=== PATIENT | male | born 1950 ===

== ENCOUNTER 2025-07-14 13:02 | Outpatient (BNV) | payer MEDICARE, SELFPAY | END 2025-07-21 15:26 | PROVIDERS: Admitting Provider Psychiatry & Neurology Psychiatry; Visit Provider Radiology Diagnostic Radiology | DX: K42.9 Umbilical hernia without obstruction or gangrene (principal); N28.1 Cyst of kidney, acquired; M16.0 Bilateral primary osteoarthritis of hip; M47.815 Spondylosis without myelopathy or radiculopathy, thoracolumbar region; M54.16 Radiculopathy, lumbar region; M48.061 Spinal stenosis, lumbar region without neurogenic claudication | CPT/HCPCS: 72132; 74178 ==

== ENCOUNTER 2025-07-14 13:02 | Outpatient (BNV) | payer MEDICARE, MEDICAID, SELFPAY | END 2025-07-17 07:23 | PROVIDERS: Admitting Provider Psychiatry & Neurology Psychiatry; Visit Provider Radiology Diagnostic Radiology | DX: R79.89 Other specified abnormal findings of blood chemistry (principal) | CPT/HCPCS: 76775 ==

== ENCOUNTER 2025-07-14 13:02 | Outpatient (BNV) | payer MEDICARE, SELFPAY | END 2025-08-08 14:59 | PROVIDERS: Admitting Provider Psychiatry & Neurology Psychiatry; Visit Provider Radiology Diagnostic Radiology | DX: S09.90XA Unspecified injury of head, initial encounter (principal) | CPT/HCPCS: 70450 ==

== ENCOUNTER 2025-07-14 13:02 | Outpatient (BNV) | payer MEDICARE, MEDICAID, SELFPAY | END 2025-07-19 11:20 | PROVIDERS: Admitting Provider Psychiatry & Neurology Psychiatry; Visit Provider Radiology Diagnostic Radiology | DX: N25.0 Renal osteodystrophy (principal); M25.551 Pain in right hip; M25.552 Pain in left hip; M48.062 Spinal stenosis, lumbar region with neurogenic claudication; R06.02 Shortness of breath | CPT/HCPCS: 71046; 72100; 73521 ==

== ENCOUNTER 2025-07-14 13:02 | Outpatient (BNV) | payer MEDICARE, MEDICAID, SELFPAY | END 2025-07-15 15:24 | PROVIDERS: Admitting Provider Psychiatry & Neurology Psychiatry; Visit Provider Radiology Diagnostic Radiology | DX: R07.1 Chest pain on breathing (principal) | CPT/HCPCS: 71045 ==

== ENCOUNTER 2025-07-14 13:02 | Outpatient (BNV) | payer MEDICARE, SELFPAY | END 2025-08-12 03:16 | PROVIDERS: Admitting Provider Psychiatry & Neurology Psychiatry; Visit Provider Radiology Diagnostic Radiology | DX: I51.7 Cardiomegaly (principal); R91.8 Other nonspecific abnormal finding of lung field | CPT/HCPCS: 71046 ==

== ENCOUNTER 2025-07-14 13:02 | Outpatient (BNV) | payer MEDICARE, SELFPAY | END 2025-07-30 14:03 | PROVIDERS: Admitting Provider Psychiatry & Neurology Psychiatry; Visit Provider Internal Medicine Cardiovascular Disease | DX: I44.0 Atrioventricular block, first degree (principal) | CPT/HCPCS: 93010 ==

== ENCOUNTER 2025-07-14 13:02 | Outpatient (BNV) | payer MEDICARE, SELFPAY | END 2025-07-30 15:29 | PROVIDERS: Admitting Provider Psychiatry & Neurology Psychiatry; Visit Provider Radiology Diagnostic Radiology | DX: Z03.89 Encounter for observation for other suspected diseases and conditions ruled out (principal) | CPT/HCPCS: 71046 ==

== ENCOUNTER 2025-07-14 13:02 | Inpatient (IN) | payer MEDICARE, SELFPAY ==
--- NOTE | ~2025-07-14 | XR_ITS ---
CLINICAL HISTORY: punched wall: swollen black and blue 3 view right hand Comparison: None provided Findings: Bones intact. No dislocations. No significant loss of joint space or osteophytes. No erosions. No radiopaque foreign body. IMPRESSION: 1. No acute findings This document has been electronically signed by: Kirill Shaver MD on 08/09/2025 18:57:46
--- NOTE | ~2025-07-14 | XR_ITS ---
EXAMINATION: XR HIP 2 OR MORE VIEWS BILATERAL HISTORY: Pain COMPARISON: There are no prior studies available for comparison. FINDINGS: A single AP view of the pelvis and two views of each hip are submitted. There is patchy increased sclerosis of the bones which may be due to renal osteodystrophy. Other etiologies are not excluded. There is no fracture or dislocation. The joint spaces are maintained. The soft tissues are unremarkable. XR/XR hip BI w PEL1V IMPRESSION: Patchy increased sclerosis which may be due to renal osteodystrophy. Other etiologies including metastatic disease are not excluded. Clinical correlation is recommended. Electronically signed by: Brice Bunch MD 07/19/2025 11:49 AM EDT
--- NOTE | ~2025-07-14 | CT_ITS ---
EXAMINATION: CT LUMBAR SPINE CLINICAL INFORMATION: Bilateral leg weakness and pain. COMPARISON: X-ray lumbar spine 07/19/2025. TECHNIQUE: 2 minute thin axial and reformatted 2 minute thin sagittal and coronal images of lumbar spine were obtained following IV 85 mL Omnipaque 350.. This CT examination was performed using dose optimization techniques as appropriate, variously including the following: *Automated exposure control *Adjustment of mA and/or kV according to patient size (this includes techniques or standardized protocols for targeted exams where dose is matched to indication/reason for exam; i.e. extremities or head) *Use of iterative reconstruction technique FINDINGS: Sagittal reconstructed images there is mild straightening of lumbar lordosis. The vertebral heights and alignment is normal. There is mild congenital narrowing of the entire lower dorsal and lumbar spinal canal. At T12-L1 disc level there is mild congenital spinal canal stenosis there is moderate narrowing of right neural foramina secondary to facet joint arthropathy. The left neural foramina is relatively patent. At L1-2 disc level there is mild congenital spinal canal stenosis. The neural foramina are patent bilaterally. At L2-3 disc level there is moderate congenital spinal canal stenosis with mild bilateral facet joint and ligament flavum hypertrophy resulting in moderate right lateral recess narrowing. There is a small bony spur projecting of the right facet joint and extending to the right lateral recess on axial and sagittal image 48/13 and 49/18 respectively. At L3-4 disc level there is diffuse disc bulge and bilateral facet joint hypertrophy resulting in moderate congenital spinal canal stenosis. The neural foramina are mildly narrowed bilaterally. At L4-5 disc level there is a broad-based diffuse bulge with moderate spinal canal stenosis. There is bilateral moderate facet joint arthropathy and hypertrophy resulting in bilateral mild narrowing of neural foramina. At L5-S1 disc level there is mild bulge with mild concentric spinal canal stenosis. The neural foramina are mildly narrowed bilaterally. There is no abnormal enhancement seen within the lower dorsal spinal canal or the region of conus to suspect any underlying lesion. No lytic or sclerotic process seen. No evidence of compression fracture. Visualized SI joints are symmetrical and normal. The presacral and paravertebral soft tissues are normal. CT/CT lumbar spine w IV con IMPRESSION: Congenital lumbar spinal canal stenosis from T12 through L5-S1 disc level as described above. Mild narrowing of neural foramina bilaterally at along the lumbar spinal canal. The findings are slightly worse on the right at the T12-L1 disc level there is a right facet joint hypertrophy extending into the neural foramina and a small bony spur extending into right lateral recess at the L2-3 disc level. No abnormal enhancement seen within the lower dorsal or lumbar spinal canal or the region of conus medullaris. If patient has persistent radiculopathy and numbness and tingling in the legs further evaluation with neurology may be helpful. Electronically signed by: Gabo Bush MD 07/22/2025 07:26 AM EDT
--- NOTE | ~2025-07-14 | XR_ITS ---
EXAMINATION: XR CHEST 2 VIEWS HISTORY: cough, SOB COMPARISON: Comparison is made with the prior examination dated 07/17/2025. FINDINGS: PA and lateral views of the chest are submitted. There is patchy airspace opacity at the right lung base without change, suspicious for early pneumonia. The left lung is clear. There is no pleural effusion, pneumothorax, or pulmonary vascular congestion. The heart is normal in size. The aorta is calcified. There is degenerative disc disease of the spine. XR/XR chest 2V IMPRESSION: Right lower lobe pneumonia. Follow-up is recommended to document resolution. Electronically signed by: Brice Bunch MD 07/19/2025 11:44 AM EDT
--- NOTE | ~2025-07-14 | CT_ITS ---
EXAMINATION: CT HEAD WITHOUT IV CONTRAST HISTORY: head injury. TECHNIQUE: Unenhanced helical CT of the head was performed per standard departmental protocol. Coronal and sagittal reformats of the head were also evaluated. One or more of the following techniques was used for dose reduction: Automated exposure control, adjustment of the mA and/or kV according to patient size, use of iterative reconstruction technique. DLP: 905 mGy-cm COMPARISON: There are no prior studies available for comparison. FINDINGS: BRAIN: There is mild prominence of the ventricular system and cortical sulci, consistent with atrophy. Periventricular and subcortical white matter hypodensities are noted which are nonspecific, but often seen in the setting of small vessel ischemic disease. There is no mass effect or midline shift. No intra- or extra-axial fluid collections are identified. SINUSES: There is mild mucosal thickening in the left maxillary sinus. The mastoid air cells and middle ear cavities are well pneumatized. ORBITS: The visualized orbits are unremarkable. BONES/SOFT TISSUES: The extracranial soft tissues are unremarkable. The calvarium is intact. No suspicious lytic or sclerotic lesions. CT/CT head/brain wo IV con IMPRESSION: No evidence of intracranial hemorrhage. Electronically signed by: Brice Bunch MD 08/08/2025 03:28 PM ANDREW
--- NOTE | ~2025-07-14 | XR_ITS ---
CLINICAL HISTORY: Fever, hypoxia 2 view chest x-ray Comparison: 07/30/2025 Findings: There are new patchy multifocal bilateral pulmonary infiltrates most significant within the right lower lobe. There are likely new small bilateral pleural effusions. There is stable cardiomegaly. No acute fracture. IMPRESSION: Stable cardiomegaly Multifocal new bilateral pulmonary infiltrates most significant within the right lower lobe likely pneumonia Likely new small bilateral pleural effusions This document has been electronically signed by: Brice Richmond MD on 08/12/2025 05:29:50
--- NOTE | ~2025-07-14 | XR_ITS ---
CLINICAL HISTORY: Chest Xray 2 view chest x-ray. Comparison: 07/19/2025 Findings: No consolidation or effusion. Cardiac and mediastinal contours are stable. Bones unremarkable. Impression: 1. No acute pulmonary disease. This document has been electronically signed by: Héctor Parikh MD on 07/30/2025 16:06:55
--- NOTE | ~2025-07-14 | XR_ITS ---
EXAMINATION: XR LUMBAR SPINE 2-3 VIEWS HISTORY: Pain COMPARISON: There are no prior studies for comparison. FINDINGS: AP, lateral, and coned down views of the lumbar spine are submitted. Osseous mineralization is normal. Five nonrib-bearing lumbar vertebral bodies are identified, maintaining normal height and alignment without evidence of fracture or spondylolisthesis. There is mild degenerative disc disease with disc space narrowing and osteophyte formation. The posterior elements are intact. There is calcification of the abdominal aorta. XR/XR lumbar spine 2-3V IMPRESSION: Mild degenerative disc disease. Electronically signed by: Brice Bunch MD 07/19/2025 11:50 AM EDT
--- NOTE | ~2025-07-14 | CT_ITS ---
EXAMINATION: CT ABDOMEN AND PELVIS WITHOUT AND WITH CONTRAST CLINICAL INFORMATION: Persistent bilateral hip pain. COMPARISON: None available. TECHNIQUE: Multidetector volumetric imaging was performed of the abdomen and pelvis before and after the IV administration of 85 mL of Omnipaque 350 strength intravenous contrast without reported immediate complications. Sagittal and coronal reformatted images were obtained on the technologist's workstation. This CT examination was performed using dose optimization techniques as appropriate, variously including the following: *Automated exposure control *Adjustment of mA and/or kV according to patient size (this includes techniques or standardized protocols for targeted exams where dose is matched to indication/reason for exam; i.e. extremities or head) *Use of iterative reconstruction technique. Total of DLP: 1389 mGy centimeter. FINDINGS: LUNG BASES: Pulmonary patchy groundglass. Peribronchial septal thickening. LIVER, GALLBLADDER, AND BILIARY TREE: Liver measures 14 cm. No focal enhancing mass. Portal veins and hepatic veins are patent.. Gallbladder is contracted. No pericholecystic fluid collection or gallbladder wall thickening. No intrahepatic or extrahepatic biliary ductal dilatation. PANCREAS: No peripancreatic fluid collections. No focal mass. Fatty morphology pattern and reduced volume. No main pancreatic ductal dilatation. SPLEEN: 11 cm. No focal mass. ADRENAL GLANDS: No nodular lesions. KIDNEYS AND URETERS: No hydronephrosis. No nephrolithiasis. Normal enhancement pattern of the renal cortex. 1.2 cm cyst at the corticomedullary junction of the midportion left kidney. No enhancing renal mass.. BLADDER: Fluid-filled. GASTROINTESTINAL TRACT: Radiopaque tablet in the antrum of the stomach. Abundant stool throughout the large intestine. No intestinal obstruction pattern. Appendix is normal. No intestinal wall thickening. No pneumatosis intestinalis. No ascites. No pneumoperitoneum. ABDOMINAL WALL: Fat-containing lobulated umbilical hernia. LYMPH NODES: Nonspecific mildly prominent mesenteric and retroperitoneum and inguinal. VASCULAR: Mixed plaques throughout the abdominal aorta wall without aneurysm or dissection. Mixed plaques in the iliac arteries and femoral arteries calcified plaques in the coronary arteries. Mixed plaques in the descending thoracic aorta. Vascular calcifications in the renal arteries mostly on the left kidney. PELVIC VISCERA: Not enlarged. OSSEOUS STRUCTURES: Multilevel marginal osteophyte formation and syndesmophyte formation throughout the axial skeleton without acute fracture or gross listhesis. Multilevel calcification of the ligamentum flavum from T12-L1 to L4-5. Bilateral facet joint hypertrophy at multiple levels pronounced at L4-5 and L5-S1. Multilevel central spinal canal stenosis from L2-3 to L5-S1. Sclerosis at the sacroiliac joints, bilaterally. Degenerative changes in the symphysis pubis and coxofemoral joints. Degenerative changes with the soft tissue calcifications in the greater trochanter left femur/left hip. Fatty atrophy of the gluteal muscles CT/CT abdomen pelvis wo/w IV con IMPRESSION: Lobulated fat-containing umbilical hernia. Atelectasis versus airspace disease, lung bases. Abundant stool without intestinal obstruction pattern. Simple cyst, left kidney. Degenerative changes both hips with questionable trochanter bursitis. Multilevel thoracolumbar spondylosis resulting in central spinal canal stenosis. Please for to the CT lumbar spine. Fleischner guidelines were followed. Electronically signed by: Brice Thompson MD 07/22/2025 07:57 AM EDT
--- NOTE | ~2025-07-14 | XR_ITS ---
CLINICAL HISTORY: chest congestion, crackles lower lobes 1 view chest x-ray Comparison: 07/15/2025 Findings: There is mild right basilar pulmonary infiltrate. Heart size is normal. No acute fracture. IMPRESSION: Mild right basilar pulmonary infiltrate suspicious for pneumonia This document has been electronically signed by: Brice Richmond MD on 07/17/2025 08:50:44
--- NOTE | ~2025-07-14 | CT_ITS ---
CLINICAL HISTORY: ? pna on cxr CT chest without contrast Comparison: CR - XR CHEST 1V - 07/17/25 07:23 EDT Findings: Mild cardiomegaly.Trace pericardial effusion. Calcific coronary artery disease: Mild. Shotty mediastinal lymph nodes likely reactive Mild interstitial and bronchial wall thickening lung bases possibly pneumonic. No pneumothorax or pleural effusions, plaques or calcifications. Central airways are patent. No bronchiectasis. No thyroid nodules. Probable gynecomastia [id number]-[id number]-left correlate clinically. No axillary adenopathy. Limited view of the upper abdomen is normal. No acute fractures or pathologic bone lesions. Impression: 1. Mild interstitial and bronchial wall thickening lung bases probably pneumonic. No airspace disease. No parapneumonic effusion. Reactive mediastinal lymph nodes. 2. Mild calcified coronary artery disease. Mild cardiomegaly. Trace pericardial effusion. 3. Suspect gynecomastia correlate clinically This document has been electronically signed by: Sheldon Brito MD on 07/17/2025 11:38:47
--- NOTE | ~2025-07-14 | US_ITS ---
CLINICAL HISTORY: worsning creatinine US Renal Comparison: None provided Findings: Right kidney normal size and echotexture, 11.8 cm length. Left kidney normal size and echotexture, 10.6 cm length. There is a Bosniak 1 left renal cortical 1.6 x 1.4 x 1.3 cm cyst No collecting system dilatation of either kidney. Normal color Doppler. IMPRESSION: 1. No acute findings. This document has been electronically signed by: Kasi Drummond MD on 07/17/2025 08:51:51
--- NOTE | ~2025-07-14 | XR_ITS ---
EXAMINATION: XR CHEST 1 VIEW HISTORY: Pain with inspiration COMPARISON: There are no prior studies available for comparison. FINDINGS: A single AP portable view of the chest performed at 3:13 PM is submitted. The lungs are expanded and clear. There is no pleural effusion, pneumothorax, or pulmonary vascular congestion. The heart is normal in size. The bones are intact. XR/XR chest 1V IMPRESSION: Clear lungs. Electronically signed by: Brice Bunch MD 07/15/2025 03:40 PM EDT
--- NOTE | ~2025-07-14 | XR_ITS ---
CLINICAL HISTORY: severe abd pain 1 view abdomen Comparison: None provided Findings: No pneumoperitoneum or pneumatosis. No abnormal calcifications. No acute fractures. There is diffuse fecal material seen throughout the colon. IMPRESSION: 1. Constipation. 2. No acute abdominal findings. This document has been electronically signed by: Kirill hSaver MD on 08/09/2025 21:12:03
[2025-07-14 13:58] VITALS: BMI 38.2
[2025-07-14 13:58] LABS: Glucose, Whole Blood 258 mg/dL (60-115)
[2025-07-14 16:26] LABS: Glucose, Whole Blood 298 mg/dL (60-115)
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
[2025-07-14 20:00] VITALS: BP 122/60; PULSE 69; RESP 16; TEMP 36.4; O2SAT 94
[2025-07-14 20:30] LABS: Glucose, Whole Blood 208 mg/dL (60-115)
[2025-07-14] MEDS: Insulin Glargine,Hum.rec.anlog 100 UNIT/ML 10 ML VIAL 50 UNIT SUBCUT (21:14)
[2025-07-14] MEDS: Ferrous Sulfate 324 MG TABLET.DR PO (21:15)
[2025-07-15 06:43] LABS: Glucose, Whole Blood 163 mg/dL (60-115)
[2025-07-15 08:00] VITALS: BP 83/50; PULSE 91; RESP 16; TEMP 36.5; O2SAT 96
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
[2025-07-15] MEDS: Ferrous Sulfate 324 MG TABLET.DR PO ×3 (09:02→20:38)
[2025-07-15 09:06] LABS: Alanine Aminotransferase 13 U/L (0-40); Albumin Level 3.6 g/dL (3.5-5.0); Alkaline Phosphatase 81 U/L (39-117); Anion Gap 11 (12-20); Aspartate Amino Transferase 17 U/L (5-37); Blood Urea Nitrogen 44 mg/dL (9-16); Calcium 8.8 mg/dL (8.4-10.2); Carbon Dioxide 26 mmol/L (22-29); Chloride 103 mmol/L (96-108); Cholesterol 92 mg/dL (<200); Creatinine Clr Calc Pharmacy 40.1; Estimated Glomerular Filt Rate 38; HDL Cholesterol 23 mg/dL (>40); Potassium 4.9 mmol/L (3.3-5.1); Sodium 135 mmol/L (135-145); Total Protein 7.5 g/dL (6.5-8.0); Triglycerides 137 mg/dL (<150)
[2025-07-15 09:14] LABS: Thyroid Stimulating Hormone 2.53 uIU/mL (0.32-4.0)
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
[2025-07-15 09:54] LABS: Vitamin B12 941 pg/mL (200-900)
[2025-07-15 10:20] LABS: Folate 14.7 ng/mL (> or = 4.0)
[2025-07-15 11:04] VITALS: BP 114/58; PULSE 75
[2025-07-15 11:34] VITALS: BP 105/52
[2025-07-15 11:34] LABS: Glucose, Whole Blood 235 mg/dL (60-115)
[2025-07-15 12:27] VITALS: BP 105/49; BP 95/47; PULSE 78; PULSE 84
--- NOTE | 2025-07-15 15:28 | HO.WOUND ---
Wound Consult: Initial 75yr old?male admitted to [facility] on 07/14/25 13:02- See progress notes and H&P for detailed history.? Wound consult placed for abrasions to left hand and left leg.? Patient was not responsive to environment at the time of consult, chart review reveals these are self inflicted abrasions. ? Left Hand Left Leg Etiology: ?self inflicted abrasions Wound Bed: dry stable scabs in place no erythema no s/s of infection at this time Drainage / Odor: None Edges: ? linear and well defined Krysta wound: ? No Induration, Fluctuance or Warmth noted Goals of Treatment: ? May leave FURNACE [employer] TE[employer] and keep dry. No topical interventions needed at this time - may leave DILAN may cover with dry dressing for slight oozing or comfort. Reconsult wound care or provider if significant drainage occurs or s/s of infection develop. Re-consult wound care Nurse for wound deterioration or wound changes.
[2025-07-15] MEDS: Flu Vacc TS2025-26(6mo up)/PF 0.5 ML SYRINGE IM (15:52)
[2025-07-15 16:30] LABS: Glucose, Whole Blood 218 mg/dL (60-115)
[2025-07-15 20:00] VITALS: BP 185/55; RESP 18; TEMP 36.5; O2SAT 95
[2025-07-15] MEDS: Insulin Glargine,Hum.rec.anlog 100 UNIT/ML 10 ML VIAL 50 UNIT SUBCUT (20:38)
[2025-07-15 20:39] LABS: Glucose, Whole Blood 218 mg/dL (60-115)
[2025-07-16 06:51] LABS: Glucose, Whole Blood 165 mg/dL (60-115)
[2025-07-16] MEDS: Ferrous Sulfate 324 MG TABLET.DR PO ×3 (08:25→21:14)
[2025-07-16 08:27] VITALS: BP 114/59; PULSE 85; RESP 18; TEMP 36.2; O2SAT 96
[2025-07-16] MEDS: Metoprolol Succinate ER 50 MG TAB.ER.24H PO (08:28)
[2025-07-16 09:29] VITALS: BP 151/68; PULSE 80
[2025-07-16 11:30] LABS: Glucose, Whole Blood 220 mg/dL (60-115)
--- NOTE | 2025-07-16 13:04 | P.PNPSI_ITS ---
Subjective Subjective Date of Service: 07/16/25 Reason For Visit: Depression Subjective Notes: Conditional Voluntary Interim History: He is seen and discussed in rounds today. Records and plans were reviewed. He does have command hallucinations, at times telling him to hurt himself which she has been doing by picking his skin. Apparently his creatinine level was 1.2 at [facility] and here has gone up to 1.7. No orthostasis detected. A hospitalist consult is placed in light of his CHF Review of Systems Review of Systems Yes all other systems are reviewed and are negative Mental Status Exam Mental Status Exam Narrative: Appearance: wearing hospital gown, fair hygiene, in NAD Behavior: cooperative, friendly Psychomotor: no agitation or retardation noted Speech: clear, normal rate/rhythm/volume, spontaneous TP: linear TC: hearing voices, depressed about not having stable place to live. Mood: Affect: SI: reports at times does have thoughts of wanting to hurt himself when hearing voices HI: none VH/AH: Delusions: Insight/judgment: fair x 2. Memory/cog: alert, oriented x 3. not formally tested. Diagnostics Vital Signs (24Hr): Vital Signs - 24 hr 07/15/25 20:00 07/16/25 08:27 07/16/25 09:29 Temperature 97.7 F 97.2 F Pulse Rate 85 80 Respiratory Rate 18 18 Blood Pressure 185/55 H 114/59 L 151/68 H Pulse Oximetry 95 96 Oxygen Delivery Method Room Air Room Air BMI result Body Mass Index 38.2 Labs 07/15/25 07:26 Labs: Laboratory Results - last 48 hr 07/14/25 07/14/25 07/14/25 13:54 16:08 20:10 Sodium Potassium Chloride Carbon Dioxide Anion Gap BUN Creatinine Estim Creat Clear Calc Estimated GFR POC Glucose 258 H 298 H 208 H Random Glucose Estimat Average Glucose Hemoglobin A1c % Calcium Total Bilirubin AST ALT Alkaline Phosphatase Total Protein Albumin Triglycerides Cholesterol LDL Cholesterol, Calc HDL Cholesterol Vitamin B12 25-OH Vitamin D Total Folate TSH 07/15/25 07/15/25 07/15/25 06:36 07:26 11:25 Sodium 135 Potassium 4.9 Chloride 103 Carbon Dioxide 26 Anion Gap 11 L BUN 44 H Creatinine 1.74 H Estim Creat Clear Calc 40.1 Estimated GFR 38 POC Glucose 163 H 235 H Random Glucose 162 H Estimat Average Glucose 214 Hemoglobin A1c % 9.1 H Calcium 8.8 Total Bilirubin 0.2 AST 17 ALT 13 Alkaline Phosphatase 81 Total Protein 7.5 Albumin 3.6 Triglycerides 137 Cholesterol 92 LDL Cholesterol, Calc 42 HDL Cholesterol 23 L Vitamin B12 941 H 25-OH Vitamin D Total 19.6 L Folate 14.7 TSH 2.53 07/15/25 07/15/25 07/16/25 16:22 20:34 06:45 Sodium Potassium Chloride Carbon Dioxide Anion Gap BUN Creatinine Estim Creat Clear Calc Estimated GFR POC Glucose 218 H 218 H 165 H Random Glucose Estimat Average Glucose Hemoglobin A1c % Calcium Total Bilirubin AST ALT Alkaline Phosphatase Total Protein Albumin Triglycerides Cholesterol LDL Cholesterol, Calc HDL Cholesterol Vitamin B12 25-OH Vitamin D Total Folate TSH 07/16/25 11:27 Sodium Potassium Chloride Carbon Dioxide Anion Gap BUN Creatinine Estim Creat Clear Calc Estimated GFR POC Glucose 220 H Random Glucose Estimat Average Glucose Hemoglobin A1c % Calcium Total Bilirubin AST ALT Alkaline Phosphatase Total Protein Albumin Triglycerides Cholesterol LDL Cholesterol, Calc HDL Cholesterol Vitamin B12 25-OH Vitamin D Total Folate TSH Imaging Radiology Impressions: ITS Impressions Chest X-Ray 07/15/25 15:24 IMPRESSION: Clear lungs. Electronically signed by: Brice Bunch MD 07/15/2025 03:40 PM EDT RP Medications Medications Current Medications Acetaminophen (Acetaminophen 325 Mg Tablet) 650 mg PO Q6H PRN PRN Reason: Headache/Pain, Scale 1-10 Al Hydroxide/Mg Hydroxide (Magnesium Hydrox/Alum Hydrox 30 Ml Oral.Susp) 30 ml PO Q6H PRN PRN Reason: Heartburn/Nausea Aspirin (Aspirin 81 Mg Tab.Chew) 81 mg PO DAILY [facility] Last Admin: 07/16/25 08:28 Dose: 81 mg Atorvastatin Calcium (Atorvastatin Calcium 40 Mg Tablet) 40 mg PO BEDTIME [facility] Last Admin: 07/15/25 20:38 Dose: 40 mg Clopidogrel Bisulfate (Clopidogrel Bisulfate 75 Mg Tablet) 75 mg PO DAILY [facility] Last Admin: 07/16/25 08:25 Dose: 75 mg Cyanocobalamin (Cyanocobalamin (Vitamin B-12) 1,000 Mcg Tablet) 1,000 mcg PO DAILY [facility] Last Admin: 07/16/25 08:25 Dose: 1,000 mcg Doxycycline Monohydrate (Doxycycline Monohydrate 100 Mg Capsule) 100 mg PO BID [facility] Last Admin: 07/16/25 08:26 Dose: 100 mg Empagliflozin (Empagliflozin 10 Mg Tablet) 10 mg PO DAILY [facility] Last Admin: 07/16/25 08:26 Dose: 10 mg Ferrous Sulfate (Ferrous Sulfate 324 Mg Tablet.) 324 mg PO TID [facility] Last Admin: 07/16/25 08:25 Dose: 324 mg Fluticasone Propionate (Fluticasone Propionate Nasal 16 Gm [place]) 1 spray NOSTRIL-B DAILY [facility] Last Admin: 07/16/25 08:29 Dose: 1 spray Furosemide (Furosemide 40 Mg Tablet) 40 mg PO BID@0900,1700 [facility] Last Admin: 07/16/25 09:15 Dose: 40 mg Gabapentin (Gabapentin 600 Mg Tablet) 600 mg PO TID [facility] Last Admin: 07/16/25 08:24 Dose: 600 mg Hydroxyzine HCl (Hydroxyzine Hcl 25 Mg Tablet) 25 mg PO Q6H PRN PRN Reason: mild anxiety Insulin Glargine (Insulin Glargine,Hum.Rec.Anlog 100 Unit/Ml 10 Ml Vial) 50 unit SUBCUT BEDTIME [facility] Last Admin: 07/15/25 20:38 Dose: 50 unit Insulin Human Lispro (Insulin Lispro 100 Unit/Ml 3 Ml Vial) 0 unit SUBCUT QIDACHS [facility]; Protocol Last Admin: 07/16/25 12:15 Dose: 4 unit Lorazepam (Lorazepam 0.5 Mg Tablet) 0.5 mg PO BID PRN PRN Reason: Anxiety Losartan Potassium (Losartan Potassium 25 Mg Tablet) 25 mg PO DAILY [facility] Last Admin: 07/16/25 08:28 Dose: 25 mg Magnesium Hydroxide (Milk Of Magnesia 30 Ml Oral.Susp) 30 ml PO DAILY PRN PRN Reason: Constipation Melatonin (Melatonin 3 Mg Tablet) 6 mg PO BEDTIME [facility] Last Admin: 07/15/25 20:43 Dose: 6 mg Metoprolol Succinate (Metoprolol Succinate Er 50 Mg Tab.Er.24h) 50 mg PO DAILY [facility] Last Admin: 07/16/25 08:28 Dose: 50 mg Montelukast Sodium (Montelukast Sodium 10 Mg Tablet) 10 mg PO BEDTIME [facility] Last Admin: 07/15/25 20:43 Dose: 10 mg Pantoprazole Sodium (Pantoprazole Sodium 20 Mg Tablet.) 40 mg PO DAILY [facility] Last Admin: 07/16/25 08:24 Dose: 40 mg Risperidone (Risperidone 1 Mg Tablet) 1 mg PO BID [facility] Last Admin: 07/16/25 08:26 Dose: 1 mg Tamsulosin HCl (Tamsulosin Hcl 0.4 Mg Capsule) 0.4 mg PO BEDTIME [facility] Last Admin: 07/15/25 20:42 Dose: 0.4 mg Thiamine HCl (Thiamine Hcl 100 Mg Tablet) 100 mg PO DAILY [facility] Last Admin: 07/16/25 08:26 Dose: 100 mg Tizanidine HCl (Tizanidine Hcl 4 Mg Tablet) 2 mg PO BEDTIME [facility] Last Admin: 07/15/25 20:42 Dose: 2 mg Trazodone HCl (Trazodone Hcl 50 Mg Tablet) 50 mg PO BEDTIME [id number] PRN PRN Reason: Insomnia Vitamin D (Cholecalciferol (Vitamin D3) 25 Mcg Tablet) 50 mcg PO DAILY [facility] Last Admin: 07/16/25 08:25 Dose: 50 mcg Allergies Allergies Allergy/AdvReac Type Severity Reaction Status Date / Time Penicillins (PCN) AdvReac Unknown Verified 07/14/25 14:00 Assessment & Plan Assessment & Plan (1) MDD (major depressive disorder), recurrent, severe, with psychosis: Status: Acute Code(s): F33.3 - Major depressive disorder, recurrent, severe with psychotic symptoms Assessment and Plan: r/o schizophrenia. Plan Mr. Eden is a 75 year-old male who was initially brought to [facility] via EMS on [address] by police [place] inflic[place] laceration on left hand. No stitches required. He continued to self harm while in the ED. He reports he is hearing voices (reports male voice saying I want to see blood repeatedly), which then led to him acting on the voices thinking it may quiet them down. Although he endorses depressed mood in context of not having stable place to live and passive SI, he reports he does not want to but can't help if voices are ongoing. He reports he is not hearing voices now. We discussed risks, benefits and alternative treatment options. He agreed to start risperidone 1mg po BID. PLAN 1. admit to S1, CV, 5 minutes check. 2. start risperidone 1mg po BID. ativan prn as needed for anxiety 3. obtain collateral information 4. aftercare planning 07/16: Continue current regimen and plans. Hospitalist consult placed Reason for continued inpatient stay Substantial Risk for: inability to function and med/psych decompensation Time Spent With Patient Time: Total time managing care of this patient today ____ minutes.
[2025-07-16 13:14] LABS: Alanine Aminotransferase 14 U/L (0-40); Albumin Level 3.9 g/dL (3.5-5.0); Alkaline Phosphatase 82 U/L (39-117); Anion Gap 12 (12-20); Aspartate Amino Transferase 19 U/L (5-37); Blood Urea Nitrogen 53 mg/dL (9-16); Calcium 9.3 mg/dL (8.4-10.2); Carbon Dioxide 27 mmol/L (22-29); Chloride 98 mmol/L (96-108); Creatinine Clr Calc Pharmacy 43.9; Estimated Glomerular Filt Rate 43; Potassium 4.7 mmol/L (3.3-5.1); Sodium 132 mmol/L (135-145); Total Protein 8.1 g/dL (6.5-8.0)
--- NOTE | 2025-07-16 14:25 | PC.NURSE ---
Deejay picked open his left fourth digit and the area on his left outer proximal hand abrasion was white and boggy with a scant amount of serous drainage on the old dressing. Dr. Lucio updated, OK to do normal saline washes, apply Bacitracin and dry band aid to both wounds. Treatment completed. I will update the wound nurse.
[2025-07-16 16:15] LABS: Glucose, Whole Blood 240 mg/dL (60-115)
[2025-07-16 20:00] VITALS: BP 132/60; PULSE 70; RESP 16; TEMP 36.4; O2SAT 97
[2025-07-16 20:34] LABS: Glucose, Whole Blood 223 mg/dL (60-115)
[2025-07-16] MEDS: Insulin Glargine,Hum.rec.anlog 100 UNIT/ML 10 ML VIAL 50 UNIT SUBCUT (21:13)
--- NOTE | 2025-07-16 21:32 | HO.PM.IMCN ---
History of Present Illness Data of Consult Service Date: 07/16/25 Requesting physician: Phil Hammer Primary Care Provider: Unknown Physician HPI Reason for consult: worsening cr 75-year-old Czech speaking male with a past medical history of coronary artery disease, history of stroke, type 2 diabetes with insulin-dependent, hypertension, BPH, congestive heart failure and CKD 3B admitted to [address], consult placed for worsening creatinine. pt's baseline on chart review from [facility] shows cr of 1.20. pt complains of dysuria and ?difficulty urinating. he is a poor historian despite snow plow operator. he also complains of chest congestion and fluid around his heart and cannot report the onset of sx, possibly at baseline. no SOB, nausea, vomiting, chest pain. he is requesting albuterol for his chest congestion. Review of Systems Review of Systems: Yes all other systems are reviewed and are negative [facility] Social History Housing: Other Do you presently have visiting nurse or other home services: No Comment: wheel chair Patient Tobacco Use Status: Former Tobacco user Tobacco use type: Cigarette Smoked in Last 30 Days: No e-Cigarette/Vaping Use: Never Used Currently Displaying Signs/Symptoms of Drug Intoxication Withdrawal: No Have you been hit, kicked, punched, or otherwise hurt by someone within the past year? If so, by whom?: No Is there a partner from a previous relationship who is making you feel unsafe now?: No Are you made to feel afraid or neglected: No Spiritual Healthcare Practices: Voodoo Advance Directives: No Advance Directives Information Provided: No Do you have thoughts of harming others: None Do you have a plan to hurt others: No Plan Recently lost weight without trying: No Nutrition Risks: No Nutritional Risk Poor oral hygiene: No service: No Sexual orientation: Straight/Heterosexual Meds Allergies Allergy/AdvReac Type Severity Reaction Status Date / Time Penicillins (PCN) AdvReac Unknown Verified 07/14/25 14:00 Active Medications: Current Medications Acetaminophen (Acetaminophen 325 Mg Tablet) 650 mg PO Q6H PRN PRN Reason: Headache/Pain, Scale 1-10 Al Hydroxide/Mg Hydroxide (Magnesium Hydrox/Alum Hydrox 30 Ml Oral.Susp) 30 ml PO Q6H PRN PRN Reason: Heartburn/Nausea Aspirin (Aspirin 81 Mg Tab.Chew) 81 mg PO DAILY [facility] Last Admin: 07/16/25 08:28 Dose: 81 mg Atorvastatin Calcium (Atorvastatin Calcium 40 Mg Tablet) 40 mg PO BEDTIME [facility] Last Admin: 07/16/25 21:13 Dose: 40 mg Clopidogrel Bisulfate (Clopidogrel Bisulfate 75 Mg Tablet) 75 mg PO DAILY [facility] Last Admin: 07/16/25 08:25 Dose: 75 mg Cyanocobalamin (Cyanocobalamin (Vitamin B-12) 1,000 Mcg Tablet) 1,000 mcg PO DAILY [facility] Last Admin: 07/16/25 08:25 Dose: 1,000 mcg Doxycycline Monohydrate (Doxycycline Monohydrate 100 Mg Capsule) 100 mg PO BID [facility] Last Admin: 07/16/25 21:13 Dose: 100 mg Empagliflozin (Empagliflozin 10 Mg Tablet) 10 mg PO DAILY [facility] Last Admin: 07/16/25 08:26 Dose: 10 mg Ferrous Sulfate (Ferrous Sulfate 324 Mg Tablet.Dr) 324 mg PO TID [facility] Last Admin: 07/16/25 21:14 Dose: 324 mg Fluticasone Propionate (Fluticasone Propionate Nasal 16 Gm [place]) 1 spray NOSTRIL-B DAILY [facility] Last Admin: 07/16/25 08:29 Dose: 1 spray Furosemide (Furosemide 40 Mg Tablet) 40 mg PO BID@0900,1700 [facility] Last Admin: 07/16/25 16:30 Dose: 40 mg Gabapentin (Gabapentin 600 Mg Tablet) 600 mg PO TID [facility] Last Admin: 07/16/25 21:14 Dose: 600 mg Hydroxyzine HCl (Hydroxyzine Hcl 25 Mg Tablet) 25 mg PO Q6H PRN PRN Reason: mild anxiety Insulin Glargine (Insulin Glargine,Hum.Rec.Anlog 100 Unit/Ml 10 Ml Vial) 50 unit SUBCUT BEDTIME [facility] Last Admin: 07/16/25 21:13 Dose: 50 unit Insulin Human Lispro (Insulin Lispro 100 Unit/Ml 3 Ml Vial) 0 unit SUBCUT QIDACHS [facility]; Protocol Last Admin: 07/16/25 21:13 Dose: 4 unit Lorazepam (Lorazepam 0.5 Mg Tablet) 0.5 mg PO BID PRN PRN Reason: Anxiety Losartan Potassium (Losartan Potassium 25 Mg Tablet) 25 mg PO DAILY [facility] Last Admin: 07/16/25 08:28 Dose: 25 mg Magnesium Hydroxide (Milk Of Magnesia 30 Ml Oral.Susp) 30 ml PO DAILY PRN PRN Reason: Constipation Melatonin (Melatonin 3 Mg Tablet) 6 mg PO BEDTIME [facility] Last Admin: 07/16/25 21:14 Dose: 6 mg Metoprolol Succinate (Metoprolol Succinate Er 50 Mg Tab.Er.24h) 50 mg PO DAILY [facility] Last Admin: 07/16/25 08:28 Dose: 50 mg Montelukast Sodium (Montelukast Sodium 10 Mg Tablet) 10 mg PO BEDTIME [facility] Last Admin: 07/16/25 21:13 Dose: 10 mg Pantoprazole Sodium (Pantoprazole Sodium 20 Mg Tablet.Dr) 40 mg PO DAILY [facility] Last Admin: 07/16/25 08:24 Dose: 40 mg Risperidone (Risperidone 1 Mg Tablet) 1 mg PO BID [facility] Last Admin: 07/16/25 21:14 Dose: 1 mg Tamsulosin HCl (Tamsulosin Hcl 0.4 Mg Capsule) 0.4 mg PO BEDTIME [facility] Last Admin: 07/16/25 21:14 Dose: 0.4 mg Thiamine HCl (Thiamine Hcl 100 Mg Tablet) 100 mg PO DAILY [facility] Last Admin: 07/16/25 08:26 Dose: 100 mg Tizanidine HCl (Tizanidine Hcl 4 Mg Tablet) 2 mg PO BEDTIME [facility] Last Admin: 07/16/25 21:14 Dose: 2 mg Trazodone HCl (Trazodone Hcl 50 Mg Tablet) 50 mg PO BEDTIME MRX1 PRN PRN Reason: Insomnia Vitamin D (Cholecalciferol (Vitamin D3) 25 Mcg Tablet) 50 mcg PO DAILY [facility] Last Admin: 07/16/25 08:25 Dose: 50 mcg Home Medications ?Medication ?Instructions ?Recorded ?Confirmed ?Last Taken ?Type Aspir-81 81 mg PO DAILY 07/14/25 07/14/25 Unknown History Singulair 10 mg PO BEDTIME 07/14/25 07/14/25 Unknown History atorvastatin 40 mg PO BEDTIME 07/14/25 07/14/25 Unknown History cholecalciferol (vitamin D3) 50,000 unit PO QWEEK 07/14/25 07/14/25 Unknown History clopidogrel 75 mg PO DAILY 07/14/25 07/14/25 Unknown History cyanocobalamin (vitamin B-12) 1,000 mcg PO DAILY 07/14/25 07/14/25 Unknown History 1,000 mcg tablet dapagliflozin propanediol 5 mg PO DAILY 07/14/25 07/14/25 Unknown History docusate sodium 100 mg PO DAILY 07/14/25 07/14/25 Unknown History escitalopram oxalate 5 mg PO DAILY 07/14/25 07/14/25 Unknown History ferrous sulfate 324 mg PO TID 07/14/25 07/14/25 Unknown History furosemide 40 mg PO BID 07/14/25 07/14/25 Unknown History gabapentin 600 mg PO TID 07/14/25 07/14/25 Unknown History insulin glargine 100 unit/mL (3 50 unit subcut BEDTIME 07/14/25 07/14/25 Unknown History mL) subcutaneous pen (Basaglar KwikPen U-100 Insulin) insulin lispro See Rx Instructions .Route .COMPLEX 07/14/25 07/14/25 Unknown History insulin lispro See Rx Instructions .Route .COMPLEX 07/14/25 07/14/25 Unknown History insulin lispro See Rx Instructions .Route .COMPLEX 07/14/25 07/14/25 Unknown History insulin lispro See Rx Instructions .Route .COMPLEX 07/14/25 07/14/25 Unknown History lorazepam 0.5 mg PO BID PRN Anxiety 07/14/25 07/14/25 Unknown History losartan 50 mg PO DAILY 07/14/25 07/14/25 Unknown History melatonin 6 mg PO BEDTIME 07/14/25 07/14/25 Unknown History metoprolol succinate 50 mg 50 mg PO DAILY 07/14/25 07/14/25 Unknown History tablet,extended release 24 hr pantoprazole 40 mg PO DAILY 07/14/25 07/14/25 Unknown History tamsulosin 0.4 mg PO DAILY 07/14/25 07/14/25 Unknown History thiamine HCl (vitamin B1) 100 mg PO DAILY 07/14/25 07/14/25 Unknown History tizanidine 2 mg PO BEDTIME 07/14/25 07/14/25 Unknown History Physical Exam Vital Signs and Narrative: Vital Signs: Last Vital Signs Temp 97.6 F 07/16/25 20:00 Pulse 70 07/16/25 20:00 Resp 16 07/16/25 20:00 BP 132/60 07/16/25 20:00 Pulse Ox 97 07/16/25 20:00 O2 Del Method Room Air 07/16/25 20:00 BMI result Body Mass Index 38.2 General: AOx3, no acute distress. faroese interpretation used via iPad. Resp: crackles bilateral lung bases, no respiratory distress CVS: S1, S2, RRR GI: +BS, NT, no distention Skin: Warm, dry Neuro: Cranial nerves II-XII grossly intact bilaterally. Motor grossly intact bilaterally Extremities: No pitting edema Psych: Appropriate affect Results Labs 07/16/25 12:46 Labs: Laboratory Results - last 24 hr 07/16/25 07/16/25 07/16/25 06:45 11:27 12:46 Anion Gap 12 Estim Creat Clear Calc 43.9 Estimated GFR 43 POC Glucose 165 H 220 H Random Glucose 251 H Calcium 9.3 Total Bilirubin 0.2 AST 19 ALT 14 Alkaline Phosphatase 82 Total Protein 8.1 H Albumin 3.9 07/16/25 07/16/25 16:11 20:29 Anion Gap Estim Creat Clear Calc Estimated GFR POC Glucose 240 H 223 H Random Glucose Calcium Total Bilirubin AST ALT Alkaline Phosphatase Total Protein Albumin Assessment and Plan (1) Acute kidney injury superimposed on stage 3b chronic kidney disease: Status: Acute Plan 75-year-old Czech speaking male with a past medical history of coronary artery disease, history of stroke, type 2 diabetes with insulin-dependent, hypertension, BPH, congestive heart failure and CKD 3B admitted to [facility], consult placed for worsening creatinine. MAMADOU on CKD 3B, improving 1.47 to 1.59, baseline 1.20 - given that pt is improving I do not feel that transfer to medical floor for IVF is needed at this time. would not reccomend IVF due to CHF and improving cr. - encourage PO fluids - bladder scan - UA/cx - bilateral renal US - nephrology consult - CXR due to chest congestion, likely chronic, does not appear to have fluid overload and vitals are stable - hold lasix due to MAMADOU, will resume if CXR with fluid overload Thank you for allowing me to participate in the pt's care. Will continue to follow. Please contact the medical team if any questions or concerns.
[2025-07-16 22:44] LABS: Appearance Urine Clear; Glucose Urine UA >=1000 mg/dL (Negative); PH 5.0 (5.0-9.0); Specific Gravity - Urine 1.015 (1.005-1.025); UMIC TRIGGER UACC YES
[2025-07-17 06:49] LABS: Glucose, Whole Blood 214 mg/dL (60-115)
[2025-07-17 08:00] VITALS: BP 115/55; PULSE 83; RESP 18; TEMP 36.3; O2SAT 95
[2025-07-17] MEDS: Ferrous Sulfate 324 MG TABLET.DR PO ×3 (08:19→20:08)
[2025-07-17] MEDS: Metoprolol Succinate ER 50 MG TAB.ER.24H PO (08:19)
[2025-07-17 09:08] LABS: Anion Gap 15 (12-20); Blood Urea Nitrogen 62 mg/dL (9-16); Calcium 9.2 mg/dL (8.4-10.2); Carbon Dioxide 27 mmol/L (22-29); Chloride 96 mmol/L (96-108); Creatinine Clr Calc Pharmacy 35.0; Estimated Glomerular Filt Rate 33; Potassium 5.0 mmol/L (3.3-5.1); Sodium 133 mmol/L (135-145)
--- NOTE | 2025-07-17 11:33 | PM.EVENT ---
Event Note Date of Service: 07/17/25 Event Note: Creat worse today, 1.99. Hold lasix and losartan. 1 liter of NS@100 ordered, RN to place peripheral IV. Likely from dehydration although had some episodes of hypotension yesterday which could lead to hypoperfusion. Will recheck BMP this evening. Time Spent With Patient Time: Total time managing care of this patient today ____ minutes.
[2025-07-17 11:43] LABS: Glucose, Whole Blood 239 mg/dL (60-115)
--- NOTE | 2025-07-17 12:02 | PC.NURSE ---
Addendum entered by Hannah Hawkins RN 07/17/25 12:12: Patient's daughter Tahmina updated and asked to bring in patient's glasses. Original Note: Per Yessica Maharaj MANAGER SCHEDULING, CT of the chest was unremarkable and no new orders at this time. Miralax daily ordered for constipation seen on images. Grand daughter Tahmina updated.
--- NOTE | 2025-07-17 12:33 | P.PNPSI_ITS ---
Subjective Subjective Date of Service: 07/17/25 Reason For Visit: Depression Subjective Notes: Conditional Voluntary Interim History: He is seen and discussed in rounds today. Records and plans were reviewed. He has been more cooperative but continues to be worked up for his physical symptoms. Today he was seen again by the hospitalist and CAT scan and x-rays of his chest were ordered. Eating and sleeping adequately. Finger wound is being dressed daily. Continues with antibiotics. Review of Systems Review of Systems Yes all other systems are reviewed and are negative Mental Status Exam Mental Status Exam Narrative: In today's visit he is alert, oriented and pleasant. Normal speech. Moderate eye contact. Appropriate affect. Moderate anxiety present. Cognitively is mostly intact. No SI. Does have auditory hallucinations, sometimes command in nature. Diagnostics Vital Signs (24Hr): Vital Signs - 24 hr 07/16/25 20:00 07/17/25 08:00 Temperature 97.6 F 97.3 F Pulse Rate 70 83 Respiratory Rate 16 18 Blood Pressure 132/60 115/55 L Pulse Oximetry 97 95 Oxygen Delivery Method Room Air Room Air BMI result Body Mass Index 38.2 Labs 07/17/25 08:00 Labs: Laboratory Results - last 48 hr 07/15/25 07/15/25 07/16/25 16:22 20:34 06:45 Sodium Potassium Chloride Carbon Dioxide Anion Gap BUN Creatinine Estim Creat Clear Calc Estimated GFR POC Glucose 218 H 218 H 165 H Random Glucose Calcium Total Bilirubin AST ALT Alkaline Phosphatase Total Protein Albumin Urine Color Urine Appearance Urine pH Ur Specific [place] Urine Protein Urine Glucose (UA) Urine Ketones Urine Blood Urine Nitrite Ur Leukocyte Esterase Urine RBC Urine WBC Ur Squamous Epith Cells Urine Bacteria Hyaline Casts 07/16/25 07/16/25 07/16/25 11:27 12:46 16:11 Sodium 132 L Potassium 4.7 Chloride 98 Carbon Dioxide 27 Anion Gap 12 BUN 53 H Creatinine 1.59 H Estim Creat Clear Calc 43.9 Estimated GFR 43 POC Glucose 220 H 240 H Random Glucose 251 H Calcium 9.3 Total Bilirubin 0.2 AST 19 ALT 14 Alkaline Phosphatase 82 Total Protein 8.1 H Albumin 3.9 Urine Color Urine Appearance Urine pH Ur Specific [place] Urine Protein Urine Glucose (UA) Urine Ketones Urine Blood Urine Nitrite Ur Leukocyte Esterase Urine RBC Urine WBC Ur Squamous Epith Cells Urine Bacteria Hyaline Casts 07/16/25 07/16/25 07/17/25 20:29 22:00 06:44 Sodium Potassium Chloride Carbon Dioxide Anion Gap BUN Creatinine Estim Creat Clear Calc Estimated GFR POC Glucose 223 H 214 H Random Glucose Calcium Total Bilirubin AST ALT Alkaline Phosphatase Total Protein Albumin Urine Color Yellow Urine Appearance Clear Urine pH 5.0 Ur Specific [place] 1.015 Urine Protein Negative Urine Glucose (UA) >=1000 H Urine Ketones Negative Urine Blood Negative Urine Nitrite Negative Ur Leukocyte Esterase Negative Urine RBC 0-2 Urine WBC 0-5 Ur Squamous Epith Cells 0-2 Urine Bacteria None Seen Hyaline Casts 0-2 07/17/25 07/17/25 08:00 11:39 Sodium 133 L Potassium 5.0 Chloride 96 Carbon Dioxide 27 Anion Gap 15 BUN 62 H Creatinine 1.99 H Estim Creat Clear Calc 35.0 Estimated GFR 33 POC Glucose 239 H Random Glucose 274 H Calcium 9.2 Total Bilirubin AST ALT Alkaline Phosphatase Total Protein Albumin Urine Color Urine Appearance Urine pH Ur Specific [place] Urine Protein Urine Glucose (UA) Urine Ketones Urine Blood Urine Nitrite Ur Leukocyte Esterase Urine RBC Urine WBC Ur Squamous Epith Cells Urine Bacteria Hyaline Casts Imaging Radiology Impressions: ITS Impressions Chest X-Ray 07/15/25 15:24 IMPRESSION: Clear lungs. Electronically signed by: Brice Bunch MD 07/15/2025 03:40 PM EDT RP Medications Medications Current Medications Acetaminophen (Acetaminophen 325 Mg Tablet) 650 mg PO Q6H PRN PRN Reason: Headache/Pain, Scale 1-10 Last Admin: 07/17/25 06:47 Dose: 650 mg Al Hydroxide/Mg Hydroxide (Magnesium Hydrox/Alum Hydrox 30 Ml Oral.Susp) 30 ml PO Q6H PRN PRN Reason: Heartburn/Nausea Albuterol Sulfate (Albuterol Sulfate (0.083%) 2.5 Mg/3 Ml Vial.Neb) 2.5 mg INHALE Q4H PRN PRN Reason: Shortness of Breath/Wheezing Aspirin (Aspirin 81 Mg Tab.Chew) 81 mg PO DAILY [facility] Last Admin: 07/17/25 08:20 Dose: 81 mg Atorvastatin Calcium (Atorvastatin Calcium 40 Mg Tablet) 40 mg PO BEDTIME [facility] Last Admin: 07/16/25 21:13 Dose: 40 mg Clopidogrel Bisulfate (Clopidogrel Bisulfate 75 Mg Tablet) 75 mg PO DAILY [facility] Last Admin: 07/17/25 08:19 Dose: 75 mg Cyanocobalamin (Cyanocobalamin (Vitamin B-12) 1,000 Mcg Tablet) 1,000 mcg PO DAILY [facility] Last Admin: 07/17/25 08:19 Dose: 1,000 mcg Doxycycline Monohydrate (Doxycycline Monohydrate 100 Mg Capsule) 100 mg PO BID [facility] Last Admin: 07/17/25 08:21 Dose: 100 mg Empagliflozin (Empagliflozin 10 Mg Tablet) 10 mg PO DAILY [facility] Last Admin: 07/17/25 08:20 Dose: 10 mg Ferrous Sulfate (Ferrous Sulfate 324 Mg Tablet.Dr) 324 mg PO TID [facility] Last Admin: 07/17/25 08:19 Dose: 324 mg Fluticasone Propionate (Fluticasone Propionate Nasal 16 Gm [place]) 1 spray NOSTRIL-B DAILY [facility] Last Admin: 07/17/25 08:16 Dose: 1 spray Furosemide (Furosemide 40 Mg Tablet) 40 mg PO BID@0900,1700 [facility] On Hold: 07/17/25 07:06 Last Admin: 07/16/25 16:30 Dose: 40 mg Gabapentin (Gabapentin 600 Mg Tablet) 600 mg PO TID [facility] Last Admin: 07/17/25 08:19 Dose: 600 mg Hydroxyzine HCl (Hydroxyzine Hcl 25 Mg Tablet) 25 mg PO Q6H PRN PRN Reason: mild anxiety Sodium Chloride (Ns) 1,000 mls @ 100 mls/hr IVCONT .Q10H [facility] Stop: 07/17/25 19:44 Last Admin: 07/17/25 10:40 Dose: 100 mls/hr Insulin Glargine (Insulin Glargine,Hum.Rec.Anlog 100 Unit/Ml 10 Ml Vial) 50 unit SUBCUT BEDTIME [facility] Last Admin: 07/16/25 21:13 Dose: 50 unit Insulin Human Lispro (Insulin Lispro 100 Unit/Ml 3 Ml Vial) 0 unit SUBCUT QIDACHS [facility]; Protocol Last Admin: 07/17/25 11:48 Dose: 4 unit Lorazepam (Lorazepam 0.5 Mg Tablet) 0.5 mg PO BID PRN PRN Reason: Anxiety Losartan Potassium (Losartan Potassium 25 Mg Tablet) 25 mg PO DAILY [facility] On Hold: 07/17/25 09:33 Last Admin: 07/17/25 08:19 Dose: 25 mg Magnesium Hydroxide (Milk Of Magnesia 30 Ml Oral.Susp) 30 ml PO DAILY PRN PRN Reason: Constipation Melatonin (Melatonin 3 Mg Tablet) 6 mg PO BEDTIME [facility] Last Admin: 07/16/25 21:14 Dose: 6 mg Metoprolol Succinate (Metoprolol Succinate Er 50 Mg Tab.Er.24h) 50 mg PO DAILY [facility] Last Admin: 07/17/25 08:19 Dose: 50 mg Montelukast Sodium (Montelukast Sodium 10 Mg Tablet) 10 mg PO BEDTIME [facility] Last Admin: 07/16/25 21:13 Dose: 10 mg Pantoprazole Sodium (Pantoprazole Sodium 20 Mg Tablet.Dr) 40 mg PO DAILY [facility] Last Admin: 07/17/25 08:18 Dose: 40 mg Polyethylene Glycol (Polyethylene Glycol 3350 17 Gm Powd.Pack) 17 gm PO DAILY [facility] Last Admin: 07/17/25 12:15 Dose: 17 gm Risperidone (Risperidone 1 Mg Tablet) 1 mg PO BID [facility] Last Admin: 07/17/25 08:20 Dose: 1 mg Tamsulosin HCl (Tamsulosin Hcl 0.4 Mg Capsule) 0.4 mg PO BEDTIME [facility] Last Admin: 07/16/25 21:14 Dose: 0.4 mg Thiamine HCl (Thiamine Hcl 100 Mg Tablet) 100 mg PO DAILY [facility] Last Admin: 07/17/25 08:20 Dose: 100 mg Tizanidine HCl (Tizanidine Hcl 4 Mg Tablet) 2 mg PO BEDTIME [facility] Last Admin: 07/16/25 21:14 Dose: 2 mg Trazodone HCl (Trazodone Hcl 50 Mg Tablet) 50 mg PO BEDTIME MRX1 PRN PRN Reason: Insomnia Vitamin D (Cholecalciferol (Vitamin D3) 25 Mcg Tablet) 50 mcg PO DAILY [facility] Last Admin: 07/17/25 08:18 Dose: 50 mcg Allergies Allergies Allergy/AdvReac Type Severity Reaction Status Date / Time Penicillins (PCN) AdvReac Unknown Verified 07/14/25 14:00 Assessment & Plan Assessment & Plan (1) Acute kidney injury superimposed on stage 3b chronic kidney disease: Status: Acute Code(s): N17.9 - Acute kidney failure, unspecified; N18.32 - Chronic kidney disease, stage 3b Plan 75-year-old [place]ammarinese speaking male with a past medical history of coronary artery disease, history of stroke, type 2 diabetes with insulin-dependent, hypertension, BPH, congestive heart failure and CKD 3B admitted to [facility], consult placed for worsening creatinine. MAMADOU on CKD 3B, improving 1.47 to 1.59, baseline 1.20 - given that pt is improving I do not feel that transfer to medical floor for IVF is needed at this time. would not reccomend IVF due to CHF and improving cr. - encourage PO fluids - bladder scan - UA/cx - bilateral renal US - nephrology consult - CXR due to chest congestion, likely chronic, does not appear to have fluid overload and vitals are stable - hold lasix due to MAMADOU, will resume if CXR with fluid overload Thank you for allowing me to participate in the pt's care. Will continue to follow. Please contact the medical team if any questions or 07/17: Continue current regimen and plansconcerns. Reason for continued inpatient stay Substantial Risk for: med/psych decompensation Time Spent With Patient Time: Total time managing care of this patient today ____ minutes.
--- NOTE | 2025-07-17 13:08 | PC.NURSE ---
Patient has been on Doxycycline for complaints of upper respiratory and nasal congestion since admission.
[2025-07-17 16:19] LABS: Glucose, Whole Blood 270 mg/dL (60-115)
[2025-07-17 18:39] LABS: Creatinine Clr Calc Pharmacy 38.7; Estimated Glomerular Filt Rate 37
[2025-07-17 20:00] VITALS: BP 134/63; PULSE 63; RESP 18; TEMP 36.2; O2SAT 99
[2025-07-17] MEDS: Insulin Glargine,Hum.rec.anlog 100 UNIT/ML 10 ML VIAL 50 UNIT SUBCUT (20:08)
[2025-07-17 21:07] LABS: Glucose, Whole Blood 215 mg/dL (60-115)
[2025-07-18] MEDS: 0.9 % Sodium Chloride Flush 3 ML SYRINGE IVFLUSH ×4 (00:51→23:29)
[2025-07-18 06:38] LABS: Glucose, Whole Blood 197 mg/dL (60-115)
[2025-07-18 08:00] VITALS: BP 115/59; PULSE 70; RESP 18; TEMP 36.7; O2SAT 92
[2025-07-18 08:26] VITALS: BP 115/59; PULSE 70
[2025-07-18] MEDS: Metoprolol Succinate ER 50 MG TAB.ER.24H PO (08:26)
[2025-07-18] MEDS: Ferrous Sulfate 324 MG TABLET.DR PO ×3 (08:27→21:05)
--- NOTE | 2025-07-18 10:20 | HO.PSYCHPN ---
Subjective Subjective Date of Service: 07/18/25 Reason For Visit: Depression Subjective Notes: Conditional Voluntary Interim History: He is seen and discussed in rounds today. Records and plans were reviewed. He has been complaining of some leg and hip pain but that may have to do with the fact that he is in a wheelchair at most times. He is being followed by the hospitalist at yesterday's creatinine was worse at 1.99 and his Lasix and losartan were held. Labs pending today. No behavioral issues. No changes were made Review of Systems Review of Systems Leg and hip discomfort/pain Yes all other systems are reviewed and are negative Mental Status Exam Mental Status Exam Narrative: In today's visit he is alert, oriented and pleasant. Normal speech. Moderate eye contact. Appropriate affect. Moderate anxiety present. Cognitively is mostly intact. No SI. Does have auditory hallucinations, sometimes command in nature. Diagnostics Vital Signs (24Hr): Vital Signs - 24 hr 07/17/25 20:00 07/18/25 08:26 Temperature 97.2 F Pulse Rate 63 70 Respiratory Rate 18 Blood Pressure 134/63 115/59 L Pulse Oximetry 99 Oxygen Delivery Method Room Air BMI result Body Mass Index 38.2 Labs 07/17/25 18:17 Labs: Laboratory Results - last 48 hr 07/16/25 07/16/25 07/16/25 11:27 12:46 16:11 Sodium 132 L Potassium 4.7 Chloride 98 Carbon Dioxide 27 Anion Gap 12 BUN 53 H Creatinine 1.59 H Estim Creat Clear Calc 43.9 Estimated GFR 43 POC Glucose 220 H 240 H Random Glucose 251 H Calcium 9.3 Total Bilirubin 0.2 AST 19 ALT 14 Alkaline Phosphatase 82 Total Protein 8.1 H Albumin 3.9 Urine Color Urine Appearance Urine pH Ur Specific [place] Urine Protein Urine Glucose (UA) Urine Ketones Urine Blood Urine Nitrite Ur Leukocyte Esterase Urine RBC Urine WBC Ur Squamous Epith Cells Urine Bacteria Hyaline Casts 07/16/25 07/16/25 07/17/25 20:29 22:00 06:44 Sodium Potassium Chloride Carbon Dioxide Anion Gap BUN Creatinine Estim Creat Clear Calc Estimated GFR POC Glucose 223 H 214 H Random Glucose Calcium Total Bilirubin AST ALT Alkaline Phosphatase Total Protein Albumin Urine Color Yellow Urine Appearance Clear Urine pH 5.0 Ur Specific [place] 1.015 Urine Protein Negative Urine Glucose (UA) >=1000 H Urine Ketones Negative Urine Blood Negative Urine Nitrite Negative Ur Leukocyte Esterase Negative Urine RBC 0-2 Urine WBC 0-5 Ur Squamous Epith Cells 0-2 Urine Bacteria None Seen Hyaline Casts 0-2 07/17/25 07/17/25 07/17/25 08:00 11:39 16:16 Sodium 133 L Potassium 5.0 Chloride 96 Carbon Dioxide 27 Anion Gap 15 BUN 62 H Creatinine 1.99 H Estim Creat Clear Calc 35.0 Estimated GFR 33 POC Glucose 239 H 270 H Random Glucose 274 H Calcium 9.2 Total Bilirubin AST ALT Alkaline Phosphatase Total Protein Albumin Urine Color Urine Appearance Urine pH Ur Specific [place] Urine Protein Urine Glucose (UA) Urine Ketones Urine Blood Urine Nitrite Ur Leukocyte Esterase Urine RBC Urine WBC Ur Squamous Epith Cells Urine Bacteria Hyaline Casts 07/17/25 07/17/25 07/18/25 18:17 19:51 06:26 Sodium Potassium Chloride Carbon Dioxide Anion Gap BUN Creatinine 1.80 H Estim Creat Clear Calc 38.7 Estimated GFR 37 POC Glucose 215 H 197 H Random Glucose Calcium Total Bilirubin AST ALT Alkaline Phosphatase Total Protein Albumin Urine Color Urine Appearance Urine pH Ur Specific [place] Urine Protein Urine Glucose (UA) Urine Ketones Urine Blood Urine Nitrite Ur Leukocyte Esterase Urine RBC Urine WBC Ur Squamous Epith Cells Urine Bacteria Hyaline Casts Imaging Radiology Impressions: ITS Impressions Chest X-Ray 07/15/25 15:24 IMPRESSION: Clear lungs. Electronically signed by: Brice Bunch MD 07/15/2025 03:40 PM EDT Medications Medications Current Medications Acetaminophen (Acetaminophen 325 Mg Tablet) 650 mg PO Q6H PRN PRN Reason: Headache/Pain, Scale 1-10 Last Admin: 07/18/25 04:48 Dose: 650 mg Al Hydroxide/Mg Hydroxide (Magnesium Hydrox/Alum Hydrox 30 Ml Oral.Susp) 30 ml PO Q6H PRN PRN Reason: Heartburn/Nausea Albuterol Sulfate (Albuterol Sulfate (0.083%) 2.5 Mg/3 Ml Vial.Neb) 2.5 mg INHALE Q4H PRN PRN Reason: Shortness of Breath/Wheezing Aspirin (Aspirin 81 Mg Tab.Chew) 81 mg PO DAILY [facility] Last Admin: 07/18/25 08:27 Dose: 81 mg Atorvastatin Calcium (Atorvastatin Calcium 40 Mg Tablet) 40 mg PO BEDTIME [facility] Last Admin: 07/17/25 20:07 Dose: 40 mg Clopidogrel Bisulfate (Clopidogrel Bisulfate 75 Mg Tablet) 75 mg PO DAILY [facility] Last Admin: 07/18/25 08:26 Dose: 75 mg Cyanocobalamin (Cyanocobalamin (Vitamin B-12) 1,000 Mcg Tablet) 1,000 mcg PO DAILY [facility] Last Admin: 07/18/25 08:27 Dose: 1,000 mcg Doxycycline Monohydrate (Doxycycline Monohydrate 100 Mg Capsule) 100 mg PO BID [facility] Last Admin: 07/18/25 08:26 Dose: 100 mg Empagliflozin (Empagliflozin 10 Mg Tablet) 10 mg PO DAILY [facility] Last Admin: 07/18/25 08:26 Dose: 10 mg Ferrous Sulfate (Ferrous Sulfate 324 Mg Tablet.Dr) 324 mg PO TID [facility] Last Admin: 07/18/25 08:27 Dose: 324 mg Fluticasone Propionate (Fluticasone Propionate Nasal 16 Gm [place]) 1 spray NOSTRIL-B DAILY [facility] Last Admin: 07/18/25 08:25 Dose: 1 spray Furosemide (Furosemide 40 Mg Tablet) 40 mg PO BID@0900,1700 [facility] On Hold: 07/17/25 07:06 Last Admin: 07/16/25 16:30 Dose: 40 mg Gabapentin (Gabapentin 600 Mg Tablet) 600 mg PO TID [facility] Last Admin: 07/18/25 08:26 Dose: 600 mg Hydroxyzine HCl (Hydroxyzine Hcl 25 Mg Tablet) 25 mg PO Q6H PRN PRN Reason: mild anxiety Insulin Glargine (Insulin Glargine,Hum.Rec.Anlog 100 Unit/Ml 10 Ml Vial) 50 unit SUBCUT BEDTIME [facility] Last Admin: 07/17/25 20:08 Dose: 50 unit Insulin Human Lispro (Insulin Lispro 100 Unit/Ml 3 Ml Vial) 0 unit SUBCUT QIDACHS [facility]; Protocol Last Admin: 07/18/25 08:00 Dose: 2 unit Lorazepam (Lorazepam 0.5 Mg Tablet) 0.5 mg PO BID PRN PRN Reason: Anxiety Last Admin: 07/18/25 04:50 Dose: 0.5 mg Losartan Potassium (Losartan Potassium 25 Mg Tablet) 25 mg PO DAILY [facility] On Hold: 07/17/25 09:33 Last Admin: 07/17/25 08:19 Dose: 25 mg Magnesium Hydroxide (Milk Of Magnesia 30 Ml Oral.Susp) 30 ml PO DAILY PRN PRN Reason: Constipation Melatonin (Melatonin 3 Mg Tablet) 6 mg PO BEDTIME [facility] Last Admin: 07/17/25 20:07 Dose: 6 mg Metoprolol Succinate (Metoprolol Succinate Er 50 Mg Tab.Er.24h) 50 mg PO DAILY [facility] Last Admin: 07/18/25 08:26 Dose: 50 mg Montelukast Sodium (Montelukast Sodium 10 Mg Tablet) 10 mg PO BEDTIME [facility] Last Admin: 07/17/25 20:08 Dose: 10 mg Pantoprazole Sodium (Pantoprazole Sodium 20 Mg Tablet.Dr) 40 mg PO DAILY [facility] Last Admin: 07/18/25 08:27 Dose: 40 mg Polyethylene Glycol (Polyethylene Glycol 3350 17 Gm Powd.Pack) 17 gm PO DAILY [facility] Last Admin: 07/18/25 08:30 Dose: Not Given Risperidone (Risperidone 1 Mg Tablet) 1 mg PO BID [facility] Last Admin: 07/18/25 08:27 Dose: 1 mg Sodium Chloride (0.9 % Sodium Chloride Flush 3 Ml Syringe) 3 ml IVFLUSH QSHIFT [facility] Last Admin: 07/18/25 00:51 Dose: 3 ml Tamsulosin HCl (Tamsulosin Hcl 0.4 Mg Capsule) 0.4 mg PO BEDTIME [facility] Last Admin: 07/17/25 20:08 Dose: 0.4 mg Thiamine HCl (Thiamine Hcl 100 Mg Tablet) 100 mg PO DAILY [facility] Last Admin: 07/18/25 08:26 Dose: 100 mg Tizanidine HCl (Tizanidine Hcl 4 Mg Tablet) 2 mg PO BEDTIME [facility] Last Admin: 07/17/25 20:07 Dose: 2 mg Trazodone HCl (Trazodone Hcl 50 Mg Tablet) 50 mg PO BEDTIME MRX1 PRN PRN Reason: Insomnia Vitamin D (Cholecalciferol (Vitamin D3) 25 Mcg Tablet) 50 mcg PO DAILY [facility] Last Admin: 07/18/25 08:26 Dose: 50 mcg Allergies Allergies Allergy/AdvReac Type Severity Reaction Status Date / Time Penicillins (PCN) AdvReac Unknown Verified 07/14/25 14:00 Assessment & Plan Assessment & Plan (1) MDD (major depressive disorder), recurrent, severe, with psychosis: Status: Acute Code(s): F33.3 - Major depressive disorder, recurrent, severe with psychotic symptoms Assessment and Plan: r/o schizophrenia. Plan Mr. Eden is a 75 year-old male who was initially brought to [facility] via EMS [place] [address] [place] police [place] the park inflicting laceration on left hand. No stitches required. He continued to self harm while in the ED. He reports he is hearing voices (reports male voice saying I want to see blood repeatedly), which then led to him acting on the voices thinking it may quiet them down. Although he endorses depressed mood in context of not having stable place to live and passive SI, he reports he does not want to but can't help if voices are ongoing. He reports he is not hearing voices now. We discussed risks, benefits and alternative treatment options. He agreed to start risperidone 1mg po BID. PLAN 1. admit to S1, CV, 5 minutes check. 2. start risperidone 1mg po BID. ativan prn as needed for anxiety 3. obtain collateral information 4. aftercare planning 07/18: Continue current regimen and plans. Reason for continued inpatient stay Substantial Risk for: med/psych decompensation Time Spent With Patient Time: Total time managing care of this patient today ____ minutes.
[2025-07-18 10:33] LABS: Anion Gap 13 (12-20); Blood Urea Nitrogen 59 mg/dL (9-16); Blood Urea Nitrogen 60 mg/dL (9-16); Calcium 9.0 mg/dL (8.4-10.2); Calcium 9.1 mg/dL (8.4-10.2); Carbon Dioxide 26 mmol/L (22-29); Chloride 103 mmol/L (96-108); Creatinine Clr Calc Pharmacy 43.6; Creatinine Clr Calc Pharmacy 43.9; Estimated Glomerular Filt Rate 42; Estimated Glomerular Filt Rate 43; Potassium 5.2 mmol/L (3.3-5.1); Potassium 5.3 mmol/L (3.3-5.1); Sodium 137 mmol/L (135-145)
--- NOTE | 2025-07-18 11:01 | PM.EVENT ---
Event Note Date of Service: 07/18/25 Event Note: Creatinine improved today after 1 L of IV fluids. Potassium noted to be mildly elevated 5.3, give Lokelma x1. Recheck BMP tomorrow Time Spent With Patient Time: Total time managing care of this patient today ____ minutes.
[2025-07-18 11:34] LABS: Glucose, Whole Blood 194 mg/dL (60-115)
[2025-07-18 16:27] LABS: Glucose, Whole Blood 270 mg/dL (60-115)
[2025-07-18 19:58] LABS: Glucose, Whole Blood 252 mg/dL (60-115)
[2025-07-18 20:00] VITALS: BP 142/65; PULSE 60; RESP 16; TEMP 36.6; O2SAT 97
[2025-07-18] MEDS: Insulin Glargine,Hum.rec.anlog 100 UNIT/ML 10 ML VIAL 50 UNIT SUBCUT (21:04)
[2025-07-18] MEDS: Albuterol Sulfate (0.083%) 2.5 MG/3 ML VIAL.NEB INHALE (21:12)
[2025-07-19 06:55] LABS: Glucose, Whole Blood 162 mg/dL (60-115)
[2025-07-19 07:44] VITALS: BP 107/53; PULSE 84; RESP 16; TEMP 36.4; O2SAT 93
[2025-07-19] MEDS: Ferrous Sulfate 324 MG TABLET.DR PO ×2 (07:47→21:15)
[2025-07-19] MEDS: Metoprolol Succinate ER 50 MG TAB.ER.24H PO (07:49)
[2025-07-19] MEDS: 0.9 % Sodium Chloride Flush 3 ML SYRINGE IVFLUSH ×2 (08:21→17:39)
--- NOTE | 2025-07-19 08:38 | P.PNPSI_ITS ---
Subjective Subjective Date of Service: 07/19/25 Reason For Visit: Depression Subjective Notes: Conditional Voluntary Interim History: Pt slept through the night. Pt reports excruciating pain on left hip- hospitalist informed and following. He reports he is not hearing voices as much. He also denies SI/HI. No side effects with medications. Medication Compliance: Yes Review of Systems Review of Systems Leg and hip discomfort/pain Yes all other systems are reviewed and are negative Diagnostics Vital Signs (24Hr): Vital Signs - 24 hr 07/18/25 20:00 07/19/25 07:44 Temperature 98 F 97.5 F Pulse Rate 60 84 Respiratory Rate 16 16 Blood Pressure 142/65 H 107/53 L Pulse Oximetry 97 93 Oxygen Delivery Method Room Air Room Air BMI result Body Mass Index 38.2 Labs 07/19/25 07:11 Labs: Laboratory Results - last 48 hr 07/17/25 07/17/25 07/17/25 08:00 11:39 16:16 Sodium 133 L Potassium 5.0 Chloride 96 Carbon Dioxide 27 Anion Gap 15 BUN 62 H Creatinine 1.99 H Estim Creat Clear Calc 35.0 Estimated GFR 33 POC Glucose 239 H 270 H Random Glucose 274 H Calcium 9.2 07/17/25 07/17/25 07/18/25 18:17 19:51 06:26 Sodium Potassium Chloride Carbon Dioxide Anion Gap BUN Creatinine 1.80 H Estim Creat Clear Calc 38.7 Estimated GFR 37 POC Glucose 215 H 197 H Random Glucose Calcium 07/18/25 07/18/25 07/18/25 10:14 10:14 10:14 Sodium 137 137 Potassium 5.2 H 5.3 H Chloride 103 Carbon Dioxide Anion Gap BUN Creatinine Estim Creat Clear Calc Estimated GFR POC Glucose Random Glucose Calcium 07/18/25 07/18/25 07/18/25 10:14 10:14 10:14 Sodium Potassium Chloride 103 Carbon Dioxide 26 26 Anion Gap 13 13 BUN 59 H Creatinine Estim Creat Clear Calc Estimated GFR POC Glucose Random Glucose Calcium 07/18/25 07/18/25 07/18/25 10:14 10:14 10:14 Sodium Potassium Chloride Carbon Dioxide Anion Gap BUN 60 H Creatinine 1.60 H 1.59 H Estim Creat Clear Calc 43.6 43.9 Estimated GFR 42 POC Glucose Random Glucose Calcium 07/18/25 07/18/25 07/18/25 10:14 10:14 10:14 Sodium Potassium Chloride Carbon Dioxide Anion Gap BUN Creatinine Estim Creat Clear Calc Estimated GFR 43 POC Glucose Random Glucose 259 H 256 H Calcium 9.0 9.1 07/18/25 07/18/25 07/18/25 11:29 16:22 19:44 Sodium Potassium Chloride Carbon Dioxide Anion Gap BUN Creatinine Estim Creat Clear Calc Estimated GFR POC Glucose 194 H 270 H 252 H Random Glucose Calcium 07/19/25 06:37 Sodium Potassium Chloride Carbon Dioxide Anion Gap BUN Creatinine Estim Creat Clear Calc Estimated GFR POC Glucose 162 H Random Glucose Calcium Imaging Radiology Impressions: ITS Impressions Chest X-Ray 07/15/25 15:24 IMPRESSION: Clear lungs. Electronically signed by: Brice Bunch MD 07/15/2025 03:40 PM EDT RP Medications Medications Current Medications Acetaminophen (Acetaminophen 325 Mg Tablet) 650 mg PO Q6H PRN PRN Reason: Headache/Pain, Scale 1-10 Last Admin: 07/19/25 07:48 Dose: 650 mg Al Hydroxide/Mg Hydroxide (Magnesium Hydrox/Alum Hydrox 30 Ml Oral.Susp) 30 ml PO Q6H PRN PRN Reason: Heartburn/Nausea Albuterol Sulfate (Albuterol Sulfate (0.083%) 2.5 Mg/3 Ml Vial.Neb) 2.5 mg INHALE Q4H PRN PRN Reason: Shortness of Breath/Wheezing Last Admin: 07/18/25 21:12 Dose: 2.5 mg Aspirin (Aspirin 81 Mg Tab.Chew) 81 mg PO DAILY [facility] Last Admin: 07/19/25 07:47 Dose: 81 mg Atorvastatin Calcium (Atorvastatin Calcium 40 Mg Tablet) 40 mg PO BEDTIME [facility] Last Admin: 07/18/25 21:05 Dose: 40 mg Clopidogrel Bisulfate (Clopidogrel Bisulfate 75 Mg Tablet) 75 mg PO DAILY [facility] Last Admin: 07/19/25 07:49 Dose: 75 mg Cyanocobalamin (Cyanocobalamin (Vitamin B-12) 1,000 Mcg Tablet) 1,000 mcg PO DAILY [facility] Last Admin: 07/19/25 07:47 Dose: 1,000 mcg Doxycycline Monohydrate (Doxycycline Monohydrate 100 Mg Capsule) 100 mg PO BID [facility] Last Admin: 07/19/25 07:48 Dose: 100 mg Empagliflozin (Empagliflozin 10 Mg Tablet) 10 mg PO DAILY [facility] Last Admin: 07/19/25 07:49 Dose: 10 mg Ferrous Sulfate (Ferrous Sulfate 324 Mg Tablet.) 324 mg PO TID [facility] Last Admin: 07/19/25 07:47 Dose: 324 mg Fluticasone Propionate (Fluticasone Propionate Nasal 16 Gm [place]) 1 spray NOSTRIL-B DAILY [facility] Last Admin: 07/19/25 07:53 Dose: 1 spray Furosemide (Furosemide 40 Mg Tablet) 40 mg PO BID@0900,1700 [facility] On Hold: 07/17/25 07:06 Last Admin: 07/16/25 16:30 Dose: 40 mg Gabapentin (Gabapentin 600 Mg Tablet) 600 mg PO TID [facility] Last Admin: 07/19/25 07:49 Dose: 600 mg Hydroxyzine HCl (Hydroxyzine Hcl 25 Mg Tablet) 25 mg PO Q6H PRN PRN Reason: mild anxiety Insulin Glargine (Insulin Glargine,Hum.Rec.Anlog 100 Unit/Ml 10 Ml Vial) 50 unit SUBCUT BEDTIME [facility] Last Admin: 07/18/25 21:04 Dose: 50 unit Insulin Human Lispro (Insulin Lispro 100 Unit/Ml 3 Ml Vial) 0 unit SUBCUT QIDACHS [facility]; Protocol Last Admin: 07/19/25 07:46 Dose: 2 unit Lorazepam (Lorazepam 0.5 Mg Tablet) 0.5 mg PO BID PRN PRN Reason: Anxiety Last Admin: 07/19/25 07:48 Dose: 0.5 mg Losartan Potassium (Losartan Potassium 25 Mg Tablet) 25 mg PO DAILY [facility] On Hold: 07/17/25 09:33 Last Admin: 07/17/25 08:19 Dose: 25 mg Magnesium Hydroxide (Milk Of Magnesia 30 Ml Oral.Susp) 30 ml PO DAILY PRN PRN Reason: Constipation Melatonin (Melatonin 3 Mg Tablet) 6 mg PO BEDTIME [facility] Last Admin: 07/18/25 21:05 Dose: 6 mg Metoprolol Succinate (Metoprolol Succinate Er 50 Mg Tab.Er.24h) 50 mg PO DAILY [facility] Last Admin: 07/19/25 07:49 Dose: 50 mg Montelukast Sodium (Montelukast Sodium 10 Mg Tablet) 10 mg PO BEDTIME [facility] Last Admin: 07/18/25 21:05 Dose: 10 mg Pantoprazole Sodium (Pantoprazole Sodium 20 Mg Tablet.) 40 mg PO DAILY [facility] Last Admin: 07/19/25 07:47 Dose: 40 mg Polyethylene Glycol (Polyethylene Glycol 3350 17 Gm Powd.Pack) 17 gm PO DAILY [facility] Last Admin: 07/19/25 07:47 Dose: 17 gm Risperidone (Risperidone 1 Mg Tablet) 1 mg PO BID [facility] Last Admin: 07/19/25 07:49 Dose: 1 mg Sodium Chloride (0.9 % Sodium Chloride Flush 3 Ml Syringe) 3 ml IVFLUSH QSHIFT [facility] Last Admin: 07/19/25 08:21 Dose: 3 ml Tamsulosin HCl (Tamsulosin Hcl 0.4 Mg Capsule) 0.4 mg PO BEDTIME [facility] Last Admin: 07/18/25 21:05 Dose: 0.4 mg Thiamine HCl (Thiamine Hcl 100 Mg Tablet) 100 mg PO DAILY [facility] Last Admin: 07/19/25 07:49 Dose: 100 mg Tizanidine HCl (Tizanidine Hcl 4 Mg Tablet) 2 mg PO BEDTIME [facility] Last Admin: 07/18/25 21:04 Dose: 2 mg Trazodone HCl (Trazodone Hcl 50 Mg Tablet) 50 mg PO BEDTIME MRX1 PRN PRN Reason: Insomnia Vitamin D (Cholecalciferol (Vitamin D3) 25 Mcg Tablet) 50 mcg PO DAILY [facility] Last Admin: 07/19/25 07:48 Dose: 50 mcg Allergies Allergies Allergy/AdvReac Type Severity Reaction Status Date / Time Penicillins (PCN) AdvReac Unknown Verified 07/14/25 14:00 Assessment & Plan Assessment & Plan (1) MDD (major depressive disorder), recurrent, severe, with psychosis: Status: Acute Code(s): F33.3 - Major depressive disorder, recurrent, severe with psychotic symptoms Assessment and Plan: r/o schizophrenia. Plan Mr. Eden is a 75 year-old male who was initially brought to [facility] via EMS on [address] by police [place] the [place] inflicting laceration on left hand. No stitches required. He continued to self harm while in the ED. He reports he is hearing voices (reports male voice saying I want to see blood repeatedly), which then led to him acting on the voices thinking it may quiet them down. Although he endorses depressed mood in context of not having stable place to live and passive SI, he reports he does not want to but can't help if voices are ongoing. He reports he is not hearing voices now. We discussed risks, benefits and alternative treatment options. He agreed to start risperidone 1mg po BID. PLAN 07/19 continue tx. consult to hospitalist- left hip pain. no fall or injury. Reason for continued inpatient stay Substantial Risk for: inability to function Time Spent With Patient Time: Total time managing care of this patient today ____ minutes.
[2025-07-19 09:28] LABS: Anion Gap 14 (12-20); Blood Urea Nitrogen 50 mg/dL (9-16); Calcium 8.7 mg/dL (8.4-10.2); Carbon Dioxide 25 mmol/L (22-29); Chloride 107 mmol/L (96-108); Creatinine Clr Calc Pharmacy 53.7; Estimated Glomerular Filt Rate 54; Potassium 4.5 mmol/L (3.3-5.1); Sodium 141 mmol/L (135-145)
--- NOTE | 2025-07-19 11:00 | P.PNIM_ITS ---
Subjective Subjective Date of Service: 07/19/25 Interval History: Patient noted to have cough and rhonchi in lower lobes. Reports that he feels short of breath at his baseline he has asthma. He denies being on any home inhalers. Chest x-ray reveals a right lower lobe pneumonia. Patient is also reporting left hip pain that started over the weekend, also today reporting right hip pain and lower back pain. He denies any injury, denies any recent falls. He reports that he may have slept wrong but he can not confirm this. He had a recent renal ultrasound without any abnormalities. He had a x-ray of the bilateral pelvic in hips which did not reveal any fractures or dislocations. Incidental finding of patchy increased sclerosis of the bones. Review of Systems Denies any shortness of breath, chest pain, palpitations, dizziness, lightheadedness, headaches, dysuria, abdominal pain or discomfort, nausea, vomiting or diarrhea. Denies chills, body aches, muscle aches, fatigue or weight loss. Physical Exam 2 Exam: Exam: CONST: Alert and oriented, in NAD. Well nourished HEENT: Normocephalic, atraumatic, MMM, Eyes clear, Neck supple RESP: Lungs with rhonchi at bases, RRR even and regular. No increased work of breathing, no use of accessory muscles HEART:,RRR, S1, S2. No edema GI:Abdomen Soft NT, ND. + BS times four :Deferred SKIN: Warm dry and intact, no visible lesions or rashes. Followed by wound care for self-inflicted wounds on his hand NEURO:CN II-XII Intact bilaterally, Sensation intact. Speech clear PSYCH: Normal affect Vital Signs: Vital Signs: Last Vital Signs Temp 97.5 F 07/19/25 07:44 Pulse 84 07/19/25 07:44 Resp 16 07/19/25 07:44 BP 107/53 L 07/19/25 07:44 Pulse Ox 93 07/19/25 07:44 O2 Del Method Room Air 07/19/25 07:44 BMI result Body Mass Index 38.2 Objective Data Active Medications Acetaminophen (Acetaminophen 325 Mg Tablet) 650 mg PO Q6H PRN PRN Reason: Headache/Pain, Scale 1-10 Last Admin: 07/19/25 07:48 Dose: 650 mg Documented By: BELLA Al Hydroxide/Mg Hydroxide (Magnesium Hydrox/Alum Hydrox 30 Ml Oral.Susp) 30 ml PO Q6H PRN PRN Reason: Heartburn/Nausea Albuterol Sulfate (Albuterol Sulfate (0.083%) 2.5 Mg/3 Ml Vial.Neb) 2.5 mg INHALE Q4H PRN PRN Reason: Shortness of Breath/Wheezing Last Admin: 07/18/25 21:12 Dose: 2.5 mg Documented By: ITALO Aspirin (Aspirin 81 Mg Tab.Chew) 81 mg PO DAILY [facility] Last Admin: 07/19/25 07:47 Dose: 81 mg Documented By: BELLA Atorvastatin Calcium (Atorvastatin Calcium 40 Mg Tablet) 40 mg PO BEDTIME [facility] Last Admin: 07/18/25 21:05 Dose: 40 mg Documented By: ITALO Clopidogrel Bisulfate (Clopidogrel Bisulfate 75 Mg Tablet) 75 mg PO DAILY [facility] Last Admin: 07/19/25 07:49 Dose: 75 mg Documented By: BELLA Cyanocobalamin (Cyanocobalamin (Vitamin B-12) 1,000 Mcg Tablet) 1,000 mcg PO DAILY [facility] Last Admin: 07/19/25 07:47 Dose: 1,000 mcg Documented By: BELLA Doxycycline Monohydrate (Doxycycline Monohydrate 100 Mg Capsule) 100 mg PO BID [facility] Last Admin: 07/19/25 07:48 Dose: 100 mg Documented By: BELLA Empagliflozin (Empagliflozin 10 Mg Tablet) 10 mg PO DAILY [facility] Last Admin: 07/19/25 07:49 Dose: 10 mg Documented By: BELLA Ferrous Sulfate (Ferrous Sulfate 324 Mg Tablet.) 324 mg PO TID [facility] Last Admin: 07/19/25 07:47 Dose: 324 mg Documented By: BELLA Fluticasone Propionate (Fluticasone Propionate Nasal 16 Gm [place]) 1 spray NOSTRIL-B DAILY [facility] Last Admin: 07/19/25 07:53 Dose: 1 spray Documented By: BELLA Furosemide (Furosemide 40 Mg Tablet) 40 mg PO BID@0900,1700 [facility] On Hold: 07/17/25 07:06 Last Admin: 07/16/25 16:30 Dose: 40 mg Documented By: RUBEN Gabapentin (Gabapentin 600 Mg Tablet) 600 mg PO TID [facility] Last Admin: 07/19/25 07:49 Dose: 600 mg Documented By: BELLA Hydroxyzine HCl (Hydroxyzine Hcl 25 Mg Tablet) 25 mg PO Q6H PRN PRN Reason: mild anxiety Insulin Glargine (Insulin Glargine,Hum.Rec.Anlog 100 Unit/Ml 10 Ml Vial) 50 unit SUBCUT BEDTIME [facility] Last Admin: 07/18/25 21:04 Dose: 50 unit Documented By: ITALO Insulin Human Lispro (Insulin Lispro 100 Unit/Ml 3 Ml Vial) 0 unit SUBCUT QIDACHS [facility]; Protocol Last Admin: 07/19/25 07:46 Dose: 2 unit Documented By: BELLA Lorazepam (Lorazepam 0.5 Mg Tablet) 0.5 mg PO BID PRN PRN Reason: Anxiety Last Admin: 07/19/25 07:48 Dose: 0.5 mg Documented By: BELLA Losartan Potassium (Losartan Potassium 25 Mg Tablet) 25 mg PO DAILY [facility] On Hold: 07/17/25 09:33 Last Admin: 07/17/25 08:19 Dose: 25 mg Documented By: RUBEN Magnesium Hydroxide (Milk Of Magnesia 30 Ml Oral.Susp) 30 ml PO DAILY PRN PRN Reason: Constipation Melatonin (Melatonin 3 Mg Tablet) 6 mg PO BEDTIME [facility] Last Admin: 07/18/25 21:05 Dose: 6 mg Documented By: ITALO Metoprolol Succinate (Metoprolol Succinate Er 50 Mg Tab.Er.24h) 50 mg PO DAILY [facility] Last Admin: 07/19/25 07:49 Dose: 50 mg Documented By: BELLA Montelukast Sodium (Montelukast Sodium 10 Mg Tablet) 10 mg PO BEDTIME [facility] Last Admin: 07/18/25 21:05 Dose: 10 mg Documented By: ITALO Pantoprazole Sodium (Pantoprazole Sodium 20 Mg Tablet.Dr) 40 mg PO DAILY [facility] Last Admin: 07/19/25 07:47 Dose: 40 mg Documented By: BELLA Polyethylene Glycol (Polyethylene Glycol 3350 17 Gm Powd.Pack) 17 gm PO DAILY [facility] Last Admin: 07/19/25 07:47 Dose: 17 gm Documented By: BELLA Risperidone (Risperidone 1 Mg Tablet) 1 mg PO BID [facility] Last Admin: 07/19/25 07:49 Dose: 1 mg Documented By: BELLA Sodium Chloride (0.9 % Sodium Chloride Flush 3 Ml Syringe) 3 ml IVFLUSH QSHIFT [facility] Last Admin: 07/19/25 08:21 Dose: 3 ml Documented By: BELLA Tamsulosin HCl (Tamsulosin Hcl 0.4 Mg Capsule) 0.4 mg PO BEDTIME [facility] Last Admin: 07/18/25 21:05 Dose: 0.4 mg Documented By: ITALO Thiamine HCl (Thiamine Hcl 100 Mg Tablet) 100 mg PO DAILY [facility] Last Admin: 07/19/25 07:49 Dose: 100 mg Documented By: BELLA Tizanidine HCl (Tizanidine Hcl 4 Mg Tablet) 2 mg PO BEDTIME [facility] Last Admin: 07/18/25 21:04 Dose: 2 mg Documented By: ITALO Trazodone HCl (Trazodone Hcl 50 Mg Tablet) 50 mg PO BEDTIME MRX1 PRN PRN Reason: Insomnia Vitamin D (Cholecalciferol (Vitamin D3) 25 Mcg Tablet) 50 mcg PO DAILY [facility] Last Admin: 07/19/25 07:48 Dose: 50 mcg Documented By: BELLA Labs 07/19/25 07:11 Labs: Laboratory Results - last 24 hr 07/18/25 07/18/25 07/18/25 11:29 16:22 19:44 Anion Gap Estim Creat Clear Calc Estimated GFR POC Glucose 194 H 270 H 252 H Random Glucose Calcium 07/19/25 07/19/25 06:37 07:11 Anion Gap 14 Estim Creat Clear Calc 53.7 Estimated GFR 54 POC Glucose 162 H Random Glucose 144 H Calcium 8.7 Assessment and Plan (1) RLL pneumonia: Status: Acute Plan 75-year-old male with past medical history listed below is [facility] for continued care after he presented to the hospital with self- harming behaviors and depression. Depression with self harming behavior Per psych team MAMADOU on CKD 3B, improving 1.47-1.3 today, baseline 1.20 Encourage po fluids Urinalysis negative for infection. Renal US normal Nephrology consult pending Decrease Lasix to 40 in am and 20 mgs in pm. Avoid nephrotoxins. Right lower lobe pneumonia Noted on chest x-ray D/C doxycycline and start Levaquin 750 daily for 5 days due to PCN allergy Updraft nebulizer as needed Patient with a history of asthma, not on any maintenance meds. Will start Spiriva Laceration to dorsum of left hand and fingers/scratch abrasions to calf. Continue local wound care Wound care following. Coronary artery disease/history of stroke/CHF/hypertension Continue aspirin, Plavix, atorvastatin and Jardiance. Continue metoprolol 50 mg daily extended release Decrease losartan to 25 mg daily due to low blood pressure Continue Lasix twice daily at reduced dose in pm. 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 Chronic kidney disease Stage 3 B Baseline 1.2 Avoid nephrotoxins Continue to monitor BPH Continue tamsulosin GERD Continue Protonix Vitamin-D deficiency Continue vitamin-D daily Thank you for allowing me to participate in the care of this patient. Will follow with you, please notify medical provider with any changes in condition or concerns. Quality Stroke Does the patient have a stroke diagnosis?: No VTE Prior VTE?: No VTE Risk Level:: Medical - low VTE Device Contraindication: Treatment Not Indicated VTE Drug Contraindication: N/A - Med Ordered
[2025-07-19 11:15] LABS: Glucose, Whole Blood 172 mg/dL (60-115)
--- NOTE | 2025-07-19 12:06 | HO.WOUND ---
Wound Consult: Follow up 75 yr old male admitted to [facility] on 07/14/25- See progress notes and H&P for detailed history. Wound consult placed for left 4th finger. Patient agreeable to assessment and photo documentation. patient seen previously for linear abrasions/lacerations self inflicted to left hand and left calf. left hand now nearly healed Left 4th finger Etiology: abrasion Measurements: 1cm x 1cm x 0.1cm Wound Bed: moist pink/yellow Drainage / Odor: scant serous, no odor Edges: ? dry attached Krysta wound: ? No Induration, Fluctuance or Warmth noted Pain: none Goals of Treatment: ? moist healing with bacitracin/bandaid - orders already in place Recommendations: Left 4th finger: cleanse with saline, pat dry, apply bacitracin and bandaid per orders Re-consult wound care Nurse for wound deterioration or wound changes.
[2025-07-19 16:21] LABS: Glucose, Whole Blood 214 mg/dL (60-115)
[2025-07-19 20:00] VITALS: BP 128/60; PULSE 71; RESP 16; TEMP 36.6; O2SAT 97
[2025-07-19 20:29] LABS: Glucose, Whole Blood 241 mg/dL (60-115)
[2025-07-19] MEDS: Insulin Glargine,Hum.rec.anlog 100 UNIT/ML 10 ML VIAL 50 UNIT SUBCUT (21:18)
[2025-07-20 06:00] VITALS: BMI 40.8
--- NOTE | 2025-07-20 06:16 | PC.NURSE ---
Pt tearful at 0100 reporting left hip and back pain 10/10. Pt reported severe anxiety and difficulty sleeping. Pt medicated with PRN Trazodone, Tramadol 25mg, and Klonopin, warm compress applied to the left hip. Pt reported positive effect.
[2025-07-20 06:51] LABS: Glucose, Whole Blood 163 mg/dL (60-115)
[2025-07-20 08:00] VITALS: BP 123/59; PULSE 81; RESP 16; TEMP 36.6; O2SAT 92
[2025-07-20] MEDS: Tiotropium Bromide 2.5 mcg 1 PUFF/2.5 MCG MIST.INHAL 2 PUFF INHALE (08:28)
[2025-07-20] MEDS: Metoprolol Succinate ER 50 MG TAB.ER.24H PO (08:29)
[2025-07-20] MEDS: Ferrous Sulfate 324 MG TABLET.DR PO ×2 (08:30→20:49)
--- NOTE | 2025-07-20 09:23 | P.PNPSI_ITS ---
Subjective Subjective Date of Service: 07/20/25 Reason For Visit: Depression Subjective Notes: Conditional Voluntary Interim History: Patient found sitting on his bed with his feet on the floor and arms around his walker. He is irritable and tearful. He reports severe pain to his left hip. He rates his pain as 7/10 on the pain scale. Tramadol was increased to 50 mg Q6H as needed this morning. Patient repeatedly refused pain medication tramadol that his nurse offered at bedside. He eventually took the medication after intervention/education about his pain and treatment modalities by this provider. He denies anxiety or depression. He denies SI/HI/AH/VH. Patient is Slovenian-speaking only. medical staff director utilized. Medication Compliance: Yes Side effects from medications: No Review of Systems Acute medical concerns: Yes Reports severe left hip pain Review of Systems Review of Systems Musc: Reports severe left hip pain Mental Status Exam Mental Status Exam Narrative: Appearance: Casually dressed, adequate hygiene Behavior: Irritable, cooperative throughout the interview. No eye contact, signs of psychomotor agitation, and there are no signs of psychomotor retardation Speech: Normal volume and prosody Thought process: Linear Thought content: On severe left hip pain Mood: Sad Affect: mood-congruent SI:denies HI:denies VH/AH:none Delusions: None Insight/judgment: Impaired insight and judgment Memory/cog: Alert and oriented. grossly intact to conversational testing Diagnostics Vital Signs (24Hr): Vital Signs - 24 hr 07/19/25 20:00 07/20/25 08:00 Temperature 97.9 F 98 F Pulse Rate 71 81 Respiratory Rate 16 16 Blood Pressure 128/60 123/59 L Pulse Oximetry 97 92 Oxygen Delivery Method Room Air Room Air BMI result Body Mass Index 40.8 Labs 07/19/25 07:11 Labs: Laboratory Results - last 48 hr 07/18/25 07/18/25 07/18/25 10:14 10:14 10:14 Sodium 137 137 Potassium 5.2 H 5.3 H Chloride 103 Carbon Dioxide Anion Gap BUN Creatinine Estim Creat Clear Calc Estimated GFR POC Glucose Random Glucose Calcium 07/18/25 07/18/25 07/18/25 10:14 10:14 10:14 Sodium Potassium Chloride 103 Carbon Dioxide 26 26 Anion Gap 13 13 BUN 59 H Creatinine Estim Creat Clear Calc Estimated GFR POC Glucose Random Glucose Calcium 07/18/25 07/18/25 07/18/25 10:14 10:14 10:14 Sodium Potassium Chloride Carbon Dioxide Anion Gap BUN 60 H Creatinine 1.60 H 1.59 H Estim Creat Clear Calc 43.6 43.9 Estimated GFR 42 POC Glucose Random Glucose Calcium 07/18/25 07/18/25 07/18/25 10:14 10:14 10:14 Sodium Potassium Chloride Carbon Dioxide Anion Gap BUN Creatinine Estim Creat Clear Calc Estimated GFR 43 POC Glucose Random Glucose 259 H 256 H Calcium 9.0 9.1 07/18/25 07/18/25 07/18/25 11:29 16:22 19:44 Sodium Potassium Chloride Carbon Dioxide Anion Gap BUN Creatinine Estim Creat Clear Calc Estimated GFR POC Glucose 194 H 270 H 252 H Random Glucose Calcium 07/19/25 07/19/25 07/19/25 06:37 07:11 11:12 Sodium 141 Potassium 4.5 Chloride 107 Carbon Dioxide 25 Anion Gap 14 BUN 50 H Creatinine 1.30 Estim Creat Clear Calc 53.7 Estimated GFR 54 POC Glucose 162 H 172 H Random Glucose 144 H Calcium 8.7 07/19/25 07/19/25 07/20/25 16:18 20:13 06:45 Sodium Potassium Chloride Carbon Dioxide Anion Gap BUN Creatinine Estim Creat Clear Calc Estimated GFR POC Glucose 214 H 241 H 163 H Random Glucose Calcium Imaging Radiology Impressions: ITS Impressions Chest X-Ray 07/15/25 15:24 IMPRESSION: Clear lungs. Electronically signed by: Brice Bunch MD 07/15/2025 03:40 PM EDT RP Hip/Pelvis X-Ray 07/19/25 11:20 IMPRESSION: Patchy increased sclerosis which may be due to renal osteodystrophy. Other etiologies including metastatic disease are not excluded. Clinical correlation is recommended. Electronically signed by: Brice Bunch MD 07/19/2025 11:49 AM EDT RP Lumbar Spine X-Ray 07/19/25 11:20 IMPRESSION: Mild degenerative disc disease. Electronically signed by: Brice Bunch MD 07/19/2025 11:50 AM EDT RP Chest X-Ray 07/19/25 11:33 IMPRESSION: Right lower lobe pneumonia. Follow-up is recommended to document resolution. Electronically signed by: Brice Bunch MD 07/19/2025 11:44 AM EDT RP Medications Medications Current Medications Acetaminophen (Acetaminophen 325 Mg Tablet) 650 mg PO Q6H PRN PRN Reason: Headache/Pain, Scale 1-10 Last Admin: 07/20/25 06:56 Dose: 650 mg Al Hydroxide/Mg Hydroxide (Magnesium Hydrox/Alum Hydrox 30 Ml Oral.Susp) 30 ml PO Q6H PRN PRN Reason: Heartburn/Nausea Albuterol Sulfate (Albuterol Sulfate (0.083%) 2.5 Mg/3 Ml Vial.Neb) 2.5 mg INHALE Q4H PRN PRN Reason: Shortness of Breath/Wheezing Last Admin: 07/18/25 21:12 Dose: 2.5 mg Aspirin (Aspirin 81 Mg Tab.Chew) 81 mg PO DAILY [facility] Last Admin: 07/20/25 08:29 Dose: 81 mg Atorvastatin Calcium (Atorvastatin Calcium 40 Mg Tablet) 40 mg PO BEDTIME [facility] Last Admin: 07/19/25 21:21 Dose: 40 mg Clopidogrel Bisulfate (Clopidogrel Bisulfate 75 Mg Tablet) 75 mg PO DAILY [facility] Last Admin: 07/20/25 08:29 Dose: 75 mg Cyanocobalamin (Cyanocobalamin (Vitamin B-12) 1,000 Mcg Tablet) 1,000 mcg PO DAILY [facility] Last Admin: 07/20/25 08:29 Dose: 1,000 mcg Empagliflozin (Empagliflozin 10 Mg Tablet) 10 mg PO DAILY [facility] Last Admin: 07/20/25 08:29 Dose: 10 mg Ferrous Sulfate (Ferrous Sulfate 324 Mg Tablet.) 324 mg PO TID [facility] Last Admin: 07/20/25 08:30 Dose: 324 mg Fluticasone Propionate (Fluticasone Propionate Nasal 16 Gm [place]) 1 spray NOSTRIL-B DAILY [facility] Last Admin: 07/20/25 08:31 Dose: 1 spray Furosemide (Furosemide 40 Mg Tablet) 40 mg PO DAILY [facility] On Hold: 07/20/25 09:00 Furosemide (Furosemide 20 Mg Tablet) 20 mg PO DAILY [facility]; Protocol Gabapentin (Gabapentin 600 Mg Tablet) 600 mg PO TID [facility] Last Admin: 07/20/25 08:29 Dose: 600 mg Insulin Glargine (Insulin Glargine,Hum.Rec.Anlog 100 Unit/Ml 10 Ml Vial) 50 unit SUBCUT BEDTIME [facility] Last Admin: 07/19/25 21:18 Dose: 50 unit Insulin Human Lispro (Insulin Lispro 100 Unit/Ml 3 Ml Vial) 0 unit SUBCUT QIDACHS [facility]; Protocol Last Admin: 07/20/25 08:30 Dose: 2 unit Levofloxacin (Levofloxacin 750 Mg Tablet) 750 mg PO Q24H [facility] Stop: 07/29/25 13:59 Last Admin: 07/19/25 15:15 Dose: 750 mg Lorazepam (Lorazepam 0.5 Mg Tablet) 0.5 mg PO BID PRN PRN Reason: Anxiety Last Admin: 07/20/25 01:16 Dose: 0.5 mg Losartan Potassium (Losartan Potassium 25 Mg Tablet) 25 mg PO DAILY [facility] On Hold: 07/17/25 09:33 Last Admin: 07/17/25 08:19 Dose: 25 mg Magnesium Hydroxide (Milk Of Magnesia 30 Ml Oral.Susp) 30 ml PO DAILY PRN PRN Reason: Constipation Melatonin (Melatonin 3 Mg Tablet) 6 mg PO BEDTIME [facility] Last Admin: 07/19/25 21:15 Dose: 6 mg Metoprolol Succinate (Metoprolol Succinate Er 50 Mg Tab.Er.24h) 50 mg PO DAILY [facility] Last Admin: 07/20/25 08:29 Dose: 50 mg Montelukast Sodium (Montelukast Sodium 10 Mg Tablet) 10 mg PO BEDTIME [facility] Last Admin: 07/19/25 21:15 Dose: 10 mg Pantoprazole Sodium (Pantoprazole Sodium 20 Mg Tablet.Dr) 40 mg PO DAILY [facility] Last Admin: 07/20/25 08:29 Dose: 40 mg Polyethylene Glycol (Polyethylene Glycol 3350 17 Gm Powd.Pack) 17 gm PO DAILY [facility] Last Admin: 07/20/25 08:31 Dose: Not Given Risperidone (Risperidone 1 Mg Tablet) 1 mg PO BID [facility] Last Admin: 07/20/25 08:29 Dose: 1 mg Tamsulosin HCl (Tamsulosin Hcl 0.4 Mg Capsule) 0.4 mg PO BEDTIME [facility] Last Admin: 07/19/25 21:16 Dose: 0.4 mg Thiamine HCl (Thiamine Hcl 100 Mg Tablet) 100 mg PO DAILY [facility] Last Admin: 07/20/25 08:29 Dose: 100 mg Tiotropium [place] (Tiotropium [place] 2.5 Mcg 1 Puff/2.5 Mcg Mist.Inhal) 2 puff INHALE RDAILY [facility] Last Admin: 07/20/25 08:28 Dose: 2 puff Tizanidine HCl (Tizanidine Hcl 4 Mg Tablet) 2 mg PO BEDTIME [facility] Last Admin: 07/19/25 21:16 Dose: 2 mg Tramadol HCl (Tramadol Hcl 50 Mg Tablet) 25 mg PO Q6H PRN PRN Reason: severe left hip pain Last Admin: 07/20/25 01:06 Dose: 25 mg Trazodone HCl (Trazodone Hcl 50 Mg Tablet) 50 mg PO BEDTIME MRX1 PRN PRN Reason: Insomnia Last Admin: 07/20/25 01:16 Dose: 50 mg Vitamin D (Cholecalciferol (Vitamin D3) 25 Mcg Tablet) 50 mcg PO DAILY [facility] Last Admin: 07/20/25 08:29 Dose: 50 mcg Allergies Allergies Allergy/AdvReac Type Severity Reaction Status Date / Time Penicillins (PCN) AdvReac Unknown Verified 07/14/25 14:00 Assessment & Plan Assessment & Plan (1) RLL pneumonia: Status: Acute Code(s): J18.9 - Pneumonia, unspecified organism Plan Mr. Eden is a 75 year-old male who was initially brought to [facility] via EMS [place] [address] [place] police [place] the [place] inflicting laceration on left hand. No stitches required. He continued to self harm while in the ED. He reports he is hearing voices (reports male voice saying I want to see blood repeatedly), which then led to him acting on the voices thinking it may quiet them down. Although he endorses depressed mood in context of not having stable place to live and passive SI, he reports he does not want to but can't help if voices are ongoing. He reports he is not hearing voices now. We discussed risks, benefits and alternative treatment options. He agreed to start risperidone 1mg po BID. 07/19 continue tx. consult to hospitalist- left hip pain. no fall or injury. Updraft nebulizer as needed Patient with a history of asthma, not on any maintenance meds. Will start Spiriva 07/20: Patient found sitting on his bed with his feet on the floor and arms around his walker. He is irritable and tearful. He reports severe pain to his left hip. He rates his pain as 7/10 on the pain scale. Tramadol was increased to 50 mg Q6H as needed this morning. Patient repeatedly refused pain medication tramadol that his nurse offered at bedside. He eventually took the medication after intervention/education about his pain and treatment modalities by this provider. He denies anxiety or depression. He denies SI/HI/AH/VH. Continue current treatment regimen. PT consult made. Patient educated on: diagnosis, medication risk/benefits and therapeutic strategies Reason for continued inpatient stay Substantial Risk for: rapid decompensation Time Spent With Patient Time: Total time managing care of this patient today ____ minutes.
[2025-07-20 11:22] LABS: Glucose, Whole Blood 177 mg/dL (60-115)
[2025-07-20 16:39] LABS: Glucose, Whole Blood 216 mg/dL (60-115)
[2025-07-20 20:00] VITALS: BP 129/58; PULSE 71; RESP 16; TEMP 36.6; O2SAT 94
[2025-07-20] MEDS: Insulin Glargine,Hum.rec.anlog 100 UNIT/ML 10 ML VIAL 50 UNIT SUBCUT (20:46)
[2025-07-20 20:55] LABS: Glucose, Whole Blood 150 mg/dL (60-115)
[2025-07-21 06:00] VITALS: BMI 40.8
[2025-07-21 06:50] LABS: Glucose, Whole Blood 163 mg/dL (60-115)
[2025-07-21 08:00] VITALS: BP 125/58; PULSE 65; RESP 17; TEMP 36.3; O2SAT 92
[2025-07-21 08:18] VITALS: BP 125/58; PULSE 65
[2025-07-21] MEDS: Ferrous Sulfate 324 MG TABLET.DR PO ×3 (08:18→19:44)
[2025-07-21] MEDS: Metoprolol Succinate ER 50 MG TAB.ER.24H PO (08:18)
[2025-07-21] MEDS: Tiotropium Bromide 2.5 mcg 1 PUFF/2.5 MCG MIST.INHAL 2 PUFF INHALE (09:00)
--- NOTE | 2025-07-21 09:09 | P.PNIM_ITS ---
Subjective Subjective Date of Service: 07/21/25 Interval History: Patient seen for follow up ongoing bilateral hip pain, MAMADOU/PNA. Patient reports pain is slightly improved today a level 4/10. Still having difficulty walking however no pain when he is sitting in his chair. Patient reports that prior to admission he walked 5 miles, after this he stated that his started hurting the next day and has been hurting often on ever since. He denies any other concerns. Denies any shortness of breath or chest pain, breathing within normal limits. No hypoxia. Continues on antibiotic therapy for pneumonia. Labs pending, creatinine improved to 1.30. He is more alert, appears comfortable. Review of Systems Denies any shortness of breath, chest pain, headaches, dysuria, abdominal pain or discomfort, nausea, vomiting or diarrhea. Denies chills, body aches, muscle aches, fatigue or weight loss. Physical Exam 2 Exam: Exam: CONST: Alert and oriented, in NAD. Well nourished HEENT: Normocephalic, atraumatic, MMM, Eyes clear, Neck supple RESP: Lungs with rhonchi at bases, RRR even and regular. No increased work of breathing, no use of accessory muscles HEART:,RRR, S1, S2. No edema GI:Abdomen Soft NT, ND. + BS times four :Deferred SKIN: Warm dry and intact, no visible lesions or rashes. Followed by wound care for self-inflicted wounds on his hand. Picking area on his hand, advised patient not to pick area due to increased risk for infection NEURO:CN II-XII Intact bilaterally, Sensation intact. Speech clear PSYCH: Normal affect Vital Signs: Vital Signs: Last Vital Signs Temp 97.8 F 07/20/25 20:00 Pulse 65 07/21/25 08:18 Resp 16 07/20/25 20:00 BP 125/58 L 07/21/25 08:18 Pulse Ox 94 07/20/25 20:00 O2 Del Method Room Air 07/20/25 20:00 BMI result Body Mass Index 40.8 Objective Data Active Medications Acetaminophen (Acetaminophen 325 Mg Tablet) 650 mg PO Q6H PRN PRN Reason: Headache/Pain, Scale 1-10 Last Admin: 07/20/25 21:32 Dose: 650 mg Documented By: LILY Al Hydroxide/Mg Hydroxide (Magnesium Hydrox/Alum Hydrox 30 Ml Oral.Susp) 30 ml PO Q6H PRN PRN Reason: Heartburn/Nausea Albuterol Sulfate (Albuterol Sulfate (0.083%) 2.5 Mg/3 Ml Vial.Neb) 2.5 mg INHALE Q4H PRN PRN Reason: Shortness of Breath/Wheezing Last Admin: 07/18/25 21:12 Dose: 2.5 mg Documented By: ITALO Aspirin (Aspirin 81 Mg Tab.Chew) 81 mg PO DAILY [facility] Last Admin: 07/21/25 08:19 Dose: 81 mg Documented By: SASHA Atorvastatin Calcium (Atorvastatin Calcium 40 Mg Tablet) 40 mg PO BEDTIME [facility] Last Admin: 07/20/25 20:50 Dose: 40 mg Documented By: LILY Clopidogrel Bisulfate (Clopidogrel Bisulfate 75 Mg Tablet) 75 mg PO DAILY [facility] Last Admin: 07/21/25 08:18 Dose: 75 mg Documented By: SASHA Cyanocobalamin (Cyanocobalamin (Vitamin B-12) 1,000 Mcg Tablet) 1,000 mcg PO DAILY [facility] Last Admin: 07/21/25 08:17 Dose: 1,000 mcg Documented By: SASHA Empagliflozin (Empagliflozin 10 Mg Tablet) 10 mg PO DAILY [facility] Last Admin: 07/21/25 08:18 Dose: 10 mg Documented By: SASHA Ferrous Sulfate (Ferrous Sulfate 324 Mg Tablet.Dr) 324 mg PO TID [facility] Last Admin: 07/21/25 08:18 Dose: 324 mg Documented By: SASHA Fluticasone Propionate (Fluticasone Propionate Nasal 16 Gm [place]) 1 spray NOSTRIL-B DAILY [facility] Last Admin: 07/21/25 09:00 Dose: 1 spray Documented By: SASHA Furosemide (Furosemide 40 Mg Tablet) 40 mg PO DAILY [facility] On Hold: 07/20/25 09:00 Furosemide (Furosemide 20 Mg Tablet) 20 mg PO DAILY [facility]; Protocol Last Admin: 07/21/25 08:18 Dose: 20 mg Documented By: SASHA Gabapentin (Gabapentin 600 Mg Tablet) 600 mg PO TID [facility] Last Admin: 07/21/25 08:17 Dose: 600 mg Documented By: SASHA Insulin Glargine (Insulin Glargine,Hum.Rec.Anlog 100 Unit/Ml 10 Ml Vial) 50 unit SUBCUT BEDTIME [facility] Last Admin: 07/20/25 20:46 Dose: 50 unit Documented By: LILY Insulin Human Lispro (Insulin Lispro 100 Unit/Ml 3 Ml Vial) 0 unit SUBCUT QIDACHS [facility]; Protocol Last Admin: 07/21/25 08:17 Dose: 2 unit Documented By: SASHA Levofloxacin (Levofloxacin 750 Mg Tablet) 750 mg PO Q24H [facility] Stop: 07/29/25 13:59 Last Admin: 07/20/25 14:18 Dose: 750 mg Documented By: BELLA Lorazepam (Lorazepam 0.5 Mg Tablet) 0.5 mg PO BID PRN PRN Reason: Anxiety Last Admin: 07/20/25 01:16 Dose: 0.5 mg Documented By: LILY Losartan Potassium (Losartan Potassium 25 Mg Tablet) 25 mg PO DAILY [facility] On Hold: 07/17/25 09:33 Last Admin: 07/17/25 08:19 Dose: 25 mg Documented By: RUBEN Magnesium Hydroxide (Milk Of Magnesia 30 Ml Oral.Susp) 30 ml PO DAILY PRN PRN Reason: Constipation Melatonin (Melatonin 3 Mg Tablet) 6 mg PO BEDTIME [facility] Last Admin: 07/20/25 20:49 Dose: 6 mg Documented By: LILY Metoprolol Succinate (Metoprolol Succinate Er 50 Mg Tab.Er.24h) 50 mg PO DAILY [facility] Last Admin: 07/21/25 08:18 Dose: 50 mg Documented By: SASHA Montelukast Sodium (Montelukast Sodium 10 Mg Tablet) 10 mg PO BEDTIME [facility] Last Admin: 07/20/25 20:50 Dose: 10 mg Documented By: LILY Pantoprazole Sodium (Pantoprazole Sodium 20 Mg Tablet.Dr) 40 mg PO DAILY [facility] Last Admin: 07/21/25 08:19 Dose: 40 mg Documented By: SASHA Polyethylene Glycol (Polyethylene Glycol 3350 17 Gm Powd.Pack) 17 gm PO DAILY [facility] Last Admin: 07/21/25 08:21 Dose: Not Given Documented By: SASHA Non-Admin Reason: Patient Refused Risperidone (Risperidone 1 Mg Tablet) 1 mg PO BID [facility] Last Admin: 07/21/25 08:18 Dose: 1 mg Documented By: SASHA Tamsulosin HCl (Tamsulosin Hcl 0.4 Mg Capsule) 0.4 mg PO BEDTIME [facility] Last Admin: 07/20/25 20:50 Dose: 0.4 mg Documented By: LILY Thiamine HCl (Thiamine Hcl 100 Mg Tablet) 100 mg PO DAILY [facility] Last Admin: 07/21/25 08:18 Dose: 100 mg Documented By: SASHA Tiotropium [place] (Tiotropium [place] 2.5 Mcg 1 Puff/2.5 Mcg Mist.Inhal) 2 puff INHALE RDAILY [facility] Last Admin: 07/21/25 09:00 Dose: 2 puff Documented By: SASHA Tizanidine HCl (Tizanidine Hcl 4 Mg Tablet) 2 mg PO BEDTIME [facility] Last Admin: 07/20/25 20:47 Dose: 2 mg Documented By: LILY Tramadol HCl (Tramadol Hcl 50 Mg Tablet) 50 mg PO Q6H PRN PRN Reason: severe left hip pain Last Admin: 07/21/25 00:29 Dose: 50 mg Documented By: LILY Trazodone HCl (Trazodone Hcl 50 Mg Tablet) 50 mg PO BEDTIME MRX1 PRN PRN Reason: Insomnia Last Admin: 07/20/25 21:32 Dose: 50 mg Documented By: LILY Vitamin D (Cholecalciferol (Vitamin D3) 25 Mcg Tablet) 50 mcg PO DAILY [facility] Last Admin: 07/21/25 08:19 Dose: 50 mcg Documented By: SASHA Labs 07/19/25 07:11 Labs: Laboratory Results - last 24 hr 07/20/25 07/20/25 07/20/25 11:18 16:31 20:27 POC Glucose 177 H 216 H 150 H 07/21/25 06:46 POC Glucose 163 H Assessment and Plan (1) RLL pneumonia: Status: Acute Plan 75-year-old male with past medical history listed below is admitted to inpatient [facility] for continued care after he presented to the hospital with self- harming behaviors and depression. Depression with self harming behavior Per psych team Bilateral hip pain X-ray demonstrated patchy sclerosis of the bones which possibly due to renal osteodystrophy but can not exclude metastatic disease CT scan ordered to further evaluate Additional lab work ordered MAMADOU on CKD 3B, improving 1.47-1.3 today, baseline 1.20 Encourage po fluids Urinalysis negative for infection. Renal US normal Nephrology consult pending Decrease Lasix to 40 in am and 20 mgs in pm. Avoid nephrotoxins. Right lower lobe pneumonia Noted on chest x-ray Continue Levaquin 750 daily for 5 days due to PCN allergy Updraft nebulizer as needed Patient with a history of asthma, not on any maintenance meds. Continue Spiriva Laceration to dorsum of left hand and fingers/scratch abrasions to calf. Continue local wound care Wound care following. No evidence of infection Coronary artery disease/history of stroke/CHF/hypertension Continue aspirin, Plavix, atorvastatin and Jardiance. Continue metoprolol 50 mg daily extended release Continue losartan at 25 mg daily, blood pressure is stable Continue Lasix twice daily at reduced dose in pm. 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 Blood sugars reasonably controlled, readings under 200. Chronic kidney disease Stage 3 B Baseline 1.2 Avoid nephrotoxins Continue to monitor-nephrology consult pending BPH Continue tamsulosin GERD Continue Protonix Vitamin-D deficiency Continue vitamin-D daily Thank you for allowing me to participate in the care of this patient. Will follow with you, please notify medical provider with any changes in condition or concerns. Quality Stroke Does the patient have a stroke diagnosis?: No VTE Prior VTE?: No VTE Risk Level:: Medical - low VTE Device Contraindication: Treatment Not Indicated VTE Drug Contraindication: N/A - Med Ordered
--- NOTE | 2025-07-21 09:20 | HO.PSYCHPN ---
Subjective Subjective Date of Service: 07/21/25 Reason For Visit: Depression Subjective Notes: Conditional Voluntary Medical Problems Affecting Mental Status: Yes Interim History: Patient found in the day room ambulating in wheelchair. He notes that he feels good. He is cheerful and socializing with peers. He reports 4/10 lower back and left hip pain. He denies anxiety or depression. He denies SI/HI/AH/VH. Medication Compliance: Yes Side effects from medications: No Review of Systems Acute medical concerns: Yes Lower back and left hip pain Mental Status Exam Mental Status Exam Narrative: Appearance: Casually dressed, adequate hygiene Behavior: Calm cooperative throughout the interview. Cheerful. Appropriate eye contact, no signs of psychomotor agitation or psychomotor retardation present Speech: Normal volume and prosody Thought process: Linear Thought content: On pain management Mood: Good Affect: mood-congruent SI:denies HI:denies VH/AH:none Delusions: None Insight/judgment: Impaired insight and judgment Memory/cog: Alert and oriented. grossly intact to conversational testing Diagnostics Vital Signs (24Hr): Vital Signs - 24 hr 07/20/25 20:00 07/21/25 08:18 07/21/25 08:18 Temperature 97.8 F Pulse Rate 71 65 Respiratory Rate 16 Blood Pressure 129/58 L 125/58 L 125/58 L Pulse Oximetry 94 Oxygen Delivery Method Room Air BMI result Body Mass Index 40.8 Labs 07/21/25 13:39 Labs: Laboratory Results - last 48 hr 07/19/25 07/19/25 07/19/25 07:11 11:12 16:18 Sodium 141 Potassium 4.5 Chloride 107 Carbon Dioxide 25 Anion Gap 14 BUN 50 H Creatinine 1.30 Estim Creat Clear Calc 53.7 Estimated GFR 54 POC Glucose 172 H 214 H Random Glucose 144 H Calcium 8.7 07/19/25 07/20/25 07/20/25 20:13 06:45 11:18 Sodium Potassium Chloride Carbon Dioxide Anion Gap BUN Creatinine Estim Creat Clear Calc Estimated GFR POC Glucose 241 H 163 H 177 H Random Glucose Calcium 07/20/25 07/20/25 07/21/25 16:31 20:27 06:46 Sodium Potassium Chloride Carbon Dioxide Anion Gap BUN Creatinine Estim Creat Clear Calc Estimated GFR POC Glucose 216 H 150 H 163 H Random Glucose Calcium Imaging Radiology Impressions: ITS Impressions Chest X-Ray 07/15/25 15:24 IMPRESSION: Clear lungs. Electronically signed by: Brice Bunch MD 07/15/2025 03:40 PM EDT RP Hip/Pelvis X-Ray 07/19/25 11:20 IMPRESSION: Patchy increased sclerosis which may be due to renal osteodystrophy. Other etiologies including metastatic disease are not excluded. Clinical correlation is recommended. Electronically signed by: Brice Bunch MD 07/19/2025 11:49 AM EDT RP Lumbar Spine X-Ray 07/19/25 11:20 IMPRESSION: Mild degenerative disc disease. Electronically signed by: Brice Bunch MD 07/19/2025 11:50 AM EDT RP Chest X-Ray 07/19/25 11:33 IMPRESSION: Right lower lobe pneumonia. Follow-up is recommended to document resolution. Electronically signed by: Brice Bunch MD 07/19/2025 11:44 AM EDT RP Medications Medications Current Medications Acetaminophen (Acetaminophen 325 Mg Tablet) 650 mg PO Q6H PRN PRN Reason: Headache/Pain, Scale 1-10 Last Admin: 07/20/25 21:32 Dose: 650 mg Al Hydroxide/Mg Hydroxide (Magnesium Hydrox/Alum Hydrox 30 Ml Oral.Susp) 30 ml PO Q6H PRN PRN Reason: Heartburn/Nausea Albuterol Sulfate (Albuterol Sulfate (0.083%) 2.5 Mg/3 Ml Vial.Neb) 2.5 mg INHALE Q4H PRN PRN Reason: Shortness of Breath/Wheezing Last Admin: 07/18/25 21:12 Dose: 2.5 mg Aspirin (Aspirin 81 Mg Tab.Chew) 81 mg PO DAILY [facility] Last Admin: 07/21/25 08:19 Dose: 81 mg Atorvastatin Calcium (Atorvastatin Calcium 40 Mg Tablet) 40 mg PO BEDTIME [facility] Last Admin: 07/20/25 20:50 Dose: 40 mg Clopidogrel Bisulfate (Clopidogrel Bisulfate 75 Mg Tablet) 75 mg PO DAILY [facility] Last Admin: 07/21/25 08:18 Dose: 75 mg Cyanocobalamin (Cyanocobalamin (Vitamin B-12) 1,000 Mcg Tablet) 1,000 mcg PO DAILY [facility] Last Admin: 07/21/25 08:17 Dose: 1,000 mcg Empagliflozin (Empagliflozin 10 Mg Tablet) 10 mg PO DAILY [facility] Last Admin: 07/21/25 08:18 Dose: 10 mg Ferrous Sulfate (Ferrous Sulfate 324 Mg Tablet.Dr) 324 mg PO TID [facility] Last Admin: 07/21/25 08:18 Dose: 324 mg Fluticasone Propionate (Fluticasone Propionate Nasal 16 Gm [place]) 1 spray NOSTRIL-B DAILY [facility] Last Admin: 07/21/25 09:00 Dose: 1 spray Furosemide (Furosemide 40 Mg Tablet) 40 mg PO DAILY [facility] On Hold: 07/20/25 09:00 Furosemide (Furosemide 20 Mg Tablet) 20 mg PO DAILY [facility]; Protocol Last Admin: 07/21/25 08:18 Dose: 20 mg Gabapentin (Gabapentin 600 Mg Tablet) 600 mg PO TID [facility] Last Admin: 07/21/25 08:17 Dose: 600 mg Insulin Glargine (Insulin Glargine,Hum.Rec.Anlog 100 Unit/Ml 10 Ml Vial) 50 unit SUBCUT BEDTIME [facility] Last Admin: 07/20/25 20:46 Dose: 50 unit Insulin Human Lispro (Insulin Lispro 100 Unit/Ml 3 Ml Vial) 0 unit SUBCUT QIDACHS [facility]; Protocol Last Admin: 07/21/25 08:17 Dose: 2 unit Levofloxacin (Levofloxacin 750 Mg Tablet) 750 mg PO Q24H [facility] Stop: 07/29/25 13:59 Last Admin: 07/20/25 14:18 Dose: 750 mg Lorazepam (Lorazepam 0.5 Mg Tablet) 0.5 mg PO BID PRN PRN Reason: Anxiety Last Admin: 07/20/25 01:16 Dose: 0.5 mg Losartan Potassium (Losartan Potassium 25 Mg Tablet) 25 mg PO DAILY [facility] On Hold: 07/17/25 09:33 Last Admin: 07/17/25 08:19 Dose: 25 mg Magnesium Hydroxide (Milk Of Magnesia 30 Ml Oral.Susp) 30 ml PO DAILY PRN PRN Reason: Constipation Melatonin (Melatonin 3 Mg Tablet) 6 mg PO BEDTIME [facility] Last Admin: 07/20/25 20:49 Dose: 6 mg Metoprolol Succinate (Metoprolol Succinate Er 50 Mg Tab.Er.24h) 50 mg PO DAILY [facility] Last Admin: 07/21/25 08:18 Dose: 50 mg Montelukast Sodium (Montelukast Sodium 10 Mg Tablet) 10 mg PO BEDTIME [facility] Last Admin: 07/20/25 20:50 Dose: 10 mg Pantoprazole Sodium (Pantoprazole Sodium 20 Mg Tablet.Dr) 40 mg PO DAILY [facility] Last Admin: 07/21/25 08:19 Dose: 40 mg Polyethylene Glycol (Polyethylene Glycol 3350 17 Gm Powd.Pack) 17 gm PO DAILY [facility] Last Admin: 07/21/25 08:21 Dose: Not Given Prednisone (Prednisone 20 Mg Tablet) 40 mg PO DAILY [facility] Stop: 07/25/25 23:55 Risperidone (Risperidone 1 Mg Tablet) 1 mg PO BID [facility] Last Admin: 07/21/25 08:18 Dose: 1 mg Tamsulosin HCl (Tamsulosin Hcl 0.4 Mg Capsule) 0.4 mg PO BEDTIME [facility] Last Admin: 07/20/25 20:50 Dose: 0.4 mg Thiamine HCl (Thiamine Hcl 100 Mg Tablet) 100 mg PO DAILY [facility] Last Admin: 07/21/25 08:18 Dose: 100 mg Tiotropium [place] (Tiotropium [place] 2.5 Mcg 1 Puff/2.5 Mcg Mist.Inhal) 2 puff INHALE RDAILY [facility] Last Admin: 07/21/25 09:00 Dose: 2 puff Tizanidine HCl (Tizanidine Hcl 4 Mg Tablet) 2 mg PO BEDTIME [facility] Last Admin: 07/20/25 20:47 Dose: 2 mg Tramadol HCl (Tramadol Hcl 50 Mg Tablet) 50 mg PO Q6H PRN PRN Reason: severe left hip pain Last Admin: 07/21/25 00:29 Dose: 50 mg Trazodone HCl (Trazodone Hcl 50 Mg Tablet) 50 mg PO BEDTIME MRX1 PRN PRN Reason: Insomnia Last Admin: 07/20/25 21:32 Dose: 50 mg Vitamin D (Cholecalciferol (Vitamin D3) 25 Mcg Tablet) 50 mcg PO DAILY [facility] Last Admin: 07/21/25 08:19 Dose: 50 mcg Allergies Allergies Allergy/AdvReac Type Severity Reaction Status Date / Time Penicillins (PCN) AdvReac Unknown Verified 07/14/25 14:00 Assessment & Plan Assessment & Plan (1) RLL pneumonia: Status: Acute Code(s): J18.9 - Pneumonia, unspecified organism Plan Mr. Eden is a 75 year-old male who was initially brought to [facility] via EMS [place] [address] [place] police [place] inflic[place] laceration on left hand. No stitches required. He continued to self harm while in the ED. He reports he is hearing voices (reports male voice saying I want to see blood repeatedly), which then led to him acting on the voices thinking it may quiet them down. Although he endorses depressed mood in context of not having stable place to live and passive SI, he reports he does not want to but can't help if voices are ongoing. He reports he is not hearing voices now. We discussed risks, benefits and alternative treatment options. He agreed to start risperidone 1mg po BID. 07/19 continue tx. consult to hospitalist- left hip pain. no fall or injury. Updraft nebulizer as needed Patient with a history of asthma, not on any maintenance meds. Will start Spiriva 07/20: Patient found sitting on his bed with his feet on the floor and arms around his walker. He is irritable and tearful. He reports severe pain to his left hip. He rates his pain as 7/10 on the pain scale. Tramadol was increased to 50 mg Q6H as needed this morning. Patient repeatedly refused pain medication tramadol that his nurse offered at bedside. He eventually took the medication after intervention/education about his pain and treatment modalities by this provider. He denies anxiety or depression. He denies SI/HI/AH/VH. Continue current treatment regimen. PT consult made. 07/21: Reports 4/10 lower back and left hip pain. Cheerful and socializing with peers. Prednisone 40 mg daily x5 days ordered for pain. Continue current treatment regimen. [place] Hospitalist notes she would order more imaging for musculoskeletal pain. Patient educated on: therapeutic strategies Reason for continued inpatient stay Substantial Risk for: rapid decompensation Time Spent With Patient Time: Total time managing care of this patient today ____ minutes.
[2025-07-21 10:11] VITALS: BMI 39.8
[2025-07-21 11:26] LABS: Glucose, Whole Blood 185 mg/dL (60-115)
[2025-07-21 14:04] LABS: Parathyroid Hormone Intact 163.8 pg/mL (8.7-77.1)
[2025-07-21 14:21] LABS: Alanine Aminotransferase 13 U/L (0-40); Albumin Level 3.7 g/dL (3.5-5.0); Alkaline Phosphatase 83 U/L (39-117); Anion Gap 13 (12-20); Aspartate Amino Transferase 19 U/L (5-37); Blood Urea Nitrogen 49 mg/dL (9-16); Calcium 9.3 mg/dL (8.4-10.2); Carbon Dioxide 26 mmol/L (22-29); Chloride 104 mmol/L (96-108); Creatinine Clr Calc Pharmacy 50.2; Estimated Glomerular Filt Rate 48; Potassium 4.9 mmol/L (3.3-5.1); Sodium 138 mmol/L (135-145); Total Protein 8.0 g/dL (6.5-8.0)
--- NOTE | 2025-07-21 15:46 | PM.CNNEP ---
History of Present Illness Reason for Consult Consult date: 07/21/25 Chief Complaint Chief complaint: Depression History of Present Illness Narrative: 75 years old gentleman with past medical history of CKD stage IIIB, CAD, history of stroke, type 2 diabetes with insulin-dependent, hypertension, BPH, congestive heart failure is admitted to inpatient [facility] due to depression and self-harming behaviors. Nephrology is consulted because his creatinine is 1.42 which appears to be better than his baseline given his history of CKD stage IIIB Review of Systems Review of Systems Const : no body aches, no chills, no excessive sweating and no fatigue Eyes: no blurry vision and no change in vision ENT: no bleeding gums and no change in voice, no dizziness Card: no chest pain, ?no shortness of breath, no orthopnea, no PND Resp: no cough, ?no excessive phlegm production, no SOB GI: no abdominal pain and no nausea, no vomiting : no hematuria, no urinary frequency and no difficulty voiding Musc: no abnormal gait, no bone pain Neuro: no ?abnormal movements, no weakness,and +behavioral changes Psych: no behavioral changes and no change in appetite Endo: no change in body appearance, no cold intolerance, PMFSH Social History Social History Housing: Other Do you presently have visiting nurse or other home services: No Comment: 5 minute checks Patient Tobacco Use Status: Former Tobacco user Tobacco use type: Cigarette Smoked in Last 30 Days: No e-Cigarette/Vaping Use: Never Used Currently Displaying Signs/Symptoms of Drug Intoxication Withdrawal: No Have you been hit, kicked, punched, or otherwise hurt by someone within the past year? If so, by whom?: No Is there a partner from a previous relationship who is making you feel unsafe now?: No Are you made to feel afraid or neglected: No Spiritual Healthcare Practices: Quaker Advance Directives: No Advance Directives Information Provided: No Suicidal Behavior: Self-injurious behavior Current/Past Psychiatric Disorders: Chronic mental illess Garcia Symptoms: Hopelessness Access to Firearms: No Do you have thoughts of harming others: None Do you have a plan to hurt others: No Plan Recently lost weight without trying: No Nutrition Risks: No Nutritional Risk Poor oral hygiene: No service: No Sexual orientation: Straight/Heterosexual Meds Allergies Allergy/AdvReac Type Severity Reaction Status Date / Time Penicillins (PCN) AdvReac Unknown Verified 07/14/25 14:00 Active Medications: Current Medications Acetaminophen (Acetaminophen 325 Mg Tablet) 650 mg PO Q6H PRN PRN Reason: Headache/Pain, Scale 1-10 Last Admin: 07/20/25 21:32 Dose: 650 mg Al Hydroxide/Mg Hydroxide (Magnesium Hydrox/Alum Hydrox 30 Ml Oral.Susp) 30 ml PO Q6H PRN PRN Reason: Heartburn/Nausea Albuterol Sulfate (Albuterol Sulfate (0.083%) 2.5 Mg/3 Ml Vial.Neb) 2.5 mg INHALE Q4H PRN PRN Reason: Shortness of Breath/Wheezing Last Admin: 07/18/25 21:12 Dose: 2.5 mg Aspirin (Aspirin 81 Mg Tab.Chew) 81 mg PO DAILY [facility] Last Admin: 07/21/25 08:19 Dose: 81 mg Atorvastatin Calcium (Atorvastatin Calcium 40 Mg Tablet) 40 mg PO BEDTIME [facility] Last Admin: 07/20/25 20:50 Dose: 40 mg Clopidogrel Bisulfate (Clopidogrel Bisulfate 75 Mg Tablet) 75 mg PO DAILY [facility] Last Admin: 07/21/25 08:18 Dose: 75 mg Cyanocobalamin (Cyanocobalamin (Vitamin B-12) 1,000 Mcg Tablet) 1,000 mcg PO DAILY [facility] Last Admin: 07/21/25 08:17 Dose: 1,000 mcg Empagliflozin (Empagliflozin 10 Mg Tablet) 10 mg PO DAILY [facility] Last Admin: 07/21/25 08:18 Dose: 10 mg Ferrous Sulfate (Ferrous Sulfate 324 Mg Tablet.) 324 mg PO TID [facility] Last Admin: 07/21/25 14:47 Dose: 324 mg Fluticasone Propionate (Fluticasone Propionate Nasal 16 Gm [place]) 1 spray NOSTRIL-B DAILY [facility] Last Admin: 07/21/25 09:00 Dose: 1 spray Furosemide (Furosemide 40 Mg Tablet) 40 mg PO DAILY [facility] On Hold: 07/20/25 09:00 Furosemide (Furosemide 20 Mg Tablet) 20 mg PO DAILY [facility]; Protocol Last Admin: 07/21/25 08:18 Dose: 20 mg Gabapentin (Gabapentin 600 Mg Tablet) 600 mg PO TID [facility] Last Admin: 07/21/25 14:48 Dose: 600 mg Insulin Glargine (Insulin Glargine,Hum.Rec.Anlog 100 Unit/Ml 10 Ml Vial) 50 unit SUBCUT BEDTIME [facility] Last Admin: 07/20/25 20:46 Dose: 50 unit Insulin Human Lispro (Insulin Lispro 100 Unit/Ml 3 Ml Vial) 0 unit SUBCUT QIDACHS [facility]; Protocol Last Admin: 07/21/25 11:34 Dose: 2 unit Levofloxacin (Levofloxacin 750 Mg Tablet) 750 mg PO Q24H [facility] Stop: 07/29/25 13:59 Last Admin: 07/21/25 14:48 Dose: 750 mg Lorazepam (Lorazepam 0.5 Mg Tablet) 0.5 mg PO BID PRN PRN Reason: Anxiety Last Admin: 07/20/25 01:16 Dose: 0.5 mg Losartan Potassium (Losartan Potassium 25 Mg Tablet) 25 mg PO DAILY [facility] On Hold: 07/17/25 09:33 Last Admin: 07/17/25 08:19 Dose: 25 mg Magnesium Hydroxide (Milk Of Magnesia 30 Ml Oral.Susp) 30 ml PO DAILY PRN PRN Reason: Constipation Melatonin (Melatonin 3 Mg Tablet) 6 mg PO BEDTIME [facility] Last Admin: 07/20/25 20:49 Dose: 6 mg Metoprolol Succinate (Metoprolol Succinate Er 50 Mg Tab.Er.24h) 50 mg PO DAILY [facility] Last Admin: 07/21/25 08:18 Dose: 50 mg Montelukast Sodium (Montelukast Sodium 10 Mg Tablet) 10 mg PO BEDTIME [facility] Last Admin: 07/20/25 20:50 Dose: 10 mg Pantoprazole Sodium (Pantoprazole Sodium 20 Mg Tablet.Dr) 40 mg PO DAILY [facility] Last Admin: 07/21/25 08:19 Dose: 40 mg Polyethylene Glycol (Polyethylene Glycol 3350 17 Gm Powd.Pack) 17 gm PO DAILY [facility] Last Admin: 07/21/25 08:21 Dose: Not Given Prednisone (Prednisone 20 Mg Tablet) 40 mg PO DAILY [facility] Stop: 07/25/25 23:55 Last Admin: 07/21/25 09:55 Dose: 40 mg Risperidone (Risperidone 1 Mg Tablet) 1 mg PO BID [facility] Last Admin: 07/21/25 08:18 Dose: 1 mg Tamsulosin HCl (Tamsulosin Hcl 0.4 Mg Capsule) 0.4 mg PO BEDTIME [facility] Last Admin: 07/20/25 20:50 Dose: 0.4 mg Thiamine HCl (Thiamine Hcl 100 Mg Tablet) 100 mg PO DAILY [facility] Last Admin: 07/21/25 08:18 Dose: 100 mg Tiotropium [place] (Tiotropium [place] 2.5 Mcg 1 Puff/2.5 Mcg Mist.Inhal) 2 puff INHALE RDAILY [facility] Last Admin: 07/21/25 09:00 Dose: 2 puff Tizanidine HCl (Tizanidine Hcl 4 Mg Tablet) 2 mg PO BEDTIME [facility] Last Admin: 07/20/25 20:47 Dose: 2 mg Tramadol HCl (Tramadol Hcl 50 Mg Tablet) 50 mg PO Q6H PRN PRN Reason: severe left hip pain Last Admin: 07/21/25 12:05 Dose: 50 mg Trazodone HCl (Trazodone Hcl 50 Mg Tablet) 50 mg PO BEDTIME MRX1 PRN PRN Reason: Insomnia Last Admin: 07/20/25 21:32 Dose: 50 mg Vitamin D (Cholecalciferol (Vitamin D3) 25 Mcg Tablet) 50 mcg PO DAILY [facility] Last Admin: 07/21/25 08:19 Dose: 50 mcg Home Medications ?Medication ?Instructions ?Recorded ?Confirmed ?Last Taken ?Type Aspir-81 81 mg PO DAILY 07/14/25 07/14/25 Unknown History Singulair 10 mg PO BEDTIME 07/14/25 07/14/25 Unknown History atorvastatin 40 mg PO BEDTIME 07/14/25 07/14/25 Unknown History cholecalciferol (vitamin D3) 50,000 unit PO QWEEK 07/14/25 07/14/25 Unknown History clopidogrel 75 mg PO DAILY 07/14/25 07/14/25 Unknown History cyanocobalamin (vitamin B-12) 1,000 mcg PO DAILY 07/14/25 07/14/25 Unknown History 1,000 mcg tablet dapagliflozin propanediol 5 mg PO DAILY 07/14/25 07/14/25 Unknown History docusate sodium 100 mg PO DAILY 07/14/25 07/14/25 Unknown History escitalopram oxalate 5 mg PO DAILY 07/14/25 07/14/25 Unknown History ferrous sulfate 324 mg PO TID 07/14/25 07/14/25 Unknown History furosemide 40 mg PO BID 07/14/25 07/14/25 Unknown History gabapentin 600 mg PO TID 07/14/25 07/14/25 Unknown History insulin glargine 100 unit/mL (3 50 unit subcut BEDTIME 07/14/25 07/14/25 Unknown History mL) subcutaneous pen (Basaglar KwikPen U-100 Insulin) insulin lispro See Rx Instructions .Route .COMPLEX 07/14/25 07/14/25 Unknown History insulin lispro See Rx Instructions .Route .COMPLEX 07/14/25 07/14/25 Unknown History insulin lispro See Rx Instructions .Route .COMPLEX 07/14/25 07/14/25 Unknown History insulin lispro See Rx Instructions .Route .COMPLEX 07/14/25 07/14/25 Unknown History lorazepam 0.5 mg PO BID PRN Anxiety 07/14/25 07/14/25 Unknown History losartan 50 mg PO DAILY 07/14/25 07/14/25 Unknown History melatonin 6 mg PO BEDTIME 07/14/25 07/14/25 Unknown History metoprolol succinate 50 mg 50 mg PO DAILY 07/14/25 07/14/25 Unknown History tablet,extended release 24 hr pantoprazole 40 mg PO DAILY 07/14/25 07/14/25 Unknown History tamsulosin 0.4 mg PO DAILY 07/14/25 07/14/25 Unknown History thiamine HCl (vitamin B1) 100 mg PO DAILY 07/14/25 07/14/25 Unknown History tizanidine 2 mg PO BEDTIME 07/14/25 07/14/25 Unknown History Physical Exam Vital Signs: Last Vital Signs Temp 97.3 F 07/21/25 08:00 Pulse 65 07/21/25 08:18 Resp 17 07/21/25 08:00 BP 125/58 L 07/21/25 08:18 Pulse Ox 92 07/21/25 08:00 O2 Del Method Room Air 07/21/25 08:00 BMI result Body Mass Index 39.8 General: not in any acute distress, comfortable, sitting on the chair Nutritional Appearance: well nourished and weight Eyes: normal position, no icterus Neck: No lymphadenopathy, no thyromegaly Resp: bilateral air entry equal, no added sounds present Cardio: normal S1, S2 heard, no murmur heard, no edema GI: soft, nontender, no guarding, no hepatosplenomegaly : bladder normal to inspection, bladder normal to palpation, no renal angle tenderness Skin: no rashes or lesions noted and elasticity normal Neuro: oriented to person, oriented to place, oriented to time and moves all extremities Results Lab Results 07/21/25 13:39 Lab results: Chemistry 07/19/25 07/21/25 07:11 13:39 Sodium 141 138 Potassium 4.5 4.9 Carbon Dioxide 25 26 BUN 50 H 49 H Creatinine 1.30 1.42 H Calcium 8.7 9.3 D Phosphorus 3.1 Assessment and Plan (1) Congestive heart failure: Status: Acute (2) Acute kidney injury superimposed on stage 3b chronic kidney disease: Status: Acute Plan Chronic kidney disease stage IIIB: Patient has history of CKD stage IIIB, in the setting of significant vascular disease including CAD, stroke I would suspect his CKD is secondary to chronic atherosclerotic renovascular disease. Patient has a diagnosis of CKD stage IIIB that means his GFR is between 30-45 at baseline. Currently his GFR is 50 which seems to be better than his baseline. His urinalysis is clean, no cells, no protein. Would withhold any further inpatient workup at this point. Avoid nephrotoxic agents, dose all the medication according to GFR. Vitamin-D deficiency; PTH is elevated secondary to vitamin-D deficiency Given his good renal function we can dose him with ergocalciferol 50k units weekly to load his vitamin-D stores. He does not need vitamin D3 at this point. Hypertension: Blood pressure is well-controlled Continue losartan 25, metoprolol 50 mg, tamsulosin 0.4 Nephrology we will sign off, please notify us when the patient is ready for discharge we will arrange for outpatient follow up. Procedures Date of Service Date of Service: 07/21/25
[2025-07-21 16:18] LABS: Glucose, Whole Blood 205 mg/dL (60-115)
[2025-07-21 19:14] LABS: Glucose, Whole Blood 276 mg/dL (60-115)
[2025-07-21 19:23] VITALS: BP 181/73; RESP 20; TEMP 37.4; O2SAT 92
[2025-07-21] MEDS: Insulin Glargine,Hum.rec.anlog 100 UNIT/ML 10 ML VIAL 50 UNIT SUBCUT (19:40)
[2025-07-22 06:00] VITALS: BMI 40.7
[2025-07-22 06:38] LABS: Glucose, Whole Blood 216 mg/dL (60-115)
[2025-07-22 08:00] VITALS: BP 128/62; PULSE 84; RESP 16; TEMP 36.3; O2SAT 91
[2025-07-22 11:18] LABS: Glucose, Whole Blood 215 mg/dL (60-115)
[2025-07-22] MEDS: Tiotropium Bromide 2.5 mcg 1 PUFF/2.5 MCG MIST.INHAL 2 PUFF INHALE (11:24)
[2025-07-22] MEDS: Ferrous Sulfate 324 MG TABLET.DR PO ×3 (11:25→20:26)
[2025-07-22] MEDS: Metoprolol Succinate ER 50 MG TAB.ER.24H PO (11:26)
[2025-07-22 16:23] LABS: Glucose, Whole Blood 226 mg/dL (60-115)
--- NOTE | 2025-07-22 16:38 | P.PNPSI_ITS ---
Subjective Subjective Date of Service: 07/22/25 Reason For Visit: Depression Subjective Notes: Conditional Voluntary Healthcare Proxy: Yes Guardianship: No Medical Problems Affecting Mental Status: No Interim History: Medical record and nursing notes reviewed; case discussed during rounds with team/nursing staff, and met with patient for supportive therapy/psychoeducation, as well as medication management. Meet with patient in the presence of burning machine operator in sensory room. Patient reports bearable pain on left buttock area, rated pain 2/20. Report he has some happy tears today after talking to his granddaughter who is 5 years as she prays for him to be better to be home soon with family. Report mood and sleep/appetite are good. Denies anxiety/depression or safety concern. He says he would [place] stay [place] instead of returning [place]. Report that he can stay with her granddaughter who is 48 y.o in [place]. Explained to patient that he may not get good benefits for health insurance as he has not been here in [place] in a good period of time. Report he has been here more than 3 months. Patient is aware of potential family meeting next week on Friday at 1300 virtually and discharge to follow after. VSs stable, no SOB, O2Sat this morning 92% but improved later on of the day. Ambulate with wheelchair. Visbile, sociall appropriately with peers and staff and attended groups. Medication Compliance: Yes Side effects from medications: No Attending Groups: Yes Review of Systems Acute medical concerns: No Medical Review of Systems: unchanged Review of Systems Review of Systems Const : no body aches, no chills, no excessive sweating and no fatigue Eyes: no blurry vision and no change in vision ENT: no bleeding gums and no change in voice, no dizziness Card: no chest pain, ?no shortness of breath, no orthopnea, no PND Resp: no cough, ?no excessive phlegm production, no SOB GI: no abdominal pain and no nausea, no vomiting : no hematuria, no urinary frequency and no difficulty voiding Musc: no abnormal gait, no bone pain Neuro: no ?abnormal movements, no weakness,and +behavioral changes Psych: no behavioral changes and no change in appetite Endo: no change in body appearance, no cold intolerance, Mental Status Exam Mental Status Exam Narrative: Appearance: Casually dressed, adequate hygiene Behavior: Calm cooperative throughout the interview. Cheerful. Appropriate eye contact, no signs of psychomotor agitation or psychomotor retardation present Speech: Normal volume and prosody Thought process: Linear Thought content: On pain management Mood: Good with happy tears Affect: mood-congruent SI:denies HI:denies VH/AH:none Delusions: None Insight/judgment: Improvedt Memory/cog: Alert and oriented. grossly intact to conversational testing Diagnostics Vital Signs (24Hr): Vital Signs - 24 hr 07/21/25 19:23 07/22/25 08:00 Temperature 99.3 F 97.3 F Pulse Rate 84 Respiratory Rate 20 16 Blood Pressure 181/73 H 128/62 Pulse Oximetry 92 91 L Oxygen Delivery Method Room Air Room Air BMI result Body Mass Index 40.7 Labs 07/21/25 13:39 Labs: Laboratory Results - last 48 hr 07/20/25 07/20/25 07/21/25 16:31 20:27 06:46 Sodium Potassium Chloride Carbon Dioxide Anion Gap BUN Creatinine Estim Creat Clear Calc Estimated GFR POC Glucose 216 H 150 H 163 H Random Glucose Calcium Phosphorus Total Bilirubin AST ALT Alkaline Phosphatase Total Protein Albumin 25-OH Vitamin D Total PTH Intact 07/21/25 07/21/25 07/21/25 11:22 13:39 16:10 Sodium 138 Potassium 4.9 Chloride 104 Carbon Dioxide 26 Anion Gap 13 BUN 49 H Creatinine 1.42 H Estim Creat Clear Calc 50.2 Estimated GFR 48 POC Glucose 185 H 205 H Random Glucose 155 H Calcium 9.3 D Phosphorus 3.1 Total Bilirubin 0.2 AST 19 ALT 13 Alkaline Phosphatase 83 Total Protein 8.0 Albumin 3.7 25-OH Vitamin D Total 19.7 L PTH Intact 163.8 H 07/21/25 07/22/25 07/22/25 19:09 06:34 11:08 Sodium Potassium Chloride Carbon Dioxide Anion Gap BUN Creatinine Estim Creat Clear Calc Estimated GFR POC Glucose 276 H 216 H 215 H Random Glucose Calcium Phosphorus Total Bilirubin AST ALT Alkaline Phosphatase Total Protein Albumin 25-OH Vitamin D Total PTH Intact 07/22/25 16:16 Sodium Potassium Chloride Carbon Dioxide Anion Gap BUN Creatinine Estim Creat Clear Calc Estimated GFR POC Glucose 226 H Random Glucose Calcium Phosphorus Total Bilirubin AST ALT Alkaline Phosphatase Total Protein Albumin 25-OH Vitamin D Total PTH Intact Imaging Radiology Impressions: ITS Impressions Chest X-Ray 07/15/25 15:24 IMPRESSION: Clear lungs. Electronically signed by: Brice Bunch MD 07/15/2025 03:40 PM EDT RP Hip/Pelvis X-Ray 07/19/25 11:20 IMPRESSION: Patchy increased sclerosis which may be due to renal osteodystrophy. Other etiologies including metastatic disease are not excluded. Clinical correlation is recommended. Electronically signed by: Brice Bunch MD 07/19/2025 11:49 AM EDT RP Lumbar Spine X-Ray 07/19/25 11:20 IMPRESSION: Mild degenerative disc disease. Electronically signed by: Brice Bunch MD 07/19/2025 11:50 AM EDT RP Chest X-Ray 07/19/25 11:33 IMPRESSION: Right lower lobe pneumonia. Follow-up is recommended to document resolution. Electronically signed by: Brice Bunch MD 07/19/2025 11:44 AM EDT RP Abdomen/Pelvis CT 07/21/25 15:26 IMPRESSION: Lobulated fat-containing umbilical hernia. Atelectasis versus airspace disease, lung bases. Abundant stool without intestinal obstruction pattern. Simple cyst, left kidney. Degenerative changes both hips with questionable trochanter bursitis. Multilevel thoracolumbar spondylosis resulting in central spinal canal stenosis. Please for to the CT lumbar spine. Fleischner guidelines were followed. 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 Mild narrowing of neural foramina bilaterally at along the lumbar spinal canal. The findings are slightly worse on the right at the T12-L1 disc level there is a right facet joint hypertrophy extending into the neural foramina and a small bony spur extending into right lateral recess at the L2-3 disc level. No abnormal enhancement seen within the lower dorsal or lumbar spinal canal or the region of conus medullaris. If patient has persistent radiculopathy and numbness and tingling in the legs further evaluation with neurology may be helpful. Electronically signed by: Gabo Bush MD 07/22/2025 07:26 AM EDT RP Medications Medications Current Medications Acetaminophen (Acetaminophen 325 Mg Tablet) 650 mg PO Q6H PRN PRN Reason: Headache/Pain, Scale 1-10 Last Admin: 07/20/25 21:32 Dose: 650 mg Al Hydroxide/Mg Hydroxide (Magnesium Hydrox/Alum Hydrox 30 Ml Oral.Susp) 30 ml PO Q6H PRN PRN Reason: Heartburn/Nausea Albuterol Sulfate (Albuterol Sulfate 90 Mcg 8 Gm Inhaler) 2 puff INHALE RQ4H PRN PRN Reason: SOB/Wheezing Aspirin (Aspirin 81 Mg Tab.Chew) 81 mg PO DAILY [facility] Last Admin: 07/22/25 11:25 Dose: 81 mg Atorvastatin Calcium (Atorvastatin Calcium 40 Mg Tablet) 40 mg PO BEDTIME [facility] Last Admin: 07/21/25 19:47 Dose: 40 mg Clopidogrel Bisulfate (Clopidogrel Bisulfate 75 Mg Tablet) 75 mg PO DAILY [facility] Last Admin: 07/22/25 11:25 Dose: 75 mg Cyanocobalamin (Cyanocobalamin (Vitamin B-12) 1,000 Mcg Tablet) 1,000 mcg PO DAILY [facility] Last Admin: 07/22/25 11:25 Dose: 1,000 mcg Empagliflozin (Empagliflozin 10 Mg Tablet) 10 mg PO DAILY [facility] Last Admin: 07/22/25 11:27 Dose: 10 mg Ergocalciferol (Ergocalciferol (Vitamin D2) 1,250 Mcg Capsule) 1,250 mcg PO Fr@0900 [facility] Stop: 09/09/25 09:01 Last Admin: 07/22/25 16:32 Dose: Not Given Ferrous Sulfate (Ferrous Sulfate 324 Mg Tablet.) 324 mg PO TID [facility] Last Admin: 07/22/25 14:59 Dose: 324 mg Fluticasone Propionate (Fluticasone Propionate Nasal 16 Gm Daisy) 1 spray NOSTRIL-B DAILY [facility] Last Admin: 07/22/25 11:24 Dose: 1 spray Furosemide (Furosemide 40 Mg Tablet) 40 mg PO DAILY [facility] On Hold: 07/20/25 09:00 Furosemide (Furosemide 20 Mg Tablet) 20 mg PO DAILY [facility]; Protocol Last Admin: 07/22/25 11:26 Dose: 20 mg Gabapentin (Gabapentin 600 Mg Tablet) 600 mg PO TID [facility] Last Admin: 07/22/25 14:59 Dose: 600 mg Insulin Glargine (Insulin Glargine,Hum.Rec.Anlog 100 Unit/Ml 10 Ml Vial) 50 unit SUBCUT BEDTIME [facility] Last Admin: 07/21/25 19:40 Dose: 50 unit Insulin Human Lispro (Insulin Lispro 100 Unit/Ml 3 Ml Vial) 0 unit SUBCUT QIDACHS [facility]; Protocol Last Admin: 07/22/25 16:30 Dose: 4 unit Levofloxacin (Levofloxacin 750 Mg Tablet) 750 mg PO Q24H [facility] Stop: 07/29/25 13:59 Last Admin: 07/22/25 14:59 Dose: 750 mg Lorazepam (Lorazepam 0.5 Mg Tablet) 0.5 mg PO BID PRN PRN Reason: Anxiety Last Admin: 07/20/25 01:16 Dose: 0.5 mg Losartan Potassium (Losartan Potassium 25 Mg Tablet) 25 mg PO DAILY [facility] On Hold: 07/17/25 09:33 Last Admin: 07/17/25 08:19 Dose: 25 mg Magnesium Hydroxide (Milk Of Magnesia 30 Ml Oral.Susp) 30 ml PO DAILY PRN PRN Reason: Constipation Melatonin (Melatonin 3 Mg Tablet) 6 mg PO BEDTIME [facility] Last Admin: 07/21/25 19:45 Dose: 6 mg Metoprolol Succinate (Metoprolol Succinate Er 50 Mg Tab.Er.24h) 50 mg PO DAILY [facility] Last Admin: 07/22/25 11:26 Dose: 50 mg Montelukast Sodium (Montelukast Sodium 10 Mg Tablet) 10 mg PO BEDTIME [facility] Last Admin: 07/21/25 19:45 Dose: 10 mg Pantoprazole Sodium (Pantoprazole Sodium 20 Mg Tablet.Dr) 40 mg PO DAILY [facility] Last Admin: 07/22/25 11:25 Dose: 40 mg Polyethylene Glycol (Polyethylene Glycol 3350 17 Gm Powd.Pack) 17 gm PO DAILY [facility] Last Admin: 07/22/25 11:24 Dose: 17 gm Prednisone (Prednisone 20 Mg Tablet) 40 mg PO DAILY [facility] Stop: 07/25/25 23:55 Last Admin: 07/22/25 11:25 Dose: 40 mg Risperidone (Risperidone 1 Mg Tablet) 1 mg PO BID [facility] Last Admin: 07/22/25 11:26 Dose: 1 mg Tamsulosin HCl (Tamsulosin Hcl 0.4 Mg Capsule) 0.4 mg PO BEDTIME [facility] Last Admin: 07/21/25 19:46 Dose: 0.4 mg Thiamine HCl (Thiamine Hcl 100 Mg Tablet) 100 mg PO DAILY [facility] Last Admin: 07/22/25 11:26 Dose: 100 mg Tiotropium [place] (Tiotropium [place] 2.5 Mcg 1 Puff/2.5 Mcg Mist.Inhal) 2 puff INHALE RDAILY [facility] Last Admin: 07/22/25 11:24 Dose: 2 puff Tizanidine HCl (Tizanidine Hcl 4 Mg Tablet) 2 mg PO BEDTIME [facility] Last Admin: 07/21/25 19:42 Dose: 2 mg Tramadol HCl (Tramadol Hcl 50 Mg Tablet) 50 mg PO Q6H PRN PRN Reason: severe left hip pain Last Admin: 07/21/25 12:05 Dose: 50 mg Trazodone HCl (Trazodone Hcl 50 Mg Tablet) 50 mg PO BEDTIME [facility] PRN PRN Reason: Insomnia Last Admin: 07/21/25 19:46 Dose: 50 mg Allergies Allergies Allergy/AdvReac Type Severity Reaction Status Date / Time Penicillins (PCN) AdvReac Unknown Verified 07/14/25 14:00 Assessment & Plan Assessment & Plan (1) RLL pneumonia: Status: Acute Code(s): J18.9 - Pneumonia, unspecified organism Plan Mr. Eden is a 75 year-old male who was initially brought to [facility] via EMS on [address] by police [place] the [place] inflicting laceration on left hand. No stitches required. He continued to self harm while in the ED. He reports he is hearing voices (reports male voice saying I want to see blood repeatedly), which then led to him acting on the voices thinking it may quiet them down. Although he endorses depressed mood in context of not having stable place to live and passive SI, he reports he does not want to but can't help if voices are ongoing. He reports he is not hearing voices now. We discussed risks, benefits and alternative treatment options. He agreed to start risperidone 1mg po BID. 07/19 continue tx. consult to hospitalist- left hip pain. no fall or injury. Updraft nebulizer as needed Patient with a history of asthma, not on any maintenance meds. Will start Spiriva 07/20: Patient found sitting on his bed with his feet on the floor and arms around his walker. He is irritable and tearful. He reports severe pain to his left hip. He rates his pain as 7/10 on the pain scale. Tramadol was increased to 50 mg Q6H as needed this morning. Patient repeatedly refused pain medication tramadol that his nurse offered at bedside. He eventually took the medication after intervention/education about his pain and treatment modalities by this provider. He denies anxiety or depression. He denies SI/HI/AH/VH. Continue current treatment regimen. PT consult made. 07/21: Reports 4/10 lower back and left hip pain. Cheerful and socializing with peers. Prednisone 40 mg daily x5 days ordered for pain. Continue current treatment regimen. [place] Hospitalist notes she would order more imaging for musculoskeletal pain. 07/22/25: Meet with patient in the presence of burning machine operator in sensory room. Patient reports bearable pain on left buttock area, rated pain 2/20. Report he has some happy tears today after talking to his granddaughter who is 5 years as she prays for him to be better to be home soon with family. Report mood and sleep/appetite are good. Denies anxiety/depression or safety concern. He says he would [place] stay [place] instead of [place] Report that he can stay with her granddaughter who is 48 y.o in [place]. Explained to patient that he may not get good benefits for health insurance as he has [place] been here in [place] in a good period of time. Report he has been here more than 3 months. Patient is aware of potential family meeting next week on Friday at 1300 virtually and discharge to follow after. VSs stable, no SOB, O2Sat this morning 92% but improved later on of the day. Ambulate with wheelchair. Visbile, sociall appropriately with peers and staff and attended groups. Patient educated on: diagnosis, medication risk/benefits and therapeutic strategies Informed Consent: understands Reason for continued inpatient stay Substantial Risk for: med/psych decompensation Time Spent With Patient Time: Total time managing care of this patient today ____ minutes.
[2025-07-22 19:55] LABS: Glucose, Whole Blood 365 mg/dL (60-115)
[2025-07-22 20:00] VITALS: BP 136/68; PULSE 73; RESP 16; TEMP 36.6; O2SAT 94
[2025-07-22] MEDS: Insulin Glargine,Hum.rec.anlog 100 UNIT/ML 10 ML VIAL 50 UNIT SUBCUT (20:27)
[2025-07-23 06:01] VITALS: BMI 40.1
[2025-07-23 06:09] LABS: Glucose, Whole Blood 321 mg/dL (60-115)
[2025-07-23 08:00] VITALS: BP 182/74; PULSE 83; RESP 18; TEMP 36.6; O2SAT 94
[2025-07-23] MEDS: Ferrous Sulfate 324 MG TABLET.DR PO ×3 (08:11→21:54)
[2025-07-23] MEDS: Metoprolol Succinate ER 50 MG TAB.ER.24H PO (08:11)
[2025-07-23] MEDS: Tiotropium Bromide 2.5 mcg 1 PUFF/2.5 MCG MIST.INHAL 2 PUFF INHALE (08:17)
[2025-07-23 09:20] VITALS: BP 146/69
[2025-07-23 11:20] LABS: Glucose, Whole Blood 275 mg/dL (60-115)
[2025-07-23 14:22] LABS: Calcium, Ionized 5.0 mg/dL (4.7-5.5)
[2025-07-23 16:06] LABS: Glucose, Whole Blood 391 mg/dL (60-115)
[2025-07-23 19:43] VITALS: BP 191/82; PULSE 77; TEMP 36.5; O2SAT 94
[2025-07-23] MEDS: Albuterol Sulfate 90 MCG 8 GM INHALER 2 PUFF INHALE (19:43)
--- NOTE | 2025-07-23 20:23 | HO.PSYCHPN ---
Subjective Subjective Date of Service: 07/23/25 Reason For Visit: Depression Subjective Notes: Conditional Voluntary Healthcare Proxy: Yes Guardianship: No Medical Problems Affecting Mental Status: No Interim History: Medical record and nursing notes reviewed; case discussed during rounds with team/nursing staff, and met with patient for supportive therapy/psychoeducation, as well as medication management. Patient slept for 5 hours, medication compliant, no side effects. He is reasonable, social and appropriate. Reports singing he people's vehicles saw about the pig/pork meat. Denies safety concerns. He was not happy regarding the roommate who was snoring loudly, and was not quiet at night which interfere with his sleep. Encourage patient to to use ear plugs she sees if they are helpful. Blood pressure is fluctuated. We will continue to monitor. Medication Compliance: Yes Side effects from medications: No Attending Groups: Yes Review of Systems Acute medical concerns: No Medical Review of Systems: unchanged Review of Systems Review of Systems Const : no body aches, no chills, no excessive sweating and no fatigue Eyes: no blurry vision and no change in vision ENT: no bleeding gums and no change in voice, no dizziness Card: no chest pain, ?no shortness of breath, no orthopnea, no PND Resp: no cough, ?no excessive phlegm production, no SOB GI: no abdominal pain and no nausea, no vomiting : no hematuria, no urinary frequency and no difficulty voiding Musc: no abnormal gait, no bone pain Neuro: no ?abnormal movements, no weakness,and +behavioral changes Psych: no behavioral changes and no change in appetite Endo: no change in body appearance, no cold intolerance, Mental Status Exam Mental Status Exam Narrative: Appearance: Casually dressed, adequate hygiene Behavior: Calm cooperative throughout the interview. Cheerful. Appropriate eye contact, no signs of psychomotor agitation or psychomotor retardation present Speech: Normal volume and prosody Thought process: Linear Thought content: WNL. organized. Mood: Good Affect: mood-congruent SI:denies HI:denies VH/AH:none Delusions: None Insight/judgment: Improved Memory/cog: Alert and oriented. grossly intact to conversational testing Diagnostics Vital Signs (24Hr): Vital Signs - 24 hr 07/23/25 08:00 07/23/25 09:20 07/23/25 19:43 Temperature 98 F 97.7 F Pulse Rate 83 77 Respiratory Rate 18 Blood Pressure 182/74 H 146/69 H 191/82 H Pulse Oximetry 94 94 Oxygen Delivery Method Room Air Room Air BMI result Body Mass Index 40.1 Labs 07/21/25 13:39 Labs: Laboratory Results - last 48 hr 07/21/25 07/22/25 07/22/25 13:39 06:34 11:08 POC Glucose 216 H 215 H Ionized Calcium 5.0 07/22/25 07/22/25 07/23/25 16:16 19:51 06:04 POC Glucose 226 H 365 H* 321 H Ionized Calcium 07/23/25 07/23/25 11:16 15:59 POC Glucose 275 H 391 H* Ionized Calcium Imaging Radiology Impressions: ITS Impressions Chest X-Ray 07/15/25 15:24 IMPRESSION: Clear lungs. Electronically signed by: Brice Bunch MD 07/15/2025 03:40 PM EDT RP Hip/Pelvis X-Ray 07/19/25 11:20 IMPRESSION: Patchy increased sclerosis which may be due to renal osteodystrophy. Other etiologies including metastatic disease are not excluded. Clinical correlation is recommended. Electronically signed by: Brice Bunch MD 07/19/2025 11:49 AM EDT RP Lumbar Spine X-Ray 07/19/25 11:20 IMPRESSION: Mild degenerative disc disease. Electronically signed by: Brice Bunch MD 07/19/2025 11:50 AM EDT RP Chest X-Ray 07/19/25 11:33 IMPRESSION: Right lower lobe pneumonia. Follow-up is recommended to document resolution. Electronically signed by: Brice Bunch MD 07/19/2025 11:44 AM EDT RP Abdomen/Pelvis CT 07/21/25 15:26 IMPRESSION: Lobulated fat-containing umbilical hernia. Atelectasis versus airspace disease, lung bases. Abundant stool without intestinal obstruction pattern. Simple cyst, left kidney. Degenerative changes both hips with questionable trochanter bursitis. Multilevel thoracolumbar spondylosis resulting in central spinal canal stenosis. Please for to the CT lumbar spine. Fleischner guidelines were followed. 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 Mild narrowing of neural foramina bilaterally at along the lumbar spinal canal. The findings are slightly worse on the right at the T12-L1 disc level there is a right facet joint hypertrophy extending into the neural foramina and a small bony spur extending into right lateral recess at the L2-3 disc level. No abnormal enhancement seen within the lower dorsal or lumbar spinal canal or the region of conus medullaris. If patient has persistent radiculopathy and numbness and tingling in the legs further evaluation with neurology may be helpful. Electronically signed by: Gabo Bush MD 07/22/2025 07:26 AM EDT RP Medications Medications Current Medications Acetaminophen (Acetaminophen 325 Mg Tablet) 650 mg PO Q6H PRN PRN Reason: Headache/Pain, Scale 1-10 Last Admin: 07/20/25 21:32 Dose: 650 mg Al Hydroxide/Mg Hydroxide (Magnesium Hydrox/Alum Hydrox 30 Ml Oral.Susp) 30 ml PO Q6H PRN PRN Reason: Heartburn/Nausea Albuterol Sulfate (Albuterol Sulfate 90 Mcg 8 Gm Inhaler) 2 puff INHALE RQ4H PRN PRN Reason: SOB/Wheezing Last Admin: 07/23/25 19:43 Dose: 2 puff Aspirin (Aspirin 81 Mg Tab.Chew) 81 mg PO DAILY [facility] Last Admin: 07/23/25 08:11 Dose: 81 mg Atorvastatin Calcium (Atorvastatin Calcium 40 Mg Tablet) 40 mg PO BEDTIME [facility] Last Admin: 07/22/25 20:25 Dose: 40 mg Clopidogrel Bisulfate (Clopidogrel Bisulfate 75 Mg Tablet) 75 mg PO DAILY [facility] Last Admin: 07/23/25 08:12 Dose: 75 mg Cyanocobalamin (Cyanocobalamin (Vitamin B-12) 1,000 Mcg Tablet) 1,000 mcg PO DAILY [facility] Last Admin: 07/23/25 08:11 Dose: 1,000 mcg Empagliflozin (Empagliflozin 10 Mg Tablet) 10 mg PO DAILY [facility] Last Admin: 07/23/25 08:12 Dose: 10 mg Ergocalciferol (Ergocalciferol (Vitamin D2) 1,250 Mcg Capsule) 1,250 mcg PO Fr@0900 [facility] Stop: 09/09/25 09:01 Last Admin: 07/22/25 16:32 Dose: Not Given Ferrous Sulfate (Ferrous Sulfate 324 Mg Tablet.Dr) 324 mg PO TID [facility] Last Admin: 07/23/25 14:29 Dose: 324 mg Fluticasone Propionate (Fluticasone Propionate Nasal 16 Gm [place]) 1 spray NOSTRIL-B DAILY [facility] Last Admin: 07/23/25 08:17 Dose: 1 spray Furosemide (Furosemide 40 Mg Tablet) 40 mg PO DAILY [facility] On Hold: 07/20/25 09:00 Furosemide (Furosemide 20 Mg Tablet) 20 mg PO DAILY [facility]; Protocol Last Admin: 07/23/25 08:12 Dose: 20 mg Gabapentin (Gabapentin 600 Mg Tablet) 600 mg PO TID [facility] Last Admin: 07/23/25 14:29 Dose: 600 mg Insulin Glargine (Insulin Glargine,Hum.Rec.Anlog 100 Unit/Ml 10 Ml Vial) 50 unit SUBCUT BEDTIME [facility] Last Admin: 07/22/25 20:27 Dose: 50 unit Insulin Human Lispro (Insulin Lispro 100 Unit/Ml 3 Ml Vial) 0 unit SUBCUT QIDACHS [facility]; Protocol Last Admin: 07/23/25 16:40 Dose: 10 unit Levofloxacin (Levofloxacin 750 Mg Tablet) 750 mg PO Q24H [facility] Stop: 07/29/25 13:59 Last Admin: 07/23/25 14:29 Dose: 750 mg Lorazepam (Lorazepam 0.5 Mg Tablet) 0.5 mg PO BID PRN PRN Reason: Anxiety Last Admin: 07/20/25 01:16 Dose: 0.5 mg Losartan Potassium (Losartan Potassium 25 Mg Tablet) 25 mg PO DAILY [facility] On Hold: 07/17/25 09:33 Last Admin: 07/17/25 08:19 Dose: 25 mg Magnesium Hydroxide (Milk Of Magnesia 30 Ml Oral.Susp) 30 ml PO DAILY PRN PRN Reason: Constipation Melatonin (Melatonin 3 Mg Tablet) 6 mg PO BEDTIME [facility] Last Admin: 07/22/25 20:26 Dose: 6 mg Metoprolol Succinate (Metoprolol Succinate Er 50 Mg Tab.Er.24h) 50 mg PO DAILY [facility] Last Admin: 07/23/25 08:11 Dose: 50 mg Montelukast Sodium (Montelukast Sodium 10 Mg Tablet) 10 mg PO BEDTIME [facility] Last Admin: 07/22/25 20:26 Dose: 10 mg Pantoprazole Sodium (Pantoprazole Sodium 20 Mg Tablet.Dr) 40 mg PO DAILY [facility] Last Admin: 07/23/25 08:11 Dose: 40 mg Polyethylene Glycol (Polyethylene Glycol 3350 17 Gm Powd.Pack) 17 gm PO DAILY [facility] Last Admin: 07/23/25 09:25 Dose: Not Given Prednisone (Prednisone 20 Mg Tablet) 40 mg PO DAILY [facility] Stop: 07/25/25 23:55 Last Admin: 07/23/25 08:12 Dose: 40 mg Risperidone (Risperidone 1 Mg Tablet) 1 mg PO BID [facility] Last Admin: 07/23/25 08:12 Dose: 1 mg Tamsulosin HCl (Tamsulosin Hcl 0.4 Mg Capsule) 0.4 mg PO BEDTIME [facility] Last Admin: 07/22/25 20:25 Dose: 0.4 mg Thiamine HCl (Thiamine Hcl 100 Mg Tablet) 100 mg PO DAILY [facility] Last Admin: 07/23/25 08:11 Dose: 100 mg Tiotropium [place] (Tiotropium [place] 2.5 Mcg 1 Puff/2.5 Mcg Mist.Inhal) 2 puff INHALE RDAILY [facility] Last Admin: 07/23/25 08:17 Dose: 2 puff Tizanidine HCl (Tizanidine Hcl 4 Mg Tablet) 2 mg PO BEDTIME [facility] Last Admin: 07/22/25 20:26 Dose: 2 mg Tramadol HCl (Tramadol Hcl 50 Mg Tablet) 50 mg PO Q6H PRN PRN Reason: severe left hip pain Last Admin: 07/21/25 12:05 Dose: 50 mg Trazodone HCl (Trazodone Hcl 50 Mg Tablet) 50 mg PO BEDTIME MRX1 PRN PRN Reason: Insomnia Last Admin: 07/21/25 19:46 Dose: 50 mg Allergies Allergies Allergy/AdvReac Type Severity Reaction Status Date / Time Penicillins (PCN) AdvReac Unknown Verified 07/14/25 14:00 Assessment & Plan Assessment & Plan (1) RLL pneumonia: Status: Acute Code(s): J18.9 - Pneumonia, unspecified organism Plan Mr. Eden is a 75 year-old male who was initially brought to [facility] via EMS on [address] by police [place] the [place] inflic[place] laceration on left hand. No stitches required. He continued to self harm while in the ED. He reports he is hearing voices (reports male voice saying I want to see blood repeatedly), which then led to him acting on the voices thinking it may quiet them down. Although he endorses depressed mood in context of not having stable place to live and passive SI, he reports he does not want to but can't help if voices are ongoing. He reports he is not hearing voices now. We discussed risks, benefits and alternative treatment options. He agreed to start risperidone 1mg po BID. 07/19 continue tx. consult to hospitalist- left hip pain. no fall or injury. Updraft nebulizer as needed Patient with a history of asthma, not on any maintenance meds. Will start Spiriva 07/20: Patient found sitting on his bed with his feet on the floor and arms around his walker. He is irritable and tearful. He reports severe pain to his left hip. He rates his pain as 7/10 on the pain scale. Tramadol was increased to 50 mg Q6H as needed this morning. Patient repeatedly refused pain medication tramadol that his nurse offered at bedside. He eventually took the medication after intervention/education about his pain and treatment modalities by this provider. He denies anxiety or depression. He denies SI/HI/AH/VH. Continue current treatment regimen. PT consult made. 07/21: Reports 4/10 lower back and left hip pain. Cheerful and socializing with peers. Prednisone 40 mg daily x5 days ordered for pain. Continue current treatment regimen. [place] Hospitalist notes she would order more imaging for musculoskeletal pain. 07/22/25: Meet with patient in the presence of zone supervisor firearms in sensory room. Patient reports bearable pain on left buttock area, rated pain 2/20. Report he has some happy tears today after talking to his granddaughter who is 5 years as she prays for him to be better to be home soon with family. Report mood and sleep/appetite are good. Denies anxiety/depression or safety concern. He says he would rather stay in [place] instead of returning to [place]. Report that he can stay with her granddaughter who is 48 y.o in [place]. Explained to patient that he may not get good benefits for health insurance as he has not been here in [place] in a good period of time. Report he has been here more than 3 months. Patient is aware of potential family meeting next week on Friday at 1300 virtually and discharge to follow after. VSs stable, no SOB, O2Sat this morning 92% but improved later on of the day. Ambulate with wheelchair. Visbile, sociall appropriately with peers and staff and attended groups. 07/23/25: Patient slept for 5 hours, medication compliant, no side effects. He is reasonable, social and appropriate. Reports singing he [employer] vehicles saw about the pig/pork meat. Denies safety concerns. He was not happy regarding the roommate who was snoring loudly, and was not quiet at night which interfere with his sleep. Encourage patient to to use ear plugs she sees if they are helpful. Blood pressure is fluctuated. We will continue to monitor. Ambulating with a walker. Pain is under control Patient educated on: diagnosis, medication risk/benefits and therapeutic strategies Informed Consent: understands Reason for continued inpatient stay Substantial Risk for: med/psych decompensation Time Spent With Patient Time: Total time managing care of this patient today ____ minutes.
[2025-07-23 21:07] LABS: Glucose, Whole Blood 459 mg/dL (60-115)
[2025-07-23 21:30] VITALS: BP 148/88; O2SAT 97
[2025-07-23] MEDS: Insulin Glargine,Hum.rec.anlog 100 UNIT/ML 10 ML VIAL 50 UNIT SUBCUT (21:53)
[2025-07-23] MEDS: Throat Lozenge, Medicated LOZENGE 1 LOZENGE MUCOUS MEM (22:10)
[2025-07-24 05:50] VITALS: BMI 39.7
[2025-07-24 06:11] LABS: Glucose, Whole Blood 257 mg/dL (60-115)
[2025-07-24 08:24] VITALS: BP 162/80; PULSE 73; RESP 16; TEMP 36.3; O2SAT 93
[2025-07-24] MEDS: Metoprolol Succinate ER 50 MG TAB.ER.24H PO (08:30)
[2025-07-24] MEDS: Ferrous Sulfate 324 MG TABLET.DR PO ×3 (08:30→21:20)
[2025-07-24] MEDS: Tiotropium Bromide 2.5 mcg 1 PUFF/2.5 MCG MIST.INHAL 2 PUFF INHALE (10:23)
[2025-07-24 11:17] LABS: Glucose, Whole Blood 280 mg/dL (60-115)
--- NOTE | 2025-07-24 11:53 | HO.PSYCHPN ---
Subjective Subjective Date of Service: 07/24/25 Reason For Visit: Depression Subjective Notes: Conditional Voluntary Guardianship: No Medical Problems Affecting Mental Status: No Interim History: Medical record and nursing notes reviewed; case discussed during rounds with team/nursing staff, and met with patient for supportive therapy/psychoeducation, as well as medication management. Patient slept through the night, was compliant with medications, but not compliant with diabetic protocol. Patient has not care for his diet, blood sugar continued to be high, received coverage. Nursing reported the patient was dancing yesterday but has a tantrum moment over food for dinner yesterday, he threw the walker away which was taken away from the patient for safety issues. Patient requests the walker, explained to patient reason why he can not get walker. He walked with normal steady gait. Reports the pain on the hip is improving. Denies safety concerns. Continued to confirm that he wants to stay in [place]. Reported that his granddaughter will come in in person to have a meeting this week. Denies depression or anxiety, sleep is improving. Changing from 5 to 15 minutes safety checks Medication Compliance: Yes Side effects from medications: No Attending Groups: Intermittent Review of Systems Acute medical concerns: No Medical Review of Systems: unchanged Review of Systems Review of Systems Const : no body aches, no chills, no excessive sweating and no fatigue Eyes: no blurry vision and no change in vision ENT: no bleeding gums and no change in voice, no dizziness Card: no chest pain, ?no shortness of breath, no orthopnea, no PND Resp: no cough, ?no excessive phlegm production, no SOB GI: no abdominal pain and no nausea, no vomiting : no hematuria, no urinary frequency and no difficulty voiding Musc: no abnormal gait, no bone pain Neuro: no ?abnormal movements, no weakness,and +behavioral changes Psych: no behavioral changes and no change in appetite Endo: no change in body appearance, no cold intolerance, Yes all other systems are reviewed and are negative Mental Status Exam Mental Status Exam Narrative: Appearance: Casually dressed, adequate hygiene Behavior: Calm cooperative throughout the interview. Cheerful. Appropriate eye contact, no signs of psychomotor agitation or psychomotor retardation present Speech: Normal volume and prosody Thought process: Linear Thought content: WNL. organized. Mood: Good Affect: mood-congruent SI:denies HI:denies VH/AH:none Delusions: None Insight/judgment: Improved Memory/cog: Alert and oriented. grossly intact to conversational testing Diagnostics Vital Signs (24Hr): Vital Signs - 24 hr 07/23/25 19:43 07/23/25 21:30 07/24/25 08:24 Temperature 97.7 F 97.3 F Pulse Rate 77 73 Respiratory Rate 16 Blood Pressure 191/82 H 148/88 H 162/80 H Pulse Oximetry 94 97 93 Oxygen Delivery Method Room Air Room Air Room Air BMI result Body Mass Index 39.7 Labs 07/21/25 13:39 Labs: Laboratory Results - last 48 hr 07/21/25 07/22/25 07/22/25 13:39 16:16 19:51 POC Glucose 226 H 365 H* Ionized Calcium 5.0 07/23/25 07/23/25 07/23/25 06:04 11:16 15:59 POC Glucose 321 H 275 H 391 H* Ionized Calcium 07/23/25 07/24/25 07/24/25 21:01 06:07 11:07 POC Glucose 459 H* 257 H 280 H Ionized Calcium Imaging Radiology Impressions: ITS Impressions Chest X-Ray 07/15/25 15:24 IMPRESSION: Clear lungs. Electronically signed by: Brice Bunch MD 07/15/2025 03:40 PM EDT RP Hip/Pelvis X-Ray 07/19/25 11:20 IMPRESSION: Patchy increased sclerosis which may be due to renal osteodystrophy. Other etiologies including metastatic disease are not excluded. Clinical correlation is recommended. Electronically signed by: Brice Bunch MD 07/19/2025 11:49 AM EDT RP Lumbar Spine X-Ray 07/19/25 11:20 IMPRESSION: Mild degenerative disc disease. Electronically signed by: Brice Bunch MD 07/19/2025 11:50 AM EDT RP Chest X-Ray 07/19/25 11:33 IMPRESSION: Right lower lobe pneumonia. Follow-up is recommended to document resolution. Electronically signed by: Brice Bunch MD 07/19/2025 11:44 AM EDT RP Abdomen/Pelvis CT 07/21/25 15:26 IMPRESSION: Lobulated fat-containing umbilical hernia. Atelectasis versus airspace disease, lung bases. Abundant stool without intestinal obstruction pattern. Simple cyst, left kidney. Degenerative changes both hips with questionable trochanter bursitis. Multilevel thoracolumbar spondylosis resulting in central spinal canal stenosis. Please for to the CT lumbar spine. Fleischner guidelines were followed. 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 Mild narrowing of neural foramina bilaterally at along the lumbar spinal canal. The findings are slightly worse on the right at the T12-L1 disc level there is a right facet joint hypertrophy extending into the neural foramina and a small bony spur extending into right lateral recess at the L2-3 disc level. No abnormal enhancement seen within the lower dorsal or lumbar spinal canal or the region of conus medullaris. If patient has persistent radiculopathy and numbness and tingling in the legs further evaluation with neurology may be helpful. Electronically signed by: Gabo Bush MD 07/22/2025 07:26 AM EDT RP Medications Medications Current Medications Acetaminophen (Acetaminophen 325 Mg Tablet) 650 mg PO Q6H PRN PRN Reason: Headache/Pain, Scale 1-10 Last Admin: 07/20/25 21:32 Dose: 650 mg Al Hydroxide/Mg Hydroxide (Magnesium Hydrox/Alum Hydrox 30 Ml Oral.Susp) 30 ml PO Q6H PRN PRN Reason: Heartburn/Nausea Albuterol Sulfate (Albuterol Sulfate 90 Mcg 8 Gm Inhaler) 2 puff INHALE RQ4H PRN PRN Reason: SOB/Wheezing Last Admin: 07/23/25 19:43 Dose: 2 puff Albuterol Sulfate (Albuterol Sulfate (0.083%) 2.5 Mg/3 Ml Vial.Neb) 2.5 mg INHALE Q6H PRN PRN Reason: Wheezing Aspirin (Aspirin 81 Mg Tab.Chew) 81 mg PO DAILY [facility] Last Admin: 07/24/25 08:30 Dose: 81 mg Atorvastatin Calcium (Atorvastatin Calcium 40 Mg Tablet) 40 mg PO BEDTIME [facility] Last Admin: 07/23/25 21:54 Dose: 40 mg Benzocaine (Throat Lozenge, Medicated Lozenge) 1 lozenge MUCOUS MEM Q2H PRN PRN Reason: Sore Throat Last Admin: 07/23/25 22:10 Dose: 1 lozenge Clopidogrel Bisulfate (Clopidogrel Bisulfate 75 Mg Tablet) 75 mg PO DAILY [facility] Last Admin: 07/24/25 08:30 Dose: 75 mg Cyanocobalamin (Cyanocobalamin (Vitamin B-12) 1,000 Mcg Tablet) 1,000 mcg PO DAILY [facility] Last Admin: 07/24/25 08:30 Dose: 1,000 mcg Empagliflozin (Empagliflozin 10 Mg Tablet) 10 mg PO DAILY [facility] Last Admin: 07/24/25 08:30 Dose: 10 mg Ergocalciferol (Ergocalciferol (Vitamin D2) 1,250 Mcg Capsule) 1,250 mcg PO Fr@0900 [facility] Stop: 09/09/25 09:01 Last Admin: 07/22/25 16:32 Dose: Not Given Ferrous Sulfate (Ferrous Sulfate 324 Mg Tablet.) 324 mg PO TID [facility] Last Admin: 07/24/25 08:30 Dose: 324 mg Fluticasone Propionate (Fluticasone Propionate Nasal 16 Gm [place]) 1 spray NOSTRIL-B DAILY [facility] Last Admin: 07/24/25 10:24 Dose: 1 spray Furosemide (Furosemide 40 Mg Tablet) 40 mg PO DAILY [facility] On Hold: 07/20/25 09:00 Furosemide (Furosemide 20 Mg Tablet) 20 mg PO DAILY [facility]; Protocol Last Admin: 07/24/25 08:30 Dose: 20 mg Gabapentin (Gabapentin 600 Mg Tablet) 600 mg PO TID [facility] Last Admin: 07/24/25 08:30 Dose: 600 mg Insulin Glargine (Insulin Glargine,Hum.Rec.Anlog 100 Unit/Ml 10 Ml Vial) 50 unit SUBCUT BEDTIME [facility] Last Admin: 07/23/25 21:53 Dose: 50 unit Insulin Human Lispro (Insulin Lispro 100 Unit/Ml 3 Ml Vial) 0 unit SUBCUT QIDACHS [facility]; Protocol Last Admin: 07/24/25 11:26 Dose: 6 unit Levofloxacin (Levofloxacin 750 Mg Tablet) 750 mg PO Q24H [facility] Stop: 07/29/25 13:59 Last Admin: 07/23/25 14:29 Dose: 750 mg Lorazepam (Lorazepam 0.5 Mg Tablet) 0.5 mg PO BID PRN PRN Reason: Anxiety Last Admin: 07/23/25 21:53 Dose: 0.5 mg Losartan Potassium (Losartan Potassium 25 Mg Tablet) 25 mg PO DAILY [facility] On Hold: 07/17/25 09:33 Last Admin: 07/17/25 08:19 Dose: 25 mg Magnesium Hydroxide (Milk Of Magnesia 30 Ml Oral.Susp) 30 ml PO DAILY PRN PRN Reason: Constipation Melatonin (Melatonin 3 Mg Tablet) 6 mg PO BEDTIME [facility] Last Admin: 07/23/25 21:54 Dose: 6 mg Metoprolol Succinate (Metoprolol Succinate Er 50 Mg Tab.Er.24h) 50 mg PO DAILY [facility] Last Admin: 07/24/25 08:30 Dose: 50 mg Montelukast Sodium (Montelukast Sodium 10 Mg Tablet) 10 mg PO BEDTIME [facility] Last Admin: 07/23/25 21:54 Dose: 10 mg Pantoprazole Sodium (Pantoprazole Sodium 20 Mg Tablet.Dr) 40 mg PO DAILY [facility] Last Admin: 07/24/25 08:30 Dose: 40 mg Polyethylene Glycol (Polyethylene Glycol 3350 17 Gm Powd.Pack) 17 gm PO DAILY [facility] Last Admin: 07/24/25 10:22 Dose: Not Given Prednisone (Prednisone 20 Mg Tablet) 40 mg PO DAILY [facility] Stop: 07/25/25 23:55 Last Admin: 07/24/25 08:31 Dose: 40 mg Risperidone (Risperidone 1 Mg Tablet) 1 mg PO BID [facility] Last Admin: 07/24/25 08:30 Dose: 1 mg Tamsulosin HCl (Tamsulosin Hcl 0.4 Mg Capsule) 0.4 mg PO BEDTIME [facility] Last Admin: 07/23/25 22:06 Dose: 0.4 mg Thiamine HCl (Thiamine Hcl 100 Mg Tablet) 100 mg PO DAILY [facility] Last Admin: 07/24/25 08:30 Dose: 100 mg Tiotropium [place] (Tiotropium [place] 2.5 Mcg 1 Puff/2.5 Mcg Mist.Inhal) 2 puff INHALE RDAILY [facility] Last Admin: 07/24/25 10:23 Dose: 2 puff Tizanidine HCl (Tizanidine Hcl 4 Mg Tablet) 2 mg PO BEDTIME [facility] Last Admin: 07/23/25 21:55 Dose: 2 mg Tramadol HCl (Tramadol Hcl 50 Mg Tablet) 50 mg PO Q6H PRN PRN Reason: severe left hip pain Last Admin: 07/21/25 12:05 Dose: 50 mg Trazodone HCl (Trazodone Hcl 50 Mg Tablet) 50 mg PO BEDTIME MRX1 PRN PRN Reason: Insomnia Last Admin: 07/23/25 21:55 Dose: 50 mg Allergies Allergies Allergy/AdvReac Type Severity Reaction Status Date / Time Penicillins (PCN) AdvReac Unknown Verified 07/14/25 14:00 Assessment & Plan Assessment & Plan (1) RLL pneumonia: Status: Acute Code(s): J18.9 - Pneumonia, unspecified organism Plan Mr. Eden is a 75 year-old male who was initially brought to [facility] via EMS on [address] by police [place] was [place] the [place] inflicting laceration on left hand. No stitches required. He continued to self harm while in the ED. He reports he is hearing voices (reports male voice saying I want to see blood repeatedly), which then led to him acting on the voices thinking it may quiet them down. Although he endorses depressed mood in context of not having stable place to live and passive SI, he reports he does not want to but can't help if voices are ongoing. He reports he is not hearing voices now. We discussed risks, benefits and alternative treatment options. He agreed to start risperidone 1mg po BID. 07/19 continue tx. consult to hospitalist- left hip pain. no fall or injury. Updraft nebulizer as needed Patient with a history of asthma, not on any maintenance meds. Will start Spiriva 07/20: Patient found sitting on his bed with his feet on the floor and arms around his walker. He is irritable and tearful. He reports severe pain to his left hip. He rates his pain as 7/10 on the pain scale. Tramadol was increased to 50 mg Q6H as needed this morning. Patient repeatedly refused pain medication tramadol that his nurse offered at bedside. He eventually took the medication after intervention/education about his pain and treatment modalities by this provider. He denies anxiety or depression. He denies SI/HI/AH/VH. Continue current treatment regimen. PT consult made. 07/21: Reports 4/10 lower back and left hip pain. Cheerful and socializing with peers. Prednisone 40 mg daily x5 days ordered for pain. Continue current treatment regimen. Hortensia, Hospitalist notes she would order more imaging for musculoskeletal pain. 07/22/25: Meet with patient in the presence of scanning supervisor in sensory room. Patient reports bearable pain on left buttock area, rated pain 2/20. Report he has some happy tears today after talking to his granddaughter who is 5 years as she prays for him to be better to be home soon with family. Report mood and sleep/appetite are good. Denies anxiety/depression or safety concern. He says he would rather stay in [place] instead of returning to [place]. Report that he can stay with her granddaughter who is 48 y.o in [place]. Explained to patient that he may not get good benefits for health insurance as he has not been here in [place] in a good period of time. Report he has been here more than 3 months. Patient is aware of potential family meeting next week on Friday at 1300 virtually and discharge to follow after. VSs stable, no SOB, O2Sat this morning 92% but improved later on of the day. Ambulate with wheelchair. Visbile, sociall appropriately with peers and staff and attended groups. 07/23/25: Patient slept for 5 hours, medication compliant, no side effects. He is reasonable, social and appropriate. Reports singing he people's vehicles saw about the pig/pork meat. Denies safety concerns. He was not happy regarding the roommate who was snoring loudly, and was not quiet at night which interfere with his sleep. Encourage patient to to use ear plugs she sees if they are helpful. Blood pressure is fluctuated. We will continue to monitor. Ambulating with a walker. Pain is under control. 07/24/25: Patient slept through the night, was compliant with medications, but not compliant with diabetic protocol. Patient has not care for his diet, blood sugar continued to be high, received coverage. Nursing reported the patient was dancing yesterday but has a tantrum moment over food for dinner yesterday, he threw the walker away which was taken away from the patient for safety issues. Patient requests the walker, explained to patient reason why he can not get walker. He walked with normal steady gait. Reports the pain on the hip is improving. Denies safety concerns. Continued to confirm that he wants to stay in [place]. Reported that his granddaughter will come in in person to have a meeting this week. Denies depression or anxiety, sleep is improving. Changing from 5 to 15 minutes safety checks Patient educated on: medication risk/benefits and therapeutic strategies Informed Consent: understands Reason for continued inpatient stay Substantial Risk for: med/psych decompensation Time Spent With Patient Time: Total time managing care of this patient today ____ minutes.
[2025-07-24 16:16] LABS: Glucose, Whole Blood 360 mg/dL (60-115)
[2025-07-24] MEDS: Albuterol Sulfate 90 MCG 8 GM INHALER 2 PUFF INHALE (17:06)
[2025-07-24 19:48] VITALS: BP 167/71; PULSE 71; RESP 16; TEMP 36.4; O2SAT 96
[2025-07-24 19:58] LABS: Glucose, Whole Blood 486 mg/dL (60-115)
[2025-07-24] MEDS: Insulin Glargine,Hum.rec.anlog 100 UNIT/ML 10 ML VIAL 50 UNIT SUBCUT (21:18)
[2025-07-25 06:00] VITALS: BMI 40.0
[2025-07-25 06:46] LABS: Glucose, Whole Blood 235 mg/dL (60-115)
[2025-07-25 08:45] VITALS: BP 134/63; PULSE 69; RESP 16; TEMP 36.2; O2SAT 99
[2025-07-25] MEDS: Tiotropium Bromide 2.5 mcg 1 PUFF/2.5 MCG MIST.INHAL 2 PUFF INHALE (09:39)
[2025-07-25] MEDS: Metoprolol Succinate ER 50 MG TAB.ER.24H PO (09:40)
[2025-07-25] MEDS: Ferrous Sulfate 324 MG TABLET.DR PO ×3 (09:42→20:47)
[2025-07-25] MEDS: Magnesium Hydrox/Alum Hydrox 30 ML ORAL.SUSP PO (09:57)
[2025-07-25 11:16] LABS: Glucose, Whole Blood 396 mg/dL (60-115)
--- NOTE | 2025-07-25 12:11 | HO.PM.IMPN ---
Subjective Subjective Date of Service: 07/25/25 Interval History: Patient seen for follow up bilateral hip pain, PNA hyperglycemia. Patient denies any pain. Observed ambulating without any walker, gait steady. Patient's blood sugars have been elevated, he is currently finishing a Prednisone burst for severe hip pain today. Denies any shortness of breath or chest pain, breathing within normal limits. Reports improvement in his breathing since starting maintenance inhaler. No hypoxia. Continues on antibiotic therapy for pneumonia. He is more alert, appears comfortable. Review of Systems Denies any shortness of breath, chest pain, headaches, dysuria, abdominal pain or discomfort, nausea, vomiting or diarrhea. Denies chills, body aches, muscle aches, fatigue or weight loss. Physical Exam Exam: Exam: CONST: Alert and oriented, in NAD. Well nourished HEENT: Normocephalic, atraumatic, MMM, Eyes clear, Neck supple RESP: Lungs clear, RRR even and regular HEART:,RRR, S1, S2. No edema GI:Abdomen Soft NT, ND. + BS times four :Deferred SKIN: Warm dry and intact, no visible lesions or rashes NEURO:CN II-XII Intact bilaterally, Sensation intact. Speech clear PSYCH: Normal affect Vital Signs: Vital Signs: Last Vital Signs Temp 97.2 F 07/25/25 08:45 Pulse 69 07/25/25 08:45 Resp 16 07/25/25 08:45 BP 134/63 07/25/25 08:45 Pulse Ox 99 07/25/25 08:45 O2 Del Method Room Air 07/25/25 08:45 BMI result Body Mass Index 40.0 Objective Data Active Medications Acetaminophen (Acetaminophen 325 Mg Tablet) 650 mg PO Q6H PRN PRN Reason: Headache/Pain, Scale 1-10 Last Admin: 07/20/25 21:32 Dose: 650 mg Documented By: LILY Al Hydroxide/Mg Hydroxide (Magnesium Hydrox/Alum Hydrox 30 Ml Oral.Susp) 30 ml PO Q6H PRN PRN Reason: Heartburn/Nausea Last Admin: 07/25/25 09:57 Dose: 30 ml Documented By: HAL Albuterol Sulfate (Albuterol Sulfate 90 Mcg 8 Gm Inhaler) 2 puff INHALE RQ4H PRN PRN Reason: SOB/Wheezing Last Admin: 07/24/25 17:06 Dose: 2 puff Documented By: JACLYN Albuterol Sulfate (Albuterol Sulfate (0.083%) 2.5 Mg/3 Ml Vial.Neb) 2.5 mg INHALE Q6H PRN PRN Reason: Wheezing Aspirin (Aspirin 81 Mg Tab.Chew) 81 mg PO DAILY [facility] Last Admin: 07/25/25 09:42 Dose: 81 mg Documented By: HAL Atorvastatin Calcium (Atorvastatin Calcium 40 Mg Tablet) 40 mg PO BEDTIME [facility] Last Admin: 07/24/25 21:20 Dose: 40 mg Documented By: ITALO Benzocaine (Throat Lozenge, Medicated Lozenge) 1 lozenge MUCOUS MEM Q2H PRN PRN Reason: Sore Throat Last Admin: 07/23/25 22:10 Dose: 1 lozenge Documented By: ITALO Clopidogrel Bisulfate (Clopidogrel Bisulfate 75 Mg Tablet) 75 mg PO DAILY [facility] Last Admin: 07/25/25 09:41 Dose: 75 mg Documented By: HAL Cyanocobalamin (Cyanocobalamin (Vitamin B-12) 1,000 Mcg Tablet) 1,000 mcg PO DAILY [facility] Last Admin: 07/25/25 09:40 Dose: 1,000 mcg Documented By: HAL Empagliflozin (Empagliflozin 10 Mg Tablet) 10 mg PO DAILY [facility] Last Admin: 07/25/25 09:42 Dose: 10 mg Documented By: HAL Ergocalciferol (Ergocalciferol (Vitamin D2) 1,250 Mcg Capsule) 1,250 mcg PO Fr@0900 [facility] Stop: 09/09/25 09:01 Last Admin: 07/22/25 16:32 Dose: Not Given Documented By: VICTORINO Non-Admin Reason: Med Not Available Ferrous Sulfate (Ferrous Sulfate 324 Mg Tablet.) 324 mg PO TID [facility] Last Admin: 07/25/25 09:42 Dose: 324 mg Documented By: HAL Fluticasone Propionate (Fluticasone Propionate Nasal 16 Gm [place]) 1 spray NOSTRIL-B DAILY [facility] Last Admin: 07/25/25 09:39 Dose: 1 spray Documented By: HAL Furosemide (Furosemide 40 Mg Tablet) 40 mg PO DAILY [facility] On Hold: 07/20/25 09:00 Furosemide (Furosemide 20 Mg Tablet) 20 mg PO DAILY [facility]; Protocol Last Admin: 07/25/25 09:40 Dose: 20 mg Documented By: HAL Gabapentin (Gabapentin 600 Mg Tablet) 600 mg PO TID [facility] Last Admin: 07/25/25 09:41 Dose: 600 mg Documented By: HAL Insulin Glargine (Insulin Glargine,Hum.Rec.Anlog 100 Unit/Ml 10 Ml Vial) 50 unit SUBCUT BEDTIME [facility] Last Admin: 07/24/25 21:18 Dose: 50 unit Documented By: ITALO Insulin Human Lispro (Insulin Lispro 100 Unit/Ml 3 Ml Vial) 0 unit SUBCUT QIDACHS [facility]; Protocol Last Admin: 07/25/25 11:48 Dose: 10 unit Documented By: HAL Levofloxacin (Levofloxacin 750 Mg Tablet) 750 mg PO Q24H [facility] Stop: 07/29/25 13:59 Last Admin: 07/24/25 16:03 Dose: 750 mg Documented By: JACLYN Lorazepam (Lorazepam 0.5 Mg Tablet) 0.5 mg PO BID PRN PRN Reason: Anxiety Last Admin: 07/23/25 21:53 Dose: 0.5 mg Documented By: ITALO Losartan Potassium (Losartan Potassium 25 Mg Tablet) 25 mg PO DAILY [facility] On Hold: 07/17/25 09:33 Last Admin: 07/17/25 08:19 Dose: 25 mg Documented By: RUBEN Magnesium Hydroxide (Milk Of Magnesia 30 Ml Oral.Susp) 30 ml PO DAILY PRN PRN Reason: Constipation Melatonin (Melatonin 3 Mg Tablet) 6 mg PO BEDTIME [facility] Last Admin: 07/24/25 21:19 Dose: 6 mg Documented By: ITALO Metoprolol Succinate (Metoprolol Succinate Er 50 Mg Tab.Er.24h) 50 mg PO DAILY [facility] Last Admin: 07/25/25 09:40 Dose: 50 mg Documented By: HAL Montelukast Sodium (Montelukast Sodium 10 Mg Tablet) 10 mg PO BEDTIME [facility] Last Admin: 07/24/25 21:20 Dose: 10 mg Documented By: ITALO Pantoprazole Sodium (Pantoprazole Sodium 20 Mg Tablet.Dr) 40 mg PO DAILY [facility] Last Admin: 07/25/25 09:39 Dose: 40 mg Documented By: HAL Polyethylene Glycol (Polyethylene Glycol 3350 17 Gm Powd.Pack) 17 gm PO DAILY [facility] Last Admin: 07/25/25 09:39 Dose: Not Given Documented By: HAL Non-Admin Reason: Patient Refused Prednisone (Prednisone 20 Mg Tablet) 40 mg PO DAILY [facility] Stop: 07/25/25 23:55 Last Admin: 07/25/25 09:42 Dose: 40 mg Documented By: HAL Risperidone (Risperidone 1 Mg Tablet) 1 mg PO BID [facility] Last Admin: 07/25/25 09:41 Dose: 1 mg Documented By: HAL Tamsulosin HCl (Tamsulosin Hcl 0.4 Mg Capsule) 0.4 mg PO BEDTIME [facility] Last Admin: 07/24/25 21:21 Dose: 0.4 mg Documented By: ITALO Thiamine HCl (Thiamine Hcl 100 Mg Tablet) 100 mg PO DAILY [facility] Last Admin: 07/25/25 09:41 Dose: 100 mg Documented By: HAL Tiotropium [place] (Tiotropium [place] 2.5 Mcg 1 Puff/2.5 Mcg Mist.Inhal) 2 puff INHALE RDAILY [facility] Last Admin: 07/25/25 09:39 Dose: 2 puff Documented By: HAL Tizanidine HCl (Tizanidine Hcl 4 Mg Tablet) 2 mg PO BEDTIME [facility] Last Admin: 07/24/25 21:20 Dose: 2 mg Documented By: ITALO Tramadol HCl (Tramadol Hcl 50 Mg Tablet) 50 mg PO Q6H PRN PRN Reason: severe left hip pain Last Admin: 07/21/25 12:05 Dose: 50 mg Documented By: SASHA Trazodone HCl (Trazodone Hcl 50 Mg Tablet) 50 mg PO BEDTIME MRX1 PRN PRN Reason: Insomnia Last Admin: 07/23/25 21:55 Dose: 50 mg Documented By: ITALO Labs 07/21/25 13:39 Labs: Laboratory Results - last 24 hr 07/24/25 07/24/25 07/25/25 16:12 19:54 06:43 POC Glucose 360 H* 486 H* 235 H 07/25/25 11:13 POC Glucose 396 H* Assessment and Plan (1) RLL pneumonia: Status: Acute Plan 75-year-old male with past medical history listed below is admitted to inpatient [facility] for continued care after he presented to the hospital with self-harming behaviors and depression. Depression with self harming behavior Per psych team Bilateral hip pain-resolved Patient does not have any radiculopathy, numbness or tingling in his legs. He is ambulating at baseline without any antalgic gait, not using a walker. Denying any hip pain. CKD 3B Stable. Avoid nephrotoxins. Right lower lobe pneumonia Noted on chest x-ray Continue Levaquin 750 daily for 5 days due to PCN allergy Updraft nebulizer as needed Patient with a history of asthma, not on any maintenance meds. Continue Spiriva Improving Laceration to dorsum of left hand and fingers/scratch abrasions to calf. Continue local wound care Wound care following. No evidence of infection Coronary artery disease/history of stroke/CHF/hypertension Continue aspirin, Plavix, atorvastatin and Jardiance. Continue metoprolol 50 mg daily extended release Continue losartan at 25 mg daily, blood pressure is stable Continue Lasix twice daily at reduced dose in pm. Daily weights. Weight stable. 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 Add glargine 10 units in the morning. Recent A1c 9.1 Can consider starting Trulicity outpatient Continue gabapentin 600 t.i.d. Blood sugars elevated due to prednisone- last dose today Chronic kidney disease Stage 3 B Baseline 1.2 Avoid nephrotoxins Continue to monitor-nephrology consult pending BPH Continue tamsulosin GERD Continue Protonix Vitamin-D deficiency Continue vitamin-D daily Thank you for allowing me to participate in the care of this patient. Will follow with you, please notify medical provider with any changes in condition or concerns. Quality Stroke Does the patient have a stroke diagnosis?: No VTE Prior VTE?: No VTE Risk Level:: Medical - low VTE Device Contraindication: Treatment Not Indicated VTE Drug Contraindication: N/A - Med Ordered
[2025-07-25 16:23] LABS: Glucose, Whole Blood 448 mg/dL (60-115)
--- NOTE | 2025-07-25 19:36 | PC.NURSE ---
Pt blood sugar was 396 at lunch. Provider Lupe Doherty was notified and advised 10 units of insulin Lispro to be given. Pt blood sugar was 448 at dinner. Provider Lupe Doherty notified advised 14 units of insulin be given.
[2025-07-25 20:00] VITALS: BP 183/76; PULSE 72; RESP 16; TEMP 36.2; O2SAT 99
[2025-07-25 20:27] LABS: Glucose, Whole Blood 575 mg/dL (60-115)
[2025-07-25] MEDS: Insulin Glargine,Hum.rec.anlog 100 UNIT/ML 10 ML VIAL 50 UNIT SUBCUT (20:46)
--- NOTE | 2025-07-25 20:56 | HO.PSYCHPN ---
Subjective Subjective Date of Service: 07/25/25 Reason For Visit: Depression Subjective Notes: Conditional Voluntary Healthcare Proxy: Yes Guardianship: No Medical Problems Affecting Mental Status: No Interim History: Medical record and nursing notes reviewed; case discussed during rounds with team/nursing staff, and met with patient for supportive therapy/psychoeducation, as well as medication management. Patient slept well, compliant with medication. Denies side effects. POC remains high, asymptomatic, received coverage per Protocol with extra 4 unit of Insulin prior dinner. Denies pain, walking with steady gait. Denies anxiety/depression. Denies SI/SIB/HI/AVH. Patient reports that [place] has been [place] this [place]. Confirm he wants to stay in [place]. Do not want to return to [place]. Per EDITH, meeting with family went well- virtual. Patient will return to [place]. SW will work on aftercare plan and FLU appointment. Medication Compliance: Yes Side effects from medications: No Attending Groups: Yes Review of Systems Acute medical concerns: No Medical Review of Systems: unchanged Review of Systems Review of Systems Const : no body aches, no chills, no excessive sweating and no fatigue Eyes: no blurry vision and no change in vision ENT: no bleeding gums and no change in voice, no dizziness Card: no chest pain, ?no shortness of breath, no orthopnea, no PND Resp: no cough, ?no excessive phlegm production, no SOB GI: no abdominal pain and no nausea, no vomiting : no hematuria, no urinary frequency and no difficulty voiding Musc: no abnormal gait, no bone pain Neuro: no ?abnormal movements, no weakness,and +behavioral changes Psych: no behavioral changes and no change in appetite Endo: no change in body appearance, no cold intolerance, Yes all other systems are reviewed and are negative Mental Status Exam Mental Status Exam Narrative: Appearance: Casually dressed, adequate hygiene Behavior: Calm cooperative throughout the interview. Cheerful. Appropriate eye contact, no signs of psychomotor agitation or psychomotor retardation present Speech: Normal volume and prosody Thought process: Linear Thought content: WNL. organized. Mood: Good Affect: mood-congruent SI:denies HI:denies VH/AH:none Delusions: None Insight/judgment: Improved Memory/cog: Alert and oriented. grossly intact to conversational testing Diagnostics Vital Signs (24Hr): Vital Signs - 24 hr 07/25/25 08:45 Temperature 97.2 F Pulse Rate 69 Respiratory Rate 16 Blood Pressure 134/63 Pulse Oximetry 99 Oxygen Delivery Method Room Air BMI result Body Mass Index 40.0 Labs 07/21/25 13:39 Labs: Laboratory Results - last 48 hr 07/23/25 07/24/25 07/24/25 21:01 06:07 11:07 POC Glucose 459 H* 257 H 280 H 07/24/25 07/24/25 07/25/25 16:12 19:54 06:43 POC Glucose 360 H* 486 H* 235 H 07/25/25 07/25/25 07/25/25 11:13 16:18 20:22 POC Glucose 396 H* 448 H* 575 H* Imaging Radiology Impressions: ITS Impressions Chest X-Ray 07/15/25 15:24 IMPRESSION: Clear lungs. Electronically signed by: Brice Bunch MD 07/15/2025 03:40 PM EDT RP Hip/Pelvis X-Ray 07/19/25 11:20 IMPRESSION: Patchy increased sclerosis which may be due to renal osteodystrophy. Other etiologies including metastatic disease are not excluded. Clinical correlation is recommended. Electronically signed by: Brice Bunch MD 07/19/2025 11:49 AM EDT RP Lumbar Spine X-Ray 07/19/25 11:20 IMPRESSION: Mild degenerative disc disease. Electronically signed by: Brice Bunch MD 07/19/2025 11:50 AM EDT RP Chest X-Ray 07/19/25 11:33 IMPRESSION: Right lower lobe pneumonia. Follow-up is recommended to document resolution. Electronically signed by: Brice Bunch MD 07/19/2025 11:44 AM EDT RP Abdomen/Pelvis CT 07/21/25 15:26 IMPRESSION: Lobulated fat-containing umbilical hernia. Atelectasis versus airspace disease, lung bases. Abundant stool without intestinal obstruction pattern. Simple cyst, left kidney. Degenerative changes both hips with questionable trochanter bursitis. Multilevel thoracolumbar spondylosis resulting in central spinal canal stenosis. Please for to the CT lumbar spine. Fleischner guidelines were followed. 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 Mild narrowing of neural foramina bilaterally at along the lumbar spinal canal. The findings are slightly worse on the right at the T12-L1 disc level there is a right facet joint hypertrophy extending into the neural foramina and a small bony spur extending into right lateral recess at the L2-3 disc level. No abnormal enhancement seen within the lower dorsal or lumbar spinal canal or the region of conus medullaris. If patient has persistent radiculopathy and numbness and tingling in the legs further evaluation with neurology may be helpful. Electronically signed by: Gabo Bush MD 07/22/2025 07:26 AM EDT RP Medications Medications Current Medications Acetaminophen (Acetaminophen 325 Mg Tablet) 650 mg PO Q6H PRN PRN Reason: Headache/Pain, Scale 1-10 Last Admin: 07/20/25 21:32 Dose: 650 mg Al Hydroxide/Mg Hydroxide (Magnesium Hydrox/Alum Hydrox 30 Ml Oral.Susp) 30 ml PO Q6H PRN PRN Reason: Heartburn/Nausea Last Admin: 07/25/25 09:57 Dose: 30 ml Albuterol Sulfate (Albuterol Sulfate 90 Mcg 8 Gm Inhaler) 2 puff INHALE RQ4H PRN PRN Reason: SOB/Wheezing Last Admin: 07/24/25 17:06 Dose: 2 puff Albuterol Sulfate (Albuterol Sulfate (0.083%) 2.5 Mg/3 Ml Vial.Neb) 2.5 mg INHALE Q6H PRN PRN Reason: Wheezing Aspirin (Aspirin 81 Mg Tab.Chew) 81 mg PO DAILY [facility] Last Admin: 07/25/25 09:42 Dose: 81 mg Atorvastatin Calcium (Atorvastatin Calcium 40 Mg Tablet) 40 mg PO BEDTIME MARCIA Last Admin: 07/25/25 20:48 Dose: 40 mg Benzocaine (Throat Lozenge, Medicated Lozenge) 1 lozenge MUCOUS MEM Q2H PRN PRN Reason: Sore Throat Last Admin: 07/23/25 22:10 Dose: 1 lozenge Clopidogrel Bisulfate (Clopidogrel Bisulfate 75 Mg Tablet) 75 mg PO DAILY [facility] Last Admin: 07/25/25 09:41 Dose: 75 mg Cyanocobalamin (Cyanocobalamin (Vitamin B-12) 1,000 Mcg Tablet) 1,000 mcg PO DAILY [facility] Last Admin: 07/25/25 09:40 Dose: 1,000 mcg Empagliflozin (Empagliflozin 10 Mg Tablet) 10 mg PO DAILY [facility] Last Admin: 07/25/25 09:42 Dose: 10 mg Ergocalciferol (Ergocalciferol (Vitamin D2) 1,250 Mcg Capsule) 1,250 mcg PO Fr@0900 [facility] Stop: 09/09/25 09:01 Last Admin: 07/22/25 16:32 Dose: Not Given Ferrous Sulfate (Ferrous Sulfate 324 Mg Tablet.Dr) 324 mg PO TID [facility] Last Admin: 07/25/25 20:47 Dose: 324 mg Fluticasone Propionate (Fluticasone Propionate Nasal 16 Gm [place]) 1 spray NOSTRIL-B DAILY [facility] Last Admin: 07/25/25 09:39 Dose: 1 spray Furosemide (Furosemide 40 Mg Tablet) 40 mg PO DAILY [facility] On Hold: 07/20/25 09:00 Furosemide (Furosemide 20 Mg Tablet) 20 mg PO DAILY [facility]; Protocol Last Admin: 07/25/25 09:40 Dose: 20 mg Gabapentin (Gabapentin 600 Mg Tablet) 600 mg PO TID [facility] Last Admin: 07/25/25 20:49 Dose: 600 mg Insulin Glargine (Insulin Glargine,Hum.Rec.Anlog 100 Unit/Ml 10 Ml Vial) 50 unit SUBCUT BEDTIME [facility] Last Admin: 07/25/25 20:46 Dose: 50 unit Insulin Glargine (Insulin Glargine,Hum.Rec.Anlog 100 Unit/Ml 10 Ml Vial) 10 unit SUBCUT DAILY [facility] Insulin Human Lispro (Insulin Lispro 100 Unit/Ml 3 Ml Vial) 0 unit SUBCUT QIDACHS [facility]; Protocol Last Admin: 07/25/25 20:46 Dose: 10 unit Levofloxacin (Levofloxacin 750 Mg Tablet) 750 mg PO Q24H [facility] Stop: 07/29/25 13:59 Last Admin: 07/25/25 14:17 Dose: 750 mg Lorazepam (Lorazepam 0.5 Mg Tablet) 0.5 mg PO BID PRN PRN Reason: Anxiety Last Admin: 07/23/25 21:53 Dose: 0.5 mg Losartan Potassium (Losartan Potassium 25 Mg Tablet) 25 mg PO DAILY [facility] On Hold: 07/17/25 09:33 Last Admin: 07/17/25 08:19 Dose: 25 mg Magnesium Hydroxide (Milk Of Magnesia 30 Ml Oral.Susp) 30 ml PO DAILY PRN PRN Reason: Constipation Melatonin (Melatonin 3 Mg Tablet) 6 mg PO BEDTIME [facility] Last Admin: 07/25/25 20:49 Dose: 6 mg Metoprolol Succinate (Metoprolol Succinate Er 50 Mg Tab.Er.24h) 50 mg PO DAILY [facility] Last Admin: 07/25/25 09:40 Dose: 50 mg Montelukast Sodium (Montelukast Sodium 10 Mg Tablet) 10 mg PO BEDTIME [facility] Last Admin: 07/25/25 20:49 Dose: 10 mg Pantoprazole Sodium (Pantoprazole Sodium 20 Mg Tablet.Dr) 40 mg PO DAILY [facility] Last Admin: 07/25/25 09:39 Dose: 40 mg Polyethylene Glycol (Polyethylene Glycol 3350 17 Gm Powd.Pack) 17 gm PO DAILY [facility] Last Admin: 07/25/25 09:39 Dose: Not Given Prednisone (Prednisone 20 Mg Tablet) 40 mg PO DAILY [facility] Stop: 07/25/25 23:55 Last Admin: 07/25/25 09:42 Dose: 40 mg Risperidone (Risperidone 1 Mg Tablet) 1 mg PO BID [facility] Last Admin: 07/25/25 20:48 Dose: 1 mg Tamsulosin HCl (Tamsulosin Hcl 0.4 Mg Capsule) 0.4 mg PO BEDTIME [facility] Last Admin: 07/25/25 20:47 Dose: 0.4 mg Thiamine HCl (Thiamine Hcl 100 Mg Tablet) 100 mg PO DAILY [facility] Last Admin: 07/25/25 09:41 Dose: 100 mg Tiotropium [place] (Tiotropium [place] 2.5 Mcg 1 Puff/2.5 Mcg Mist.Inhal) 2 puff INHALE RDAILY [facility] Last Admin: 07/25/25 09:39 Dose: 2 puff Tizanidine HCl (Tizanidine Hcl 4 Mg Tablet) 2 mg PO BEDTIME [facility] Last Admin: 07/25/25 20:47 Dose: 2 mg Tramadol HCl (Tramadol Hcl 50 Mg Tablet) 50 mg PO Q6H PRN PRN Reason: severe left hip pain Last Admin: 07/21/25 12:05 Dose: 50 mg Trazodone HCl (Trazodone Hcl 50 Mg Tablet) 50 mg PO BEDTIME MRX1 PRN PRN Reason: Insomnia Last Admin: 07/23/25 21:55 Dose: 50 mg Allergies Allergies Allergy/AdvReac Type Severity Reaction Status Date / Time Penicillins (PCN) AdvReac Unknown Verified 07/14/25 14:00 Assessment & Plan Assessment & Plan (1) RLL pneumonia: Status: Acute Code(s): J18.9 - Pneumonia, unspecified organism Plan 07/30/25: Patient slept well, compliant with medication. Denies side effects. POC remains high, asymptomatic, received coverage per Protocol with extra 4 unit of Insulin prior dinner. Denies pain, walking with steady gait. Denies anxiety/depression. Denies SI/SIB/HI/AVH. Patient reports that [place] has been [place] this [place]. Confirm he wants to stay in [place]. Do not want to return to [place]. Per , meeting with family went well- virtual. Patient will return to [place]. will work on aftercare plan and FLU appointment. Bilateral hip pain-resolved Patient does not have any radiculopathy, numbness or tingling in his legs. He is ambulating at baseline without any antalgic gait, not using a walker. Denying any hip pain. CKD 3B Stable. Avoid nephrotoxins. Right lower lobe pneumonia Noted on chest x-ray Continue Levaquin 750 daily for 5 days due to PCN allergy Updraft nebulizer as needed Patient with a history of asthma, not on any maintenance meds. Continue Spiriva Improving Laceration to dorsum of left hand and fingers/scratch abrasions to calf. Continue local wound care Wound care following. No evidence of infection Coronary artery disease/history of stroke/CHF/hypertension Continue aspirin, Plavix, atorvastatin and Jardiance. Continue metoprolol 50 mg daily extended release Continue losartan at 25 mg daily, blood pressure is stable Continue Lasix twice daily at reduced dose in pm. Daily weights. Weight stable. 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 Add glargine 10 units in the morning. Recent A1c 9.1 [facility] Continue gabapentin 600 t.i.d. Blood sugars elevated due to prednisone- last dose today Chronic kidney disease Stage 3 B Baseline 1.2 Avoid nephrotoxins Continue to monitor-nephrology consult pending BPH Continue tamsulosin GERD Continue Protonix Vitamin-D deficiency Continue vitamin-D daily Patient educated on: medication risk/benefits and therapeutic strategies Informed Consent: understands Reason for continued inpatient stay Substantial Risk for: med/psych decompensation Time Spent With Patient Time: Total time managing care of this patient today ____ minutes.
--- NOTE | 2025-07-25 21:07 | P.PNPSI_ITS ---
Subjective Subjective Date of Service: 07/25/25 Reason For Visit: Depression Subjective Notes: Conditional Voluntary Healthcare Proxy: Yes Guardianship: No Medical Problems Affecting Mental Status: No Interim History: Medical record and nursing notes reviewed; case discussed during rounds with team/nursing staff, and met with patient for supportive therapy/psychoeducation, as well as medication management. Patient slept well, compliant with medication. Denies side effects. POC remains high, asymptomatic, received coverage per Protocol with extra 4 unit of Insulin prior dinner. Denies pain, walking with steady gait. Denies anxiety/depression. Denies SI/SIB/HI/AVH. Patient reports that [place] has been in this country [place]. Confirm he wants to stay in [place]. Do not want to return to [place]. Per EDITH, meeting with family went well- virtual. Patient will return to [place]. SW will work on aftercare plan and FLU appointment. Medication Compliance: Yes Side effects from medications: No (possible blood sugar elevated d/t prednisone ) Attending Groups: Yes Review of Systems Acute medical concerns: No Medical Review of Systems: unchanged Review of Systems Review of Systems Const : no body aches, no chills, no excessive sweating and no fatigue Eyes: no blurry vision and no change in vision ENT: no bleeding gums and no change in voice, no dizziness Card: no chest pain, ?no shortness of breath, no orthopnea, no PND Resp: no cough, ?no excessive phlegm production, no SOB GI: no abdominal pain and no nausea, no vomiting : no hematuria, no urinary frequency and no difficulty voiding Musc: no abnormal gait, no bone pain Neuro: no ?abnormal movements, no weakness,and +behavioral changes Psych: no behavioral changes and no change in appetite Endo: no change in body appearance, no cold intolerance, Yes all other systems are reviewed and are negative Mental Status Exam Mental Status Exam Narrative: Appearance: Casually dressed, adequate hygiene Behavior: Calm cooperative throughout the interview. Cheerful. Appropriate eye contact, no signs of psychomotor agitation or psychomotor retardation present Speech: Normal volume and prosody Thought process: Linear Thought content: WNL. organized. Mood: Good Affect: mood-congruent SI:denies HI:denies VH/AH:none Delusions: None Insight/judgment: Improved Memory/cog: Alert and oriented. grossly intact to conversational testing Diagnostics Vital Signs (24Hr): Vital Signs - 24 hr 10/20/25 08:45 Temperature 97.2 F Pulse Rate 69 Respiratory Rate 16 Blood Pressure 134/63 Pulse Oximetry 99 Oxygen Delivery Method Room Air BMI result Body Mass Index 40.0 Labs 07/21/25 13:39 Labs: Laboratory Results - last 48 hr 07/23/25 07/24/25 07/24/25 21:01 06:07 11:07 POC Glucose 459 H* 257 H 280 H 07/24/25 07/24/25 07/25/25 16:12 19:54 06:43 POC Glucose 360 H* 486 H* 235 H 07/25/25 07/25/25 07/25/25 11:13 16:18 20:22 POC Glucose 396 H* 448 H* 575 H* Imaging Radiology Impressions: ITS Impressions Chest X-Ray 07/15/25 15:24 IMPRESSION: Clear lungs. Electronically signed by: Brice Bunch MD 07/15/2025 03:40 PM EDT RP Hip/Pelvis X-Ray 07/19/25 11:20 IMPRESSION: Patchy increased sclerosis which may be due to renal osteodystrophy. Other etiologies including metastatic disease are not excluded. Clinical correlation is recommended. Electronically signed by: Brice Bunch MD 07/19/2025 11:49 AM EDT RP Lumbar Spine X-Ray 07/19/25 11:20 IMPRESSION: Mild degenerative disc disease. Electronically signed by: Brice Bunch MD 07/19/2025 11:50 AM EDT RP Chest X-Ray 07/19/25 11:33 IMPRESSION: Right lower lobe pneumonia. Follow-up is recommended to document resolution. Electronically signed by: Brice Bunch MD 07/19/2025 11:44 AM EDT RP Abdomen/Pelvis CT 07/21/25 15:26 IMPRESSION: Lobulated fat-containing umbilical hernia. Atelectasis versus airspace disease, lung bases. Abundant stool without intestinal obstruction pattern. Simple cyst, left kidney. Degenerative changes both hips with questionable trochanter bursitis. Multilevel thoracolumbar spondylosis resulting in central spinal canal stenosis. Please for to the CT lumbar spine. Fleischner guidelines were followed. 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 Mild narrowing of neural foramina bilaterally at along the lumbar spinal canal. The findings are slightly worse on the right at the T12-L1 disc level there is a right facet joint hypertrophy extending into the neural foramina and a small bony spur extending into right lateral recess at the L2-3 disc level. No abnormal enhancement seen within the lower dorsal or lumbar spinal canal or the region of conus medullaris. If patient has persistent radiculopathy and numbness and tingling in the legs further evaluation with neurology may be helpful. Electronically signed by: Gabo Bush MD 07/22/2025 07:26 AM EDT RP Medications Medications Current Medications Acetaminophen (Acetaminophen 325 Mg Tablet) 650 mg PO Q6H PRN PRN Reason: Headache/Pain, Scale 1-10 Last Admin: 07/20/25 21:32 Dose: 650 mg Al Hydroxide/Mg Hydroxide (Magnesium Hydrox/Alum Hydrox 30 Ml Oral.Susp) 30 ml PO Q6H PRN PRN Reason: Heartburn/Nausea Last Admin: 07/25/25 09:57 Dose: 30 ml Albuterol Sulfate (Albuterol Sulfate 90 Mcg 8 Gm Inhaler) 2 puff INHALE RQ4H PRN PRN Reason: SOB/Wheezing Last Admin: 07/24/25 17:06 Dose: 2 puff Albuterol Sulfate (Albuterol Sulfate (0.083%) 2.5 Mg/3 Ml Vial.Neb) 2.5 mg INHALE Q6H PRN PRN Reason: Wheezing Aspirin (Aspirin 81 Mg Tab.Chew) 81 mg PO DAILY MARCIA Last Admin: 07/25/25 09:42 Dose: 81 mg Atorvastatin Calcium (Atorvastatin Calcium 40 Mg Tablet) 40 mg PO BEDTIME MARCIA Last Admin: 07/25/25 20:48 Dose: 40 mg Benzocaine (Throat Lozenge, Medicated Lozenge) 1 lozenge MUCOUS MEM Q2H PRN PRN Reason: Sore Throat Last Admin: 07/23/25 22:10 Dose: 1 lozenge Clopidogrel Bisulfate (Clopidogrel Bisulfate 75 Mg Tablet) 75 mg PO DAILY [facility] Last Admin: 07/25/25 09:41 Dose: 75 mg Cyanocobalamin (Cyanocobalamin (Vitamin B-12) 1,000 Mcg Tablet) 1,000 mcg PO DAILY [facility] Last Admin: 07/25/25 09:40 Dose: 1,000 mcg Empagliflozin (Empagliflozin 10 Mg Tablet) 10 mg PO DAILY [facility] Last Admin: 07/25/25 09:42 Dose: 10 mg Ergocalciferol (Ergocalciferol (Vitamin D2) 1,250 Mcg Capsule) 1,250 mcg PO Fr@0900 [facility] Stop: 09/09/25 09:01 Last Admin: 07/22/25 16:32 Dose: Not Given Ferrous Sulfate (Ferrous Sulfate 324 Mg Tablet.Dr) 324 mg PO TID [facility] Last Admin: 07/25/25 20:47 Dose: 324 mg Fluticasone Propionate (Fluticasone Propionate Nasal 16 Gm Purdum) 1 spray NOSTRIL-B DAILY [facility] Last Admin: 07/25/25 09:39 Dose: 1 spray Furosemide (Furosemide 40 Mg Tablet) 40 mg PO DAILY MARCIA On Hold: 07/20/25 09:00 Furosemide (Furosemide 20 Mg Tablet) 20 mg PO DAILY [facility]; Protocol Last Admin: 07/25/25 09:40 Dose: 20 mg Gabapentin (Gabapentin 600 Mg Tablet) 600 mg PO TID [facility] Last Admin: 07/25/25 20:49 Dose: 600 mg Insulin Glargine (Insulin Glargine,Hum.Rec.Anlog 100 Unit/Ml 10 Ml Vial) 50 unit SUBCUT BEDTIME [facility] Last Admin: 07/25/25 20:46 Dose: 50 unit Insulin Glargine (Insulin Glargine,Hum.Rec.Anlog 100 Unit/Ml 10 Ml Vial) 10 unit SUBCUT DAILY [facility] Insulin Human Lispro (Insulin Lispro 100 Unit/Ml 3 Ml Vial) 0 unit SUBCUT QIDACHS [facility]; Protocol Last Admin: 07/25/25 20:46 Dose: 10 unit Levofloxacin (Levofloxacin 750 Mg Tablet) 750 mg PO Q24H [facility] Stop: 07/29/25 13:59 Last Admin: 07/25/25 14:17 Dose: 750 mg Lorazepam (Lorazepam 0.5 Mg Tablet) 0.5 mg PO BID PRN PRN Reason: Anxiety Last Admin: 07/23/25 21:53 Dose: 0.5 mg Losartan Potassium (Losartan Potassium 25 Mg Tablet) 25 mg PO DAILY [facility] On Hold: 07/17/25 09:33 Last Admin: 07/17/25 08:19 Dose: 25 mg Magnesium Hydroxide (Milk Of Magnesia 30 Ml Oral.Susp) 30 ml PO DAILY PRN PRN Reason: Constipation Melatonin (Melatonin 3 Mg Tablet) 6 mg PO BEDTIME [facility] Last Admin: 07/25/25 20:49 Dose: 6 mg Metoprolol Succinate (Metoprolol Succinate Er 50 Mg Tab.Er.24h) 50 mg PO DAILY [facility] Last Admin: 07/25/25 09:40 Dose: 50 mg Montelukast Sodium (Montelukast Sodium 10 Mg Tablet) 10 mg PO BEDTIME [facility] Last Admin: 07/25/25 20:49 Dose: 10 mg Pantoprazole Sodium (Pantoprazole Sodium 20 Mg Tablet.Dr) 40 mg PO DAILY [facility] Last Admin: 07/25/25 09:39 Dose: 40 mg Polyethylene Glycol (Polyethylene Glycol 3350 17 Gm Powd.Pack) 17 gm PO DAILY [facility] Last Admin: 07/25/25 09:39 Dose: Not Given Prednisone (Prednisone 20 Mg Tablet) 40 mg PO DAILY [facility] Stop: 07/25/25 23:55 Last Admin: 07/25/25 09:42 Dose: 40 mg Risperidone (Risperidone 1 Mg Tablet) 1 mg PO BID [facility] Last Admin: 07/25/25 20:48 Dose: 1 mg Tamsulosin HCl (Tamsulosin Hcl 0.4 Mg Capsule) 0.4 mg PO BEDTIME [facility] Last Admin: 07/25/25 20:47 Dose: 0.4 mg Thiamine HCl (Thiamine Hcl 100 Mg Tablet) 100 mg PO DAILY [facility] Last Admin: 07/25/25 09:41 Dose: 100 mg Tiotropium [place] (Tiotropium [place] 2.5 Mcg 1 Puff/2.5 Mcg Mist.Inhal) 2 puff INHALE RDAILY [facility] Last Admin: 07/25/25 09:39 Dose: 2 puff Tizanidine HCl (Tizanidine Hcl 4 Mg Tablet) 2 mg PO BEDTIME [facility] Last Admin: 07/25/25 20:47 Dose: 2 mg Tramadol HCl (Tramadol Hcl 50 Mg Tablet) 50 mg PO Q6H PRN PRN Reason: severe left hip pain Last Admin: 07/21/25 12:05 Dose: 50 mg Trazodone HCl (Trazodone Hcl 50 Mg Tablet) 50 mg PO BEDTIME MRX1 PRN PRN Reason: Insomnia Last Admin: 07/23/25 21:55 Dose: 50 mg Allergies Allergies Allergy/AdvReac Type Severity Reaction Status Date / Time Penicillins (PCN) AdvReac Unknown Verified 07/14/25 14:00 Assessment & Plan Assessment & Plan (1) RLL pneumonia: Status: Acute Code(s): J18.9 - Pneumonia, unspecified organism Plan Mr. Eden is a 75 year-old male who was initially brought to [facility] via EMS on [address] by police [place] was [place] the park inflicting laceration on left hand. No stitches required. He continued to self harm while in the ED. He reports he is hearing voices (reports male voice saying I want to see blood repeatedly), which then led to him acting on the voices thinking it may quiet them down. Although he endorses depressed mood in context of not having stable place to live and passive SI, he reports he does not want to but can't help if voices are ongoing. He reports he is not hearing voices now. We discussed risks, benefits and alternative treatment options. He agreed to start risperidone 1mg po BID. Hospital course: 07/19 continue tx. consult to hospitalist- left hip pain. no fall or injury. Updraft nebulizer as needed Patient with a history of asthma, not on any maintenance meds. Will start Spiriva 07/20: Patient found sitting on his bed with his feet on the floor and arms around his walker. He is irritable and tearful. He reports severe pain to his left hip. He rates his pain as 7/10 on the pain scale. Tramadol was increased to 50 mg Q6H as needed this morning. Patient repeatedly refused pain medication tramadol that his nurse offered at bedside. He eventually took the medication after intervention/education about his pain and treatment modalities by this provider. He denies anxiety or depression. He denies SI/HI/AH/VH. Continue current treatment regimen. PT consult made. 07/21: Reports 4/10 lower back and left hip pain. Cheerful and socializing with peers. Prednisone 40 mg daily x5 days ordered for pain. Continue current treatment regimen. Hortensia, Hospitalist notes she would order more imaging for musculoskeletal pain. 07/22/25: Meet with patient in the presence of director targeted marketing in sensory room. Patient reports bearable pain on left buttock area, rated pain 2/20. Report he has some happy tears today after talking to his granddaughter who is 5 years as she prays for him to be better to be home soon with family. Report mood and sleep/appetite are good. Denies anxiety/depression or safety concern. He says he would rather stay in [place] instead of returning to [place]. Report that he can stay with her granddaughter who is 48 y.o in [place]. Explained to patient that he may not get good benefits for health insurance as [place] been [place] in a good period of time. Report he has been here more than 3 months. Patient is aware of potential family meeting next week on Friday at 1300 virtually and discharge to follow after. VSs stable, no SOB, O2Sat this morning 92% but improved later on of the day. Ambulate with wheelchair. social Laml appropriately with peers and staff and attended groups. 07/23/25: Patient slept for 5 hours, medication compliant, no side effects. He is reasonable, social and appropriate. Reports singing he people's vehicles saw about the pig/pork meat. Denies safety concerns. He was not happy regarding the roommate who was snoring loudly, and was not quiet at night which interfere with his sleep. Encourage patient to to use ear plugs she sees if they are helpful. Blood pressure is fluctuated. We will continue to monitor. Ambulating with a walker. Pain is under control. 07/24/25: Patient slept through the night, was compliant with medications, but not compliant with diabetic protocol. Patient has not care for his diet, blood sugar continued to be high, received coverage. Nursing reported the patient was dancing yesterday but has a tantrum moment over food for dinner yesterday, he threw the walker away which was taken away from the patient for safety issues. Patient requests the walker, explained to patient reason why he can not get walker. He walked with normal steady gait. Reports the pain on the hip is improving. Denies safety concerns. Continued to confirm that he wants to stay in [place]. Reported that his granddaughter will come in in person to have a meeting this week. Denies depression or anxiety, sleep is improving. Changing from 5 to 15 minutes safety checks 07/25/25:Patient slept well, compliant with medication. Denies side effects. POC remains high, asymptomatic, received coverage per Protocol with extra 4 unit of Insulin prior dinner. Denies pain, walking with steady gait. Denies anxiety/depression. Denies SI/SIB/HI/AVH. Patient reports that he has been in this country for 10 years. Confirm he wants to stay in [place]. Do not want to return to [place]. Per SW, meeting with family went well- virtual. [place] return to [place]. SW will work on aftercare plan and FLU appointment. Plan: Bilateral hip pain-resolved Patient does not have any radiculopathy, numbness or tingling in his legs. He is ambulating at baseline without any antalgic gait, not using a walker. Denying any hip pain. CKD 3B Stable. Avoid nephrotoxins. Right lower lobe pneumonia Noted on chest x-ray Continue Levaquin 750 daily for 5 days due to PCN allergy Updraft nebulizer as needed Patient with a history of asthma, not on any maintenance meds. Continue Spiriva Improving Laceration to dorsum of left hand and fingers/scratch abrasions to calf. Continue local wound care Wound care following. No evidence of infection Coronary artery disease/history of stroke/CHF/hypertension Continue aspirin, Plavix, atorvastatin and Jardiance. Continue metoprolol 50 mg daily extended release Continue losartan at 25 mg daily, blood pressure is stable Continue Lasix twice daily at reduced dose in pm. Daily weights. Weight stable. 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 Add glargine 10 units in the morning. Recent A1c 9.1 Can consider starting Trulicity outpatient Continue gabapentin 600 t.i.d. Blood sugars elevated due to prednisone- last dose today Chronic kidney disease Stage 3 B Baseline 1.2 Avoid nephrotoxins Continue to monitor-nephrology consult pending BPH Continue tamsulosin GERD Continue Protonix Vitamin-D deficiency Continue vitamin-D daily Patient educated on: medication risk/benefits and therapeutic strategies Informed Consent: understands and further education needed Reason for continued inpatient stay Substantial Risk for: med/psych decompensation Time Spent With Patient Time: Total time managing care of this patient today ____ minutes.
[2025-07-25] MEDS: Throat Lozenge, Medicated LOZENGE 1 LOZENGE MUCOUS MEM (21:28)
[2025-07-25 22:01] LABS: Glucose, Whole Blood 554 mg/dL (60-115)
[2025-07-26 06:00] VITALS: BMI 39.1
[2025-07-26 06:17] LABS: Glucose, Whole Blood 359 mg/dL (60-115)
[2025-07-26 07:58] VITALS: BP 119/66
[2025-07-26 08:00] VITALS: BP 119/66; PULSE 78; RESP 18; TEMP 36.3; O2SAT 95
[2025-07-26] MEDS: Insulin Glargine,Hum.rec.anlog 100 UNIT/ML 10 ML VIAL 10 UNIT SUBCUT (08:03)
[2025-07-26 08:04] VITALS: BP 119/66; PULSE 78
[2025-07-26] MEDS: Ferrous Sulfate 324 MG TABLET.DR PO ×3 (08:04→20:02)
[2025-07-26] MEDS: Metoprolol Succinate ER 50 MG TAB.ER.24H PO (08:04)
[2025-07-26] MEDS: Tiotropium Bromide 2.5 mcg 1 PUFF/2.5 MCG MIST.INHAL 2 PUFF INHALE (08:05)
[2025-07-26 09:41] LABS: Glucose, Whole Blood 331 mg/dL (60-115)
[2025-07-26 11:16] LABS: Glucose, Whole Blood 324 mg/dL (60-115)
--- NOTE | 2025-07-26 15:32 | P.PNPSI_ITS ---
Subjective Subjective Date of Service: 07/26/25 Reason For Visit: Depression Subjective Notes: Conditional Voluntary Healthcare Proxy: Yes Guardianship: No Medical Problems Affecting Mental Status: No Interim History: Medical record and nursing notes reviewed; case discussed during rounds with team/nursing staff, and met with patient for supportive therapy/psychoeducation, as well as medication management. In person [employer] utilized. Reports improve in sleep, , medication compliant, denies safety concerns, denies depression and anxiety. Denies pain. Patient reported that he did not attend to family meeting yesterday. Educate patient on healthy food/fluid choices as his blood sugar was elevated much more higher than normal. He spent sometime napping in his room. No behavior issues. Reports sore throat and headache yesterday. Denies headache this morning but reported that he was coughing at night and has sore throat now. Medication Compliance: Yes Side effects from medications: No Attending Groups: Intermittent Review of Systems Acute medical concerns: No Medical Review of Systems: unchanged Review of Systems Review of Systems Const : no body aches, no chills, no excessive sweating and no fatigue Eyes: no blurry vision and no change in vision ENT: no bleeding gums and no change in voice, no dizziness Card: no chest pain, ?no shortness of breath, no orthopnea, no PND Resp: report cough last night with sore throat now, ?no excessive phlegm production, no SOB GI: no abdominal pain and no nausea, no vomiting : no hematuria, no urinary frequency and no difficulty voiding Musc: no abnormal gait, no bone pain Neuro: no ?abnormal movements, no weakness,and +behavioral changes Psych: no behavioral changes and no change in appetite Endo: no change in body appearance, no cold intolerance, Yes all other systems are reviewed and are negative Mental Status Exam Mental Status Exam Narrative: Appearance: Casually dressed, adequate hygiene Behavior: Calm cooperative throughout the interview. Cheerful. Appropriate eye contact, no signs of psychomotor agitation or psychomotor retardation present Speech: Normal volume and prosody Thought process: Linear Thought content: WNL. organized. Mood: Good Affect: mood-congruent SI:denies HI:denies VH/AH:none Delusions: None Insight/judgment: Improved Memory/cog: Alert and oriented. grossly intact to conversational testing Diagnostics Vital Signs (24Hr): Vital Signs - 24 hr 07/25/25 20:00 07/26/25 07:58 07/26/25 08:00 Temperature 97.2 F 97.4 F Pulse Rate 72 78 Respiratory Rate 16 18 Blood Pressure 183/76 H 119/66 119/66 Pulse Oximetry 99 95 Oxygen Delivery Method Room Air Room Air 07/26/25 08:04 Temperature Pulse Rate 78 Respiratory Rate Blood Pressure 119/66 Pulse Oximetry Oxygen Delivery Method BMI result Body Mass Index 39.1 Labs 07/21/25 13:39 Labs: Laboratory Results - last 48 hr 07/24/25 07/24/25 07/25/25 16:12 19:54 06:43 POC Glucose 360 H* 486 H* 235 H 07/25/25 07/25/25 07/25/25 11:13 16:18 20:22 POC Glucose 396 H* 448 H* 575 H* 07/25/25 07/26/25 07/26/25 21:56 06:07 07:28 POC Glucose 554 H* 359 H* 331 H 07/26/25 11:12 POC Glucose 324 H Imaging Radiology Impressions: ITS Impressions Chest X-Ray 07/15/25 15:24 IMPRESSION: Clear lungs. Electronically signed by: Brice Bunch MD 07/15/2025 03:40 PM EDT RP Hip/Pelvis X-Ray 07/19/25 11:20 IMPRESSION: Patchy increased sclerosis which may be due to renal osteodystrophy. Other etiologies including metastatic disease are not excluded. Clinical correlation is recommended. Electronically signed by: Brice Bunch MD 07/19/2025 11:49 AM EDT RP Lumbar Spine X-Ray 07/19/25 11:20 IMPRESSION: Mild degenerative disc disease. Electronically signed by: Brice Bunch MD 07/19/2025 11:50 AM EDT RP Chest X-Ray 07/19/25 11:33 IMPRESSION: Right lower lobe pneumonia. Follow-up is recommended to document resolution. Electronically signed by: Brice Bunch MD 07/19/2025 11:44 AM EDT RP Abdomen/Pelvis CT 07/21/25 15:26 IMPRESSION: Lobulated fat-containing umbilical hernia. Atelectasis versus airspace disease, lung bases. Abundant stool without intestinal obstruction pattern. Simple cyst, left kidney. Degenerative changes both hips with questionable trochanter bursitis. Multilevel thoracolumbar spondylosis resulting in central spinal canal stenosis. Please for to the CT lumbar spine. Fleischner guidelines were followed. 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 Mild narrowing of neural foramina bilaterally at along the lumbar spinal canal. The findings are slightly worse on the right at the T12-L1 disc level there is a right facet joint hypertrophy extending into the neural foramina and a small bony spur extending into right lateral recess at the L2-3 disc level. No abnormal enhancement seen within the lower dorsal or lumbar spinal canal or the region of conus medullaris. If patient has persistent radiculopathy and numbness and tingling in the legs further evaluation with neurology may be helpful. Electronically signed by: Gabo Bush MD 07/22/2025 07:26 AM EDT RP Medications Medications Current Medications Acetaminophen (Acetaminophen 325 Mg Tablet) 650 mg PO Q6H PRN PRN Reason: Headache/Pain, Scale 1-10 Last Admin: 07/25/25 21:28 Dose: 650 mg Al Hydroxide/Mg Hydroxide (Magnesium Hydrox/Alum Hydrox 30 Ml Oral.Susp) 30 ml PO Q6H PRN PRN Reason: Heartburn/Nausea Last Admin: 07/25/25 09:57 Dose: 30 ml Albuterol Sulfate (Albuterol Sulfate 90 Mcg 8 Gm Inhaler) 2 puff INHALE RQ4H PRN PRN Reason: SOB/Wheezing Last Admin: 07/24/25 17:06 Dose: 2 puff Albuterol Sulfate (Albuterol Sulfate (0.083%) 2.5 Mg/3 Ml Vial.Neb) 2.5 mg INHALE Q6H PRN PRN Reason: Wheezing Aspirin (Aspirin 81 Mg Tab.Chew) 81 mg PO DAILY [facility] Last Admin: 07/26/25 08:04 Dose: 81 mg Atorvastatin Calcium (Atorvastatin Calcium 40 Mg Tablet) 40 mg PO BEDTIME MARCIA Last Admin: 07/25/25 20:48 Dose: 40 mg Benzocaine (Throat Lozenge, Medicated Lozenge) 1 lozenge MUCOUS MEM Q2H PRN PRN Reason: Sore Throat Last Admin: 07/25/25 21:28 Dose: 1 lozenge Clopidogrel Bisulfate (Clopidogrel Bisulfate 75 Mg Tablet) 75 mg PO DAILY [facility] Last Admin: 07/26/25 08:04 Dose: 75 mg Cyanocobalamin (Cyanocobalamin (Vitamin B-12) 1,000 Mcg Tablet) 1,000 mcg PO DAILY [facility], [facility] Last Admin: 07/26/25 08:04 Dose: 1,000 mcg Empagliflozin (Empagliflozin 10 Mg Tablet) 10 mg PO DAILY [facility] Last Admin: 07/26/25 08:04 Dose: 10 mg Ergocalciferol (Ergocalciferol (Vitamin D2) 1,250 Mcg Capsule) 1,250 mcg PO Fr@0900 [facility]1983 Stop: 09/09/25 09:01 Last Admin: 07/22/25 16:32 Dose: Not Given Ferrous Sulfate (Ferrous Sulfate 324 Mg Tablet.) 324 mg PO TID [facility] Last Admin: 07/26/25 08:04 Dose: 324 mg Fluticasone Propionate (Fluticasone Propionate Nasal 16 Gm [place]) 1 spray NOSTRIL-B DAILY [facility] Last Admin: 07/26/25 08:05 Dose: 1 spray Furosemide (Furosemide 40 Mg Tablet) 40 mg PO DAILY [facility] On Hold: 07/20/25 09:00 Furosemide (Furosemide 20 Mg Tablet) 20 mg PO DAILY [facility]; Protocol Last Admin: 07/26/25 07:58 Dose: 20 mg Gabapentin (Gabapentin 600 Mg Tablet) 600 mg PO TID [facility] Last Admin: 07/26/25 08:04 Dose: 600 mg Insulin Glargine (Insulin Glargine,Hum.Rec.Anlog 100 Unit/Ml 10 Ml Vial) 50 unit SUBCUT BEDTIME [facility] Last Admin: 07/25/25 20:46 Dose: 50 unit Insulin Glargine (Insulin Glargine,Hum.Rec.Anlog 100 Unit/Ml 10 Ml Vial) 10 unit SUBCUT DAILY [facility] Last Admin: 07/26/25 08:03 Dose: 10 unit Insulin Human Lispro (Insulin Lispro 100 Unit/Ml 3 Ml Vial) 0 unit SUBCUT QIDACHS [facility], [facility]; Protocol Last Admin: 07/26/25 11:38 Dose: 8 unit Levofloxacin (Levofloxacin 750 Mg Tablet) 750 mg PO Q24H MARCIA Stop: 07/29/25 13:59 Last Admin: 07/25/25 14:17 Dose: 750 mg Lorazepam (Lorazepam 0.5 Mg Tablet) 0.5 mg PO BID PRN PRN Reason: Anxiety Last Admin: 07/23/25 21:53 Dose: 0.5 mg Losartan Potassium (Losartan Potassium 25 Mg Tablet) 25 mg PO DAILY MARCIA On Hold: 07/17/25 09:33 Last Admin: 07/17/25 08:19 Dose: 25 mg Magnesium Hydroxide (Milk Of Magnesia 30 Ml Oral.Susp) 30 ml PO DAILY PRN PRN Reason: Constipation Melatonin (Melatonin 3 Mg Tablet) 6 mg PO BEDTIME MARCIA Last Admin: 07/25/25 20:49 Dose: 6 mg Metoprolol Succinate (Metoprolol Succinate Er 50 Mg Tab.Er.24h) 50 mg PO DAILY [facility] Last Admin: 07/26/25 08:04 Dose: 50 mg Montelukast Sodium (Montelukast Sodium 10 Mg Tablet) 10 mg PO BEDTIME MARCIA Last Admin: 07/25/25 20:49 Dose: 10 mg Pantoprazole Sodium (Pantoprazole Sodium 20 Mg Tablet.Dr) 40 mg PO DAILY [facility] Last Admin: 07/26/25 08:04 Dose: 40 mg Polyethylene Glycol (Polyethylene Glycol 3350 17 Gm Powd.Pack) 17 gm PO DAILY [facility] Last Admin: 07/26/25 08:06 Dose: Not Given Risperidone (Risperidone 1 Mg Tablet) 1 mg PO BID [facility] Last Admin: 07/26/25 08:04 Dose: 1 mg Tamsulosin HCl (Tamsulosin Hcl 0.4 Mg Capsule) 0.4 mg PO BEDTIME MARCIA Last Admin: 07/25/25 20:47 Dose: 0.4 mg Thiamine HCl (Thiamine Hcl 100 Mg Tablet) 100 mg PO DAILY [facility] Last Admin: 07/26/25 08:04 Dose: 100 mg Tiotropium [place] (Tiotropium [place] 2.5 Mcg 1 Puff/2.5 Mcg Mist.Inhal) 2 puff INHALE RDAILY [facility] Last Admin: 07/26/25 08:05 Dose: 2 puff Tizanidine HCl (Tizanidine Hcl 4 Mg Tablet) 2 mg PO BEDTIME [facility] Last Admin: 07/25/25 20:47 Dose: 2 mg Tramadol HCl (Tramadol Hcl 50 Mg Tablet) 50 mg PO Q6H PRN PRN Reason: severe left hip pain Last Admin: 07/21/25 12:05 Dose: 50 mg Trazodone HCl (Trazodone Hcl 50 Mg Tablet) 50 mg PO BEDTIME MRX1 PRN PRN Reason: Insomnia Last Admin: 07/25/25 21:28 Dose: 50 mg Allergies Allergies Allergy/AdvReac Type Severity Reaction Status Date / Time Penicillins (PCN) AdvReac Unknown Verified 07/14/25 14:00 Assessment & Plan Assessment & Plan (1) RLL pneumonia: Status: Acute Code(s): J18.9 - Pneumonia, unspecified organism Plan Mr. Eden is a 75 year-old male who was initially brought to [facility] via EMS on [address] by police [place] was [place] the [place] inflicting laceration on left hand. No stitches required. He continued to self harm while in the ED. He reports he is hearing voices (reports male voice saying I want to see blood repeatedly), which then led to him acting on the voices thinking it may quiet them down. Although he endorses depressed mood in context of not having stable place to live and passive SI, he reports he does not want to but can't help if voices are ongoing. He reports he is not hearing voices now. We discussed risks, benefits and alternative treatment options. He agreed to start risperidone 1mg po BID. Hospital course: 07/19 continue tx. consult to hospitalist- left hip pain. no fall or injury. Updraft nebulizer as needed Patient with a history of asthma, not on any maintenance meds. Will start Spiriva 07/20: Patient found sitting on his bed with his feet on the floor and arms around his walker. He is irritable and tearful. He reports severe pain to his left hip. He rates his pain as 7/10 on the pain scale. Tramadol was increased to 50 mg Q6H as needed this morning. Patient repeatedly refused pain medication tramadol that his nurse offered at bedside. He eventually took the medication after intervention/education about his pain and treatment modalities by this provider. He denies anxiety or depression. He denies SI/HI/AH/VH. Continue current treatment regimen. PT consult made. 07/21: Reports 4/10 lower back and left hip pain. Cheerful and socializing with peers. Prednisone 40 mg daily x5 days ordered for pain. Continue current treatment regimen. [place] Hospitalist notes she would order more imaging for musculoskeletal pain. 07/22/25: Meet with patient in the presence of vending machine mechanic in sensory room. Patient reports bearable pain on left buttock area, rated pain 2/20. Report he has some happy tears today after talking to his granddaughter who is 5 years as she prays for him to be better to be home soon with family. Report mood and sleep/appetite are good. Denies anxiety/depression or safety concern. He says he would [place] stay in [place] instead of returning to [place]. Report that he can stay with her granddaughter who is 48 y.o in [place]. Explained to patient that he may not get good benefits for health insurance as he has [place] been [place] in [place] in a good period of time. Report he has been here more than 3 months. Patient is aware of potential family meeting next week on Friday at 1300 virtually and discharge to follow after. VSs stable, no SOB, O2Sat this morning 92% but improved later on of the day. Ambulate with wheelchair. Visbile, sociall appropriately with peers and staff and attended groups. 07/23/25: Patient slept for 5 hours, medication compliant, no side effects. He is reasonable, social and appropriate. Reports singing he people's vehicles saw about the pig/pork meat. Denies safety concerns. He was not happy regarding the roommate who was snoring loudly, and was not quiet at night which interfere with his sleep. Encourage patient to to use ear plugs she sees if they are helpful. Blood pressure is fluctuated. We will continue to monitor. Ambulating with a walker. Pain is under control. 07/24/25: Patient slept through the night, was compliant with medications, but not compliant with diabetic protocol. Patient has not care for his diet, blood sugar continued to be high, received coverage. Nursing reported the patient was dancing yesterday but has a tantrum moment over food for dinner yesterday, he threw the walker away which was taken away from the patient for safety issues. Patient requests the walker, explained to patient reason why he can not get walker. He walked with normal steady gait. Reports the pain on the hip is improving. Denies safety concerns. Continued to confirm that he wants to stay in [place]. Reported that his granddaughter will come in in person to have a meeting this week. Denies depression or anxiety, sleep is improving. Changing from 5 to 15 minutes safety checks 07/25/25:Patient slept well, compliant with medication. Denies side effects. POC remains high, asymptomatic, received coverage per Protocol with extra 4 unit of Insulin prior dinner. Denies pain, walking with steady gait. Denies anxiety/depression. Denies SI/SIB/HI/AVH. Patient reports that he has been in this country for 10 [place]. Confirm he wants to stay in [place]. Do not want to return to [place]. Per EDITH, meeting with family went well- virtual. Patient will return to [place]. will work on aftercare plan and FLU appointment. 07/26/25: In person [employer] utilized. Reports improve in sleep, , medication compliant, denies safety concerns, denies depression and anxiety. Denies pain. Patient reported that he did not attend to family meeting yesterday. Educate patient on healthy food/fluid choices as his blood sugar was elevated much more higher than normal. He spent sometime napping in his room. No behavior issues. Reports sore throat and headache yesterday. Denies headache this morning but reported that he was coughing at night and has sore throat now. Plan: Bilateral hip pain-resolved Patient does not have any radiculopathy, numbness or tingling in his legs. He is ambulating at baseline without any antalgic gait, not using a walker. Denying any hip pain. CKD 3B Stable. Avoid nephrotoxins. Right lower lobe pneumonia Noted on chest x-ray Continue Levaquin 750 daily for 5 days due to PCN allergy Updraft nebulizer as needed Patient with a history of asthma, not on any maintenance meds. Continue Spiriva Improving Laceration to dorsum of left hand and fingers/scratch abrasions to calf. Continue local wound care Wound care following. No evidence of infection Coronary artery disease/history of stroke/CHF/hypertension Continue aspirin, Plavix, atorvastatin and Jardiance. Continue metoprolol 50 mg daily extended release Continue losartan at 25 mg daily, blood pressure is stable Continue Lasix twice daily at reduced dose in pm. Daily weights. Weight stable. 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 Add glargine 10 units in the morning. Recent A1c 9.1 Can consider starting Trulicity outpatient Continue gabapentin 600 t.i.d. Blood sugars elevated due to prednisone- last dose today Chronic kidney disease Stage 3 B Baseline 1.2 Avoid nephrotoxins Continue to monitor-nephrology consult pending BPH Continue tamsulosin GERD Continue Protonix Vitamin-D deficiency Continue vitamin-D daily Patient educated on: diagnosis, medication risk/benefits and therapeutic strategies Informed Consent: understands Reason for continued inpatient stay Substantial Risk for: med/psych decompensation Time Spent With Patient Time: Total time managing care of this patient today ____ minutes.
[2025-07-26 16:39] LABS: Glucose, Whole Blood 307 mg/dL (60-115)
[2025-07-26 19:54] LABS: Glucose, Whole Blood 413 mg/dL (60-115)
[2025-07-26 20:00] VITALS: BP 114/54; PULSE 69; RESP 16; TEMP 36.3; O2SAT 95
[2025-07-26] MEDS: Insulin Glargine,Hum.rec.anlog 100 UNIT/ML 10 ML VIAL 50 UNIT SUBCUT (20:02)
[2025-07-27 06:00] VITALS: BMI 39.3
[2025-07-27 06:44] LABS: Glucose, Whole Blood 279 mg/dL (60-115)
[2025-07-27 08:00] VITALS: BP 115/56; PULSE 72; RESP 16; TEMP 36.2; O2SAT 96
[2025-07-27] MEDS: Insulin Glargine,Hum.rec.anlog 100 UNIT/ML 10 ML VIAL 10 UNIT SUBCUT (08:14)
[2025-07-27] MEDS: Tiotropium Bromide 2.5 mcg 1 PUFF/2.5 MCG MIST.INHAL 2 PUFF INHALE (08:15)
[2025-07-27] MEDS: Metoprolol Succinate ER 50 MG TAB.ER.24H PO (08:16)
[2025-07-27] MEDS: Ferrous Sulfate 324 MG TABLET.DR PO ×3 (08:16→20:39)
--- NOTE | 2025-07-27 11:17 | HO.PSYCHPN ---
Subjective Subjective Date of Service: 07/27/25 Reason For Visit: Depression Subjective Notes: Conditional Voluntary Healthcare Proxy: Yes Interim History: Patient found ambulating in the hallway with steady gait without an assistive. He states that he feels ?good. He denies anxiety or depression. He denies SI/HI/AVH. Per nursing, patient slept 8 hours. Nursing also reports that the patient's sugar significantly increased while on prednisone, but has been trending down after completing treatment course. Medication Compliance: Yes Side effects from medications: No Attending Groups: Intermittent Review of Systems Acute medical concerns: No Mental Status Exam Mental Status Exam Narrative: Appearance: Casually dressed, adequate hygiene Behavior: Calm cooperative throughout the interview. Cheerful. Appropriate eye contact, no signs of psychomotor agitation or psychomotor retardation present Speech: Normal volume and prosody Thought process: Linear Thought content: WNL. organized Mood: Good Affect: mood-congruent SI:denies HI:denies VH/AH:none Delusions: None Insight/judgment: Improved Memory/cog: Alert and oriented. grossly intact to conversational testing Diagnostics Vital Signs (24Hr): Vital Signs - 24 hr 07/26/25 20:00 07/27/25 08:00 Temperature 97.3 F 97.2 F Pulse Rate 69 72 Respiratory Rate 16 16 Blood Pressure 114/54 L 115/56 L Pulse Oximetry 95 96 Oxygen Delivery Method Room Air BMI result Body Mass Index 39.3 Labs 07/21/25 13:39 Labs: Laboratory Results - last 48 hr 07/25/25 07/25/25 07/25/25 11:13 16:18 20:22 POC Glucose 396 H* 448 H* 575 H* 07/25/25 07/26/25 07/26/25 21:56 06:07 07:28 POC Glucose 554 H* 359 H* 331 H 07/26/25 07/26/25 07/26/25 11:12 16:35 19:45 POC Glucose 324 H 307 H 413 H* 07/27/25 06:13 POC Glucose 279 H Imaging Radiology Impressions: ITS Impressions Chest X-Ray 07/15/25 15:24 IMPRESSION: Clear lungs. Electronically signed by: Brice Bunch MD 07/15/2025 03:40 PM EDT Hip/Pelvis X-Ray 07/19/25 11:20 IMPRESSION: Patchy increased sclerosis which may be due to renal osteodystrophy. Other etiologies including metastatic disease are not excluded. Clinical correlation is recommended. Electronically signed by: Brice Bunch MD 07/19/2025 11:49 AM EDT RP Lumbar Spine X-Ray 07/19/25 11:20 IMPRESSION: Mild degenerative disc disease. Electronically signed by: Brice Bunch MD 07/19/2025 11:50 AM EDT RP Chest X-Ray 07/19/25 11:33 IMPRESSION: Right lower lobe pneumonia. Follow-up is recommended to document resolution. Electronically signed by: Brice Bunch MD 07/19/2025 11:44 AM EDT RP Abdomen/Pelvis CT 07/21/25 15:26 IMPRESSION: Lobulated fat-containing umbilical hernia. Atelectasis versus airspace disease, lung bases. Abundant stool without intestinal obstruction pattern. Simple cyst, left kidney. Degenerative changes both hips with questionable trochanter bursitis. Multilevel thoracolumbar spondylosis resulting in central spinal canal stenosis. Please for to the CT lumbar spine. Fleischner guidelines were followed. 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 Mild narrowing of neural foramina bilaterally at along the lumbar spinal canal. The findings are slightly worse on the right at the T12-L1 disc level there is a right facet joint hypertrophy extending into the neural foramina and a small bony spur extending into right lateral recess at the L2-3 disc level. No abnormal enhancement seen within the lower dorsal or lumbar spinal canal or the region of conus medullaris. If patient has persistent radiculopathy and numbness and tingling in the legs further evaluation with neurology may be helpful. Electronically signed by: Gabo Bush MD 07/22/2025 07:26 AM EDT RP Medications Medications Current Medications Acetaminophen (Acetaminophen 325 Mg Tablet) 650 mg PO Q6H PRN PRN Reason: Headache/Pain, Scale 1-10 Last Admin: 10/20/25 21:28 Dose: 650 mg Al Hydroxide/Mg Hydroxide (Magnesium Hydrox/Alum Hydrox 30 Ml Oral.Susp) 30 ml PO Q6H PRN PRN Reason: Heartburn/Nausea Last Admin: 07/25/25 09:57 Dose: 30 ml Albuterol Sulfate (Albuterol Sulfate 90 Mcg 8 Gm Inhaler) 2 puff INHALE RQ4H PRN PRN Reason: SOB/Wheezing Last Admin: 07/24/25 17:06 Dose: 2 puff Albuterol Sulfate (Albuterol Sulfate (0.083%) 2.5 Mg/3 Ml Vial.Neb) 2.5 mg INHALE Q6H PRN PRN Reason: Wheezing Aspirin (Aspirin 81 Mg Tab.Chew) 81 mg PO DAILY [facility] Last Admin: 07/27/25 08:16 Dose: 81 mg Atorvastatin Calcium (Atorvastatin Calcium 40 Mg Tablet) 40 mg PO BEDTIME [facility] Last Admin: 07/26/25 20:02 Dose: 40 mg Benzocaine (Throat Lozenge, Medicated Lozenge) 1 lozenge MUCOUS MEM Q2H PRN PRN Reason: Sore Throat Last Admin: 07/25/25 21:28 Dose: 1 lozenge Clopidogrel Bisulfate (Clopidogrel Bisulfate 75 Mg Tablet) 75 mg PO DAILY [facility] Last Admin: 07/27/25 08:16 Dose: 75 mg Cyanocobalamin (Cyanocobalamin (Vitamin B-12) 1,000 Mcg Tablet) 1,000 mcg PO DAILY [facility] Last Admin: 07/27/25 08:16 Dose: 1,000 mcg Empagliflozin (Empagliflozin 10 Mg Tablet) 10 mg PO DAILY [facility] Last Admin: 07/27/25 08:16 Dose: 10 mg Ergocalciferol (Ergocalciferol (Vitamin D2) 1,250 Mcg Capsule) 1,250 mcg PO Fr@0900 [facility] Stop: 09/09/25 09:01 Last Admin: 07/22/25 16:32 Dose: Not Given Ferrous Sulfate (Ferrous Sulfate 324 Mg Tablet.Dr) 324 mg PO TID [facility] Last Admin: 07/27/25 08:16 Dose: 324 mg Fluticasone Propionate (Fluticasone Propionate Nasal 16 Gm Archer) 1 spray NOSTRIL-B DAILY [facility] Last Admin: 07/27/25 08:17 Dose: 1 spray Furosemide (Furosemide 40 Mg Tablet) 40 mg PO DAILY [facility] On Hold: 07/20/25 09:00 Furosemide (Furosemide 20 Mg Tablet) 20 mg PO DAILY [facility]; Protocol Last Admin: 07/27/25 08:15 Dose: 20 mg Gabapentin (Gabapentin 600 Mg Tablet) 600 mg PO TID [facility] Last Admin: 07/27/25 08:16 Dose: 600 mg Insulin Glargine (Insulin Glargine,Hum.Rec.Anlog 100 Unit/Ml 10 Ml Vial) 50 unit SUBCUT BEDTIME [facility] Last Admin: 07/26/25 20:02 Dose: 50 unit Insulin Glargine (Insulin Glargine,Hum.Rec.Anlog 100 Unit/Ml 10 Ml Vial) 10 unit SUBCUT DAILY [facility] Last Admin: 07/27/25 08:14 Dose: 10 unit Insulin Human Lispro (Insulin Lispro 100 Unit/Ml 3 Ml Vial) 0 unit SUBCUT QIDACHS [facility]; Protocol Last Admin: 07/27/25 08:15 Dose: 6 unit Levofloxacin (Levofloxacin 750 Mg Tablet) 750 mg PO Q24H [facility] Stop: 07/29/25 13:59 Last Admin: 07/26/25 16:41 Dose: 750 mg Lorazepam (Lorazepam 0.5 Mg Tablet) 0.5 mg PO BID PRN PRN Reason: Anxiety Last Admin: 07/23/25 21:53 Dose: 0.5 mg Losartan Potassium (Losartan Potassium 25 Mg Tablet) 25 mg PO DAILY [facility] On Hold: 07/17/25 09:33 Last Admin: 07/17/25 08:19 Dose: 25 mg Magnesium Hydroxide (Milk Of Magnesia 30 Ml Oral.Susp) 30 ml PO DAILY PRN PRN Reason: Constipation Melatonin (Melatonin 3 Mg Tablet) 6 mg PO BEDTIME [facility] Last Admin: 07/26/25 20:02 Dose: 6 mg Metoprolol Succinate (Metoprolol Succinate Er 50 Mg Tab.Er.24h) 50 mg PO DAILY [facility] Last Admin: 07/27/25 08:16 Dose: 50 mg Montelukast Sodium (Montelukast Sodium 10 Mg Tablet) 10 mg PO BEDTIME [facility] Last Admin: 07/26/25 20:02 Dose: 10 mg Pantoprazole Sodium (Pantoprazole Sodium 20 Mg Tablet.Dr) 40 mg PO DAILY [facility] Last Admin: 07/27/25 08:16 Dose: 40 mg Polyethylene Glycol (Polyethylene Glycol 3350 17 Gm Powd.Pack) 17 gm PO DAILY [facility] Last Admin: 07/26/25 08:06 Dose: Not Given Risperidone (Risperidone 1 Mg Tablet) 1 mg PO BID [facility] Last Admin: 07/27/25 08:16 Dose: 1 mg Tamsulosin HCl (Tamsulosin Hcl 0.4 Mg Capsule) 0.4 mg PO BEDTIME [facility] Last Admin: 07/26/25 20:02 Dose: 0.4 mg Thiamine HCl (Thiamine Hcl 100 Mg Tablet) 100 mg PO DAILY [facility] Last Admin: 07/27/25 08:15 Dose: 100 mg Tiotropium [place] (Tiotropium [place] 2.5 Mcg 1 Puff/2.5 Mcg Mist.Inhal) 2 puff INHALE RDAILY [facility] Last Admin: 07/27/25 08:15 Dose: 2 puff Tizanidine HCl (Tizanidine Hcl 4 Mg Tablet) 2 mg PO BEDTIME [facility] Last Admin: 07/26/25 20:03 Dose: 2 mg Tramadol HCl (Tramadol Hcl 50 Mg Tablet) 50 mg PO Q6H PRN PRN Reason: severe left hip pain Last Admin: 07/21/25 12:05 Dose: 50 mg Trazodone HCl (Trazodone Hcl 50 Mg Tablet) 50 mg PO BEDTIME MRX1 PRN PRN Reason: Insomnia Last Admin: 07/26/25 21:39 Dose: 50 mg Allergies Allergies Allergy/AdvReac Type Severity Reaction Status Date / Time Penicillins (PCN) AdvReac Unknown Verified 07/14/25 14:00 Assessment & Plan Assessment & Plan (1) RLL pneumonia: Status: Acute Code(s): J18.9 - Pneumonia, unspecified organism Plan Mr. Eden is a 75 year-old male who was initially brought to [facility] via EMS on [address] by police after [place] was [place] the park inflicting laceration on left hand. No stitches required. He continued to self harm while in the ED. He reports he is hearing voices (reports male voice saying I want to see blood repeatedly), which then led to him acting on the voices thinking it may quiet them down. Although he endorses depressed mood in context of not having stable place to live and passive SI, he reports he does not want to but can't help if voices are ongoing. He reports he is not hearing voices now. We discussed risks, benefits and alternative treatment options. He agreed to start risperidone 1mg po BID. Hospital course: 07/19 continue tx. consult to hospitalist- left hip pain. no fall or injury. Updraft nebulizer as needed Patient with a history of asthma, not on any maintenance meds. Will start Spiriva 07/20: Patient found sitting on his bed with his feet on the floor and arms around his walker. He is irritable and tearful. He reports severe pain to his left hip. He rates his pain as 7/10 on the pain scale. Tramadol was increased to 50 mg Q6H as needed this morning. Patient repeatedly refused pain medication tramadol that his nurse offered at bedside. He eventually took the medication after intervention/education about his pain and treatment modalities by this provider. He denies anxiety or depression. He denies SI/HI/AH/VH. Continue current treatment regimen. PT consult made. 07/21: Reports 4/10 lower back and left hip pain. Cheerful and socializing with peers. Prednisone 40 mg daily x5 days ordered for pain. Continue current treatment regimen. [place] Hospitalist notes she would order more imaging for musculoskeletal pain. 07/22/25: Meet with patient in the presence of gas torch brazier in sensory room. Patient reports bearable pain on left buttock area, rated pain 2/20. Report he has some happy tears today after talking to his granddaughter who is 5 years as she prays for him to be better to be home soon with family. Report mood and sleep/appetite are good. Denies anxiety/depression or safety concern. He says he would rather stay in [place] instead of returning to [place]. Report that he can stay with her granddaughter who is 48 y.o in [place]. Explained to patient that he may not get good benefits for health insurance as he has not been here in [place] in a good period of time. Report he has been here more than 3 months. Patient is aware of potential family meeting next week on Friday at 1300 virtually and discharge to follow after. VSs stable, no SOB, O2Sat this morning 92% but improved later on of the day. Ambulate with wheelchair. Lam, sociall appropriately with peers and staff and attended groups. 07/23/25: Patient slept for 5 hours, medication compliant, no side effects. He is reasonable, social and appropriate. Reports singing he people's vehicles saw about the pig/pork meat. Denies safety concerns. He was not happy regarding the roommate who was snoring loudly, and was not quiet at night which interfere with his sleep. Encourage patient to to use ear plugs she sees if they are helpful. Blood pressure is fluctuated. We will continue to monitor. Ambulating with a walker. Pain is under control. 07/24/25: Patient slept through the night, was compliant with medications, but not compliant with diabetic protocol. Patient has not care for his diet, blood sugar continued to be high, received coverage. Nursing reported the patient was dancing yesterday but has a tantrum moment over food for dinner yesterday, he threw the walker away which was taken away from the patient for safety issues. Patient requests the walker, explained to patient reason why he can not get walker. He walked with normal steady gait. Reports the pain on the hip is improving. Denies safety concerns. Continued to confirm that he wants to stay in [place]. Reported that his granddaughter will come in in person to have a meeting this week. Denies depression or anxiety, sleep is improving. Changing from 5 to 15 minutes safety checks 07/25/25:Patient slept well, compliant with medication. Denies side effects. POC remains high, asymptomatic, received coverage per Protocol with extra 4 unit of Insulin prior dinner. Denies pain, walking with steady gait. Denies anxiety/depression. Denies SI/SIB/HI/AVH. Patient reports that he has been in this country for 10 years. Confirm he wants to stay in [place]. Do not want to return to [place]. Per , meeting with family went well- virtual. Patient will return to [place]. will work on aftercare plan and FLU appointment. 07/26/25: In person [employer] utilized. Reports improve in sleep, , medication compliant, denies safety concerns, denies depression and anxiety. Denies pain. Patient reported that he did not attend to family meeting yesterday. Educate patient on healthy food/fluid choices as his blood sugar was elevated much more higher than normal. He spent sometime napping in his room. No behavior issues. Reports sore throat and headache yesterday. Denies headache this morning but reported that he was coughing at night and has sore throat now. 07/27: Nursing also reports that the patient's sugar significantly increased while on prednisone, but has been trending down. Blood glucose in the past 2 days between 413 and 291. Continue current treatment regimen. Plan: Bilateral hip pain-resolved Patient does not have any radiculopathy, numbness or tingling in his legs. He is ambulating at baseline without any antalgic gait, not using a walker. Denying any hip pain. CKD 3B Stable. Avoid nephrotoxins. Right lower lobe pneumonia Noted on chest x-ray Continue Levaquin 750 daily for 5 days due to PCN allergy Updraft nebulizer as needed Patient with a history of asthma, not on any maintenance meds. Continue Spiriva Improving Laceration to dorsum of left hand and fingers/scratch abrasions to calf. Continue local wound care Wound care following. No evidence of infection Coronary artery disease/history of stroke/CHF/hypertension Continue aspirin, Plavix, atorvastatin and Jardiance. Continue metoprolol 50 mg daily extended release Continue losartan at 25 mg daily, blood pressure is stable Continue Lasix twice daily at reduced dose in pm. Daily weights. Weight stable. 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 Add glargine 10 units in the morning. Recent A1c 9.1 Can consider starting Trulicity outpatient Continue gabapentin 600 t.i.d. Blood sugars elevated due to prednisone- last dose today Chronic kidney disease Stage 3 B Baseline 1.2 Avoid nephrotoxins Continue to monitor-nephrology consult pending BPH Continue tamsulosin GERD Continue Protonix Vitamin-D deficiency Continue vitamin-D daily Patient educated on: therapeutic strategies Reason for continued inpatient stay Substantial Risk for: rapid decompensation Time Spent With Patient Time: Total time managing care of this patient today ____ minutes.
[2025-07-27 11:19] LABS: Glucose, Whole Blood 291 mg/dL (60-115)
[2025-07-27 16:05] LABS: Glucose, Whole Blood 265 mg/dL (60-115)
[2025-07-27 19:56] VITALS: BP 153/69; PULSE 69; RESP 18; TEMP 36.3; O2SAT 93
[2025-07-27] MEDS: Insulin Glargine,Hum.rec.anlog 100 UNIT/ML 10 ML VIAL 50 UNIT SUBCUT (20:39)
[2025-07-27 20:50] LABS: Glucose, Whole Blood 322 mg/dL (60-115)
[2025-07-27] MEDS: Throat Lozenge, Medicated LOZENGE 1 LOZENGE MUCOUS MEM (21:04)
[2025-07-28 04:44] LABS: Parathyroid Hormone Related Pr 8 pg/mL (11-20)
[2025-07-28 06:00] VITALS: BMI 39.4
[2025-07-28 06:24] LABS: Glucose, Whole Blood 146 mg/dL (60-115)
[2025-07-28 08:42] VITALS: BP 108/54; PULSE 68; RESP 15; TEMP 36.8; O2SAT 98
[2025-07-28] MEDS: Ferrous Sulfate 324 MG TABLET.DR PO ×3 (08:49→20:05)
[2025-07-28] MEDS: Insulin Glargine,Hum.rec.anlog 100 UNIT/ML 10 ML VIAL 10 UNIT SUBCUT (08:49)
[2025-07-28] MEDS: Tiotropium Bromide 2.5 mcg 1 PUFF/2.5 MCG MIST.INHAL 2 PUFF INHALE (08:50)
--- NOTE | 2025-07-28 09:28 | PC.NURSE ---
Metoprolol held d/t decreased diastolic. Pt also c/i pain in throat and is afrebrile. Provider notified.
--- NOTE | 2025-07-28 11:19 | HO.PSYCHPN ---
Subjective Subjective Date of Service: 07/28/25 Reason For Visit: Depression Subjective Notes: Conditional Voluntary Medical Problems Affecting Mental Status: No Interim History: Patient found lying in his bed. He notes that he feels ?good.? He reports ?mild? sore throat which started this morning. No headache, runny nose, cough, fever, chills, body aches, fatigue, weakness. He denies anxiety or depression. He denies SI/HI/AVH. Per OT, Syrian moca was yesterday. Medication Compliance: Yes Side effects from medications: No Attending Groups: Intermittent Review of Systems Acute medical concerns: Yes Reports mild sore throat Mental Status Exam Mental Status Exam Narrative: Appearance: Casually dressed, adequate hygiene Behavior: Calm cooperative throughout the interview. Pleasant. Appropriate eye contact, no signs of psychomotor agitation or psychomotor retardation present Speech: Normal volume and prosody Thought process: Linear Thought content: WNL. organized Mood: Good Affect: mood-congruent SI:denies HI:denies VH/AH:none Delusions: None Insight/judgment: Improved Memory/cog: Alert and oriented. grossly intact to conversational testing. Syrian moca was on 07/27/2025 Diagnostics Vital Signs (24Hr): Vital Signs - 24 hr 07/27/25 19:56 07/28/25 08:42 Temperature 97.3 F 98.2 F Pulse Rate 69 68 Respiratory Rate 18 15 Blood Pressure 153/69 H 108/54 L Pulse Oximetry 93 98 Oxygen Delivery Method Room Air Room Air BMI result Body Mass Index 39.3 Labs 07/21/25 13:39 Labs: Laboratory Results - last 48 hr 07/21/25 07/26/25 07/26/25 13:39 16:35 19:45 POC Glucose 307 H 413 H* PTH Related Protein 8 L 07/27/25 07/27/25 07/27/25 06:13 11:14 15:58 POC Glucose 279 H 291 H 265 H PTH Related Protein 07/27/25 07/28/25 20:45 06:20 POC Glucose 322 H 146 H PTH Related Protein Imaging Radiology Impressions: ITS Impressions Chest X-Ray 07/15/25 15:24 IMPRESSION: Clear lungs. Electronically signed by: Brice Bunch MD 07/15/2025 03:40 PM EDT RP Hip/Pelvis X-Ray 07/19/25 11:20 IMPRESSION: Patchy increased sclerosis which may be due to renal osteodystrophy. Other etiologies including metastatic disease are not excluded. Clinical correlation is recommended. Electronically signed by: Brice Bunch MD 07/19/2025 11:49 AM EDT RP Lumbar Spine X-Ray 07/19/25 11:20 IMPRESSION: Mild degenerative disc disease. Electronically signed by: Brice Bunch MD 07/19/2025 11:50 AM EDT RP Chest X-Ray 07/19/25 11:33 IMPRESSION: Right lower lobe pneumonia. Follow-up is recommended to document resolution. Electronically signed by: Brice Bunch MD 07/19/2025 11:44 AM EDT RP Abdomen/Pelvis CT 07/21/25 15:26 IMPRESSION: Lobulated fat-containing umbilical hernia. Atelectasis versus airspace disease, lung bases. Abundant stool without intestinal obstruction pattern. Simple cyst, left kidney. Degenerative changes both hips with questionable trochanter bursitis. Multilevel thoracolumbar spondylosis resulting in central spinal canal stenosis. Please for to the CT lumbar spine. Fleischner guidelines were followed. 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 Mild narrowing of neural foramina bilaterally at along the lumbar spinal canal. The findings are slightly worse on the right at the T12-L1 disc level there is a right facet joint hypertrophy extending into the neural foramina and a small bony spur extending into right lateral recess at the L2-3 disc level. No abnormal enhancement seen within the lower dorsal or lumbar spinal canal or the region of conus medullaris. If patient has persistent radiculopathy and numbness and tingling in the legs further evaluation with neurology may be helpful. Electronically signed by: Gabo Bush MD 07/22/2025 07:26 AM EDT RP Medications Medications Current Medications Acetaminophen (Acetaminophen 325 Mg Tablet) 650 mg PO Q6H PRN PRN Reason: Headache/Pain, Scale 1-10 Last Admin: 07/27/25 21:32 Dose: 650 mg Al Hydroxide/Mg Hydroxide (Magnesium Hydrox/Alum Hydrox 30 Ml Oral.Susp) 30 ml PO Q6H PRN PRN Reason: Heartburn/Nausea Last Admin: 07/25/25 09:57 Dose: 30 ml Albuterol Sulfate (Albuterol Sulfate 90 Mcg 8 Gm Inhaler) 2 puff INHALE RQ4H PRN PRN Reason: SOB/Wheezing Last Admin: 07/24/25 17:06 Dose: 2 puff Albuterol Sulfate (Albuterol Sulfate (0.083%) 2.5 Mg/3 Ml Vial.Neb) 2.5 mg INHALE Q6H PRN PRN Reason: Wheezing Aspirin (Aspirin 81 Mg Tab.Chew) 81 mg PO DAILY [facility] Last Admin: 07/28/25 08:48 Dose: 81 mg Atorvastatin Calcium (Atorvastatin Calcium 40 Mg Tablet) 40 mg PO BEDTIME [facility] Last Admin: 07/27/25 20:39 Dose: 40 mg Benzocaine (Throat Lozenge, Medicated Lozenge) 1 lozenge MUCOUS MEM Q2H PRN PRN Reason: Sore Throat Last Admin: 07/27/25 21:04 Dose: 1 lozenge Clopidogrel Bisulfate (Clopidogrel Bisulfate 75 Mg Tablet) 75 mg PO DAILY [facility] Last Admin: 07/28/25 08:45 Dose: 75 mg Cyanocobalamin (Cyanocobalamin (Vitamin B-12) 1,000 Mcg Tablet) 1,000 mcg PO DAILY [facility] Last Admin: 07/28/25 08:49 Dose: 1,000 mcg Empagliflozin (Empagliflozin 10 Mg Tablet) 10 mg PO DAILY [facility] Last Admin: 07/28/25 08:44 Dose: 10 mg Ergocalciferol (Ergocalciferol (Vitamin D2) 1,250 Mcg Capsule) 1,250 mcg PO Fr@0900 [facility] Stop: 09/09/25 09:01 Last Admin: 07/22/25 16:32 Dose: Not Given Ferrous Sulfate (Ferrous Sulfate 324 Mg Tablet.) 324 mg PO TID [facility] Last Admin: 07/28/25 08:49 Dose: 324 mg Fluticasone Propionate (Fluticasone Propionate Nasal 16 Gm [place]) 1 spray NOSTRIL-B DAILY [facility] Last Admin: 07/28/25 08:50 Dose: 1 spray Furosemide (Furosemide 40 Mg Tablet) 40 mg PO DAILY [facility] On Hold: 07/20/25 09:00 Furosemide (Furosemide 20 Mg Tablet) 20 mg PO DAILY [facility]; Protocol Last Admin: 07/28/25 08:44 Dose: 20 mg Gabapentin (Gabapentin 600 Mg Tablet) 600 mg PO TID [facility] Last Admin: 07/28/25 08:49 Dose: 600 mg Insulin Glargine (Insulin Glargine,Hum.Rec.Anlog 100 Unit/Ml 10 Ml Vial) 50 unit SUBCUT BEDTIME [facility] Last Admin: 07/27/25 20:39 Dose: 50 unit Insulin Glargine (Insulin Glargine,Hum.Rec.Anlog 100 Unit/Ml 10 Ml Vial) 10 unit SUBCUT DAILY [facility] Last Admin: 07/28/25 08:49 Dose: 10 unit Insulin Human Lispro (Insulin Lispro 100 Unit/Ml 3 Ml Vial) 0 unit SUBCUT QIDACHS [facility]; Protocol Last Admin: 07/28/25 08:51 Dose: Not Given Levofloxacin (Levofloxacin 750 Mg Tablet) 750 mg PO Q24H [facility] Stop: 07/29/25 13:59 Last Admin: 07/27/25 13:35 Dose: 750 mg Lorazepam (Lorazepam 0.5 Mg Tablet) 0.5 mg PO BID PRN PRN Reason: Anxiety Last Admin: 07/28/25 01:18 Dose: 0.5 mg Losartan Potassium (Losartan Potassium 25 Mg Tablet) 25 mg PO DAILY [facility] On Hold: 07/17/25 09:33 Last Admin: 07/17/25 08:19 Dose: 25 mg Magnesium Hydroxide (Milk Of Magnesia 30 Ml Oral.Susp) 30 ml PO DAILY PRN PRN Reason: Constipation Melatonin (Melatonin 3 Mg Tablet) 6 mg PO BEDTIME [facility] Last Admin: 07/27/25 20:37 Dose: 6 mg Metoprolol Succinate (Metoprolol Succinate Er 50 Mg Tab.Er.24h) 50 mg PO DAILY [facility] Last Admin: 07/28/25 08:48 Dose: Not Given Montelukast Sodium (Montelukast Sodium 10 Mg Tablet) 10 mg PO BEDTIME [facility] Last Admin: 07/27/25 20:39 Dose: 10 mg Pantoprazole Sodium (Pantoprazole Sodium 20 Mg Tablet.Dr) 40 mg PO DAILY [facility] Last Admin: 07/28/25 08:48 Dose: 40 mg Polyethylene Glycol (Polyethylene Glycol 3350 17 Gm Powd.Pack) 17 gm PO DAILY [facility] Last Admin: 07/28/25 08:52 Dose: Not Given Risperidone (Risperidone 1 Mg Tablet) 1 mg PO BID [facility] Last Admin: 07/28/25 08:45 Dose: 1 mg Tamsulosin HCl (Tamsulosin Hcl 0.4 Mg Capsule) 0.4 mg PO BEDTIME [facility] Last Admin: 07/27/25 20:39 Dose: 0.4 mg Thiamine HCl (Thiamine Hcl 100 Mg Tablet) 100 mg PO DAILY [facility] Last Admin: 07/28/25 08:45 Dose: 100 mg Tiotropium Sam[place] (Tiotropium [place] 2.5 Mcg 1 Puff/2.5 Mcg Mist.Inhal) 2 puff INHALE RDAILY [facility] Last Admin: 07/28/25 08:50 Dose: 2 puff Tizanidine HCl (Tizanidine Hcl 4 Mg Tablet) 2 mg PO BEDTIME [facility] Last Admin: 07/27/25 20:37 Dose: 2 mg Tramadol HCl (Tramadol Hcl 50 Mg Tablet) 50 mg PO Q6H PRN PRN Reason: severe left hip pain Last Admin: 07/28/25 01:08 Dose: 50 mg Trazodone HCl (Trazodone Hcl 50 Mg Tablet) 50 mg PO BEDTIME [facility]1 PRN PRN Reason: Insomnia Last Admin: 07/27/25 21:32 Dose: 50 mg Allergies Allergies Allergy/AdvReac Type Severity Reaction Status Date / Time Penicillins (PCN) AdvReac Unknown Verified 07/14/25 14:00 Assessment & Plan Assessment & Plan (1) RLL pneumonia: Status: Acute Code(s): J18.9 - Pneumonia, unspecified organism Plan Mr. Eden is a 75 year-old male who was initially brought to [facility] via EMS on [address] by police [place] was [place] the [place] inflicting laceration on left hand. No stitches required. He continued to self harm while in the ED. He reports he is hearing voices (reports male voice saying I want to see blood repeatedly), which then led to him acting on the voices thinking it may quiet them down. Although he endorses depressed mood in context of not having stable place to live and passive SI, he reports he does not want to but can't help if voices are ongoing. He reports he is not hearing voices now. We discussed risks, benefits and alternative treatment options. He agreed to start risperidone 1mg po BID. Hospital course: 07/19 continue tx. consult to hospitalist- left hip pain. no fall or injury. Updraft nebulizer as needed Patient with a history of asthma, not on any maintenance meds. Will start Spiriva 07/20: Patient found sitting on his bed with his feet on the floor and arms around his walker. He is irritable and tearful. He reports severe pain to his left hip. He rates his pain as 7/10 on the pain scale. Tramadol was increased to 50 mg Q6H as needed this morning. Patient repeatedly refused pain medication tramadol that his nurse offered at bedside. He eventually took the medication after intervention/education about his pain and treatment modalities by this provider. He denies anxiety or depression. He denies SI/HI/AH/VH. Continue current treatment regimen. PT consult made. 07/21: Reports 4/10 lower back and left hip pain. Cheerful and socializing with peers. Prednisone 40 mg daily x5 days ordered for pain. Continue current treatment regimen. Hortensia, Hospitalist notes she would order more imaging for musculoskeletal pain. 07/22/25: Meet with patient in the presence of big data lead in sensory room. Patient reports bearable pain on left buttock area, rated pain 2/20. Report he has some happy tears today after talking to his granddaughter who is 5 years as she prays for him to be better to be home soon with family. Report mood and sleep/appetite are good. Denies anxiety/depression or safety concern. He says he would rather stay in [place] instead of returning to [place]. Report that he can stay with her granddaughter who is 48 y.o in [place]. Explained to patient that he may not get good benefits for health insurance as he has not been here in [place] in a good period of time. Report he has been here more than 3 months. Patient is aware of potential family meeting next week on Friday at 1300 virtually and discharge to follow after. VSs stable, no SOB, O2Sat this morning 92% but improved later on of the day. Ambulate with wheelchair. Lam sociall appropriately with peers and staff and attended groups. 07/23/25: Patient slept for 5 hours, medication compliant, no side effects. He is reasonable, social and appropriate. Reports singing he people's vehicles saw about the pig/pork meat. Denies safety concerns. He was not happy regarding the roommate who was snoring loudly, and was not quiet at night which interfere with his sleep. Encourage patient to to use ear plugs she sees if they are helpful. Blood pressure is fluctuated. We will continue to monitor. Ambulating with a walker. Pain is under control. 07/24/25: Patient slept through the night, was compliant with medications, but not compliant with diabetic protocol. Patient has not care for his diet, blood sugar continued to be high, received coverage. Nursing reported the patient was dancing yesterday but has a tantrum moment over food for dinner yesterday, he threw the walker away which was taken away from the patient for safety issues. Patient requests the walker, explained to patient reason why he can not get walker. He walked with normal steady gait. Reports the pain on the hip is improving. Denies safety concerns. Continued to confirm that he wants to stay in [place]. Reported that his granddaughter will come in in person to have a meeting this week. Denies depression or anxiety, sleep is improving. Changing from 5 to 15 minutes safety checks 07/25/25:Patient slept well, compliant with medication. Denies side effects. POC remains high, asymptomatic, received coverage per Protocol with extra 4 unit of Insulin prior dinner. Denies pain, walking with steady gait. Denies anxiety/depression. Denies SI/SIB/HI/AVH. Patient reports that he has been in this country for 10 [place]. Confirm he wants to stay in [place]. Do not want to return to [place]. Per , meeting with family went well- virtual. Patient will return to [place]. will work on aftercare plan and FLU appointment. 07/26/25: In person Web Marketing Manager utilized. Reports improve in sleep, , medication compliant, denies safety concerns, denies depression and anxiety. Denies pain. Patient reported that he did not attend to family meeting yesterday. Educate patient on healthy food/fluid choices as his blood sugar was elevated much more higher than normal. He spent sometime napping in his room. No behavior issues. Reports sore throat and headache yesterday. Denies headache this morning but reported that he was coughing at night and has sore throat now. 07/27: Nursing also reports that the patient's sugar significantly increased while on prednisone, but has been trending down. Blood glucose in the past 2 days between 413 and 291. Continue current treatment regimen. 07/28: He reports ?mild? sore throat which started this morning. No associated symptoms. Continue current treatment regimen. Plan: Bilateral hip pain-resolved Patient does not have any radiculopathy, numbness or tingling in his legs. He is ambulating at baseline without any antalgic gait, not using a walker. Denying any hip pain. CKD 3B Stable. Avoid nephrotoxins. Right lower lobe pneumonia Noted on chest x-ray Continue Levaquin 750 daily for 5 days due to PCN allergy Updraft nebulizer as needed Patient with a history of asthma, not on any maintenance meds. Continue Spiriva Improving Laceration to dorsum of left hand and fingers/scratch abrasions to calf. Continue local wound care Wound care following. No evidence of infection Coronary artery disease/history of stroke/CHF/hypertension Continue aspirin, Plavix, atorvastatin and Jardiance. Continue metoprolol 50 mg daily extended release Continue losartan at 25 mg daily, blood pressure is stable Continue Lasix twice daily at reduced dose in pm. Daily weights. Weight stable. 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 Add glargine 10 units in the morning. Recent A1c 9.1 Can consider starting Trulicity outpatient Continue gabapentin 600 t.i.d. Blood sugars elevated due to prednisone- last dose today Chronic kidney disease Stage 3 B Baseline 1.2 Avoid nephrotoxins Continue to monitor-nephrology consult pending BPH Continue tamsulosin GERD Continue Protonix Vitamin-D deficiency Continue vitamin-D daily Patient educated on: therapeutic strategies Reason for continued inpatient stay Substantial Risk for: rapid decompensation Time Spent With Patient Time: Total time managing care of this patient today ____ minutes.
[2025-07-28 11:21] LABS: Glucose, Whole Blood 264 mg/dL (60-115)
[2025-07-28] MEDS: Throat Lozenge, Medicated LOZENGE 1 LOZENGE MUCOUS MEM ×3 (11:59→23:53)
[2025-07-28 16:17] LABS: Glucose, Whole Blood 359 mg/dL (60-115)
[2025-07-28 20:00] LABS: Glucose, Whole Blood 380 mg/dL (60-115)
[2025-07-28] MEDS: Insulin Glargine,Hum.rec.anlog 100 UNIT/ML 10 ML VIAL 50 UNIT SUBCUT (20:03)
[2025-07-28 20:11] VITALS: BP 144/63; PULSE 77; RESP 17; TEMP 36.2; O2SAT 96
[2025-07-28 23:52] LABS: Glucose, Whole Blood 277 mg/dL (60-115)
[2025-07-28] MEDS: Albuterol Sulfate 90 MCG 8 GM INHALER 2 PUFF INHALE (23:54)
[2025-07-29] VITALS: BP 170/55; PULSE 97; RESP 17; TEMP 36.1; O2SAT 94
--- NOTE | 2025-07-29 01:56 | PC.NURSE ---
Patient at 2345 came out of his room, complaining of sore throat, he was sitting right in front of this remote mortgage underwriter in the milieu got up certainly took one step lowered himself to the floor, reported while crying that he is sick needs medical attention, we got him up safely in chair when asked why did he lowered himself, first he reported he tripped, then he reported he was dizzy, and third he reported he couldn't stand due to his back pain. BP 170/55, HR 97, POC 277. Provider notified/no new order/patient was placed on 5 minutes check because he requested walker, PRN lozenge, Tylenol 650 mg, Tramadol 50 mg, and Ventolin administered as ordered. Self lowering appears to be attention seeking behavior as it has happened in the past as well. Patient was encouraged to lie down in bed, patient complied, currently in bed resting, will continue to monitor the patient.
[2025-07-29 06:33] LABS: Glucose, Whole Blood 290 mg/dL (60-115)
[2025-07-29 06:38] VITALS: BMI 39.3
[2025-07-29 07:48] VITALS: BP 125/58
[2025-07-29] MEDS: Tiotropium Bromide 2.5 mcg 1 PUFF/2.5 MCG MIST.INHAL 2 PUFF INHALE (07:48)
[2025-07-29] MEDS: Ferrous Sulfate 324 MG TABLET.DR PO ×3 (07:49→20:00)
[2025-07-29 07:50] VITALS: BP 125/58; PULSE 81
[2025-07-29] MEDS: Metoprolol Succinate ER 50 MG TAB.ER.24H PO (07:50)
[2025-07-29] MEDS: Insulin Glargine,Hum.rec.anlog 100 UNIT/ML 10 ML VIAL 10 UNIT SUBCUT (07:54)
[2025-07-29 08:00] VITALS: BP 125/58; PULSE 81; RESP 17; TEMP 36.2; O2SAT 95
[2025-07-29 11:27] LABS: Glucose, Whole Blood 285 mg/dL (60-115)
[2025-07-29 16:08] LABS: Glucose, Whole Blood 277 mg/dL (60-115)
--- NOTE | 2025-07-29 16:27 | P.PNPSI_ITS ---
Subjective Subjective Date of Service: 07/29/25 Reason For Visit: Depression Subjective Notes: Conditional Voluntary Guardianship: No Medical Problems Affecting Mental Status: No Interim History: Medical record and nursing notes reviewed; case discussed during rounds with team/nursing staff, and met with patient for supportive therapy/psychoeducation, as well as medication management. In-person patient office rep presence during want to on assessment. Patient reports slept okay last night, appetite good. Denies side effects from medications. Reported that fell last night and he has his head badly to the wall. Per nursing, patient lowered himself to the floor. He was irritable agitated at times yesterday. Refused MiraLax this morning. Reports head take 2/10 where he hit the wall yesterday. Patient having questioned regarding when he is discharged. Informed the patient that adoption social worker is working on sending the referral out. Pending results. Medication Compliance: Yes (but refused Miralax ) Side effects from medications: No Attending Groups: Yes Review of Systems Acute medical concerns: No Medical Review of Systems: unchanged Review of Systems Review of Systems Const : no body aches, no chills, no excessive sweating and no fatigue Eyes: no blurry vision and no change in vision ENT: no bleeding gums and no change in voice, no dizziness Card: no chest pain, ?no shortness of breath, no orthopnea, no PND Resp: report cough last night with sore throat now, ?no excessive phlegm production, no SOB GI: no abdominal pain and no nausea, no vomiting : no hematuria, no urinary frequency and no difficulty voiding Musc: no abnormal gait, no bone pain Neuro: no ?abnormal movements, no weakness,and +behavioral changes Psych: no behavioral changes and no change in appetite Endo: no change in body appearance, no cold intolerance, Yes all other systems are reviewed and are negative Mental Status Exam Mental Status Exam Narrative: Appearance: Casually dressed, adequate hygiene Behavior: Calm cooperative throughout the interview. Pleasant. Appropriate eye contact, no signs of psychomotor agitation or psychomotor retardation present Speech: Normal volume and prosody Thought process: Linear Thought content: WNL. organized Mood: Good Affect: mood-congruent SI:denies HI:denies VH/AH:none Delusions: None Insight/judgment: Improved Memory/cog: Alert and oriented. grossly intact to conversational testing. Thai moca was 17/30 on 07/27/2025 Diagnostics Vital Signs (24Hr): Vital Signs - 24 hr 07/28/25 20:11 07/29/25 00:00 07/29/25 07:48 Temperature 97.2 F 97 F Pulse Rate 77 97 Respiratory Rate 17 17 Blood Pressure 144/63 H 170/55 H 125/58 L Pulse Oximetry 96 94 Oxygen Delivery Method Room Air Room Air 07/29/25 07:50 07/29/25 08:00 Temperature 97.2 F Pulse Rate 81 81 Respiratory Rate 17 Blood Pressure 125/58 L 125/58 L Pulse Oximetry 95 Oxygen Delivery Method Room Air BMI result Body Mass Index 39.3 Labs 07/21/25 13:39 Labs: Laboratory Results - last 48 hr 07/21/25 07/27/25 07/28/25 13:39 20:45 06:20 POC Glucose 322 H 146 H PTH Related Protein 8 L 07/28/25 07/28/25 07/28/25 11:15 16:12 19:56 POC Glucose 264 H 359 H* 380 H* PTH Related Protein 07/28/25 07/29/25 07/29/25 23:49 06:29 11:23 POC Glucose 277 H 290 H 285 H PTH Related Protein 07/29/25 16:03 POC Glucose 277 H PTH Related Protein Imaging Radiology Impressions: ITS Impressions Chest X-Ray 07/15/25 15:24 IMPRESSION: Clear lungs. Electronically signed by: Brice Bunch MD 07/15/2025 03:40 PM EDT RP Hip/Pelvis X-Ray 07/19/25 11:20 IMPRESSION: Patchy increased sclerosis which may be due to renal osteodystrophy. Other etiologies including metastatic disease are not excluded. Clinical correlation is recommended. Electronically signed by: Brice Bunch MD 07/19/2025 11:49 AM EDT RP Lumbar Spine X-Ray 07/19/25 11:20 IMPRESSION: Mild degenerative disc disease. Electronically signed by: Brice Bunch MD 07/19/2025 11:50 AM EDT RP Chest X-Ray 07/19/25 11:33 IMPRESSION: Right lower lobe pneumonia. Follow-up is recommended to document resolution. Electronically signed by: Brice Bunch MD 07/19/2025 11:44 AM EDT RP Abdomen/Pelvis CT 07/21/25 15:26 IMPRESSION: Lobulated fat-containing umbilical hernia. Atelectasis versus airspace disease, lung bases. Abundant stool without intestinal obstruction pattern. Simple cyst, left kidney. Degenerative changes both hips with questionable trochanter bursitis. Multilevel thoracolumbar spondylosis resulting in central spinal canal stenosis. Please for to the CT lumbar spine. Fleischner guidelines were followed. 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 Mild narrowing of neural foramina bilaterally at along the lumbar spinal canal. The findings are slightly worse on the right at the T12-L1 disc level there is a right facet joint hypertrophy extending into the neural foramina and a small bony spur extending into right lateral recess at the L2-3 disc level. No abnormal enhancement seen within the lower dorsal or lumbar spinal canal or the region of conus medullaris. If patient has persistent radiculopathy and numbness and tingling in the legs further evaluation with neurology may be helpful. Electronically signed by: Gabo Bush MD 07/22/2025 07:26 AM EDT RP Medications Medications Current Medications Acetaminophen (Acetaminophen 325 Mg Tablet) 650 mg PO Q6H PRN PRN Reason: Headache/Pain, Scale 1-10 Last Admin: 07/29/25 01:07 Dose: 650 mg Al Hydroxide/Mg Hydroxide (Magnesium Hydrox/Alum Hydrox 30 Ml Oral.Susp) 30 ml PO Q6H PRN PRN Reason: Heartburn/Nausea Last Admin: 07/25/25 09:57 Dose: 30 ml Albuterol Sulfate (Albuterol Sulfate 90 Mcg 8 Gm Inhaler) 2 puff INHALE RQ4H PRN PRN Reason: SOB/Wheezing Last Admin: 07/28/25 23:54 Dose: 2 puff Aspirin (Aspirin 81 Mg Tab.Chew) 81 mg PO DAILY MARCIA Last Admin: 07/29/25 07:49 Dose: 81 mg Atorvastatin Calcium (Atorvastatin Calcium 40 Mg Tablet) 40 mg PO BEDTIME MARCIA Last Admin: 07/28/25 20:04 Dose: 40 mg Benzocaine (Throat Lozenge, Medicated Lozenge) 1 lozenge MUCOUS MEM Q2H PRN PRN Reason: Sore Throat Last Admin: 07/28/25 23:53 Dose: 1 lozenge Clopidogrel Bisulfate (Clopidogrel Bisulfate 75 Mg Tablet) 75 mg PO DAILY REPLACED BY [facility] Last Admin: 07/29/25 07:49 Dose: 75 mg Cyanocobalamin (Cyanocobalamin (Vitamin B-12) 1,000 Mcg Tablet) 1,000 mcg PO DAILY REPLACED BY [facility] Last Admin: 07/29/25 07:50 Dose: 1,000 mcg Empagliflozin (Empagliflozin 10 Mg Tablet) 10 mg PO DAILY REPLACED BY [facility] Last Admin: 07/29/25 07:50 Dose: 10 mg Ergocalciferol (Ergocalciferol (Vitamin D2) 1,250 Mcg Capsule) 1,250 mcg PO Fr@0900 REPLACED BY [facility] Stop: 09/09/25 09:01 Last Admin: 07/29/25 07:49 Dose: 1,250 mcg Ferrous Sulfate (Ferrous Sulfate 324 Mg Tablet.Dr) 324 mg PO TID REPLACED BY [facility] Last Admin: 07/29/25 15:10 Dose: 324 mg Fluticasone Propionate (Fluticasone Propionate Nasal 16 Gm [place]) 1 spray NOSTRIL-B DAILY REPLACED BY [facility] Last Admin: 07/29/25 08:02 Dose: 1 spray Furosemide (Furosemide 40 Mg Tablet) 40 mg PO DAILY REPLACED BY [facility] On Hold: 07/20/25 09:00 Furosemide (Furosemide 20 Mg Tablet) 20 mg PO DAILY REPLACED BY [facility]; Protocol Last Admin: 07/29/25 07:48 Dose: 20 mg Gabapentin (Gabapentin 600 Mg Tablet) 600 mg PO TID REPLACED BY [facility] Last Admin: 07/29/25 15:10 Dose: 600 mg Insulin Glargine (Insulin Glargine,Hum.Rec.Anlog 100 Unit/Ml 10 Ml Vial) 50 unit SUBCUT BEDTIME REPLACED BY [facility] Last Admin: 07/28/25 20:03 Dose: 50 unit Insulin Glargine (Insulin Glargine,Hum.Rec.Anlog 100 Unit/Ml 10 Ml Vial) 10 unit SUBCUT DAILY REPLACED BY [facility] Last Admin: 07/29/25 07:54 Dose: 10 unit Insulin Human Lispro (Insulin Lispro 100 Unit/Ml 3 Ml Vial) 0 unit SUBCUT QIDACHS REPLACED BY [facility]; Protocol Last Admin: 07/29/25 11:29 Dose: 6 unit Lorazepam (Lorazepam 0.5 Mg Tablet) 0.5 mg PO BID PRN PRN Reason: Anxiety Last Admin: 07/28/25 01:18 Dose: 0.5 mg Losartan Potassium (Losartan Potassium 25 Mg Tablet) 25 mg PO DAILY REPLACED BY [facility] On Hold: 07/17/25 09:33 Last Admin: 07/17/25 08:19 Dose: 25 mg Magnesium Hydroxide (Milk Of Magnesia 30 Ml Oral.Susp) 30 ml PO DAILY PRN PRN Reason: Constipation Melatonin (Melatonin 3 Mg Tablet) 6 mg PO BEDTIME REPLACED BY [facility] Last Admin: 07/28/25 20:06 Dose: 6 mg Metoprolol Succinate (Metoprolol Succinate Er 50 Mg Tab.Er.24h) 50 mg PO DAILY REPLACED BY [facility] Last Admin: 07/29/25 07:50 Dose: 50 mg Montelukast Sodium (Montelukast Sodium 10 Mg Tablet) 10 mg PO BEDTIME REPLACED BY [facility] Last Admin: 07/28/25 20:05 Dose: 10 mg Pantoprazole Sodium (Pantoprazole Sodium 20 Mg Tablet.Dr) 40 mg PO DAILY REPLACED BY [facility] Last Admin: 07/29/25 07:50 Dose: 40 mg Polyethylene Glycol (Polyethylene Glycol 3350 17 Gm Powd.Pack) 17 gm PO DAILY REPLACED BY [facility] Last Admin: 07/29/25 08:03 Dose: Not Given Risperidone (Risperidone 1 Mg Tablet) 1 mg PO BID REPLACED BY [facility] Last Admin: 07/29/25 08:28 Dose: 1 mg Tamsulosin HCl (Tamsulosin Hcl 0.4 Mg Capsule) 0.4 mg PO BEDTIME REPLACED BY [facility] Last Admin: 07/28/25 20:04 Dose: 0.4 mg Thiamine HCl (Thiamine Hcl 100 Mg Tablet) 100 mg PO DAILY REPLACED BY [facility] Last Admin: 07/29/25 07:49 Dose: 100 mg Tiotropium [place] (Tiotropium [place] 2.5 Mcg 1 Puff/2.5 Mcg Mist.Inhal) 2 puff INHALE RDAILY REPLACED BY [facility] Last Admin: 07/29/25 07:48 Dose: 2 puff Tizanidine HCl (Tizanidine Hcl 4 Mg Tablet) 2 mg PO BEDTIME REPLACED BY [facility] Last Admin: 07/28/25 20:05 Dose: 2 mg Tramadol HCl (Tramadol Hcl 50 Mg Tablet) 50 mg PO Q6H PRN PRN Reason: severe left hip pain Last Admin: 07/28/25 23:53 Dose: 50 mg Trazodone HCl (Trazodone Hcl 50 Mg Tablet) 50 mg PO BEDTIME MRX1 PRN PRN Reason: Insomnia Last Admin: 07/27/25 21:32 Dose: 50 mg Allergies Allergies Allergy/AdvReac Type Severity Reaction Status Date / Time Penicillins (PCN) AdvReac Unknown Verified 07/14/25 14:00 Assessment & Plan Assessment & Plan (1) RLL pneumonia: Status: Acute Code(s): J18.9 - Pneumonia, unspecified organism Plan Mr. Eden is a 75 year-old male who was initially brought to [facility] via EMS on [address] by police after [place] was [place] the park inflicting laceration on left hand. No stitches required. He continued to self harm while in the ED. He reports he is hearing voices (reports male voice saying I want to see blood repeatedly), which then led to him acting on the voices thinking it may quiet them down. Although he endorses depressed mood in context of not having stable place to live and passive SI, he reports he does not want to but can't help if voices are ongoing. He reports he is not hearing voices now. We discussed risks, benefits and alternative treatment options. He agreed to start risperidone 1mg po BID. Hospital course: 07/19 continue tx. consult to hospitalist- left hip pain. no fall or injury. Updraft nebulizer as needed Patient with a history of asthma, not on any maintenance meds. Will start Spiriva 07/20: Patient found sitting on his bed with his feet on the floor and arms around his walker. He is irritable and tearful. He reports severe pain to his left hip. He rates his pain as 7/10 on the pain scale. Tramadol was increased to 50 mg Q6H as needed this morning. Patient repeatedly refused pain medication tramadol that his nurse offered at bedside. He eventually took the medication after intervention/education about his pain and treatment modalities by this provider. He denies anxiety or depression. He denies SI/HI/AH/VH. Continue current treatment regimen. PT consult made. 07/21: Reports 4/10 lower back and left hip pain. Cheerful and socializing with peers. Prednisone 40 mg daily x5 days ordered for pain. Continue current treatment regimen. [place] Hospitalist notes she would order more imaging for musculoskeletal pain. 07/22/25: Meet with patient in the presence of scientific laboratory supervisor in sensory room. Patient reports bearable pain on left buttock area, rated pain 2/20. Report he has some happy tears today after talking to his granddaughter who is 5 years as she prays for him to be better to be home soon with family. Report mood and sleep/appetite are good. Denies anxiety/depression or safety concern. He says he would rather stay in [place] instead of returning to [place]. Report that he can stay with her granddaughter who is 48 y.o in [place]. Explained to patient that he may not get good benefits for health insurance as he has not been here in [place] in a good period of time. Report he has been here more than 3 months. Patient is aware of potential family meeting next week on Friday at 1300 virtually and discharge to follow after. VSs stable, no SOB, O2Sat this morning 92% but improved later on of the day. Ambulate with wheelchair. social Laml appropriately with peers and staff and attended groups. 07/23/25: Patient slept for 5 hours, medication compliant, no side effects. He is reasonable, social and appropriate. Reports singing he people's vehicles saw about the pig/pork meat. Denies safety concerns. He was not happy regarding the roommate who was snoring loudly, and was not quiet at night which interfere with his sleep. Encourage patient to to use ear plugs she sees if they are helpful. Blood pressure is fluctuated. We will continue to monitor. Ambulating with a walker. Pain is under control. 07/24/25: Patient slept through the night, was compliant with medications, but not compliant with diabetic protocol. Patient has not care for his diet, blood sugar continued to be high, received coverage. Nursing reported the patient was dancing yesterday but has a tantrum moment over food for dinner yesterday, he threw the walker away which was taken away from the patient for safety issues. Patient requests the walker, explained to patient reason why he can not get walker. He walked with normal steady gait. Reports the pain on the hip is improving. Denies safety concerns. Continued to confirm that he wants to stay in [place]. Reported that his granddaughter will come in in person to have a meeting this week. Denies depression or anxiety, sleep is improving. Changing from 5 to 15 minutes safety checks 07/25/25:Patient slept well, compliant with medication. Denies side effects. POC remains high, asymptomatic, received coverage per Protocol with extra 4 unit of Insulin prior dinner. Denies pain, walking with steady gait. Denies anxiety/depression. Denies SI/SIB/HI/AVH. Patient reports that he has been in this country for 10 years. Confirm he wants to stay in [place]. Do not want to return to [place]. Per , meeting with family went well- virtual. Patient will return to [place]. will work on aftercare plan and FLU appointment. 07/26/25: In person Work Study Student utilized. Reports improve in sleep, , medication compliant, denies safety concerns, denies depression and anxiety. Denies pain. Patient reported that he did not attend to family meeting yesterday. Educate patient on healthy food/fluid choices as his blood sugar was elevated much more higher than normal. He spent sometime napping in his room. No behavior issues. Reports sore throat and headache yesterday. Denies headache this morning but reported that he was coughing at night and has sore throat now. 07/27: Nursing also reports that the patient's sugar significantly increased while on prednisone, but has been trending down. Blood glucose in the past 2 days between 413 and 291. Continue current treatment regimen. 07/28: He reports ?mild? sore throat which started this morning. No associated symptoms. Continue current treatment regimen. 07/29/25: In-person patient office rep presence during want to on assessment. Patient reports slept okay last night, appetite good. Denies side effects from medications. Denies anxiety or depression. Sound having sore throat. Reported that fell last night and he has his head badly to the wall. Per nursing, patient lowered himself to the floor. He was irritable agitated at times yesterday. Refused MiraLax this morning. Reports head take 2/10 where he hit the wall yesterday. Patient having questioned regarding when he is discharged. Informed the patient that adoption social worker is working on sending the referral out. Pending results. Plan: Bilateral hip pain-resolved Patient does not have any radiculopathy, numbness or tingling in his legs. He is ambulating at baseline without any antalgic gait, not using a walker. Denying any hip pain. CKD 3B Stable. Avoid nephrotoxins. Right lower lobe pneumonia Noted on chest x-ray Continue Levaquin 750 daily for 5 days due to PCN allergy Updraft nebulizer as needed Patient with a history of asthma, not on any maintenance meds. Continue Spiriva Improving Laceration to dorsum of left hand and fingers/scratch abrasions to calf. Continue local wound care Wound care following. No evidence of infection Coronary artery disease/history of stroke/CHF/hypertension Continue aspirin, Plavix, atorvastatin and Jardiance. Continue metoprolol 50 mg daily extended release Continue losartan at 25 mg daily, blood pressure is stable Continue Lasix twice daily at reduced dose in pm. Daily weights. Weight stable. 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 Add glargine 10 units in the morning. Recent A1c 9.1 Can consider starting Trulicity outpatient Continue gabapentin 600 t.i.d. Blood sugars elevated due to prednisone- last dose today Chronic kidney disease Stage 3 B Baseline 1.2 Avoid nephrotoxins Continue to monitor-nephrology consult pending BPH Continue tamsulosin GERD Continue Protonix Vitamin-D deficiency Continue vitamin-D daily Patient educated on: diagnosis, medication risk/benefits and therapeutic strategies Informed Consent: understands Reason for continued inpatient stay Substantial Risk for: med/psych decompensation Time Spent With Patient Time: Total time managing care of this patient today ____ minutes.
[2025-07-29] MEDS: Throat Lozenge, Medicated LOZENGE 1 LOZENGE MUCOUS MEM (17:50)
[2025-07-29 19:00] LABS: Anion Gap 15 (12-20); Blood Urea Nitrogen 68 mg/dL (9-16); Calcium 9.6 mg/dL (8.4-10.2); Carbon Dioxide 27 mmol/L (22-29); Chloride 99 mmol/L (96-108); Creatinine Clr Calc Pharmacy 44.5; Estimated Glomerular Filt Rate 43; Potassium 5.5 mmol/L (3.3-5.1); Sodium 135 mmol/L (135-145)
[2025-07-29 19:51] LABS: Glucose, Whole Blood 344 mg/dL (60-115)
[2025-07-29 19:58] VITALS: BP 138/58; PULSE 82; TEMP 35.9; O2SAT 95
[2025-07-29] MEDS: Insulin Glargine,Hum.rec.anlog 100 UNIT/ML 10 ML VIAL 50 UNIT SUBCUT (20:01)
--- NOTE | 2025-07-29 20:58 | PM.EVENT ---
Event Note Date of Service: 07/29/25 Event Note: Hospitalist consult placed for elevated creatinine again and elevated BUN. Creatinine 1.59, near baseline, patient has CKD 3B. Previous nephrology consult for elevated creatinine on 07/21/25 as below: Patient has history of CKD stage IIIB, in the setting of significant vascular disease including CAD, stroke I would suspect his CKD is secondary to chronic atherosclerotic renovascular disease. Patient has a diagnosis of CKD stage IIIB that means his GFR is between 30-45 at baseline. Currently his GFR is 50 which seems to be better than his baseline. His urinalysis is clean, no cells, no protein. Would withhold any further inpatient workup at this point. Avoid nephrotoxic agents, dose all the medication according to GFR. GFR is currently 43, which falls within range for his baseline CKD. Pt currently with likley viral illness and not hydrating appropriately. encourage PO fluids. Potassium 5.5, lokelma 10mg x1 ordered. repeat BMP in AM. Thank you for consult. Will follow AM labs. Time Spent With Patient Time: Total time managing care of this patient today ____ minutes.
--- NOTE | 2025-07-30 | ECG_ITS ---
Test Reason : Chest pain Blood Pressure : */* mmHG Vent. Rate : 78 BPM Atrial Rate : 78 BPM P-R Int : 212 ms QRS Dur : 160 ms QT Int : 410 ms P-R-T Axes : 55 -69 62 degrees QTcB Int : 467 ms Sinus rhythm with 1st degree A-V block Left axis deviation Non-specific intra-ventricular conduction block Minimal voltage criteria for LVH, may be normal variant ( Twining product ) Abnormal ECG No previous ECGs available Referred By: Lam Dietz Electronically Signed By: NEIDA GARCIA MD
[2025-07-30] MEDS: Albuterol Sulfate 90 MCG 8 GM INHALER 2 PUFF INHALE (00:28)
[2025-07-30] MEDS: Throat Lozenge, Medicated LOZENGE 1 LOZENGE MUCOUS MEM ×2 (00:30→20:15)
[2025-07-30 06:00] VITALS: BMI 39.1
[2025-07-30 06:39] LABS: Glucose, Whole Blood 214 mg/dL (60-115)
[2025-07-30 08:34] LABS: Anion Gap 12 (12-20); Blood Urea Nitrogen 62 mg/dL (9-16); Calcium 9.3 mg/dL (8.4-10.2); Carbon Dioxide 28 mmol/L (22-29); Chloride 102 mmol/L (96-108); Creatinine Clr Calc Pharmacy 42.3; Estimated Glomerular Filt Rate 40; Potassium 5.1 mmol/L (3.3-5.1); Sodium 137 mmol/L (135-145)
[2025-07-30 09:08] VITALS: BP 127/60; PULSE 95; RESP 14; TEMP 36.4; O2SAT 94
[2025-07-30] MEDS: Ferrous Sulfate 324 MG TABLET.DR PO ×3 (09:09→20:15)
[2025-07-30] MEDS: Metoprolol Succinate ER 50 MG TAB.ER.24H PO (09:09)
[2025-07-30] MEDS: Tiotropium Bromide 2.5 mcg 1 PUFF/2.5 MCG MIST.INHAL 2 PUFF INHALE (09:11)
[2025-07-30] MEDS: Insulin Glargine,Hum.rec.anlog 100 UNIT/ML 10 ML VIAL 10 UNIT SUBCUT (09:12)
[2025-07-30 11:39] LABS: Glucose, Whole Blood 220 mg/dL (60-115)
[2025-07-30 12:24] VITALS: BP 133/63; PULSE 78; RESP 14; TEMP 36.2; O2SAT 92
--- NOTE | 2025-07-30 13:40 | P.PNPSI_ITS ---
Subjective Subjective Date of Service: 07/30/25 Reason For Visit: Depression Interim History: Patient seen with in person modeling agent. He is complaining of chest pain on the left side of his chest. He says it is burning then points to it going to his left flank area then his leg. He also says he has pain in his right flank area. Patient also reports SOB. Not in distress. Also says his throat is hurting. Patient reportedly somatically preoccupied. No fevers. VSS. Checked EKG, chest XR pending. His mood is low he says. He is visible on the unit. Denies SI. Review of Systems Review of Systems Const : no body aches, no chills, no excessive sweating and no fatigue Eyes: no blurry vision and no change in vision ENT: no bleeding gums and no change in voice, no dizziness Card: no chest pain, ?no shortness of breath, no orthopnea, no PND Resp: report cough last night with sore throat now, ?no excessive phlegm production, no SOB GI: no abdominal pain and no nausea, no vomiting : no hematuria, no urinary frequency and no difficulty voiding Musc: no abnormal gait, no bone pain Neuro: no ?abnormal movements, no weakness,and +behavioral changes Psych: no behavioral changes and no change in appetite Endo: no change in body appearance, no cold intolerance, Yes all other systems are reviewed and are negative Mental Status Exam Mental Status Exam Narrative: Appearance: Casually dressed, adequate hygiene Behavior: Calm cooperative throughout the interview. Pleasant. Appropriate eye contact, no signs of psychomotor agitation or psychomotor retardation present Speech: Normal volume and prosody Thought process: Linear Thought content: WNL. organized Mood: Good Affect: mood-congruent SI:denies HI:denies VH/AH:none Delusions: None Insight/judgment: Improved Memory/cog: Alert and oriented. grossly intact to conversational testing. Yi moca was 17/30 on 07/27/2025 Diagnostics Vital Signs (24Hr): Vital Signs - 24 hr 07/29/25 19:58 07/30/25 09:08 07/30/25 12:24 Temperature 96.6 F L 97.5 F 97.1 F Pulse Rate 82 95 78 Respiratory Rate 14 14 Blood Pressure 138/58 L 127/60 133/63 Pulse Oximetry 95 94 92 Oxygen Delivery Method Room Air Room Air Room Air BMI result Body Mass Index 39.1 Labs 07/30/25 08:03 Labs: Laboratory Results - last 48 hr 07/28/25 07/28/25 07/28/25 16:12 19:56 23:49 Sodium Potassium Chloride Carbon Dioxide Anion Gap BUN Creatinine Estim Creat Clear Calc Estimated GFR POC Glucose 359 H* 380 H* 277 H Random Glucose Calcium 07/29/25 07/29/25 07/29/25 06:29 11:23 16:03 Sodium Potassium Chloride Carbon Dioxide Anion Gap BUN Creatinine Estim Creat Clear Calc Estimated GFR POC Glucose 290 H 285 H 277 H Random Glucose Calcium 07/29/25 07/29/25 07/30/25 18:22 19:47 06:24 Sodium 135 Potassium 5.5 H Chloride 99 Carbon Dioxide 27 Anion Gap 15 BUN 68 H Creatinine 1.59 H Estim Creat Clear Calc 44.5 Estimated GFR 43 POC Glucose 344 H 214 H Random Glucose 359 H* Calcium 9.6 07/30/25 07/30/25 08:03 11:36 Sodium 137 Potassium 5.1 Chloride 102 Carbon Dioxide 28 Anion Gap 12 BUN 62 H Creatinine 1.67 H Estim Creat Clear Calc 42.3 Estimated GFR 40 POC Glucose 220 H Random Glucose 212 H Calcium 9.3 Imaging Radiology Impressions: ITS Impressions Chest X-Ray 07/15/25 15:24 IMPRESSION: Clear lungs. Electronically signed by: Brice Bunch MD 07/15/2025 03:40 PM EDT RP Hip/Pelvis X-Ray 07/19/25 11:20 IMPRESSION: Patchy increased sclerosis which may be due to renal osteodystrophy. Other etiologies including metastatic disease are not excluded. Clinical correlation is recommended. Electronically signed by: Brice Bunch MD 07/19/2025 11:49 AM EDT RP Lumbar Spine X-Ray 07/19/25 11:20 IMPRESSION: Mild degenerative disc disease. Electronically signed by: Brice Bunch MD 07/19/2025 11:50 AM EDT RP Chest X-Ray 07/19/25 11:33 IMPRESSION: Right lower lobe pneumonia. Follow-up is recommended to document resolution. Electronically signed by: Brice Bunch MD 07/19/2025 11:44 AM EDT RP Abdomen/Pelvis CT 07/21/25 15:26 IMPRESSION: Lobulated fat-containing umbilical hernia. Atelectasis versus airspace disease, lung bases. Abundant stool without intestinal obstruction pattern. Simple cyst, left kidney. Degenerative changes both hips with questionable trochanter bursitis. Multilevel thoracolumbar spondylosis resulting in central spinal canal stenosis. Please for to the CT lumbar spine. Fleischner guidelines were followed. 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 Mild narrowing of neural foramina bilaterally at along the lumbar spinal canal. The findings are slightly worse on the right at the T12-L1 disc level there is a right facet joint hypertrophy extending into the neural foramina and a small bony spur extending into right lateral recess at the L2-3 disc level. No abnormal enhancement seen within the lower dorsal or lumbar spinal canal or the region of conus medullaris. If patient has persistent radiculopathy and numbness and tingling in the legs further evaluation with neurology may be helpful. Electronically signed by: Gabo Bush MD 07/22/2025 07:26 AM EDT RP Medications Medications Current Medications Acetaminophen (Acetaminophen 325 Mg Tablet) 650 mg PO Q6H PRN PRN Reason: Headache/Pain, Scale 1-10 Last Admin: 07/29/25 01:07 Dose: 650 mg Al Hydroxide/Mg Hydroxide (Magnesium Hydrox/Alum Hydrox 30 Ml Oral.Susp) 30 ml PO Q6H PRN PRN Reason: Heartburn/Nausea Last Admin: 07/25/25 09:57 Dose: 30 ml Albuterol Sulfate (Albuterol Sulfate 90 Mcg 8 Gm Inhaler) 2 puff INHALE RQ4H PRN PRN Reason: SOB/Wheezing Last Admin: 07/30/25 00:28 Dose: 2 puff Aspirin (Aspirin 81 Mg Tab.Chew) 81 mg PO DAILY MARCIA Last Admin: 07/30/25 09:09 Dose: 81 mg Atorvastatin Calcium (Atorvastatin Calcium 40 Mg Tablet) 40 mg PO BEDTIME MARCIA Last Admin: 07/29/25 20:00 Dose: 40 mg Benzocaine (Throat Lozenge, Medicated Lozenge) 1 lozenge MUCOUS MEM Q2H PRN PRN Reason: Sore Throat Last Admin: 07/30/25 00:30 Dose: 1 lozenge Clopidogrel Bisulfate (Clopidogrel Bisulfate 75 Mg Tablet) 75 mg PO DAILY COUNT INCLUDES THE [facility] Last Admin: 07/30/25 09:10 Dose: 75 mg Cyanocobalamin (Cyanocobalamin (Vitamin B-12) 1,000 Mcg Tablet) 1,000 mcg PO DAILY COUNT INCLUDES THE [facility] Last Admin: 07/30/25 09:10 Dose: 1,000 mcg Empagliflozin (Empagliflozin 10 Mg Tablet) 10 mg PO DAILY COUNT INCLUDES THE [facility] Last Admin: 07/30/25 09:10 Dose: 10 mg Ergocalciferol (Ergocalciferol (Vitamin D2) 1,250 Mcg Capsule) 1,250 mcg PO Fr@0900 COUNT INCLUDES THE [facility] Stop: 09/09/25 09:01 Last Admin: 07/29/25 07:49 Dose: 1,250 mcg Ferrous Sulfate (Ferrous Sulfate 324 Mg Tablet.) 324 mg PO TID COUNT INCLUDES THE [facility] Last Admin: 07/30/25 09:09 Dose: 324 mg Fluticasone Propionate (Fluticasone Propionate Nasal 16 Gm Rougon) 1 spray NOSTRIL-B DAILY COUNT INCLUDES THE [facility] Last Admin: 07/30/25 09:11 Dose: 1 spray Furosemide (Furosemide 40 Mg Tablet) 40 mg PO DAILY COUNT INCLUDES THE [facility] On Hold: 07/20/25 09:00 Furosemide (Furosemide 20 Mg Tablet) 20 mg PO DAILY COUNT INCLUDES THE [facility]; Protocol Last Admin: 07/30/25 09:08 Dose: 20 mg Gabapentin (Gabapentin 600 Mg Tablet) 600 mg PO TID COUNT INCLUDES THE [facility] Last Admin: 07/30/25 09:09 Dose: 600 mg Insulin Glargine (Insulin Glargine,Hum.Rec.Anlog 100 Unit/Ml 10 Ml Vial) 50 unit SUBCUT BEDTIME COUNT INCLUDES THE [facility] Last Admin: 07/29/25 20:01 Dose: 50 unit Insulin Glargine (Insulin Glargine,Hum.Rec.Anlog 100 Unit/Ml 10 Ml Vial) 10 unit SUBCUT DAILY COUNT INCLUDES THE [facility] Last Admin: 07/30/25 09:12 Dose: 10 unit Insulin Human Lispro (Insulin Lispro 100 Unit/Ml 3 Ml Vial) 0 unit SUBCUT QIDACHS COUNT INCLUDES THE [facility]; Protocol Last Admin: 07/30/25 12:12 Dose: 4 unit Lorazepam (Lorazepam 0.5 Mg Tablet) 0.5 mg PO BID PRN PRN Reason: Anxiety Last Admin: 07/30/25 00:30 Dose: 0.5 mg Losartan Potassium (Losartan Potassium 25 Mg Tablet) 25 mg PO DAILY MARCIA On Hold: 07/17/25 09:33 Last Admin: 07/17/25 08:19 Dose: 25 mg Magnesium Hydroxide (Milk Of Magnesia 30 Ml Oral.Susp) 30 ml PO DAILY PRN PRN Reason: Constipation Melatonin (Melatonin 3 Mg Tablet) 6 mg PO BEDTIME MARCIA Last Admin: 07/29/25 20:00 Dose: 6 mg Metoprolol Succinate (Metoprolol Succinate Er 50 Mg Tab.Er.24h) 50 mg PO DAILY COUNT INCLUDES THE [facility] Last Admin: 07/30/25 09:09 Dose: 50 mg Montelukast Sodium (Montelukast Sodium 10 Mg Tablet) 10 mg PO BEDTIME COUNT INCLUDES THE [facility] Last Admin: 07/29/25 19:59 Dose: 10 mg Pantoprazole Sodium (Pantoprazole Sodium 20 Mg Tablet.Dr) 40 mg PO DAILY COUNT INCLUDES THE [facility] Last Admin: 07/30/25 09:09 Dose: 40 mg Polyethylene Glycol (Polyethylene Glycol 3350 17 Gm Powd.Pack) 17 gm PO DAILY COUNT INCLUDES THE [facility] Last Admin: 07/30/25 09:16 Dose: Not Given Risperidone (Risperidone 1 Mg Tablet) 1 mg PO BID COUNT INCLUDES THE [facility] Last Admin: 07/30/25 09:10 Dose: 1 mg Tamsulosin HCl (Tamsulosin Hcl 0.4 Mg Capsule) 0.4 mg PO BEDTIME COUNT INCLUDES THE [facility] Last Admin: 07/29/25 20:00 Dose: 0.4 mg Thiamine HCl (Thiamine Hcl 100 Mg Tablet) 100 mg PO DAILY COUNT INCLUDES THE [facility] Last Admin: 07/30/25 09:10 Dose: 100 mg Tiotropium Elmo (Tiotropium Elmo 2.5 Mcg 1 Puff/2.5 Mcg Mist.Inhal) 2 puff INHALE RDAILY COUNT INCLUDES THE [facility] Last Admin: 07/30/25 09:11 Dose: 2 puff Tizanidine HCl (Tizanidine Hcl 4 Mg Tablet) 2 mg PO BEDTIME COUNT INCLUDES THE [facility] Last Admin: 07/29/25 19:59 Dose: 2 mg Tramadol HCl (Tramadol Hcl 50 Mg Tablet) 50 mg PO Q6H PRN PRN Reason: severe left hip pain Last Admin: 07/30/25 00:46 Dose: 50 mg Trazodone HCl (Trazodone Hcl 50 Mg Tablet) 50 mg PO BEDTIME MRX1 PRN PRN Reason: Insomnia Last Admin: 07/30/25 00:30 Dose: 50 mg Allergies Allergies Allergy/AdvReac Type Severity Reaction Status Date / Time Penicillins (PCN) AdvReac Unknown Verified 07/14/25 14:00 Assessment & Plan Assessment & Plan (1) RLL pneumonia: Status: Acute Code(s): J18.9 - Pneumonia, unspecified organism Plan Mr. Eden is a 75 year-old male who was initially brought to [facility] via EMS on [address] by police after [place] was seen [place] the park inflicting laceration on left hand. No stitches required. He continued to self harm while in the ED. He reports he is hearing voices (reports male voice saying I want to see blood repeatedly), which then led to him acting on the voices thinking it may quiet them down. Although he endorses depressed mood in context of not having stable place to live and passive SI, he reports he does not want to but can't help if voices are ongoing. He reports he is not hearing voices now. We discussed risks, benefits and alternative treatment options. He agreed to start risperidone 1mg po BID. Hospital course: 07/19 continue tx. consult to hospitalist- left hip pain. no fall or injury. Updraft nebulizer as needed Patient with a history of asthma, not on any maintenance meds. Will start Spiriva 07/20: Patient found sitting on his bed with his feet on the floor and arms around his walker. He is irritable and tearful. He reports severe pain to his left hip. He rates his pain as 7/10 on the pain scale. Tramadol was increased to 50 mg Q6H as needed this morning. Patient repeatedly refused pain medication tramadol that his nurse offered at bedside. He eventually took the medication after intervention/education about his pain and treatment modalities by this provider. He denies anxiety or depression. He denies SI/HI/AH/VH. Continue current treatment regimen. PT consult made. 07/21: Reports 4/10 lower back and left hip pain. Cheerful and socializing with peers. Prednisone 40 mg daily x5 days ordered for pain. Continue current treatment regimen. Hortensia, Hospitalist notes she would order more imaging for musculoskeletal pain. 07/22/25: Meet with patient in the presence of gusset stitcher in sensory room. Patient reports bearable pain on left buttock area, rated pain 2/20. Report he has some happy tears today after talking to his granddaughter who is 5 years as she prays for him to be better to be home soon with family. Report mood and sleep/appetite are good. Denies anxiety/depression or safety concern. He says he would rather stay in [place] instead of returning to [place]. Report that he can stay with her granddaughter who is 48 y.o in [place]. Explained to patient that he may not get good benefits for health insurance as [place] in [place] in a good period of time. Report he has been here more than 3 months. Patient is aware of potential family meeting next week on Friday at 1300 virtually and discharge to follow after. VSs stable, no SOB, O2Sat this morning 92% but improved later on of the day. Ambulate with wheelchair. Lam sociall appropriately with peers and staff and attended groups. 07/23/25: Patient slept for 5 hours, medication compliant, no side effects. He is reasonable, social and appropriate. Reports singing he people's vehicles saw about the pig/pork meat. Denies safety concerns. He was not happy regarding the roommate who was snoring loudly, and was not quiet at night which interfere with his sleep. Encourage patient to to use ear plugs she sees if they are helpful. Blood pressure is fluctuated. We will continue to monitor. Ambulating with a walker. Pain is under control. 07/24/25: Patient slept through the night, was compliant with medications, but not compliant with diabetic protocol. Patient has not care for his diet, blood sugar continued to be high, received coverage. Nursing reported the patient was dancing yesterday but has a tantrum moment over food for dinner yesterday, he threw the walker away which was taken away from the patient for safety issues. Patient requests the walker, explained to patient reason why he can not get walker. He walked with normal steady gait. Reports the pain on the hip is improving. Denies safety concerns. Continued to confirm that he wants to stay in [place]. Reported that his granddaughter will come in in person to have a meeting this week. Denies depression or anxiety, sleep is improving. Changing from 5 to 15 minutes safety checks 07/25/25:Patient slept well, compliant with medication. Denies side effects. POC remains high, asymptomatic, received coverage per Protocol with extra 4 unit of Insulin prior dinner. Denies pain, walking with steady gait. Denies anxiety/depression. Denies SI/SIB/HI/AVH. Patient reports that he has been in this country for 10 years. Confirm he wants to stay in [place]. Do not want to return to [place]. Per , meeting with family went well- virtual. Patient will return to [place]. will work on aftercare plan and FLU appointment. 07/26/25: In person Medical Social Consultant utilized. Reports improve in sleep, , medication compliant, denies safety concerns, denies depression and anxiety. Denies pain. Patient reported that he did not attend to family meeting yesterday. Educate patient on healthy food/fluid choices as his blood sugar was elevated much more higher than normal. He spent sometime napping in his room. No behavior issues. Reports sore throat and headache yesterday. Denies headache this morning but reported that he was coughing at night and has sore throat now. 07/27: Nursing also reports that the patient's sugar significantly increased while on prednisone, but has been trending down. Blood glucose in the past 2 days between 413 and 291. Continue current treatment regimen. 07/28: He reports ?mild? sore throat which started this morning. No associated symptoms. Continue current treatment regimen. 07/29/25: In-person modeling agent presence during want to on assessment. Patient reports slept okay last night, appetite good. Denies side effects from medications. Denies anxiety or depression. Sound having sore throat. Reported that fell last night and he has his head badly to the wall. Per nursing, patient lowered himself to the floor. He was irritable agitated at times yesterday. Refused MiraLax this morning. Reports head take 2/10 where he hit the wall yesterday. Patient having questioned regarding when he is discharged. Informed the patient that elementary school social worker is working on sending the referral out. Pending results. 07/30: Chest XR pending. Continue current medications. Plan: Bilateral hip pain-resolved Patient does not have any radiculopathy, numbness or tingling in his legs. He is ambulating at baseline without any antalgic gait, not using a walker. Denying any hip pain. CKD 3B Stable. Avoid nephrotoxins. Right lower lobe pneumonia Noted on chest x-ray Continue Levaquin 750 daily for 5 days due to PCN allergy Updraft nebulizer as needed Patient with a history of asthma, not on any maintenance meds. Continue Spiriva Improving Laceration to dorsum of left hand and fingers/scratch abrasions to calf. Continue local wound care Wound care following. No evidence of infection Coronary artery disease/history of stroke/CHF/hypertension Continue aspirin, Plavix, atorvastatin and Jardiance. Continue metoprolol 50 mg daily extended release Continue losartan at 25 mg daily, blood pressure is stable Continue Lasix twice daily at reduced dose in pm. Daily weights. Weight stable. 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 Add glargine 10 units in the morning. Recent A1c 9.1 Can consider starting Trulicity outpatient Continue gabapentin 600 t.i.d. Blood sugars elevated due to prednisone- last dose today Chronic kidney disease Stage 3 B Baseline 1.2 Avoid nephrotoxins Continue to monitor-nephrology consult pending BPH Continue tamsulosin GERD Continue Protonix Vitamin-D deficiency Continue vitamin-D daily Reason for continued inpatient stay Substantial Risk for: inability to function, rapid decompensation and med/psych decompensation Time Spent With Patient Time: Total time managing care of this patient today ____ minutes.
[2025-07-30 16:28] LABS: Glucose, Whole Blood 210 mg/dL (60-115)
[2025-07-30 19:40] VITALS: BP 141/59; PULSE 70; RESP 17; TEMP 36.4; O2SAT 95
[2025-07-30 20:07] LABS: Glucose, Whole Blood 365 mg/dL (60-115)
[2025-07-30] MEDS: Insulin Glargine,Hum.rec.anlog 100 UNIT/ML 10 ML VIAL 50 UNIT SUBCUT (20:16)
[2025-07-31] MEDS: Albuterol Sulfate 90 MCG 8 GM INHALER 2 PUFF INHALE (02:16)
[2025-07-31 06:00] VITALS: BMI 40.0
[2025-07-31 06:25] LABS: Glucose, Whole Blood 351 mg/dL (60-115)
[2025-07-31 08:42] VITALS: BP 137/65; PULSE 90; RESP 14; TEMP 2.6; TEMP 36.7; O2SAT 94
[2025-07-31] MEDS: Tiotropium Bromide 2.5 mcg 1 PUFF/2.5 MCG MIST.INHAL 2 PUFF INHALE (08:46)
[2025-07-31] MEDS: Insulin Glargine,Hum.rec.anlog 100 UNIT/ML 10 ML VIAL 10 UNIT SUBCUT (08:48)
[2025-07-31] MEDS: Metoprolol Succinate ER 50 MG TAB.ER.24H PO (08:51)
[2025-07-31] MEDS: Ferrous Sulfate 324 MG TABLET.DR PO ×3 (08:51→20:04)
--- NOTE | 2025-07-31 09:39 | P.PNPSI_ITS ---
Subjective Subjective Date of Service: 07/31/25 Reason For Visit: Depression Interim History: Patient seen with in person jewelry racker. Today reports he is feeling well. I have no pain. I feel good. His main complaint is some hoarseness. No chest pain. No shortness of breath. Not in distress. Patient can be somatically preoccupied. No fevers. VSS. CXR no pathology. Mood is better. Wants to be discharged soon. Denies SI. Review of Systems Review of Systems Const : no body aches, no chills, no excessive sweating and no fatigue Eyes: no blurry vision and no change in vision ENT: no bleeding gums and no change in voice, no dizziness Card: no chest pain, ?no shortness of breath, no orthopnea, no PND Resp: report cough last night with sore throat now, ?no excessive phlegm production, no SOB GI: no abdominal pain and no nausea, no vomiting : no hematuria, no urinary frequency and no difficulty voiding Musc: no abnormal gait, no bone pain Neuro: no ?abnormal movements, no weakness,and +behavioral changes Psych: no behavioral changes and no change in appetite Endo: no change in body appearance, no cold intolerance, Yes all other systems are reviewed and are negative Mental Status Exam Mental Status Exam Narrative: Appearance: Casually dressed, adequate hygiene Behavior: Calm cooperative throughout the interview. Pleasant. Appropriate eye contact, no signs of psychomotor agitation or psychomotor retardation present Speech: Normal volume and prosody Thought process: Linear Thought content: WNL. organized Mood: Good Affect: mood-congruent SI:denies HI:denies VH/AH:none Delusions: None Insight/judgment: Improved Memory/cog: Alert and oriented. grossly intact to conversational testing. Irish moca was 17/30 on 07/27/2025 Diagnostics Vital Signs (24Hr): Vital Signs - 24 hr 07/30/25 12:24 07/30/25 19:40 07/31/25 08:42 Temperature 97.1 F 97.6 F 36.7 F L Pulse Rate 78 70 90 Respiratory Rate 14 17 14 Blood Pressure 133/63 141/59 H 137/65 Pulse Oximetry 92 95 94 Oxygen Delivery Method Room Air Room Air BMI result Body Mass Index 40.0 Labs 07/30/25 08:03 Labs: Laboratory Results - last 48 hr 10/07/29/25 07/29/25 11:23 16:03 18:22 Sodium 135 Potassium 5.5 H Chloride 99 Carbon Dioxide 27 Anion Gap 15 BUN 68 H Creatinine 1.59 H Estim Creat Clear Calc 44.5 Estimated GFR 43 POC Glucose 285 H 277 H Random Glucose 359 H* Calcium 9.6 07/29/25 07/30/25 07/30/25 19:47 06:24 08:03 Sodium 137 Potassium 5.1 Chloride 102 Carbon Dioxide 28 Anion Gap 12 BUN 62 H Creatinine 1.67 H Estim Creat Clear Calc 42.3 Estimated GFR 40 POC Glucose 344 H 214 H Random Glucose 212 H Calcium 9.3 07/30/25 07/30/25 07/30/25 11:36 16:22 20:02 Sodium Potassium Chloride Carbon Dioxide Anion Gap BUN Creatinine Estim Creat Clear Calc Estimated GFR POC Glucose 220 H 210 H 365 H* Random Glucose Calcium 07/31/25 06:04 Sodium Potassium Chloride Carbon Dioxide Anion Gap BUN Creatinine Estim Creat Clear Calc Estimated GFR POC Glucose 351 H* Random Glucose Calcium Imaging Radiology Impressions: ITS Impressions Chest X-Ray 07/15/25 15:24 IMPRESSION: Clear lungs. Electronically signed by: Brice Bunch MD 07/15/2025 03:40 PM EDT RP Hip/Pelvis X-Ray 07/19/25 11:20 IMPRESSION: Patchy increased sclerosis which may be due to renal osteodystrophy. Other etiologies including metastatic disease are not excluded. Clinical correlation is recommended. Electronically signed by: Brice Bunch MD 07/19/2025 11:49 AM EDT RP Lumbar Spine X-Ray 07/19/25 11:20 IMPRESSION: Mild degenerative disc disease. Electronically signed by: Brice Bunch MD 07/19/2025 11:50 AM EDT RP Chest X-Ray 07/19/25 11:33 IMPRESSION: Right lower lobe pneumonia. Follow-up is recommended to document resolution. Electronically signed by: Brice Bunch MD 07/19/2025 11:44 AM EDT RP Abdomen/Pelvis CT 07/21/25 15:26 IMPRESSION: Lobulated fat-containing umbilical hernia. Atelectasis versus airspace disease, lung bases. Abundant stool without intestinal obstruction pattern. Simple cyst, left kidney. Degenerative changes both hips with questionable trochanter bursitis. Multilevel thoracolumbar spondylosis resulting in central spinal canal stenosis. Please for to the CT lumbar spine. Fleischner guidelines were followed. 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 Mild narrowing of neural foramina bilaterally at along the lumbar spinal canal. The findings are slightly worse on the right at the T12-L1 disc level there is a right facet joint hypertrophy extending into the neural foramina and a small bony spur extending into right lateral recess at the L2-3 disc level. No abnormal enhancement seen within the lower dorsal or lumbar spinal canal or the region of conus medullaris. If patient has persistent radiculopathy and numbness and tingling in the legs further evaluation with neurology may be helpful. Electronically signed by: Gabo Bush MD 07/22/2025 07:26 AM EDT RP Medications Medications Current Medications Acetaminophen (Acetaminophen 325 Mg Tablet) 650 mg PO Q6H PRN PRN Reason: Headache/Pain, Scale 1-10 Last Admin: 07/29/25 01:07 Dose: 650 mg Al Hydroxide/Mg Hydroxide (Magnesium Hydrox/Alum Hydrox 30 Ml Oral.Susp) 30 ml PO Q6H PRN PRN Reason: Heartburn/Nausea Last Admin: 07/25/25 09:57 Dose: 30 ml Albuterol Sulfate (Albuterol Sulfate 90 Mcg 8 Gm Inhaler) 2 puff INHALE RQ4H PRN PRN Reason: SOB/Wheezing Last Admin: 07/31/25 02:16 Dose: 2 puff Aspirin (Aspirin 81 Mg Tab.Chew) 81 mg PO DAILY MARCIA Last Admin: 07/31/25 08:50 Dose: 81 mg Atorvastatin Calcium (Atorvastatin Calcium 40 Mg Tablet) 40 mg PO BEDTIME MARCIA Last Admin: 07/30/25 20:15 Dose: 40 mg Benzocaine (Throat Lozenge, Medicated Lozenge) 1 lozenge MUCOUS MEM Q2H PRN PRN Reason: Sore Throat Last Admin: 07/30/25 20:15 Dose: 1 lozenge Clopidogrel Bisulfate (Clopidogrel Bisulfate 75 Mg Tablet) 75 mg PO DAILY [facility] Last Admin: 07/31/25 08:50 Dose: 75 mg Cyanocobalamin (Cyanocobalamin (Vitamin B-12) 1,000 Mcg Tablet) 1,000 mcg PO DAILY [facility] Last Admin: 07/31/25 08:51 Dose: 1,000 mcg Empagliflozin (Empagliflozin 10 Mg Tablet) 10 mg PO DAILY [facility] Last Admin: 07/31/25 08:51 Dose: 10 mg Ergocalciferol (Ergocalciferol (Vitamin D2) 1,250 Mcg Capsule) 1,250 mcg PO Fr@0900 [facility] Stop: 09/09/25 09:01 Last Admin: 07/29/25 07:49 Dose: 1,250 mcg Ferrous Sulfate (Ferrous Sulfate 324 Mg Tablet.Dr) 324 mg PO TID [facility] Last Admin: 07/31/25 08:51 Dose: 324 mg Fluticasone Propionate (Fluticasone Propionate Nasal 16 Gm [place]) 1 spray NOSTRIL-B DAILY [facility] Last Admin: 07/31/25 08:46 Dose: 1 spray Furosemide (Furosemide 40 Mg Tablet) 40 mg PO DAILY MARCIA On Hold: 07/20/25 09:00 Furosemide (Furosemide 20 Mg Tablet) 20 mg PO DAILY [facility]; Protocol Last Admin: 07/31/25 08:51 Dose: 20 mg Gabapentin (Gabapentin 600 Mg Tablet) 600 mg PO TID MARCIA Last Admin: 07/31/25 08:51 Dose: 600 mg Insulin Glargine (Insulin Glargine,Hum.Rec.Anlog 100 Unit/Ml 10 Ml Vial) 50 unit SUBCUT BEDTIME MARCIA Last Admin: 07/30/25 20:16 Dose: 50 unit Insulin Glargine (Insulin Glargine,Hum.Rec.Anlog 100 Unit/Ml 10 Ml Vial) 10 unit SUBCUT DAILY [facility] Last Admin: 07/31/25 08:48 Dose: 10 unit Insulin Human Lispro (Insulin Lispro 100 Unit/Ml 3 Ml Vial) 0 unit SUBCUT QIDACHS [facility]; Protocol Last Admin: 07/31/25 08:47 Dose: 10 unit Lorazepam (Lorazepam 0.5 Mg Tablet) 0.5 mg PO BID PRN PRN Reason: Anxiety Last Admin: 07/31/25 02:16 Dose: 0.5 mg Losartan Potassium (Losartan Potassium 25 Mg Tablet) 25 mg PO DAILY [facility] On Hold: 07/17/25 09:33 Last Admin: 07/17/25 08:19 Dose: 25 mg Magnesium Hydroxide (Milk Of Magnesia 30 Ml Oral.Susp) 30 ml PO DAILY PRN PRN Reason: Constipation Melatonin (Melatonin 3 Mg Tablet) 6 mg PO BEDTIME [facility] Last Admin: 07/30/25 20:14 Dose: 6 mg Metoprolol Succinate (Metoprolol Succinate Er 50 Mg Tab.Er.24h) 50 mg PO DAILY [facility] Last Admin: 07/31/25 08:51 Dose: 50 mg Montelukast Sodium (Montelukast Sodium 10 Mg Tablet) 10 mg PO BEDTIME [facility] Last Admin: 07/30/25 20:13 Dose: 10 mg Pantoprazole Sodium (Pantoprazole Sodium 20 Mg Tablet.Dr) 40 mg PO DAILY [facility] Last Admin: 07/31/25 08:52 Dose: 40 mg Polyethylene Glycol (Polyethylene Glycol 3350 17 Gm Powd.Pack) 17 gm PO DAILY [facility] Last Admin: 07/31/25 08:54 Dose: Not Given Risperidone (Risperidone 1 Mg Tablet) 1 mg PO BID [facility] Last Admin: 07/31/25 08:52 Dose: 1 mg Tamsulosin HCl (Tamsulosin Hcl 0.4 Mg Capsule) 0.4 mg PO BEDTIME [facility] Last Admin: 07/30/25 20:14 Dose: 0.4 mg Thiamine HCl (Thiamine Hcl 100 Mg Tablet) 100 mg PO DAILY [facility] Last Admin: 07/31/25 08:52 Dose: 100 mg Tiotropium [place] (Tiotropium [place] 2.5 Mcg 1 Puff/2.5 Mcg Mist.Inhal) 2 puff INHALE RDAILY [facility] Last Admin: 07/31/25 08:46 Dose: 2 puff Tizanidine HCl (Tizanidine Hcl 4 Mg Tablet) 2 mg PO BEDTIME [facility] Last Admin: 07/30/25 20:13 Dose: 2 mg Tramadol HCl (Tramadol Hcl 50 Mg Tablet) 50 mg PO Q6H PRN PRN Reason: severe left hip pain Last Admin: 07/30/25 00:46 Dose: 50 mg Trazodone HCl (Trazodone Hcl 50 Mg Tablet) 50 mg PO BEDTIME MRX1 PRN PRN Reason: Insomnia Last Admin: 07/30/25 20:13 Dose: 50 mg Allergies Allergies Allergy/AdvReac Type Severity Reaction Status Date / Time Penicillins (PCN) AdvReac Unknown Verified 07/14/25 14:00 Assessment & Plan Assessment & Plan (1) RLL pneumonia: Status: Acute Code(s): J18.9 - Pneumonia, unspecified organism Plan Mr. Eden is a 75 year-old male who was initially brought to [facility] via EMS on [address] by police after [place] was seen in the park inflicting laceration on left hand. No stitches required. He continued to self harm while in the ED. He reports he is hearing voices (reports male voice saying I want to see blood repeatedly), which then led to him acting on the voices thinking it may quiet them down. Although he endorses depressed mood in context of not having stable place to live and passive SI, he reports he does not want to but can't help if voices are ongoing. He reports he is not hearing voices now. We discussed risks, benefits and alternative treatment options. He agreed to start risperidone 1mg po BID. Hospital course: 07/19 continue tx. consult to hospitalist- left hip pain. no fall or injury. Updraft nebulizer as needed Patient with a history of asthma, not on any maintenance meds. Will start Spiriva 07/20: Patient found sitting on his bed with his feet on the floor and arms around his walker. He is irritable and tearful. He reports severe pain to his left hip. He rates his pain as 7/10 on the pain scale. Tramadol was increased to 50 mg Q6H as needed this morning. Patient repeatedly refused pain medication tramadol that his nurse offered at bedside. He eventually took the medication after intervention/education about his pain and treatment modalities by this provider. He denies anxiety or depression. He denies SI/HI/AH/VH. Continue current treatment regimen. PT consult made. 07/21: Reports 4/10 lower back and left hip pain. Cheerful and socializing with peers. Prednisone 40 mg daily x5 days ordered for pain. Continue current treatment regimen. [place] Hospitalist notes she would order more imaging for musculoskeletal pain. 07/22/25: Meet with patient in the presence of licensed massage practitioner in sensory room. Patient reports bearable pain on left buttock area, rated pain 2/20. Report he has some happy tears today after talking to his granddaughter who is 5 years as she prays for him to be better to be home soon with family. Report mood and sleep/appetite are good. Denies anxiety/depression or safety concern. He says he would rather stay in [place] instead of returning to [place]. Report that he can stay with her granddaughter who is 48 y.o in [place]. Explained to patient that he may not get good benefits for health insurance as he has not been here in [place] in a good period of time. Report he has been here more than 3 months. Patient is aware of potential family meeting next week on Friday at 1300 virtually and discharge to follow after. VSs stable, no SOB, O2Sat this morning 92% but improved later on of the day. Ambulate with wheelchair. Visbile, sociall appropriately with peers and staff and attended groups. 07/23/25: Patient slept for 5 hours, medication compliant, no side effects. He is reasonable, social and appropriate. Reports singing he people's vehicles saw about the pig/pork meat. Denies safety concerns. He was not happy regarding the roommate who was snoring loudly, and was not quiet at night which interfere with his sleep. Encourage patient to to use ear plugs she sees if they are helpful. Blood pressure is fluctuated. We will continue to monitor. Ambulating with a walker. Pain is under control. 07/24/25: Patient slept through the night, was compliant with medications, but not compliant with diabetic protocol. Patient has not care for his diet, blood sugar continued to be high, received coverage. Nursing reported the patient was dancing yesterday but has a tantrum moment over food for dinner yesterday, he threw the walker away which was taken away from the patient for safety issues. Patient requests the walker, explained to patient reason why he can not get walker. He walked with normal steady gait. Reports the pain on the hip is improving. Denies safety concerns. Continued to confirm that he wants to stay in [place]. Reported that his granddaughter will come in in person to have a meeting this week. Denies depression or anxiety, sleep is improving. Changing from 5 to 15 minutes safety checks 07/25/25:Patient slept well, compliant with medication. Denies side effects. POC remains high, asymptomatic, received coverage per Protocol with extra 4 unit of Insulin prior dinner. Denies pain, walking with steady gait. Denies anxiety/depression. Denies SI/SIB/HI/AVH. Patient reports that he has been in this country for 10 years. Confirm he wants to stay in [place]. Do not want to return to [place]. Per , meeting with family went well- virtual. Patient will return to [place]. will work on aftercare plan and FLU appointment. 07/26/25: In person Mentally Retarded Teacher utilized. Reports improve in sleep, , medication compliant, denies safety concerns, denies depression and anxiety. Denies pain. Patient reported that he did not attend to family meeting yesterday. Educate patient on healthy food/fluid choices as his blood sugar was elevated much more higher than normal. He spent sometime napping in his room. No behavior issues. Reports sore throat and headache yesterday. Denies headache this morning but reported that he was coughing at night and has sore throat now. 07/27: Nursing also reports that the patient's sugar significantly increased while on prednisone, but has been trending down. Blood glucose in the past 2 days between 413 and 291. Continue current treatment regimen. 07/28: He reports ?mild? sore throat which started this morning. No associated symptoms. Continue current treatment regimen. 07/29/25: In-person jewelry racker presence during want to on assessment. Patient reports slept okay last night, appetite good. Denies side effects from medications. Denies anxiety or depression. Sound having sore throat. Reported that fell last night and he has his head badly to the wall. Per nursing, patient lowered himself to the floor. He was irritable agitated at times yesterday. Refused MiraLax this morning. Reports head take 2/10 where he hit the wall yesterday. Patient having questioned regarding when he is discharged. Informed the patient that older adult social work specialist is working on sending the referral out. Pending results. 07/30: Chest XR pending. Continue current medications. 07/31: continue current management and treatment plan. Plan: Bilateral hip pain-resolved Patient does not have any radiculopathy, numbness or tingling in his legs. He is ambulating at baseline without any antalgic gait, not using a walker. Denying any hip pain. CKD 3B Stable. Avoid nephrotoxins. Right lower lobe pneumonia Noted on chest x-ray Continue Levaquin 750 daily for 5 days due to PCN allergy Updraft nebulizer as needed Patient with a history of asthma, not on any maintenance meds. Continue Spiriva Improving Laceration to dorsum of left hand and fingers/scratch abrasions to calf. Continue local wound care Wound care following. No evidence of infection Coronary artery disease/history of stroke/CHF/hypertension Continue aspirin, Plavix, atorvastatin and Jardiance. Continue metoprolol 50 mg daily extended release Continue losartan at 25 mg daily, blood pressure is stable Continue Lasix twice daily at reduced dose in pm. Daily weights. Weight stable. 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 Add glargine 10 units in the morning. Recent A1c 9.1 Can consider starting Trulicity outpatient Continue gabapentin 600 t.i.d. Blood sugars elevated due to prednisone- last dose today Chronic kidney disease Stage 3 B Baseline 1.2 Avoid nephrotoxins Continue to monitor-nephrology consult pending BPH Continue tamsulosin GERD Continue Protonix Vitamin-D deficiency Continue vitamin-D daily Reason for continued inpatient stay Substantial Risk for: inability to function and rapid decompensation Time Spent With Patient Time: Total time managing care of this patient today ____ minutes.
[2025-07-31 11:27] LABS: Glucose, Whole Blood 269 mg/dL (60-115)
[2025-07-31 16:21] LABS: Glucose, Whole Blood 242 mg/dL (60-115)
[2025-07-31 19:50] LABS: Glucose, Whole Blood 287 mg/dL (60-115)
[2025-07-31 20:00] VITALS: BP 134/88; PULSE 80; RESP 16; TEMP 36.4; O2SAT 94
[2025-07-31] MEDS: Insulin Glargine,Hum.rec.anlog 100 UNIT/ML 10 ML VIAL 50 UNIT SUBCUT (20:04)
[2025-08-01 05:43] LABS: Glucose, Whole Blood 226 mg/dL (60-115)
[2025-08-01 05:44] VITALS: BMI 39.3
[2025-08-01 08:16] VITALS: BP 142/64; PULSE 88; RESP 18; TEMP 36.6; O2SAT 96
[2025-08-01] MEDS: Insulin Glargine,Hum.rec.anlog 100 UNIT/ML 10 ML VIAL 10 UNIT SUBCUT (08:17)
[2025-08-01] MEDS: Tiotropium Bromide 2.5 mcg 1 PUFF/2.5 MCG MIST.INHAL 2 PUFF INHALE (08:18)
[2025-08-01] MEDS: Ferrous Sulfate 324 MG TABLET.DR PO ×3 (08:19→19:54)
[2025-08-01] MEDS: Metoprolol Succinate ER 50 MG TAB.ER.24H PO (08:20)
[2025-08-01 11:18] LABS: Glucose, Whole Blood 239 mg/dL (60-115)
--- NOTE | 2025-08-01 11:39 | HO.PSYCHPN ---
Subjective Subjective Date of Service: 08/01/25 Reason For Visit: Depression Subjective Notes: Conditional Voluntary Healthcare Proxy: No Guardianship: No Medical Problems Affecting Mental Status: No Interim History: Medical record and nursing notes reviewed; case discussed during rounds with team/nursing staff, and met with patient for supportive therapy/psychoeducation, as well as medication management. Interpretive, dialysis social worker, and this provider met with patient in dining area. Patient reports slept well, feeling rested, no appetite issues. Denies depression or anxiety. No chest pain. No pain anywhere else except for sore throat which he said his feels better today. Review with patient regarding chest x-ray and EKG which was done over the weekends. Educate patient on healthy food and fluid choices. Patient observed and overheard snoring loudly at dinning table before lunch time. dobie worker continue to send out referral to assisted facility, especially in [facility]. Patient has been declined from other places so far. Medication Compliance: Yes (Except Miralax) Side effects from medications: No Attending Groups: Yes Review of Systems Acute medical concerns: No Medical Review of Systems: unchanged Review of Systems Review of Systems Const : no body aches, no chills, no excessive sweating and no fatigue Eyes: no blurry vision and no change in vision ENT: no bleeding gums and no change in voice, no dizziness Card: no chest pain, ?no shortness of breath, no orthopnea, no PND Resp: report cough last night with sore throat now, ?no excessive phlegm production, no SOB GI: no abdominal pain and no nausea, no vomiting : no hematuria, no urinary frequency and no difficulty voiding Musc: no abnormal gait, no bone pain Neuro: no ?abnormal movements, no weakness,and +behavioral changes Psych: no behavioral changes and no change in appetite Endo: no change in body appearance, no cold intolerance, Yes all other systems are reviewed and are negative Mental Status Exam Mental Status Exam Narrative: Appearance: Casually dressed, adequate hygiene Behavior: Calm cooperative throughout the interview. Pleasant. Appropriate eye contact, no signs of psychomotor agitation or psychomotor retardation present Speech: Normal volume and prosody Thought process: Linear Thought content: WNL. organized Mood: Good Affect: mood-congruent SI:denies HI:denies VH/AH:none Delusions: None Insight/judgment: Improved Memory/cog: Alert and oriented. grossly intact to conversational testing. Stateless moca was 17/30 on 07/27/2025 Diagnostics Vital Signs (24Hr): Vital Signs - 24 hr 07/31/25 20:00 08/01/25 08:16 Temperature 97.6 F 97.9 F Pulse Rate 80 88 Respiratory Rate 16 18 Blood Pressure 134/88 142/64 H Pulse Oximetry 94 96 Oxygen Delivery Method Room Air Room Air BMI result Body Mass Index 39.3 Labs 07/30/25 08:03 Labs: Laboratory Results - last 48 hr 07/30/25 07/30/25 07/30/25 11:36 16:22 20:02 POC Glucose 220 H 210 H 365 H* 07/31/25 07/31/25 07/31/25 06:04 11:24 16:14 POC Glucose 351 H* 269 H 242 H 07/31/25 08/01/25 08/01/25 19:43 05:39 11:03 POC Glucose 287 H 226 H 239 H Imaging Radiology Impressions: ITS Impressions Chest X-Ray 07/15/25 15:24 IMPRESSION: Clear lungs. Electronically signed by: Brice Bunch MD 07/15/2025 03:40 PM EDT RP Hip/Pelvis X-Ray 07/19/25 11:20 IMPRESSION: Patchy increased sclerosis which may be due to renal osteodystrophy. Other etiologies including metastatic disease are not excluded. Clinical correlation is recommended. Electronically signed by: Brice Bunch MD 07/19/2025 11:49 AM EDT RP Lumbar Spine X-Ray 07/19/25 11:20 IMPRESSION: Mild degenerative disc disease. Electronically signed by: Brice Bunch MD 07/19/2025 11:50 AM EDT RP Chest X-Ray 07/19/25 11:33 IMPRESSION: Right lower lobe pneumonia. Follow-up is recommended to document resolution. Electronically signed by: Brice Bunch MD 07/19/2025 11:44 AM EDT RP Abdomen/Pelvis CT 07/21/25 15:26 IMPRESSION: Lobulated fat-containing umbilical hernia. Atelectasis versus airspace disease, lung bases. Abundant stool without intestinal obstruction pattern. Simple cyst, left kidney. Degenerative changes both hips with questionable trochanter bursitis. Multilevel thoracolumbar spondylosis resulting in central spinal canal stenosis. Please for to the CT lumbar spine. Fleischner guidelines were followed. 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 Mild narrowing of neural foramina bilaterally at along the lumbar spinal canal. The findings are slightly worse on the right at the T12-L1 disc level there is a right facet joint hypertrophy extending into the neural foramina and a small bony spur extending into right lateral recess at the L2-3 disc level. No abnormal enhancement seen within the lower dorsal or lumbar spinal canal or the region of conus medullaris. If patient has persistent radiculopathy and numbness and tingling in the legs further evaluation with neurology may be helpful. Electronically signed by: Gabo Bush MD 07/22/2025 07:26 AM EDT RP Medications Medications Current Medications Acetaminophen (Acetaminophen 325 Mg Tablet) 650 mg PO Q6H PRN PRN Reason: Headache/Pain, Scale 1-10 Last Admin: 07/29/25 01:07 Dose: 650 mg Al Hydroxide/Mg Hydroxide (Magnesium Hydrox/Alum Hydrox 30 Ml Oral.Susp) 30 ml PO Q6H PRN PRN Reason: Heartburn/Nausea Last Admin: 07/25/25 09:57 Dose: 30 ml Albuterol Sulfate (Albuterol Sulfate 90 Mcg 8 Gm Inhaler) 2 puff INHALE RQ4H PRN PRN Reason: SOB/Wheezing Last Admin: 07/31/25 02:16 Dose: 2 puff Aspirin (Aspirin 81 Mg Tab.Chew) 81 mg PO DAILY MARCIA Last Admin: 08/01/25 08:20 Dose: 81 mg Atorvastatin Calcium (Atorvastatin Calcium 40 Mg Tablet) 40 mg PO BEDTIME MARCIA Last Admin: 07/31/25 20:04 Dose: 40 mg Benzocaine (Throat Lozenge, Medicated Lozenge) 1 lozenge MUCOUS MEM Q2H PRN PRN Reason: Sore Throat Last Admin: 07/30/25 20:15 Dose: 1 lozenge Clopidogrel Bisulfate (Clopidogrel Bisulfate 75 Mg Tablet) 75 mg PO DAILY REPLACED BY [facility] Last Admin: 08/01/25 08:20 Dose: 75 mg Cyanocobalamin (Cyanocobalamin (Vitamin B-12) 1,000 Mcg Tablet) 1,000 mcg PO DAILY REPLACED BY [facility] Last Admin: 08/01/25 08:19 Dose: 1,000 mcg Empagliflozin (Empagliflozin 10 Mg Tablet) 10 mg PO DAILY REPLACED BY [facility] Last Admin: 08/01/25 08:21 Dose: 10 mg Ergocalciferol (Ergocalciferol (Vitamin D2) 1,250 Mcg Capsule) 1,250 mcg PO Fr@0900 REPLACED BY [facility] Stop: 09/09/25 09:01 Last Admin: 07/29/25 07:49 Dose: 1,250 mcg Ferrous Sulfate (Ferrous Sulfate 324 Mg Tablet.Dr) 324 mg PO TID REPLACED BY [facility] Last Admin: 08/01/25 08:19 Dose: 324 mg Fluticasone Propionate (Fluticasone Propionate Nasal 16 Gm Ald[place]) 1 spray NOSTRIL-B DAILY REPLACED BY [facility] Last Admin: 08/01/25 08:18 Dose: 1 spray Furosemide (Furosemide 40 Mg Tablet) 40 mg PO DAILY REPLACED BY [facility] On Hold: 07/20/25 09:00 Furosemide (Furosemide 20 Mg Tablet) 20 mg PO DAILY REPLACED BY [facility]; Protocol Last Admin: 08/01/25 08:20 Dose: 20 mg Gabapentin (Gabapentin 600 Mg Tablet) 600 mg PO TID REPLACED BY [facility] Last Admin: 08/01/25 08:19 Dose: 600 mg Insulin Glargine (Insulin Glargine,Hum.Rec.Anlog 100 Unit/Ml 10 Ml Vial) 50 unit SUBCUT BEDTIME REPLACED BY [facility] Last Admin: 07/31/25 20:04 Dose: 50 unit Insulin Glargine (Insulin Glargine,Hum.Rec.Anlog 100 Unit/Ml 10 Ml Vial) 10 unit SUBCUT DAILY REPLACED BY [facility] Last Admin: 08/01/25 08:17 Dose: 10 unit Insulin Human Lispro (Insulin Lispro 100 Unit/Ml 3 Ml Vial) 0 unit SUBCUT QIDACHS REPLACED BY [facility]; Protocol Last Admin: 08/01/25 08:18 Dose: 4 unit Lorazepam (Lorazepam 0.5 Mg Tablet) 0.5 mg PO BID PRN PRN Reason: Anxiety Last Admin: 07/31/25 02:16 Dose: 0.5 mg Losartan Potassium (Losartan Potassium 25 Mg Tablet) 25 mg PO DAILY REPLACED BY [facility] On Hold: 07/17/25 09:33 Last Admin: 07/17/25 08:19 Dose: 25 mg Magnesium Hydroxide (Milk Of Magnesia 30 Ml Oral.Susp) 30 ml PO DAILY PRN PRN Reason: Constipation Melatonin (Melatonin 3 Mg Tablet) 6 mg PO BEDTIME REPLACED BY [facility] Last Admin: 07/31/25 20:03 Dose: 6 mg Metoprolol Succinate (Metoprolol Succinate Er 50 Mg Tab.Er.24h) 50 mg PO DAILY REPLACED BY [facility] Last Admin: 08/01/25 08:20 Dose: 50 mg Montelukast Sodium (Montelukast Sodium 10 Mg Tablet) 10 mg PO BEDTIME REPLACED BY [facility] Last Admin: 07/31/25 20:08 Dose: 10 mg Pantoprazole Sodium (Pantoprazole Sodium 20 Mg Tablet.Dr) 40 mg PO DAILY REPLACED BY [facility] Last Admin: 08/01/25 08:19 Dose: 40 mg Polyethylene Glycol (Polyethylene Glycol 3350 17 Gm Powd.Pack) 17 gm PO DAILY REPLACED BY [facility] Last Admin: 08/01/25 08:22 Dose: Not Given Risperidone (Risperidone 1 Mg Tablet) 1 mg PO BID REPLACED BY [facility] Last Admin: 08/01/25 08:20 Dose: 1 mg Tamsulosin HCl (Tamsulosin Hcl 0.4 Mg Capsule) 0.4 mg PO BEDTIME REPLACED BY [facility] Last Admin: 07/31/25 20:05 Dose: 0.4 mg Thiamine HCl (Thiamine Hcl 100 Mg Tablet) 100 mg PO DAILY REPLACED BY [facility] Last Admin: 08/01/25 08:19 Dose: 100 mg Tiotropium [place] (Tiotropium [place] 2.5 Mcg 1 Puff/2.5 Mcg Mist.Inhal) 2 puff INHALE RDAILY REPLACED BY [facility] Last Admin: 08/01/25 08:18 Dose: 2 puff Tizanidine HCl (Tizanidine Hcl 4 Mg Tablet) 2 mg PO BEDTIME REPLACED BY [facility] Last Admin: 07/31/25 20:05 Dose: 2 mg Tramadol HCl (Tramadol Hcl 50 Mg Tablet) 50 mg PO Q6H PRN PRN Reason: severe left hip pain Last Admin: 07/30/25 00:46 Dose: 50 mg Trazodone HCl (Trazodone Hcl 50 Mg Tablet) 50 mg PO BEDTIME MRX1 PRN PRN Reason: Insomnia Last Admin: 07/30/25 20:13 Dose: 50 mg Allergies Allergies Allergy/AdvReac Type Severity Reaction Status Date / Time Penicillins (PCN) AdvReac Unknown Verified 07/14/25 14:00 Assessment & Plan Assessment & Plan (1) RLL pneumonia: Status: Acute Code(s): J18.9 - Pneumonia, unspecified organism Plan Mr. Eden is a 75 year-old male who was initially brought to [facility] via EMS on [address] by police after he was seen in the park inflicting laceration on left hand. No stitches required. He continued to self harm while in the ED. He reports he is hearing voices (reports male voice saying I want to see blood repeatedly), which then led to him acting on the voices thinking it may quiet them down. Although he endorses depressed mood in context of not having stable place to live and passive SI, he reports he does not want to but can't help if voices are ongoing. He reports he is not hearing voices now. We discussed risks, benefits and alternative treatment options. He agreed to start risperidone 1mg po BID. Hospital course: 07/19 continue tx. consult to hospitalist- left hip pain. no fall or injury. Updraft nebulizer as needed Patient with a history of asthma, not on any maintenance meds. Will start Spiriva 07/20: Patient found sitting on his bed with his feet on the floor and arms around his walker. He is irritable and tearful. He reports severe pain to his left hip. He rates his pain as 7/10 on the pain scale. Tramadol was increased to 50 mg Q6H as needed this morning. Patient repeatedly refused pain medication tramadol that his nurse offered at bedside. He eventually took the medication after intervention/education about his pain and treatment modalities by this provider. He denies anxiety or depression. He denies SI/HI/AH/VH. Continue current treatment regimen. PT consult made. 07/21: Reports 4/10 lower back and left hip pain. Cheerful and socializing with peers. Prednisone 40 mg daily x5 days ordered for pain. Continue current treatment regimen. [place] Hospitalist notes she would order more imaging for musculoskeletal pain. 07/22/25: Meet with patient in the presence of park interpreter in sensory room. Patient reports bearable pain on left buttock area, rated pain 2/20. Report he has some happy tears today after talking to his granddaughter who is 5 years as she prays for him to be better to be home soon with family. Report mood and sleep/appetite are good. Denies anxiety/depression or safety concern. He [place] stay [place] of returning to [place]. Report that he can stay with her granddaughter who is 48 y.o in [place]. Explained to patient that he may not get good benefits for health insurance as he has not been here in [place] in a good period of time. Report he has been here more than 3 months. Patient is aware of potential family meeting next week on Friday at 1300 virtually and discharge to follow after. VSs stable, no SOB, O2Sat this morning 92% but improved later on of the day. Ambulate with wheelchair. Bossmanbile, sociall appropriately with peers and staff and attended groups. 07/23/25: Patient slept for 5 hours, medication compliant, no side effects. He is reasonable, social and appropriate. Reports singing he people's vehicles saw about the pig/pork meat. Denies safety concerns. He was not happy regarding the roommate who was snoring loudly, and was not quiet at night which interfere with his sleep. Encourage patient to to use ear plugs she sees if they are helpful. Blood pressure is fluctuated. We will continue to monitor. Ambulating with a walker. Pain is under control. 07/24/25: Patient slept through the night, was compliant with medications, but not compliant with diabetic protocol. Patient has not care for his diet, blood sugar continued to be high, received coverage. Nursing reported the patient was dancing yesterday but has a tantrum moment over food for dinner yesterday, he threw the walker away which was taken away from the patient for safety issues. Patient requests the walker, explained to patient reason why he can not get walker. He walked with normal steady gait. Reports the pain on the hip is improving. Denies safety concerns. Continued to confirm that he wants to stay in [place]. Reported that his granddaughter will come in in person to have a meeting this week. Denies depression or anxiety, sleep is improving. Changing from 5 to 15 minutes safety checks 07/25/25:Patient slept well, compliant with medication. Denies side effects. POC remains high, asymptomatic, received coverage per Protocol with extra 4 unit of Insulin prior dinner. Denies pain, walking with steady gait. Denies anxiety/depression. Denies SI/SIB/HI/AVH. Patient reports that [place] been in this [place]. Confirm he wants to stay in [place]. Do not want to return to [place]. Per , meeting with family went well- virtual. Patient will return to [place]. will work on aftercare plan and FLU appointment. 07/26/25: In person Take Down Sorter utilized. Reports improve in sleep, , medication compliant, denies safety concerns, denies depression and anxiety. Denies pain. Patient reported that he did not attend to family meeting yesterday. Educate patient on healthy food/fluid choices as his blood sugar was elevated much more higher than normal. He spent sometime napping in his room. No behavior issues. Reports sore throat and headache yesterday. Denies headache this morning but reported that he was coughing at night and has sore throat now. 07/27: Nursing also reports that the patient's sugar significantly increased while on prednisone, but has been trending down. Blood glucose in the past 2 days between 413 and 291. Continue current treatment regimen. 07/28: He reports ?mild? sore throat which started this morning. No associated symptoms. Continue current treatment regimen. 07/29/25: In-person lang interpreter presence during want to on assessment. Patient reports slept okay last night, appetite good. Denies side effects from medications. Denies anxiety or depression. Sound having sore throat. Reported that fell last night and he has his head badly to the wall. Per nursing, patient lowered himself to the floor. He was irritable agitated at times yesterday. Refused MiraLax this morning. Reports head take 2/10 where he hit the wall yesterday. Patient having questioned regarding when he is discharged. Informed the patient that dialysis social worker is working on sending the referral out. Pending results. 07/30: Chest XR pending. Continue current medications. 07/31: continue current management and treatment plan. 08/01/25: Interpretive, dialysis social worker, and this provider met with patient in dining area. Patient reports slept well, feeling rested, no appetite issues. Denies depression or anxiety. No chest pain. No pain anywhere else except for sore throat which he said his feels better today. Review with patient regarding chest x-ray and EKG which was done over the weekends. Educate patient on healthy food and fluid choices. Patient observed and overheard snoring loudly at dinning table before lunch time. dobie worker continue to send out referral to assisted facility, especially in [facility]. Patient has been declined from other places so far. Patient also seen hospitalist Friday night regarding elevated of BUN/creatinine which consistently with see CKD, encourage fluid intake Plan: Bilateral hip pain-resolved Patient does not have any radiculopathy, numbness or tingling in his legs. He is ambulating at baseline without any antalgic gait, not using a walker. Denying any hip pain. CKD 3B Stable. Avoid nephrotoxins. Right lower lobe pneumonia Noted on chest x-ray Continue Levaquin 750 daily for 5 days due to PCN allergy Updraft nebulizer as needed Patient with a history of asthma, not on any maintenance meds. Continue Spiriva Improving Laceration to dorsum of left hand and fingers/scratch abrasions to calf. Continue local wound care Wound care following. No evidence of infection Coronary artery disease/history of stroke/CHF/hypertension Continue aspirin, Plavix, atorvastatin and Jardiance. Continue metoprolol 50 mg daily extended release Continue losartan at 25 mg daily, blood pressure is stable Continue Lasix twice daily at reduced dose in pm. Daily weights. Weight stable. 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 Add glargine 10 units in the morning. Recent A1c 9.1 Can consider starting Trulicity outpatient Continue gabapentin 600 t.i.d. Blood sugars elevated due to prednisone- last dose today Chronic kidney disease Stage 3 B Baseline 1.2 Avoid nephrotoxins Continue to monitor-nephrology consult pending BPH Continue tamsulosin GERD Continue Protonix Vitamin-D deficiency Continue vitamin-D daily Patient educated on: diagnosis, medication risk/benefits, therapeutic strategies and medical condition Informed Consent: understands and further education needed Reason for continued inpatient stay Substantial Risk for: med/psych decompensation Time Spent With Patient Time: Total time managing care of this patient today ____ minutes.
[2025-08-01 16:09] LABS: Glucose, Whole Blood 255 mg/dL (60-115)
[2025-08-01 19:37] VITALS: BP 133/62; PULSE 76; RESP 16; TEMP 36.3; O2SAT 95
[2025-08-01 19:39] LABS: Glucose, Whole Blood 397 mg/dL (60-115)
[2025-08-01] MEDS: Insulin Glargine,Hum.rec.anlog 100 UNIT/ML 10 ML VIAL 50 UNIT SUBCUT (19:52)
[2025-08-02 06:00] VITALS: BMI 39.5
[2025-08-02 06:27] LABS: Glucose, Whole Blood 192 mg/dL (60-115)
[2025-08-02 08:00] VITALS: BP 121/95; PULSE 80; RESP 16; TEMP 36.8; O2SAT 93
[2025-08-02] MEDS: Tiotropium Bromide 2.5 mcg 1 PUFF/2.5 MCG MIST.INHAL 2 PUFF INHALE (08:22)
[2025-08-02] MEDS: Insulin Glargine,Hum.rec.anlog 100 UNIT/ML 10 ML VIAL 10 UNIT SUBCUT (08:24)
[2025-08-02] MEDS: Metoprolol Succinate ER 50 MG TAB.ER.24H PO (08:25)
[2025-08-02] MEDS: Ferrous Sulfate 324 MG TABLET.DR PO ×3 (08:25→20:45)
--- NOTE | 2025-08-02 11:19 | HO.PSYCHPN ---
Subjective Subjective Date of Service: 08/02/25 Reason For Visit: Depression Subjective Notes: Conditional Voluntary Healthcare Proxy: Yes Guardianship: No Medical Problems Affecting Mental Status: No Interim History: Medical record and nursing notes reviewed; case discussed during rounds with team/nursing staff, and met with patient for supportive therapy/psychoeducation, as well as medication management. Patient is visible in common areas, intermittently attended groups. Compliant with meds. NO side effects. Denies chest pain/pain/or sore throat. Slept for 7 hours, continue to reinforce on health choices of food and fluid as Blood sugar mostly not controlled as patient SW will set up family meeting next week to review with family of discharge plan/placement expectation. Medication Compliance: Yes Side effects from medications: No Attending Groups: Yes Review of Systems Acute medical concerns: No Medical Review of Systems: unchanged Review of Systems Review of Systems Const : no body aches, no chills, no excessive sweating and no fatigue Eyes: no blurry vision and no change in vision ENT: no bleeding gums and no change in voice, no dizziness Card: no chest pain, ?no shortness of breath, no orthopnea, no PND Resp: report cough last night with sore throat now, ?no excessive phlegm production, no SOB GI: no abdominal pain and no nausea, no vomiting : no hematuria, no urinary frequency and no difficulty voiding Musc: no abnormal gait, no bone pain Neuro: no ?abnormal movements, no weakness,and +behavioral changes Psych: no behavioral changes and no change in appetite Endo: no change in body appearance, no cold intolerance, Yes all other systems are reviewed and are negative Mental Status Exam Mental Status Exam Narrative: Appearance: Casually dressed, adequate hygiene Behavior: Calm cooperative throughout the interview. Pleasant. Appropriate eye contact, no signs of psychomotor agitation or psychomotor retardation present Speech: Normal volume and prosody Thought process: Linear Thought content: WNL. organized Mood: Good Affect: mood-congruent SI:denies HI:denies VH/AH:none Delusions: None Insight/judgment: Improved Memory/cog: Alert and oriented. grossly intact to conversational testing. Romansh moca was 17/30 on 07/27/2025 Diagnostics Vital Signs (24Hr): Vital Signs - 24 hr 08/01/25 19:37 08/02/25 08:00 Temperature 97.3 F 98.2 F Pulse Rate 76 80 Respiratory Rate 16 16 Blood Pressure 133/62 121/95 H Pulse Oximetry 95 93 Oxygen Delivery Method Room Air Room Air BMI result Body Mass Index 39.5 Labs 07/30/25 08:03 Labs: Laboratory Results - last 48 hr 07/31/25 07/31/25 07/31/25 11:24 16:14 19:43 POC Glucose 269 H 242 H 287 H 08/01/25 08/01/25 08/01/25 05:39 11:03 15:59 POC Glucose 226 H 239 H 255 H 08/01/25 08/02/25 19:32 06:22 POC Glucose 397 H* 192 H Imaging Radiology Impressions: ITS Impressions Chest X-Ray 07/15/25 15:24 IMPRESSION: Clear lungs. Electronically signed by: Brice Bunch MD 07/15/2025 03:40 PM EDT RP Hip/Pelvis X-Ray 07/19/25 11:20 IMPRESSION: Patchy increased sclerosis which may be due to renal osteodystrophy. Other etiologies including metastatic disease are not excluded. Clinical correlation is recommended. Electronically signed by: Brice Bunch MD 07/19/2025 11:49 AM EDT RP Lumbar Spine X-Ray 07/19/25 11:20 IMPRESSION: Mild degenerative disc disease. Electronically signed by: Brice Bunch MD 07/19/2025 11:50 AM EDT RP Chest X-Ray 07/19/25 11:33 IMPRESSION: Right lower lobe pneumonia. Follow-up is recommended to document resolution. Electronically signed by: Brice Bunch MD 07/19/2025 11:44 AM EDT RP Abdomen/Pelvis CT 07/21/25 15:26 IMPRESSION: Lobulated fat-containing umbilical hernia. Atelectasis versus airspace disease, lung bases. Abundant stool without intestinal obstruction pattern. Simple cyst, left kidney. Degenerative changes both hips with questionable trochanter bursitis. Multilevel thoracolumbar spondylosis resulting in central spinal canal stenosis. Please for to the CT lumbar spine. Fleischner guidelines were followed. 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 Mild narrowing of neural foramina bilaterally at along the lumbar spinal canal. The findings are slightly worse on the right at the T12-L1 disc level there is a right facet joint hypertrophy extending into the neural foramina and a small bony spur extending into right lateral recess at the L2-3 disc level. No abnormal enhancement seen within the lower dorsal or lumbar spinal canal or the region of conus medullaris. If patient has persistent radiculopathy and numbness and tingling in the legs further evaluation with neurology may be helpful. Electronically signed by: Gabo Bush MD 07/22/2025 07:26 AM EDT RP Medications Medications Current Medications Acetaminophen (Acetaminophen 325 Mg Tablet) 650 mg PO Q6H PRN PRN Reason: Headache/Pain, Scale 1-10 Last Admin: 07/29/25 01:07 Dose: 650 mg Al Hydroxide/Mg Hydroxide (Magnesium Hydrox/Alum Hydrox 30 Ml Oral.Susp) 30 ml PO Q6H PRN PRN Reason: Heartburn/Nausea Last Admin: 07/25/25 09:57 Dose: 30 ml Albuterol Sulfate (Albuterol Sulfate 90 Mcg 8 Gm Inhaler) 2 puff INHALE RQ4H PRN PRN Reason: SOB/Wheezing Last Admin: 07/31/25 02:16 Dose: 2 puff Aspirin (Aspirin 81 Mg Tab.Chew) 81 mg PO DAILY [facility] Last Admin: 08/02/25 08:25 Dose: 81 mg Atorvastatin Calcium (Atorvastatin Calcium 40 Mg Tablet) 40 mg PO BEDTIME [facility] Last Admin: 08/01/25 19:53 Dose: 40 mg Benzocaine (Throat Lozenge, Medicated Lozenge) 1 lozenge MUCOUS MEM Q2H PRN PRN Reason: Sore Throat Last Admin: 07/30/25 20:15 Dose: 1 lozenge Clopidogrel Bisulfate (Clopidogrel Bisulfate 75 Mg Tablet) 75 mg PO DAILY [facility] Last Admin: 08/02/25 08:25 Dose: 75 mg Cyanocobalamin (Cyanocobalamin (Vitamin B-12) 1,000 Mcg Tablet) 1,000 mcg PO DAILY [facility] Last Admin: 08/02/25 08:25 Dose: 1,000 mcg Empagliflozin (Empagliflozin 10 Mg Tablet) 10 mg PO DAILY [facility] Last Admin: 08/02/25 08:25 Dose: 10 mg Ergocalciferol (Ergocalciferol (Vitamin D2) 1,250 Mcg Capsule) 1,250 mcg PO Fr@0900 [facility] Stop: 09/09/25 09:01 Last Admin: 07/29/25 07:49 Dose: 1,250 mcg Ferrous Sulfate (Ferrous Sulfate 324 Mg Tablet.Dr) 324 mg PO TID [facility] Last Admin: 08/02/25 08:25 Dose: 324 mg Fluticasone Propionate (Fluticasone Propionate Nasal 16 Gm Anderson) 1 spray NOSTRIL-B DAILY [facility] Last Admin: 08/02/25 08:22 Dose: 1 spray Furosemide (Furosemide 40 Mg Tablet) 40 mg PO DAILY [facility] On Hold: 07/20/25 09:00 Furosemide (Furosemide 20 Mg Tablet) 20 mg PO DAILY [facility]; Protocol Last Admin: 08/02/25 08:24 Dose: 20 mg Gabapentin (Gabapentin 600 Mg Tablet) 600 mg PO TID [facility] Last Admin: 08/02/25 08:25 Dose: 600 mg Insulin Glargine (Insulin Glargine,Hum.Rec.Anlog 100 Unit/Ml 10 Ml Vial) 50 unit SUBCUT BEDTIME [facility] Last Admin: 08/01/25 19:52 Dose: 50 unit Insulin Glargine (Insulin Glargine,Hum.Rec.Anlog 100 Unit/Ml 10 Ml Vial) 10 unit SUBCUT DAILY [facility] Last Admin: 08/02/25 08:24 Dose: 10 unit Insulin Human Lispro (Insulin Lispro 100 Unit/Ml 3 Ml Vial) 0 unit SUBCUT QIDACHS [facility]; Protocol Last Admin: 08/02/25 08:24 Dose: 2 unit Lorazepam (Lorazepam 0.5 Mg Tablet) 0.5 mg PO BID PRN PRN Reason: Anxiety Last Admin: 08/01/25 22:14 Dose: 0.5 mg Losartan Potassium (Losartan Potassium 25 Mg Tablet) 25 mg PO DAILY [facility] On Hold: 07/17/25 09:33 Last Admin: 07/17/25 08:19 Dose: 25 mg Magnesium Hydroxide (Milk Of Magnesia 30 Ml Oral.Susp) 30 ml PO DAILY PRN PRN Reason: Constipation Melatonin (Melatonin 3 Mg Tablet) 6 mg PO BEDTIME [facility] Last Admin: 08/01/25 19:53 Dose: 6 mg Metoprolol Succinate (Metoprolol Succinate Er 50 Mg Tab.Er.24h) 50 mg PO DAILY [facility] Last Admin: 08/02/25 08:25 Dose: 50 mg Montelukast Sodium (Montelukast Sodium 10 Mg Tablet) 10 mg PO BEDTIME [facility] Last Admin: 08/01/25 19:54 Dose: 10 mg Pantoprazole Sodium (Pantoprazole Sodium 20 Mg Tablet.Dr) 40 mg PO DAILY [facility] Last Admin: 08/02/25 08:25 Dose: 40 mg Polyethylene Glycol (Polyethylene Glycol 3350 17 Gm Powd.Pack) 17 gm PO DAILY PRN PRN Reason: Constipation Risperidone (Risperidone 1 Mg Tablet) 1 mg PO BID [facility] Last Admin: 08/02/25 08:24 Dose: 1 mg Tamsulosin HCl (Tamsulosin Hcl 0.4 Mg Capsule) 0.4 mg PO BEDTIME [facility] Last Admin: 08/01/25 19:55 Dose: 0.4 mg Thiamine HCl (Thiamine Hcl 100 Mg Tablet) 100 mg PO DAILY [facility] Last Admin: 08/02/25 08:25 Dose: 100 mg Tiotropium Dodson (Tiotropium Dodson 2.5 Mcg 1 Puff/2.5 Mcg Mist.Inhal) 2 puff INHALE RDAILY [facility] Last Admin: 08/02/25 08:22 Dose: 2 puff Tizanidine HCl (Tizanidine Hcl 4 Mg Tablet) 2 mg PO BEDTIME [facility] Last Admin: 08/01/25 19:54 Dose: 2 mg Tramadol HCl (Tramadol Hcl 50 Mg Tablet) 50 mg PO Q6H PRN PRN Reason: severe left hip pain Last Admin: 07/30/25 00:46 Dose: 50 mg Trazodone HCl (Trazodone Hcl 50 Mg Tablet) 50 mg PO BEDTIME MRX1 PRN PRN Reason: Insomnia Last Admin: 08/01/25 22:14 Dose: 50 mg Allergies Allergies Allergy/AdvReac Type Severity Reaction Status Date / Time Penicillins (PCN) AdvReac Unknown Verified 07/14/25 14:00 Assessment & Plan Assessment & Plan (1) RLL pneumonia: Status: Acute Code(s): J18.9 - Pneumonia, unspecified organism Plan Mr. Eden is a 75 year-old male who was initially brought to [facility] via EMS on [address] by police after [place] was [place] the park inflicting laceration on left hand. No stitches required. He continued to self harm while in the ED. He reports he is hearing voices (reports male voice saying I want to see blood repeatedly), which then led to him acting on the voices thinking it may quiet them down. Although he endorses depressed mood in context of not having stable place to live and passive SI, he reports he does not want to but can't help if voices are ongoing. He reports he is not hearing voices now. We discussed risks, benefits and alternative treatment options. He agreed to start risperidone 1mg po BID. Hospital course: 07/19 continue tx. consult to hospitalist- left hip pain. no fall or injury. Updraft nebulizer as needed Patient with a history of asthma, not on any maintenance meds. Will start Spiriva 07/20: Patient found sitting on his bed with his feet on the floor and arms around his walker. He is irritable and tearful. He reports severe pain to his left hip. He rates his pain as 7/10 on the pain scale. Tramadol was increased to 50 mg Q6H as needed this morning. Patient repeatedly refused pain medication tramadol that his nurse offered at bedside. He eventually took the medication after intervention/education about his pain and treatment modalities by this provider. He denies anxiety or depression. He denies SI/HI/AH/VH. Continue current treatment regimen. PT consult made. 07/21: Reports 4/10 lower back and left hip pain. Cheerful and socializing with peers. Prednisone 40 mg daily x5 days ordered for pain. Continue current treatment regimen. [place] Hospitalist notes she would order more imaging for musculoskeletal pain. 07/22/25: Meet with patient in the presence of county manager in sensory room. Patient reports bearable pain on left buttock area, rated pain 2/20. Report he has some happy tears today after talking to his granddaughter who is 5 years as she prays for him to be better to be home soon with family. Report mood and sleep/appetite are good. Denies anxiety/depression or safety concern. He says he would rather stay in [place] instead of returning to [place]. Report that he can stay with her granddaughter who is 48 y.o in [place]. Explained to patient that he may not get good benefits for health insurance as he has not been here in [place] in a good period of time. Report he has been here more than 3 months. Patient is aware of potential family meeting next week on Friday at 1300 virtually and discharge to follow after. VSs stable, no SOB, O2Sat this morning 92% but improved later on of the day. Ambulate with wheelchair. Visbile, sociall appropriately with peers and staff and attended groups. 07/23/25: Patient slept for 5 hours, medication compliant, no side effects. He is reasonable, social and appropriate. Reports singing he people's [employer] saw about the pig/pork meat. Denies safety concerns. He was not happy regarding the roommate who was snoring loudly, and was not quiet at night which interfere with his sleep. Encourage patient to to use ear plugs she sees if they are helpful. Blood pressure is fluctuated. We will continue to monitor. Ambulating with a walker. Pain is under control. 07/24/25: Patient slept through the night, was compliant with medications, but not compliant with diabetic protocol. Patient has not care for his diet, blood sugar continued to be high, received coverage. Nursing reported the patient was dancing yesterday but has a tantrum moment over food for dinner yesterday, he threw the walker away which was taken away from the patient for safety issues. Patient requests the walker, explained to patient reason why he can not get walker. He walked with normal steady gait. Reports the pain on the hip is improving. Denies safety concerns. Continued to confirm that he wants to stay in [place]. Reported that his granddaughter will come in in person to have a meeting this week. Denies depression or anxiety, sleep is improving. Changing from 5 to 15 minutes safety checks 07/25/25:Patient slept well, compliant with medication. Denies side effects. POC remains high, asymptomatic, received coverage per Protocol with extra 4 unit of Insulin prior dinner. Denies pain, walking with steady gait. Denies anxiety/depression. Denies SI/SIB/HI/AVH. Patient reports that he has been in this country [place] 10 [place]. Confirm he wants to stay in [place]. Do not want to return to [place]. Per EDITH, meeting with family went well- virtual. [place] return to [place]. SW will work on aftercare plan and FLU appointment. 07/26/25: In person Vacuum Form Operator utilized. Reports improve in sleep, , medication compliant, denies safety concerns, denies depression and anxiety. Denies pain. Patient reported that he did not attend to family meeting yesterday. Educate patient on healthy food/fluid choices as his blood sugar was elevated much more higher than normal. He spent sometime napping in his room. No behavior issues. Reports sore throat and headache yesterday. Denies headache this morning but reported that he was coughing at night and has sore throat now. 07/27: Nursing also reports that the patient's sugar significantly increased while on prednisone, but has been trending down. Blood glucose in the past 2 days between 413 and 291. Continue current treatment regimen. 07/28: He reports ?mild? sore throat which started this morning. No associated symptoms. Continue current treatment regimen. 07/29/25: In-person field applications specialist presence during want to on assessment. Patient reports slept okay last night, appetite good. Denies side effects from medications. Denies anxiety or depression. Sound having sore throat. Reported that fell last night and he has his head badly to the wall. Per nursing, patient lowered himself to the floor. He was irritable agitated at times yesterday. Refused MiraLax this morning. Reports head take 2/10 where he hit the wall yesterday. Patient having questioned regarding when he is discharged. Informed the patient that social services director is working on sending the referral out. Pending results. 07/30: Chest XR pending. Continue current medications. 07/31: continue current management and treatment plan. 08/01/25: Interpretive, social services director, and this provider met with patient in dining area. Patient reports slept well, feeling rested, no appetite issues. Denies depression or anxiety. No chest pain. No pain anywhere else except for sore throat which he said his feels better today. Review with patient regarding chest x-ray and EKG which was done over the weekends. Educate patient on healthy food and fluid choices. Patient observed and overheard snoring loudly at dinning table before lunch time. wharf worker continue to send out referral to intermediate facility, especially in [facility]. Patient has been declined from other places so far. Patient also seen hospitalist Friday night regarding elevated of BUN/creatinine which consistently with see CKD, encourage fluid intake 08/02/25: Patient is visible in common areas, intermittently attended groups. Compliant with meds. NO side effects. Denies chest pain/pain/or sore throat. Slept for 7 hours, continue to reinforce on health choices of food and fluid as Blood sugar mostly not controlled as patient SW will set up family meeting next week to review with family of discharge plan/placement expectation. Patient was denied from 4 places out of 5 referalls sent out yesterday. CHange Miralax to PRN as patient has been refused it. Plan: Bilateral hip pain-resolved Patient does not have any radiculopathy, numbness or tingling in his legs. He is ambulating at baseline without any antalgic gait, not using a walker. Denying any hip pain. CKD 3B Stable. Avoid nephrotoxins. Right lower lobe pneumonia Noted on chest x-ray Continue Levaquin 750 daily for 5 days due to PCN allergy Updraft nebulizer as needed Patient with a history of asthma, not on any maintenance meds. Continue Spiriva Improving Laceration to dorsum of left hand and fingers/scratch abrasions to calf. Continue local wound care Wound care following. No evidence of infection Coronary artery disease/history of stroke/CHF/hypertension Continue aspirin, Plavix, atorvastatin and Jardiance. Continue metoprolol 50 mg daily extended release Continue losartan at 25 mg daily, blood pressure is stable Continue Lasix twice daily at reduced dose in pm. Daily weights. Weight stable. 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 Add glargine 10 units in the morning. Recent A1c 9.1 Can consider starting Trulicity outpatient Continue gabapentin 600 t.i.d. Blood sugars elevated due to prednisone- last dose today Chronic kidney disease Stage 3 B Baseline 1.2 Avoid nephrotoxins Continue to monitor-nephrology consult pending BPH Continue tamsulosin GERD Continue Protonix Vitamin-D deficiency Continue vitamin-D daily Patient educated on: medication risk/benefits and therapeutic strategies Informed Consent: understands Reason for continued inpatient stay Substantial Risk for: med/psych decompensation Time Spent With Patient Time: Total time managing care of this patient today ____ minutes.
[2025-08-02 11:21] LABS: Glucose, Whole Blood 318 mg/dL (60-115)
[2025-08-02 16:24] LABS: Glucose, Whole Blood 236 mg/dL (60-115)
[2025-08-02 20:00] VITALS: BP 146/66; PULSE 82; RESP 16; TEMP 37.6; O2SAT 97
[2025-08-02 20:01] LABS: Glucose, Whole Blood 274 mg/dL (60-115)
[2025-08-02] MEDS: Insulin Glargine,Hum.rec.anlog 100 UNIT/ML 10 ML VIAL 50 UNIT SUBCUT (20:41)
[2025-08-03 06:58] LABS: Glucose, Whole Blood 172 mg/dL (60-115)
[2025-08-03 08:00] VITALS: BP 170/65; PULSE 68; RESP 18; TEMP 36.3; O2SAT 99
[2025-08-03] MEDS: Insulin Glargine,Hum.rec.anlog 100 UNIT/ML 10 ML VIAL 10 UNIT SUBCUT (08:35)
[2025-08-03] MEDS: Tiotropium Bromide 2.5 mcg 1 PUFF/2.5 MCG MIST.INHAL 2 PUFF INHALE (08:36)
[2025-08-03] MEDS: Albuterol Sulfate 90 MCG 8 GM INHALER 2 PUFF INHALE ×2 (08:37→20:45)
[2025-08-03] MEDS: Ferrous Sulfate 324 MG TABLET.DR PO ×3 (08:39→20:43)
[2025-08-03 08:42] VITALS: BP 165/70; PULSE 80
[2025-08-03] MEDS: Metoprolol Succinate ER 50 MG TAB.ER.24H PO (08:42)
--- NOTE | 2025-08-03 09:46 | HO.PSYCHPN ---
Subjective Subjective Date of Service: 08/03/25 Reason For Visit: Depression Subjective Notes: Conditional Voluntary Healthcare Proxy: Yes Guardianship: No Medical Problems Affecting Mental Status: No Interim History: Medical record and nursing notes reviewed; case discussed during rounds with team/nursing staff, and met with patient for supportive therapy/psychoeducation, as well as medication management. Patent report sleep well last night. No change in appetite. Denies depression and anxiety,and safety concerns. He appears tired. Patient reports cough at night and chest pain earlier today- not at the assessment. He sound congestion with sore throat. Nursing later on report patient cough up blood. Hospitalist seen patient, some blood when blowing his nose. Lungs are clear. New order for Nasal spray PRN and Mucinex 600mg BID x7days. Medication Compliance: Yes Side effects from medications: No Attending Groups: Intermittent Review of Systems Acute medical concerns: No Medical Review of Systems: unchanged Review of Systems Review of Systems Const : no body aches, no chills, no excessive sweating and no fatigue Eyes: no blurry vision and no change in vision ENT: no bleeding gums and no change in voice, no dizziness Card: no chest pain, ?no shortness of breath, no orthopnea, no PND Resp: report cough last night with sore throat now, ?no excessive phlegm production, no SOB GI: no abdominal pain and no nausea, no vomiting : no hematuria, no urinary frequency and no difficulty voiding Musc: no abnormal gait, no bone pain Neuro: no ?abnormal movements, no weakness,and +behavioral changes Psych: no behavioral changes and no change in appetite Endo: no change in body appearance, no cold intolerance, Yes all other systems are reviewed and are negative Mental Status Exam Mental Status Exam Narrative: Appearance: Casually dressed, adequate hygiene Behavior: Calm, pleasant and cooperative throughout the interview with the presence of medical health researcher. Appropriate eye contact, no signs of psychomotor agitation or psychomotor retardation present Speech: Normal volume and prosody, Thought process: Linear Thought content: WNL. organized Mood: Good but tired Affect: mood-congruent SI:denies HI:denies VH/AH:none Delusions: None Insight/judgment: Improved Memory/cog: Alert and oriented. grossly intact to conversational testing. [place] moca was 17/30 on 07/27/2025 Diagnostics Vital Signs (24Hr): Vital Signs - 24 hr 08/02/25 20:00 08/03/25 08:00 08/03/25 08:42 Temperature 99.7 F 97.4 F Pulse Rate 82 68 80 Respiratory Rate 16 18 Blood Pressure 146/66 H 170/65 H 165/70 H Pulse Oximetry 97 99 Oxygen Delivery Method Room Air Room Air 08/03/25 08:42 Temperature Pulse Rate Respiratory Rate Blood Pressure 165/70 H Pulse Oximetry Oxygen Delivery Method BMI result Body Mass Index 39.5 Labs 07/30/25 08:03 Labs: Laboratory Results - last 48 hr 08/01/25 08/01/25 08/01/25 11:03 15:59 19:32 POC Glucose 239 H 255 H 397 H* 08/02/25 08/02/25 08/02/25 06:22 11:13 16:12 POC Glucose 192 H 318 H 236 H 08/02/25 08/03/25 19:51 06:49 POC Glucose 274 H 172 H Imaging Radiology Impressions: ITS Impressions Chest X-Ray 07/15/25 15:24 IMPRESSION: Clear lungs. Electronically signed by: Brice Bunch MD 07/15/2025 03:40 PM EDT RP Hip/Pelvis X-Ray 07/19/25 11:20 IMPRESSION: Patchy increased sclerosis which may be due to renal osteodystrophy. Other etiologies including metastatic disease are not excluded. Clinical correlation is recommended. Electronically signed by: Brice Bunch MD 07/19/2025 11:49 AM EDT RP Lumbar Spine X-Ray 07/19/25 11:20 IMPRESSION: Mild degenerative disc disease. Electronically signed by: Brice Bunch MD 07/19/2025 11:50 AM EDT RP Chest X-Ray 07/19/25 11:33 IMPRESSION: Right lower lobe pneumonia. Follow-up is recommended to document resolution. Electronically signed by: Brice Bunch MD 07/19/2025 11:44 AM EDT RP Abdomen/Pelvis CT 07/21/25 15:26 IMPRESSION: Lobulated fat-containing umbilical hernia. Atelectasis versus airspace disease, lung bases. Abundant stool without intestinal obstruction pattern. Simple cyst, left kidney. Degenerative changes both hips with questionable trochanter bursitis. Multilevel thoracolumbar spondylosis resulting in central spinal canal stenosis. Please for to the CT lumbar spine. Fleischner guidelines were followed. 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 Mild narrowing of neural foramina bilaterally at along the lumbar spinal canal. The findings are slightly worse on the right at the T12-L1 disc level there is a right facet joint hypertrophy extending into the neural foramina and a small bony spur extending into right lateral recess at the L2-3 disc level. No abnormal enhancement seen within the lower dorsal or lumbar spinal canal or the region of conus medullaris. If patient has persistent radiculopathy and numbness and tingling in the legs further evaluation with neurology may be helpful. Electronically signed by: Gabo Bush MD 07/22/2025 07:26 AM EDT RP Medications Medications Current Medications Acetaminophen (Acetaminophen 325 Mg Tablet) 650 mg PO Q6H PRN PRN Reason: Headache/Pain, Scale 1-10 Last Admin: 07/29/25 01:07 Dose: 650 mg Al Hydroxide/Mg Hydroxide (Magnesium Hydrox/Alum Hydrox 30 Ml Oral.Susp) 30 ml PO Q6H PRN PRN Reason: Heartburn/Nausea Last Admin: 07/25/25 09:57 Dose: 30 ml Albuterol Sulfate (Albuterol Sulfate 90 Mcg 8 Gm Inhaler) 2 puff INHALE RQ4H PRN PRN Reason: SOB/Wheezing Last Admin: 08/03/25 08:37 Dose: 2 puff Aspirin (Aspirin 81 Mg Tab.Chew) 81 mg PO DAILY MARCIA Last Admin: 08/03/25 08:38 Dose: 81 mg Atorvastatin Calcium (Atorvastatin Calcium 40 Mg Tablet) 40 mg PO BEDTIME MARCIA Last Admin: 08/02/25 20:43 Dose: 40 mg Benzocaine (Throat Lozenge, Medicated Lozenge) 1 lozenge MUCOUS MEM Q2H PRN PRN Reason: Sore Throat Last Admin: 07/30/25 20:15 Dose: 1 lozenge Clopidogrel Bisulfate (Clopidogrel Bisulfate 75 Mg Tablet) 75 mg PO DAILY COUNTS INCLUDE 234 BEDS AT THE [facility] Last Admin: 08/03/25 08:39 Dose: 75 mg Cyanocobalamin (Cyanocobalamin (Vitamin B-12) 1,000 Mcg Tablet) 1,000 mcg PO DAILY COUNTS INCLUDE 234 BEDS AT THE [facility] Last Admin: 08/03/25 08:38 Dose: 1,000 mcg Empagliflozin (Empagliflozin 10 Mg Tablet) 10 mg PO DAILY COUNTS INCLUDE 234 BEDS AT THE [facility] Last Admin: 08/03/25 08:38 Dose: 10 mg Ergocalciferol (Ergocalciferol (Vitamin D2) 1,250 Mcg Capsule) 1,250 mcg PO Fr@0900 COUNTS INCLUDE 234 BEDS AT THE [facility] Stop: 09/09/25 09:01 Last Admin: 07/29/25 07:49 Dose: 1,250 mcg Ferrous Sulfate (Ferrous Sulfate 324 Mg Tablet.Dr) 324 mg PO TID COUNTS INCLUDE 234 BEDS AT THE [facility] Last Admin: 08/03/25 08:39 Dose: 324 mg Fluticasone Propionate (Fluticasone Propionate Nasal 16 Gm [place]) 1 spray NOSTRIL-B DAILY COUNTS INCLUDE 234 BEDS AT THE [facility] Last Admin: 08/03/25 08:38 Dose: 1 spray Furosemide (Furosemide 40 Mg Tablet) 40 mg PO DAILY MARCIA On Hold: 07/20/25 09:00 Furosemide (Furosemide 20 Mg Tablet) 20 mg PO DAILY COUNTS INCLUDE 234 BEDS AT THE [facility]; Protocol Last Admin: 08/03/25 08:42 Dose: 20 mg Gabapentin (Gabapentin 600 Mg Tablet) 600 mg PO TID COUNTS INCLUDE 234 BEDS AT THE [facility] Last Admin: 08/03/25 08:38 Dose: 600 mg Insulin Glargine (Insulin Glargine,Hum.Rec.Anlog 100 Unit/Ml 10 Ml Vial) 50 unit SUBCUT BEDTIME COUNTS INCLUDE 234 BEDS AT THE [facility] Last Admin: 08/02/25 20:41 Dose: 50 unit Insulin Glargine (Insulin Glargine,Hum.Rec.Anlog 100 Unit/Ml 10 Ml Vial) 10 unit SUBCUT DAILY COUNTS INCLUDE 234 BEDS AT THE [facility] Last Admin: 08/03/25 08:35 Dose: 10 unit Insulin Human Lispro (Insulin Lispro 100 Unit/Ml 3 Ml Vial) 0 unit SUBCUT QIDACHS COUNTS INCLUDE 234 BEDS AT THE [facility]; Protocol Last Admin: 08/03/25 08:35 Dose: 2 unit Lorazepam (Lorazepam 0.5 Mg Tablet) 0.5 mg PO BID PRN PRN Reason: Anxiety Last Admin: 08/01/25 22:14 Dose: 0.5 mg Losartan Potassium (Losartan Potassium 25 Mg Tablet) 25 mg PO DAILY MARCIA On Hold: 10/12/25 09:33 Last Admin: 07/17/25 08:19 Dose: 25 mg Magnesium Hydroxide (Milk Of Magnesia 30 Ml Oral.Susp) 30 ml PO DAILY PRN PRN Reason: Constipation Melatonin (Melatonin 3 Mg Tablet) 6 mg PO BEDTIME COUNTS INCLUDE 234 BEDS AT THE [facility] Last Admin: 08/02/25 20:43 Dose: 6 mg Metoprolol Succinate (Metoprolol Succinate Er 50 Mg Tab.Er.24h) 50 mg PO DAILY COUNTS INCLUDE 234 BEDS AT THE [facility] Last Admin: 08/03/25 08:42 Dose: 50 mg Montelukast Sodium (Montelukast Sodium 10 Mg Tablet) 10 mg PO BEDTIME COUNTS INCLUDE 234 BEDS AT THE [facility] Last Admin: 08/02/25 20:44 Dose: 10 mg Pantoprazole Sodium (Pantoprazole Sodium 20 Mg Tablet.Dr) 40 mg PO DAILY COUNTS INCLUDE 234 BEDS AT THE [facility] Last Admin: 08/03/25 08:39 Dose: 40 mg Polyethylene Glycol (Polyethylene Glycol 3350 17 Gm Powd.Pack) 17 gm PO DAILY PRN PRN Reason: Constipation Risperidone (Risperidone 1 Mg Tablet) 1 mg PO BID COUNTS INCLUDE 234 BEDS AT THE [facility] Last Admin: 08/03/25 08:38 Dose: 1 mg Tamsulosin HCl (Tamsulosin Hcl 0.4 Mg Capsule) 0.4 mg PO BEDTIME COUNTS INCLUDE 234 BEDS AT THE [facility] Last Admin: 08/02/25 20:44 Dose: 0.4 mg Thiamine HCl (Thiamine Hcl 100 Mg Tablet) 100 mg PO DAILY COUNTS INCLUDE 234 BEDS AT THE [facility] Last Admin: 08/03/25 08:38 Dose: 100 mg Tiotropium [place] (Tiotropium [place] 2.5 Mcg 1 Puff/2.5 Mcg Mist.Inhal) 2 puff INHALE RDAILY COUNTS INCLUDE 234 BEDS AT THE [facility] Last Admin: 08/03/25 08:36 Dose: 2 puff Tizanidine HCl (Tizanidine Hcl 4 Mg Tablet) 2 mg PO BEDTIME COUNTS INCLUDE 234 BEDS AT THE [facility] Last Admin: 08/02/25 20:43 Dose: 2 mg Tramadol HCl (Tramadol Hcl 50 Mg Tablet) 50 mg PO Q6H PRN PRN Reason: severe left hip pain Last Admin: 08/02/25 21:29 Dose: 50 mg Trazodone HCl (Trazodone Hcl 50 Mg Tablet) 50 mg PO BEDTIME MRX1 PRN PRN Reason: Insomnia Last Admin: 08/01/25 22:14 Dose: 50 mg Allergies Allergies Allergy/AdvReac Type Severity Reaction Status Date / Time Penicillins (PCN) AdvReac Unknown Verified 07/14/25 14:00 Assessment & Plan Assessment & Plan (1) RLL pneumonia: Status: Acute Code(s): J18.9 - Pneumonia, unspecified organism Plan Mr. Eden is a 75 year-old male who was initially brought to [facility] via EMS on [address] by police after [place] was [place] the [place] inflicting laceration on left hand. No stitches required. He continued to self harm while in the ED. He reports he is hearing voices (reports male voice saying I want to see blood repeatedly), which then led to him acting on the voices thinking it may quiet them down. Although he endorses depressed mood in context of not having stable place to live and passive SI, he reports he does not want to but can't help if voices are ongoing. He reports he is not hearing voices now. We discussed risks, benefits and alternative treatment options. He agreed to start risperidone 1mg po BID. Hospital course: 07/19 continue tx. consult to hospitalist- left hip pain. no fall or injury. Updraft nebulizer as needed Patient with a history of asthma, not on any maintenance meds. Will start Spiriva 07/20: Patient found sitting on his bed with his feet on the floor and arms around his walker. He is irritable and tearful. He reports severe pain to his left hip. He rates his pain as 7/10 on the pain scale. Tramadol was increased to 50 mg Q6H as needed this morning. Patient repeatedly refused pain medication tramadol that his nurse offered at bedside. He eventually took the medication after intervention/education about his pain and treatment modalities by this provider. He denies anxiety or depression. He denies SI/HI/AH/VH. Continue current treatment regimen. PT consult made. 07/21: Reports 4/10 lower back and left hip pain. Cheerful and socializing with peers. Prednisone 40 mg daily x5 days ordered for pain. Continue current treatment regimen. [place] Hospitalist notes she would order more imaging for musculoskeletal pain. 07/22/25: Meet with patient in the presence of medical health researcher in sensory room. Patient reports bearable pain on left buttock area, rated pain 2/20. Report he has some happy tears today after talking to his granddaughter who is 5 years as she prays for him to be better to be home soon with family. Report mood and sleep/appetite are good. Denies anxiety/depression or safety concern. He says he would rather stay in [place] instead of returning to [place]. Report that he can stay with her granddaughter who is 48 y.o in [place]. Explained to patient that he may not get good benefits for health insurance as he has not been here in [place] in a good period of time. Report he has been here more than 3 months. Patient is aware of potential family meeting next week on Friday at 1300 virtually and discharge to follow after. VSs stable, no SOB, O2Sat this morning 92% but improved later on of the day. Ambulate with wheelchair. Visbile, sociall appropriately with peers and staff and attended groups. 07/23/25: Patient slept for 5 hours, medication compliant, no side effects. He is reasonable, social and appropriate. Reports singing he people's vehicles saw about the pig/pork meat. Denies safety concerns. He was not happy regarding the roommate who was snoring loudly, and was not quiet at night which interfere with his sleep. Encourage patient to to use ear plugs she sees if they are helpful. Blood pressure is fluctuated. We will continue to monitor. Ambulating with a walker. Pain is under control. 07/24/25: Patient slept through the night, was compliant with medications, but not compliant with diabetic protocol. Patient has not care for his diet, blood sugar continued to be high, received coverage. Nursing reported the patient was dancing yesterday but has a tantrum moment over food for dinner yesterday, he threw the walker away which was taken away from the patient for safety issues. Patient requests the walker, explained to patient reason why he can not get walker. He walked with normal steady gait. Reports the pain on the hip is improving. Denies safety concerns. Continued to confirm that he wants to stay in [place]. Reported that his granddaughter will come in in person to have a meeting this week. Denies depression or anxiety, sleep is improving. Changing from 5 to 15 minutes safety checks 07/25/25:Patient slept well, compliant with medication. Denies side effects. POC remains high, asymptomatic, received coverage per Protocol with extra 4 unit of Insulin prior dinner. Denies pain, walking with steady gait. Denies anxiety/depression. Denies SI/SIB/HI/AVH. Patient reports that he has been in this country for 10 years. Confirm he wants to stay in [place]. Do not want to return to [place]. Per , meeting with family went well- virtual. Patient will return to [place]. will work on aftercare plan and FLU appointment. 07/26/25: In person Statistics Manager utilized. Reports improve in sleep, , medication compliant, denies safety concerns, denies depression and anxiety. Denies pain. Patient reported that he did not attend to family meeting yesterday. Educate patient on healthy food/fluid choices as his blood sugar was elevated much more higher than normal. He spent sometime napping in his room. No behavior issues. Reports sore throat and headache yesterday. Denies headache this morning but reported that he was coughing at night and has sore throat now. 07/27: Nursing also reports that the patient's sugar significantly increased while on prednisone, but has been trending down. Blood glucose in the past 2 days between 413 and 291. Continue current treatment regimen. 07/28: He reports ?mild? sore throat which started this morning. No associated symptoms. Continue current treatment regimen. 07/29/25: In-person latin dance instructor presence during want to on assessment. Patient reports slept okay last night, appetite good. Denies side effects from medications. Denies anxiety or depression. Sound having sore throat. Reported that fell last night and he has his head badly to the wall. Per nursing, patient lowered himself to the floor. He was irritable agitated at times yesterday. Refused MiraLax this morning. Reports head take 2/10 where he hit the wall yesterday. Patient having questioned regarding when he is discharged. Informed the patient that bilingual social worker is working on sending the referral out. Pending results. 07/30: Chest XR pending. Continue current medications. 07/31: continue current management and treatment plan. 08/01/25: Interpretive, bilingual social worker, and this provider met with patient in dining area. Patient reports slept well, feeling rested, no appetite issues. Denies depression or anxiety. No chest pain. No pain anywhere else except for sore throat which he said his feels better today. Review with patient regarding chest x-ray and EKG which was done over the weekends. Educate patient on healthy food and fluid choices. Patient observed and overheard snoring loudly at dinning table before lunch time. metal worker continue to send out referral to penitentiary facility, especially in [facility]. Patient has been declined from other places so far. Patient also seen hospitalist Friday night regarding elevated of BUN/creatinine which consistently with see CKD, encourage fluid intake 08/02/25: Patient is visible in common areas, intermittently attended groups. Compliant with meds. NO side effects. Denies chest pain/pain/or sore throat. Slept for 7 hours, continue to reinforce on health choices of food and fluid as Blood sugar mostly not controlled as patient SW will set up family meeting next week to review with family of discharge plan/placement expectation. Patient was denied from 4 places out of 5 referalls sent out yesterday. [facility] Miralax to PRN as patient has been refused it. 08/03/25: Patent report sleep well last night. No change in appetite. Denies depression and anxiety,and safety concerns. He appears tired. Patient reports cough at night and chest pain earlier today- not at the assessment. He sound congestion with sore throat. Nursing later on report patient cough up blood. Hospitalist seen patient, some blood when blowing his nose. Lungs are clear. SW working on aftercare appointments and family collateral. New order for Nasal spray PRN and Mucinex 600mg BID x7days. Plan: Bilateral hip pain-resolved Patient does not have any radiculopathy, numbness or tingling in his legs. He is ambulating at baseline without any antalgic gait, not using a walker. Denying any hip pain. CKD 3B Stable. Avoid nephrotoxins. Right lower lobe pneumonia Noted on chest x-ray Continue Levaquin 750 daily for 5 days due to PCN allergy Updraft nebulizer as needed Patient with a history of asthma, not on any maintenance meds. Continue Spiriva Improving Laceration to dorsum of left hand and fingers/scratch abrasions to calf. Continue local wound care Wound care following. No evidence of infection Coronary artery disease/history of stroke/CHF/hypertension Continue aspirin, Plavix, atorvastatin and Jardiance. Continue metoprolol 50 mg daily extended release Continue losartan at 25 mg daily, blood pressure is stable Continue Lasix twice daily at reduced dose in pm. Daily weights. Weight stable. 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 Add glargine 10 units in the morning. Recent A1c 9.1 Can consider starting Trulicity outpatient Continue gabapentin 600 t.i.d. Blood sugars elevated due to prednisone- last dose today Chronic kidney disease Stage 3 B Baseline 1.2 Avoid nephrotoxins Continue to monitor-nephrology consult pending BPH Continue tamsulosin GERD Continue Protonix Vitamin-D deficiency Continue vitamin-D daily Patient educated on: diagnosis, medication risk/benefits and therapeutic strategies Informed Consent: understands and further education needed Reason for continued inpatient stay Substantial Risk for: med/psych decompensation Time Spent With Patient Time: Total time managing care of this patient today ____ minutes.
[2025-08-03 12:16] LABS: Glucose, Whole Blood 251 mg/dL (60-115)
--- NOTE | 2025-08-03 15:43 | P.PNIM_ITS ---
Subjective Subjective Date of Service: 08/03/25 Interval History: Asked to see patient for shortness of breath or wheeze. On exam his lungs are clear. Patient is reporting nasal congestion, when he blows his nose he has a small amount of blood. Recently treated with antibiotics for sinus infection as well as an ammonia. His recent chest x-ray was negative. Has no leukocytosis, vitals were stable no tachycardia. Review of Systems Denies chest pain, shortness of breath, abdominal pain. Reports nasal congestion and some blood when he has blows his nose. Physical Exam 2 Exam: Exam: CONST: Alert and oriented, in NAD. Well nourished HEENT: Normocephalic, atraumatic, MMM, Eyes clear, Neck supple RESP: Lungs clear, RRR even and regular HEART:,RRR, S1, S2. No edema GI:Abdomen Soft NT, ND. + BS times four :Deferred SKIN: Warm dry and intact, no visible lesions or rashes NEURO:CN II-XII Intact bilaterally, Sensation intact. Speech clear PSYCH: Normal affect Vital Signs: Vital Signs: Last Vital Signs Temp 97.4 F 08/03/25 08:00 Pulse 80 08/03/25 08:42 Resp 18 08/03/25 08:00 BP 165/70 H 08/03/25 08:42 Pulse Ox 99 08/03/25 08:00 O2 Del Method Room Air 08/03/25 08:00 BMI result Body Mass Index 39.5 Objective Data Active Medications Acetaminophen (Acetaminophen 325 Mg Tablet) 650 mg PO Q6H PRN PRN Reason: Headache/Pain, Scale 1-10 Last Admin: 07/29/25 01:07 Dose: 650 mg Documented By: JONATHAN Al Hydroxide/Mg Hydroxide (Magnesium Hydrox/Alum Hydrox 30 Ml Oral.Susp) 30 ml PO Q6H PRN PRN Reason: Heartburn/Nausea Last Admin: 07/25/25 09:57 Dose: 30 ml Documented By: HAL Albuterol Sulfate (Albuterol Sulfate 90 Mcg 8 Gm Inhaler) 2 puff INHALE RQ4H PRN PRN Reason: SOB/Wheezing Last Admin: 08/03/25 08:37 Dose: 2 puff Documented By: ELLEN Aspirin (Aspirin 81 Mg Tab.Chew) 81 mg PO DAILY MARCIA Last Admin: 08/03/25 08:38 Dose: 81 mg Documented By: ELLEN Atorvastatin Calcium (Atorvastatin Calcium 40 Mg Tablet) 40 mg PO BEDTIME [facility] Last Admin: 08/02/25 20:43 Dose: 40 mg Documented By: ALEXANDRA Benzocaine (Throat Lozenge, Medicated Lozenge) 1 lozenge MUCOUS MEM Q2H PRN PRN Reason: Sore Throat Last Admin: 07/30/25 20:15 Dose: 1 lozenge Documented By: ESTRELLITA Clopidogrel Bisulfate (Clopidogrel Bisulfate 75 Mg Tablet) 75 mg PO DAILY [facility] Last Admin: 08/03/25 08:39 Dose: 75 mg Documented By: ELLEN Cyanocobalamin (Cyanocobalamin (Vitamin B-12) 1,000 Mcg Tablet) 1,000 mcg PO DAILY [facility] Last Admin: 08/03/25 08:38 Dose: 1,000 mcg Documented By: ELLEN Empagliflozin (Empagliflozin 10 Mg Tablet) 10 mg PO DAILY [facility] Last Admin: 08/03/25 08:38 Dose: 10 mg Documented By: ELLEN Ergocalciferol (Ergocalciferol (Vitamin D2) 1,250 Mcg Capsule) 1,250 mcg PO Fr@0900 [facility] Stop: 09/09/25 09:01 Last Admin: 07/29/25 07:49 Dose: 1,250 mcg Documented By: SASHA Ferrous Sulfate (Ferrous Sulfate 324 Mg Tablet.Dr) 324 mg PO TID [facility] Last Admin: 08/03/25 14:53 Dose: 324 mg Documented By: ELLEN Fluticasone Propionate (Fluticasone Propionate Nasal 16 Gm [place]) 1 spray NOSTRIL-B DAILY [facility] Last Admin: 08/03/25 08:38 Dose: 1 spray Documented By: ELLEN Furosemide (Furosemide 40 Mg Tablet) 40 mg PO DAILY [facility] On Hold: 07/20/25 09:00 Furosemide (Furosemide 20 Mg Tablet) 20 mg PO DAILY [facility]; Protocol Last Admin: 08/03/25 08:42 Dose: 20 mg Documented By: ELLEN Gabapentin (Gabapentin 600 Mg Tablet) 600 mg PO TID [facility] Last Admin: 08/03/25 14:53 Dose: 600 mg Documented By: ELLEN Insulin Glargine (Insulin Glargine,Hum.Rec.Anlog 100 Unit/Ml 10 Ml Vial) 50 unit SUBCUT BEDTIME [facility] Last Admin: 08/02/25 20:41 Dose: 50 unit Documented By: ALEXANDRA Insulin Glargine (Insulin Glargine,Hum.Rec.Anlog 100 Unit/Ml 10 Ml Vial) 10 unit SUBCUT DAILY [facility] Last Admin: 08/03/25 08:35 Dose: 10 unit Documented By: ELLEN Insulin Human Lispro (Insulin Lispro 100 Unit/Ml 3 Ml Vial) 0 unit SUBCUT QIDACHS [facility]; Protocol Last Admin: 08/03/25 12:20 Dose: 6 unit Documented By: ELLEN Lorazepam (Lorazepam 0.5 Mg Tablet) 0.5 mg PO BID PRN PRN Reason: Anxiety Last Admin: 08/01/25 22:14 Dose: 0.5 mg Documented By: JONATHAN Losartan Potassium (Losartan Potassium 25 Mg Tablet) 25 mg PO DAILY [facility] On Hold: 07/17/25 09:33 Last Admin: 07/17/25 08:19 Dose: 25 mg Documented By: RUBEN Magnesium Hydroxide (Milk Of Magnesia 30 Ml Oral.Susp) 30 ml PO DAILY PRN PRN Reason: Constipation Melatonin (Melatonin 3 Mg Tablet) 6 mg PO BEDTIME [facility] Last Admin: 08/02/25 20:43 Dose: 6 mg Documented By: ALEXANDRA Metoprolol Succinate (Metoprolol Succinate Er 50 Mg Tab.Er.24h) 50 mg PO DAILY [facility] Last Admin: 08/03/25 08:42 Dose: 50 mg Documented By: ELLEN Montelukast Sodium (Montelukast Sodium 10 Mg Tablet) 10 mg PO BEDTIME [facility] Last Admin: 08/02/25 20:44 Dose: 10 mg Documented By: ALEXANDRA Pantoprazole Sodium (Pantoprazole Sodium 20 Mg Tablet.Dr) 40 mg PO DAILY [facility] Last Admin: 08/03/25 08:39 Dose: 40 mg Documented By: ELLEN Polyethylene Glycol (Polyethylene Glycol 3350 17 Gm Powd.Pack) 17 gm PO DAILY PRN PRN Reason: Constipation Risperidone (Risperidone 1 Mg Tablet) 1 mg PO BID [facility] Last Admin: 08/03/25 08:38 Dose: 1 mg Documented By: ELLEN Tamsulosin HCl (Tamsulosin Hcl 0.4 Mg Capsule) 0.4 mg PO BEDTIME [facility] Last Admin: 08/02/25 20:44 Dose: 0.4 mg Documented By: ALEXANDRA Thiamine HCl (Thiamine Hcl 100 Mg Tablet) 100 mg PO DAILY [facility] Last Admin: 08/03/25 08:38 Dose: 100 mg Documented By: ELLEN Tiotropium [place] (Tiotropium [place] 2.5 Mcg 1 Puff/2.5 Mcg Mist.Inhal) 2 puff INHALE RDAILY [facility] Last Admin: 08/03/25 08:36 Dose: 2 puff Documented By: ELLEN Tizanidine HCl (Tizanidine Hcl 4 Mg Tablet) 2 mg PO BEDTIME [facility] Last Admin: 08/02/25 20:43 Dose: 2 mg Documented By: ALEXANDRA Tramadol HCl (Tramadol Hcl 50 Mg Tablet) 50 mg PO Q6H PRN PRN Reason: severe left hip pain Last Admin: 08/02/25 21:29 Dose: 50 mg Documented By: JONATHAN Trazodone HCl (Trazodone Hcl 50 Mg Tablet) 50 mg PO BEDTIME [facility]X1 PRN PRN Reason: Insomnia Last Admin: 08/01/25 22:14 Dose: 50 mg Documented By: JONATHAN Labs 07/30/25 08:03 Labs: Laboratory Results - last 24 hr 08/02/25 08/02/25 08/03/25 16:12 19:51 06:49 POC Glucose 236 H 274 H 172 H 08/03/25 12:07 POC Glucose 251 H Assessment and Plan (1) RLL pneumonia: Status: Acute Plan 75-year-old male with past medical history listed below is admitted to inpatient [facility] for continued care after he presented to the hospital with self- harming behaviors and depression. Depression with self harming behavior Per psych team CKD 3B Stable. Avoid nephrotoxins. COPD/Nasal congestion/asthma Updraft nebulizer as needed. Mucinex b.i.d. x7 days Normal saline to bilateral nares Q 1 hour p.r.n. Continue Spiriva Coronary artery disease/history of stroke/CHF/hypertension Continue aspirin, Plavix, atorvastatin and Jardiance. Continue metoprolol 50 mg daily extended release Continue losartan at 25 mg daily, blood pressure is stable Continue Lasix twice daily at reduced dose in pm. Daily weights. Weight stable. 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 Add glargine 10 units in the morning. Recent A1c 9.1 Can consider starting Trulicity outpatient Continue gabapentin 600 t.i.d. Blood sugars elevated due to prednisone- last dose today Chronic kidney disease Stage 3B Stable Avoid nephrotoxins Continue to monitor-nephrology consult pending BPH Continue tamsulosin GERD Continue Protonix Vitamin-D deficiency Continue vitamin-D daily Thank you for allowing me to participate in the care of this patient. Will follow with you, please notify medical provider with any changes in condition or concerns. Quality Stroke Does the patient have a stroke diagnosis?: No VTE Prior VTE?: No VTE Risk Level:: Medical - low VTE Device Contraindication: Treatment Not Indicated VTE Drug Contraindication: N/A - Med Ordered
[2025-08-03 16:17] LABS: Glucose, Whole Blood 259 mg/dL (60-115)
[2025-08-03 20:00] VITALS: BP 132/61; PULSE 81; RESP 16; TEMP 36.7; O2SAT 94
[2025-08-03] MEDS: Insulin Glargine,Hum.rec.anlog 100 UNIT/ML 10 ML VIAL 50 UNIT SUBCUT (20:38)
[2025-08-03] MEDS: guaiFENesin LA 600 MG TAB.ER.12H PO (20:43)
[2025-08-03 21:47] LABS: Glucose, Whole Blood 284 mg/dL (60-115)
[2025-08-04 06:00] VITALS: BMI 39.7
[2025-08-04 06:52] LABS: Glucose, Whole Blood 225 mg/dL (60-115)
[2025-08-04 08:50] VITALS: BP 137/59; PULSE 83; RESP 18; TEMP 36.6; O2SAT 97
[2025-08-04] MEDS: Insulin Glargine,Hum.rec.anlog 100 UNIT/ML 10 ML VIAL 10 UNIT SUBCUT (09:44)
[2025-08-04] MEDS: Tiotropium Bromide 2.5 mcg 1 PUFF/2.5 MCG MIST.INHAL 2 PUFF INHALE (09:44)
[2025-08-04] MEDS: Metoprolol Succinate ER 50 MG TAB.ER.24H PO (09:46)
[2025-08-04] MEDS: guaiFENesin LA 600 MG TAB.ER.12H PO ×2 (09:47→21:26)
[2025-08-04] MEDS: Ferrous Sulfate 324 MG TABLET.DR PO ×3 (09:48→21:27)
[2025-08-04 11:17] LABS: Glucose, Whole Blood 222 mg/dL (60-115)
[2025-08-04 12:04] VITALS: BMI 40.0
[2025-08-04] MEDS: Sodium Chloride 0.65 % Nasal 44 ML SPRBTL 1 SPRAY NOSTRIL-B (15:08)
[2025-08-04 16:21] LABS: Glucose, Whole Blood 288 mg/dL (60-115)
[2025-08-04 20:00] VITALS: BP 126/61; PULSE 72; RESP 18; TEMP 36.3; O2SAT 94
[2025-08-04 21:23] LABS: Glucose, Whole Blood 268 mg/dL (60-115)
[2025-08-04] MEDS: Insulin Glargine,Hum.rec.anlog 100 UNIT/ML 10 ML VIAL 50 UNIT SUBCUT (21:28)
[2025-08-04] MEDS: Albuterol Sulfate 90 MCG 8 GM INHALER 2 PUFF INHALE (22:25)
--- NOTE | 2025-08-04 22:53 | HO.PSYCHPN ---
Subjective Subjective Date of Service: 08/04/25 Reason For Visit: Depression Subjective Notes: Conditional Voluntary Healthcare Proxy: Yes Guardianship: No Medical Problems Affecting Mental Status: No Interim History: Medical record and nursing notes reviewed; case discussed during rounds with team/nursing staff, and met with patient for supportive therapy/psychoeducation, as well as medication management. die storage worker met with patient and this provider explained placement housing situation. Patient asked again what the plan for the future even though after the manager social explained with him a couple of minutes before. Nursing reports that patient experience visual hallucination of flow of plans in his room when he is up this morning. Patient confirmed with this provider that he has been seeing that in his room. However, it does not scare him, he loves this hallucination as they are beautiful layne/plans. Reports his sleep was interrupted by his roommate who turned on the lights slept the door, he asked if he can move to another room. Explained to patient that currently we are hopeful and can not move people around. Denies safety concerns, denies depression or anxiety. Educate patient on keeping the skin on left middle finger clean, covered with bandage to prevent infection, and do not peel off the skin around the wound. Also educate patient on healthy choices, control diet so that it does not affect his physical health. Denies pain, reports bowel movement last night. Denies constipation. Medication Compliance: Yes Side effects from medications: No Attending Groups: Intermittent Review of Systems Acute medical concerns: No Medical Review of Systems: unchanged Review of Systems Review of Systems Const : no body aches, no chills, no excessive sweating and no fatigue Eyes: no blurry vision and no change in vision ENT: no bleeding gums and no change in voice, no dizziness Card: no chest pain, ?no shortness of breath, no orthopnea, no PND Resp: report cough last night with sore throat now, ?no excessive phlegm production, no SOB GI: no abdominal pain and no nausea, no vomiting : no hematuria, no urinary frequency and no difficulty voiding Musc: no abnormal gait, no bone pain Neuro: no ?abnormal movements, no weakness,and +behavioral changes Psych: no behavioral changes and no change in appetite Endo: no change in body appearance, no cold intolerance, Yes all other systems are reviewed and are negative Mental Status Exam Mental Status Exam Narrative: Appearance: Casually dressed, adequate hygiene Behavior: Calm, pleasant and cooperative throughout the interview with the presence of foreign language interpreter. Appropriate eye contact, no signs of psychomotor agitation or psychomotor retardation present Speech: Normal volume and prosody, Thought process: Linear Thought content: WNL. organized Mood: Good Affect: mood-congruent SI:denies HI:denies VH/AH:none Delusions: Report VH of flower plans in his room often in the morning. Insight/judgment: Improved Memory/cog: Alert and oriented. grossly intact to conversational testing. Wallisian moca was 17/30 on 07/27/2025 Diagnostics Vital Signs (24Hr): Vital Signs - 24 hr 08/04/25 08:50 08/04/25 20:00 Temperature 97.8 F 97.3 F Pulse Rate 83 72 Respiratory Rate 18 18 Blood Pressure 137/59 L 126/61 Pulse Oximetry 97 94 Oxygen Delivery Method Room Air Room Air BMI result Body Mass Index 40.0 Labs 07/30/25 08:03 Labs: Laboratory Results - last 48 hr 08/03/25 08/03/25 08/03/25 06:49 12:07 16:12 POC Glucose 172 H 251 H 259 H 08/03/25 08/04/25 08/04/25 20:31 06:48 11:07 POC Glucose 284 H 225 H 222 H 08/04/25 08/04/25 16:17 21:19 POC Glucose 288 H 268 H Imaging Radiology Impressions: ITS Impressions Chest X-Ray 07/15/25 15:24 IMPRESSION: Clear lungs. Electronically signed by: Brice Bunch MD 07/15/2025 03:40 PM EDT RP Hip/Pelvis X-Ray 07/19/25 11:20 IMPRESSION: Patchy increased sclerosis which may be due to renal osteodystrophy. Other etiologies including metastatic disease are not excluded. Clinical correlation is recommended. Electronically signed by: Brice Bunch MD 07/19/2025 11:49 AM EDT RP Lumbar Spine X-Ray 07/19/25 11:20 IMPRESSION: Mild degenerative disc disease. Electronically signed by: Brice Bunch MD 07/19/2025 11:50 AM EDT RP Chest X-Ray 07/19/25 11:33 IMPRESSION: Right lower lobe pneumonia. Follow-up is recommended to document resolution. Electronically signed by: Brice Bunch MD 07/19/2025 11:44 AM EDT RP Abdomen/Pelvis CT 07/21/25 15:26 IMPRESSION: Lobulated fat-containing umbilical hernia. Atelectasis versus airspace disease, lung bases. Abundant stool without intestinal obstruction pattern. Simple cyst, left kidney. Degenerative changes both hips with questionable trochanter bursitis. Multilevel thoracolumbar spondylosis resulting in central spinal canal stenosis. Please for to the CT lumbar spine. Fleischner guidelines were followed. 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 Mild narrowing of neural foramina bilaterally at along the lumbar spinal canal. The findings are slightly worse on the right at the T12-L1 disc level there is a right facet joint hypertrophy extending into the neural foramina and a small bony spur extending into right lateral recess at the L2-3 disc level. No abnormal enhancement seen within the lower dorsal or lumbar spinal canal or the region of conus medullaris. If patient has persistent radiculopathy and numbness and tingling in the legs further evaluation with neurology may be helpful. Electronically signed by: Gabo Bush MD 07/22/2025 07:26 AM EDT RP Medications Medications Current Medications Acetaminophen (Acetaminophen 325 Mg Tablet) 650 mg PO Q6H PRN PRN Reason: Headache/Pain, Scale 1-10 Last Admin: 08/04/25 11:34 Dose: 650 mg Al Hydroxide/Mg Hydroxide (Magnesium Hydrox/Alum Hydrox 30 Ml Oral.Susp) 30 ml PO Q6H PRN PRN Reason: Heartburn/Nausea Last Admin: 07/25/25 09:57 Dose: 30 ml Albuterol Sulfate (Albuterol Sulfate 90 Mcg 8 Gm Inhaler) 2 puff INHALE RQ4H PRN PRN Reason: SOB/Wheezing Last Admin: 08/04/25 22:25 Dose: 2 puff Aspirin (Aspirin 81 Mg Tab.Chew) 81 mg PO DAILY MARCIA Last Admin: 08/04/25 09:45 Dose: 81 mg Atorvastatin Calcium (Atorvastatin Calcium 40 Mg Tablet) 40 mg PO BEDTIME MARCIA Last Admin: 08/04/25 21:27 Dose: 40 mg Benzocaine (Throat Lozenge, Medicated Lozenge) 1 lozenge MUCOUS MEM Q2H PRN PRN Reason: Sore Throat Last Admin: 07/30/25 20:15 Dose: 1 lozenge Clopidogrel Bisulfate (Clopidogrel Bisulfate 75 Mg Tablet) 75 mg PO DAILY [facility] Last Admin: 08/04/25 09:46 Dose: 75 mg Cyanocobalamin (Cyanocobalamin (Vitamin B-12) 1,000 Mcg Tablet) 1,000 mcg PO DAILY [facility] Last Admin: 08/04/25 09:47 Dose: 1,000 mcg Empagliflozin (Empagliflozin 10 Mg Tablet) 10 mg PO DAILY [facility] Last Admin: 08/04/25 09:48 Dose: 10 mg Ergocalciferol (Ergocalciferol (Vitamin D2) 1,250 Mcg Capsule) 1,250 mcg PO Fr@0900 [facility] Stop: 09/09/25 09:01 Last Admin: 07/29/25 07:49 Dose: 1,250 mcg Ferrous Sulfate (Ferrous Sulfate 324 Mg Tablet.Dr) 324 mg PO TID [facility] Last Admin: 08/04/25 21:27 Dose: 324 mg Fluticasone Propionate (Fluticasone Propionate Nasal 16 Gm Section) 1 spray NOSTRIL-B DAILY [facility] Last Admin: 08/04/25 09:44 Dose: 1 spray Furosemide (Furosemide 40 Mg Tablet) 40 mg PO DAILY [facility] On Hold: 07/20/25 09:00 Furosemide (Furosemide 20 Mg Tablet) 20 mg PO DAILY [facility]; Protocol Last Admin: 08/04/25 09:47 Dose: 20 mg Gabapentin (Gabapentin 600 Mg Tablet) 600 mg PO TID [facility] Last Admin: 08/04/25 21:27 Dose: 600 mg Guaifenesin (Guaifenesin La 600 Mg Tab.Er.12h) 600 mg PO BID [facility] Stop: 08/10/25 20:59 Last Admin: 08/04/25 21:26 Dose: 600 mg Insulin Glargine (Insulin Glargine,Hum.Rec.Anlog 100 Unit/Ml 10 Ml Vial) 50 unit SUBCUT BEDTIME [facility] Last Admin: 08/04/25 21:28 Dose: 50 unit Insulin Glargine (Insulin Glargine,Hum.Rec.Anlog 100 Unit/Ml 10 Ml Vial) 10 unit SUBCUT DAILY [facility] Last Admin: 08/04/25 09:44 Dose: 10 unit Insulin Human Lispro (Insulin Lispro 100 Unit/Ml 3 Ml Vial) 0 unit SUBCUT QIDACHS [facility]; Protocol Last Admin: 08/04/25 21:28 Dose: 6 unit Lorazepam (Lorazepam 0.5 Mg Tablet) 0.5 mg PO BID PRN PRN Reason: Anxiety Last Admin: 08/04/25 02:05 Dose: 0.5 mg Losartan Potassium (Losartan Potassium 25 Mg Tablet) 25 mg PO DAILY [facility] On Hold: 07/17/25 09:33 Last Admin: 07/17/25 08:19 Dose: 25 mg Magnesium Hydroxide (Milk Of Magnesia 30 Ml Oral.Susp) 30 ml PO DAILY PRN PRN Reason: Constipation Melatonin (Melatonin 3 Mg Tablet) 6 mg PO BEDTIME [facility] Last Admin: 08/04/25 21:27 Dose: 6 mg Metoprolol Succinate (Metoprolol Succinate Er 50 Mg Tab.Er.24h) 50 mg PO DAILY [facility] Last Admin: 08/04/25 09:46 Dose: 50 mg Montelukast Sodium (Montelukast Sodium 10 Mg Tablet) 10 mg PO BEDTIME [facility] Last Admin: 08/04/25 21:27 Dose: 10 mg Pantoprazole Sodium (Pantoprazole Sodium 20 Mg Tablet.Dr) 40 mg PO DAILY [facility] Last Admin: 08/04/25 09:45 Dose: 40 mg Polyethylene Glycol (Polyethylene Glycol 3350 17 Gm Powd.Pack) 17 gm PO DAILY PRN PRN Reason: Constipation Risperidone (Risperidone 1 Mg Tablet) 1 mg PO BID [facility] Last Admin: 08/04/25 21:27 Dose: 1 mg Sodium Chloride (Sodium Chloride 0.65 % Nasal 44 Ml Sprbtl) 1 spray NOSTRIL-B Q1H PRN PRN Reason: Nasal congestion Last Admin: 08/04/25 15:08 Dose: 1 spray Tamsulosin HCl (Tamsulosin Hcl 0.4 Mg Capsule) 0.4 mg PO BEDTIME [facility] Last Admin: 08/04/25 21:27 Dose: 0.4 mg Thiamine HCl (Thiamine Hcl 100 Mg Tablet) 100 mg PO DAILY [facility] Last Admin: 08/04/25 09:46 Dose: 100 mg Tiotropium Greeley (Tiotropium Greeley 2.5 Mcg 1 Puff/2.5 Mcg Mist.Inhal) 2 puff INHALE RDAILY [facility] Last Admin: 08/04/25 09:44 Dose: 2 puff Tizanidine HCl (Tizanidine Hcl 4 Mg Tablet) 2 mg PO BEDTIME [facility] Last Admin: 08/04/25 21:26 Dose: 2 mg Tramadol HCl (Tramadol Hcl 50 Mg Tablet) 50 mg PO Q6H PRN PRN Reason: severe left hip pain Last Admin: 08/02/25 21:29 Dose: 50 mg Trazodone HCl (Trazodone Hcl 50 Mg Tablet) 50 mg PO BEDTIME MRX1 PRN PRN Reason: Insomnia Last Admin: 08/04/25 02:05 Dose: 50 mg Allergies Allergies Allergy/AdvReac Type Severity Reaction Status Date / Time Penicillins (PCN) AdvReac Unknown Verified 07/14/25 14:00 Assessment & Plan Assessment & Plan (1) RLL pneumonia: Status: Acute Code(s): J18.9 - Pneumonia, unspecified organism (2) MDD (major depressive disorder), recurrent, severe, with psychosis: Status: Acute Code(s): F33.3 - Major depressive disorder, recurrent, severe with psychotic symptoms (3) Acute kidney injury superimposed on stage 3b chronic kidney disease: Status: Acute Code(s): N17.9 - Acute kidney failure, unspecified; N18.32 - Chronic kidney disease, stage 3b Plan Mr. Eden is a 75 year-old male who was initially brought to [facility] via EMS on [address] by police after [place] was seen in the park inflicting laceration on left hand. No stitches required. He continued to self harm while in the ED. He reports he is hearing voices (reports male voice saying I want to see blood repeatedly), which then led to him acting on the voices thinking it may quiet them down. Although he endorses depressed mood in context of not having stable place to live and passive SI, he reports he does not want to but can't help if voices are ongoing. He reports he is not hearing voices now. We discussed risks, benefits and alternative treatment options. He agreed to start risperidone 1mg po BID. Hospital course: 10/14 continue tx. consult to hospitalist- left hip pain. no fall or injury. Updraft nebulizer as needed Patient with a history of asthma, not on any maintenance meds. Will start Spiriva 07/20: Patient found sitting on his bed with his feet on the floor and arms around his walker. He is irritable and tearful. He reports severe pain to his left hip. He rates his pain as 7/10 on the pain scale. Tramadol was increased to 50 mg Q6H as needed this morning. Patient repeatedly refused pain medication tramadol that his nurse offered at bedside. He eventually took the medication after intervention/education about his pain and treatment modalities by this provider. He denies anxiety or depression. He denies SI/HI/AH/VH. Continue current treatment regimen. PT consult made. 07/21: Reports 4/10 lower back and left hip pain. Cheerful and socializing with peers. Prednisone 40 mg daily x5 days ordered for pain. Continue current treatment regimen. [place] Hospitalist notes she would order more imaging for musculoskeletal pain. 07/22/25: Meet with patient in the presence of foreign language interpreter in sensory room. Patient reports bearable pain on left buttock area, rated pain 2/20. Report he has some happy tears today after talking to his granddaughter who is 5 years as she prays for him to be better to be home soon with family. Report mood and sleep/appetite are good. Denies anxiety/depression or safety concern. He says he would rather stay in [place] instead of returning to [place]. Report that he can stay with her granddaughter who is 48 y.o in [place]. Explained to patient that he may not get good benefits for health insurance as he has not been here in [place] in a good period of time. Report he has been here more than 3 months. Patient is aware of potential family meeting next week on Friday at 1300 virtually and discharge to follow after. VSs stable, no SOB, O2Sat this morning 92% but improved later on of the day. Ambulate with wheelchair. Visbile, sociall appropriately with peers and staff and attended groups. 07/23/25: Patient slept for 5 hours, medication compliant, no side effects. He is reasonable, social and appropriate. Reports singing he people's vehicles saw about the pig/pork meat. Denies safety concerns. He was not happy regarding the roommate who was snoring loudly, and was not quiet at night which interfere with his sleep. Encourage patient to to use ear plugs she sees if they are helpful. Blood pressure is fluctuated. We will continue to monitor. Ambulating with a walker. Pain is under control. 07/24/25: Patient slept through the night, was compliant with medications, but not compliant with diabetic protocol. Patient has not care for his diet, blood sugar continued to be high, received coverage. Nursing reported the patient was dancing yesterday but has a tantrum moment over food for dinner yesterday, he threw the walker away which was taken away from the patient for safety issues. Patient requests the walker, explained to patient reason why he can not get walker. He walked with normal steady gait. Reports the pain on the hip is improving. Denies safety concerns. Continued to confirm that he wants to stay in [place]. Reported that his granddaughter will come in in person to have a meeting this week. Denies depression or anxiety, sleep is improving. Changing from 5 to 15 minutes safety checks 07/25/25:Patient slept well, compliant with medication. Denies side effects. POC remains high, asymptomatic, received coverage per Protocol with extra 4 unit of Insulin prior dinner. Denies pain, walking with steady gait. Denies anxiety/depression. Denies SI/SIB/HI/AVH. Patient reports that he has been in this country for 10 years. Confirm he wants to stay in [place]. Do not want to return to [place]. Per , meeting with family went well- virtual. Patient will return to [place]. will work on aftercare plan and FLU appointment. 07/26/25: In person [employer] utilized. Reports improve in sleep, , medication compliant, denies safety concerns, denies depression and anxiety. Denies pain. Patient reported that he did not attend to family meeting yesterday. Educate patient on healthy food/fluid choices as his blood sugar was elevated much more higher than normal. He spent sometime napping in his room. No behavior issues. Reports sore throat and headache yesterday. Denies headache this morning but reported that he was coughing at night and has sore throat now. 07/27: Nursing also reports that the patient's sugar significantly increased while on prednisone, but has been trending down. Blood glucose in the past 2 days between 413 and 291. Continue current treatment regimen. 07/28: He reports ?mild? sore throat which started this morning. No associated symptoms. Continue current treatment regimen. 07/29/25: In-person motor vehicle parts interpreter presence during want to on assessment. Patient reports slept okay last night, appetite good. Denies side effects from medications. Denies anxiety or depression. Sound having sore throat. Reported that fell last night and he has his head badly to the wall. Per nursing, patient lowered himself to the floor. He was irritable agitated at times yesterday. Refused MiraLax this morning. Reports head take 2/10 where he hit the wall yesterday. Patient having questioned regarding when he is discharged. Informed the patient that manager social is working on sending the referral out. Pending results. 07/30: Chest XR pending. Continue current medications. 07/31: continue current management and treatment plan. 08/01/25: Interpretive, manager social, and this provider met with patient in dining area. Patient reports slept well, feeling rested, no appetite issues. Denies depression or anxiety. No chest pain. No pain anywhere else except for sore throat which he said his feels better today. Review with patient regarding chest x-ray and EKG which was done over the weekends. Educate patient on healthy food and fluid choices. Patient observed and overheard snoring loudly at dinning table before lunch time. die storage worker continue to send out referral to correction facility, especially in Health system. Patient has been declined from other places so far. Patient also seen hospitalist Friday night regarding elevated of BUN/creatinine which consistently with see CKD, encourage fluid intake 08/02/25: Patient is visible in common areas, intermittently attended groups. Compliant with meds. NO side effects. Denies chest pain/pain/or sore throat. Slept for 7 hours, continue to reinforce on health choices of food and fluid as Blood sugar mostly not controlled as patient SW will set up family meeting next week to review with family of discharge plan/placement expectation. Patient was denied from 4 places out of 5 referalls sent out yesterday. CHange Miralax to PRN as patient has been refused it. 08/03/25: Patent report sleep well last night. No change in appetite. Denies depression and anxiety,and safety concerns. He appears tired. Patient reports cough at night and chest pain earlier today- not at the assessment. He sound congestion with sore throat. Nursing later on report patient cough up blood. Hospitalist seen patient, some blood when blowing his nose. Lungs are clear. SW working on aftercare appointments and family collateral. New order for Nasal spray PRN and Mucinex 600mg BID x7days. 08/04/25: die storage worker met with patient and this provider explained placement housing situation. Patient asked again what the plan for the future even though after the manager social explained with him a couple of minutes before. Nursing reports that patient experience visual hallucination of flow of plans in his room when he is up this morning. Patient confirmed with this provider that he has been seeing that in his room. However, it does not scare him, he loves this hallucination as they are beautiful layen/plans. Reports his sleep was interrupted by his roommate who turned on the lights slept the door, he asked if he can move to another room. Explained to patient that currently we are hopeful and can not move people around. Denies safety concerns, denies depression or anxiety. Educate patient on keeping the skin on left middle finger clean, covered with bandage to prevent infection, and do not peel off the skin around the wound. Also educate patient on healthy choices, control diet so that it does not affect his physical health. Denies pain, reports bowel movement last night. Denies constipation. die storage worker to reach out to family regarding discharge plan. He may not discharge this weekend but early next week. Plan: Bilateral hip pain-resolved Patient does not have any radiculopathy, numbness or tingling in his legs. He is ambulating at baseline without any antalgic gait, not using a walker. Denying any hip pain. CKD 3B Stable. Avoid nephrotoxins. Right lower lobe pneumonia Noted on chest x-ray Continue Levaquin 750 daily for 5 days due to PCN allergy Updraft nebulizer as needed Patient with a history of asthma, not on any maintenance meds. Continue Spiriva Improving Laceration to dorsum of left hand and fingers/scratch abrasions to calf. Continue local wound care Wound care following. No evidence of infection Coronary artery disease/history of stroke/CHF/hypertension Continue aspirin, Plavix, atorvastatin and Jardiance. Continue metoprolol 50 mg daily extended release Continue losartan at 25 mg daily, blood pressure is stable Continue Lasix twice daily at reduced dose in pm. Daily weights. Weight stable. 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 Add glargine 10 units in the morning. Recent A1c 9.1 Can consider starting Trulicity outpatient Continue gabapentin 600 t.i.d. Blood sugars elevated due to prednisone- last dose today Chronic kidney disease Stage 3 B Baseline 1.2 Avoid nephrotoxins Continue to monitor-nephrology consult pending BPH Continue tamsulosin GERD Continue Protonix Vitamin-D deficiency Continue vitamin-D daily Patient educated on: medication risk/benefits and therapeutic strategies Informed Consent: understands and further education needed Reason for continued inpatient stay Substantial Risk for: med/psych decompensation Time Spent With Patient Time: Total time managing care of this patient today ____ minutes.
[2025-08-05] MEDS: Sodium Chloride 0.65 % Nasal 44 ML SPRBTL 1 SPRAY NOSTRIL-B (03:14)
[2025-08-05] MEDS: Albuterol Sulfate 90 MCG 8 GM INHALER 2 PUFF INHALE (03:16)
[2025-08-05 05:52] VITALS: BMI 39.9
[2025-08-05 06:48] LABS: Glucose, Whole Blood 241 mg/dL (60-115)
[2025-08-05 07:55] VITALS: BP 168/85; PULSE 80; RESP 18; TEMP 36.6; O2SAT 94
[2025-08-05] MEDS: Tiotropium Bromide 2.5 mcg 1 PUFF/2.5 MCG MIST.INHAL 2 PUFF INHALE (08:01)
[2025-08-05] MEDS: guaiFENesin LA 600 MG TAB.ER.12H PO ×2 (08:02→20:24)
[2025-08-05] MEDS: Metoprolol Succinate ER 50 MG TAB.ER.24H PO (08:02)
[2025-08-05] MEDS: Ferrous Sulfate 324 MG TABLET.DR PO ×3 (08:02→20:24)
[2025-08-05] MEDS: Insulin Glargine,Hum.rec.anlog 100 UNIT/ML 10 ML VIAL 10 UNIT SUBCUT (08:03)
--- NOTE | 2025-08-05 10:26 | HO.PSYCHPN ---
Subjective Subjective Date of Service: 08/05/25 Reason For Visit: Depression Subjective Notes: Conditional Voluntary Healthcare Proxy: Yes Guardianship: No Medical Problems Affecting Mental Status: No Interim History: Medical record and nursing notes reviewed; case discussed during rounds with team/nursing staff, and met with patient for supportive therapy/psychoeducation, as well as medication management. Patient visible in common areas, report slept well last night. Denies chest pain, continue to improve in cough and congestion. He denies seeing flower plants in his room this morning as VH as he reported yesterday that he has that experience mostly daily. Continue to educate patient on health food and fluid choices and weight control which have positive effects from for his health if they are under control. Education seems to have some effects as his Blood sugar was lower than and improving than it used to be He denies safety concerns now. Have questions regarding when he is discharged which patient was explained to patient by professor of social work ( see SW note for more details) regarding discharge after care plan. Will continue to monitor for mental status change. Per nursing, patient slept well, and compliant with medication. Ambulate independently. Intermittently attended groups, less sedated or sleepy during daytime compare to 1-2 days ago. has been contacted family to collaborate to make sure patient has a safe discharge plan. Medication Compliance: Yes Side effects from medications: No Attending Groups: Intermittent Review of Systems Acute medical concerns: No Medical Review of Systems: unchanged Review of Systems Review of Systems Const : no body aches, no chills, no excessive sweating and no fatigue Eyes: no blurry vision and no change in vision ENT: no bleeding gums and no change in voice, no dizziness Card: no chest pain, ?no shortness of breath, no orthopnea, no PND Resp: report cough last night with sore throat now, ?no excessive phlegm production, no SOB GI: no abdominal pain and no nausea, no vomiting : no hematuria, no urinary frequency and no difficulty voiding Musc: no abnormal gait, no bone pain Neuro: no ?abnormal movements, no weakness,and +behavioral changes Psych: no behavioral changes and no change in appetite Endo: no change in body appearance, no cold intolerance, Yes all other systems are reviewed and are negative Mental Status Exam Mental Status Exam Narrative: Appearance: Casually dressed, adequate hygiene Behavior: Calm, pleasant and cooperative throughout the interview. Appropriate eye contact, no signs of psychomotor agitation or psychomotor retardation present Speech: Normal volume and prosody, Thought process: Linear Thought content: WNL. organized Mood: Good Affect: mood-congruent SI:denies HI:denies VH/AH:none Delusions: Report VH of flower plans in his room often in the morning. However, denies it this morning. Insight/judgment: Improved Memory/cog: Alert and oriented. grossly intact to conversational testing. [place] moca was 17/30 on 07/27/2025 Diagnostics Vital Signs (24Hr): Vital Signs - 24 hr 08/04/25 20:00 08/05/25 07:55 Temperature 97.3 F 97.8 F Pulse Rate 72 80 Respiratory Rate 18 18 Blood Pressure 126/61 168/85 H Pulse Oximetry 94 94 Oxygen Delivery Method Room Air Room Air BMI result Body Mass Index 39.9 Labs 07/30/25 08:03 Labs: Laboratory Results - last 48 hr 08/03/25 08/03/25 08/03/25 12:07 16:12 20:31 POC Glucose 251 H 259 H 284 H 08/04/25 08/04/25 08/04/25 06:48 11:07 16:17 POC Glucose 225 H 222 H 288 H 08/04/25 08/05/25 21:19 06:42 POC Glucose 268 H 241 H Imaging Radiology Impressions: ITS Impressions Chest X-Ray 07/15/25 15:24 IMPRESSION: Clear lungs. Electronically signed by: Brice Bunch MD 07/15/2025 03:40 PM EDT RP Hip/Pelvis X-Ray 07/19/25 11:20 IMPRESSION: Patchy increased sclerosis which may be due to renal osteodystrophy. Other etiologies including metastatic disease are not excluded. Clinical correlation is recommended. Electronically signed by: Brice Bunch MD 07/19/2025 11:49 AM EDT RP Lumbar Spine X-Ray 07/19/25 11:20 IMPRESSION: Mild degenerative disc disease. Electronically signed by: Brice Bunch MD 07/19/2025 11:50 AM EDT RP Chest X-Ray 07/19/25 11:33 IMPRESSION: Right lower lobe pneumonia. Follow-up is recommended to document resolution. Electronically signed by: Brice Bunch MD 07/19/2025 11:44 AM EDT RP Abdomen/Pelvis CT 07/21/25 15:26 IMPRESSION: Lobulated fat-containing umbilical hernia. Atelectasis versus airspace disease, lung bases. Abundant stool without intestinal obstruction pattern. Simple cyst, left kidney. Degenerative changes both hips with questionable trochanter bursitis. Multilevel thoracolumbar spondylosis resulting in central spinal canal stenosis. Please for to the CT lumbar spine. Fleischner guidelines were followed. 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 Mild narrowing of neural foramina bilaterally at along the lumbar spinal canal. The findings are slightly worse on the right at the T12-L1 disc level there is a right facet joint hypertrophy extending into the neural foramina and a small bony spur extending into right lateral recess at the L2-3 disc level. No abnormal enhancement seen within the lower dorsal or lumbar spinal canal or the region of conus medullaris. If patient has persistent radiculopathy and numbness and tingling in the legs further evaluation with neurology may be helpful. Electronically signed by: Gabo Bush MD 07/22/2025 07:26 AM EDT RP Medications Medications Current Medications Acetaminophen (Acetaminophen 325 Mg Tablet) 650 mg PO Q6H PRN PRN Reason: Headache/Pain, Scale 1-10 Last Admin: 08/04/25 11:34 Dose: 650 mg Al Hydroxide/Mg Hydroxide (Magnesium Hydrox/Alum Hydrox 30 Ml Oral.Susp) 30 ml PO Q6H PRN PRN Reason: Heartburn/Nausea Last Admin: 07/25/25 09:57 Dose: 30 ml Albuterol Sulfate (Albuterol Sulfate 90 Mcg 8 Gm Inhaler) 2 puff INHALE RQ4H PRN PRN Reason: SOB/Wheezing Last Admin: 08/05/25 03:16 Dose: 2 puff Aspirin (Aspirin 81 Mg Tab.Chew) 81 mg PO DAILY MARCIA Last Admin: 08/05/25 08:02 Dose: 81 mg Atorvastatin Calcium (Atorvastatin Calcium 40 Mg Tablet) 40 mg PO BEDTIME [facility] Last Admin: 08/04/25 21:27 Dose: 40 mg Benzocaine (Throat Lozenge, Medicated Lozenge) 1 lozenge MUCOUS MEM Q2H PRN PRN Reason: Sore Throat Last Admin: 07/30/25 20:15 Dose: 1 lozenge Clopidogrel Bisulfate (Clopidogrel Bisulfate 75 Mg Tablet) 75 mg PO DAILY [facility] Last Admin: 08/05/25 08:01 Dose: 75 mg Cyanocobalamin (Cyanocobalamin (Vitamin B-12) 1,000 Mcg Tablet) 1,000 mcg PO DAILY [facility] Last Admin: 08/05/25 08:02 Dose: 1,000 mcg Empagliflozin (Empagliflozin 10 Mg Tablet) 10 mg PO DAILY [facility] Last Admin: 08/05/25 08:01 Dose: 10 mg Ergocalciferol (Ergocalciferol (Vitamin D2) 1,250 Mcg Capsule) 1,250 mcg PO Fr@0900 [facility] Stop: 09/09/25 09:01 Last Admin: 08/05/25 08:02 Dose: 1,250 mcg Ferrous Sulfate (Ferrous Sulfate 324 Mg Tablet.Dr) 324 mg PO TID [facility] Last Admin: 08/05/25 08:02 Dose: 324 mg Fluticasone Propionate (Fluticasone Propionate Nasal 16 Gm [place]) 1 spray NOSTRIL-B DAILY [facility] Last Admin: 08/05/25 08:01 Dose: 1 spray Furosemide (Furosemide 40 Mg Tablet) 40 mg PO DAILY [facility] On Hold: 07/20/25 09:00 Furosemide (Furosemide 20 Mg Tablet) 20 mg PO DAILY [facility]; Protocol Last Admin: 08/05/25 08:02 Dose: 20 mg Gabapentin (Gabapentin 600 Mg Tablet) 600 mg PO TID [facility] Last Admin: 08/05/25 08:01 Dose: 600 mg Guaifenesin (Guaifenesin La 600 Mg Tab.Er.12h) 600 mg PO BID [facility] Stop: 08/10/25 20:59 Last Admin: 08/05/25 08:02 Dose: 600 mg Insulin Glargine (Insulin Glargine,Hum.Rec.Anlog 100 Unit/Ml 10 Ml Vial) 50 unit SUBCUT BEDTIME [facility] Last Admin: 08/04/25 21:28 Dose: 50 unit Insulin Glargine (Insulin Glargine,Hum.Rec.Anlog 100 Unit/Ml 10 Ml Vial) 10 unit SUBCUT DAILY [facility] Last Admin: 08/05/25 08:03 Dose: 10 unit Insulin Human Lispro (Insulin Lispro 100 Unit/Ml 3 Ml Vial) 0 unit SUBCUT QIDACHS [facility]; Protocol Last Admin: 08/05/25 07:54 Dose: 4 unit Lorazepam (Lorazepam 0.5 Mg Tablet) 0.5 mg PO BID PRN PRN Reason: Anxiety Last Admin: 08/05/25 03:14 Dose: 0.5 mg Losartan Potassium (Losartan Potassium 25 Mg Tablet) 25 mg PO DAILY [facility] On Hold: 07/17/25 09:33 Last Admin: 07/17/25 08:19 Dose: 25 mg Magnesium Hydroxide (Milk Of Magnesia 30 Ml Oral.Susp) 30 ml PO DAILY PRN PRN Reason: Constipation Melatonin (Melatonin 3 Mg Tablet) 6 mg PO BEDTIME [facility] Last Admin: 08/04/25 21:27 Dose: 6 mg Metoprolol Succinate (Metoprolol Succinate Er 50 Mg Tab.Er.24h) 50 mg PO DAILY [facility] Last Admin: 08/05/25 08:02 Dose: 50 mg Montelukast Sodium (Montelukast Sodium 10 Mg Tablet) 10 mg PO BEDTIME [facility] Last Admin: 08/04/25 21:27 Dose: 10 mg Pantoprazole Sodium (Pantoprazole Sodium 20 Mg Tablet.Dr) 40 mg PO DAILY [facility] Last Admin: 08/05/25 08:02 Dose: 40 mg Polyethylene Glycol (Polyethylene Glycol 3350 17 Gm Powd.Pack) 17 gm PO DAILY PRN PRN Reason: Constipation Risperidone (Risperidone 1 Mg Tablet) 1 mg PO BID [facility] Last Admin: 08/05/25 08:01 Dose: 1 mg Sodium Chloride (Sodium Chloride 0.65 % Nasal 44 Ml Sprbtl) 1 spray NOSTRIL-B Q1H PRN PRN Reason: Nasal congestion Last Admin: 08/05/25 03:14 Dose: 1 spray Tamsulosin HCl (Tamsulosin Hcl 0.4 Mg Capsule) 0.4 mg PO BEDTIME [facility] Last Admin: 08/04/25 21:27 Dose: 0.4 mg Thiamine HCl (Thiamine Hcl 100 Mg Tablet) 100 mg PO DAILY [facility] Last Admin: 08/05/25 08:02 Dose: 100 mg Tiotropium Daggett (Tiotropium [place] 2.5 Mcg 1 Puff/2.5 Mcg Mist.Inhal) 2 puff INHALE RDAILY [facility] Last Admin: 08/05/25 08:01 Dose: 2 puff Tizanidine HCl (Tizanidine Hcl 4 Mg Tablet) 2 mg PO BEDTIME [facility] Last Admin: 08/04/25 21:26 Dose: 2 mg Tramadol HCl (Tramadol Hcl 50 Mg Tablet) 50 mg PO Q6H PRN PRN Reason: severe left hip pain Last Admin: 08/05/25 02:11 Dose: 50 mg Trazodone HCl (Trazodone Hcl 50 Mg Tablet) 50 mg PO BEDTIME MRX1 PRN PRN Reason: Insomnia Last Admin: 08/05/25 02:12 Dose: 50 mg Allergies Allergies Allergy/AdvReac Type Severity Reaction Status Date / Time Penicillins (PCN) AdvReac Unknown Verified 07/14/25 14:00 Assessment & Plan Assessment & Plan (1) RLL pneumonia: Status: Acute Code(s): J18.9 - Pneumonia, unspecified organism (2) MDD (major depressive disorder), recurrent, severe, with psychosis: Status: Acute Code(s): F33.3 - Major depressive disorder, recurrent, severe with psychotic symptoms (3) Acute kidney injury superimposed on stage 3b chronic kidney disease: Status: Acute Code(s): N17.9 - Acute kidney failure, unspecified; N18.32 - Chronic kidney disease, stage 3b Plan Mr. Eden is a 75 year-old male who was initially brought to [facility] via EMS on [address] by police after he was seen in the park inflicting laceration on left hand. No stitches required. He continued to self harm while in the ED. He reports he is hearing voices (reports male voice saying I want to see blood repeatedly), which then led to him acting on the voices thinking it may quiet them down. Although he endorses depressed mood in context of not having stable place to live and passive SI, he reports he does not want to but can't help if voices are ongoing. He reports he is not hearing voices now. We discussed risks, benefits and alternative treatment options. He agreed to start risperidone 1mg po BID. Hospital course: 07/19 continue tx. consult to hospitalist- left hip pain. no fall or injury. Updraft nebulizer as needed Patient with a history of asthma, not on any maintenance meds. Will start Spiriva 07/20: Patient found sitting on his bed with his feet on the floor and arms around his walker. He is irritable and tearful. He reports severe pain to his left hip. He rates his pain as 7/10 on the pain scale. Tramadol was increased to 50 mg Q6H as needed this morning. Patient repeatedly refused pain medication tramadol that his nurse offered at bedside. He eventually took the medication after intervention/education about his pain and treatment modalities by this provider. He denies anxiety or depression. He denies SI/HI/AH/VH. Continue current treatment regimen. PT consult made. 07/21: Reports 4/10 lower back and left hip pain. Cheerful and socializing with peers. Prednisone 40 mg daily x5 days ordered for pain. Continue current treatment regimen. [place] Hospitalist notes she would order more imaging for musculoskeletal pain. 07/22/25: Meet with patient in the presence of interpreter and translator in sensory room. Patient reports bearable pain on left buttock area, rated pain 2/20. Report he has some happy tears today after talking to his granddaughter who is 5 years as she prays for him to be better to be home soon with family. Report mood and sleep/appetite are good. Denies anxiety/depression or safety concern. He says he would rather stay in [place] instead of returning to [place]. Report that he can stay with her granddaughter who is 48 y.o in [place]. Explained to patient that he may not get good benefits for health insurance as he has not been here in [place] in a good period of time. Report he has been here more than 3 months. Patient is aware of potential family meeting next week on Friday at 1300 virtually and discharge to follow after. VSs stable, no SOB, O2Sat this morning 92% but improved later on of the day. Ambulate with wheelchair. Visbile, sociall appropriately with peers and staff and attended groups. 07/23/25: Patient slept for 5 hours, medication compliant, no side effects. He is reasonable, social and appropriate. Reports singing he people's vehicles saw about the pig/pork meat. Denies safety concerns. He was not happy regarding the roommate who was snoring loudly, and was not quiet at night which interfere with his sleep. Encourage patient to to use ear plugs she sees if they are helpful. Blood pressure is fluctuated. We will continue to monitor. Ambulating with a walker. Pain is under control. 07/24/25: Patient slept through the night, was compliant with medications, but not compliant with diabetic protocol. Patient has not care for his diet, blood sugar continued to be high, received coverage. Nursing reported the patient was dancing yesterday but has a tantrum moment over food for dinner yesterday, he threw the walker away which was taken away from the patient for safety issues. Patient requests the walker, explained to patient reason why he can not get walker. He walked with normal steady gait. Reports the pain on the hip is improving. Denies safety concerns. Continued to confirm that he wants to stay in [place]. Reported that his granddaughter will come in in person to have a meeting this week. Denies depression or anxiety, sleep is improving. Changing from 5 to 15 minutes safety checks 07/25/25:Patient slept well, compliant with medication. Denies side effects. POC remains high, asymptomatic, received coverage per Protocol with extra 4 unit of Insulin prior dinner. Denies pain, walking with steady gait. Denies anxiety/depression. Denies SI/SIB/HI/AVH. Patient reports that he has been in this country for 10 years. Confirm he wants to stay in [place]. Do not want to return to [place]. Per , meeting with family went well- virtual. [place]. will work on aftercare plan and FLU appointment. 07/26/25: In person Process Machine Operator utilized. Reports improve in sleep, , medication compliant, denies safety concerns, denies depression and anxiety. Denies pain. Patient reported that he did not attend to family meeting yesterday. Educate patient on healthy food/fluid choices as his blood sugar was elevated much more higher than normal. He spent sometime napping in his room. No behavior issues. Reports sore throat and headache yesterday. Denies headache this morning but reported that he was coughing at night and has sore throat now. 07/27: Nursing also reports that the patient's sugar significantly increased while on prednisone, but has been trending down. Blood glucose in the past 2 days between 413 and 291. Continue current treatment regimen. 07/28: He reports ?mild? sore throat which started this morning. No associated symptoms. Continue current treatment regimen. 07/29/25: In-person translator and interpreter presence during want to on assessment. Patient reports slept okay last night, appetite good. Denies side effects from medications. Denies anxiety or depression. Sound having sore throat. Reported that fell last night and he has his head badly to the wall. Per nursing, patient lowered himself to the floor. He was irritable agitated at times yesterday. Refused MiraLax this morning. Reports head take 2/10 where he hit the wall yesterday. Patient having questioned regarding when he is discharged. Informed the patient that professor of social work is working on sending the referral out. Pending results. 07/30: Chest XR pending. Continue current medications. 07/31: continue current management and treatment plan. 08/01/25: Interpretive, professor of social work, and this provider met with patient in dining area. Patient reports slept well, feeling rested, no appetite issues. Denies depression or anxiety. No chest pain. No pain anywhere else except for sore throat which he said his feels better today. Review with patient regarding chest x-ray and EKG which was done over the weekends. Educate patient on healthy food and fluid choices. Patient observed and overheard snoring loudly at dinning table before lunch time. nail mill worker continue to send out referral to senior living facility, especially in [facility]. Patient has been declined from other places so far. Patient also seen hospitalist Friday night regarding elevated of BUN/creatinine which consistently with see CKD, encourage fluid intake 08/02/25: Patient is visible in common areas, intermittently attended groups. Compliant with meds. NO side effects. Denies chest pain/pain/or sore throat. Slept for 7 hours, continue to reinforce on health choices of food and fluid as Blood sugar mostly not controlled as patient SW will set up family meeting next week to review with family of discharge plan/placement expectation. Patient was denied from 4 places out of 5 referalls sent out yesterday. CHange Miralax to PRN as patient has been refused it. 08/03/25: Patent report sleep well last night. No change in appetite. Denies depression and anxiety,and safety concerns. He appears tired. Patient reports cough at night and chest pain earlier today- not at the assessment. He sound congestion with sore throat. Nursing later on report patient cough up blood. Hospitalist seen patient, some blood when blowing his nose. Lungs are clear. SW working on aftercare appointments and family collateral. New order for Nasal spray PRN and Mucinex 600mg BID x7days. 08/04/25: nail mill worker met with patient and this provider explained placement housing situation. Patient asked again what the plan for the future even though after the professor of social work explained with him a couple of minutes before. Nursing reports that patient experience visual hallucination of flow of plans in his room when he is up this morning. Patient confirmed with this provider that he has been seeing that in his room. However, it does not scare him, he loves this hallucination as they are beautiful layne/plans. Reports his sleep was interrupted by his roommate who turned on the lights slept the door, he asked if he can move to another room. Explained to patient that currently we are hopeful and can not move people around. Denies safety concerns, denies depression or anxiety. Educate patient on keeping the skin on left middle finger clean, covered with bandage to prevent infection, and do not peel off the skin around the wound. Also educate patient on healthy choices, control diet so that it does not affect his physical health. Denies pain, reports bowel movement last night. Denies constipation. nail mill worker to reach out to family regarding discharge plan. He may not discharge this weekend but early next week. 08/05/25: Patient visible in common areas, report slept well last night. Denies chest pain, continue to improve in cough and congestion. He denies seeing flower plants in his room this morning as VH as he reported yesterday that he has that experience mostly daily. Continue to educate patient on health food and fluid choices and weight control which have positive effects from for his health if they are under control. Education seems to have some effects as his Blood sugar was lower than and improving than it used to be He denies safety concerns now. Have questions regarding when he is discharged which patient was explained to patient by professor of social work ( see SW note for more details) regarding discharge after care plan. Will continue to monitor for mental status change. Per nursing, patient slept well, and compliant with medication. Ambulate independently. Intermittently attended groups, less sedated or sleepy during daytime compare to 1-2 days ago. SW has been contacted family to collaborate to make sure patient has a safe discharge plan. (As of 08/02 Nadine has Been accepted to [facility] btu the issue at hand is the LEANDRO (Patient Review Instrument) that is a requirement for any [facility]) Plan: Bilateral hip pain-resolved Patient does not have any radiculopathy, numbness or tingling in his legs. He is ambulating at baseline without any antalgic gait, not using a walker. Denying any hip pain. CKD 3B Stable. Avoid nephrotoxins. Right lower lobe pneumonia Noted on chest x-ray Continue Levaquin 750 daily for 5 days due to PCN allergy Updraft nebulizer as needed Patient with a history of asthma, not on any maintenance meds. Continue Spiriva Improving Laceration to dorsum of left hand and fingers/scratch abrasions to calf. Continue local wound care Wound care following. No evidence of infection Coronary artery disease/history of stroke/CHF/hypertension Continue aspirin, Plavix, atorvastatin and Jardiance. Continue metoprolol 50 mg daily extended release Continue losartan at 25 mg daily, blood pressure is stable Continue Lasix twice daily at reduced dose in pm. Daily weights. Weight stable. 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 Add glargine 10 units in the morning. Recent A1c 9.1 Can consider starting Trulicity outpatient Continue gabapentin 600 t.i.d. Blood sugars elevated due to prednisone- last dose today Chronic kidney disease Stage 3 B Baseline 1.2 Avoid nephrotoxins Continue to monitor-nephrology consult pending BPH Continue tamsulosin GERD Continue Protonix Vitamin-D deficiency Continue vitamin-D daily Patient educated on: diagnosis, medication risk/benefits and therapeutic strategies Informed Consent: understands Reason for continued inpatient stay Substantial Risk for: med/psych decompensation Time Spent With Patient Time: Total time managing care of this patient today ____ minutes.
[2025-08-05 11:16] LABS: Glucose, Whole Blood 318 mg/dL (60-115)
[2025-08-05 16:12] LABS: Glucose, Whole Blood 184 mg/dL (60-115)
[2025-08-05 20:00] VITALS: BP 120/62; PULSE 83; RESP 16; TEMP 36.9; O2SAT 98
[2025-08-05 20:34] LABS: Glucose, Whole Blood 244 mg/dL (60-115)
[2025-08-05] MEDS: Insulin Glargine,Hum.rec.anlog 100 UNIT/ML 10 ML VIAL 50 UNIT SUBCUT (20:34)
[2025-08-06 06:00] VITALS: BMI 40.1
[2025-08-06 06:46] LABS: Glucose, Whole Blood 126 mg/dL (60-115)
[2025-08-06 08:42] VITALS: BP 122/51; PULSE 88; RESP 18; TEMP 36.3; O2SAT 93
[2025-08-06] MEDS: Tiotropium Bromide 2.5 mcg 1 PUFF/2.5 MCG MIST.INHAL 2 PUFF INHALE (08:43)
[2025-08-06] MEDS: Sodium Chloride 0.65 % Nasal 44 ML SPRBTL 1 SPRAY NOSTRIL-B ×2 (08:43→13:45)
[2025-08-06] MEDS: Insulin Glargine,Hum.rec.anlog 100 UNIT/ML 10 ML VIAL 15 UNIT SUBCUT (08:44)
[2025-08-06] MEDS: Metoprolol Succinate ER 50 MG TAB.ER.24H PO (08:46)
[2025-08-06] MEDS: guaiFENesin LA 600 MG TAB.ER.12H PO ×2 (08:46→22:45)
[2025-08-06] MEDS: Ferrous Sulfate 324 MG TABLET.DR PO ×3 (08:46→20:04)
[2025-08-06] MEDS: Albuterol Sulfate 90 MCG 8 GM INHALER 2 PUFF INHALE (10:27)
[2025-08-06 11:49] LABS: Glucose, Whole Blood 220 mg/dL (60-115)
[2025-08-06 16:18] LABS: Glucose, Whole Blood 277 mg/dL (60-115)
[2025-08-06 19:55] LABS: Glucose, Whole Blood 215 mg/dL (60-115)
[2025-08-06 20:00] VITALS: BP 125/71; PULSE 76; RESP 16; TEMP 36.6; O2SAT 96
[2025-08-06] MEDS: Insulin Glargine,Hum.rec.anlog 100 UNIT/ML 10 ML VIAL 50 UNIT SUBCUT (20:11)
--- NOTE | 2025-08-06 20:21 | P.PNPSI_ITS ---
Subjective Subjective Date of Service: 08/06/25 Reason For Visit: Depression Interim History: chart reviewed, case discussed w/ nursing staff Per nursing report- pt has been depressed/anxious med adherent somatically preoccupied. Endorsed sinus pressure, bleeding from nose. Was encouraged to utilize saline spray Pt was sound asleep, snoring loudly when t/w attempted to interview him. He was not rousable to his name being called multiple times. T/W patted him on the arm to try to wake him and he briefly opened his eyes but was unable to engage in a conversation and went back to sleep. Per pt's roommate's 1:1, pt had been up to eat dinner and had fallen asleep ~20 min before I tried to meet w/ him. Unable to obtain further MSE Diagnostics Vital Signs (24Hr): Vital Signs - 24 hr 08/06/25 08:42 Temperature 97.3 F Pulse Rate 88 Respiratory Rate 18 Blood Pressure 122/51 L Pulse Oximetry 93 Oxygen Delivery Method Room Air BMI result Body Mass Index 40.1 Labs 07/30/25 08:03 Labs: Laboratory Results - last 48 hr 08/04/25 08/05/25 08/05/25 21:19 06:42 11:06 POC Glucose 268 H 241 H 318 H 08/05/25 08/05/25 08/06/25 16:07 20:30 06:32 POC Glucose 184 H 244 H 126 H 08/06/25 08/06/25 08/06/25 11:45 16:02 19:51 POC Glucose 220 H 277 H 215 H Imaging Radiology Impressions: ITS Impressions Chest X-Ray 07/15/25 15:24 IMPRESSION: Clear lungs. Electronically signed by: Brice Bunch MD 07/15/2025 03:40 PM EDT RP Hip/Pelvis X-Ray 07/19/25 11:20 IMPRESSION: Patchy increased sclerosis which may be due to renal osteodystrophy. Other etiologies including metastatic disease are not excluded. Clinical correlation is recommended. Electronically signed by: Brice Bunch MD 07/19/2025 11:49 AM EDT RP Lumbar Spine X-Ray 07/19/25 11:20 IMPRESSION: Mild degenerative disc disease. Electronically signed by: Brice Bunch MD 07/19/2025 11:50 AM EDT RP Chest X-Ray 07/19/25 11:33 IMPRESSION: Right lower lobe pneumonia. Follow-up is recommended to document resolution. Electronically signed by: Brice Bunch MD 07/19/2025 11:44 AM EDT RP Abdomen/Pelvis CT 07/21/25 15:26 IMPRESSION: Lobulated fat-containing umbilical hernia. Atelectasis versus airspace disease, lung bases. Abundant stool without intestinal obstruction pattern. Simple cyst, left kidney. Degenerative changes both hips with questionable trochanter bursitis. Multilevel thoracolumbar spondylosis resulting in central spinal canal stenosis. Please for to the CT lumbar spine. Fleischner guidelines were followed. 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 Mild narrowing of neural foramina bilaterally at along the lumbar spinal canal. The findings are slightly worse on the right at the T12-L1 disc level there is a right facet joint hypertrophy extending into the neural foramina and a small bony spur extending into right lateral recess at the L2-3 disc level. No abnormal enhancement seen within the lower dorsal or lumbar spinal canal or the region of conus medullaris. If patient has persistent radiculopathy and numbness and tingling in the legs further evaluation with neurology may be helpful. Electronically signed by: Gabo Bush MD 07/22/2025 07:26 AM EDT RP Medications Medications Current Medications Acetaminophen (Acetaminophen 325 Mg Tablet) 650 mg PO Q6H PRN PRN Reason: Headache/Pain, Scale 1-10 Last Admin: 08/06/25 13:46 Dose: 650 mg Al Hydroxide/Mg Hydroxide (Magnesium Hydrox/Alum Hydrox 30 Ml Oral.Susp) 30 ml PO Q6H PRN PRN Reason: Heartburn/Nausea Last Admin: 07/25/25 09:57 Dose: 30 ml Albuterol Sulfate (Albuterol Sulfate 90 Mcg 8 Gm Inhaler) 2 puff INHALE RQ4H PRN PRN Reason: SOB/Wheezing Last Admin: 08/06/25 10:27 Dose: 2 puff Aspirin (Aspirin 81 Mg Tab.Chew) 81 mg PO DAILY [facility] Last Admin: 08/06/25 08:46 Dose: 81 mg Atorvastatin Calcium (Atorvastatin Calcium 40 Mg Tablet) 40 mg PO BEDTIME [facility] Last Admin: 08/06/25 20:04 Dose: 40 mg Benzocaine (Throat Lozenge, Medicated Lozenge) 1 lozenge MUCOUS MEM Q2H PRN PRN Reason: Sore Throat Last Admin: 07/30/25 20:15 Dose: 1 lozenge Clopidogrel Bisulfate (Clopidogrel Bisulfate 75 Mg Tablet) 75 mg PO DAILY [facility] Last Admin: 08/06/25 08:46 Dose: 75 mg Cyanocobalamin (Cyanocobalamin (Vitamin B-12) 1,000 Mcg Tablet) 1,000 mcg PO DAILY [facility] Last Admin: 08/06/25 08:45 Dose: 1,000 mcg Empagliflozin (Empagliflozin 10 Mg Tablet) 10 mg PO DAILY [facility] Last Admin: 08/06/25 08:46 Dose: 10 mg Ergocalciferol (Ergocalciferol (Vitamin D2) 1,250 Mcg Capsule) 1,250 mcg PO Fr@0900 [facility] Stop: 09/09/25 09:01 Last Admin: 08/05/25 08:02 Dose: 1,250 mcg Ferrous Sulfate (Ferrous Sulfate 324 Mg Tablet.Dr) 324 mg PO TID [facility] Last Admin: 08/06/25 20:04 Dose: 324 mg Fluticasone Propionate (Fluticasone Propionate Nasal 16 Gm [place]) 1 spray NOSTRIL-B DAILY [facility] Last Admin: 08/06/25 08:44 Dose: 1 spray Furosemide (Furosemide 40 Mg Tablet) 40 mg PO DAILY [facility] On Hold: 07/20/25 09:00 Furosemide (Furosemide 20 Mg Tablet) 20 mg PO DAILY [facility]; Protocol Last Admin: 08/06/25 08:46 Dose: 20 mg Gabapentin (Gabapentin 600 Mg Tablet) 600 mg PO TID [facility] Last Admin: 08/06/25 20:04 Dose: 600 mg Guaifenesin (Guaifenesin La 600 Mg Tab.Er.12h) 600 mg PO BID [facility] Stop: 08/10/25 20:59 Last Admin: 08/06/25 08:46 Dose: 600 mg Insulin Glargine (Insulin Glargine,Hum.Rec.Anlog 100 Unit/Ml 10 Ml Vial) 50 unit SUBCUT BEDTIME [facility] Last Admin: 08/06/25 20:11 Dose: 50 unit Insulin Glargine (Insulin Glargine,Hum.Rec.Anlog 100 Unit/Ml 10 Ml Vial) 15 unit SUBCUT DAILY [facility] Last Admin: 08/06/25 08:44 Dose: 15 unit Insulin Human Lispro (Insulin Lispro 100 Unit/Ml 3 Ml Vial) 0 unit SUBCUT QIDACHS [facility]; Protocol Last Admin: 08/06/25 20:11 Dose: 4 unit Lorazepam (Lorazepam 0.5 Mg Tablet) 0.5 mg PO BID PRN PRN Reason: Anxiety Last Admin: 08/05/25 03:14 Dose: 0.5 mg Losartan Potassium (Losartan Potassium 25 Mg Tablet) 25 mg PO DAILY [facility] On Hold: 07/17/25 09:33 Last Admin: 07/17/25 08:19 Dose: 25 mg Magnesium Hydroxide (Milk Of Magnesia 30 Ml Oral.Susp) 30 ml PO DAILY PRN PRN Reason: Constipation Melatonin (Melatonin 3 Mg Tablet) 6 mg PO BEDTIME [facility] Last Admin: 08/06/25 20:04 Dose: 6 mg Metoprolol Succinate (Metoprolol Succinate Er 50 Mg Tab.Er.24h) 50 mg PO DAILY [facility] Last Admin: 08/06/25 08:46 Dose: 50 mg Montelukast Sodium (Montelukast Sodium 10 Mg Tablet) 10 mg PO BEDTIME [facility] Last Admin: 08/06/25 20:04 Dose: 10 mg Pantoprazole Sodium (Pantoprazole Sodium 20 Mg Tablet.Dr) 40 mg PO DAILY [facility] Last Admin: 08/06/25 08:46 Dose: 40 mg Polyethylene Glycol (Polyethylene Glycol 3350 17 Gm Powd.Pack) 17 gm PO DAILY PRN PRN Reason: Constipation Risperidone (Risperidone 1 Mg Tablet) 1 mg PO BID [facility] Last Admin: 08/06/25 20:04 Dose: 1 mg Sodium Chloride (Sodium Chloride 0.65 % Nasal 44 Ml Sprbtl) 1 spray NOSTRIL-B Q1H PRN PRN Reason: Nasal congestion Last Admin: 08/06/25 13:45 Dose: 1 spray Tamsulosin HCl (Tamsulosin Hcl 0.4 Mg Capsule) 0.4 mg PO BEDTIME [facility] Last Admin: 08/06/25 20:04 Dose: 0.4 mg Thiamine HCl (Thiamine Hcl 100 Mg Tablet) 100 mg PO DAILY [facility] Last Admin: 08/06/25 08:47 Dose: 100 mg Tiotropium [place] (Tiotropium [place] 2.5 Mcg 1 Puff/2.5 Mcg Mist.Inhal) 2 puff INHALE RDAILY [facility] Last Admin: 08/06/25 08:43 Dose: 2 puff Tizanidine HCl (Tizanidine Hcl 4 Mg Tablet) 2 mg PO BEDTIME [facility] Last Admin: 08/06/25 20:04 Dose: 2 mg Tramadol HCl (Tramadol Hcl 50 Mg Tablet) 50 mg PO Q6H PRN PRN Reason: severe left hip pain Last Admin: 08/05/25 02:11 Dose: 50 mg Trazodone HCl (Trazodone Hcl 50 Mg Tablet) 50 mg PO BEDTIME MRX1 PRN PRN Reason: Insomnia Last Admin: 08/05/25 21:39 Dose: 50 mg Allergies Allergies Allergy/AdvReac Type Severity Reaction Status Date / Time Penicillins (PCN) AdvReac Unknown Verified 07/14/25 14:00 Assessment & Plan Assessment & Plan (1) RLL pneumonia: Status: Acute Code(s): J18.9 - Pneumonia, unspecified organism (2) MDD (major depressive disorder), recurrent, severe, with psychosis: Status: Acute Code(s): F33.3 - Major depressive disorder, recurrent, severe with psychotic symptoms (3) Acute kidney injury superimposed on stage 3b chronic kidney disease: Status: Acute Code(s): N17.9 - Acute kidney failure, unspecified; N18.32 - Chronic kidney disease, stage 3b Plan Mr. Eden is a 75 year-old male who was initially brought to [facility] via EMS on [address] by police after [place] was seen in the park inflicting laceration on left hand. No stitches required. He continued to self harm while in the ED. He reports he is hearing voices (reports male voice saying I want to see blood repeatedly), which then led to him acting on the voices thinking it may quiet them down. Although he endorses depressed mood in context of not having stable place to live and passive SI, he reports he does not want to but can't help if voices are ongoing. He reports he is not hearing voices now. We discussed risks, benefits and alternative treatment options. He agreed to start risperidone 1mg po BID. Hospital course: 07/19 continue tx. consult to hospitalist- left hip pain. no fall or injury. Updraft nebulizer as needed Patient with a history of asthma, not on any maintenance meds. Will start Spiriva 07/20: Patient found sitting on his bed with his feet on the floor and arms around his walker. He is irritable and tearful. He reports severe pain to his left hip. He rates his pain as 7/10 on the pain scale. Tramadol was increased to 50 mg Q6H as needed this morning. Patient repeatedly refused pain medication tramadol that his nurse offered at bedside. He eventually took the medication after intervention/education about his pain and treatment modalities by this provider. He denies anxiety or depression. He denies SI/HI/AH/VH. Continue current treatment regimen. PT consult made. 07/21: Reports 4/10 lower back and left hip pain. Cheerful and socializing with peers. Prednisone 40 mg daily x5 days ordered for pain. Continue current treatment regimen. Hortensia, Hospitalist notes she would order more imaging for musculoskeletal pain. 07/22/25: Meet with patient in the presence of aed trainer in sensory room. Patient reports bearable pain on left buttock area, rated pain 2/20. Report he has some happy tears today after talking to his granddaughter who is 5 years as she prays for him to be better to be home soon with family. Report mood and sleep/appetite are good. Denies anxiety/depression or safety concern. He says he would rather stay in [place] instead of returning to [place]. Report that he can stay with her granddaughter who is 48 y.o in [place]. Explained to patient that he may not get good benefits for health insurance as [place] has [place] been [place] in [place] in a good period of time. Report he has been here more than 3 months. Patient is aware of potential family meeting next week on Friday at 1300 virtually and discharge to follow after. VSs stable, no SOB, O2Sat this morning 92% but improved later on of the day. Ambulate with wheelchair. Visbile, sociall appropriately with peers and staff and attended groups. 07/23/25: Patient slept for 5 hours, medication compliant, no side effects. He is reasonable, social and appropriate. Reports singing he [employer] vehicles saw about the pig/pork meat. Denies safety concerns. He was not happy regarding the roommate who was snoring loudly, and was not quiet at night which interfere with his sleep. Encourage patient to to use ear plugs she sees if they are helpful. Blood pressure is fluctuated. We will continue to monitor. Ambulating with a walker. Pain is under control. 07/24/25: Patient slept through the night, was compliant with medications, but not compliant with diabetic protocol. Patient has not care for his diet, blood sugar continued to be high, received coverage. Nursing reported the patient was dancing yesterday but has a tantrum moment over food for dinner yesterday, he threw the walker away which was taken away from the patient for safety issues. Patient requests the walker, explained to patient reason why he can not get walker. He walked with normal steady gait. Reports the pain on the hip is improving. Denies safety concerns. Continued to confirm that he wants to stay in [place]. Reported that his granddaughter will come in in person to have a meeting this week. Denies depression or anxiety, sleep is improving. Changing from 5 to 15 minutes safety checks 07/25/25:Patient slept well, compliant with medication. Denies side effects. POC remains high, asymptomatic, received coverage per Protocol with extra 4 unit of Insulin prior dinner. Denies pain, walking with steady gait. Denies anxiety/depression. Denies SI/SIB/HI/AVH. Patient reports that he has been in this country for 10 [place]. Confirm he wants to stay in [place]. Do not want to return to [place]. Per , meeting with family went well- virtual. Patient will return to [place]. will work on aftercare plan and FLU appointment. 07/26/25: In person Digital Artist utilized. Reports improve in sleep, , medication compliant, denies safety concerns, denies depression and anxiety. Denies pain. Patient reported that he did not attend to family meeting yesterday. Educate patient on healthy food/fluid choices as his blood sugar was elevated much more higher than normal. He spent sometime napping in his room. No behavior issues. Reports sore throat and headache yesterday. Denies headache this morning but reported that he was coughing at night and has sore throat now. 07/27: Nursing also reports that the patient's sugar significantly increased while on prednisone, but has been trending down. Blood glucose in the past 2 days between 413 and 291. Continue current treatment regimen. 07/28: He reports ?mild? sore throat which started this morning. No associated symptoms. Continue current treatment regimen. 07/29/25: In-person client insights consultant presence during want to on assessment. Patient reports slept okay last night, appetite good. Denies side effects from medications. Denies anxiety or depression. Sound having sore throat. Reported that fell last night and he has his head badly to the wall. Per nursing, patient lowered himself to the floor. He was irritable agitated at times yesterday. Refused MiraLax this morning. Reports head take 2/10 where he hit the wall yesterday. Patient having questioned regarding when he is discharged. Informed the patient that director of social services is working on sending the referral out. Pending results. 07/30: Chest XR pending. Continue current medications. 07/31: continue current management and treatment plan. 08/01/25: Interpretive, director of social services, and this provider met with patient in dining area. Patient reports slept well, feeling rested, no appetite issues. Denies depression or anxiety. No chest pain. No pain anywhere else except for sore throat which he said his feels better today. Review with patient regarding chest x-ray and EKG which was done over the weekends. Educate patient on healthy food and fluid choices. Patient observed and overheard snoring loudly at dinning table before lunch time. fish house worker continue to send out referral to jail facility, especially in [facility]. Patient has been declined from other places so far. Patient also seen hospitalist Friday night regarding elevated of BUN/creatinine which consistently with see CKD, encourage fluid intake 08/02/25: Patient is visible in common areas, intermittently attended groups. Compliant with meds. NO side effects. Denies chest pain/pain/or sore throat. Slept for 7 hours, continue to reinforce on health choices of food and fluid as Blood sugar mostly not controlled as patient SW will set up family meeting next week to review with family of discharge plan/placement expectation. Patient was denied from 4 places out of 5 referalls sent out yesterday. CHange Miralax to PRN as patient has been refused it. 08/03/25: Patent report sleep well last night. No change in appetite. Denies depression and anxiety,and safety concerns. He appears tired. Patient reports cough at night and chest pain earlier today- not at the assessment. He sound congestion with sore throat. Nursing later on report patient cough up blood. Hospitalist seen patient, some blood when blowing his nose. Lungs are clear. SW working on aftercare appointments and family collateral. New order for Nasal spray PRN and Mucinex 600mg BID x7days. 08/04/25: fish house worker met with patient and this provider explained placement housing situation. Patient asked again what the plan for the future even though after the director of social services explained with him a couple of minutes before. Nursing reports that patient experience visual hallucination of flow of plans in his room when he is up this morning. Patient confirmed with this provider that he has been seeing that in his room. However, it does not scare him, he loves this hallucination as they are beautiful layne/plans. Reports his sleep was interrupted by his roommate who turned on the lights slept the door, he asked if he can move to another room. Explained to patient that currently we are hopeful and can not move people around. Denies safety concerns, denies depression or anxiety. Educate patient on keeping the skin on left middle finger clean, covered with bandage to prevent infection, and do not peel off the skin around the wound. Also educate patient on healthy choices, control diet so that it does not affect his physical health. Denies pain, reports bowel movement last night. Denies constipation. fish house worker to reach out to family regarding discharge plan. He may not discharge this weekend but early next week. 08/05/25: Patient visible in common areas, report slept well last night. Denies chest pain, continue to improve in cough and congestion. He denies seeing flower plants in his room this morning as VH as he reported yesterday that he has that experience mostly daily. Continue to educate patient on health food and fluid choices and weight control which have positive effects from for his health if they are under control. Education seems to have some effects as his Blood sugar was lower than and improving than it used to be He denies safety concerns now. Have questions regarding when he is discharged which patient was explained to patient by director of social services ( see EDITH note for more details) regarding discharge after care plan. Will continue to monitor for mental status change. Per nursing, patient slept well, and compliant with medication. Ambulate independently. Intermittently attended groups, less sedated or sleepy during daytime compare to 1-2 days ago. has been contacted family to collaborate to make sure patient has a safe discharge plan. (As of 08/02 Nadine has Been accepted to [facility] btu the issue at hand is the LEANDRO (Patient Review Instrument) that is a requirement for any [place] SNF) 08/06: Continue current tx plan Plan: Bilateral hip pain-resolved Patient does not have any radiculopathy, numbness or tingling in his legs. He is ambulating at baseline without any antalgic gait, not using a walker. Denying any hip pain. CKD 3B Stable. Avoid nephrotoxins. Right lower lobe pneumonia Noted on chest x-ray Continue Levaquin 750 daily for 5 days due to PCN allergy Updraft nebulizer as needed Patient with a history of asthma, not on any maintenance meds. Continue Spiriva Improving Laceration to dorsum of left hand and fingers/scratch abrasions to calf. Continue local wound care Wound care following. No evidence of infection Coronary artery disease/history of stroke/CHF/hypertension Continue aspirin, Plavix, atorvastatin and Jardiance. Continue metoprolol 50 mg daily extended release Continue losartan at 25 mg daily, blood pressure is stable Continue Lasix twice daily at reduced dose in pm. Daily weights. Weight stable. 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 Add glargine 10 units in the morning. Recent A1c 9.1 Can consider starting Trulicity outpatient Continue gabapentin 600 t.i.d. Blood sugars elevated due to prednisone- last dose today Chronic kidney disease Stage 3 B Baseline 1.2 Avoid nephrotoxins Continue to monitor-nephrology consult pending BPH Continue tamsulosin GERD Continue Protonix Vitamin-D deficiency Continue vitamin-D daily Reason for continued inpatient stay Substantial Risk for: med/psych decompensation Time Spent With Patient Time: Total time managing care of this patient today ____ minutes.
[2025-08-07] MEDS: Sodium Chloride 0.65 % Nasal 44 ML SPRBTL 1 SPRAY NOSTRIL-B ×2 (02:00→18:20)
[2025-08-07] MEDS: Albuterol Sulfate 90 MCG 8 GM INHALER 2 PUFF INHALE ×2 (02:16→18:20)
[2025-08-07 06:00] VITALS: BMI 40.3
[2025-08-07 06:13] LABS: Glucose, Whole Blood 212 mg/dL (60-115)
[2025-08-07] MEDS: Insulin Glargine,Hum.rec.anlog 100 UNIT/ML 10 ML VIAL 15 UNIT SUBCUT (07:35)
[2025-08-07] MEDS: Ferrous Sulfate 324 MG TABLET.DR PO ×3 (07:36→20:13)
[2025-08-07] MEDS: guaiFENesin LA 600 MG TAB.ER.12H PO ×2 (07:36→20:14)
[2025-08-07 07:41] VITALS: BP 131/73; PULSE 82; RESP 20; TEMP 37; O2SAT 92
[2025-08-07] MEDS: Metoprolol Succinate ER 50 MG TAB.ER.24H PO (07:41)
[2025-08-07] MEDS: Tiotropium Bromide 2.5 mcg 1 PUFF/2.5 MCG MIST.INHAL 2 PUFF INHALE (07:42)
[2025-08-07 11:25] LABS: Glucose, Whole Blood 263 mg/dL (60-115)
[2025-08-07 15:59] LABS: Glucose, Whole Blood 280 mg/dL (60-115)
--- NOTE | 2025-08-07 16:21 | P.PNPSI_ITS ---
Subjective Subjective Date of Service: 08/07/25 Reason For Visit: Depression Interim History: chart reviewed, case discussed w/ nursing staff Per nursing report- more alert today his nurse applied EJ stockings for ROWAN Somatically preoccupied t/w met w/ pt in the common area, where he was sitting at a table w/ another pt. He reports that he has pain everywhere. Showed t/w his legs, asked for a walker. He states he feels very heavy and worries about falling. Endorses nasal pain and previous nose bleeding, asks for head imaging. His mood is anxious. Denies SI. Denies AHVH. Denies med SE MSE: Appearance: good eye contact. grooming/hygiene fair. Attitude:Cooperative Speech: Fluent (switches between German and Wolof) and wnl in regard to volume, tone, prosody Motor activity: Calm and without any tics, tremors or dyskinesias. Mood: as noted above Affect: appropriate, reactive Thought process: goal directed Thought content: somatically preoccupied Perception: Denies AH/VH and does not appear to respond to internal stimuli Insight: fair Judgment: fair Diagnostics Vital Signs (24Hr): Vital Signs - 24 hr 08/06/25 20:00 08/07/25 07:41 08/07/25 07:41 Temperature 98 F Pulse Rate 76 82 Respiratory Rate 16 Blood Pressure 125/71 131/73 131/73 Pulse Oximetry 96 Oxygen Delivery Method Room Air 08/07/25 07:41 Temperature 98.6 F Pulse Rate 82 Respiratory Rate 20 Blood Pressure 131/73 Pulse Oximetry 92 Oxygen Delivery Method Room Air BMI result Body Mass Index 40.3 Labs 07/30/25 08:03 Labs: Laboratory Results - last 48 hr 08/05/25 08/06/25 08/06/25 20:30 06:32 11:45 POC Glucose 244 H 126 H 220 H 08/06/25 08/06/25 08/07/25 16:02 19:51 06:09 POC Glucose 277 H 215 H 212 H 08/07/25 08/07/25 11:21 15:54 POC Glucose 263 H 280 H Imaging Radiology Impressions: ITS Impressions Chest X-Ray 07/15/25 15:24 IMPRESSION: Clear lungs. Electronically signed by: Brice Bunch MD 07/15/2025 03:40 PM EDT Hip/Pelvis X-Ray 07/19/25 11:20 IMPRESSION: Patchy increased sclerosis which may be due to renal osteodystrophy. Other etiologies including metastatic disease are not excluded. Clinical correlation is recommended. Electronically signed by: Brice Bunch MD 07/19/2025 11:49 AM EDT RP Lumbar Spine X-Ray 07/19/25 11:20 IMPRESSION: Mild degenerative disc disease. Electronically signed by: Brice Bunch MD 07/19/2025 11:50 AM EDT RP Chest X-Ray 07/19/25 11:33 IMPRESSION: Right lower lobe pneumonia. Follow-up is recommended to document resolution. Electronically signed by: Brice Bunch MD 07/19/2025 11:44 AM EDT RP Abdomen/Pelvis CT 07/21/25 15:26 IMPRESSION: Lobulated fat-containing umbilical hernia. Atelectasis versus airspace disease, lung bases. Abundant stool without intestinal obstruction pattern. Simple cyst, left kidney. Degenerative changes both hips with questionable trochanter bursitis. Multilevel thoracolumbar spondylosis resulting in central spinal canal stenosis. Please for to the CT lumbar spine. Fleischner guidelines were followed. 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 Mild narrowing of neural foramina bilaterally at along the lumbar spinal canal. The findings are slightly worse on the right at the T12-L1 disc level there is a right facet joint hypertrophy extending into the neural foramina and a small bony spur extending into right lateral recess at the L2-3 disc level. No abnormal enhancement seen within the lower dorsal or lumbar spinal canal or the region of conus medullaris. If patient has persistent radiculopathy and numbness and tingling in the legs further evaluation with neurology may be helpful. Electronically signed by: Gabo Bush MD 07/22/2025 07:26 AM EDT RP Medications Medications Current Medications Acetaminophen (Acetaminophen 325 Mg Tablet) 650 mg PO Q6H PRN PRN Reason: Headache/Pain, Scale 1-10 Last Admin: 08/06/25 13:46 Dose: 650 mg Al Hydroxide/Mg Hydroxide (Magnesium Hydrox/Alum Hydrox 30 Ml Oral.Susp) 30 ml PO Q6H PRN PRN Reason: Heartburn/Nausea Last Admin: 07/25/25 09:57 Dose: 30 ml Albuterol Sulfate (Albuterol Sulfate 90 Mcg 8 Gm Inhaler) 2 puff INHALE RQ4H PRN PRN Reason: SOB/Wheezing Last Admin: 08/07/25 02:16 Dose: 2 puff Aspirin (Aspirin 81 Mg Tab.Chew) 81 mg PO DAILY [facility] Last Admin: 08/07/25 07:35 Dose: 81 mg Atorvastatin Calcium (Atorvastatin Calcium 40 Mg Tablet) 40 mg PO BEDTIME [facility] Last Admin: 08/06/25 20:04 Dose: 40 mg Benzocaine (Throat Lozenge, Medicated Lozenge) 1 lozenge MUCOUS MEM Q2H PRN PRN Reason: Sore Throat Last Admin: 07/30/25 20:15 Dose: 1 lozenge Clopidogrel Bisulfate (Clopidogrel Bisulfate 75 Mg Tablet) 75 mg PO DAILY [facility] Last Admin: 08/07/25 07:36 Dose: 75 mg Cyanocobalamin (Cyanocobalamin (Vitamin B-12) 1,000 Mcg Tablet) 1,000 mcg PO DAILY [facility] Last Admin: 08/07/25 07:36 Dose: 1,000 mcg Empagliflozin (Empagliflozin 10 Mg Tablet) 10 mg PO DAILY [facility] Last Admin: 08/07/25 07:35 Dose: 10 mg Ergocalciferol (Ergocalciferol (Vitamin D2) 1,250 Mcg Capsule) 1,250 mcg PO Fr@0900 [facility] Stop: 09/09/25 09:01 Last Admin: 08/05/25 08:02 Dose: 1,250 mcg Ferrous Sulfate (Ferrous Sulfate 324 Mg Tablet.Dr) 324 mg PO TID [facility] Last Admin: 08/07/25 14:01 Dose: 324 mg Fluticasone Propionate (Fluticasone Propionate Nasal 16 Gm Dickens) 1 spray NOSTRIL-B DAILY [facility] Last Admin: 08/07/25 07:43 Dose: 1 spray Furosemide (Furosemide 40 Mg Tablet) 40 mg PO DAILY [facility] On Hold: 07/20/25 09:00 Furosemide (Furosemide 20 Mg Tablet) 20 mg PO DAILY [facility]; Protocol Last Admin: 08/07/25 07:41 Dose: 20 mg Gabapentin (Gabapentin 600 Mg Tablet) 600 mg PO TID [facility] Last Admin: 08/07/25 14:01 Dose: 600 mg Guaifenesin (Guaifenesin La 600 Mg Tab.Er.12h) 600 mg PO BID [facility] Stop: 08/10/25 20:59 Last Admin: 08/07/25 07:36 Dose: 600 mg Insulin Glargine (Insulin Glargine,Hum.Rec.Anlog 100 Unit/Ml 10 Ml Vial) 50 unit SUBCUT BEDTIME [facility] Last Admin: 08/06/25 20:11 Dose: 50 unit Insulin Glargine (Insulin Glargine,Hum.Rec.Anlog 100 Unit/Ml 10 Ml Vial) 15 unit SUBCUT DAILY [facility] Last Admin: 08/07/25 07:35 Dose: 15 unit Insulin Human Lispro (Insulin Lispro 100 Unit/Ml 3 Ml Vial) 0 unit SUBCUT QIDACHS [facility]; Protocol Last Admin: 08/07/25 16:09 Dose: 6 unit Lorazepam (Lorazepam 0.5 Mg Tablet) 0.5 mg PO BID PRN PRN Reason: Anxiety Last Admin: 08/05/25 03:14 Dose: 0.5 mg Losartan Potassium (Losartan Potassium 25 Mg Tablet) 25 mg PO DAILY [facility] On Hold: 07/17/25 09:33 Last Admin: 07/17/25 08:19 Dose: 25 mg Magnesium Hydroxide (Milk Of Magnesia 30 Ml Oral.Susp) 30 ml PO DAILY PRN PRN Reason: Constipation Melatonin (Melatonin 3 Mg Tablet) 6 mg PO BEDTIME [facility] Last Admin: 08/06/25 20:04 Dose: 6 mg Metoprolol Succinate (Metoprolol Succinate Er 50 Mg Tab.Er.24h) 50 mg PO DAILY [facility] Last Admin: 08/07/25 07:41 Dose: 50 mg Montelukast Sodium (Montelukast Sodium 10 Mg Tablet) 10 mg PO BEDTIME [facility] Last Admin: 08/06/25 20:04 Dose: 10 mg Pantoprazole Sodium (Pantoprazole Sodium 20 Mg Tablet.Dr) 40 mg PO DAILY [facility] Last Admin: 08/07/25 07:36 Dose: 40 mg Polyethylene Glycol (Polyethylene Glycol 3350 17 Gm Powd.Pack) 17 gm PO DAILY PRN PRN Reason: Constipation Risperidone (Risperidone 1 Mg Tablet) 1 mg PO BID [facility] Last Admin: 08/07/25 07:35 Dose: 1 mg Sodium Chloride (Sodium Chloride 0.65 % Nasal 44 Ml Sprbtl) 1 spray NOSTRIL-B Q1H PRN PRN Reason: Nasal congestion Last Admin: 08/07/25 02:00 Dose: 1 spray Tamsulosin HCl (Tamsulosin Hcl 0.4 Mg Capsule) 0.4 mg PO BEDTIME [facility] Last Admin: 08/06/25 20:04 Dose: 0.4 mg Thiamine HCl (Thiamine Hcl 100 Mg Tablet) 100 mg PO DAILY [facility] Last Admin: 08/07/25 07:35 Dose: 100 mg Tiotropium Chevak (Tiotropium [place]ak 2.5 Mcg 1 Puff/2.5 Mcg Mist.Inhal) 2 puff INHALE RDAILY [facility] Last Admin: 08/07/25 07:42 Dose: 2 puff Tizanidine HCl (Tizanidine Hcl 4 Mg Tablet) 2 mg PO BEDTIME [facility] Last Admin: 08/06/25 20:04 Dose: 2 mg Tramadol HCl (Tramadol Hcl 50 Mg Tablet) 50 mg PO Q6H PRN PRN Reason: severe left hip pain Last Admin: 08/07/25 01:49 EST Dose: 50 mg Trazodone HCl (Trazodone Hcl 50 Mg Tablet) 50 mg PO BEDTIME MRX1 PRN PRN Reason: Insomnia Last Admin: 08/05/25 21:39 Dose: 50 mg Allergies Allergies Allergy/AdvReac Type Severity Reaction Status Date / Time Penicillins (PCN) AdvReac Unknown Verified 07/14/25 14:00 Assessment & Plan Assessment & Plan (1) RLL pneumonia: Status: Acute Code(s): J18.9 - Pneumonia, unspecified organism (2) MDD (major depressive disorder), recurrent, severe, with psychosis: Status: Acute Code(s): F33.3 - Major depressive disorder, recurrent, severe with psychotic symptoms (3) Acute kidney injury superimposed on stage 3b chronic kidney disease: Status: Acute Code(s): N17.9 - Acute kidney failure, unspecified; N18.32 - Chronic kidney disease, stage 3b Plan Mr. Eden is a 75 year-old male who was initially brought to [facility] via EMS on [address] by police after he was seen in the park inflicting laceration on left hand. No stitches required. He continued to self harm while in the ED. He reports he is hearing voices (reports male voice saying I want to see blood repeatedly), which then led to him acting on the voices thinking it may quiet them down. Although he endorses depressed mood in context of not having stable place to live and passive SI, he reports he does not want to but can't help if voices are ongoing. He reports he is not hearing voices now. We discussed risks, benefits and alternative treatment options. He agreed to start risperidone 1mg po BID. Hospital course: 07/19 continue tx. consult to hospitalist- left hip pain. no fall or injury. Updraft nebulizer as needed Patient with a history of asthma, not on any maintenance meds. Will start Spiriva 07/20: Patient found sitting on his bed with his feet on the floor and arms around his walker. He is irritable and tearful. He reports severe pain to his left hip. He rates his pain as 7/10 on the pain scale. Tramadol was increased to 50 mg Q6H as needed this morning. Patient repeatedly refused pain medication tramadol that his nurse offered at bedside. He eventually took the medication after intervention/education about his pain and treatment modalities by this provider. He denies anxiety or depression. He denies SI/HI/AH/VH. Continue current treatment regimen. PT consult made. 07/21: Reports 4/10 lower back and left hip pain. Cheerful and socializing with peers. Prednisone 40 mg daily x5 days ordered for pain. Continue current treatment regimen. [place] Hospitalist notes she would order more imaging for musculoskeletal pain. 07/22/25: Meet with patient in the presence of operating room rn in sensory room. Patient reports bearable pain on left buttock area, rated pain 2/20. Report he has some happy tears today after talking to his granddaughter who is 5 years as she prays for him to be better to be home soon with family. Report mood and sleep/appetite are good. Denies anxiety/depression or safety concern. He says he would [place] stay in [place] instead of returning to [place]. Report that he can stay with her granddaughter who is 48 y.o in [place]. Explained to patient that he may not get good benefits for health insurance as he has not been here in [place] in a good period of time. Report he has been here more than 3 months. Patient is aware of potential family meeting next week on Friday at 1300 virtually and discharge to follow after. VSs stable, no SOB, O2Sat this morning 92% but improved later on of the day. Ambulate with wheelchair. Visbile, sociall appropriately with peers and staff and attended groups. 07/23/25: Patient slept for 5 hours, medication compliant, no side effects. He is reasonable, social and appropriate. Reports singing he people's [employer] saw about the pig/pork meat. Denies safety concerns. He was not happy regarding the roommate who was snoring loudly, and was not quiet at night which interfere with his sleep. Encourage patient to to use ear plugs she sees if they are helpful. Blood pressure is fluctuated. We will continue to monitor. Ambulating with a walker. Pain is under control. 07/24/25: Patient slept through the night, was compliant with medications, but not compliant with diabetic protocol. Patient has not care for his diet, blood sugar continued to be high, received coverage. Nursing reported the patient was dancing yesterday but has a tantrum moment over food for dinner yesterday, he threw the walker away which was taken away from the patient for safety issues. Patient requests the walker, explained to patient reason why he can not get walker. He walked with normal steady gait. Reports the pain on the hip is improving. Denies safety concerns. Continued to confirm that he wants to stay in [place]. Reported that his granddaughter will come in in person to have a meeting this week. Denies depression or anxiety, sleep is improving. Changing from 5 to 15 minutes safety checks 07/25/25:Patient slept well, compliant with medication. Denies side effects. POC remains high, asymptomatic, received coverage per Protocol with extra 4 unit of Insulin prior dinner. Denies pain, walking with steady gait. Denies anxiety/depression. Denies SI/SIB/HI/AVH. Patient reports that he has been in this country [place]. Confirm he wants to stay in [place]. Do not want to return to [place]. Per EDITH, meeting with family went well- virtual. Patient will return to [place]. SW will work on aftercare plan and FLU appointment. 07/26/25: In person Solutions Sales Executive utilized. Reports improve in sleep, , medication compliant, denies safety concerns, denies depression and anxiety. Denies pain. Patient reported that he did not attend to family meeting yesterday. Educate patient on healthy food/fluid choices as his blood sugar was elevated much more higher than normal. He spent sometime napping in his room. No behavior issues. Reports sore throat and headache yesterday. Denies headache this morning but reported that he was coughing at night and has sore throat now. 07/27: Nursing also reports that the patient's sugar significantly increased while on prednisone, but has been trending down. Blood glucose in the past 2 days between 413 and 291. Continue current treatment regimen. 07/28: He reports ?mild? sore throat which started this morning. No associated symptoms. Continue current treatment regimen. 07/29/25: In-person shipbuilding draftsperson presence during want to on assessment. Patient reports slept okay last night, appetite good. Denies side effects from medications. Denies anxiety or depression. Sound having sore throat. Reported that fell last night and he has his head badly to the wall. Per nursing, patient lowered himself to the floor. He was irritable agitated at times yesterday. Refused MiraLax this morning. Reports head take 2/10 where he hit the wall yesterday. Patient having questioned regarding when he is discharged. Informed the patient that social contact worker is working on sending the referral out. Pending results. 07/30: Chest XR pending. Continue current medications. 07/31: continue current management and treatment plan. 08/01/25: Interpretive, social contact worker, and this provider met with patient in dining area. Patient reports slept well, feeling rested, no appetite issues. Denies depression or anxiety. No chest pain. No pain anywhere else except for sore throat which he said his feels better today. Review with patient regarding chest x-ray and EKG which was done over the weekends. Educate patient on healthy food and fluid choices. Patient observed and overheard snoring loudly at dinning table before lunch time. rollway worker continue to send out referral to intermediate facility, especially in [facility]. Patient has been declined from other places so far. Patient also seen hospitalist Friday night regarding elevated of BUN/creatinine which consistently with see CKD, encourage fluid intake 08/02/25: Patient is visible in common areas, intermittently attended groups. Compliant with meds. NO side effects. Denies chest pain/pain/or sore throat. Slept for 7 hours, continue to reinforce on health choices of food and fluid as Blood sugar mostly not controlled as patient SW will set up family meeting next week to review with family of discharge plan/placement expectation. Patient was denied from 4 places out of 5 referalls sent out yesterday. CHange Miralax to PRN as patient has been refused it. 08/03/25: Patent report sleep well last night. No change in appetite. Denies depression and anxiety,and safety concerns. He appears tired. Patient reports cough at night and chest pain earlier today- not at the assessment. He sound congestion with sore throat. Nursing later on report patient cough up blood. Hospitalist seen patient, some blood when blowing his nose. Lungs are clear. SW working on aftercare appointments and family collateral. New order for Nasal spray PRN and Mucinex 600mg BID x7days. 08/04/25: rollway worker met with patient and this provider explained placement housing situation. Patient asked again what the plan for the future even though after the social contact worker explained with him a couple of minutes before. Nursing reports that patient experience visual hallucination of flow of plans in his room when he is up this morning. Patient confirmed with this provider that he has been seeing that in his room. However, it does not scare him, he loves this hallucination as they are beautiful layne/plans. Reports his sleep was interrupted by his roommate who turned on the lights slept the door, he asked if he can move to another room. Explained to patient that currently we are hopeful and can not move people around. Denies safety concerns, denies depression or anxiety. Educate patient on keeping the skin on left middle finger clean, covered with bandage to prevent infection, and do not peel off the skin around the wound. Also educate patient on healthy choices, control diet so that it does not affect his physical health. Denies pain, reports bowel movement last night. Denies constipation. rollway worker to reach out to family regarding discharge plan. He may not discharge this weekend but early next week. 08/05/25: Patient visible in common areas, report slept well last night. Denies chest pain, continue to improve in cough and congestion. He denies seeing flower plants in his room this morning as VH as he reported yesterday that he has that experience mostly daily. Continue to educate patient on health food and fluid choices and weight control which have positive effects from for his health if they are under control. Education seems to have some effects as his Blood sugar was lower than and improving than it used to be He denies safety concerns now. Have questions regarding when he is discharged which patient was explained to patient by social contact worker ( see SW note for more details) regarding discharge after care plan. Will continue to monitor for mental status change. Per nursing, patient slept well, and compliant with medication. Ambulate independently. Intermittently attended groups, less sedated or sleepy during daytime compare to 1-2 days ago. EDITH has been contacted family to collaborate to make sure patient has a safe discharge plan. (As of 08/02 Nadine has Been accepted to [facility] btu the issue at hand is the LEANDRO (Patient Review Instrument) that is a requirement for any [place] SNF) 08/06: Continue current tx plan 08/07: EJ stockings placed for ROWAN. Otherwise continue current tx plan Plan: Bilateral hip pain-resolved Patient does not have any radiculopathy, numbness or tingling in his legs. He is ambulating at baseline without any antalgic gait, not using a walker. Denying any hip pain. CKD 3B Stable. Avoid nephrotoxins. Right lower lobe pneumonia Noted on chest x-ray Continue Levaquin 750 daily for 5 days due to PCN allergy Updraft nebulizer as needed Patient with a history of asthma, not on any maintenance meds. Continue Spiriva Improving Laceration to dorsum of left hand and fingers/scratch abrasions to calf. Continue local wound care Wound care following. No evidence of infection Coronary artery disease/history of stroke/CHF/hypertension Continue aspirin, Plavix, atorvastatin and Jardiance. Continue metoprolol 50 mg daily extended release Continue losartan at 25 mg daily, blood pressure is stable Continue Lasix twice daily at reduced dose in pm. Daily weights. Weight stable. 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 Add glargine 10 units in the morning. Recent A1c 9.1 Can consider starting Trulicity outpatient Continue gabapentin 600 t.i.d. Blood sugars elevated due to prednisone- last dose today Chronic kidney disease Stage 3 B Baseline 1.2 Avoid nephrotoxins Continue to monitor-nephrology consult pending BPH Continue tamsulosin GERD Continue Protonix Vitamin-D deficiency Continue vitamin-D daily Reason for continued inpatient stay Substantial Risk for: med/psych decompensation Time Spent With Patient Time: Total time managing care of this patient today ____ minutes.
[2025-08-07 20:00] VITALS: BP 149/62; PULSE 89; RESP 16; TEMP 37.5; O2SAT 92
[2025-08-07] MEDS: Insulin Glargine,Hum.rec.anlog 100 UNIT/ML 10 ML VIAL 50 UNIT SUBCUT (20:15)
[2025-08-07 21:08] LABS: Glucose, Whole Blood 295 mg/dL (60-115)
[2025-08-08 06:00] VITALS: BMI 40.5
[2025-08-08 06:04] LABS: Glucose, Whole Blood 186 mg/dL (60-115)
[2025-08-08 08:24] VITALS: BP 110/51; PULSE 81; RESP 16; TEMP 36.7; O2SAT 96
[2025-08-08] MEDS: guaiFENesin LA 600 MG TAB.ER.12H PO ×2 (08:28→20:30)
[2025-08-08] MEDS: Ferrous Sulfate 324 MG TABLET.DR PO ×3 (08:32→20:29)
[2025-08-08] MEDS: Insulin Glargine,Hum.rec.anlog 100 UNIT/ML 10 ML VIAL 15 UNIT SUBCUT (08:33)
[2025-08-08] MEDS: Tiotropium Bromide 2.5 mcg 1 PUFF/2.5 MCG MIST.INHAL 2 PUFF INHALE (08:34)
[2025-08-08 11:31] LABS: Glucose, Whole Blood 268 mg/dL (60-115)
--- NOTE | 2025-08-08 12:32 | P.PNPSI_ITS ---
Subjective Subjective Date of Service: 08/08/25 Reason For Visit: Depression Subjective Notes: Conditional Voluntary Interim History: Pt reports last week he hit his head when he felt. He reports since then he noticed nose bleed, headache and blurry vision. No head CT at moment- pt is on two anticoagulant medications. VS- stable. ordered head CT- no signs of intracraneal bleed. CBC does show decreased Hgb from admission 10.6 to 8.9/ Hct 33 to 29.3. Hospitalist consulted- ordered occult blood sample and held both aspirin and plavix. In terms of his mood, pt denies depressed mood. He also denies SI/HI. He reports he is no longer hearing voices. taking medications. He does have a bed at [facility] in [place] but needs assessment completed by RN with [place] license- SW coordinating this. Review of Systems Review of Systems Const : no body aches, no chills, no excessive sweating and no fatigue Eyes: no blurry vision and no change in vision ENT: no bleeding gums and no change in voice, no dizziness Card: no chest pain, ?no shortness of breath, no orthopnea, no PND Resp: report cough last night with sore throat now, ?no excessive phlegm production, no SOB GI: no abdominal pain and no nausea, no vomiting : no hematuria, no urinary frequency and no difficulty voiding Musc: no abnormal gait, no bone pain Neuro: no ?abnormal movements, no weakness,and +behavioral changes Psych: no behavioral changes and no change in appetite Endo: no change in body appearance, no cold intolerance, Yes all other systems are reviewed and are negative Mental Status Exam Mental Status Exam Narrative: Appearance: MO, wearing hospital gown, fair hygiene, in NAD behavior: cooperative Psychomotor: no agitation or retardation noted Speech: clear, normal rate/rhythm/volume, spontaneous TP: linear TC: feeling better in terms of mood, but number of medical concern. Mood: better Affect: congruent SI: none HI: none VH/AH: none Delusions: none Insight/judgment: poor x 2. Memory/cog: alert, oriented x 4. Diagnostics Vital Signs (24Hr): Vital Signs - 24 hr 08/07/25 20:00 08/08/25 08:24 Temperature 99.5 F 98.0 F Pulse Rate 89 81 Respiratory Rate 16 16 Blood Pressure 149/62 H 110/51 L Pulse Oximetry 92 96 Oxygen Delivery Method Room Air Room Air BMI result Body Mass Index 40.5 Labs 08/10/25 08:06 08/08/25 14:04 Labs: Laboratory Results - last 48 hr 08/06/25 08/06/25 08/07/25 16:02 19:51 06:09 POC Glucose 277 H 215 H 212 H 08/07/25 08/07/25 08/07/25 11:21 15:54 21:03 POC Glucose 263 H 280 H 295 H 08/08/25 08/08/25 06:00 11:27 POC Glucose 186 H 268 H Imaging Radiology Impressions: ITS Impressions Chest X-Ray 07/15/25 15:24 IMPRESSION: Clear lungs. Electronically signed by: Brice Bunch MD 07/15/2025 03:40 PM EDT RP Hip/Pelvis X-Ray 07/19/25 11:20 IMPRESSION: Patchy increased sclerosis which may be due to renal osteodystrophy. Other etiologies including metastatic disease are not excluded. Clinical correlation is recommended. Electronically signed by: Brice Bunch MD 07/19/2025 11:49 AM EDT RP Lumbar Spine X-Ray 07/19/25 11:20 IMPRESSION: Mild degenerative disc disease. Electronically signed by: Brice Bunch MD 07/19/2025 11:50 AM EDT RP Chest X-Ray 07/19/25 11:33 IMPRESSION: Right lower lobe pneumonia. Follow-up is recommended to document resolution. Electronically signed by: Brice Bunch MD 07/19/2025 11:44 AM EDT RP Abdomen/Pelvis CT 07/21/25 15:26 IMPRESSION: Lobulated fat-containing umbilical hernia. Atelectasis versus airspace disease, lung bases. Abundant stool without intestinal obstruction pattern. Simple cyst, left kidney. Degenerative changes both hips with questionable trochanter bursitis. Multilevel thoracolumbar spondylosis resulting in central spinal canal stenosis. Please for to the CT lumbar spine. Fleischner guidelines were followed. 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 Mild narrowing of neural foramina bilaterally at along the lumbar spinal canal. The findings are slightly worse on the right at the T12-L1 disc level there is a right facet joint hypertrophy extending into the neural foramina and a small bony spur extending into right lateral recess at the L2-3 disc level. No abnormal enhancement seen within the lower dorsal or lumbar spinal canal or the region of conus medullaris. If patient has persistent radiculopathy and numbness and tingling in the legs further evaluation with neurology may be helpful. Electronically signed by: Gabo Bush MD 07/22/2025 07:26 AM EDT RP Medications Medications Current Medications Acetaminophen (Acetaminophen 325 Mg Tablet) 650 mg PO Q6H PRN PRN Reason: Headache/Pain, Scale 1-10 Last Admin: 08/06/25 13:46 Dose: 650 mg Al Hydroxide/Mg Hydroxide (Magnesium Hydrox/Alum Hydrox 30 Ml Oral.Susp) 30 ml PO Q6H PRN PRN Reason: Heartburn/Nausea Last Admin: 07/25/25 09:57 Dose: 30 ml Albuterol Sulfate (Albuterol Sulfate 90 Mcg 8 Gm Inhaler) 2 puff INHALE RQ4H PRN PRN Reason: SOB/Wheezing Last Admin: 08/07/25 18:20 Dose: 2 puff Aspirin (Aspirin 81 Mg Tab.Chew) 81 mg PO DAILY [facility] Last Admin: 08/08/25 08:32 Dose: 81 mg Atorvastatin Calcium (Atorvastatin Calcium 40 Mg Tablet) 40 mg PO BEDTIME [facility] Last Admin: 08/07/25 20:14 Dose: 40 mg Benzocaine (Throat Lozenge, Medicated Lozenge) 1 lozenge MUCOUS MEM Q2H PRN PRN Reason: Sore Throat Last Admin: 07/30/25 20:15 Dose: 1 lozenge Clopidogrel Bisulfate (Clopidogrel Bisulfate 75 Mg Tablet) 75 mg PO DAILY [facility] Last Admin: 08/08/25 08:29 Dose: 75 mg Cyanocobalamin (Cyanocobalamin (Vitamin B-12) 1,000 Mcg Tablet) 1,000 mcg PO DAILY [facility] Last Admin: 08/08/25 08:32 Dose: 1,000 mcg Empagliflozin (Empagliflozin 10 Mg Tablet) 10 mg PO DAILY [facility] Last Admin: 08/08/25 08:32 Dose: 10 mg Ergocalciferol (Ergocalciferol (Vitamin D2) 1,250 Mcg Capsule) 1,250 mcg PO Fr@0900 [facility] Stop: 09/09/25 09:01 Last Admin: 08/05/25 08:02 Dose: 1,250 mcg Ferrous Sulfate (Ferrous Sulfate 324 Mg Tablet.Dr) 324 mg PO TID [facility] Last Admin: 08/08/25 08:32 Dose: 324 mg Fluticasone Propionate (Fluticasone Propionate Nasal 16 Gm [place]) 1 spray NOSTRIL-B DAILY [facility] Last Admin: 08/08/25 08:44 Dose: 1 spray Furosemide (Furosemide 40 Mg Tablet) 40 mg PO DAILY [facility] On Hold: 07/20/25 09:00 Furosemide (Furosemide 20 Mg Tablet) 20 mg PO DAILY [facility]; Protocol Last Admin: 08/08/25 08:29 Dose: 20 mg Gabapentin (Gabapentin 600 Mg Tablet) 600 mg PO TID [facility] Last Admin: 08/08/25 08:32 Dose: 600 mg Guaifenesin (Guaifenesin La 600 Mg Tab.Er.12h) 600 mg PO BID [facility] Stop: 08/10/25 20:59 Last Admin: 08/08/25 08:28 Dose: 600 mg Insulin Glargine (Insulin Glargine,Hum.Rec.Anlog 100 Unit/Ml 10 Ml Vial) 50 unit SUBCUT BEDTIME [facility] Last Admin: 08/07/25 20:15 Dose: 50 unit Insulin Glargine (Insulin Glargine,Hum.Rec.Anlog 100 Unit/Ml 10 Ml Vial) 15 unit SUBCUT DAILY [facility] Last Admin: 08/08/25 08:33 Dose: 15 unit Insulin Human Lispro (Insulin Lispro 100 Unit/Ml 3 Ml Vial) 0 unit SUBCUT QIDACHS [facility]; Protocol Last Admin: 08/08/25 11:36 Dose: 6 unit Lorazepam (Lorazepam 0.5 Mg Tablet) 0.5 mg PO BID PRN PRN Reason: Anxiety Last Admin: 08/05/25 03:14 Dose: 0.5 mg Losartan Potassium (Losartan Potassium 25 Mg Tablet) 25 mg PO DAILY [facility] On Hold: 07/17/25 09:33 Last Admin: 07/17/25 08:19 Dose: 25 mg Magnesium Hydroxide (Milk Of Magnesia 30 Ml Oral.Susp) 30 ml PO DAILY PRN PRN Reason: Constipation Melatonin (Melatonin 3 Mg Tablet) 6 mg PO BEDTIME [facility] Last Admin: 08/07/25 20:14 Dose: 6 mg Metoprolol Succinate (Metoprolol Succinate Er 50 Mg Tab.Er.24h) 50 mg PO DAILY [facility] Last Admin: 08/08/25 08:32 Dose: Not Given Montelukast Sodium (Montelukast Sodium 10 Mg Tablet) 10 mg PO BEDTIME [facility] Last Admin: 08/07/25 20:14 Dose: 10 mg Pantoprazole Sodium (Pantoprazole Sodium 20 Mg Tablet.Dr) 40 mg PO DAILY [facility] Last Admin: 08/08/25 08:32 Dose: 40 mg Polyethylene Glycol (Polyethylene Glycol 3350 17 Gm Powd.Pack) 17 gm PO DAILY PRN PRN Reason: Constipation Risperidone (Risperidone 1 Mg Tablet) 1 mg PO BID [facility] Last Admin: 08/08/25 08:28 Dose: 1 mg Sodium Chloride (Sodium Chloride 0.65 % Nasal 44 Ml Sprbtl) 1 spray NOSTRIL-B Q1H PRN PRN Reason: Nasal congestion Last Admin: 08/07/25 18:20 Dose: 1 spray Tamsulosin HCl (Tamsulosin Hcl 0.4 Mg Capsule) 0.4 mg PO BEDTIME [facility] Last Admin: 08/07/25 20:14 Dose: 0.4 mg Thiamine HCl (Thiamine Hcl 100 Mg Tablet) 100 mg PO DAILY [facility] Last Admin: 08/08/25 08:32 Dose: 100 mg Tiotropium [place] (Tiotropium [place] 2.5 Mcg 1 Puff/2.5 Mcg Mist.Inhal) 2 puff INHALE RDAILY [facility] Last Admin: 08/08/25 08:34 Dose: 2 puff Tizanidine HCl (Tizanidine Hcl 4 Mg Tablet) 2 mg PO BEDTIME [facility] Last Admin: 08/07/25 20:13 Dose: 2 mg Tramadol HCl (Tramadol Hcl 50 Mg Tablet) 50 mg PO Q6H PRN PRN Reason: severe left hip pain Last Admin: 08/07/25 01:49 EST Dose: 50 mg Trazodone HCl (Trazodone Hcl 50 Mg Tablet) 50 mg PO BEDTIME MRX1 PRN PRN Reason: Insomnia Last Admin: 08/05/25 21:39 Dose: 50 mg Allergies Allergies Allergy/AdvReac Type Severity Reaction Status Date / Time Penicillins (PCN) AdvReac Unknown Verified 07/14/25 14:00 Assessment & Plan Assessment & Plan (1) MDD (major depressive disorder), recurrent, severe, with psychosis: Status: Acute Code(s): F33.3 - Major depressive disorder, recurrent, severe with psychotic symptoms (2) RLL pneumonia: Status: Acute Code(s): J18.9 - Pneumonia, unspecified organism (3) Acute kidney injury superimposed on stage 3b chronic kidney disease: Status: Acute Code(s): N17.9 - Acute kidney failure, unspecified; N18.32 - Chronic kidney disease, stage 3b Plan Mr. Eden is a 75 year-old male who was initially brought to [facility] via EMS on [address] by police after he was seen in the park inflicting laceration on left hand. No stitches required. He continued to self harm while in the ED. He reports he is hearing voices (reports male voice saying I want to see blood repeatedly), which then led to him acting on the voices thinking it may quiet them down. Although he endorses depressed mood in context of not having stable place to live and passive SI, he reports he does not want to but can't help if voices are ongoing. He reports he is not hearing voices now. We discussed risks, benefits and alternative treatment options. He agreed to start risperidone 1mg po BID. Hospital course: 07/19 continue tx. consult to hospitalist- left hip pain. no fall or injury. Updraft nebulizer as needed Patient with a history of asthma, not on any maintenance meds. Will start Spiriva 07/20: Patient found sitting on his bed with his feet on the floor and arms around his walker. He is irritable and tearful. He reports severe pain to his left hip. He rates his pain as 7/10 on the pain scale. Tramadol was increased to 50 mg Q6H as needed this morning. Patient repeatedly refused pain medication tramadol that his nurse offered at bedside. He eventually took the medication after intervention/education about his pain and treatment modalities by this provider. He denies anxiety or depression. He denies SI/HI/AH/VH. Continue current treatment regimen. PT consult made. 07/21: Reports 4/10 lower back and left hip pain. Cheerful and socializing with peers. Prednisone 40 mg daily x5 days ordered for pain. Continue current treatment regimen. Hortensia, Hospitalist notes she would order more imaging for musculoskeletal pain. 07/22/25: Meet with patient in the presence of dispensary attendant in sensory room. Patient reports bearable pain on left buttock area, rated pain 2/20. Report he has some happy tears today after talking to his granddaughter who is 5 years as she prays for him to be better to be home soon with family. Report mood and sleep/appetite are good. Denies anxiety/depression or safety concern. He says he would rather stay in [place] instead of returning to [place]. Report that he can stay with her granddaughter who is 48 y.o in [place]. Explained to patient that he may not get good benefits for health insurance as he has not been here in [place] in a good period of time. Report he has been here more than 3 months. Patient is aware of potential family meeting next week on Friday at 1300 virtually and discharge to follow after. VSs stable, no SOB, O2Sat this morning 92% but improved later on of the day. Ambulate with wheelchair. Visbile, sociall appropriately with peers and staff and attended groups. 07/23/25: Patient slept for 5 hours, medication compliant, no side effects. He is reasonable, social and appropriate. Reports singing he people's vehicles saw about the pig/pork meat. Denies safety concerns. He was not happy regarding the roommate who was snoring loudly, and was not quiet at night which interfere with his sleep. Encourage patient to to use ear plugs she sees if they are helpful. Blood pressure is fluctuated. We will continue to monitor. Ambulating with a walker. Pain is under control. 07/24/25: Patient slept through the night, was compliant with medications, but not compliant with diabetic protocol. Patient has not care for his diet, blood sugar continued to be high, received coverage. Nursing reported the patient was dancing yesterday but has a tantrum moment over food for dinner yesterday, he threw the walker away which was taken away from the patient for safety issues. Patient requests the walker, explained to patient reason why he can not get walker. He walked with normal steady gait. Reports the pain on the hip is improving. Denies safety concerns. Continued to confirm that he wants to stay in [place]. Reported that his granddaughter will come in in person to have a meeting this week. Denies depression or anxiety, sleep is improving. Changing from 5 to 15 minutes safety checks 07/25/25:Patient slept well, compliant with medication. Denies side effects. POC remains high, asymptomatic, received coverage per Protocol with extra 4 unit of Insulin prior dinner. Denies pain, walking with steady gait. Denies anxiety/depression. Denies SI/SIB/HI/AVH. Patient reports that he has been in this country for 10 [place]. Confirm he wants to stay in [place]. Do not want to return to [place]. Per , meeting with family went well- virtual. Patient will return to [place]. will work on aftercare plan and FLU appointment. 07/26/25: In person Accident Report Clerk utilized. Reports improve in sleep, , medication compliant, denies safety concerns, denies depression and anxiety. Denies pain. Patient reported that he did not attend to family meeting yesterday. Educate patient on healthy food/fluid choices as his blood sugar was elevated much more higher than normal. He spent sometime napping in his room. No behavior issues. Reports sore throat and headache yesterday. Denies headache this morning but reported that he was coughing at night and has sore throat now. 07/27: Nursing also reports that the patient's sugar significantly increased while on prednisone, but has been trending down. Blood glucose in the past 2 days between 413 and 291. Continue current treatment regimen. 07/28: He reports ?mild? sore throat which started this morning. No associated symptoms. Continue current treatment regimen. 07/29/25: In-person photograph mounter presence during want to on assessment. Patient reports slept okay last night, appetite good. Denies side effects from medications. Denies anxiety or depression. Sound having sore throat. Reported that fell last night and he has his head badly to the wall. Per nursing, patient lowered himself to the floor. He was irritable agitated at times yesterday. Refused MiraLax this morning. Reports head take 2/10 where he hit the wall yesterday. Patient having questioned regarding when he is discharged. Informed the patient that social media marketing specialist is working on sending the referral out. Pending results. 07/30: Chest XR pending. Continue current medications. 07/31: continue current management and treatment plan. 08/01/25: Interpretive, social media marketing specialist, and this provider met with patient in dining area. Patient reports slept well, feeling rested, no appetite issues. Denies depression or anxiety. No chest pain. No pain anywhere else except for sore throat which he said his feels better today. Review with patient regarding chest x-ray and EKG which was done over the weekends. Educate patient on healthy food and fluid choices. Patient observed and overheard snoring loudly at dinning table before lunch time. relay worker continue to send out referral to senior living facility, especially in [facility]. Patient has been declined from other places so far. Patient also seen hospitalist Friday night regarding elevated of BUN/creatinine which consistently with see CKD, encourage fluid intake 08/02/25: Patient is visible in common areas, intermittently attended groups. Compliant with meds. NO side effects. Denies chest pain/pain/or sore throat. Slept for 7 hours, continue to reinforce on health choices of food and fluid as Blood sugar mostly not controlled as patient SW will set up family meeting next week to review with family of discharge plan/placement expectation. Patient was denied from 4 places out of 5 referalls sent out yesterday. CHange Miralax to PRN as patient has been refused it. 08/03/25: Patent report sleep well last night. No change in appetite. Denies depression and anxiety,and safety concerns. He appears tired. Patient reports cough at night and chest pain earlier today- not at the assessment. He sound congestion with sore throat. Nursing later on report patient cough up blood. Hospitalist seen patient, some blood when blowing his nose. Lungs are clear. SW working on aftercare appointments and family collateral. New order for Nasal spray PRN and Mucinex 600mg BID x7days. 08/04/25: relay worker met with patient and this provider explained placement housing situation. Patient asked again what the plan for the future even though after the social media marketing specialist explained with him a couple of minutes before. Nursing reports that patient experience visual hallucination of flow of plans in his room when he is up this morning. Patient confirmed with this provider that he has been seeing that in his room. However, it does not scare him, he loves this hallucination as they are beautiful layne/plans. Reports his sleep was interrupted by his roommate who turned on the lights slept the door, he asked if he can move to another room. Explained to patient that currently we are hopeful and can not move people around. Denies safety concerns, denies depression or anxiety. Educate patient on keeping the skin on left middle finger clean, covered with bandage to prevent infection, and do not peel off the skin around the wound. Also educate patient on healthy choices, control diet so that it does not affect his physical health. Denies pain, reports bowel movement last night. Denies constipation. relay worker to reach out to family regarding discharge plan. He may not discharge this weekend but early next week. 08/05/25: Patient visible in common areas, report slept well last night. Denies chest pain, continue to improve in cough and congestion. He denies seeing flower plants in his room this morning as VH as he reported yesterday that he has that experience mostly daily. Continue to educate patient on health food and fluid choices and weight control which have positive effects from for his health if they are under control. Education seems to have some effects as his Blood sugar was lower than and improving than it used to be He denies safety concerns now. Have questions regarding when he is discharged which patient was explained to patient by social media marketing specialist ( see EDITH note for more details) regarding discharge after care plan. Will continue to monitor for mental status change. Per nursing, patient slept well, and compliant with medication. Ambulate independently. Intermittently attended groups, less sedated or sleepy during daytime compare to 1-2 days ago. EDITH has been contacted family to collaborate to make sure patient has a safe discharge plan. (As of 08/02 Nadine has Been accepted to [facility] btu the issue at hand is the LEANDRO (Patient Review Instrument) that is a requirement for any [place] SNF) 08/06: Continue current tx plan 08/07: EJ stockings placed for ROWAN. Otherwise continue current tx plan 08/08 reports head injury last week- increase headache, nose bleed- ordered head CT- no signs of intracraneal bleeding. However, HgB dropping from 10.6 to 8.9. pt on two anticoagulants- hospitalist consulted- ordered occult blood test and aspirin and plavix held. Plan: Bilateral hip pain-resolved Patient does not have any radiculopathy, numbness or tingling in his legs. He is ambulating at baseline without any antalgic gait, not using a walker. Denying any hip pain. CKD 3B Stable. Avoid nephrotoxins. Right lower lobe pneumonia Noted on chest x-ray Continue Levaquin 750 daily for 5 days due to PCN allergy Updraft nebulizer as needed Patient with a history of asthma, not on any maintenance meds. Continue Spiriva Improving Laceration to dorsum of left hand and fingers/scratch abrasions to calf. Continue local wound care Wound care following. No evidence of infection Coronary artery disease/history of stroke/CHF/hypertension Continue aspirin, Plavix, atorvastatin and Jardiance. Continue metoprolol 50 mg daily extended release Continue losartan at 25 mg daily, blood pressure is stable Continue Lasix twice daily at reduced dose in pm. Daily weights. Weight stable. 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 Add glargine 10 units in the morning. Recent A1c 9.1 Can consider starting Trulicity outpatient Continue gabapentin 600 t.i.d. Blood sugars elevated due to prednisone- last dose today Chronic kidney disease Stage 3 B Baseline 1.2 Avoid nephrotoxins Continue to monitor-nephrology consult pending BPH Continue tamsulosin GERD Continue Protonix Vitamin-D deficiency Continue vitamin-D daily Reason for continued inpatient stay Substantial Risk for: inability to function Time Spent With Patient Time: Total time managing care of this patient today ____ minutes.
[2025-08-08 14:49] LABS: Alanine Aminotransferase 17 U/L (0-40); Albumin Level 3.3 g/dL (3.5-5.0); Alkaline Phosphatase 94 U/L (39-117); Anion Gap 9 (12-20); Aspartate Amino Transferase 26 U/L (5-37); Blood Urea Nitrogen 37 mg/dL (9-16); Calcium 8.8 mg/dL (8.4-10.2); Carbon Dioxide 30 mmol/L (22-29); Chloride 102 mmol/L (96-108); Creatinine Clr Calc Pharmacy 55.0; Estimated Glomerular Filt Rate 53; Potassium 4.8 mmol/L (3.3-5.1); Sodium 136 mmol/L (135-145); Total Protein 6.9 g/dL (6.5-8.0)
[2025-08-08 16:26] LABS: Glucose, Whole Blood 288 mg/dL (60-115)
[2025-08-08 17:04] LABS: MANUAL DIFF FLAG NO
[2025-08-08 17:07] LABS: Hematocrit 29.3 % (42.0-52.0); Hemoglobin 8.9 g/dl (14.0-18.0); Imm Gran Abs Auto 0.13 X10*3/uL (0.00-0.03); Imm Gran Pct Auto 1.2 % (0.0-0.4); Lymphocytes Absolute Auto 1.1 X10*3/uL (1.2-4.9); Mean Corpuscular HGB Conc 30.4 g/dl (31.0-36.0); Mean Corpuscular Hemoglobin 27.4 pg (27.0-33.0); Mean Corpuscular Volume 90.2 fL (80.0-98.0); NRBC Abs Auto 0.000 X10*3/uL (0.0-0.012); NRBC Pct Auto 0.0 /100WBC (0.0-0.2); Platelet Count 237 X10*3/uL (160-400); Red Blood Count 3.25 X10*6/uL (4.60-5.80); White Blood Count 10.6 X10*3/uL (4.8-10.8)
[2025-08-08 20:00] VITALS: BP 115/56; PULSE 79; RESP 18; TEMP 36.8; O2SAT 94
[2025-08-08 20:25] LABS: Glucose, Whole Blood 276 mg/dL (60-115)
[2025-08-08] MEDS: Albuterol Sulfate 90 MCG 8 GM INHALER 2 PUFF INHALE (20:27)
[2025-08-08] MEDS: Insulin Glargine,Hum.rec.anlog 100 UNIT/ML 10 ML VIAL 50 UNIT SUBCUT (20:30)
[2025-08-09 05:33] VITALS: BMI 40.7
[2025-08-09 06:49] LABS: Glucose, Whole Blood 234 mg/dL (60-115)
[2025-08-09 07:59] VITALS: BP 137/64; PULSE 85; RESP 18; TEMP 36.9; O2SAT 94
[2025-08-09] MEDS: Insulin Glargine,Hum.rec.anlog 100 UNIT/ML 10 ML VIAL 15 UNIT SUBCUT (08:00)
[2025-08-09] MEDS: Metoprolol Succinate ER 50 MG TAB.ER.24H PO (08:01)
[2025-08-09] MEDS: Ferrous Sulfate 324 MG TABLET.DR PO ×3 (08:01→20:58)
[2025-08-09] MEDS: guaiFENesin LA 600 MG TAB.ER.12H PO ×2 (08:01→20:57)
[2025-08-09] MEDS: Tiotropium Bromide 2.5 mcg 1 PUFF/2.5 MCG MIST.INHAL 2 PUFF INHALE (08:02)
[2025-08-09 11:18] LABS: Glucose, Whole Blood 224 mg/dL (60-115)
[2025-08-09 11:20] LABS: MANUAL DIFF FLAG NO
[2025-08-09 11:28] LABS: Hematocrit 28.2 % (42.0-52.0); Hemoglobin 8.4 g/dl (14.0-18.0); Imm Gran Abs Auto 0.11 X10*3/uL (0.00-0.03); Imm Gran Pct Auto 1.1 % (0.0-0.4); Lymphocytes Absolute Auto 1.0 X10*3/uL (1.2-4.9); Mean Corpuscular HGB Conc 29.8 g/dl (31.0-36.0); Mean Corpuscular Hemoglobin 26.9 pg (27.0-33.0); Mean Corpuscular Volume 90.4 fL (80.0-98.0); NRBC Abs Auto 0.000 X10*3/uL (0.0-0.012); NRBC Pct Auto 0.0 /100WBC (0.0-0.2); Platelet Count 237 X10*3/uL (160-400); Red Blood Count 3.12 X10*6/uL (4.60-5.80); White Blood Count 9.7 X10*3/uL (4.8-10.8)
[2025-08-09 16:14] LABS: Glucose, Whole Blood 219 mg/dL (60-115)
--- NOTE | 2025-08-09 18:00 | PC.NURSE ---
Addendum entered by Arianna Hernandez RN 08/09/25 18:47: Pt c/o of right groin pain, 8/ pain, Tylenol given, Bladder scan 23ml, provider aware. Original Note: pt upset reporting that it hurts when he urinates, he punched the wall with his right hand in the [facility] room. Provider notified, incident report filed.
[2025-08-09 18:35] LABS: Appearance Urine Clear; Glucose Urine UA >=1000 mg/dL (Negative); PH 6.5 (5.0-9.0); Specific Gravity - Urine 1.020 (1.005-1.025); UMIC TRIGGER UACC YES
[2025-08-09 19:42] VITALS: BP 131/60; PULSE 88; RESP 16; TEMP 36.8; O2SAT 93
--- NOTE | 2025-08-09 19:55 | P.PNPSI_ITS ---
Subjective Subjective Date of Service: 08/09/25 Reason For Visit: Depression Subjective Notes: Conditional Voluntary Interim History: Pt sleeping through the night. He reports mood is better no acute concerns in terms of depression, SI or AH. He is visible on the unit, social with select peers. HOspitalist following re: anemia. taking medications. Mental Status Exam Mental Status Exam Narrative: Appearance: MO, wearing hospital gown, fair hygiene, in NAD behavior: cooperative Psychomotor: no agitation or retardation noted Speech: clear, normal rate/rhythm/volume, spontaneous TP: linear TC: feeling better in terms of mood, but number of medical concern. Mood: better Affect: congruent SI: none HI: none VH/AH: none Delusions: none Insight/judgment: poor x 2. Memory/cog: alert, oriented x 4. Diagnostics Vital Signs (24Hr): Vital Signs - 24 hr 08/08/25 20:00 08/09/25 07:59 08/09/25 19:42 Temperature 98.2 F 98.4 F 98.2 F Pulse Rate 79 85 88 Respiratory Rate 18 18 16 Blood Pressure 115/56 L 137/64 131/60 Pulse Oximetry 94 94 93 Oxygen Delivery Method Room Air Room Air Room Air BMI result Body Mass Index 40.7 Labs 08/10/25 08:06 08/08/25 14:04 Labs: Laboratory Results - last 48 hr 08/07/25 08/08/25 08/08/25 21:03 06:00 11:27 WBC RBC Hgb Hct MCV MCH MCHC RDW Plt Count MPV Immature Gran % (Auto) Neut % (Auto) Lymph % (Auto) [place] % (Auto) Eos % (Auto) Baso % (Auto) Lymph # (Auto) [place] # (Auto) Eos # (Auto) Baso # (Auto) Abs Immat Gran (auto) Absolute Neuts (auto) Absolute Nucleated RBC Nucleated RBC % (auto) Sodium Potassium Chloride Carbon Dioxide Anion Gap BUN Creatinine Estim Creat Clear Calc Estimated GFR POC Glucose 295 H 186 H 268 H Random Glucose Calcium Total Bilirubin AST ALT Alkaline Phosphatase Total Protein Albumin Urine Color Urine Appearance Urine pH Ur Specific [place] Urine Protein Urine Glucose (UA) Urine Ketones Urine Blood Urine Nitrite Ur Leukocyte Esterase Urine RBC Urine WBC Ur Squamous Epith Cells Urine Bacteria Hyaline Casts 08/08/25 08/08/25 08/08/25 14:04 16:11 17:01 WBC 10.6 RBC 3.25 L Hgb 8.9 L Hct 29.3 L MCV 90.2 MCH 27.4 MCHC 30.4 L RDW 17.4 H Plt Count 237 MPV 10.4 Immature Gran % (Auto) 1.2 H Neut % (Auto) 75.2 H Lymph % (Auto) 10.8 L [place] % (Auto) 7.4 Eos % (Auto) 5.0 H Baso % (Auto) 0.4 Lymph # (Auto) 1.1 L [place] # (Auto) 0.8 Eos # (Auto) 0.5 H Baso # (Auto) 0.0 Abs Immat Gran (auto) 0.13 H Absolute Neuts (auto) 7.9 Absolute Nucleated RBC 0.000 Nucleated RBC % (auto) 0.0 Sodium 136 Potassium 4.8 Chloride 102 Carbon Dioxide 30 H Anion Gap 9 L BUN 37 H Creatinine 1.31 Estim Creat Clear Calc 55.0 Estimated GFR 53 POC Glucose 288 H Random Glucose 230 H Calcium 8.8 Total Bilirubin 0.2 AST 26 ALT 17 Alkaline Phosphatase 94 Total Protein 6.9 Albumin 3.3 L Urine Color Urine Appearance Urine pH Ur Specific [place] Urine Protein Urine Glucose (UA) Urine Ketones Urine Blood Urine Nitrite Ur Leukocyte Esterase Urine RBC Urine WBC Ur Squamous Epith Cells Urine Bacteria Hyaline Casts 08/08/25 08/09/25 08/09/25 20:22 06:39 10:49 WBC 9.7 RBC 3.12 L Hgb 8.4 L Hct 28.2 L MCV 90.4 MCH 26.9 L MCHC 29.8 L RDW 17.3 H Plt Count 237 MPV 11.1 Immature Gran % (Auto) 1.1 H Neut % (Auto) 75.5 H Lymph % (Auto) 10.4 L [place] % (Auto) 6.9 Eos % (Auto) 5.7 H Baso % (Auto) 0.4 Lymph # (Auto) 1.0 L [place] # (Auto) 0.7 Eos # (Auto) 0.6 H Baso # (Auto) 0.0 Abs Immat Gran (auto) 0.11 H Absolute Neuts (auto) 7.3 Absolute Nucleated RBC 0.000 Nucleated RBC % (auto) 0.0 Sodium Potassium Chloride Carbon Dioxide Anion Gap BUN Creatinine Estim Creat Clear Calc Estimated GFR POC Glucose 276 H 234 H Random Glucose Calcium Total Bilirubin AST ALT Alkaline Phosphatase Total Protein Albumin Urine Color Urine Appearance Urine pH Ur Specific [place] Urine Protein Urine Glucose (UA) Urine Ketones Urine Blood Urine Nitrite Ur Leukocyte Esterase Urine RBC Urine WBC Ur Squamous Epith Cells Urine Bacteria Hyaline Casts 08/09/25 08/09/25 08/09/25 11:14 16:06 18:00 WBC RBC Hgb Hct MCV MCH MCHC RDW Plt Count MPV Immature Gran % (Auto) Neut % (Auto) Lymph % (Auto) [place] % (Auto) Eos % (Auto) Baso % (Auto) Lymph # (Auto) [place] # (Auto) Eos # (Auto) Baso # (Auto) Abs Immat Gran (auto) Absolute Neuts (auto) Absolute Nucleated RBC Nucleated RBC % (auto) Sodium Potassium Chloride Carbon Dioxide Anion Gap BUN Creatinine Estim Creat Clear Calc Estimated GFR POC Glucose 224 H 219 H Random Glucose Calcium Total Bilirubin AST ALT Alkaline Phosphatase Total Protein Albumin Urine Color Yellow Urine Appearance Clear Urine pH 6.5 Ur Specific [place] 1.020 Urine Protein Negative Urine Glucose (UA) >=1000 H Urine Ketones Negative Urine Blood Negative Urine Nitrite Negative Ur Leukocyte Esterase Negative Urine RBC 0-2 Urine WBC 0-5 Ur Squamous Epith Cells 0-2 Urine Bacteria None Seen Hyaline Casts 0-2 Imaging Radiology Impressions: ITS Impressions Chest X-Ray 07/15/25 15:24 IMPRESSION: Clear lungs. Electronically signed by: Brice Bunch MD 07/15/2025 03:40 PM EDT RP Hip/Pelvis X-Ray 07/19/25 11:20 IMPRESSION: Patchy increased sclerosis which may be due to renal osteodystrophy. Other etiologies including metastatic disease are not excluded. Clinical correlation is recommended. Electronically signed by: Brice Bunch MD 07/19/2025 11:49 AM EDT RP Lumbar Spine X-Ray 07/19/25 11:20 IMPRESSION: Mild degenerative disc disease. Electronically signed by: Brice Bunch MD 07/19/2025 11:50 AM EDT RP Chest X-Ray 07/19/25 11:33 IMPRESSION: Right lower lobe pneumonia. Follow-up is recommended to document resolution. Electronically signed by: Brice Bunch MD 07/19/2025 11:44 AM EDT RP Abdomen/Pelvis CT 07/21/25 15:26 IMPRESSION: Lobulated fat-containing umbilical hernia. Atelectasis versus airspace disease, lung bases. Abundant stool without intestinal obstruction pattern. Simple cyst, left kidney. Degenerative changes both hips with questionable trochanter bursitis. Multilevel thoracolumbar spondylosis resulting in central spinal canal stenosis. Please for to the CT lumbar spine. Fleischner guidelines were followed. 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 Mild narrowing of neural foramina bilaterally at along the lumbar spinal canal. The findings are slightly worse on the right at the T12-L1 disc level there is a right facet joint hypertrophy extending into the neural foramina and a small bony spur extending into right lateral recess at the L2-3 disc level. No abnormal enhancement seen within the lower dorsal or lumbar spinal canal or the region of conus medullaris. If patient has persistent radiculopathy and numbness and tingling in the legs further evaluation with neurology may be helpful. Electronically signed by: Gabo Bush MD 07/22/2025 07:26 AM EDT RP Head CT 08/08/25 14:59 IMPRESSION: No evidence of intracranial hemorrhage. Electronically signed by: Brice Bunch MD 08/08/2025 03:28 PM EST RP Medications Medications Current Medications Acetaminophen (Acetaminophen 325 Mg Tablet) 650 mg PO Q6H PRN PRN Reason: Headache/Pain, Scale 1-10 Last Admin: 08/09/25 18:13 Dose: 650 mg Al Hydroxide/Mg Hydroxide (Magnesium Hydrox/Alum Hydrox 30 Ml Oral.Susp) 30 ml PO Q6H PRN PRN Reason: Heartburn/Nausea Last Admin: 07/25/25 09:57 Dose: 30 ml Albuterol Sulfate (Albuterol Sulfate 90 Mcg 8 Gm Inhaler) 2 puff INHALE RQ4H PRN PRN Reason: SOB/Wheezing Last Admin: 08/08/25 20:27 Dose: 2 puff Aspirin (Aspirin 81 Mg Tab.Chew) 81 mg PO DAILY [facility]IA On Hold: 08/09/25 10:03 Last Admin: 08/09/25 08:01 Dose: 81 mg Atorvastatin Calcium (Atorvastatin Calcium 40 Mg Tablet) 40 mg PO BEDTIME MARCIA Last Admin: 08/08/25 20:28 Dose: 40 mg Benzocaine (Throat Lozenge, Medicated Lozenge) 1 lozenge MUCOUS MEM Q2H PRN PRN Reason: Sore Throat Last Admin: 07/30/25 20:15 Dose: 1 lozenge Clopidogrel Bisulfate (Clopidogrel Bisulfate 75 Mg Tablet) 75 mg PO DAILY [facility] On Hold: 08/09/25 10:03 Comment: dropped hgb Last Admin: 08/09/25 08:02 Dose: 75 mg Cyanocobalamin (Cyanocobalamin (Vitamin B-12) 1,000 Mcg Tablet) 1,000 mcg PO DAILY [facility] Last Admin: 08/09/25 08:01 Dose: 1,000 mcg Empagliflozin (Empagliflozin 10 Mg Tablet) 10 mg PO DAILY [facility] Last Admin: 08/09/25 08:01 Dose: 10 mg Ergocalciferol (Ergocalciferol (Vitamin D2) 1,250 Mcg Capsule) 1,250 mcg PO Fr@0900 [facility] Stop: 09/09/25 09:01 Last Admin: 08/05/25 08:02 Dose: 1,250 mcg Ferrous Sulfate (Ferrous Sulfate 324 Mg Tablet.Dr) 324 mg PO TID [facility] Last Admin: 08/09/25 14:27 Dose: 324 mg Fluticasone Propionate (Fluticasone Propionate Nasal 16 Gm [place]) 1 spray NOSTRIL-B DAILY [facility] Last Admin: 08/09/25 08:06 Dose: 1 spray Fluticasone Propionate (Fluticasone Propionate Nasal 16 Gm [place]) 1 spray NOSTRIL-B DAILY [facility] Last Admin: 08/09/25 14:53 Dose: 1 spray Furosemide (Furosemide 40 Mg Tablet) 40 mg PO DAILY [facility] On Hold: 07/20/25 09:00 Furosemide (Furosemide 20 Mg Tablet) 20 mg PO DAILY [facility]; Protocol Last Admin: 08/09/25 08:02 Dose: 20 mg Gabapentin (Gabapentin 600 Mg Tablet) 600 mg PO TID [facility] Last Admin: 08/09/25 14:27 Dose: 600 mg Guaifenesin (Guaifenesin La 600 Mg Tab.Er.12h) 600 mg PO BID [facility] Stop: 08/10/25 20:59 Last Admin: 08/09/25 08:01 Dose: 600 mg Insulin Glargine (Insulin Glargine,Hum.Rec.Anlog 100 Unit/Ml 10 Ml Vial) 50 unit SUBCUT BEDTIME [facility] Last Admin: 08/08/25 20:30 Dose: 50 unit Insulin Glargine (Insulin Glargine,Hum.Rec.Anlog 100 Unit/Ml 10 Ml Vial) 15 unit SUBCUT DAILY [facility] Last Admin: 08/09/25 08:00 Dose: 15 unit Insulin Human Lispro (Insulin Lispro 100 Unit/Ml 3 Ml Vial) 0 unit SUBCUT QIDACHS [facility]; Protocol Last Admin: 08/09/25 16:22 Dose: 4 unit Lorazepam (Lorazepam 0.5 Mg Tablet) 0.5 mg PO BID PRN PRN Reason: Anxiety Last Admin: 08/05/25 03:14 Dose: 0.5 mg Losartan Potassium (Losartan Potassium 25 Mg Tablet) 25 mg PO DAILY [facility] On Hold: 07/17/25 09:33 Last Admin: 07/17/25 08:19 Dose: 25 mg Magnesium Hydroxide (Milk Of Magnesia 30 Ml Oral.Susp) 30 ml PO DAILY PRN PRN Reason: Constipation Melatonin (Melatonin 3 Mg Tablet) 6 mg PO BEDTIME [facility] Last Admin: 08/08/25 20:28 Dose: 6 mg Metoprolol Succinate (Metoprolol Succinate Er 50 Mg Tab.Er.24h) 50 mg PO DAILY [facility] Last Admin: 08/09/25 08:01 Dose: 50 mg Montelukast Sodium (Montelukast Sodium 10 Mg Tablet) 10 mg PO BEDTIME [facility] Last Admin: 08/08/25 20:29 Dose: 10 mg Pantoprazole Sodium (Pantoprazole Sodium 20 Mg Tablet.Dr) 40 mg PO DAILY [facility] Last Admin: 08/09/25 08:02 Dose: 40 mg Polyethylene Glycol (Polyethylene Glycol 3350 17 Gm Powd.Pack) 17 gm PO DAILY PRN PRN Reason: Constipation Risperidone (Risperidone 1 Mg Tablet) 1 mg PO BID [facility] Last Admin: 08/09/25 08:02 Dose: 1 mg Sodium Chloride (Sodium Chloride 0.65 % Nasal 44 Ml Sprbtl) 1 spray NOSTRIL-B Q1H PRN PRN Reason: Nasal congestion Last Admin: 08/07/25 18:20 Dose: 1 spray Tamsulosin HCl (Tamsulosin Hcl 0.4 Mg Capsule) 0.4 mg PO BEDTIME [facility] Last Admin: 08/08/25 20:29 Dose: 0.4 mg Thiamine HCl (Thiamine Hcl 100 Mg Tablet) 100 mg PO DAILY [facility] Last Admin: 08/09/25 08:01 Dose: 100 mg Tiotropium Jackson (Tiotropium Jackson 2.5 Mcg 1 Puff/2.5 Mcg Mist.Inhal) 2 puff INHALE RDAILY [facility] Last Admin: 08/09/25 08:02 Dose: 2 puff Tizanidine HCl (Tizanidine Hcl 4 Mg Tablet) 2 mg PO BEDTIME [facility] Last Admin: 08/08/25 20:29 Dose: 2 mg Tramadol HCl (Tramadol Hcl 50 Mg Tablet) 50 mg PO Q6H PRN PRN Reason: severe left hip pain Last Admin: 08/07/25 01:49 EST Dose: 50 mg Trazodone HCl (Trazodone Hcl 50 Mg Tablet) 50 mg PO BEDTIME MRX1 PRN PRN Reason: Insomnia Last Admin: 08/05/25 21:39 Dose: 50 mg Allergies Allergies Allergy/AdvReac Type Severity Reaction Status Date / Time Penicillins (PCN) AdvReac Unknown Verified 07/14/25 14:00 Assessment & Plan Assessment & Plan (1) MDD (major depressive disorder), recurrent, severe, with psychosis: Status: Acute Code(s): F33.3 - Major depressive disorder, recurrent, severe with psychotic symptoms (2) RLL pneumonia: Status: Acute Code(s): J18.9 - Pneumonia, unspecified organism (3) Acute kidney injury superimposed on stage 3b chronic kidney disease: Status: Acute Code(s): N17.9 - Acute kidney failure, unspecified; N18.32 - Chronic kidney disease, stage 3b Plan Mr. Eden is a 75 year-old male who was initially brought to [facility] via EMS [place] [address] [place] police after he was seen in the park inflicting laceration on left hand. No stitches required. He continued to self harm while in the ED. He reports he is hearing voices (reports male voice saying I want to see blood repeatedly), which then led to him acting on the voices thinking it may quiet them down. Although he endorses depressed mood in context of not having stable place to live and passive SI, he reports he does not want to but can't help if voices are ongoing. He reports he is not hearing voices now. We discussed risks, benefits and alternative treatment options. He agreed to start risperidone 1mg po BID. Hospital course: 07/19 continue tx. consult to hospitalist- left hip pain. no fall or injury. Updraft nebulizer as needed Patient with a history of asthma, not on any maintenance meds. Will start Spiriva 07/20: Patient found sitting on his bed with his feet on the floor and arms around his walker. He is irritable and tearful. He reports severe pain to his left hip. He rates his pain as 7/10 on the pain scale. Tramadol was increased to 50 mg Q6H as needed this morning. Patient repeatedly refused pain medication tramadol that his nurse offered at bedside. He eventually took the medication after intervention/education about his pain and treatment modalities by this provider. He denies anxiety or depression. He denies SI/HI/AH/VH. Continue current treatment regimen. PT consult made. 07/21: Reports 4/10 lower back and left hip pain. Cheerful and socializing with peers. Prednisone 40 mg daily x5 days ordered for pain. Continue current treatment regimen. [place] Hospitalist notes she would order more imaging for musculoskeletal pain. 07/22/25: Meet with patient in the presence of director of marketing communications in sensory room. Patient reports bearable pain on left buttock area, rated pain 2/20. Report he has some happy tears today after talking to his granddaughter who is 5 years as she prays for him to be better to be home soon with family. Report mood and sleep/appetite are good. Denies anxiety/depression or safety concern. He says he would rather stay in [place] instead of returning to [place]. Report that he can stay with her granddaughter who is 48 y.o in [place]. Explained to patient that he may not get good benefits for health insurance as he has not been here in [place] in a good period of time. Report he has been here more than 3 months. Patient is aware of potential family meeting next week on Friday at 1300 virtually and discharge to follow after. VSs stable, no SOB, O2Sat this morning 92% but improved later on of the day. Ambulate with wheelchair. Visbile, sociall appropriately with peers and staff and attended groups. 07/23/25: Patient slept for 5 hours, medication compliant, no side effects. He is reasonable, social and appropriate. Reports singing he people's vehicles saw about the pig/pork meat. Denies safety concerns. He was not happy regarding the roommate who was snoring loudly, and was not quiet at night which interfere with his sleep. Encourage patient to to use ear plugs she sees if they are helpful. Blood pressure is fluctuated. We will continue to monitor. Ambulating with a walker. Pain is under control. 07/24/25: Patient slept through the night, was compliant with medications, but not compliant with diabetic protocol. Patient has not care for his diet, blood sugar continued to be high, received coverage. Nursing reported the patient was dancing yesterday but has a tantrum moment over food for dinner yesterday, he threw the walker away which was taken away from the patient for safety issues. Patient requests the walker, explained to patient reason why he can not get walker. He walked with normal steady gait. Reports the pain on the hip is improving. Denies safety concerns. Continued to confirm that he wants to stay in [place]. Reported that his granddaughter will come in in person to have a meeting this week. Denies depression or anxiety, sleep is improving. Changing from 5 to 15 minutes safety checks 07/25/25:Patient slept well, compliant with medication. Denies side effects. POC remains high, asymptomatic, received coverage per Protocol with extra 4 unit of Insulin prior dinner. Denies pain, walking with steady gait. Denies anxiety/depression. Denies SI/SIB/HI/AVH. Patient reports that he has been in this country for 10 [place]. Confirm he wants to stay in [place]. Do not want to return to [place]. Per EDITH, meeting with family went well- virtual. Patient will return to [place]. SW will work on aftercare plan and FLU appointment. 07/26/25: In person Nut Picker utilized. Reports improve in sleep, , medication compliant, denies safety concerns, denies depression and anxiety. Denies pain. Patient reported that he did not attend to family meeting yesterday. Educate patient on healthy food/fluid choices as his blood sugar was elevated much more higher than normal. He spent sometime napping in his room. No behavior issues. Reports sore throat and headache yesterday. Denies headache this morning but reported that he was coughing at night and has sore throat now. 07/27: Nursing also reports that the patient's sugar significantly increased while on prednisone, but has been trending down. Blood glucose in the past 2 days between 413 and 291. Continue current treatment regimen. 07/28: He reports ?mild? sore throat which started this morning. No associated symptoms. Continue current treatment regimen. 07/29/25: In-person ink technician presence during want to on assessment. Patient reports slept okay last night, appetite good. Denies side effects from medications. Denies anxiety or depression. Sound having sore throat. Reported that fell last night and he has his head badly to the wall. Per nursing, patient lowered himself to the floor. He was irritable agitated at times yesterday. Refused MiraLax this morning. Reports head take 2/10 where he hit the wall yesterday. Patient having questioned regarding when he is discharged. Informed the patient that criminal justice social worker is working on sending the referral out. Pending results. 07/30: Chest XR pending. Continue current medications. 07/31: continue current management and treatment plan. 08/01/25: Interpretive, criminal justice social worker, and this provider met with patient in dining area. Patient reports slept well, feeling rested, no appetite issues. Denies depression or anxiety. No chest pain. No pain anywhere else except for sore throat which he said his feels better today. Review with patient regarding chest x-ray and EKG which was done over the weekends. Educate patient on healthy food and fluid choices. Patient observed and overheard snoring loudly at dinning table before lunch time. drag out worker continue to send out referral to [facility] facility, especially in [facility]. Patient has been declined from other places so far. Patient also seen hospitalist Friday night regarding elevated of BUN/creatinine which consistently with see CKD, encourage fluid intake 08/02/25: Patient is visible in common areas, intermittently attended groups. Compliant with meds. NO side effects. Denies chest pain/pain/or sore throat. Slept for 7 hours, continue to reinforce on health choices of food and fluid as Blood sugar mostly not controlled as patient EDITH will set up family meeting next week to review with family of discharge plan/placement expectation. Patient was denied from 4 places out of 5 referalls sent out yesterday. CHange Miralax to PRN as patient has been refused it. 08/03/25: Patent report sleep well last night. No change in appetite. Denies depression and anxiety,and safety concerns. He appears tired. Patient reports cough at night and chest pain earlier today- not at the assessment. He sound congestion with sore throat. Nursing later on report patient cough up blood. Hospitalist seen patient, some blood when blowing his nose. Lungs are clear. EDITH working on aftercare appointments and family collateral. New order for Nasal spray PRN and Mucinex 600mg BID x7days. 08/04/25: drag out worker met with patient and this provider explained placement housing situation. Patient asked again what the plan for the future even though after the criminal justice social worker explained with him a couple of minutes before. Nursing reports that patient experience visual hallucination of flow of plans in his room when he is up this morning. Patient confirmed with this provider that he has been seeing that in his room. However, it does not scare him, he loves this hallucination as they are beautiful layne/plans. Reports his sleep was interrupted by his roommate who turned on the lights slept the door, he asked if he can move to another room. Explained to patient that currently we are hopeful and can not move people around. Denies safety concerns, denies depression or anxiety. Educate patient on keeping the skin on left middle finger clean, covered with bandage to prevent infection, and do not peel off the skin around the wound. Also educate patient on healthy choices, control diet so that it does not affect his physical health. Denies pain, reports bowel movement last night. Denies constipation. drag out worker to reach out to family regarding discharge plan. He may not discharge this weekend but early next week. 08/05/25: Patient visible in common areas, report slept well last night. Denies chest pain, continue to improve in cough and congestion. He denies seeing flower plants in his room this morning as VH as he reported yesterday that he has that experience mostly daily. Continue to educate patient on health food and fluid choices and weight control which have positive effects from for his health if they are under control. Education seems to have some effects as his Blood sugar was lower than and improving than it used to be He denies safety concerns now. Have questions regarding when he is discharged which patient was explained to patient by criminal justice social worker ( see EDITH note for more details) regarding discharge after care plan. Will continue to monitor for mental status change. Per nursing, patient slept well, and compliant with medication. Ambulate independently. Intermittently attended groups, less sedated or sleepy during daytime compare to 1-2 days ago. EDITH has been contacted family to collaborate to make sure patient has a safe discharge plan. (As of 08/02 Nadine has Been accepted to [facility] btu the issue at hand is the LEANDRO (Patient Review Instrument) that is a requirement for any [place] SNF) 08/06: Continue current tx plan 08/07: EJ stockings placed for ROWAN. Otherwise continue current tx plan 08/[address]- pt reported head injury last week, increase headaches, changes in vision. pt on two anticoagulants. dropped in Hgb from 10.6 to 8.9. hospitalist consulted- held aspirin and plavix. 08/09 continue tx. Plan: Bilateral hip pain-resolved Patient does not have any radiculopathy, numbness or tingling in his legs. He is ambulating at baseline without any antalgic gait, not using a walker. Denying any hip pain. CKD 3B Stable. Avoid nephrotoxins. Right lower lobe pneumonia Noted on chest x-ray Continue Levaquin 750 daily for 5 days due to PCN allergy Updraft nebulizer as needed Patient with a history of asthma, not on any maintenance meds. Continue Spiriva Improving Laceration to dorsum of left hand and fingers/scratch abrasions to calf. Continue local wound care Wound care following. No evidence of infection Coronary artery disease/history of stroke/CHF/hypertension Continue aspirin, Plavix, atorvastatin and Jardiance. Continue metoprolol 50 mg daily extended release Continue losartan at 25 mg daily, blood pressure is stable Continue Lasix twice daily at reduced dose in pm. Daily weights. Weight stable. 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 Add glargine 10 units in the morning. Recent A1c 9.1 [facility] Continue gabapentin 600 t.i.d. Blood sugars elevated due to prednisone- last dose today Chronic kidney disease Stage 3 B Baseline 1.2 Avoid nephrotoxins Continue to monitor-nephrology consult pending BPH Continue tamsulosin GERD Continue Protonix Vitamin-D deficiency Continue vitamin-D daily Reason for continued inpatient stay Substantial Risk for: inability to function Time Spent With Patient Time: Total time managing care of this patient today ____ minutes.
[2025-08-09 19:56] LABS: Glucose, Whole Blood 232 mg/dL (60-115)
[2025-08-09] MEDS: Insulin Glargine,Hum.rec.anlog 100 UNIT/ML 10 ML VIAL 50 UNIT SUBCUT (20:57)
--- NOTE | 2025-08-09 21:45 | P.EN_ITS ---
Event Note Date of Service: 08/09/25 Event Note: pt complaining of 10/10 RLQ pain. when I came to evaluate pt he was sitting comfortably in a chair eating and did not want to leave his food for examination although he agreed. seen with foreign language interpreter. pt complains of severe sharp 10/10 pain in the RLQ with movement, specifically when he goes to lay down. the pain is not affected by eating. he has had this pain for at least 3 weeks. no urinary sx. recent A/P CT with fat-containing umbilical hernia and constipation. pt reports last BM 3 hours ago. KUB ordered which showed constipation. this pain appears to be musculoskeletal. recommend heat packs, lidocaine patches PRN. Time Spent With Patient Time: Total time managing care of this patient today ____ minutes.
[2025-08-10 05:54] VITALS: BMI 40.5
[2025-08-10 06:40] LABS: Glucose, Whole Blood 168 mg/dL (60-115)
[2025-08-10 07:53] VITALS: BP 127/60; PULSE 82; RESP 18; TEMP 36.4; O2SAT 96
[2025-08-10 08:11] LABS: MANUAL DIFF FLAG NO
[2025-08-10] MEDS: guaiFENesin LA 600 MG TAB.ER.12H PO (08:11)
[2025-08-10] MEDS: Metoprolol Succinate ER 50 MG TAB.ER.24H PO (08:11)
[2025-08-10] MEDS: Ferrous Sulfate 324 MG TABLET.DR PO (08:11)
[2025-08-10] MEDS: Insulin Glargine,Hum.rec.anlog 100 UNIT/ML 10 ML VIAL 15 UNIT SUBCUT (08:12)
[2025-08-10] MEDS: Tiotropium Bromide 2.5 mcg 1 PUFF/2.5 MCG MIST.INHAL 2 PUFF INHALE (08:12)
[2025-08-10] MEDS: Milk of Magnesia 30 ML ORAL.SUSP PO (08:12)
[2025-08-10 08:14] LABS: Hematocrit 27.7 % (42.0-52.0); Hemoglobin 8.4 g/dl (14.0-18.0); Imm Gran Abs Auto 0.12 X10*3/uL (0.00-0.03); Imm Gran Pct Auto 1.2 % (0.0-0.4); Lymphocytes Absolute Auto 0.9 X10*3/uL (1.2-4.9); Mean Corpuscular HGB Conc 30.3 g/dl (31.0-36.0); Mean Corpuscular Hemoglobin 27.4 pg (27.0-33.0); Mean Corpuscular Volume 90.2 fL (80.0-98.0); NRBC Abs Auto 0.000 X10*3/uL (0.0-0.012); NRBC Pct Auto 0.0 /100WBC (0.0-0.2); Platelet Count 224 X10*3/uL (160-400); Red Blood Count 3.07 X10*6/uL (4.60-5.80); White Blood Count 10.1 X10*3/uL (4.8-10.8)
--- NOTE | 2025-08-10 09:53 | P.PNIM_ITS ---
Subjective Subjective Date of Service: 08/10/25 Physical Exam 2 Vital Signs: Vital Signs: Last Vital Signs Temp 97.6 F 08/10/25 07:53 Pulse 82 08/10/25 07:53 Resp 18 08/10/25 07:53 BP 127/60 08/10/25 07:53 Pulse Ox 96 08/10/25 07:53 O2 Del Method Room Air 08/10/25 07:53 BMI result Body Mass Index 40.5 Objective Data Active Medications Acetaminophen (Acetaminophen 325 Mg Tablet) 650 mg PO Q6H PRN PRN Reason: Headache/Pain, Scale 1-10 Last Admin: 08/09/25 18:13 Dose: 650 mg Documented By: HAL Al Hydroxide/Mg Hydroxide (Magnesium Hydrox/Alum Hydrox 30 Ml Oral.Susp) 30 ml PO Q6H PRN PRN Reason: Heartburn/Nausea Last Admin: 07/25/25 09:57 Dose: 30 ml Documented By: HAL Albuterol Sulfate (Albuterol Sulfate 90 Mcg 8 Gm Inhaler) 2 puff INHALE RQ4H PRN PRN Reason: SOB/Wheezing Last Admin: 08/08/25 20:27 Dose: 2 puff Documented By: LILY Aspirin (Aspirin 81 Mg Tab.Chew) 81 mg PO DAILY MARCIA On Hold: 08/09/25 10:03 Last Admin: 08/09/25 08:01 Dose: 81 mg Documented By: RIGOBERTO Atorvastatin Calcium (Atorvastatin Calcium 40 Mg Tablet) 40 mg PO BEDTIME MARCIA Last Admin: 08/09/25 20:58 Dose: 40 mg Documented By: ITALO Benzocaine (Throat Lozenge, Medicated Lozenge) 1 lozenge MUCOUS MEM Q2H PRN PRN Reason: Sore Throat Last Admin: 07/30/25 20:15 Dose: 1 lozenge Documented By: ESTRELLITA Clopidogrel Bisulfate (Clopidogrel Bisulfate 75 Mg Tablet) 75 mg PO DAILY MARCIA On Hold: 08/09/25 10:03 Comment: dropped hgb Last Admin: 08/09/25 08:02 Dose: 75 mg Documented By: RIGOBERTO Cyanocobalamin (Cyanocobalamin (Vitamin B-12) 1,000 Mcg Tablet) 1,000 mcg PO DAILY [facility] Last Admin: 08/10/25 08:11 Dose: 1,000 mcg Documented By: RIGOBERTO Empagliflozin (Empagliflozin 10 Mg Tablet) 10 mg PO DAILY [facility] Last Admin: 08/10/25 08:11 Dose: 10 mg Documented By: RIGOBERTO Ergocalciferol (Ergocalciferol (Vitamin D2) 1,250 Mcg Capsule) 1,250 mcg PO Fr@0900 [facility] Stop: 09/09/25 09:01 Last Admin: 08/05/25 08:02 Dose: 1,250 mcg Documented By: RIGOBERTO Ferrous Sulfate (Ferrous Sulfate 324 Mg Tablet.Dr) 324 mg PO TID [facility] Last Admin: 08/10/25 08:11 Dose: 324 mg Documented By: RIGOBERTO Fluticasone Propionate (Fluticasone Propionate Nasal 16 Gm [place]) 1 spray NOSTRIL-B DAILY [facility] Last Admin: 08/10/25 08:11 Dose: 1 spray Documented By: RIGOBERTO Fluticasone Propionate (Fluticasone Propionate Nasal 16 Gm [place]) 1 spray NOSTRIL-B DAILY [facility] Last Admin: 08/10/25 08:45 Dose: Not Given Documented By: RIGOBERTO Non-Admin Reason: Patient Refused Furosemide (Furosemide 40 Mg Tablet) 40 mg PO DAILY [facility] On Hold: 07/20/25 09:00 Furosemide (Furosemide 20 Mg Tablet) 20 mg PO DAILY [facility]; Protocol Last Admin: 08/10/25 08:11 Dose: 20 mg Documented By: RIGOBERTO Gabapentin (Gabapentin 600 Mg Tablet) 600 mg PO TID [facility] Last Admin: 08/10/25 08:11 Dose: 600 mg Documented By: RIGOBERTO Guaifenesin (Guaifenesin La 600 Mg Tab.Er.12h) 600 mg PO BID [facility] Stop: 08/10/25 20:59 Last Admin: 08/10/25 08:11 Dose: 600 mg Documented By: RIGOBERTO Insulin Glargine (Insulin Glargine,Hum.Rec.Anlog 100 Unit/Ml 10 Ml Vial) 50 unit SUBCUT BEDTIME [facility] Last Admin: 08/09/25 20:57 Dose: 50 unit Documented By: ITALO Insulin Glargine (Insulin Glargine,Hum.Rec.Anlog 100 Unit/Ml 10 Ml Vial) 15 unit SUBCUT DAILY [facility] Last Admin: 08/10/25 08:12 Dose: 15 unit Documented By: RIGOBERTO Insulin Human Lispro (Insulin Lispro 100 Unit/Ml 3 Ml Vial) 0 unit SUBCUT QIDACHS [facility]; Protocol Last Admin: 08/10/25 07:42 Dose: 2 unit Documented By: RIGOBERTO Lidocaine (Lidocaine 4 % Patch Adh..Patch) 1 patch TRANSDERMA DAILY PRN; Protocol PRN Reason: R flank pain Lorazepam (Lorazepam 0.5 Mg Tablet) 0.5 mg PO BID PRN PRN Reason: Anxiety Last Admin: 08/05/25 03:14 Dose: 0.5 mg Documented By: LILY Losartan Potassium (Losartan Potassium 25 Mg Tablet) 25 mg PO DAILY [facility] On Hold: 07/17/25 09:33 Last Admin: 07/17/25 08:19 Dose: 25 mg Documented By: RUBEN Magnesium Hydroxide (Milk Of Magnesia 30 Ml Oral.Susp) 30 ml PO DAILY PRN PRN Reason: Constipation Last Admin: 08/10/25 08:12 Dose: 30 ml Documented By: RIGOBERTO Melatonin (Melatonin 3 Mg Tablet) 6 mg PO BEDTIME [facility] Last Admin: 08/09/25 20:58 Dose: 6 mg Documented By: ITALO Metoprolol Succinate (Metoprolol Succinate Er 50 Mg Tab.Er.24h) 50 mg PO DAILY [facility] Last Admin: 08/10/25 08:11 Dose: 50 mg Documented By: RIGOBERTO Montelukast Sodium (Montelukast Sodium 10 Mg Tablet) 10 mg PO BEDTIME [facility] Last Admin: 08/09/25 20:57 Dose: 10 mg Documented By: ITALO Pantoprazole Sodium (Pantoprazole Sodium 20 Mg Tablet.Dr) 40 mg PO DAILY [facility] Last Admin: 08/10/25 08:11 Dose: 40 mg Documented By: RIGOBERTO Polyethylene Glycol (Polyethylene Glycol 3350 17 Gm Powd.Pack) 17 gm PO DAILY PRN PRN Reason: Constipation Polyethylene Glycol (Polyethylene Glycol 3350 17 Gm Powd.Pack) 17 gm PO DAILY [facility] Last Admin: 08/10/25 09:30 Dose: 17 gm Documented By: RIGOBERTO Risperidone (Risperidone 1 Mg Tablet) 1 mg PO BID [facility] Last Admin: 08/10/25 08:11 Dose: 1 mg Documented By: RIGOBERTO Sodium Chloride (Sodium Chloride 0.65 % Nasal 44 Ml Sprbtl) 1 spray NOSTRIL-B Q1H PRN PRN Reason: Nasal congestion Last Admin: 08/07/25 18:20 Dose: 1 spray Documented By: CAPO Tamsulosin HCl (Tamsulosin Hcl 0.4 Mg Capsule) 0.4 mg PO BEDTIME [facility] Last Admin: 08/09/25 20:58 Dose: 0.4 mg Documented By: ITALO Thiamine HCl (Thiamine Hcl 100 Mg Tablet) 100 mg PO DAILY [facility] Last Admin: 08/10/25 08:11 Dose: 100 mg Documented By: RIGOBERTO Tiotropium [place] (Tiotropium [place] 2.5 Mcg 1 Puff/2.5 Mcg Mist.Inhal) 2 puff INHALE RDAILY [facility] Last Admin: 08/10/25 08:12 Dose: 2 puff Documented By: RIGOBERTO Tizanidine HCl (Tizanidine Hcl 4 Mg Tablet) 2 mg PO BEDTIME [facility] Last Admin: 08/09/25 20:58 Dose: 2 mg Documented By: ITALO Tramadol HCl (Tramadol Hcl 50 Mg Tablet) 50 mg PO Q6H PRN PRN Reason: severe left hip pain Last Admin: 08/07/25 01:49 EST Dose: 50 mg Documented By: MANDY Trazodone HCl (Trazodone Hcl 50 Mg Tablet) 50 mg PO BEDTIME MRX1 PRN PRN Reason: Insomnia Last Admin: 08/05/25 21:39 Dose: 50 mg Documented By: MANDY Labs 08/10/25 08:06 08/08/25 14:04 Labs: Laboratory Results - last 24 hr 08/09/25 08/09/25 08/09/25 10:49 11:14 16:06 MCV 90.4 MCH 26.9 L MCHC 29.8 L RDW 17.3 H Plt Count 237 MPV 11.1 Immature Gran % (Auto) 1.1 H Neut % (Auto) 75.5 H Lymph % (Auto) 10.4 L Alexander % (Auto) 6.9 Eos % (Auto) 5.7 H Baso % (Auto) 0.4 Lymph # (Auto) 1.0 L Alexander # (Auto) 0.7 Eos # (Auto) 0.6 H Baso # (Auto) 0.0 Abs Immat Gran (auto) 0.11 H Absolute Neuts (auto) 7.3 Absolute Nucleated RBC 0.000 Nucleated RBC % (auto) 0.0 POC Glucose 224 H 219 H Urine Color Urine Appearance Urine pH Ur Specific [place] Urine Protein Urine Glucose (UA) Urine Ketones Urine Blood Urine Nitrite Ur Leukocyte Esterase Urine RBC Urine WBC Ur Squamous Epith Cells Urine Bacteria Hyaline Casts 08/09/25 08/09/25 08/10/25 18:00 19:53 06:08 MCV MCH MCHC RDW Plt Count MPV Immature Gran % (Auto) Neut % (Auto) Lymph % (Auto) Alexander % (Auto) Eos % (Auto) Baso % (Auto) Lymph # (Auto) Alexander # (Auto) Eos # (Auto) Baso # (Auto) Abs Immat Gran (auto) Absolute Neuts (auto) Absolute Nucleated RBC Nucleated RBC % (auto) POC Glucose 232 H 168 H Urine Color Yellow Urine Appearance Clear Urine pH 6.5 Ur Specific [place] 1.020 Urine Protein Negative Urine Glucose (UA) >=1000 H Urine Ketones Negative Urine Blood Negative Urine Nitrite Negative Ur Leukocyte Esterase Negative Urine RBC 0-2 Urine WBC 0-5 Ur Squamous Epith Cells 0-2 Urine Bacteria None Seen Hyaline Casts 0-2 08/10/25 08:06 MCV 90.2 MCH 27.4 MCHC 30.3 L RDW 17.4 H Plt Count 224 MPV 10.6 Immature Gran % (Auto) 1.2 H Neut % (Auto) 76.6 H Lymph % (Auto) 9.1 L Alexander % (Auto) 7.2 Eos % (Auto) 5.4 H Baso % (Auto) 0.5 Lymph # (Auto) 0.9 L Alexander # (Auto) 0.7 Eos # (Auto) 0.5 H Baso # (Auto) 0.1 Abs Immat Gran (auto) 0.12 H Absolute Neuts (auto) 7.7 Absolute Nucleated RBC 0.000 Nucleated RBC % (auto) 0.0 POC Glucose Urine Color Urine Appearance Urine pH Ur Specific [place] Urine Protein Urine Glucose (UA) Urine Ketones Urine Blood Urine Nitrite Ur Leukocyte Esterase Urine RBC Urine WBC Ur Squamous Epith Cells Urine Bacteria Hyaline Casts Assessment and Plan (1) RLL pneumonia: Start date: 08/10/25 Status: Acute Assessment and Plan: Patient was seen in follow up for anemia, dysuria and reports of right groin pain. Patient punched a wall, subsequently had x-ray of his right hand which was negative. Patient also had a KUB which demonstrated constipation but no other acute abnormalities. Labs this morning with no leukocytosis. Anemia persists. Patient's baseline hemoglobin 10.6 prior to admission. Recently started on iron. We will obtain iron studies. Guaiac stool times one. On exam patient denies any groin pain, denies any abdominal pain, denies any chest pain. Reports baseline shortness of breath. Stable sitting at table in no apparent distress. Plan 75-year-old male with past medical history listed below is admitted to inpatient [facility] for continued care after he presented to the hospital with self- harming behaviors and depression. Depression with self harming behavior Per psych team Punched a wall last evening, no evidence of fracture. COPD/Nasal congestion/asthma Updraft nebulizer as needed. Normal saline to bilateral nares Q 1 hour p.r.n. Continue Spiriva Coronary artery disease/history of stroke/CHF/hypertension Continue aspirin, Plavix, atorvastatin and Jardiance. Continue metoprolol 50 mg daily extended release Continue losartan at 25 mg daily, blood pressure is stable Continue Lasix twice daily at reduced dose in pm. Daily weights. Weight stable. 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 Glargine 15 units in a.m. 50 units in p.m. Recent A1c 9.1 Can consider starting Trulicity outpatient Continue gabapentin 600 t.i.d. Chronic kidney disease Stage 3B Stable 1.31 Avoid nephrotoxins Continue to monitor-nephrology consult pending BPH Continue tamsulosin GERD Continue Protonix Anemia Baseline 33.5 and 10.6 prior to admit We will check iron studies, B12 and folate Continue ferrous sulfate Guaiac stool x1 Vitamin-D deficiency Continue vitamin-D daily Thank you for allowing me to participate in the care of this patient. Will follow with you, please notify medical provider with any changes in condition or concerns. Quality Stroke Does the patient have a stroke diagnosis?: No VTE Prior VTE?: No VTE Risk Level:: Medical - low VTE Device Contraindication: Treatment Not Indicated VTE Drug Contraindication: N/A - Med Ordered
[2025-08-10 11:18] LABS: Glucose, Whole Blood 202 mg/dL (60-115)
--- NOTE | 2025-08-10 14:21 | P.PNPSI_ITS ---
Subjective Subjective Date of Service: 08/10/25 Reason For Visit: Depression Subjective Notes: Conditional Voluntary Interim History: Pt slept through the night. he had incident of punching wall in the evening due to having severe abdominal pain on RLQ. Seen by hospitalist. had hand xr- no fractures. He had KUB- constipation noted. thinks pain was musculoskeletal- per hospitalist. Pt denies pain today. Mental Status Exam Mental Status Exam Narrative: Appearance: MO, wearing hospital gown, fair hygiene, in NAD behavior: cooperative Psychomotor: no agitation or retardation noted Speech: clear, normal rate/rhythm/volume, spontaneous TP: linear TC: feeling better in terms of mood, but number of medical concern. Mood: better Affect: congruent SI: none HI: none VH/AH: none Delusions: none Insight/judgment: poor x 2. Memory/cog: alert, oriented x 4. Diagnostics Vital Signs (24Hr): Vital Signs - 24 hr 08/09/25 19:42 08/10/25 07:53 Temperature 98.2 F 97.6 F Pulse Rate 88 82 Respiratory Rate 16 18 Blood Pressure 131/60 127/60 Pulse Oximetry 93 96 Oxygen Delivery Method Room Air Room Air BMI result Body Mass Index 40.5 Labs 08/10/25 08:06 08/08/25 14:04 Labs: Laboratory Results - last 48 hr 08/08/25 08/08/25 08/08/25 14:04 16:11 17:01 WBC 10.6 RBC 3.25 L Hgb 8.9 L Hct 29.3 L MCV 90.2 MCH 27.4 MCHC 30.4 L RDW 17.4 H Plt Count 237 MPV 10.4 Immature Gran % (Auto) 1.2 H Neut % (Auto) 75.2 H Lymph % (Auto) 10.8 L Harney % (Auto) 7.4 Eos % (Auto) 5.0 H Baso % (Auto) 0.4 Lymph # (Auto) 1.1 L Harney # (Auto) 0.8 Eos # (Auto) 0.5 H Baso # (Auto) 0.0 Abs Immat Gran (auto) 0.13 H Absolute Neuts (auto) 7.9 Absolute Nucleated RBC 0.000 Nucleated RBC % (auto) 0.0 Sodium 136 Potassium 4.8 Chloride 102 Carbon Dioxide 30 H Anion Gap 9 L BUN 37 H Creatinine 1.31 Estim Creat Clear Calc 55.0 Estimated GFR 53 POC Glucose 288 H Random Glucose 230 H Calcium 8.8 Total Bilirubin 0.2 AST 26 ALT 17 Alkaline Phosphatase 94 Total Protein 6.9 Albumin 3.3 L Urine Color Urine Appearance Urine pH Ur Specific Anderson Urine Protein Urine Glucose (UA) Urine Ketones Urine Blood Urine Nitrite Ur Leukocyte Esterase Urine RBC Urine WBC Ur Squamous Epith Cells Urine Bacteria Hyaline Casts 08/08/25 08/09/25 08/09/25 20:22 06:39 10:49 WBC 9.7 RBC 3.12 L Hgb 8.4 L Hct 28.2 L MCV 90.4 MCH 26.9 L MCHC 29.8 L RDW 17.3 H Plt Count 237 MPV 11.1 Immature Gran % (Auto) 1.1 H Neut % (Auto) 75.5 H Lymph % (Auto) 10.4 L Harney % (Auto) 6.9 Eos % (Auto) 5.7 H Baso % (Auto) 0.4 Lymph # (Auto) 1.0 L Harney # (Auto) 0.7 Eos # (Auto) 0.6 H Baso # (Auto) 0.0 Abs Immat Gran (auto) 0.11 H Absolute Neuts (auto) 7.3 Absolute Nucleated RBC 0.000 Nucleated RBC % (auto) 0.0 Sodium Potassium Chloride Carbon Dioxide Anion Gap BUN Creatinine Estim Creat Clear Calc Estimated GFR POC Glucose 276 H 234 H Random Glucose Calcium Total Bilirubin AST ALT Alkaline Phosphatase Total Protein Albumin Urine Color Urine Appearance Urine pH Ur Specific Anderson Urine Protein Urine Glucose (UA) Urine Ketones Urine Blood Urine Nitrite Ur Leukocyte Esterase Urine RBC Urine WBC Ur Squamous Epith Cells Urine Bacteria Hyaline Casts 08/09/25 08/09/25 08/09/25 11:14 16:06 18:00 WBC RBC Hgb Hct MCV MCH MCHC RDW Plt Count MPV Immature Gran % (Auto) Neut % (Auto) Lymph % (Auto) Harney % (Auto) Eos % (Auto) Baso % (Auto) Lymph # (Auto) Harney # (Auto) Eos # (Auto) Baso # (Auto) Abs Immat Gran (auto) Absolute Neuts (auto) Absolute Nucleated RBC Nucleated RBC % (auto) Sodium Potassium Chloride Carbon Dioxide Anion Gap BUN Creatinine Estim Creat Clear Calc Estimated GFR POC Glucose 224 H 219 H Random Glucose Calcium Total Bilirubin AST ALT Alkaline Phosphatase Total Protein Albumin Urine Color Yellow Urine Appearance Clear Urine pH 6.5 Ur Specific Anderson 1.020 Urine Protein Negative Urine Glucose (UA) >=1000 H Urine Ketones Negative Urine Blood Negative Urine Nitrite Negative Ur Leukocyte Esterase Negative Urine RBC 0-2 Urine WBC 0-5 Ur Squamous Epith Cells 0-2 Urine Bacteria None Seen Hyaline Casts 0-2 08/09/25 08/10/25 08/10/25 19:53 06:08 08:06 WBC 10.1 RBC 3.07 L Hgb 8.4 L Hct 27.7 L MCV 90.2 MCH 27.4 MCHC 30.3 L RDW 17.4 H Plt Count 224 MPV 10.6 Immature Gran % (Auto) 1.2 H Neut % (Auto) 76.6 H Lymph % (Auto) 9.1 L Harney % (Auto) 7.2 Eos % (Auto) 5.4 H Baso % (Auto) 0.5 Lymph # (Auto) 0.9 L Harney # (Auto) 0.7 Eos # (Auto) 0.5 H Baso # (Auto) 0.1 Abs Immat Gran (auto) 0.12 H Absolute Neuts (auto) 7.7 Absolute Nucleated RBC 0.000 Nucleated RBC % (auto) 0.0 Sodium Potassium Chloride Carbon Dioxide Anion Gap BUN Creatinine Estim Creat Clear Calc Estimated GFR POC Glucose 232 H 168 H Random Glucose Calcium Total Bilirubin AST ALT Alkaline Phosphatase Total Protein Albumin Urine Color Urine Appearance Urine pH Ur Specific Anderson Urine Protein Urine Glucose (UA) Urine Ketones Urine Blood Urine Nitrite Ur Leukocyte Esterase Urine RBC Urine WBC Ur Squamous Epith Cells Urine Bacteria Hyaline Casts 08/10/25 11:10 WBC RBC Hgb Hct MCV MCH MCHC RDW Plt Count MPV Immature Gran % (Auto) Neut % (Auto) Lymph % (Auto) Harney % (Auto) Eos % (Auto) Baso % (Auto) Lymph # (Auto) Harney # (Auto) Eos # (Auto) Baso # (Auto) Abs Immat Gran (auto) Absolute Neuts (auto) Absolute Nucleated RBC Nucleated RBC % (auto) Sodium Potassium Chloride Carbon Dioxide Anion Gap BUN Creatinine Estim Creat Clear Calc Estimated GFR POC Glucose 202 H Random Glucose Calcium Total Bilirubin AST ALT Alkaline Phosphatase Total Protein Albumin Urine Color Urine Appearance Urine pH Ur Specific Anderson Urine Protein Urine Glucose (UA) Urine Ketones Urine Blood Urine Nitrite Ur Leukocyte Esterase Urine RBC Urine WBC Ur Squamous Epith Cells Urine Bacteria Hyaline Casts Imaging Radiology Impressions: ITS Impressions Chest X-Ray 07/15/25 15:24 IMPRESSION: Clear lungs. Electronically signed by: Brice Bunch MD 07/15/2025 03:40 PM EDT RP Hip/Pelvis X-Ray 07/19/25 11:20 IMPRESSION: Patchy increased sclerosis which may be due to renal osteodystrophy. Other etiologies including metastatic disease are not excluded. Clinical correlation is recommended. Electronically signed by: Brice Bunch MD 07/19/2025 11:49 AM EDT RP Lumbar Spine X-Ray 07/19/25 11:20 IMPRESSION: Mild degenerative disc disease. Electronically signed by: Brice Bunch MD 07/19/2025 11:50 AM EDT RP Chest X-Ray 07/19/25 11:33 IMPRESSION: Right lower lobe pneumonia. Follow-up is recommended to document resolution. Electronically signed by: Brice Bunch MD 07/19/2025 11:44 AM EDT RP Abdomen/Pelvis CT 07/21/25 15:26 IMPRESSION: Lobulated fat-containing umbilical hernia. Atelectasis versus airspace disease, lung bases. Abundant stool without intestinal obstruction pattern. Simple cyst, left kidney. Degenerative changes both hips with questionable trochanter bursitis. Multilevel thoracolumbar spondylosis resulting in central spinal canal stenosis. Please for to the CT lumbar spine. Fleischner guidelines were followed. 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 Mild narrowing of neural foramina bilaterally at along the lumbar spinal canal. The findings are slightly worse on the right at the T12-L1 disc level there is a right facet joint hypertrophy extending into the neural foramina and a small bony spur extending into right lateral recess at the L2-3 disc level. No abnormal enhancement seen within the lower dorsal or lumbar spinal canal or the region of conus medullaris. If patient has persistent radiculopathy and numbness and tingling in the legs further evaluation with neurology may be helpful. Electronically signed by: Gabo Bush MD 07/22/2025 07:26 AM EDT RP Head CT 08/08/25 14:59 IMPRESSION: No evidence of intracranial hemorrhage. Electronically signed by: Brice Bunch MD 08/08/2025 03:28 PM EST RP Medications Medications Current Medications Acetaminophen (Acetaminophen 325 Mg Tablet) 650 mg PO Q6H PRN PRN Reason: Headache/Pain, Scale 1-10 Last Admin: 08/09/25 18:13 Dose: 650 mg Al Hydroxide/Mg Hydroxide (Magnesium Hydrox/Alum Hydrox 30 Ml Oral.Susp) 30 ml PO Q6H PRN PRN Reason: Heartburn/Nausea Last Admin: 07/25/25 09:57 Dose: 30 ml Albuterol Sulfate (Albuterol Sulfate 90 Mcg 8 Gm Inhaler) 2 puff INHALE RQ4H PRN PRN Reason: SOB/Wheezing Last Admin: 08/08/25 20:27 Dose: 2 puff Ascorbic Acid (Ascorbic Acid 500 Mg Tablet) 500 mg PO DAILY MARCIA Last Admin: 08/10/25 11:25 Dose: 500 mg Aspirin (Aspirin 81 Mg Tab.Chew) 81 mg PO DAILY MARCIA On Hold: 08/09/25 10:03 Last Admin: 08/09/25 08:01 Dose: 81 mg Atorvastatin Calcium (Atorvastatin Calcium 40 Mg Tablet) 40 mg PO BEDTIME MARCIA Last Admin: 08/09/25 20:58 Dose: 40 mg Benzocaine (Throat Lozenge, Medicated Lozenge) 1 lozenge MUCOUS MEM Q2H PRN PRN Reason: Sore Throat Last Admin: 07/30/25 20:15 Dose: 1 lozenge Capsaicin (Capsaicin 0.025% Cream 60 Gm Tube) 1 appl TOPICAL TID PRN; Protocol PRN Reason: left hand pain Clopidogrel Bisulfate (Clopidogrel Bisulfate 75 Mg Tablet) 75 mg PO DAILY MARCIA On Hold: 08/09/25 10:03 Comment: dropped hgb Last Admin: 08/09/25 08:02 Dose: 75 mg Cyanocobalamin (Cyanocobalamin (Vitamin B-12) 1,000 Mcg Tablet) 1,000 mcg PO DAILY MARCIA Last Admin: 08/10/25 08:11 Dose: 1,000 mcg Empagliflozin (Empagliflozin 10 Mg Tablet) 10 mg PO DAILY [facility] Last Admin: 08/10/25 08:11 Dose: 10 mg Ergocalciferol (Ergocalciferol (Vitamin D2) 1,250 Mcg Capsule) 1,250 mcg PO Fr@0900 [facility] Stop: 09/09/25 09:01 Last Admin: 08/05/25 08:02 Dose: 1,250 mcg Ferrous Sulfate (Ferrous Sulfate 324 Mg Tablet.Dr) 324 mg PO DAILY [facility] Fluticasone Propionate (Fluticasone Propionate Nasal 16 Gm [place]) 1 spray NOSTRIL-B DAILY [facility] Last Admin: 08/10/25 08:11 Dose: 1 spray Fluticasone Propionate (Fluticasone Propionate Nasal 16 Gm [place]) 1 spray NOSTRIL-B DAILY [facility] Last Admin: 08/10/25 08:45 Dose: Not Given Furosemide (Furosemide 40 Mg Tablet) 40 mg PO DAILY [facility] On Hold: 07/20/25 09:00 Furosemide (Furosemide 20 Mg Tablet) 20 mg PO DAILY [facility]; Protocol Last Admin: 08/10/25 08:11 Dose: 20 mg Gabapentin (Gabapentin 600 Mg Tablet) 600 mg PO TID [facility] Last Admin: 08/10/25 08:11 Dose: 600 mg Guaifenesin (Guaifenesin La 600 Mg Tab.Er.12h) 600 mg PO BID [facility] Stop: 08/10/25 20:59 Last Admin: 08/10/25 08:11 Dose: 600 mg Insulin Glargine (Insulin Glargine,Hum.Rec.Anlog 100 Unit/Ml 10 Ml Vial) 50 unit SUBCUT BEDTIME [facility] Last Admin: 08/09/25 20:57 Dose: 50 unit Insulin Glargine (Insulin Glargine,Hum.Rec.Anlog 100 Unit/Ml 10 Ml Vial) 15 unit SUBCUT DAILY [facility] Last Admin: 08/10/25 08:12 Dose: 15 unit Insulin Human Lispro (Insulin Lispro 100 Unit/Ml 3 Ml Vial) 0 unit SUBCUT QIDACHS [facility]; Protocol Last Admin: 08/10/25 11:25 Dose: 4 unit Lidocaine (Lidocaine 4 % Patch Adh..Patch) 1 patch TRANSDERMA DAILY PRN; Protocol PRN Reason: R flank pain Lorazepam (Lorazepam 0.5 Mg Tablet) 0.5 mg PO BID PRN PRN Reason: Anxiety Last Admin: 08/05/25 03:14 Dose: 0.5 mg Losartan Potassium (Losartan Potassium 25 Mg Tablet) 25 mg PO DAILY [facility] On Hold: 07/17/25 09:33 Last Admin: 07/17/25 08:19 Dose: 25 mg Magnesium Hydroxide (Milk Of Magnesia 30 Ml Oral.Susp) 30 ml PO DAILY PRN PRN Reason: Constipation Last Admin: 08/10/25 08:12 Dose: 30 ml Melatonin (Melatonin 3 Mg Tablet) 6 mg PO BEDTIME [facility] Last Admin: 08/09/25 20:58 Dose: 6 mg Metoprolol Succinate (Metoprolol Succinate Er 50 Mg Tab.Er.24h) 50 mg PO DAILY [facility] Last Admin: 08/10/25 08:11 Dose: 50 mg Montelukast Sodium (Montelukast Sodium 10 Mg Tablet) 10 mg PO BEDTIME [facility] Last Admin: 08/09/25 20:57 Dose: 10 mg Pantoprazole Sodium (Pantoprazole Sodium 20 Mg Tablet.Dr) 40 mg PO DAILY [facility] Last Admin: 08/10/25 08:11 Dose: 40 mg Polyethylene Glycol (Polyethylene Glycol 3350 17 Gm Powd.Pack) 17 gm PO DAILY PRN PRN Reason: Constipation Polyethylene Glycol (Polyethylene Glycol 3350 17 Gm Powd.Pack) 17 gm PO DAILY [facility] Last Admin: 08/10/25 09:30 Dose: 17 gm Risperidone (Risperidone 1 Mg Tablet) 1 mg PO BID [facility] Last Admin: 08/10/25 08:11 Dose: 1 mg Sodium Chloride (Sodium Chloride 0.65 % Nasal 44 Ml Sprbtl) 1 spray NOSTRIL-B Q1H PRN PRN Reason: Nasal congestion Last Admin: 08/07/25 18:20 Dose: 1 spray Tamsulosin HCl (Tamsulosin Hcl 0.4 Mg Capsule) 0.4 mg PO BEDTIME [facility] Last Admin: 08/09/25 20:58 Dose: 0.4 mg Thiamine HCl (Thiamine Hcl 100 Mg Tablet) 100 mg PO DAILY [facility] Last Admin: 08/10/25 08:11 Dose: 100 mg Tiotropium Marion (Tiotropium Marion 2.5 Mcg 1 Puff/2.5 Mcg Mist.Inhal) 2 puff INHALE RDAILY [facility] Last Admin: 08/10/25 08:12 Dose: 2 puff Tizanidine HCl (Tizanidine Hcl 4 Mg Tablet) 2 mg PO BEDTIME [facility]ARCIA Last Admin: 08/09/25 20:58 Dose: 2 mg Tramadol HCl (Tramadol Hcl 50 Mg Tablet) 50 mg PO Q6H PRN PRN Reason: severe left hip pain Last Admin: 08/07/25 01:49 EST Dose: 50 mg Trazodone HCl (Trazodone Hcl 50 Mg Tablet) 50 mg PO BEDTIME MRX1 PRN PRN Reason: Insomnia Last Admin: 08/05/25 21:39 Dose: 50 mg Allergies Allergies Allergy/AdvReac Type Severity Reaction Status Date / Time Penicillins (PCN) AdvReac Unknown Verified 07/14/25 14:00 Assessment & Plan Assessment & Plan (1) MDD (major depressive disorder), recurrent, severe, with psychosis: Status: Acute Code(s): F33.3 - Major depressive disorder, recurrent, severe with psychotic symptoms (2) RLL pneumonia: Status: Acute Code(s): J18.9 - Pneumonia, unspecified organism (3) Acute kidney injury superimposed on stage 3b chronic kidney disease: Status: Acute Code(s): N17.9 - Acute kidney failure, unspecified; N18.32 - Chronic kidney disease, stage 3b Plan Mr. Eden is a 75 year-old male who was initially brought to [facility] via EMS on [address] by police after he was seen in the park inflicting laceration on left hand. No stitches required. He continued to self harm while in the ED. He reports he is hearing voices (reports male voice saying I want to see blood repeatedly), which then led to him acting on the voices thinking it may quiet them down. Although he endorses depressed mood in context of not having stable place to live and passive SI, he reports he does not want to but can't help if voices are ongoing. He reports he is not hearing voices now. We discussed risks, benefits and alternative treatment options. He agreed to start risperidone 1mg po BID. Hospital course: 07/19 continue tx. consult to hospitalist- left hip pain. no fall or injury. Updraft nebulizer as needed Patient with a history of asthma, not on any maintenance meds. Will start Spiriva 07/20: Patient found sitting on his bed with his feet on the floor and arms around his walker. He is irritable and tearful. He reports severe pain to his left hip. He rates his pain as 7/10 on the pain scale. Tramadol was increased to 50 mg Q6H as needed this morning. Patient repeatedly refused pain medication tramadol that his nurse offered at bedside. He eventually took the medication after intervention/education about his pain and treatment modalities by this provider. He denies anxiety or depression. He denies SI/HI/AH/VH. Continue current treatment regimen. PT consult made. 07/21: Reports 4/10 lower back and left hip pain. Cheerful and socializing with peers. Prednisone 40 mg daily x5 days ordered for pain. Continue current treatment regimen. [place] Hospitalist notes she would order more imaging for musculoskeletal pain. 07/22/25: Meet with patient in the presence of missile facilities repairer in sensory room. Patient reports bearable pain on left buttock area, rated pain 2/20. Report he has some happy tears today after talking to his granddaughter who is 5 years as she prays for him to be better to be home soon with family. Report mood and sleep/appetite are good. Denies anxiety/depression or safety concern. He says he would rather stay in [place] instead of returning to [place]. Report that he can stay with her granddaughter who is 48 y.o in [place]. Explained to patient that he may not get good benefits for health insurance as he has not been here in [place] in a good period of time. Report he has been here more than 3 months. Patient is aware of potential family meeting next week on Friday at 1300 virtually and discharge to follow after. VSs stable, no SOB, O2Sat this morning 92% but improved later on of the day. Ambulate with wheelchair. Visbile, sociall appropriately with peers and staff and attended groups. 07/23/25: Patient slept for 5 hours, medication compliant, no side effects. He is reasonable, social and appropriate. Reports singing he people's vehicles saw about the pig/pork meat. Denies safety concerns. He was not happy regarding the roommate who was snoring loudly, and was not quiet at night which interfere with his sleep. Encourage patient to to use ear plugs she sees if they are helpful. Blood pressure is fluctuated. We will continue to monitor. Ambulating with a walker. Pain is under control. 07/24/25: Patient slept through the night, was compliant with medications, but not compliant with diabetic protocol. Patient has not care for his diet, blood sugar continued to be high, received coverage. Nursing reported the patient was dancing yesterday but has a tantrum moment over food for dinner yesterday, he threw the walker away which was taken away from the patient for safety issues. Patient requests the walker, explained to patient reason why he can not get walker. He walked with normal steady gait. Reports the pain on the hip is improving. Denies safety concerns. Continued to confirm that he wants to stay in [place]. Reported that his granddaughter will come in in person to have a meeting this week. Denies depression or anxiety, sleep is improving. Changing from 5 to 15 minutes safety checks 07/25/25:Patient slept well, compliant with medication. Denies side effects. POC remains high, asymptomatic, received coverage per Protocol with extra 4 unit of Insulin prior dinner. Denies pain, walking with steady gait. Denies anxiety/depression. Denies SI/SIB/HI/AVH. Patient reports that he has been in this country for 10 years. Confirm he wants to stay in [place]. Do not want to return to [place]. Per EDITH, meeting with family went well- virtual. [place] return to [place]. will work on aftercare plan and FLU appointment. 07/26/25: In person Imaging Analyst utilized. Reports improve in sleep, , medication compliant, denies safety concerns, denies depression and anxiety. Denies pain. Patient reported that he did not attend to family meeting yesterday. Educate patient on healthy food/fluid choices as his blood sugar was elevated much more higher than normal. He spent sometime napping in his room. No behavior issues. Reports sore throat and headache yesterday. Denies headache this morning but reported that he was coughing at night and has sore throat now. 07/27: Nursing also reports that the patient's sugar significantly increased while on prednisone, but has been trending down. Blood glucose in the past 2 days between 413 and 291. Continue current treatment regimen. 07/28: He reports ?mild? sore throat which started this morning. No associated symptoms. Continue current treatment regimen. 07/29/25: In-person pageant director presence during want to on assessment. Patient reports slept okay last night, appetite good. Denies side effects from medications. Denies anxiety or depression. Sound having sore throat. Reported that fell last night and he has his head badly to the wall. Per nursing, patient lowered himself to the floor. He was irritable agitated at times yesterday. Refused MiraLax this morning. Reports head take 2/10 where he hit the wall yesterday. Patient having questioned regarding when he is discharged. Informed the patient that social welfare clerk is working on sending the referral out. Pending results. 07/30: Chest XR pending. Continue current medications. 07/31: continue current management and treatment plan. 08/01/25: Interpretive, social welfare clerk, and this provider met with patient in dining area. Patient reports slept well, feeling rested, no appetite issues. Denies depression or anxiety. No chest pain. No pain anywhere else except for sore throat which he said his feels better today. Review with patient regarding chest x-ray and EKG which was done over the weekends. Educate patient on healthy food and fluid choices. Patient observed and overheard snoring loudly at dinning table before lunch time. leather production worker continue to send out referral to retirement facility, especially in [facility]. Patient has been declined from other places so far. Patient also seen hospitalist Friday night regarding elevated of BUN/creatinine which consistently with see CKD, encourage fluid intake 08/02/25: Patient is visible in common areas, intermittently attended groups. Compliant with meds. NO side effects. Denies chest pain/pain/or sore throat. Slept for 7 hours, continue to reinforce on health choices of food and fluid as Blood sugar mostly not controlled as patient SW will set up family meeting next week to review with family of discharge plan/placement expectation. Patient was denied from 4 places out of 5 referalls sent out yesterday. CHange Miralax to PRN as patient has been refused it. 08/03/25: Patent report sleep well last night. No change in appetite. Denies depression and anxiety,and safety concerns. He appears tired. Patient reports cough at night and chest pain earlier today- not at the assessment. He sound congestion with sore throat. Nursing later on report patient cough up blood. Hospitalist seen patient, some blood when blowing his nose. Lungs are clear. SW working on aftercare appointments and family collateral. New order for Nasal spray PRN and Mucinex 600mg BID x7days. 08/04/25: leather production worker met with patient and this provider explained placement housing situation. Patient asked again what the plan for the future even though after the social welfare clerk explained with him a couple of minutes before. Nursing reports that patient experience visual hallucination of flow of plans in his room when he is up this morning. Patient confirmed with this provider that he has been seeing that in his room. However, it does not scare him, he loves this hallucination as they are beautiful layne/plans. Reports his sleep was interrupted by his roommate who turned on the lights slept the door, he asked if he can move to another room. Explained to patient that currently we are hopeful and can not move people around. Denies safety concerns, denies depression or anxiety. Educate patient on keeping the skin on left middle finger clean, covered with bandage to prevent infection, and do not peel off the skin around the wound. Also educate patient on healthy choices, control diet so that it does not affect his physical health. Denies pain, reports bowel movement last night. Denies constipation. leather production worker to reach out to family regarding discharge plan. He may not discharge this weekend but early next week. 08/05/25: Patient visible in common areas, report slept well last night. Denies chest pain, continue to improve in cough and congestion. He denies seeing flower plants in his room this morning as VH as he reported yesterday that he has that experience mostly daily. Continue to educate patient on health food and fluid choices and weight control which have positive effects from for his health if they are under control. Education seems to have some effects as his Blood sugar was lower than and improving than it used to be He denies safety concerns now. Have questions regarding when he is discharged which patient was explained to patient by social welfare clerk ( see EDITH note for more details) regarding discharge after care plan. Will continue to monitor for mental status change. Per nursing, patient slept well, and compliant with medication. Ambulate independently. Intermittently attended groups, less sedated or sleepy during daytime compare to 1-2 days ago. EDITH has been contacted family to collaborate to make sure patient has a safe discharge plan. (As of 08/02 Nadine has Been accepted to [facility] btu the issue at hand is the LEANDRO (Patient Review Instrument) that is a requirement for any [place] SNF) 08/06: Continue current tx plan 08/07: EJ stockings placed for ROWAN. Otherwise continue current tx plan 08/[address]- pt reported head injury last week, increase headaches, changes in vision. pt on two anticoagulants. dropped in Hgb from 10.6 to 8.9. hospitalist consulted- held aspirin and plavix. 08/09 continue tx. 08/10 psychiatrically stable, pending assessment from provider in [place] to be admitted to SNF- however, family reported they will not pay $300 for assessment. plan to coordinate dc of pt back to granddaughter's house. Plan: Bilateral hip pain-resolved Patient does not have any radiculopathy, numbness or tingling in his legs. He is ambulating at baseline without any antalgic gait, not using a walker. Denying any hip pain. CKD 3B Stable. Avoid nephrotoxins. Right lower lobe pneumonia Noted on chest x-ray Continue Levaquin 750 daily for 5 days due to PCN allergy Updraft nebulizer as needed Patient with a history of asthma, not on any maintenance meds. Continue Spiriva Improving Laceration to dorsum of left hand and fingers/scratch abrasions to calf. Continue local wound care Wound care following. No evidence of infection Coronary artery disease/history of stroke/CHF/hypertension Continue aspirin, Plavix, atorvastatin and Jardiance. Continue metoprolol 50 mg daily extended release Continue losartan at 25 mg daily, blood pressure is stable Continue Lasix twice daily at reduced dose in pm. Daily weights. Weight stable. 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 Add glargine 10 units in the morning. Recent A1c 9.1 Can consider starting Trulicity outpatient Continue gabapentin 600 t.i.d. Blood sugars elevated due to prednisone- last dose today Chronic kidney disease Stage 3 B Baseline 1.2 Avoid nephrotoxins Continue to monitor-nephrology consult pending BPH Continue tamsulosin GERD Continue Protonix Vitamin-D deficiency Continue vitamin-D daily Reason for continued inpatient stay Substantial Risk for: inability to function Time Spent With Patient Time: Total time managing care of this patient today ____ minutes.
[2025-08-10 16:09] LABS: Glucose, Whole Blood 220 mg/dL (60-115)
[2025-08-10 20:00] VITALS: BP 140/63; PULSE 89; RESP 16; TEMP 37.1; O2SAT 92
[2025-08-10 20:32] LABS: Glucose, Whole Blood 335 mg/dL (60-115)
[2025-08-10] MEDS: Insulin Glargine,Hum.rec.anlog 100 UNIT/ML 10 ML VIAL 50 UNIT SUBCUT (21:15)
[2025-08-11] MEDS: Albuterol Sulfate 90 MCG 8 GM INHALER 2 PUFF INHALE (01:30)
[2025-08-11 05:44] LABS: Glucose, Whole Blood 166 mg/dL (60-115)
[2025-08-11 05:55] VITALS: BMI 40.5
[2025-08-11 05:56] VITALS: BMI 41.1
--- NOTE | 2025-08-11 06:25 | PC.NURSE ---
MORNING WEIGHT TODAY NOTED 2 POUND INCREASE FROM PREVIOUS DAY. PRESCRIBER UPDATED.
[2025-08-11 07:53] VITALS: BP 160/65; PULSE 80; RESP 18; TEMP 36.6; O2SAT 91
[2025-08-11] MEDS: Insulin Glargine,Hum.rec.anlog 100 UNIT/ML 10 ML VIAL 15 UNIT SUBCUT (08:08)
[2025-08-11 08:10] LABS: Iron 30 mcg/dL (45-160); Percent Iron Saturation 13 % (15-50); Total Iron Binding Capacity 227 mcg/dL (228-428); Unsaturated Iron Binding 197 ug/dL
[2025-08-11] MEDS: Ferrous Sulfate 324 MG TABLET.DR PO (08:11)
[2025-08-11] MEDS: Metoprolol Succinate ER 50 MG TAB.ER.24H PO (08:11)
[2025-08-11] MEDS: Tiotropium Bromide 2.5 mcg 1 PUFF/2.5 MCG MIST.INHAL 2 PUFF INHALE (08:12)
[2025-08-11 08:25] LABS: Ferritin 69 ng/mL (20-250)
[2025-08-11 08:40] LABS: Folate 9.8 ng/mL (> or = 4.0); Vitamin B12 1233 pg/mL (200-900)
[2025-08-11 11:01] LABS: Glucose, Whole Blood 174 mg/dL (60-115)
[2025-08-11 14:13] VITALS: BMI 41.1
--- NOTE | 2025-08-11 14:46 | HO.PSYCHPN ---
Subjective Subjective Date of Service: 08/11/25 Reason For Visit: Depression Subjective Notes: Conditional Voluntary Interim History: Pt sleeping through the night. He reports doing well and actually feeling better physically. He denies SOB, no cough, no chest pain. Hospitalist following- re: drop in Hgb, CHF. daily weight Psychiatrically pt has been stable. No SI/HI. No VH/AH. Pt not able to pay fee for assessment required in [place]. Medication Compliance: Yes Mental Status Exam Mental Status Exam Narrative: Appearance: MO, wearing hospital gown, fair hygiene, in NAD behavior: cooperative Psychomotor: no agitation or retardation noted Speech: clear, normal rate/rhythm/volume, spontaneous TP: linear TC: feeling better in terms of mood, but number of medical concern. Mood: better Affect: congruent SI: none HI: none VH/AH: none Delusions: none Insight/judgment: poor x 2. Memory/cog: alert, oriented x 4. Diagnostics Vital Signs (24Hr): Vital Signs - 24 hr 08/10/25 20:00 08/11/25 07:53 Temperature 98.8 F 97.9 F Pulse Rate 89 80 Respiratory Rate 16 18 Blood Pressure 140/63 H 160/65 H Pulse Oximetry 92 91 L Oxygen Delivery Method Room Air Room Air BMI result Body Mass Index 41.1 Labs 08/12/25 03:55 08/12/25 03:55 Labs: Laboratory Results - last 48 hr 08/09/25 08/09/25 08/09/25 16:06 18:00 19:53 WBC RBC Hgb Hct MCV MCH MCHC RDW Plt Count MPV Immature Gran % (Auto) Neut % (Auto) Lymph % (Auto) [place] % (Auto) Eos % (Auto) Baso % (Auto) Lymph # (Auto) [place] # (Auto) Eos # (Auto) Baso # (Auto) Abs Immat Gran (auto) Absolute Neuts (auto) Absolute Nucleated RBC Nucleated RBC % (auto) Hold Purple Top POC Glucose 219 H 232 H Iron TIBC % Saturation Unsat Iron Binding Ferritin Vitamin B12 Folate Urine Color Yellow Urine Appearance Clear Urine pH 6.5 Ur Specific [place] 1.020 Urine Protein Negative Urine Glucose (UA) >=1000 H Urine Ketones Negative Urine Blood Negative Urine Nitrite Negative Ur Leukocyte Esterase Negative Urine RBC 0-2 Urine WBC 0-5 Ur Squamous Epith Cells 0-2 Urine Bacteria None Seen Hyaline Casts 0-2 08/10/25 08/10/25 08/10/25 06:08 08:06 11:10 WBC 10.1 RBC 3.07 L Hgb 8.4 L Hct 27.7 L MCV 90.2 MCH 27.4 MCHC 30.3 L RDW 17.4 H Plt Count 224 MPV 10.6 Immature Gran % (Auto) 1.2 H Neut % (Auto) 76.6 H Lymph % (Auto) 9.1 L [place] % (Auto) 7.2 Eos % (Auto) 5.4 H Baso % (Auto) 0.5 Lymph # (Auto) 0.9 L [place] # (Auto) 0.7 Eos # (Auto) 0.5 H Baso # (Auto) 0.1 Abs Immat Gran (auto) 0.12 H Absolute Neuts (auto) 7.7 Absolute Nucleated RBC 0.000 Nucleated RBC % (auto) 0.0 Hold Purple Top POC Glucose 168 H 202 H Iron TIBC % Saturation Unsat Iron Binding Ferritin Vitamin B12 Folate Urine Color Urine Appearance Urine pH Ur Specific [place] Urine Protein Urine Glucose (UA) Urine Ketones Urine Blood Urine Nitrite Ur Leukocyte Esterase Urine RBC Urine WBC Ur Squamous Epith Cells Urine Bacteria Hyaline Casts 08/10/25 08/10/25 08/11/25 16:05 20:28 05:40 WBC RBC Hgb Hct MCV MCH MCHC RDW Plt Count MPV Immature Gran % (Auto) Neut % (Auto) Lymph % (Auto) [place] % (Auto) Eos % (Auto) Baso % (Auto) Lymph # (Auto) [place] # (Auto) Eos # (Auto) Baso # (Auto) Abs Immat Gran (auto) Absolute Neuts (auto) Absolute Nucleated RBC Nucleated RBC % (auto) Hold Purple Top POC Glucose 220 H 335 H 166 H Iron TIBC % Saturation Unsat Iron Binding Ferritin Vitamin B12 Folate Urine Color Urine Appearance Urine pH Ur Specific [place] Urine Protein Urine Glucose (UA) Urine Ketones Urine Blood Urine Nitrite Ur Leukocyte Esterase Urine RBC Urine WBC Ur Squamous Epith Cells Urine Bacteria Hyaline Casts 08/11/25 08/11/25 07:05 10:56 WBC RBC Hgb Hct MCV MCH MCHC RDW Plt Count MPV Immature Gran % (Auto) Neut % (Auto) Lymph % (Auto) [place] % (Auto) Eos % (Auto) Baso % (Auto) Lymph # (Auto) [place] # (Auto) Eos # (Auto) Baso # (Auto) Abs Immat Gran (auto) Absolute Neuts (auto) Absolute Nucleated RBC Nucleated RBC % (auto) Hold Purple Top SEE NOTE POC Glucose 174 H Iron 30 L TIBC 227 L % Saturation 13 L Unsat Iron Binding 197 Ferritin 69 Vitamin B12 1233 H Folate 9.8 Urine Color Urine Appearance Urine pH Ur Specific [place] Urine Protein Urine Glucose (UA) Urine Ketones Urine Blood Urine Nitrite Ur Leukocyte Esterase Urine RBC Urine WBC Ur Squamous Epith Cells Urine Bacteria Hyaline Casts Imaging Radiology Impressions: ITS Impressions Chest X-Ray 07/15/25 15:24 IMPRESSION: Clear lungs. Electronically signed by: Brice Bunch MD 07/15/2025 03:40 PM EDT RP Hip/Pelvis X-Ray 07/19/25 11:20 IMPRESSION: Patchy increased sclerosis which may be due to renal osteodystrophy. Other etiologies including metastatic disease are not excluded. Clinical correlation is recommended. Electronically signed by: Brice Bunch MD 07/19/2025 11:49 AM EDT RP Lumbar Spine X-Ray 07/19/25 11:20 IMPRESSION: Mild degenerative disc disease. Electronically signed by: Brice Bunch MD 07/19/2025 11:50 AM EDT RP Chest X-Ray 07/19/25 11:33 IMPRESSION: Right lower lobe pneumonia. Follow-up is recommended to document resolution. Electronically signed by: Brice Bunch MD 07/19/2025 11:44 AM EDT RP Abdomen/Pelvis CT 07/21/25 15:26 IMPRESSION: Lobulated fat-containing umbilical hernia. Atelectasis versus airspace disease, lung bases. Abundant stool without intestinal obstruction pattern. Simple cyst, left kidney. Degenerative changes both hips with questionable trochanter bursitis. Multilevel thoracolumbar spondylosis resulting in central spinal canal stenosis. Please for to the CT lumbar spine. Fleischner guidelines were followed. 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 Mild narrowing of neural foramina bilaterally at along the lumbar spinal canal. The findings are slightly worse on the right at the T12-L1 disc level there is a right facet joint hypertrophy extending into the neural foramina and a small bony spur extending into right lateral recess at the L2-3 disc level. No abnormal enhancement seen within the lower dorsal or lumbar spinal canal or the region of conus medullaris. If patient has persistent radiculopathy and numbness and tingling in the legs further evaluation with neurology may be helpful. Electronically signed by: Gabo Bush MD 07/22/2025 07:26 AM EDT RP Head CT 08/08/25 14:59 IMPRESSION: No evidence of intracranial hemorrhage. Electronically signed by: Brice Bunch MD 08/08/2025 03:28 PM EST RP Medications Medications Current Medications Acetaminophen (Acetaminophen 325 Mg Tablet) 650 mg PO Q6H PRN PRN Reason: Headache/Pain, Scale 1-10 Last Admin: 08/09/25 18:13 Dose: 650 mg Al Hydroxide/Mg Hydroxide (Magnesium Hydrox/Alum Hydrox 30 Ml Oral.Susp) 30 ml PO Q6H PRN PRN Reason: Heartburn/Nausea Last Admin: 07/25/25 09:57 Dose: 30 ml Albuterol Sulfate (Albuterol Sulfate 90 Mcg 8 Gm Inhaler) 2 puff INHALE RQ4H PRN PRN Reason: SOB/Wheezing Last Admin: 08/11/25 01:30 Dose: 2 puff Ascorbic Acid (Ascorbic Acid 500 Mg Tablet) 500 mg PO DAILY MARCIA Last Admin: 08/11/25 08:11 Dose: 500 mg Aspirin (Aspirin 81 Mg Tab.Chew) 81 mg PO DAILY MARCIA On Hold: 08/09/25 10:03 Last Admin: 08/09/25 08:01 Dose: 81 mg Atorvastatin Calcium (Atorvastatin Calcium 40 Mg Tablet) 40 mg PO BEDTIME MARCIA Last Admin: 08/10/25 21:17 Dose: 40 mg Benzocaine (Throat Lozenge, Medicated Lozenge) 1 lozenge MUCOUS MEM Q2H PRN PRN Reason: Sore Throat Last Admin: 07/30/25 20:15 Dose: 1 lozenge Capsaicin (Capsaicin 0.025% Cream 60 Gm Tube) 1 appl TOPICAL TID PRN; Protocol PRN Reason: left hand pain Clopidogrel Bisulfate (Clopidogrel Bisulfate 75 Mg Tablet) 75 mg PO DAILY [facility] On Hold: 08/09/25 10:03 Comment: dropped hgb Last Admin: 08/09/25 08:02 Dose: 75 mg Cyanocobalamin (Cyanocobalamin (Vitamin B-12) 1,000 Mcg Tablet) 1,000 mcg PO DAILY [facility] Last Admin: 08/11/25 08:10 Dose: 1,000 mcg Docusate Sodium (Docusate Sodium 100 Mg Capsule) 100 mg PO BID MARCIA Last Admin: 08/11/25 08:10 Dose: 100 mg Empagliflozin (Empagliflozin 10 Mg Tablet) 10 mg PO DAILY [facility] Last Admin: 08/11/25 08:10 Dose: 10 mg Ergocalciferol (Ergocalciferol (Vitamin D2) 1,250 Mcg Capsule) 1,250 mcg PO Fr@0900 [facility] Stop: 09/09/25 09:01 Last Admin: 08/05/25 08:02 Dose: 1,250 mcg Ferrous Sulfate (Ferrous Sulfate 324 Mg Tablet.Dr) 324 mg PO DAILY [facility] Last Admin: 08/11/25 08:11 Dose: 324 mg Fluticasone Propionate (Fluticasone Propionate Nasal 16 Gm Stewart) 1 spray NOSTRIL-B DAILY [facility] Last Admin: 08/11/25 08:18 Dose: 1 spray Fluticasone Propionate (Fluticasone Propionate Nasal 16 Gm Stewart) 1 spray NOSTRIL-B DAILY [facility] Last Admin: 08/11/25 09:03 Dose: 1 spray Furosemide (Furosemide 40 Mg Tablet) 40 mg PO DAILY MARCIA On Hold: 07/20/25 09:00 Furosemide (Furosemide 20 Mg Tablet) 20 mg PO DAILY [facility]; Protocol Last Admin: 08/11/25 08:10 Dose: 20 mg Gabapentin (Gabapentin 600 Mg Tablet) 600 mg PO TID [facility] Last Admin: 08/11/25 08:10 Dose: 600 mg Insulin Glargine (Insulin Glargine,Hum.Rec.Anlog 100 Unit/Ml 10 Ml Vial) 50 unit SUBCUT BEDTIME MARCIA Last Admin: 08/10/25 21:15 Dose: 50 unit Insulin Glargine (Insulin Glargine,Hum.Rec.Anlog 100 Unit/Ml 10 Ml Vial) 15 unit SUBCUT DAILY [facility] Last Admin: 08/11/25 08:08 Dose: 15 unit Insulin Human Lispro (Insulin Lispro 100 Unit/Ml 3 Ml Vial) 0 unit SUBCUT QIDACHS [facility]; Protocol Last Admin: 08/11/25 11:53 Dose: 2 unit Lidocaine (Lidocaine 4 % Patch Adh..Patch) 1 patch TRANSDERMA DAILY PRN; Protocol PRN Reason: R flank pain Lorazepam (Lorazepam 0.5 Mg Tablet) 0.5 mg PO BID PRN PRN Reason: Anxiety Last Admin: 08/11/25 01:38 Dose: 0.5 mg Losartan Potassium (Losartan Potassium 25 Mg Tablet) 25 mg PO DAILY MARCIA On Hold: 07/17/25 09:33 Last Admin: 07/17/25 08:19 Dose: 25 mg Magnesium Hydroxide (Milk Of Magnesia 30 Ml Oral.Susp) 30 ml PO DAILY PRN PRN Reason: Constipation Last Admin: 08/10/25 08:12 Dose: 30 ml Melatonin (Melatonin 3 Mg Tablet) 6 mg PO BEDTIME [facility] Last Admin: 08/10/25 21:18 Dose: 6 mg Metoprolol Succinate (Metoprolol Succinate Er 50 Mg Tab.Er.24h) 50 mg PO DAILY [facility] Last Admin: 08/11/25 08:11 Dose: 50 mg Montelukast Sodium (Montelukast Sodium 10 Mg Tablet) 10 mg PO BEDTIME MARCIA Last Admin: 08/10/25 21:17 Dose: 10 mg Pantoprazole Sodium (Pantoprazole Sodium 20 Mg Tablet.Dr) 40 mg PO DAILY [facility] Last Admin: 08/11/25 08:12 Dose: 40 mg Polyethylene Glycol (Polyethylene Glycol 3350 17 Gm Powd.Pack) 17 gm PO DAILY PRN PRN Reason: Constipation Polyethylene Glycol (Polyethylene Glycol 3350 17 Gm Powd.Pack) 17 gm PO DAILY [facility] Last Admin: 08/11/25 10:05 Dose: Not Given Risperidone (Risperidone 1 Mg Tablet) 1 mg PO BID [facility] Last Admin: 08/11/25 08:11 Dose: 1 mg Senna (Sennosides 8.6 Mg Tablet) 8.6 mg PO BEDTIME [facility] Last Admin: 08/10/25 21:17 Dose: 8.6 mg Sodium Chloride (Sodium Chloride 0.65 % Nasal 44 Ml Sprbtl) 1 spray NOSTRIL-B Q1H PRN PRN Reason: Nasal congestion Last Admin: 08/07/25 18:20 Dose: 1 spray Tamsulosin HCl (Tamsulosin Hcl 0.4 Mg Capsule) 0.4 mg PO BEDTIME [facility] Last Admin: 08/10/25 21:17 Dose: 0.4 mg Thiamine HCl (Thiamine Hcl 100 Mg Tablet) 100 mg PO DAILY [facility] Last Admin: 08/11/25 08:12 Dose: 100 mg Tiotropium [place] (Tiotropium [place] 2.5 Mcg 1 Puff/2.5 Mcg Mist.Inhal) 2 puff INHALE RDAILY [facility] Last Admin: 08/11/25 08:12 Dose: 2 puff Tizanidine HCl (Tizanidine Hcl 4 Mg Tablet) 2 mg PO BEDTIME [facility] Last Admin: 08/10/25 21:16 Dose: 2 mg Tramadol HCl (Tramadol Hcl 50 Mg Tablet) 50 mg PO Q6H PRN PRN Reason: severe left hip pain Last Admin: 08/11/25 01:38 Dose: 50 mg Trazodone HCl (Trazodone Hcl 50 Mg Tablet) 50 mg PO BEDTIME MRX1 PRN PRN Reason: Insomnia Last Admin: 08/05/25 21:39 Dose: 50 mg Allergies Allergies Allergy/AdvReac Type Severity Reaction Status Date / Time Penicillins (PCN) AdvReac Unknown Verified 07/14/25 14:00 Assessment & Plan Assessment & Plan (1) MDD (major depressive disorder), recurrent, severe, with psychosis: Status: Acute Code(s): F33.3 - Major depressive disorder, recurrent, severe with psychotic symptoms (2) Acute kidney injury superimposed on stage 3b chronic kidney disease: Status: Acute Code(s): N17.9 - Acute kidney failure, unspecified; N18.32 - Chronic kidney disease, stage 3b (3) RLL pneumonia: Status: Acute Code(s): J18.9 - Pneumonia, unspecified organism Plan Mr. Eden is a 75 year-old male who was initially brought to [facility] via EMS on [address] by police after he was seen in the park inflicting laceration on left hand. No stitches required. He continued to self harm while in the ED. He reports he is hearing voices (reports male voice saying I want to see blood repeatedly), which then led to him acting on the voices thinking it may quiet them down. Although he endorses depressed mood in context of not having stable place to live and passive SI, he reports he does not want to but can't help if voices are ongoing. He reports he is not hearing voices now. We discussed risks, benefits and alternative treatment options. He agreed to start risperidone 1mg po BID. Hospital course: 07/19 continue tx. consult to hospitalist- left hip pain. no fall or injury. Updraft nebulizer as needed Patient with a history of asthma, not on any maintenance meds. Will start Spiriva 07/20: Patient found sitting on his bed with his feet on the floor and arms around his walker. He is irritable and tearful. He reports severe pain to his left hip. He rates his pain as 7/10 on the pain scale. Tramadol was increased to 50 mg Q6H as needed this morning. Patient repeatedly refused pain medication tramadol that his nurse offered at bedside. He eventually took the medication after intervention/education about his pain and treatment modalities by this provider. He denies anxiety or depression. He denies SI/HI/AH/VH. Continue current treatment regimen. PT consult made. 07/21: Reports 4/10 lower back and left hip pain. Cheerful and socializing with peers. Prednisone 40 mg daily x5 days ordered for pain. Continue current treatment regimen. [place] Hospitalist notes she would order more imaging for musculoskeletal pain. 07/22/25: Meet with patient in the presence of sausage smoker in sensory room. Patient reports bearable pain on left buttock area, rated pain 2/20. Report he has some happy tears today after talking to his granddaughter who is 5 years as she prays for him to be better to be home soon with family. Report mood and sleep/appetite are good. Denies anxiety/depression or safety concern. He says he would rather stay in [place] instead of returning to [place]. Report that he can stay with her granddaughter who is 48 y.o in [place]. Explained to patient that he may not get good benefits for health insurance as he has not been here in [place] in a good period of time. Report he has been here more than 3 months. Patient is aware of potential family meeting next week on Friday at 1300 virtually and discharge to follow after. VSs stable, no SOB, O2Sat this morning 92% but improved later on of the day. Ambulate with wheelchair. Visbile, sociall appropriately with peers and staff and attended groups. 07/23/25: Patient slept for 5 hours, medication compliant, no side effects. He is reasonable, social and appropriate. Reports singing he people's vehicles saw about the pig/pork meat. Denies safety concerns. He was not happy regarding the roommate who was snoring loudly, and was not quiet at night which interfere with his sleep. Encourage patient to to use ear plugs she sees if they are helpful. Blood pressure is fluctuated. We will continue to monitor. Ambulating with a walker. Pain is under control. 07/24/25: Patient slept through the night, was compliant with medications, but not compliant with diabetic protocol. Patient has not care for his diet, blood sugar continued to be high, received coverage. Nursing reported the patient was dancing yesterday but has a tantrum moment over food for dinner yesterday, he threw the walker away which was taken away from the patient for safety issues. Patient requests the walker, explained to patient reason why he can not get walker. He walked with normal steady gait. Reports the pain on the hip is improving. Denies safety concerns. Continued to confirm that he wants to stay in [place]. Reported that his granddaughter will come in in person to have a meeting this week. Denies depression or anxiety, sleep is improving. Changing from 5 to 15 minutes safety checks 07/25/25:Patient slept well, compliant with medication. Denies side effects. POC remains high, asymptomatic, received coverage per Protocol with extra 4 unit of Insulin prior dinner. Denies pain, walking with steady gait. Denies anxiety/depression. Denies SI/SIB/HI/AVH. Patient reports that he has been in this country for 10 years. Confirm he wants to stay in [place]. Do not want to return to [place]. Per EDITH, meeting with family went well- virtual. Patient will return to [place]. EDITH will work on aftercare plan and FLU appointment. 07/26/25: In person [employer]ader utilized. Reports improve in sleep, , medication compliant, denies safety concerns, denies depression and anxiety. Denies pain. Patient reported that he did not attend to family meeting yesterday. Educate patient on healthy food/fluid choices as his blood sugar was elevated much more higher than normal. He spent sometime napping in his room. No behavior issues. Reports sore throat and headache yesterday. Denies headache this morning but reported that he was coughing at night and has sore throat now. 07/27: Nursing also reports that the patient's sugar significantly increased while on prednisone, but has been trending down. Blood glucose in the past 2 days between 413 and 291. Continue current treatment regimen. 07/28: He reports ?mild? sore throat which started this morning. No associated symptoms. Continue current treatment regimen. 07/29/25: In-person schedule supervisor presence during want to on assessment. Patient reports slept okay last night, appetite good. Denies side effects from medications. Denies anxiety or depression. Sound having sore throat. Reported that fell last night and he has his head badly to the wall. Per nursing, patient lowered himself to the floor. He was irritable agitated at times yesterday. Refused MiraLax this morning. Reports head take 2/10 where he hit the wall yesterday. Patient having questioned regarding when he is discharged. Informed the patient that forensic social worker is working on sending the referral out. Pending results. 07/30: Chest XR pending. Continue current medications. 07/31: continue current management and treatment plan. 08/01/25: Interpretive, forensic social worker, and this provider met with patient in dining area. Patient reports slept well, feeling rested, no appetite issues. Denies depression or anxiety. No chest pain. No pain anywhere else except for sore throat which he said his feels better today. Review with patient regarding chest x-ray and EKG which was done over the weekends. Educate patient on healthy food and fluid choices. Patient observed and overheard snoring loudly at dinning table before lunch time. sawmill or timber yard worker continue to send out referral to fpc facility, especially in [facility]. Patient has been declined from other places so far. Patient also seen hospitalist Friday night regarding elevated of BUN/creatinine which consistently with see CKD, encourage fluid intake 08/02/25: Patient is visible in common areas, intermittently attended groups. Compliant with meds. NO side effects. Denies chest pain/pain/or sore throat. Slept for 7 hours, continue to reinforce on health choices of food and fluid as Blood sugar mostly not controlled as patient SW will set up family meeting next week to review with family of discharge plan/placement expectation. Patient was denied from 4 places out of 5 referalls sent out yesterday. CHange Miralax to PRN as patient has been refused it. 08/03/25: Patent report sleep well last night. No change in appetite. Denies depression and anxiety,and safety concerns. He appears tired. Patient reports cough at night and chest pain earlier today- not at the assessment. He sound congestion with sore throat. Nursing later on report patient cough up blood. Hospitalist seen patient, some blood when blowing his nose. Lungs are clear. SW working on aftercare appointments and family collateral. New order for Nasal spray PRN and Mucinex 600mg BID x7days. 08/04/25: sawmill or timber yard worker met with patient and this provider explained placement housing situation. Patient asked again what the plan for the future even though after the forensic social worker explained with him a couple of minutes before. Nursing reports that patient experience visual hallucination of flow of plans in his room when he is up this morning. Patient confirmed with this provider that he has been seeing that in his room. However, it does not scare him, he loves this hallucination as they are beautiful layne/plans. Reports his sleep was interrupted by his roommate who turned on the lights slept the door, he asked if he can move to another room. Explained to patient that currently we are hopeful and can not move people around. Denies safety concerns, denies depression or anxiety. Educate patient on keeping the skin on left middle finger clean, covered with bandage to prevent infection, and do not peel off the skin around the wound. Also educate patient on healthy choices, control diet so that it does not affect his physical health. Denies pain, reports bowel movement last night. Denies constipation. sawmill or timber yard worker to reach out to family regarding discharge plan. He may not discharge this weekend but early next week. 08/05/25: Patient visible in common areas, report slept well last night. Denies chest pain, continue to improve in cough and congestion. He denies seeing flower plants in his room this morning as VH as he reported yesterday that he has that experience mostly daily. Continue to educate patient on health food and fluid choices and weight control which have positive effects from for his health if they are under control. Education seems to have some effects as his Blood sugar was lower than and improving than it used to be He denies safety concerns now. Have questions regarding when he is discharged which patient was explained to patient by forensic social worker ( see EDITH note for more details) regarding discharge after care plan. Will continue to monitor for mental status change. Per nursing, patient slept well, and compliant with medication. Ambulate independently. Intermittently attended groups, less sedated or sleepy during daytime compare to 1-2 days ago. EDITH has been contacted family to collaborate to make sure patient has a safe discharge plan. (As of 08/02 Nadine has Been accepted to [facility] btu the issue at hand is the LEANDRO (Patient Review Instrument) that is a requirement for any [place] SNF) 08/06: Continue current tx plan 08/07: EJ stockings placed for ROWAN. Otherwise continue current tx plan 08/[address]- pt reported head injury last week, increase headaches, changes in vision. pt on two anticoagulants. dropped in Hgb from 10.6 to 8.9. hospitalist consulted- held aspirin and plavix. 08/09 continue tx. 08/10 psychiatrically stable, pending assessment from provider in [place] to be admitted to SNF- however, family reported they will not pay $300 for assessment. plan to coordinate dc of pt back to granddaughter's house. 08/11 continue tx. plan to dc to granddaughter in next few days. Plan: Bilateral hip pain-resolved Patient does not have any radiculopathy, numbness or tingling in his legs. He is ambulating at baseline without any antalgic gait, not using a walker. Denying any hip pain. CKD 3B Stable. Avoid nephrotoxins. Right lower lobe pneumonia Noted on chest x-ray Continue Levaquin 750 daily for 5 days due to PCN allergy Updraft nebulizer as needed Patient with a history of asthma, not on any maintenance meds. Continue Spiriva Improving Laceration to dorsum of left hand and fingers/scratch abrasions to calf. Continue local wound care Wound care following. No evidence of infection Coronary artery disease/history of stroke/CHF/hypertension Continue aspirin, Plavix, atorvastatin and Jardiance. Continue metoprolol 50 mg daily extended release Continue losartan at 25 mg daily, blood pressure is stable Continue Lasix twice daily at reduced dose in pm. Daily weights. Weight stable. 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 Add glargine 10 units in the morning. Recent A1c 9.1 Can consider starting Trulicity outpatient Continue gabapentin 600 t.i.d. Blood sugars elevated due to prednisone- last dose today Chronic kidney disease Stage 3 B Baseline 1.2 Avoid nephrotoxins Continue to monitor-nephrology consult pending BPH Continue tamsulosin GERD Continue Protonix Vitamin-D deficiency Continue vitamin-D daily Reason for continued inpatient stay Substantial Risk for: inability to function Time Spent With Patient Time: Total time managing care of this patient today ____ minutes.
[2025-08-11 16:39] LABS: Glucose, Whole Blood 266 mg/dL (60-115)
[2025-08-11 20:00] VITALS: BP 128/63; PULSE 76; TEMP 36.8; O2SAT 85
[2025-08-11 20:13] LABS: Glucose, Whole Blood 240 mg/dL (60-115)
[2025-08-11] MEDS: Insulin Glargine,Hum.rec.anlog 100 UNIT/ML 10 ML VIAL 50 UNIT SUBCUT (20:27)
[2025-08-12] MEDS: Albuterol Sulfate 90 MCG 8 GM INHALER 2 PUFF INHALE (03:18)
[2025-08-12 03:29] VITALS: BP 140/65; PULSE 90; RESP 26; TEMP 37.7; O2SAT 86
[2025-08-12 03:31] VITALS: O2SAT 95
--- NOTE | 2025-08-12 03:32 | HO.NURTONUR ---
0310 Pt ambulated to the nurses station, c/o SOB, headache 2/10, and chills. Pt is tachypneic with a RR 26, O2 sat 86 on room air. Pt has a nonproductive cough, scattered rhonch throughout. PRN Ventolin inhaler given, O2 sats improved to 95% 2liters, Murray ZHANG notified hospitalist orders pending.
--- NOTE | 2025-08-12 03:40 | P.EN_ITS ---
Event Note Date of Service: 08/12/25 Event Note: notified by [facility] staff that pt is feeling short of breath and O2 sat in low 90s with increased RR and fever of 100. improvement of O2 sat with 2L via NC. pt received albuterol inhaler with some improvement. requesting coffee, does not appear to be in acute respiratory distress. lungs with crackles in bilateral lower bases. CXR, BNP, BMP, CBC and COVID/flu test ordered. can give tylenol now. will follow labs. given that pt is comfortable and not in acute distress at this time will await workup, no need to transfer to the floor at this time. Time Spent With Patient Time: Total time managing care of this patient today ____ minutes.
[2025-08-12 04:00] LABS: MANUAL DIFF FLAG NO
[2025-08-12 04:01] VITALS: PULSE 78; RESP 18; O2SAT 96
[2025-08-12] MEDS: Albuterol/Iprat 2.5/0.5MG 3 ML AMPUL.NEB INHALE (04:01)
[2025-08-12 04:04] VITALS: BMI 41.1
[2025-08-12 04:16] LABS: Hematocrit 28.7 % (42.0-52.0); Hemoglobin 8.6 g/dl (14.0-18.0); Imm Gran Abs Auto 0.16 X10*3/uL (0.00-0.03); Imm Gran Pct Auto 1.7 % (0.0-0.4); Lymphocytes Absolute Auto 0.9 X10*3/uL (1.2-4.9); Mean Corpuscular HGB Conc 30.0 g/dl (31.0-36.0); Mean Corpuscular Hemoglobin 26.8 pg (27.0-33.0); Mean Corpuscular Volume 89.4 fL (80.0-98.0); NRBC Abs Auto 0.020 X10*3/uL (0.0-0.012); NRBC Pct Auto 0.2 /100WBC (0.0-0.2); Platelet Count 241 X10*3/uL (160-400); Red Blood Count 3.21 X10*6/uL (4.60-5.80); White Blood Count 9.7 X10*3/uL (4.8-10.8)
--- NOTE | 2025-08-12 04:34 | PC.NURSE ---
Addendum entered by Ivana Esparza RN 08/12/25 06:40: CXRAY RETURNED + PNA, BNP RETURNED 1043.6, K+ 5.9, MEDS GIVEN PER ORDER, LACTIC ACID COMPLETED. PRESCRIBER LESLYE UPDATED FOR DISCHARGE TO MEDICAL FLOOR. CONTINUES ON 2L O2 VIA NC. Original Note: POX RE-CHECKED ON AA, AFTER UPDRAFT, NOTED TO BE 94%, NO RESPIRATORY DISTRESS. SITTING IN COMMON AREA WAITING FOR COFFEE.
[2025-08-12 04:41] LABS: Resp Syncy Virus RNA Qual PCR NEGATIVE (Negative); SARS COV2 PCR INHOUSE NEGATIVE (Negative)
[2025-08-12 05:06] LABS: Anion Gap 15 (12-20); Blood Urea Nitrogen 45 mg/dL (9-16); Calcium 8.9 mg/dL (8.4-10.2); Carbon Dioxide 23 mmol/L (22-29); Chloride 103 mmol/L (96-108); Creatinine Clr Calc Pharmacy 52.2; Estimated Glomerular Filt Rate 50; Potassium 5.9 mmol/L (3.3-5.1); Sodium 135 mmol/L (135-145)
[2025-08-12 05:14] LABS: NT Pro B Type Natriuretic Pept 1043.6 pg/mL (<300)
--- NOTE | 2025-08-12 06:20 | P.DS_ITS ---
DS: Providers Provider Date of Service: 08/12/25 Date of admission: 07/14/25 13:02 Date of discharge: 08/12/25 Primary care physician: Unknown Physician Consults: 07/14/25 16:04 Consult to Hospitalist Routine Comment: Consulting Provider: [facility] Reason For Exam: medical H&P 07/15/25 14:14 Consult to Wound Care Routine Reason for consultation: Laceration to left dorsum of hand, calf 07/16/25 13:16 Consult to Hospitalist Routine Comment: Patient was seen by Hortensia Austin yesterday Consulting Provider: [facility] Reason For Exam: Rapid increase in creatinine level 07/16/25 21:28 Consult to Nephrology Routine Consulting Provider: [facility] Reason for consultation: worsening creatinine 07/19/25 08:51 Consult to Hospitalist Routine Comment: Consulting Provider: [facility] Reason For Exam: severe pain left hip 07/29/25 19:32 Consult to Hospitalist Routine Comment: Consulting Provider: [facility] Reason For Exam: Elevated BUN/Creatinine. Hx CKD stage 3 DS: Diagnosis Discharge Diagnosis (1) RLL pneumonia: Status: Acute DS: Medications Discharge Medications Home Medications: Previous Rx's ?Medication ?Instructions ?Recorded albuterol sulfate 90 mcg/actuation 2 puff inhalation R Q4H PRN 08/12/25 aerosol inhaler (Ventolin HFA) SOB/Wheezing #0 grams ascorbic acid (vitamin C) 500 mg 500 mg PO DAILY #0 ta bs 08/12/25 tablet (Vitamin C) aspirin 81 mg chewable tablet 81 mg PO DAILY #0 tabs 1 10/12/24 atorvastatin 40 mg tablet 40 mg PO BEDTIME #0 tabs 04/29 benzocaine 15 mg-menthol 3.6 mg 1 eduar mucous membrane Q2H PRN Sore 08/12/25 lozenges (Sore Throat (benzocaine Throat #0 ea with menthol)) cyanocobalamin (vitamin B-12) 1,000 mcg PO DAILY #0 ta bs 08/12/25 1,000 mcg tablet (Vitamin B-12) docusate sodium 100 mg capsule 100 mg PO BID #0 caps 1 10/12/24 empagliflozin 10 mg tablet 10 mg PO DAILY #0 tabs 04/29 (Jardiance) ergocalciferol (vitamin D2) 1,250 1,250 mcg PO Fr@0900 #0 caps 08/12/25 mcg (50,000 unit) capsule (Vitamin D2) ferrous sulfate 324 mg (65 mg 324 mg PO DAILY #0 tabs 08/12/25 iron) tablet,delayed release fluticasone propionate 50 1 spray intranasal DAILY #0 grams 08/12/25 mcg/actuation nasal spray,suspension furosemide 20 mg tablet 20 mg PO DAILY #0 tabs 08/12 gabapentin 600 mg tablet 600 mg PO TID #0 tabs insulin glargine 100 unit/mL 15 unit (0.15 mL) subcut DAILY #0 08/12/25 subcutaneous solution (Lantus mL U-100 Insulin) insulin glargine 100 unit/mL 50 unit (0.5 mL) subcut B EDTIME #0 08/12/25 subcutaneous solution (Lantus mL U-100 Insulin) insulin lispro 100 unit/mL See Protocol subcut QIDACHS #0 mL 08/12/25 subcutaneous solution (Admelog U-100 Insulin lispro) lidocaine 4 % topical patch 1 patch transdermal DAILY PRN R 08/12/25 (Lidocaine Pain Relief) flank pain #0 ea lorazepam 0.5 mg tablet 0.5 mg PO BID PRN Anxiety #0 tabs 08/12/25 melatonin 3 mg tablet 6 mg (2 x 3 mg) PO BEDTIME # 0 tabs 08/12/25 metoprolol succinate 50 mg 50 mg PO DAILY #0 tabs 04/29 tablet,extended release 24 hr montelukast 10 mg tablet 10 mg PO BEDTIME #0 tabs 04/29 pantoprazole 20 mg tablet,delayed 40 mg (2 x 20 mg) PO DAILY #0 tabs 08/12/25 release polyethylene glycol 3350 17 gram 17 g PO DAILY #0 ea 1 10/12/24 oral powder packet risperidone 1 mg tablet 1 mg PO BID #0 tabs 08/12/25 sennosides 8.6 mg tablet (Senna 8.6 mg PO BEDTIME #0 t abs 08/12/25 Lax) sodium chloride 0.65 % nasal spray 1 spray intranasal Q1H PRN Nasal 08/12/25 aerosol (Deep Sea Nasal) congestion #0 mL tamsulosin 0.4 mg capsule 0.4 mg PO BEDTIME #0 caps thiamine mononitrate (vit B1) 100 100 mg PO DAILY #0 t abs 08/12/25 mg tablet tiotropium bromide 2.5 2 puff inhalation RDAILY #0 grams 08/12/25 mcg/actuation mist for inhalation (Spiriva Respimat) tizanidine 4 mg tablet 2 mg (1/2 x 4 mg) PO BEDTIME #0 08/12/25 tabs tramadol 50 mg tablet 50 mg PO Q6H PRN severe left hip 08/12/25 pain #0 tabs Data Data Completed and Pending Completed studies during hospitalization [Text1]: 08/05/25 08/05/25 08/05/25 11:06 16:07 20:30 WBC RBC Hgb Hct MCV MCH MCHC RDW Plt Count MPV Immature Gran % (Auto) Neut % (Auto) Lymph % (Auto) Dundy % (Auto) Eos % (Auto) Baso % (Auto) Lymph # (Auto) Dundy # (Auto) Eos # (Auto) Baso # (Auto) Abs Immat Gran (auto) Absolute Neuts (auto) Absolute Nucleated RBC Nucleated RBC % (auto) Hold Purple Top Sodium Potassium Chloride Carbon Dioxide Anion Gap BUN Creatinine Estim Creat Clear Calc Estimated GFR POC Glucose 318 H 184 H 244 H Random Glucose Calcium Iron TIBC % Saturation Unsat Iron Binding Ferritin Total Bilirubin AST ALT Alkaline Phosphatase NT-Pro-B Natriuret Pep Total Protein Albumin Vitamin B12 Folate Urine Color Urine Appearance Urine pH Ur Specific [place] Urine Protein Urine Glucose (UA) Urine Ketones Urine Blood Urine Nitrite Ur Leukocyte Esterase Urine RBC Urine WBC Ur Squamous Epith Cells Urine Bacteria Hyaline Casts COVID-19 ([facility]) COVID-19 Clin Com Influenza Type A ([facility]) Influenza Type A (PCR) Influenza Type B ([facility]AH) Influenza Type B (PCR) Influenza A & B Note RSV RNA Qual (PCR) SARS-CoV-2 RNA (RT-PCR) 08/06/25 08/06/25 08/06/25 06:32 11:45 16:02 WBC RBC Hgb Hct MCV MCH MCHC RDW Plt Count MPV Immature Gran % (Auto) Neut % (Auto) Lymph % (Auto) Dundy % (Auto) Eos % (Auto) Baso % (Auto) Lymph # (Auto) Dundy # (Auto) Eos # (Auto) Baso # (Auto) Abs Immat Gran (auto) Absolute Neuts (auto) Absolute Nucleated RBC Nucleated RBC % (auto) Hold Purple Top Sodium Potassium Chloride Carbon Dioxide Anion Gap BUN Creatinine Estim Creat Clear Calc Estimated GFR POC Glucose 126 H 220 H 277 H Random Glucose Calcium Iron TIBC % Saturation Unsat Iron Binding Ferritin Total Bilirubin AST ALT Alkaline Phosphatase NT-Pro-B Natriuret Pep Total Protein Albumin Vitamin B12 Folate Urine Color Urine Appearance Urine pH Ur Specific [place] Urine Protein Urine Glucose (UA) Urine Ketones Urine Blood Urine Nitrite Ur Leukocyte Esterase Urine RBC Urine WBC Ur Squamous Epith Cells Urine Bacteria Hyaline Casts COVID-19 ([facility]) COVID-19 Clin Com Influenza Type A (ALEAH) Influenza Type A (PCR) Influenza Type B ([facility]AH) Influenza Type B (PCR) Influenza A & B Note RSV RNA Qual (PCR) SARS-CoV-2 RNA (RT-PCR) 08/06/25 08/07/25 08/07/25 19:51 06:09 11:21 WBC RBC Hgb Hct MCV MCH MCHC RDW Plt Count MPV Immature Gran % (Auto) Neut % (Auto) Lymph % (Auto) Dundy % (Auto) Eos % (Auto) Baso % (Auto) Lymph # (Auto) Dundy # (Auto) Eos # (Auto) Baso # (Auto) Abs Immat Gran (auto) Absolute Neuts (auto) Absolute Nucleated RBC Nucleated RBC % (auto) Hold Purple Top Sodium Potassium Chloride Carbon Dioxide Anion Gap BUN Creatinine Estim Creat Clear Calc Estimated GFR POC Glucose 215 H 212 H 263 H Random Glucose Calcium Iron TIBC % Saturation Unsat Iron Binding Ferritin Total Bilirubin AST ALT Alkaline Phosphatase NT-Pro-B Natriuret Pep Total Protein Albumin Vitamin B12 Folate Urine Color Urine Appearance Urine pH Ur Specific [place] Urine Protein Urine Glucose (UA) Urine Ketones Urine Blood Urine Nitrite Ur Leukocyte Esterase Urine RBC Urine WBC Ur Squamous Epith Cells Urine Bacteria Hyaline Casts COVID-19 ([facility]) COVID-19 Clin Com Influenza Type A ([facility]) Influenza Type A (PCR) Influenza Type B ([facility]AH) Influenza Type B (PCR) Influenza A & B Note RSV RNA Qual (PCR) SARS-CoV-2 RNA (RT-PCR) 08/07/25 08/07/25 08/08/25 15:54 21:03 06:00 WBC RBC Hgb Hct MCV MCH MCHC RDW Plt Count MPV Immature Gran % (Auto) Neut % (Auto) Lymph % (Auto) Dundy % (Auto) Eos % (Auto) Baso % (Auto) Lymph # (Auto) Dundy # (Auto) Eos # (Auto) Baso # (Auto) Abs Immat Gran (auto) Absolute Neuts (auto) Absolute Nucleated RBC Nucleated RBC % (auto) Hold Purple Top Sodium Potassium Chloride Carbon Dioxide Anion Gap BUN Creatinine Estim Creat Clear Calc Estimated GFR POC Glucose 280 H 295 H 186 H Random Glucose Calcium Iron TIBC % Saturation Unsat Iron Binding Ferritin Total Bilirubin AST ALT Alkaline Phosphatase NT-Pro-B Natriuret Pep Total Protein Albumin Vitamin B12 Folate Urine Color Urine Appearance Urine pH Ur Specific [place] Urine Protein Urine Glucose (UA) Urine Ketones Urine Blood Urine Nitrite Ur Leukocyte Esterase Urine RBC Urine WBC Ur Squamous Epith Cells Urine Bacteria Hyaline Casts COVID-19 ([facility]) COVID-19 Clin Com Influenza Type A ([facility]) Influenza Type A (PCR) Influenza Type B ([facility]) Influenza Type B (PCR) Influenza A & B Note RSV RNA Qual (PCR) SARS-CoV-2 RNA (RT-PCR) 08/08/25 08/08/25 08/08/25 11:27 14:04 16:11 WBC RBC Hgb Hct MCV MCH MCHC RDW Plt Count MPV Immature Gran % (Auto) Neut % (Auto) Lymph % (Auto) Dundy % (Auto) Eos % (Auto) Baso % (Auto) Lymph # (Auto) Dundy # (Auto) Eos # (Auto) Baso # (Auto) Abs Immat Gran (auto) Absolute Neuts (auto) Absolute Nucleated RBC Nucleated RBC % (auto) Hold Purple Top Sodium 136 Potassium 4.8 Chloride 102 Carbon Dioxide 30 H Anion Gap 9 L BUN 37 H Creatinine 1.31 Estim Creat Clear Calc 55.0 Estimated GFR 53 POC Glucose 268 H 288 H Random Glucose 230 H Calcium 8.8 Iron TIBC % Saturation Unsat Iron Binding Ferritin Total Bilirubin 0.2 AST 26 ALT 17 Alkaline Phosphatase 94 NT-Pro-B Natriuret Pep Total Protein 6.9 Albumin 3.3 L Vitamin B12 Folate Urine Color Urine Appearance Urine pH Ur Specific [place] Urine Protein Urine Glucose (UA) Urine Ketones Urine Blood Urine Nitrite Ur Leukocyte Esterase Urine RBC Urine WBC Ur Squamous Epith Cells Urine Bacteria Hyaline Casts COVID-19 ([facility]) COVID-19 Clin Com Influenza Type A ([facility]) Influenza Type A (PCR) Influenza Type B ([facility]) Influenza Type B (PCR) Influenza A & B Note RSV RNA Qual (PCR) SARS-CoV-2 RNA (RT-PCR) 08/08/25 08/08/25 08/09/25 17:01 20:22 06:39 WBC 10.6 RBC 3.25 L Hgb 8.9 L Hct 29.3 L MCV 90.2 MCH 27.4 MCHC 30.4 L RDW 17.4 H Plt Count 237 MPV 10.4 Immature Gran % (Auto) 1.2 H Neut % (Auto) 75.2 H Lymph % (Auto) 10.8 L Dundy % (Auto) 7.4 Eos % (Auto) 5.0 H Baso % (Auto) 0.4 Lymph # (Auto) 1.1 L Dundy # (Auto) 0.8 Eos # (Auto) 0.5 H Baso # (Auto) 0.0 Abs Immat Gran (auto) 0.13 H Absolute Neuts (auto) 7.9 Absolute Nucleated RBC 0.000 Nucleated RBC % (auto) 0.0 Hold Purple Top Sodium Potassium Chloride Carbon Dioxide Anion Gap BUN Creatinine Estim Creat Clear Calc Estimated GFR POC Glucose 276 H 234 H Random Glucose Calcium Iron TIBC % Saturation Unsat Iron Binding Ferritin Total Bilirubin AST ALT Alkaline Phosphatase NT-Pro-B Natriuret Pep Total Protein Albumin Vitamin B12 Folate Urine Color Urine Appearance Urine pH Ur Specific [place] Urine Protein Urine Glucose (UA) Urine Ketones Urine Blood Urine Nitrite Ur Leukocyte Esterase Urine RBC Urine WBC Ur Squamous Epith Cells Urine Bacteria Hyaline Casts COVID-19 ([facility]) COVID-19 Clin Com Influenza Type A ([facility]ELAH) Influenza Type A (PCR) Influenza Type B (ALEAH) Influenza Type B (PCR) Influenza A & B Note RSV RNA Qual (PCR) SARS-CoV-2 RNA (RT-PCR) 08/09/25 08/09/25 08/09/25 10:49 11:14 16:06 WBC 9.7 RBC 3.12 L Hgb 8.4 L Hct 28.2 L MCV 90.4 MCH 26.9 L MCHC 29.8 L RDW 17.3 H Plt Count 237 MPV 11.1 Immature Gran % (Auto) 1.1 H Neut % (Auto) 75.5 H Lymph % (Auto) 10.4 L Dundy % (Auto) 6.9 Eos % (Auto) 5.7 H Baso % (Auto) 0.4 Lymph # (Auto) 1.0 L Dundy # (Auto) 0.7 Eos # (Auto) 0.6 H Baso # (Auto) 0.0 Abs Immat Gran (auto) 0.11 H Absolute Neuts (auto) 7.3 Absolute Nucleated RBC 0.000 Nucleated RBC % (auto) 0.0 Hold Purple Top Sodium Potassium Chloride Carbon Dioxide Anion Gap BUN Creatinine Estim Creat Clear Calc Estimated GFR POC Glucose 224 H 219 H Random Glucose Calcium Iron TIBC % Saturation Unsat Iron Binding Ferritin Total Bilirubin AST ALT Alkaline Phosphatase NT-Pro-B Natriuret Pep Total Protein Albumin Vitamin B12 Folate Urine Color Urine Appearance Urine pH Ur Specific [place] Urine Protein Urine Glucose (UA) Urine Ketones Urine Blood Urine Nitrite Ur Leukocyte Esterase Urine RBC Urine WBC Ur Squamous Epith Cells Urine Bacteria Hyaline Casts COVID-19 ([facility]) COVID-19 Clin Com Influenza Type A ([facility]) Influenza Type A (PCR) Influenza Type B ([facility]AH) Influenza Type B (PCR) Influenza A & B Note RSV RNA Qual (PCR) SARS-CoV-2 RNA (RT-PCR) 08/09/25 08/09/25 08/10/25 18:00 19:53 06:08 WBC RBC Hgb Hct MCV MCH MCHC RDW Plt Count MPV Immature Gran % (Auto) Neut % (Auto) Lymph % (Auto) Dundy % (Auto) Eos % (Auto) Baso % (Auto) Lymph # (Auto) Dundy # (Auto) Eos # (Auto) Baso # (Auto) Abs Immat Gran (auto) Absolute Neuts (auto) Absolute Nucleated RBC Nucleated RBC % (auto) Hold Purple Top Sodium Potassium Chloride Carbon Dioxide Anion Gap BUN Creatinine Estim Creat Clear Calc Estimated GFR POC Glucose 232 H 168 H Random Glucose Calcium Iron TIBC % Saturation Unsat Iron Binding Ferritin Total Bilirubin AST ALT Alkaline Phosphatase NT-Pro-B Natriuret Pep Total Protein Albumin Vitamin B12 Folate Urine Color Yellow Urine Appearance Clear Urine pH 6.5 Ur Specific [place] 1.020 Urine Protein Negative Urine Glucose (UA) >=1000 H Urine Ketones Negative Urine Blood Negative Urine Nitrite Negative Ur Leukocyte Esterase Negative Urine RBC 0-2 Urine WBC 0-5 Ur Squamous Epith Cells 0-2 Urine Bacteria None Seen Hyaline Casts 0-2 COVID-19 ([facility]) COVID-19 Clin Com Influenza Type A ([facility]) Influenza Type A (PCR) Influenza Type B ([facility]AH) Influenza Type B (PCR) Influenza A & B Note RSV RNA Qual (PCR) SARS-CoV-2 RNA (RT-PCR) 08/10/25 08/10/25 08/10/25 08:06 11:10 16:05 WBC 10.1 RBC 3.07 L Hgb 8.4 L Hct 27.7 L MCV 90.2 MCH 27.4 MCHC 30.3 L RDW 17.4 H Plt Count 224 MPV 10.6 Immature Gran % (Auto) 1.2 H Neut % (Auto) 76.6 H Lymph % (Auto) 9.1 L Dundy % (Auto) 7.2 Eos % (Auto) 5.4 H Baso % (Auto) 0.5 Lymph # (Auto) 0.9 L Dundy # (Auto) 0.7 Eos # (Auto) 0.5 H Baso # (Auto) 0.1 Abs Immat Gran (auto) 0.12 H Absolute Neuts (auto) 7.7 Absolute Nucleated RBC 0.000 Nucleated RBC % (auto) 0.0 Hold Purple Top Sodium Potassium Chloride Carbon Dioxide Anion Gap BUN Creatinine Estim Creat Clear Calc Estimated GFR POC Glucose 202 H 220 H Random Glucose Calcium Iron TIBC % Saturation Unsat Iron Binding Ferritin Total Bilirubin AST ALT Alkaline Phosphatase NT-Pro-B Natriuret Pep Total Protein Albumin Vitamin B12 Folate Urine Color Urine Appearance Urine pH Ur Specific [place] Urine Protein Urine Glucose (UA) Urine Ketones Urine Blood Urine Nitrite Ur Leukocyte Esterase Urine RBC Urine WBC Ur Squamous Epith Cells Urine Bacteria Hyaline Casts COVID-19 ([facility]) COVID-19 Clin Com Influenza Type A ([facility]) Influenza Type A (PCR) Influenza Type B ([facility]AH) Influenza Type B (PCR) Influenza A & B Note RSV RNA Qual (PCR) SARS-CoV-2 RNA (RT-PCR) 08/10/25 08/11/25 08/11/25 20:28 05:40 07:05 WBC RBC Hgb Hct MCV MCH MCHC RDW Plt Count MPV Immature Gran % (Auto) Neut % (Auto) Lymph % (Auto) Dundy % (Auto) Eos % (Auto) Baso % (Auto) Lymph # (Auto) Dundy # (Auto) Eos # (Auto) Baso # (Auto) Abs Immat Gran (auto) Absolute Neuts (auto) Absolute Nucleated RBC Nucleated RBC % (auto) Hold Purple Top SEE NOTE Sodium Potassium Chloride Carbon Dioxide Anion Gap BUN Creatinine Estim Creat Clear Calc Estimated GFR POC Glucose 335 H 166 H Random Glucose Calcium Iron 30 L TIBC 227 L % Saturation 13 L Unsat Iron Binding 197 Ferritin 69 Total Bilirubin AST ALT Alkaline Phosphatase NT-Pro-B Natriuret Pep Total Protein Albumin Vitamin B12 1233 H Folate 9.8 Urine Color Urine Appearance Urine pH Ur Specific [place] Urine Protein Urine Glucose (UA) Urine Ketones Urine Blood Urine Nitrite Ur Leukocyte Esterase Urine RBC Urine WBC Ur Squamous Epith Cells Urine Bacteria Hyaline Casts COVID-19 ([facility]) COVID-19 Clin Com Influenza Type A ([facility]) Influenza Type A (PCR) Influenza Type B ([facility]) Influenza Type B (PCR) Influenza A & B Note RSV RNA Qual (PCR) SARS-CoV-2 RNA (RT-PCR) 08/11/25 08/11/25 08/11/25 10:56 16:33 20:08 WBC RBC Hgb Hct MCV MCH MCHC RDW Plt Count MPV Immature Gran % (Auto) Neut % (Auto) Lymph % (Auto) Dundy % (Auto) Eos % (Auto) Baso % (Auto) Lymph # (Auto) Dundy # (Auto) Eos # (Auto) Baso # (Auto) Abs Immat Gran (auto) Absolute Neuts (auto) Absolute Nucleated RBC Nucleated RBC % (auto) Hold Purple Top Sodium Potassium Chloride Carbon Dioxide Anion Gap BUN Creatinine Estim Creat Clear Calc Estimated GFR POC Glucose 174 H 266 H 240 H Random Glucose Calcium Iron TIBC % Saturation Unsat Iron Binding Ferritin Total Bilirubin AST ALT Alkaline Phosphatase NT-Pro-B Natriuret Pep Total Protein Albumin Vitamin B12 Folate Urine Color Urine Appearance Urine pH Ur Specific [place] Urine Protein Urine Glucose (UA) Urine Ketones Urine Blood Urine Nitrite Ur Leukocyte Esterase Urine RBC Urine WBC Ur Squamous Epith Cells Urine Bacteria Hyaline Casts COVID-19 ([facility]) COVID-19 Clin Com Influenza Type A ([facility]) Influenza Type A (PCR) Influenza Type B ([facility]) Influenza Type B (PCR) Influenza A & B Note RSV RNA Qual (PCR) SARS-CoV-2 RNA (RT-PCR) 08/12/25 08/12/25 03:47 03:55 WBC 9.7 RBC 3.21 L Hgb 8.6 L Hct 28.7 L MCV 89.4 MCH 26.8 L MCHC 30.0 L RDW 17.6 H Plt Count 241 MPV 11.2 Immature Gran % (Auto) 1.7 H Neut % (Auto) 77.8 H Lymph % (Auto) 9.6 L Dundy % (Auto) 5.8 Eos % (Auto) 4.8 H Baso % (Auto) 0.3 Lymph # (Auto) 0.9 L Dundy # (Auto) 0.6 Eos # (Auto) 0.5 H Baso # (Auto) 0.0 Abs Immat Gran (auto) 0.16 H Absolute Neuts (auto) 7.5 Absolute Nucleated RBC 0.020 H Nucleated RBC % (auto) 0.2 Hold Purple Top Sodium 135 Potassium 5.9 H D Chloride 103 Carbon Dioxide 23 Anion Gap 15 BUN 45 H Creatinine 1.39 Estim Creat Clear Calc 52.2 Estimated GFR 50 POC Glucose Random Glucose 269 H Calcium 8.9 Iron TIBC % Saturation Unsat Iron Binding Ferritin Total Bilirubin AST ALT Alkaline Phosphatase NT-Pro-B Natriuret Pep 1043.6 H Total Protein Albumin Vitamin B12 Folate Urine Color Urine Appearance Urine pH Ur Specific [place] Urine Protein Urine Glucose (UA) Urine Ketones Urine Blood Urine Nitrite Ur Leukocyte Esterase Urine RBC Urine WBC Ur Squamous Epith Cells Urine Bacteria Hyaline Casts COVID-19 ([facility]) Cancelled COVID-19 Clin Com Cancelled Influenza Type A ([facility]) Cancelled Influenza Type A (PCR) NEGATIVE Influenza Type B ([facility]) Cancelled Influenza Type B (PCR) NEGATIVE Influenza A & B Note Cancelled RSV RNA Qual (PCR) NEGATIVE SARS-CoV-2 RNA (RT-PCR) NEGATIVE Imaging Diagnostic Imaging Impressions Chest X-Ray 07/15/25 15:24 IMPRESSION: Clear lungs. Electronically signed by: Brice Bunch MD 07/15/2025 03:40 PM EDT RP Hip/Pelvis X-Ray 07/19/25 11:20 IMPRESSION: Patchy increased sclerosis which may be due to renal osteodystrophy. Other etiologies including metastatic disease are not excluded. Clinical correlation is recommended. Electronically signed by: Brice Bunch MD 07/19/2025 11:49 AM EDT RP Lumbar Spine X-Ray 07/19/25 11:20 IMPRESSION: Mild degenerative disc disease. Electronically signed by: Brice Bunch MD 07/19/2025 11:50 AM EDT RP Chest X-Ray 07/19/25 11:33 IMPRESSION: Right lower lobe pneumonia. Follow-up is recommended to document resolution. Electronically signed by: Brice Bunch MD 07/19/2025 11:44 AM EDT RP Abdomen/Pelvis CT 07/21/25 15:26 IMPRESSION: Lobulated fat-containing umbilical hernia. Atelectasis versus airspace disease, lung bases. Abundant stool without intestinal obstruction pattern. Simple cyst, left kidney. Degenerative changes both hips with questionable trochanter bursitis. Multilevel thoracolumbar spondylosis resulting in central spinal canal stenosis. Please for to the CT lumbar spine. Fleischner guidelines were followed. 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 Mild narrowing of neural foramina bilaterally at along the lumbar spinal canal. The findings are slightly worse on the right at the T12-L1 disc level there is a right facet joint hypertrophy extending into the neural foramina and a small bony spur extending into right lateral recess at the L2-3 disc level. No abnormal enhancement seen within the lower dorsal or lumbar spinal canal or the region of conus medullaris. If patient has persistent radiculopathy and numbness and tingling in the legs further evaluation with neurology may be helpful. Electronically signed by: Gabo Bush MD 07/22/2025 07:26 AM EDT RP Head CT 08/08/25 14:59 IMPRESSION: No evidence of intracranial hemorrhage. Electronically signed by: Brice Bunch MD 08/08/2025 03:28 PM EST RP DS: Summary Hospital Course Hospital Course: Mr. Eden is a 75 years old who was brought via EMS after bystander called 911 due to patient found in a park cutting himself. In the ED, he had self- inflicted laceration dorsum of his left hand and calf. He reported depressed mood and SI. He also reported he is currently homeless and worried about his living situation. Pertinent labs completed in the ED include CBC with anemia, Hgb 10.6/Hct 33. CMP with low sodium 132, BUN 36, Cr 1.20, AST 17/ALT 14. He had series of troponins, initially elevated at 47, following troponins plateau at 30. EKG without s/s of dysrhythmia or ischemic injury. Chest XR showed low volume with mild basilar atelectasis but no pneumonia. Utox was negative. On the unit, pt reports he was hearing voices, male voices telling this that they wanted to see blood. He reports in an effort to quiet the voices he stabbed himself on the hand. He reports passive suicidality in that he is depressed about his current living situation but clarifies that self harm is in response to the voices that are torturing him and he is not sure how to make them go away. He reports he has heard voices for a long time. He reports years but not able to tell if 5 years or more than 10 years. He reports his family moved from [place] to [place] and since then he became homeless. He reports his first psychiatric admission was when his back in 2017. He endorses anxious mood, depressed mood, feeling hopelessness. He reports poor sleep. HOSPITAL COURSE On the unit, pt was admitted on a CV and placed on 15 minutes checks for safety. Pt was started on risperidone for voices, which quickly resolved improving his mood and for several weeks he has been presenting as psychiatrically stable in that he has denied depressed mood and does not appear internally preoccupied. There haven't been any aggression towards self or others. He rebollar shave number of medical condition and hospitalist has been following him. He is being transferred to the medical floor due to increase SOB, hypoxia, found to have elevated BNP 1000. He was also found to have s/s of pneumonia. His main barrier to discharge was he is originally from [place]. Plan was to transfer to SNF in [place] where secure a bed. It is required by [place] to complete a [place] by [place] license provider. However, this assessment has an out of pocket cost that family has reported not able to pay. See notes for additional information. Also, during this admission, Hbg has dropped from 10.6 to 8.4. Aspirin and Plavix were both held by hospitalist and pending occult blood in stool test. Status at Discharge Cognitive/behavioral status at discharge: transfer to medical floor Time Spent with Patient Time attestation: Total time managing care of this patient today ____ minutes. Discharge Plan Discharge Anticipated Discharge Date/Time: 08/12/25 06:06 Patient Disposition: Xfer Acute Care Hospital Discharge Diagnosis: MDD with psychosis Referrals: Physician,Unknown J [Primary Care Provider, Medical] - 1 Week Discharge Medications: New atorvastatin 40 mg Tablet 40 mg PO BEDTIME Qty: 0 0RF gabapentin 600 mg Tablet 600 mg PO TID Qty: 0 0RF tizanidine 4 mg Tablet 2 mg PO BEDTIME Qty: 0 0RF metoprolol succinate 50 mg Tablet Extended Release 24 Hr 50 mg PO DAILY Qty: 0 0RF tramadol 50 mg Tablet 50 mg PO Q6H PRN (Reason: severe left hip pain) Qty: 0 0RF lorazepam 0.5 mg Tablet 0.5 mg PO BID PRN (Reason: Anxiety) Qty: 0 0RF tamsulosin 0.4 mg Capsule 0.4 mg PO BEDTIME Qty: 0 0RF docusate sodium 100 mg Capsule 100 mg PO BID Qty: 0 0RF aspirin 81 mg Tablet,Chewable 81 mg PO DAILY Qty: 0 0RF furosemide 20 mg Tablet 20 mg PO DAILY Qty: 0 0RF Protocol: Hold for SBP< HOLD for SBP < : 90 albuterol sulfate [Ventolin HFA] 90 mcg/actuation Hfa Aerosol Inhaler 2 puff inhalation RQ4H PRN (Reason: SOB/Wheezing) Qty: 0 0RF fluticasone propionate 50 mcg/actuation [place],Suspension 1 spray intranasal DAILY Qty: 0 0RF risperidone 1 mg Tablet 1 mg PO BID Qty: 0 0RF Deep Sea Nasal 0.65 % Aerosol,Katy 1 spray intranasal Q1H PRN (Reason: Nasal congestion) Qty: 0 0RF ferrous sulfate 324 mg (65 mg iron) Tablet,Delayed Release (Dr/Ec) 324 mg PO DAILY Qty: 0 0RF Sore Throat (benzocaine-menth) 15-3.6 mg Lozenge 1 eduar mucous membrane Q2H PRN (Reason: Sore Throat) Qty: 0 0RF Spiriva Respimat 2.5 mcg/actuation Mist 2 puff inhalation RDAILY Qty: 0 0RF sennosides [Senna Lax] 8.6 mg Tablet 8.6 mg PO BEDTIME Qty: 0 0RF insulin glargine [Lantus U-100 Insulin] 100 unit/mL Solution 15 unit subcut DAILY Qty: 0 0RF insulin glargine [Lantus U-100 Insulin] 100 unit/mL Solution 50 unit subcut BEDTIME Qty: 0 0RF lidocaine [Lidocaine Pain Relief] 4 % Adhesive Patch,Medicated 1 patch transdermal DAILY PRN (Reason: R flank pain) Qty: 0 0RF Protocol: Apply to: Apply to: R flank polyethylene glycol 3350 17 gram Powder In Packet 17 g PO DAILY Qty: 0 0RF cyanocobalamin (vitamin B-12) [Vitamin B-12] 1,000 mcg Tablet 1,000 mcg PO DAILY Qty: 0 0RF melatonin 3 mg Tablet 6 mg PO BEDTIME Qty: 0 0RF pantoprazole 20 mg Tablet,Delayed Release (Dr/Ec) 40 mg PO DAILY Qty: 0 0RF ascorbic acid (vitamin C) [Vitamin C] 500 mg Tablet 500 mg PO DAILY Qty: 0 0RF montelukast 10 mg Tablet 10 mg PO BEDTIME Qty: 0 0RF ergocalciferol (vitamin D2) [Vitamin D2] 1,250 mcg (50,000 unit) Capsule 1,250 mcg PO Fr@0900 Qty: 0 0RF insulin lispro [Admelog U-100 Insulin lispro] 100 unit/mL Solution See Protocol subcut QIDACHS Qty: 0 0RF Protocol: Insulin Correction Scale Less than or equal to 110 ---- Give (units): 0 111 to 150 Give (units): 0 151 to 200 Give (units): 2 201 to 250 Give (units): 4 251 to 300 Give (units): 6 301 to 350 Give (units): 8 Greater than 350 Give (units): 10 Call MD if Blood Glucose > : 350 thiamine mononitrate (vit B1) 100 mg Tablet 100 mg PO DAILY Qty: 0 0RF Jardiance 10 mg Tablet 10 mg PO DAILY Qty: 0 0RF Discontinued lorazepam tablet 0.5 mg PO BID PRN (Reason: Anxiety) atorvastatin tablet 40 mg PO BEDTIME Aspir-81 81 mg PO DAILY Singulair 10 mg PO BEDTIME cholecalciferol (vitamin D3) 50,000 unit PO QWEEK clopidogrel 75 mg PO DAILY dapagliflozin propanediol 5 mg PO DAILY docusate sodium 100 mg PO DAILY escitalopram oxalate 5 mg PO DAILY furosemide 40 mg PO BID gabapentin 600 mg PO TID losartan 50 mg PO DAILY pantoprazole 40 mg PO DAILY tamsulosin 0.4 mg PO DAILY tizanidine 2 mg PO BEDTIME ferrous sulfate 324 mg PO TID melatonin 6 mg PO BEDTIME thiamine HCl (vitamin B1) 100 mg PO DAILY insulin lispro See Rx Instructions .ROUTE .COMPLEX Rx Instructions: 8 unit subcutaneously for BS 351-400 insulin lispro See Rx Instructions .ROUTE .COMPLEX Rx Instructions: 2 units subcutaneously for BS 150-200 insulin lispro See Rx Instructions .ROUTE .COMPLEX Rx Instructions: 4 unit subcutaneously for BS 201-250 insulin lispro See Rx Instructions .ROUTE .COMPLEX Rx Instructions: 6 unit subcutaneously for BS 251-300 metoprolol succinate 50 mg Tablet Extended Release 24 Hr 50 mg PO DAILY cyanocobalamin (vitamin B-12) 1,000 mcg Tablet 1,000 mcg PO DAILY insulin glargine [Basaglar KwikPen U-100 Insulin] 100 unit/mL (3 mL) Insulin Pen 50 unit SUBCUT BEDTIME Discharge Orders: Discharge Order (Routine); Ordered 08/12/25 Ordered By: Cary Olmstead Diet: Diabetic diet Activity on Discharge: As tolerated Stand Alone Forms: Patient Portal Discharge page Print Language: South African Care Plan Goals: maintain mood Health Concerns: transferred to medical floor Plan of Treatment: transferred to medical floor Assessment: transfer to medical floor. Discharge Date/Time: 08/12/25 07:07
[2025-08-12 06:37] VITALS: BP 139/63; PULSE 100; RESP 24; TEMP 37; O2SAT 88
[2025-08-12 06:40] LABS: Glucose, Whole Blood 239 mg/dL (60-115)
[2025-08-12 16:42] LABS: Glucose, Whole Blood 215 mg/dL (60-115)
== END 2025-08-12 07:07 | disposition short-term general hospital (02) | DRG 885 ==
PROVIDERS: Nurse Practitioner Acute Care; Nurse Practitioner Family; Nurse Practitioner Psychiatric/Mental Health; Physician Assistant; Social Worker; Admitting Provider Psychiatry & Neurology Psychiatry; Visit Provider Psychiatry & Neurology Psychiatry
DX: F33.3 Major depressive disorder, recurrent, severe with psychotic symptoms (principal); J18.9 Pneumonia, unspecified organism; N17.9 Acute kidney failure, unspecified; I13.0 Hypertensive heart and chronic kidney disease with heart failure and stage 1 through stage 4 chronic kidney disease, or unspecified chronic kidney disease; I25.10 Atherosclerotic heart disease of native coronary artery without angina pectoris; N40.0 Benign prostatic hyperplasia without lower urinary tract symptoms; E55.9 Vitamin D deficiency, unspecified; J32.9 Chronic sinusitis, unspecified; Z63.4 Disappearance and death of family member; N18.32 Chronic kidney disease, stage 3b; I50.9 Heart failure, unspecified; E11.40 Type 2 diabetes mellitus with diabetic neuropathy, unspecified; K42.9 Umbilical hernia without obstruction or gangrene; E86.0 Dehydration; E11.22 Type 2 diabetes mellitus with diabetic chronic kidney disease; Z20.822 Contact with and (suspected) exposure to COVID-19; Z23 Encounter for immunization; Z87.891 Personal history of nicotine dependence; Z86.73 Personal history of transient ischemic attack (TIA), and cerebral infarction without residual deficits; Z91.52 Personal history of nonsuicidal self-harm; Z79.4 Long term (current) use of insulin; Z79.82 Long term (current) use of aspirin; Z79.51 Long term (current) use of inhaled steroids; Z79.899 Other long term (current) drug therapy
CPT/HCPCS: 36415; 70450; 71045; 71046; 71250; 72020; 72100; 72132; 73130; 73521; 74018; 74178; 76775; 80048; 80053; 80061; 81001; 82306; 82330; 82565; 82607; 82728; 82746; 82947; 83036; 83519; 83540; 83605; 83880; 83970; 84100; 84443; 85025; 87040; 87502; 87637; 90656; 93005; 94640; 97116; 97162

== ENCOUNTER 2025-07-14 13:02 | Outpatient (BNV) | payer MEDICARE, SELFPAY | END 2025-08-09 18:30 | PROVIDERS: Admitting Provider Psychiatry & Neurology Psychiatry; Visit Provider Radiology Diagnostic Radiology | DX: K59.00 Constipation, unspecified (principal); R22.31 Localized swelling, mass and lump, right upper limb | CPT/HCPCS: 73130; 74018 ==

== ENCOUNTER → 2025-07-14 13:02 | Outpatient (BNV) | payer MEDICARE, SELFPAY | PROVIDERS: Admitting Provider Psychiatry & Neurology Psychiatry; Visit Provider Internal Medicine Critical Care Medicine | DX: I50.9 Heart failure, unspecified (principal); N17.9 Acute kidney failure, unspecified; N18.32 Chronic kidney disease, stage 3b | CPT/HCPCS: 99222 ==

== ENCOUNTER → 2025-07-14 13:02 | Outpatient (BNV) | payer MEDICARE, MEDICAID, SELFPAY | PROVIDERS: Admitting Provider Psychiatry & Neurology Psychiatry; Visit Provider Nurse Practitioner Family | DX: I50.9 Heart failure, unspecified (principal) | CPT/HCPCS: 99222; 99232; 99499 ==

== ENCOUNTER → 2025-07-14 13:02 | Outpatient (BNV) | payer MEDICARE, MEDICAID, SELFPAY | PROVIDERS: Admitting Provider Psychiatry & Neurology Psychiatry; Visit Provider Psychiatry & Neurology Psychiatry | DX: F33.3 Major depressive disorder, recurrent, severe with psychotic symptoms (principal); N17.9 Acute kidney failure, unspecified; N18.32 Chronic kidney disease, stage 3b | CPT/HCPCS: 90792; 99232 ==

== ENCOUNTER 2025-08-12 07:00 | Outpatient (BNV) | payer MEDICARE, SELFPAY | END 2025-08-30 18:48 | PROVIDERS: Admitting Provider Physician Assistant; Visit Provider Internal Medicine Cardiovascular Disease | DX: I45.10 Unspecified right bundle-branch block (principal) | CPT/HCPCS: 93010 ==

== ENCOUNTER 2025-08-12 07:00 | Outpatient (BNV) | payer MEDICARE, SELFPAY | END 2025-08-26 12:55 | PROVIDERS: Admitting Provider Physician Assistant; Visit Provider Radiology Body Imaging | DX: R05.9 Cough, unspecified (principal) | CPT/HCPCS: 71046 ==

== ENCOUNTER 2025-08-12 07:00 | Outpatient (BNV) | payer MEDICARE, SELFPAY | END 2025-08-12 13:51 | PROVIDERS: Admitting Provider Physician Assistant; Visit Provider Internal Medicine Cardiovascular Disease | DX: I45.10 Unspecified right bundle-branch block (principal) | CPT/HCPCS: 93010 ==

== ENCOUNTER 2025-08-12 07:00 | Outpatient (BNV) | payer MEDICARE, SELFPAY | END 2025-08-14 13:55 | PROVIDERS: Admitting Provider Physician Assistant; Visit Provider Radiology Diagnostic Radiology | DX: J90 Pleural effusion, not elsewhere classified (principal) | CPT/HCPCS: 71045 ==

== ENCOUNTER 2025-08-12 07:00 | Outpatient (BNV) | payer MEDICARE, SELFPAY | END 2025-08-27 09:49 | PROVIDERS: Admitting Provider Physician Assistant; Visit Provider Radiology Vascular & Interventional Radiology | DX: Z03.89 Encounter for observation for other suspected diseases and conditions ruled out (principal) | CPT/HCPCS: 71250 ==

== ENCOUNTER 2025-08-12 07:00 | Inpatient (IN) | payer MEDICARE, SELFPAY ==
--- NOTE | 2025-08-12 | ECG_ITS ---
Test Reason : hyperkalemia Blood Pressure : */* mmHG Vent. Rate : 79 BPM Atrial Rate : 79 BPM P-R Int : 202 ms QRS Dur : 154 ms QT Int : 400 ms P-R-T Axes : 50 -57 27 degrees QTcB Int : 458 ms Normal sinus rhythm Left axis deviation Right bundle branch block Abnormal ECG When compared with ECG of 30-Jul-2025 14:03, Right bundle branch block has replaced Non-specific intra-ventricular conduction block Referred By: Layla Pruitt Electronically Signed By: Gurmeet Larsen
--- NOTE | ~2025-08-12 | CT_ITS ---
CLINICAL HISTORY: Rule out PNA CT chest without contrast Comparison: CT 07/17/2025 Findings: No cardiomegaly. Atherosclerotic disease of the aorta and coronary arteries noted. Several subcentimeter mediastinal lymph nodes are present, similar to prior. No discrete thyroid lesion. Lungs exhibit mild bibasilar airway thickening. Streaky densities are suggestive of atelectasis No significant effusion. No pneumothorax. No displaced rib fracture. The visualized upper abdomen demonstrates significant fecal retention throughout the colon. Impression: Findings suggest small airways disease such as bronchitis. This document has been electronically signed by: Ponce Ivy MD on 08/27/2025 10:49:35
--- NOTE | ~2025-08-12 | XR_ITS ---
EXAMINATION: XR CHEST CLINICAL INFORMATION: cough COMPARISON: Chest radiograph on August 14, 2025 and August 12, 2025 TECHNIQUE: 2 views of the chest were obtained. FINDINGS: Lungs: Ill-defined opacity in the medial aspect of the right lung base appears more pronounced than August 14. Left lung appears clear. Pleura: No pneumothorax. No obvious pleural effusions. Heart/Mediastinum: Unchanged moderate cardiomegaly. No mediastinal widening. Bones: No acute findings. XR/XR chest 2V IMPRESSION: Mild interval worsening of the findings suggestive of airspace disease in the right lung base. Electronically signed by: Kleber Vasquez MD 08/26/2025 01:15 PM [facility] [place], [place]
--- NOTE | ~2025-08-12 | XR_ITS ---
CLINICAL HISTORY: pleural effusion 1 view chest x-ray. Comparison: 08/12/2025 Findings: Mild increase markings overlying right lung base are improved although not completely resolved. No new consolidation. No definable pleural effusions. Cardiac and mediastinal contours appear stable. Bones unremarkable. Impression: 1. Persistent although improved mild increased markings overlying right lung base. Otherwise no new consolidation. This document has been electronically signed by: Héctor Parikh MD on 08/14/2025 14:42:06
--- NOTE | 2025-08-12 06:50 | PM.IMHP ---
History of Present Illness Date of Service: 08/12/25 Attending physician on admission: Akash Hutchinson Chief Complaint: hypoxia pt is a 75 yo romanian speaking male with a pmhx significant for CKD3B, asthma/COPD overlap, coronary artery disease, history of stroke, type 2 diabetes with insulin-dependent, hypertension, BPH, and congestive heart failure initially on [facility] for depression with self harming behavior, who developed acute hypoxia, tachypnea and SOB. he is a difficult historian, but reports SOB and dyspnea. pt received 2L O2 via NC with improvement of O2 and albuterol with mild improvement of sx. labs with hyperkalemia and CXR with new bilateral multifocal pneumonia and small bilateral pleural effusions. pt transferred to medical floor. Review of Systems Constitutional: Constitutional: Denies body ache(s), Reports chills, Denies fatigue, Reports fever(s) and Denies headache(s) Eyes: Eyes: Denies change in vision ENT: Denies headache(s) and Denies nasal discharge Cardiovascular: Cardiovascular: Denies chest pain, Denies rapid heart rate, Denies leg edema, Denies lightheadedness and Reports dyspnea Respiratory: Respiratory: Reports chest congestion, Reports cough, Reports dyspnea and Reports wheezing Gastrointestinal: Gastrointestinal: Denies abdominal pain, Denies nausea and Denies vomiting Genitourinary: Genitourinary: Denies dysuria, Denies urinary frequency and Denies urinary urgency Musculoskeletal: Comments: right flank pain Integumentary/Breasts: Skin/Breast: Denies rash Neurologic: Denies confusion and Denies headache(s) Psychiatric: Psychiatric: Denies confusion Endocrine: Endocrine: Denies fatigue Hematologic/Lymphatic: Hematologic/Lymphatic: Denies easy bleeding Allergic/Immunologic: Allergic/Immunologic: Reports wheezing [facility] Medical History (Updated 08/12/25 @ 06:53 by Layla Pruitt PA-C) Stage 3b chronic kidney disease (CKD) Functional capacity: independent ambulation Social History Housing: Other Do you presently have visiting nurse or other home services: No Comment: 5 minute checks Patient Tobacco Use Status: Former Tobacco user Tobacco use type: Cigarette e-Cigarette/Vaping Use: Never Used Advance Directives: No Advance Directives Information Provided: No service: No Sexual orientation: Straight/Heterosexual Meds Allergies Allergy/AdvReac Type Severity Reaction Status Date / Time Penicillins (PCN) AdvReac Unknown Verified 07/14/25 14:00 Active Medications: Current Medications Albuterol/Ipratropium (Albuterol/Iprat 2.5/0.5mg 3 Ml Ampul.Neb) 3 ml INHALE Q4H PRN PRN Reason: Shortness of Breath/Wheezing Calcium Carbonate (Calcium Carbonate 750 Mg Tab.Chew) 750 mg PO Q4H PRN PRN Reason: Heartburn Dextrose (Dextrose 50 % 25 Gm/50 Ml Syringe) 25 gm IVPUSH Q15M PRN; Protocol PRN Reason: per Hypoglycemia Standing Ord. Glucose (Glucose Gel 15 Gm Gel..Gram.) 15 gm PO Q15M PRN; Protocol PRN Reason: per Hypoglycemia Standing Ord. Heparin Sodium (Porcine) (Heparin Sodium,Porcine 5,000 Unit/Ml Vial) 5,000 unit SUBCUT Q12H MARCIA Ceftriaxone Sodium 1 gm/ (Sodium Chloride) 50 mls @ 100 mls/hr IV Q24H MARCIA Doxycycline Hyclate 100 mg/ (Sodium Chloride) 250 mls @ 166.67 mls/hr IV Q12H MARCIA Insulin Human Lispro (Insulin Lispro 100 Unit/Ml 3 Ml Vial) 0 unit SUBCUT Q6H MARCIA; Protocol Ondansetron HCl (Ondansetron Hcl 4 Mg/2 Ml Vial) 4 mg IVPUSH Q8H PRN PRN Reason: Nausea and Vomiting Sodium Chloride (0.9 % Sodium Chloride Flush 3 Ml Syringe) 3 ml IVFLUSH QSHIFT MARCIA Physical Exam Vital Signs and Narrative: General: AOx3, seen with healthcare interpreter, Resp: crackles bilateral lower lungs, no wheezing, appears in mild respiratory distress but improving throughout exam CVS: S1, S2, RRR GI: +BS, NT, distended Skin: Warm, dry Neuro: Cranial nerves II-XII grossly intact bilaterally. Motor grossly intact bilaterally Extremities: No pitting edema Psych: Appropriate affect, difficult historian Const: General: No confusion Orientation/consciousness: No confusion Neuro: General: No confusion Assessment and Plan (1) Acute and chronic respiratory failure with hypoxia: Status: Acute (2) Multifocal pneumonia: Status: Acute (3) Bilateral pleural effusion: Status: Acute (4) Acute hyperkalemia: Status: Acute (5) Stage 3b chronic kidney disease (CKD): Status: Acute Plan pt with acute hypoxic respiratory failure in the setting of new multifocal pneumonia and small bilateral pleural effusions on CXR transferred from [facility] psych acute hypoxic respiratory failure in the setting of multifocal pneumonia with small bilateral pleural effusions - lactic acid and blood cultures ordered - doxycycline and ceftriaxone - NPO pending swallow eval - aspiration precautions - NUCLEAR TECHNICIAN eval - titrate O2 PRN - monitor CBC and BMP acute hyperkalemia - K 5.9 - lokelma 10 - repeat BMP in 4 hours - monitor on tele Depression with self harming behavior - Per psych team, plan was to D/C home - ativan PRN - 1:1 - re-consult psych when pt medically cleared chronic COPD/asthma, no acute exacerbation - Spiriva, albuterol PRN Coronary artery disease/history of stroke/CHF/hypertension - aspirin, Plavix, atorvastatin, Jardiance,metoprolol, losartan, lasix BID - daily weights 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 Chronic kidney disease Stage 3B - Stable 1.31 - Avoid nephrotoxins - monitor BMP BPH - tamsulosin GERD - PPI Anemia - iron Vitamin-D deficiency - vit D med rec pending from transfer full code VTE prophy: heparin pt with acute hypoxic respiratory failure, pneumonia, pleural effusions, requiring admission for at least 2 midnights stay for IV abx and monitoring. Quality Stroke Does the patient have a stroke diagnosis?: No VTE Prior VTE?: No VTE Risk Level:: Medical - moderate - high VTE Device Contraindication: Treatment Not Indicated VTE Drug Contraindication: N/A - Med Ordered
[2025-08-12 08:00] VITALS: BP 97/69; PULSE 82; RESP 16; TEMP 36.9; O2SAT 95
[2025-08-12] MEDS: 0.9 % Sodium Chloride Flush 3 ML SYRINGE IVFLUSH ×3 (08:27→22:24)
--- NOTE | 2025-08-12 08:53 | MHC.CM.PN ---
CM met with Patient at bedside, with the assist of Chinese translation, and addressed IMM with him, providing Patient with the original and a copy has been placed on the chart. Patient lives in [facility] with his Daughter, but is visiting and was staying with his Granddaughter; it is not an option for Patient to return there. Patient may benefit from a Care Team Consult to determine if Patient is appropriate to return to [facility]. CM has initiated and will follow for dc planning. Patient has a PCP in [place] but he cannot recall the name.
--- NOTE | 2025-08-12 10:13 | P.EN_ITS ---
Event Note Date of Service: 08/12/25 Event Note: seen and examined this morning after transfer from psychiatric floor due to hypoxia/pneumonia History is obtained with the assistance of a personnel analyst patient initially very sleepy but then woke up and sat up in bed asking for food. per the patient observer he had just fallen asleep after coming to the floor. he is a vague historian exam: CV; RRR b/l wheezing with decreased air entry bilaterally; no accessory muscle use abdomen softly distended, no TTP, no guarding or rigidity b/l pitting edema Acute respiratory failure with hypoxia due to multifocal pneumonia with bilateral pleural effusions and acute COPD exacerbation will check vbg to assess for co2 retention although likely pt tired from being up all night continue doxy/ceftriaxone lactic acid wnl, blood cultures pending seen by speech, no signs/symptoms of aspiration, rec regular texture solids with thin liquids continue supplemental oxygen, wean as tolerated ?sleep apnea, overnight oximetry test - may need outpatient sleep study recommend repeat imaging after resolution of infection due to presence of pleural effusions acute copd exacerbation in the setting of multifocal pna will add scheduled breathing treatments and systemic steroids Hyperkalemia repeat level down to 5.1 hold losartan for now repeat BMP in am chronic constipation bowel regimen bp soft hold lasix, losartan Depression with self harming behavior [facility] team eval prior to d/c chronic normocytic anemia H/H at baseline continue iron, b12, thiamine supplementation chronic pain will hold his tramadol, tizanidine for now, if pt more awake in am can resume can continue current dose of gabapentin, if renal fxn worsens may need to alter dose morbid obesity BMI elevated body habitus likely contributing to respiratory symptoms Coronary artery disease/history of stroke/CHF/hypertension aspirin, Plavix, atorvastatin, Jardiance, metoprolol hold losartan for hyperkalemia lasix on hold for soft BP - monitor fluid status and resume as indicated 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 Chronic kidney disease Stage 3B appears stable with baseline renal function Vitamin-D deficiency vit D BPH tamsulosin GERD PPI dvt ppx - heparin Time Spent With Patient Time: Total time managing care of this patient today ____ minutes.
[2025-08-12 10:14] LABS: Potassium 5.1 mmol/L (3.3-5.1)
[2025-08-12 10:18] LABS: Glucose, Whole Blood 196 mg/dL (60-115)
--- NOTE | 2025-08-12 10:21 | PHA.MEDREC ---
Pharmacy Consult ? Medication Reconciliation Pharmacy has completed the medication reconciliation. Reviewed med rec from the admission on [facility] earlier today.
[2025-08-12 10:55] LABS: Venous Blood Gas Refer to POC result
[2025-08-12 10:56] LABS: VBG HCO3 30 mmol/L (22-26)
--- NOTE | 2025-08-12 11:22 | P.CDIM_ITS ---
PROVIDER RESPONSE TEXT: To clarify, the appropriate diagnosis supported by the clinical indicators: Clinically unable to determine (explain): no echo available QUERY TEXT: PHYSICIAN'S DOCUMENTATION REQUEST Date of Query: 08/12/2025 11:10 AM EST Patient Name: Deejay Yu Admit Date: 08/12/2025 Dear Carolyn SOLIS, A review of the medical record indicates additional documentation may be needed. Please review below and update the documentation accordingly. Clinical Indicators: Progress note 08/12/25 - Coronary artery disease/History of stroke/CHF/hypertension BNP 1043.6 Home medication: Furosemide 20mg PO daily Please provide further specificity regarding the most likely type and acuity of CHF you are evaluating, treating, or monitoring. Systolic Please specify if Acute, Chronic, or Acute on chronic, or Unable to determine Diastolic Please specify if Acute, Chronic, or Acute on chronic, or Unable to determine Combined Systolic/Diastolic Please specify if Acute, Chronic, or Acute on chronic, or Unable to determine Other (explain) Clinically unable to determine (explain) Thank you, Josefa Sweeney, CCS, CDIS Use of terms such as suspected, likely, concern for, or probable (associated with a specific diagnosis that is being evaluated, monitored, or treated as if it exists) are acceptable and can be coded in the inpatient setting, when documented at the time of discharge. Please use your independent medical judgment in providing your response. THIS QUERY IS PART OF THE PERMANENT MEDICAL RECORD
[2025-08-12 11:44] LABS: Glucose, Whole Blood 193 mg/dL (60-115)
[2025-08-12 11:54] VITALS: BP 116/62; PULSE 77; RESP 16; TEMP 36.3; O2SAT 96
--- NOTE | 2025-08-12 14:22 | MHC.SL.SWA ---
Speech Pathologist Impression: WFL Risk of Aspiration Due to: Hx stroke, respiratory dx asthma/COPD overlap Dysphasia Diet Status: start on REGULAR/THIN Liquid Consistency and Strategies for Safe Swallow: Liquid Intake Recommendation: Thin Solid Food Consistency: Dietary Recommendations: Regular Oral Medication Intake: Whole with Liquid Please contact the pharmacy regarding appropriate crushable or liquid drug formulations that are available whenever modified delivery is recommended. Supervision While Eating and Drinking for Safe Swallow: Direct Supervision (1:1) Recommendation for Speech: Inpatient Speech Therapy Comment: 1 f/u to monitor tolerance Frequency/Duration: Date Range for Service Req: Timeline to reassess: Coal Hauler Clinican/Clinical Fellow: No Supervisory Statement: I have reviewed and agree with the student/clinical fellow's documentation: N/A Speech Language Pathologist: Elizabeth Templeton M.A., CCC-AIRWORTHINESS INSPECTOR
[2025-08-12 14:58] VITALS: BMI 40.7
--- NOTE | 2025-08-12 15:29 | MHC.CM.PN ---
[facility], Patient is accepted @ [facility] pending medical clearance and completion of the LEANDRO by a SHANON MD OR SW(LEANDRO/[place] document like JAYLENE's MDS that costs $300 to complete). PCP is Dr. Ja Sheridan.CM will follow.
[2025-08-12 15:33] LABS: Glucose, Whole Blood 278 mg/dL (60-115)
[2025-08-12 16:00] VITALS: BP 155/68; PULSE 85; RESP 18; TEMP 36.7; O2SAT 98
[2025-08-12 19:21] VITALS: BP 176/77; PULSE 88; RESP 18; TEMP 36.6; O2SAT 95
[2025-08-12] MEDS: Albuterol/Iprat 2.5/0.5MG 3 ML AMPUL.NEB INHALE (19:21)
[2025-08-12 19:22] VITALS: PULSE 88; RESP 16; O2SAT 98
[2025-08-12 20:48] LABS: Glucose, Whole Blood 457 mg/dL (60-115)
[2025-08-12] MEDS: Insulin Glargine,Hum.rec.anlog 100 UNIT/ML 10 ML VIAL 50 UNIT SUBCUT (21:42)
[2025-08-12 23:05] VITALS: BP 116/55; PULSE 84; RESP 18; TEMP 36.5; O2SAT 94
[2025-08-13] VITALS (9 sets, daily range): BP systolic 104–156; BP diastolic 54–67; PULSE 74–90; RESP 18–20; TEMP 36.1–36.6; O2SAT 88–98
[2025-08-13 00:04] LABS: Glucose, Whole Blood 391 mg/dL (60-115)
[2025-08-13 05:49] LABS: ABG Refer to POC result
[2025-08-13 05:50] LABS: ABG HCO3 27 mmol/L (22-26); ABG O2 % Saturation 99.0 %
[2025-08-13 07:44] LABS: Hematocrit 27.6 % (42.0-52.0); Hemoglobin 8.2 g/dl (14.0-18.0); Mean Corpuscular HGB Conc 29.7 g/dl (31.0-36.0); Mean Corpuscular Hemoglobin 26.6 pg (27.0-33.0); Mean Corpuscular Volume 89.6 fL (80.0-98.0); NRBC Abs Auto 0.020 X10*3/uL (0.0-0.012); NRBC Pct Auto 0.2 /100WBC (0.0-0.2); Platelet Count 242 X10*3/uL (160-400); Red Blood Count 3.08 X10*6/uL (4.60-5.80); White Blood Count 9.7 X10*3/uL (4.8-10.8)
[2025-08-13 08:01] LABS: Glucose, Whole Blood 329 mg/dL (60-115)
[2025-08-13 08:11] LABS: Anion Gap 13 (12-20); Blood Urea Nitrogen 43 mg/dL (9-16); Calcium 9.1 mg/dL (8.4-10.2); Carbon Dioxide 24 mmol/L (22-29); Chloride 101 mmol/L (96-108); Creatinine Clr Calc Pharmacy 53.5; Estimated Glomerular Filt Rate 51; Potassium 5.4 mmol/L (3.3-5.1); Sodium 133 mmol/L (135-145)
[2025-08-13 08:28] LABS: Band Neutrophils Percent 5 % (3-5); Lymphocytes Absolute Manual 0.4 X10*3/uL (1.2-4.9); Lymphocytes Percent Manual 4 % (20-40); Metamyelocytes Absolute 0.1 X10*3/uL; Metamyelocytes Percent 1 %; Monocytes Absolute Manual 0.2 X10*3/uL (0.1-1.2); Monocytes Percent Manual 2 % (2-11); Myelocytes Absolute 0.2 X10*/uL; Myelocytes Percent 2 %; Neutrophils Absolute Manual 8.8 X10*3/uL (2.0-8.3); Neutrophils Percent Manual 86 % (45-73)
[2025-08-13 08:33] LABS: Polychromasia 1+ (0-2) /OIF; RBC Morphology NOTED; Schistocytes 1+ (0-2) /OIF; Spherocytes 2+ (3-5) /OIF
[2025-08-13] MEDS: Insulin Glargine,Hum.rec.anlog 100 UNIT/ML 10 ML VIAL 15 UNIT SUBCUT (08:45)
[2025-08-13] MEDS: Metoprolol Succinate ER 50 MG TAB.ER.24H PO (08:46)
[2025-08-13] MEDS: Ferrous Sulfate 324 MG TABLET.DR PO (08:46)
[2025-08-13] MEDS: 0.9 % Sodium Chloride Flush 3 ML SYRINGE IVFLUSH ×3 (08:57→21:13)
[2025-08-13 11:36] LABS: Glucose, Whole Blood 372 mg/dL (60-115)
--- NOTE | 2025-08-13 11:53 | HO.PM.IMPN ---
Subjective Subjective Date of Service: 08/13/25 Interval History: Patient seen examined at bedside this morning, patient states that his breathing has improved, currently being treated for multifocal pneumonia. Review of Systems Review of Systems: Yes all other systems are reviewed and are negative Physical Exam Exam: Exam: General: AxOx3, No acute distress Head: AT/NC ENT: Moist mucous membranes Neck: supple CVS; RRR, S1 S2 normal Lungs: Mild bilateral rales Abd: Soft non tender, non distended Ext: No edema and no calf tenderness MSK: moving all 4 limbs Skin: No cyanosis or edema Psych: Cooperative with exam Neurology: no focal deficit Vital Signs: Vital Signs: Last Vital Signs Temp 97.8 F 08/13/25 08:00 Pulse 83 08/13/25 08:00 Resp 20 08/13/25 08:00 BP 156/67 H 08/13/25 08:00 Pulse Ox 92 08/13/25 08:00 O2 Del Method Nasal Cannula 08/13/25 08:00 O2 Flow Rate 2 08/13/25 08:00 BMI result Body Mass Index 40.7 Objective Data Active Medications Albuterol/Ipratropium (Albuterol/Iprat 2.5/0.5mg 3 Ml Ampul.Neb) 3 ml INHALE Q4H PRN PRN Reason: Shortness of Breath/Wheezing Albuterol/Ipratropium (Albuterol/Iprat 2.5/0.5mg 3 Ml Ampul.Neb) 3 ml INHALE RQ6H WHILE AWAKE [facility] Last Admin: 08/13/25 08:02 Dose: Not Given Documented By: ELIA Non-Admin Reason: See Note Ascorbic Acid (Ascorbic Acid 500 Mg Tablet) 500 mg PO DAILY [facility] Last Admin: 08/13/25 08:46 Dose: 500 mg Documented By: ANNI Aspirin (Aspirin 81 Mg Tab.Chew) 81 mg PO DAILY [facility] Last Admin: 08/13/25 08:46 Dose: 81 mg Documented By: ANNI Atorvastatin Calcium (Atorvastatin Calcium 40 Mg Tablet) 40 mg PO BEDTIME [facility] Last Admin: 08/12/25 20:38 Dose: 40 mg Documented By: ANA Benzocaine (Throat Lozenge, Medicated Lozenge) 1 lozenge MUCOUS MEM Q2H PRN PRN Reason: Sore Throat Calcium Carbonate (Calcium Carbonate 750 Mg Tab.Chew) 750 mg PO Q4H PRN PRN Reason: Heartburn Cyanocobalamin (Cyanocobalamin (Vitamin B-12) 1,000 Mcg Tablet) 1,000 mcg PO DAILY [facility] Last Admin: 08/13/25 08:46 Dose: 1,000 mcg Documented By: ANNI Dextrose (Dextrose 50 % 25 Gm/50 Ml Syringe) 25 gm IVPUSH Q15M PRN; Protocol PRN Reason: per Hypoglycemia Standing Ord. Docusate Sodium (Docusate Sodium 100 Mg Capsule) 100 mg PO BID [facility] Last Admin: 08/13/25 08:58 Dose: Not Given Documented By: ANNI Non-Admin Reason: Patient Refused Empagliflozin (Empagliflozin 10 Mg Tablet) 10 mg PO DAILY [facility] Last Admin: 08/13/25 08:47 Dose: 10 mg Documented By: ANNI Ergocalciferol (Ergocalciferol (Vitamin D2) 1,250 Mcg Capsule) 1,250 mcg PO Fr@0900 [facility] Ferrous Sulfate (Ferrous Sulfate 324 Mg Tablet.Dr) 324 mg PO DAILY [facility] Last Admin: 08/13/25 08:46 Dose: 324 mg Documented By: ANNI Fluticasone Propionate (Fluticasone Propionate Nasal 16 Gm Topmost) 1 spray NOSTRIL-B DAILY [facility] Last Admin: 08/13/25 11:13 Dose: Not Given Documented By: ANNI Non-Admin Reason: Patient Refused Furosemide (Furosemide 20 Mg Tablet) 20 mg PO DAILY [facility]; Protocol Gabapentin (Gabapentin 600 Mg Tablet) 600 mg PO TID [facility] Last Admin: 08/13/25 08:46 Dose: 600 mg Documented By: ANNI Glucose (Glucose Gel 15 Gm Gel..Gram.) 15 gm PO Q15M PRN; Protocol PRN Reason: per Hypoglycemia Standing Ord. Heparin Sodium (Porcine) (Heparin Sodium,Porcine 5,000 Unit/Ml Vial) 5,000 unit SUBCUT Q12H [facility] Last Admin: 08/13/25 05:41 Dose: 5,000 unit Documented By: ANA Ceftriaxone Sodium 1 gm/ (Sodium Chloride) 50 mls @ 100 mls/hr IV Q24H [facility] Last Infusion: 08/13/25 06:17 Dose: Infused Documented By: ANA Doxycycline Hyclate 100 mg/ (Sodium Chloride) 250 mls @ 166.67 mls/hr IV Q12H [facility] Last Infusion: 08/13/25 11:33 Dose: Infused Documented By: ANNI Insulin Glargine (Insulin Glargine,Hum.Rec.Anlog 100 Unit/Ml 10 Ml Vial) 15 unit SUBCUT DAILY [facility] Last Admin: 08/13/25 08:45 Dose: 15 unit Documented By: ANNI Insulin Glargine (Insulin Glargine,Hum.Rec.Anlog 100 Unit/Ml 10 Ml Vial) 50 unit SUBCUT BEDTIME [facility] Last Admin: 08/12/25 21:42 Dose: 50 unit Documented By: ANA Insulin Human Lispro (Insulin Lispro 100 Unit/Ml 3 Ml Vial) 0 unit SUBCUT QIDAS [facility]; Protocol Last Admin: 08/13/25 08:45 Dose: 8 unit Documented By: ANNI Insulin Human Lispro (Insulin Lispro 100 Unit/Ml 3 Ml Vial) 5 unit SUBCUT QIDAS [facility] Lidocaine (Lidocaine 4 % Patch Adh..Patch) 1 patch TRANSDERMA DAILY PRN; Protocol PRN Reason: R flank pain Lorazepam (Lorazepam 0.5 Mg Tablet) 0.5 mg PO BID PRN PRN Reason: Anxiety Melatonin (Melatonin 3 Mg Tablet) 6 mg PO BEDTIME [facility] Last Admin: 08/12/25 20:38 Dose: 6 mg Documented By: ANA Methylprednisolone Sodium Succinate (Methylprednisolone Sod Succ 40 Mg/Ml Vial) 40 mg IVPUSH Q12H [facility] Last Admin: 08/13/25 08:46 Dose: 40 mg Documented By: ANNI Metoprolol Succinate (Metoprolol Succinate Er 50 Mg Tab.Er.24h) 50 mg PO DAILY [facility]; Protocol Last Admin: 08/13/25 08:46 Dose: 50 mg Documented By: ANNI Montelukast Sodium (Montelukast Sodium 10 Mg Tablet) 10 mg PO BEDTIME [facility] Last Admin: 08/12/25 20:38 Dose: 10 mg Documented By: ANA Omeprazole (Omeprazole 20 Mg Capsule.Dr) 20 mg PO DAILY@0630 [facility] Last Admin: 08/13/25 05:41 Dose: 20 mg Documented By: ANA Ondansetron HCl (Ondansetron Hcl 4 Mg/2 Ml Vial) 4 mg IVPUSH Q8H PRN PRN Reason: Nausea and Vomiting Polyethylene Glycol (Polyethylene Glycol 3350 17 Gm Powd.Pack) 17 gm PO BID [facility] Last Admin: 08/13/25 08:57 Dose: Not Given Documented By: ANNI Non-Admin Reason: Patient Refused Risperidone (Risperidone 1 Mg Tablet) 1 mg PO BID [facility] Last Admin: 08/13/25 08:46 Dose: 1 mg Documented By: ANNI Senna (Sennosides 8.6 Mg Tablet) 8.6 mg PO BEDTIME [facility] Last Admin: 08/12/25 20:38 Dose: 8.6 mg Documented By: ANA Sodium Chloride (0.9 % Sodium Chloride Flush 3 Ml Syringe) 3 ml IVFLUSH QSHIFT [facility] Last Admin: 08/13/25 08:57 Dose: 3 ml Documented By: ANNI Sodium Chloride (Sodium Chloride 0.65 % Nasal 44 Ml Sprbtl) 1 spray NOSTRIL-B Q1H PRN PRN Reason: Nasal Congestion Tamsulosin HCl (Tamsulosin Hcl 0.4 Mg Capsule) 0.4 mg PO BEDTIME [facility] Last Admin: 08/12/25 20:38 Dose: 0.4 mg Documented By: ANA Thiamine HCl (Thiamine Hcl 100 Mg Tablet) 100 mg PO DAILY [facility] Last Admin: 08/13/25 08:46 Dose: 100 mg Documented By: ANNI Tizanidine HCl (Tizanidine Hcl 4 Mg Tablet) 2 mg PO BEDTIME [facility] Tramadol HCl (Tramadol Hcl 50 Mg Tablet) 50 mg PO Q6H PRN PRN Reason: severe left hip pain Labs 08/13/25 06:53 08/13/25 06:53 Labs: Laboratory Results - last 24 hr 08/12/25 08/12/25 08/12/25 15:29 20:43 23:57 MCV MCH MCHC RDW Plt Count MPV Immature Gran % (Auto) Neut % (Auto) Lymph % (Auto) [place] % (Auto) Eos % (Auto) Baso % (Auto) Lymph # (Auto) [place] # (Auto) Eos # (Auto) Baso # (Auto) Abs Immat Gran (auto) Absolute Neuts (auto) Absolute Nucleated RBC Nucleated RBC % (auto) Neutrophils % (Manual) Band Neutrophils % Lymphocytes % (Manual) Monocytes % (Manual) Metamyelocytes % Myelocytes % Abs Neuts (Manual) Lymphocytes # (Manual) Monocytes # (Manual) Metamyelocytes # Myelocytes # Platelet Estimate Plt Morphology Comment RBC Morphology Polychromasia Spherocytes Schistocytes O2 Saturation ABG pH at Pt Temp ABG pCO2 at Pt Temp ABG pO2 at Pt Temp ABG HCO3 ABG Base Excess (Actual) Anion Gap Estim Creat Clear Calc Estimated GFR POC Glucose 278 H 457 H* 391 H* Random Glucose Calcium 08/13/25 08/13/25 08/13/25 05:44 06:53 07:56 MCV 89.6 MCH 26.6 L MCHC 29.7 L RDW 17.7 H Plt Count 242 MPV 11.1 Immature Gran % (Auto) Cancelled Neut % (Auto) Cancelled Lymph % (Auto) Cancelled Traverse % (Auto) Cancelled Eos % (Auto) Cancelled Baso % (Auto) Cancelled Lymph # (Auto) Cancelled Traverse # (Auto) Cancelled Eos # (Auto) Cancelled Baso # (Auto) Cancelled Abs Immat Gran (auto) Cancelled Absolute Neuts (auto) Cancelled Absolute Nucleated RBC 0.020 H Nucleated RBC % (auto) 0.2 Neutrophils % (Manual) 86 H Band Neutrophils % 5 Lymphocytes % (Manual) 4 L Monocytes % (Manual) 2 Metamyelocytes % 1 Myelocytes % 2 Abs Neuts (Manual) 8.8 H Lymphocytes # (Manual) 0.4 L Monocytes # (Manual) 0.2 Metamyelocytes # 0.1 Myelocytes # 0.2 Platelet Estimate NORMAL Plt Morphology Comment NORMAL RBC Morphology NOTED Polychromasia 1+ (0-2) Spherocytes 2+ (3-5) Schistocytes 1+ (0-2) O2 Saturation 99.0 ABG pH at Pt Temp 7.46 H ABG pCO2 at Pt Temp 38 ABG pO2 at Pt Temp 114 H ABG HCO3 27 H ABG Base Excess (Actual) 4.1 Anion Gap 13 Estim Creat Clear Calc 53.5 Estimated GFR 51 POC Glucose 329 H Random Glucose 314 H Calcium 9.1 08/13/25 11:31 MCV MCH MCHC RDW Plt Count MPV Immature Gran % (Auto) Neut % (Auto) Lymph % (Auto) [place]verse % (Auto) Eos % (Auto) Baso % (Auto) Lymph # (Auto) Traverse # (Auto) Eos # (Auto) Baso # (Auto) Abs Immat Gran (auto) Absolute Neuts (auto) Absolute Nucleated RBC Nucleated RBC % (auto) Neutrophils % (Manual) Band Neutrophils % Lymphocytes % (Manual) Monocytes % (Manual) Metamyelocytes % Myelocytes % Abs Neuts (Manual) Lymphocytes # (Manual) Monocytes # (Manual) Metamyelocytes # Myelocytes # Platelet Estimate Plt Morphology Comment RBC Morphology Polychromasia Spherocytes Schistocytes O2 Saturation ABG pH at Pt Temp ABG pCO2 at Pt Temp ABG pO2 at Pt Temp ABG HCO3 ABG Base Excess (Actual) Anion Gap Estim Creat Clear Calc Estimated GFR POC Glucose 372 H* Random Glucose Calcium Assessment and Plan (1) Stage 3b chronic kidney disease (CKD): Status: Acute (2) Acute and chronic respiratory failure with hypoxia: Status: Acute (3) MDD (major depressive disorder), recurrent, severe, with psychosis: Status: Acute (4) Multifocal pneumonia: Status: Acute Plan Acute respiratory failure with hypoxia due to multifocal pneumonia with bilateral pleural effusions and acute COPD exacerbation continue doxy/ceftriaxone continue scheduled breathing treatments and systemic steroids lactic acid wnl, blood cultures pending continue supplemental oxygen, wean as tolerated Hyperkalemia potassium 5.4, lasix restarted hold losartan and rogelio for now chronic constipation bowel regimen Depression with self harming behavior transferred from psych floor ativan PRN 1:1 care team eval prior to d/c chronic normocytic anemia H/H at baseline continue iron, b12, thiamine supplementation chronic pain tramadol and tizanidine resumed can continue current dose of gabapentin, if renal fxn worsens may need to alter dose morbid obesity BMI elevated body habitus likely contributing to respiratory symptoms Coronary artery disease/history of stroke/CHF/hypertension aspirin, Plavix, atorvastatin, Jardiance, metoprolol hold losartan for hyperkalemia will restart lasix 20mg 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 Chronic kidney disease Stage 3B appears stable with baseline renal function Vitamin-D deficiency vit D BPH tamsulosin GERD PPI dvt ppx - heparin Total time managing care of this patient today: 55 minutes. Quality Stroke Does the patient have a stroke diagnosis?: No VTE Prior VTE?: No VTE Risk Level:: Medical - moderate - high VTE Device Contraindication: Treatment Not Indicated VTE Drug Contraindication: N/A - Med Ordered
[2025-08-13 16:13] LABS: Glucose, Whole Blood 265 mg/dL (60-115)
[2025-08-13] MEDS: Albuterol/Iprat 2.5/0.5MG 3 ML AMPUL.NEB INHALE ×2 (18:40→23:14)
[2025-08-13 21:04] LABS: Glucose, Whole Blood 369 mg/dL (60-115)
[2025-08-13] MEDS: Insulin Glargine,Hum.rec.anlog 100 UNIT/ML 10 ML VIAL 50 UNIT SUBCUT (21:12)
[2025-08-14] VITALS (9 sets, daily range): BP systolic 122–174; BP diastolic 56–104; PULSE 68–88; RESP 16–18; TEMP 36.1–37; O2SAT 93–100
[2025-08-14 00:33] LABS: Glucose, Whole Blood 494 mg/dL (60-115)
[2025-08-14 03:58] LABS: Glucose, Whole Blood 437 mg/dL (60-115)
[2025-08-14 04:15] LABS: MANUAL DIFF FLAG NO
[2025-08-14 04:18] LABS: Hematocrit 24.4 % (42.0-52.0); Hemoglobin 7.2 g/dl (14.0-18.0); Imm Gran Abs Auto 0.57 X10*3/uL (0.00-0.03); Imm Gran Pct Auto 4.6 % (0.0-0.4); Lymphocytes Absolute Auto 0.6 X10*3/uL (1.2-4.9); Mean Corpuscular HGB Conc 29.5 g/dl (31.0-36.0); Mean Corpuscular Hemoglobin 26.7 pg (27.0-33.0); Mean Corpuscular Volume 90.4 fL (80.0-98.0); NRBC Abs Auto 0.020 X10*3/uL (0.0-0.012); NRBC Pct Auto 0.2 /100WBC (0.0-0.2); Platelet Count 234 X10*3/uL (160-400); Red Blood Count 2.70 X10*6/uL (4.60-5.80); White Blood Count 12.5 X10*3/uL (4.8-10.8)
[2025-08-14 04:48] LABS: Anion Gap 13 (12-20); Blood Urea Nitrogen 52 mg/dL (9-16); Calcium 8.4 mg/dL (8.4-10.2); Carbon Dioxide 22 mmol/L (22-29); Chloride 101 mmol/L (96-108); Creatinine Clr Calc Pharmacy 50.5; Estimated Glomerular Filt Rate 48; Potassium 5.2 mmol/L (3.3-5.1); Sodium 131 mmol/L (135-145)
[2025-08-14 06:16] LABS: Appearance Urine Clear; Glucose Urine UA >=1000 mg/dL (Negative); PH 5.5 (5.0-9.0); Specific Gravity - Urine 1.025 (1.005-1.025); UMIC TRIGGER UACC YES
[2025-08-14 09:00] LABS: Glucose, Whole Blood 390 mg/dL (60-115)
[2025-08-14] MEDS: Ferrous Sulfate 324 MG TABLET.DR PO (09:12)
[2025-08-14] MEDS: Metoprolol Succinate ER 50 MG TAB.ER.24H PO (09:12)
[2025-08-14] MEDS: Insulin Glargine,Hum.rec.anlog 100 UNIT/ML 10 ML VIAL 15 UNIT SUBCUT (09:13)
[2025-08-14 09:21] LABS: Hematocrit 25.8 % (42.0-52.0); Hemoglobin 7.6 g/dl (14.0-18.0)
[2025-08-14] MEDS: 0.9 % Sodium Chloride Flush 3 ML SYRINGE IVFLUSH ×2 (09:26→17:38)
[2025-08-14 11:03] LABS: Glucose, Whole Blood 366 mg/dL (60-115)
--- NOTE | 2025-08-14 11:49 | P.PNIM_ITS ---
Subjective Subjective Date of Service: 08/14/25 Interval History: Patient seen examined at bedside this morning, patient continues to have rales, patient refusing medications as he is not getting the salt in his diet. Mentioned that his sugars have always been elevated, difficult to control. Review of Systems Review of Systems: Yes all other systems are reviewed and are negative Physical Exam 2 Exam: Exam: General: AxOx3, No acute distress Head: AT/NC ENT: Moist mucous membranes Neck: supple CVS; RRR, S1 S2 normal Lungs: Bilateral rales Abd: Soft non tender, non distended Ext: No edema and no calf tenderness MSK: moving all 4 limbs Skin: No cyanosis or edema Psych: Cooperative with exam Neurology: no focal deficit Vital Signs: Vital Signs: Last Vital Signs Temp 97.1 F 08/14/25 11:41 Pulse 77 08/14/25 11:41 Resp 16 08/14/25 11:41 BP 122/56 L 08/14/25 11:41 Pulse Ox 94 08/14/25 11:41 O2 Del Method Room Air 08/14/25 11:41 O2 Flow Rate 2 08/14/25 07:29 BMI result Body Mass Index 40.7 Objective Data Active Medications Albuterol/Ipratropium (Albuterol/Iprat 2.5/0.5mg 3 Ml Ampul.Neb) 3 ml INHALE Q4H PRN PRN Reason: Shortness of Breath/Wheezing Last Admin: 08/13/25 23:14 Dose: 3 ml Documented By: JOSE Albuterol/Ipratropium (Albuterol/Iprat 2.5/0.5mg 3 Ml Ampul.Neb) 3 ml INHALE RQ6H WHILE AWAKE [facility] Last Admin: 08/14/25 07:52 Dose: Not Given Documented By: SHEILA Non-Admin Reason: Patient Refused Ascorbic Acid (Ascorbic Acid 500 Mg Tablet) 500 mg PO DAILY [facility] Last Admin: 08/14/25 09:12 Dose: 500 mg Documented By: ANNI Aspirin (Aspirin 81 Mg Tab.Chew) 81 mg PO DAILY [facility] Last Admin: 08/14/25 09:12 Dose: 81 mg Documented By: ANNI Atorvastatin Calcium (Atorvastatin Calcium 40 Mg Tablet) 40 mg PO BEDTIME [facility] Last Admin: 08/13/25 20:55 Dose: 40 mg Documented By: PARRISH Benzocaine (Throat Lozenge, Medicated Lozenge) 1 lozenge MUCOUS MEM Q2H PRN PRN Reason: Sore Throat Calcium Carbonate (Calcium Carbonate 750 Mg Tab.Chew) 750 mg PO Q4H PRN PRN Reason: Heartburn Cyanocobalamin (Cyanocobalamin (Vitamin B-12) 1,000 Mcg Tablet) 1,000 mcg PO DAILY [facility] Last Admin: 08/14/25 09:12 Dose: 1,000 mcg Documented By: ANNI Dextrose (Dextrose 50 % 25 Gm/50 Ml Syringe) 25 gm IVPUSH Q15M PRN; Protocol PRN Reason: per Hypoglycemia Standing Ord. Docusate Sodium (Docusate Sodium 100 Mg Capsule) 100 mg PO BID [facility] Last Admin: 08/14/25 09:12 Dose: 100 mg Documented By: ANNI Empagliflozin (Empagliflozin 10 Mg Tablet) 10 mg PO DAILY [facility] Last Admin: 08/14/25 09:12 Dose: 10 mg Documented By: ANNI Ergocalciferol (Ergocalciferol (Vitamin D2) 1,250 Mcg Capsule) 1,250 mcg PO Fr@0900 [facility] Ferrous Sulfate (Ferrous Sulfate 324 Mg Tablet.Dr) 324 mg PO DAILY [facility] Last Admin: 08/14/25 09:12 Dose: 324 mg Documented By: ANNI Fluticasone Propionate (Fluticasone Propionate Nasal 16 Gm [place]) 1 spray NOSTRIL-B DAILY [facility] Last Admin: 08/14/25 09:26 Dose: Not Given Documented By: ANNI Non-Admin Reason: Patient Refused Furosemide (Furosemide 20 Mg Tablet) 20 mg PO DAILY [facility]; Protocol Last Admin: 08/14/25 09:12 Dose: 20 mg Documented By: ANNI Gabapentin (Gabapentin 600 Mg Tablet) 600 mg PO TID [facility] On Hold: 08/13/25 11:55 Resume: 08/15/25 09:00 Last Admin: 08/13/25 08:46 Dose: 600 mg Documented By: ANNI Glucose (Glucose Gel 15 Gm Gel..Gram.) 15 gm PO Q15M PRN; Protocol PRN Reason: per Hypoglycemia Standing Ord. Heparin Sodium (Porcine) (Heparin Sodium,Porcine 5,000 Unit/Ml Vial) 5,000 unit SUBCUT Q12H [facility] Last Admin: 08/14/25 05:48 Dose: 5,000 unit Documented By: CHERYL Ceftriaxone Sodium 1 gm/ (Sodium Chloride) 50 mls @ 100 mls/hr IV Q24H [facility] Last Infusion: 08/14/25 08:01 Dose: Infused Documented By: ANNI Doxycycline Hyclate 100 mg/ (Sodium Chloride) 250 mls @ 166.67 mls/hr IV Q12H [facility] Last Infusion: 08/14/25 10:33 Dose: Infused Documented By: ANNI Insulin Glargine (Insulin Glargine,Hum.Rec.Anlog 100 Unit/Ml 10 Ml Vial) 15 unit SUBCUT DAILY [facility] Last Admin: 08/14/25 09:13 Dose: 15 unit Documented By: ANNI Insulin Glargine (Insulin Glargine,Hum.Rec.Anlog 100 Unit/Ml 10 Ml Vial) 50 unit SUBCUT BEDTIME [facility] Last Admin: 08/13/25 21:12 Dose: 50 unit Documented By: PARRISH Insulin Human Lispro (Insulin Lispro 100 Unit/Ml 3 Ml Vial) 0 unit SUBCUT QIDACHS [facility]; Protocol Last Admin: 08/14/25 11:44 Dose: 10 unit Documented By: ANNI Insulin Human Lispro (Insulin Lispro 100 Unit/Ml 3 Ml Vial) 8 unit SUBCUT QIDACHS [facility] Last Admin: 08/14/25 11:44 Dose: 8 unit Documented By: ANNI Lidocaine (Lidocaine 4 % Patch Adh..Patch) 1 patch TRANSDERMA DAILY PRN; Protocol PRN Reason: R flank pain Lorazepam (Lorazepam 0.5 Mg Tablet) 0.5 mg PO BID PRN PRN Reason: Anxiety Melatonin (Melatonin 3 Mg Tablet) 6 mg PO BEDTIME [facility] Last Admin: 08/13/25 20:55 Dose: 6 mg Documented By: PARRISH Methylprednisolone Sodium Succinate (Methylprednisolone Sod Succ 40 Mg/Ml Vial) 40 mg IVPUSH Q8H [facility] Metoprolol Succinate (Metoprolol Succinate Er 50 Mg Tab.Er.24h) 50 mg PO DAILY [facility]; Protocol Last Admin: 08/14/25 09:12 Dose: 50 mg Documented By: ANNI Montelukast Sodium (Montelukast Sodium 10 Mg Tablet) 10 mg PO BEDTIME [facility] Last Admin: 08/13/25 20:55 Dose: 10 mg Documented By: PARRISH Omeprazole (Omeprazole 20 Mg Capsule.Dr) 20 mg PO DAILY@0630 [facility] Last Admin: 08/14/25 05:48 Dose: 20 mg Documented By: CHERYL Ondansetron HCl (Ondansetron Hcl 4 Mg/2 Ml Vial) 4 mg IVPUSH Q8H PRN PRN Reason: Nausea and Vomiting Polyethylene Glycol (Polyethylene Glycol 3350 17 Gm Powd.Pack) 17 gm PO BID [facility] Last Admin: 08/14/25 09:12 Dose: 17 gm Documented By: ANNI Risperidone (Risperidone 1 Mg Tablet) 1 mg PO BID [facility] Last Admin: 08/14/25 09:12 Dose: 1 mg Documented By: ANNI Senna (Sennosides 8.6 Mg Tablet) 8.6 mg PO BEDTIME [facility] Last Admin: 08/13/25 21:07 Dose: Not Given Documented By: PARRISH Non-Admin Reason: Patient Refused Sodium Chloride (0.9 % Sodium Chloride Flush 3 Ml Syringe) 3 ml IVFLUSH QSWIFT [facility] Last Admin: 08/14/25 09:26 Dose: 3 ml Documented By: ANNI Sodium Chloride (Sodium Chloride 0.65 % Nasal 44 Ml Sprbtl) 1 spray NOSTRIL-B Q1H PRN PRN Reason: Nasal Congestion Tamsulosin HCl (Tamsulosin Hcl 0.4 Mg Capsule) 0.4 mg PO BEDTIME [facility] Last Admin: 08/13/25 20:55 Dose: 0.4 mg Documented By: PARRISH Thiamine HCl (Thiamine Hcl 100 Mg Tablet) 100 mg PO DAILY [facility] Last Admin: 08/14/25 09:12 Dose: 100 mg Documented By: ANNI Tizanidine HCl (Tizanidine Hcl 4 Mg Tablet) 2 mg PO BEDTIME [facility] Last Admin: 08/13/25 20:55 Dose: 2 mg Documented By: PARRISH Tramadol HCl (Tramadol Hcl 50 Mg Tablet) 50 mg PO Q6H PRN PRN Reason: severe left hip pain Labs 08/14/25 08:57 08/14/25 04:02 Labs: Laboratory Results - last 24 hr 08/13/25 08/13/25 08/14/25 16:05 20:31 00:28 MCV MCH MCHC RDW Plt Count MPV Immature Gran % (Auto) Neut % (Auto) Lymph % (Auto) Cherry % (Auto) Eos % (Auto) Baso % (Auto) Lymph # (Auto) Cherry # (Auto) Eos # (Auto) Baso # (Auto) Abs Immat Gran (auto) Absolute Neuts (auto) Absolute Nucleated RBC Nucleated RBC % (auto) Anion Gap Estim Creat Clear Calc Estimated GFR POC Glucose 265 H 369 H* 494 H* Random Glucose Calcium Urine Color Urine Appearance Urine pH Ur Specific Goldsmith Urine Protein Urine Glucose (UA) Urine Ketones Urine Blood Urine Nitrite Ur Leukocyte Esterase Urine RBC Urine WBC Ur Squamous Epith Cells Urine Bacteria Hyaline Casts 08/14/25 08/14/25 08/14/25 03:53 04:02 06:06 MCV 90.4 MCH 26.7 L MCHC 29.5 L RDW 17.6 H Plt Count 234 MPV 10.4 Immature Gran % (Auto) 4.6 H Neut % (Auto) 87.4 H Lymph % (Auto) 4.7 L Cherry % (Auto) 3.0 Eos % (Auto) 0.1 Baso % (Auto) 0.2 Lymph # (Auto) 0.6 L Cherry # (Auto) 0.4 Eos # (Auto) 0.0 Baso # (Auto) 0.0 Abs Immat Gran (auto) 0.57 H Absolute Neuts (auto) 10.9 H Absolute Nucleated RBC 0.020 H Nucleated RBC % (auto) 0.2 Anion Gap 13 Estim Creat Clear Calc 50.5 Estimated GFR 48 POC Glucose 437 H* Random Glucose 485 H* Calcium 8.4 D Urine Color Yellow Urine Appearance Clear Urine pH 5.5 Ur Specific Goldsmith 1.025 Urine Protein Negative Urine Glucose (UA) >=1000 H Urine Ketones Negative Urine Blood Negative Urine Nitrite Negative Ur Leukocyte Esterase Negative Urine RBC 0-2 Urine WBC 0-5 Ur Squamous Epith Cells 0-2 Urine Bacteria None Seen Hyaline Casts 0-2 08/14/25 08/14/25 08:55 10:59 MCV MCH MCHC RDW Plt Count MPV Immature Gran % (Auto) Neut % (Auto) Lymph % (Auto) Cherry % (Auto) Eos % (Auto) Baso % (Auto) Lymph # (Auto) Cherry # (Auto) Eos # (Auto) Baso # (Auto) Abs Immat Gran (auto) Absolute Neuts (auto) Absolute Nucleated RBC Nucleated RBC % (auto) Anion Gap Estim Creat Clear Calc Estimated GFR POC Glucose 390 H* 366 H* Random Glucose Calcium Urine Color Urine Appearance Urine pH Ur Specific Goldsmith Urine Protein Urine Glucose (UA) Urine Ketones Urine Blood Urine Nitrite Ur Leukocyte Esterase Urine RBC Urine WBC Ur Squamous Epith Cells Urine Bacteria Hyaline Casts Assessment and Plan (1) Congestive heart failure: Status: Acute (2) MDD (major depressive disorder), recurrent, severe, with psychosis: Status: Acute (3) Acute and chronic respiratory failure with hypoxia: Status: Acute Plan Assessment: 75 year old who was initially admitted to [facility] for MDD with self harming behavior, developed acute hypoxic respiratory failure requiring supplemental oxygen. on imaging found to have bilateral multifocal pneumonia. started on IV abs Acute respiratory failure with hypoxia due to multifocal pneumonia with bilateral pleural effusions and acute COPD exacerbation continue doxy/ceftriaxone continue scheduled breathing treatments and systemic steroids lactic acid wnl, blood cultures pending continue supplemental oxygen, wean as tolerated will increase methylprednisolone frequency to q8hrs, incentive spirometer ordered. chest x ray Hyperkalemia potassium 5.4, lasix restarted hold losartan and rogelio for now chronic constipation bowel regimen Depression with self harming behavior transferred from psych floor ativan PRN 1:1 care team eval prior to d/c chronic normocytic anemia H/H at baseline continue iron, b12, thiamine supplementation chronic pain tramadol and tizanidine resumed can continue current dose of gabapentin, if renal fxn worsens may need to alter dose morbid obesity BMI elevated body habitus likely contributing to respiratory symptoms Coronary artery disease/history of stroke/CHF/hypertension aspirin, Plavix, atorvastatin, Jardiance, metoprolol hold losartan for hyperkalemia will restart lasix 20mg 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 in setting of MAMADOU Chronic kidney disease Stage 3B appears stable with baseline renal function Vitamin-D deficiency vit D BPH tamsulosin GERD PPI Medication noncompliance -counselling given dvt ppx - heparin Total time managing care of this patient today: 55 minutes. Quality Stroke Does the patient have a stroke diagnosis?: No VTE Prior VTE?: No VTE Risk Level:: Medical - moderate - high VTE Device Contraindication: Treatment Not Indicated VTE Drug Contraindication: N/A - Med Ordered
[2025-08-14] MEDS: Albuterol/Iprat 2.5/0.5MG 3 ML AMPUL.NEB INHALE ×2 (13:58→19:01)
[2025-08-14 16:16] LABS: Glucose, Whole Blood 238 mg/dL (60-115)
[2025-08-14 19:27] LABS: Glucose, Whole Blood 249 mg/dL (60-115)
[2025-08-14] MEDS: Insulin Glargine,Hum.rec.anlog 100 UNIT/ML 10 ML VIAL 50 UNIT SUBCUT (22:03)
[2025-08-15] VITALS (8 sets, daily range): BP systolic 125–151; BP diastolic 60–68; PULSE 68–81; RESP 16–20; TEMP 36.2–37.1; O2SAT 90–96
[2025-08-15 07:13] LABS: Glucose, Whole Blood 327 mg/dL (60-115)
[2025-08-15 07:26] LABS: Anion Gap 13 (12-20); Blood Urea Nitrogen 56 mg/dL (9-16); Calcium 8.8 mg/dL (8.4-10.2); Carbon Dioxide 23 mmol/L (22-29); Chloride 103 mmol/L (96-108); Creatinine Clr Calc Pharmacy 59.2; Estimated Glomerular Filt Rate 58; Potassium 5.0 mmol/L (3.3-5.1); Sodium 134 mmol/L (135-145)
[2025-08-15] MEDS: Albuterol/Iprat 2.5/0.5MG 3 ML AMPUL.NEB INHALE (07:33)
[2025-08-15 07:41] LABS: Hematocrit 31.8 % (42.0-52.0); Hemoglobin 9.5 g/dl (14.0-18.0); Mean Corpuscular HGB Conc 29.9 g/dl (31.0-36.0); Mean Corpuscular Hemoglobin 26.7 pg (27.0-33.0); Mean Corpuscular Volume 89.3 fL (80.0-98.0); NRBC Abs Auto 0.040 X10*3/uL (0.0-0.012); NRBC Pct Auto 0.4 /100WBC (0.0-0.2); Red Blood Count 3.56 X10*6/uL (4.60-5.80); White Blood Count 10.1 X10*3/uL (4.8-10.8)
[2025-08-15] MEDS: Insulin Glargine,Hum.rec.anlog 100 UNIT/ML 10 ML VIAL 15 UNIT SUBCUT (08:20)
[2025-08-15] MEDS: Metoprolol Succinate ER 50 MG TAB.ER.24H PO (08:39)
[2025-08-15] MEDS: Ferrous Sulfate 324 MG TABLET.DR PO (08:40)
[2025-08-15] MEDS: 0.9 % Sodium Chloride Flush 3 ML SYRINGE IVFLUSH ×3 (08:40→23:38)
[2025-08-15 09:11] LABS: Band Neutrophils Percent 5 % (3-5); Monocytes Absolute Manual 0.1 X10*3/uL (0.1-1.2); Monocytes Percent Manual 1 % (2-11); Neutrophils Absolute Manual 9.1 X10*3/uL (2.0-8.3); Neutrophils Percent Manual 85 % (45-73)
[2025-08-15 09:12] LABS: RBC Morphology NOTED
[2025-08-15 09:13] LABS: Lymphocytes Absolute Manual 0.8 X10*3/uL (1.2-4.9); Lymphocytes Percent Manual 8 % (20-40); Metamyelocytes Absolute 0.1 X10*3/uL; Metamyelocytes Percent 1 %; Polychromasia 1+ (0-2) /OIF; Schistocytes 1+ (0-2) /OIF
[2025-08-15 09:18] LABS: Large Platelet PRESENT
[2025-08-15 09:21] LABS: Platelet Count 163 X10*3/uL (160-400)
--- NOTE | 2025-08-15 10:35 | MHC.CM.PN ---
Addendum entered by Laly Swanson 08/15/25 14:26: Per MD, Care Team has determined that IPLOC is not needed. Patient has been accepted at [facility] pending completion of the LEANDRO(CM Director is assisting with making arrangements for the LEANDRO to be completed).CM will follow. Original Note: Per ROUNDS discussion, Patient is medically cleared for dc and need a Care Tram Consult to assist with disposition. CM will follow.
--- NOTE | 2025-08-15 10:38 | PC.NURSE ---
Pt off tele per provider's OK. Sinus Rhythm w/ BBB rate 76. Pt calm and cooperative, sitter at bedside. Refuses bed alarm, steady on his feet. 1+ pitting edema to bilateral legs. Open, healing abrasion to left lower leg. Pt wearing his own clothes.
[2025-08-15 11:23] LABS: Glucose, Whole Blood 196 mg/dL (60-115)
--- NOTE | 2025-08-15 13:30 | P.DS_ITS ---
DS: Providers Provider Date of Service: 08/15/25 Date of admission: 08/12/25 07:00 Date of discharge: 08/15/25 Primary care physician: Unknown Physician Consults: 08/12/25 06:37 Consult for Sitter Routine Reason for consultation: depression, self harm, [facility] pt Has provider been notified: No 08/15/25 10:30 In CARE Team Crisis Consult Routine Comment: Reason for consultation: transfer to [facility] Attending physician on discharge: Nikhil Steele Discharging clinician: Nikhil Steele DS: Diagnosis Discharge Diagnosis (1) Congestive heart failure: Status: Acute (2) MDD (major depressive disorder), recurrent, severe, with psychosis: Status: Acute (3) Acute and chronic respiratory failure with hypoxia: Status: Acute DS: Summary Hospital Course Hospital Course: 75 year old who was initially admitted to [facility] for MDD with self harming behavior on 07/15, developed acute hypoxic respiratory failure requiring supplemental oxygen. on imaging found to have bilateral multifocal pneumonia. treated with IV abs and steroids with improvement of his symptoms. patient developed mild MAMADOU and hyperkalemia, resolved after holding losartan and gabapentin. At this time stable for discharge. Patient at this time states that he feels well, denies any SOB. Acute respiratory failure with hypoxia due to multifocal pneumonia with bilateral pleural effusions and acute COPD exacerbation, resolved continue doxy/ceftriaxone, transitiont to PO doxy and levofloxacin for 3 days s/p iv methylprednisolone, medrol dose romeo ordered Hyperkalemia, resolved K 5.0 today continue lasix hold losartan and rogelio for now chronic constipation bowel regimen Depression with self harming behavior per care team not a patient for psych at this time as no HI/SI chronic normocytic anemia H/H at baseline continue iron, b12, thiamine supplementation chronic pain tramadol and tizanidine resumed gabapentin D/c in the setting of MAMADOU morbid obesity BMI elevated body habitus likely contributing to respiratory symptoms Coronary artery disease/history of stroke/CHF/hypertension aspirin, Plavix, atorvastatin, Jardiance, metoprolol and Lasix hold losartan for hyperkalemia and MAMADOU 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 in setting of MAMADOU, resume as outpatient Chronic kidney disease Stage 3B appears stable with baseline renal function Vitamin-D deficiency vit D BPH tamsulosin GERD PPI Medication noncompliance -counseling given patient stable to discharge to SNF, awaiting placement in [place] Time Attestation Discharge Coordination Time (in mins): 35 minutes Quality: Safe Use of Opioids Does Pt have an Active Cancer Diagnosis on the Problem List?: No Quality: Stroke Does the patient have a stroke diagnosis?: No Physical Exam Exam: Exam: General: AxOx3, No acute distress Head: AT/NC ENT: Moist mucous membranes Neck: supple CVS; RRR, S1 S2 normal Lungs: Clear bilateral breath sounds, no wheezes or crackles Abd: Soft non tender, non distended Ext: No edema and no calf tenderness MSK: moving all 4 limbs Skin: No cyanosis or edema Psych: Cooperative with exam Neurology: no focal deficit Vital Signs: Vital Signs: Last Vital Signs Temp 97.7 F 08/15/25 11:44 Pulse 69 08/15/25 11:44 Resp 16 08/15/25 11:44 BP 132/62 08/15/25 11:44 Pulse Ox 95 08/15/25 11:44 O2 Del Method Room Air 08/15/25 11:44 O2 Flow Rate 2 08/14/25 07:29 BMI result Body Mass Index 40.7 DS: Data Data Completed and Pending Labs on day of discharge: Laboratory Results - last 24 hr 08/14/25 08/14/25 08/15/25 16:09 19:23 06:40 WBC 10.1 RBC 3.56 L D Hgb 9.5 L D Hct 31.8 L D MCV 89.3 MCH 26.7 L MCHC 29.9 L RDW 18.3 H Plt Count 163 D MPV 11.4 Immature Gran % (Auto) Cancelled Neut % (Auto) Cancelled Lymph % (Auto) Cancelled Henderson % (Auto) Cancelled Eos % (Auto) Cancelled Baso % (Auto) Cancelled Lymph # (Auto) Cancelled Henderson # (Auto) Cancelled Eos # (Auto) Cancelled Baso # (Auto) Cancelled Abs Immat Gran (auto) Cancelled Absolute Neuts (auto) Cancelled Absolute Nucleated RBC 0.040 H Nucleated RBC % (auto) 0.4 H Neutrophils % (Manual) 85 H Band Neutrophils % 5 Lymphocytes % (Manual) 8 L Monocytes % (Manual) 1 L Metamyelocytes % 1 Abs Neuts (Manual) 9.1 H Lymphocytes # (Manual) 0.8 L Monocytes # (Manual) 0.1 Metamyelocytes # 0.1 Platelet Estimate NORMAL Large Platelets PRESENT Plt Morphology Comment NOTED RBC Morphology NOTED Polychromasia 1+ (0-2) Schistocytes 1+ (0-2) Sodium 134 L Potassium 5.0 Chloride 103 Carbon Dioxide 23 Anion Gap 13 BUN 56 H Creatinine 1.22 Estim Creat Clear Calc 59.2 Estimated GFR 58 POC Glucose 238 H 249 H Random Glucose 330 H Calcium 8.8 08/15/25 08/15/25 07:09 11:00 WBC RBC Hgb Hct MCV MCH MCHC RDW Plt Count MPV Immature Gran % (Auto) Neut % (Auto) Lymph % (Auto) Henderson % (Auto) Eos % (Auto) Baso % (Auto) Lymph # (Auto) Henderson # (Auto) Eos # (Auto) Baso # (Auto) Abs Immat Gran (auto) Absolute Neuts (auto) Absolute Nucleated RBC Nucleated RBC % (auto) Neutrophils % (Manual) Band Neutrophils % Lymphocytes % (Manual) Monocytes % (Manual) Metamyelocytes % Abs Neuts (Manual) Lymphocytes # (Manual) Monocytes # (Manual) Metamyelocytes # Platelet Estimate Large Platelets Plt Morphology Comment RBC Morphology Polychromasia Schistocytes Sodium Potassium Chloride Carbon Dioxide Anion Gap BUN Creatinine Estim Creat Clear Calc Estimated GFR POC Glucose 327 H 196 H Random Glucose Calcium Discharge Plan Discharge Anticipated Discharge Date/Time: 08/15/25 12:18 Patient Disposition: [facility] Discharge Diagnosis: MDD, Pneumonia Referrals: Physician,Unknown J [Primary Care Provider, Medical] - 1 Week Discharge Medications: New doxycycline monohydrate 100 mg Capsule 100 mg PO Q12H 3 Days Qty: 6 0RF levofloxacin 750 mg Tablet 750 mg PO Q24H 3 Days Qty: 3 0RF methylprednisolone [Medrol (Romeo)] 4 mg tablets,dose pack 4 mg PO DAILY Qty: 21 0RF Rx Instructions: take as per medrol dose romeo recs Continued atorvastatin 40 mg Tablet 40 mg PO BEDTIME Qty: 0 0RF tizanidine 4 mg Tablet 2 mg PO BEDTIME Qty: 0 0RF metoprolol succinate 50 mg Tablet Extended Release 24 Hr 50 mg PO DAILY Qty: 0 0RF tramadol 50 mg Tablet 50 mg PO Q6H PRN (Reason: severe left hip pain) Qty: 0 0RF lorazepam 0.5 mg Tablet 0.5 mg PO BID PRN (Reason: Anxiety) Qty: 0 0RF tamsulosin 0.4 mg Capsule 0.4 mg PO BEDTIME Qty: 0 0RF docusate sodium 100 mg Capsule 100 mg PO BID Qty: 0 0RF aspirin 81 mg Tablet,Chewable 81 mg PO DAILY Qty: 0 0RF furosemide 20 mg Tablet 20 mg PO DAILY Qty: 0 0RF Protocol: Hold for SBP< HOLD for SBP < : 90 albuterol sulfate [Ventolin HFA] 90 mcg/actuation Hfa Aerosol Inhaler 2 puff inhalation RQ4H PRN (Reason: SOB/Wheezing) Qty: 0 0RF fluticasone propionate 50 mcg/actuation Alderson,Suspension 1 spray intranasal DAILY Qty: 0 0RF risperidone 1 mg Tablet 1 mg PO BID Qty: 0 0RF Deep Sea Nasal 0.65 % Aerosol,Alderson 1 spray intranasal Q1H PRN (Reason: Nasal congestion) Qty: 0 0RF ferrous sulfate 324 mg (65 mg iron) Tablet,Delayed Release (Dr/Ec) 324 mg PO DAILY Qty: 0 0RF Sore Throat (benzocaine-menth) 15-3.6 mg Lozenge 1 eduar mucous membrane Q2H PRN (Reason: Sore Throat) Qty: 0 0RF Spiriva Respimat 2.5 mcg/actuation Mist 2 puff inhalation RDAILY Qty: 0 0RF sennosides [Senna Lax] 8.6 mg Tablet 8.6 mg PO BEDTIME Qty: 0 0RF insulin glargine [Lantus U-100 Insulin] 100 unit/mL Solution 15 unit subcut DAILY Qty: 0 0RF insulin glargine [Lantus U-100 Insulin] 100 unit/mL Solution 50 unit subcut BEDTIME Qty: 0 0RF lidocaine [Lidocaine Pain Relief] 4 % Adhesive Patch,Medicated 1 patch transdermal DAILY PRN (Reason: R flank pain) Qty: 0 0RF Protocol: Apply to: Apply to: R flank polyethylene glycol 3350 17 gram Powder In Packet 17 g PO DAILY Qty: 0 0RF cyanocobalamin (vitamin B-12) [Vitamin B-12] 1,000 mcg Tablet 1,000 mcg PO DAILY Qty: 0 0RF melatonin 3 mg Tablet 6 mg PO BEDTIME Qty: 0 0RF pantoprazole 20 mg Tablet,Delayed Release (Dr/Ec) 40 mg PO DAILY Qty: 0 0RF ascorbic acid (vitamin C) [Vitamin C] 500 mg Tablet 500 mg PO DAILY Qty: 0 0RF montelukast 10 mg Tablet 10 mg PO BEDTIME Qty: 0 0RF ergocalciferol (vitamin D2) [Vitamin D2] 1,250 mcg (50,000 unit) Capsule 1,250 mcg PO Fr@0900 Qty: 0 0RF insulin lispro [Admelog U-100 Insulin lispro] 100 unit/mL Solution See Protocol subcut [facility] Qty: 0 0RF Protocol: Insulin Correction Scale Less than or equal to 110 ---- Give (units): 0 111 to 150 Give (units): 0 151 to 200 Give (units): 2 201 to 250 Give (units): 4 251 to 300 Give (units): 6 301 to 350 Give (units): 8 Greater than 350 Give (units): 10 Call MD if Blood Glucose > : 350 thiamine mononitrate (vit B1) 100 mg Tablet 100 mg PO DAILY Qty: 0 0RF Jardiance 10 mg Tablet 10 mg PO DAILY Qty: 0 0RF Discontinued gabapentin 600 mg Tablet 600 mg PO TID Qty: 0 0RF Discharge Orders: Discharge Order (Routine); Ordered 08/15/25 Ordered By: Nikhil Steele Activity on Discharge: As tolerated Stand Alone Forms: Patient Portal Discharge page Print Language: Belarusian Care Plan Goals: continue taking antibiotics for Pneumonia continue with depression medications work with physical therapy Health Concerns: depression with psychosis diabetes pneumonia Plan of Treatment: continue antibioitics and medrol dose romeo follow up with psychiatry as outpatient hold losartan and gabapentin secondary to kidney disease Assessment: 75 year old who was initially admitted to [facility] for MDD with self harming behavior on 07/15, developed acute hypoxic respiratory failure requiring supplemental oxygen. on imaging found to have bilateral multifocal pneumonia. treated with IV abs and steroids with improvement of his symptoms. Stable for discharge. Patient at this time states that he feels well, denies any SOB. Patient Instructions: Bacterial Pneumonia (DC), Depression in Older Adults (DC)
--- NOTE | 2025-08-15 13:37 | P.PNIM_ITS ---
Subjective Subjective Date of Service: 08/15/25 Interval History: Patient seen examined at bedside this morning, patient states that his breathing has improved, ambulating. Denies any complaints at this time. Review of Systems Review of Systems: Yes all other systems are reviewed and are negative Physical Exam 2 Exam: Exam: General: AxOx3, No acute distress Head: AT/NC ENT: Moist mucous membranes Neck: supple CVS; RRR, S1 S2 normal Lungs: Clear bilateral breath sounds, no wheezes or crackles Abd: Soft non tender, non distended Ext: No edema and no calf tenderness MSK: moving all 4 limbs Skin: No cyanosis or edema Psych: Cooperative with exam Neurology: no focal deficit Vital Signs: Vital Signs: Last Vital Signs Temp 97.7 F 08/15/25 11:44 Pulse 69 08/15/25 11:44 Resp 16 08/15/25 11:44 BP 132/62 08/15/25 11:44 Pulse Ox 95 08/15/25 11:44 O2 Del Method Room Air 08/15/25 11:44 O2 Flow Rate 2 08/14/25 07:29 BMI result Body Mass Index 40.7 Objective Data Active Medications Albuterol/Ipratropium (Albuterol/Iprat 2.5/0.5mg 3 Ml Ampul.Neb) 3 ml INHALE Q4H PRN PRN Reason: Shortness of Breath/Wheezing Last Admin: 08/13/25 23:14 Dose: 3 ml Documented By: JOSE Albuterol/Ipratropium (Albuterol/Iprat 2.5/0.5mg 3 Ml Ampul.Neb) 3 ml INHALE RQ6H WHILE AWAKE [facility] Last Admin: 08/15/25 07:33 Dose: 3 ml Documented By: SUDEEP Ascorbic Acid (Ascorbic Acid 500 Mg Tablet) 500 mg PO DAILY [facility] Last Admin: 08/15/25 08:38 Dose: 500 mg Documented By: BIJAL Aspirin (Aspirin 81 Mg Tab.Chew) 81 mg PO DAILY [facility] Last Admin: 08/15/25 08:40 Dose: 81 mg Documented By: BIJAL Atorvastatin Calcium (Atorvastatin Calcium 40 Mg Tablet) 40 mg PO BEDTIME [facility] Last Admin: 08/14/25 22:02 Dose: 40 mg Documented By: JUAN Benzocaine (Throat Lozenge, Medicated Lozenge) 1 lozenge MUCOUS MEM Q2H PRN PRN Reason: Sore Throat Calcium Carbonate (Calcium Carbonate 750 Mg Tab.Chew) 750 mg PO Q4H PRN PRN Reason: Heartburn Last Admin: 08/14/25 18:43 Dose: 750 mg Documented By: GIN Cyanocobalamin (Cyanocobalamin (Vitamin B-12) 1,000 Mcg Tablet) 1,000 mcg PO DAILY [facility] Last Admin: 08/15/25 08:40 Dose: 1,000 mcg Documented By: BIJAL Dextrose (Dextrose 50 % 25 Gm/50 Ml Syringe) 25 gm IVPUSH Q15M PRN; Protocol PRN Reason: per Hypoglycemia Standing Ord. Docusate Sodium (Docusate Sodium 100 Mg Capsule) 100 mg PO BID [facility] Last Admin: 08/15/25 08:39 Dose: 100 mg Documented By: BIJAL Doxycycline Monohydrate (Doxycycline Monohydrate 100 Mg Capsule) 100 mg PO Q12H [facility] Stop: 08/19/25 19:59 Empagliflozin (Empagliflozin 10 Mg Tablet) 10 mg PO DAILY [facility] Last Admin: 08/15/25 08:39 Dose: 10 mg Documented By: BIJAL Ergocalciferol (Ergocalciferol (Vitamin D2) 1,250 Mcg Capsule) 1,250 mcg PO Fr@0900 [facility] Ferrous Sulfate (Ferrous Sulfate 324 Mg Tablet.Dr) 324 mg PO DAILY [facility] Last Admin: 08/15/25 08:40 Dose: 324 mg Documented By: BIJAL Fluticasone Propionate (Fluticasone Propionate Nasal 16 Gm Breaks) 1 spray NOSTRIL-B DAILY [facility] Last Admin: 08/14/25 09:26 Dose: Not Given Documented By: ANNI Non-Admin Reason: Patient Refused Furosemide (Furosemide 20 Mg Tablet) 20 mg PO DAILY [facility]; Protocol Last Admin: 08/15/25 08:37 Dose: 20 mg Documented By: BIJAL Gabapentin (Gabapentin 600 Mg Tablet) 600 mg PO TID [facility] Last Admin: 08/15/25 10:45 Dose: 600 mg Documented By: BIJAL Glucose (Glucose Gel 15 Gm Gel..Gram.) 15 gm PO Q15M PRN; Protocol PRN Reason: per Hypoglycemia Standing Ord. Heparin Sodium (Porcine) (Heparin Sodium,Porcine 5,000 Unit/Ml Vial) 5,000 unit SUBCUT Q12H [facility] Last Admin: 08/15/25 07:16 Dose: 5,000 unit Documented By: JUAN Insulin Glargine (Insulin Glargine,Hum.Rec.Anlog 100 Unit/Ml 10 Ml Vial) 15 unit SUBCUT DAILY [facility] Last Admin: 08/15/25 08:20 Dose: 15 unit Documented By: BIJAL Insulin Glargine (Insulin Glargine,Hum.Rec.Anlog 100 Unit/Ml 10 Ml Vial) 50 unit SUBCUT BEDTIME [facility] Last Admin: 08/14/25 22:03 Dose: 50 unit Documented By: JUAN Insulin Human Lispro (Insulin Lispro 100 Unit/Ml 3 Ml Vial) 0 unit SUBCUT QIDACHS [facility]; Protocol Last Admin: 08/15/25 11:54 Dose: 2 unit Documented By: BIJAL Insulin Human Lispro (Insulin Lispro 100 Unit/Ml 3 Ml Vial) 8 unit SUBCUT QIDACHS [facility] Last Admin: 08/15/25 11:55 Dose: 8 unit Documented By: BIJAL Levofloxacin (Levofloxacin 750 Mg Tablet) 750 mg PO Q24H [facility] Stop: 08/20/25 08:59 Lidocaine (Lidocaine 4 % Patch Adh..Patch) 1 patch TRANSDERMA DAILY PRN; Protocol PRN Reason: R flank pain Lorazepam (Lorazepam 0.5 Mg Tablet) 0.5 mg PO BID PRN PRN Reason: Anxiety Last Admin: 08/14/25 22:02 Dose: 0.5 mg Documented By: JUAN Melatonin (Melatonin 3 Mg Tablet) 6 mg PO BEDTIME [facility] Last Admin: 08/14/25 22:02 Dose: 6 mg Documented By: JUAN Methylprednisolone Sodium Succinate (Methylprednisolone Sod Succ 40 Mg/Ml Vial) 40 mg IVPUSH Q8H [facility] Last Admin: 08/15/25 08:20 Dose: 40 mg Documented By: BIJAL Metoprolol Succinate (Metoprolol Succinate Er 50 Mg Tab.Er.24h) 50 mg PO DAILY [facility]; Protocol Last Admin: 08/15/25 08:39 Dose: 50 mg Documented By: BIJAL Montelukast Sodium (Montelukast Sodium 10 Mg Tablet) 10 mg PO BEDTIME [facility] Last Admin: 08/14/25 22:02 Dose: 10 mg Documented By: JUAN Omeprazole (Omeprazole 20 Mg Capsule.) 20 mg PO DAILY@0630 [facility] Last Admin: 08/15/25 07:16 Dose: 20 mg Documented By: JUAN Ondansetron HCl (Ondansetron Hcl 4 Mg/2 Ml Vial) 4 mg IVPUSH Q8H PRN PRN Reason: Nausea and Vomiting Polyethylene Glycol (Polyethylene Glycol 3350 17 Gm Powd.Pack) 17 gm PO BID [facility] Last Admin: 08/15/25 08:44 Dose: Not Given Documented By: BIJAL Non-Admin Reason: Patient Refused Risperidone (Risperidone 1 Mg Tablet) 1 mg PO BID [facility] Last Admin: 08/15/25 08:39 Dose: 1 mg Documented By: BIJAL Senna (Sennosides 8.6 Mg Tablet) 8.6 mg PO BEDTIME [facility] Last Admin: 08/14/25 22:02 Dose: 8.6 mg Documented By: JUAN Simethicone (Simethicone 80 Mg Tab.Chew) 80 mg PO QIDWMHS PRN PRN Reason: Gas Last Admin: 08/14/25 21:01 Dose: 80 mg Documented By: JUAN Sodium Chloride (0.9 % Sodium Chloride Flush 3 Ml Syringe) 3 ml IVFLUSH QSHIFT [facility] Last Admin: 08/15/25 08:40 Dose: 3 ml Documented By: BIJAL Sodium Chloride (Sodium Chloride 0.65 % Nasal 44 Ml Sprbtl) 1 spray NOSTRIL-B Q1H PRN PRN Reason: Nasal Congestion Tamsulosin HCl (Tamsulosin Hcl 0.4 Mg Capsule) 0.4 mg PO BEDTIME [facility] Last Admin: 08/14/25 22:02 Dose: 0.4 mg Documented By: JUAN Thiamine HCl (Thiamine Hcl 100 Mg Tablet) 100 mg PO DAILY [facility] Last Admin: 08/15/25 08:39 Dose: 100 mg Documented By: BIJAL Tizanidine HCl (Tizanidine Hcl 4 Mg Tablet) 2 mg PO BEDTIME [facility] Last Admin: 08/14/25 22:02 Dose: 2 mg Documented By: JUAN Tramadol HCl (Tramadol Hcl 50 Mg Tablet) 50 mg PO Q6H PRN PRN Reason: severe left hip pain Labs 08/15/25 06:40 08/15/25 06:40 Labs: Laboratory Results - last 24 hr 08/14/25 08/14/25 08/15/25 16:09 19:23 06:40 MCV 89.3 MCH 26.7 L MCHC 29.9 L RDW 18.3 H Plt Count 163 D MPV 11.4 Immature Gran % (Auto) Cancelled Neut % (Auto) Cancelled Lymph % (Auto) Cancelled [place] % (Auto) Cancelled Eos % (Auto) Cancelled Baso % (Auto) Cancelled Lymph # (Auto) Cancelled [place] # (Auto) Cancelled Eos # (Auto) Cancelled Baso # (Auto) Cancelled Abs Immat Gran (auto) Cancelled Absolute Neuts (auto) Cancelled Absolute Nucleated RBC 0.040 H Nucleated RBC % (auto) 0.4 H Neutrophils % (Manual) 85 H Band Neutrophils % 5 Lymphocytes % (Manual) 8 L Monocytes % (Manual) 1 L Metamyelocytes % 1 Abs Neuts (Manual) 9.1 H Lymphocytes # (Manual) 0.8 L Monocytes # (Manual) 0.1 Metamyelocytes # 0.1 Platelet Estimate NORMAL Large Platelets PRESENT Plt Morphology Comment NOTED RBC Morphology NOTED Polychromasia 1+ (0-2) Schistocytes 1+ (0-2) Anion Gap 13 Estim Creat Clear Calc 59.2 Estimated GFR 58 POC Glucose 238 H 249 H Random Glucose 330 H Calcium 8.8 08/15/25 08/15/25 07:09 11:00 MCV MCH MCHC RDW Plt Count MPV Immature Gran % (Auto) Neut % (Auto) Lymph % (Auto) [place] % (Auto) Eos % (Auto) Baso % (Auto) Lymph # (Auto) [place] # (Auto) Eos # (Auto) Baso # (Auto) Abs Immat Gran (auto) Absolute Neuts (auto) Absolute Nucleated RBC Nucleated RBC % (auto) Neutrophils % (Manual) Band Neutrophils % Lymphocytes % (Manual) Monocytes % (Manual) Metamyelocytes % Abs Neuts (Manual) Lymphocytes # (Manual) Monocytes # (Manual) Metamyelocytes # Platelet Estimate Large Platelets Plt Morphology Comment RBC Morphology Polychromasia Schistocytes Anion Gap Estim Creat Clear Calc Estimated GFR POC Glucose 327 H 196 H Random Glucose Calcium Assessment and Plan (1) Stage 3b chronic kidney disease (CKD): Status: Acute (2) MDD (major depressive disorder), recurrent, severe, with psychosis: Status: Acute Plan Acute respiratory failure with hypoxia due to multifocal pneumonia with bilateral pleural effusions and acute COPD exacerbation, resolved continue doxy/ceftriaxone, transitiont to PO doxy and levofloxacin for 3 days s/p iv methylprednisolone, medrol dose glynn ordered Hyperkalemia, resolved K 5.0 today continue lasix hold losartan and rogelio for now chronic constipation bowel regimen Depression with self harming behavior per care team not a patient for psych at this time as no HI/SI chronic normocytic anemia H/H at baseline continue iron, b12, thiamine supplementation chronic pain tramadol and tizanidine resumed gabapentin D/c in the setting of MAMADOU morbid obesity BMI elevated body habitus likely contributing to respiratory symptoms Coronary artery disease/history of stroke/CHF/hypertension aspirin, Plavix, atorvastatin, Jardiance, metoprolol and Lasix hold losartan for hyperkalemia and MAMADOU 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 in setting of MAMADOU, resume as outpatient Chronic kidney disease Stage 3B appears stable with baseline renal function Vitamin-D deficiency vit D BPH tamsulosin GERD PPI Medication noncompliance -counseling given Awaiting to be discharged to SNF, will ask PT/OT if patient still requires SNF services Total time managing care of this patient today: 35 minutes. Quality Stroke Does the patient have a stroke diagnosis?: No VTE Prior VTE?: No VTE Risk Level:: Medical - moderate - high VTE Device Contraindication: Treatment Not Indicated VTE Drug Contraindication: N/A - Med Ordered
--- NOTE | 2025-08-15 14:11 | MHC.CARE ---
Patient evaluated by the CARE Team, he does not require an inpatient psychiatric admission at this time. Provider, Dr. Nikhil Steele updated
--- NOTE | 2025-08-15 15:24 | MHC.SL.SWA ---
Speech Pathologist Impression: WFL Risk of Aspiration Due to: Hx stroke, respiratory dx asthma/COPD overlap Dysphasia Diet Status: Recommend REGULAR/THIN Liquid Consistency and Strategies for Safe Swallow: Liquid Intake Recommendation: Thin Liquid Intake Strategies: Solid Food Consistency: Dietary Recommendations: Regular Additional Modifications to Solid Foods: Oral Medication Intake: Whole with Liquid Please contact the pharmacy regarding appropriate crushable or liquid drug formulations that are available whenever modified delivery is recommended. Compensatory Strategies and Precautions to be Taken for Safe Swallow: Sitting Upright (90 deg) Small Bites and Sips Alternate Liquids/Solids Supervision While Eating and Drinking for Safe Swallow: Direct Supervision (1:1) Foods to Avoid: Hard/[id number] solids; patient well aware of mastication abilities. Swallowing Recommended Treatments: Compens. Strategy Educat. Recommendation for Speech: D/C Comment: Patient tolerating current/unmodified diet. Patient aware of mastication abilities and chooses softer food items. Patient with no s/sx of penetration/aspiration. RN with no concerns and in agreement with discharge. Recommend diet of REGULAR solids, THIN liquids with direct supervision. Patient in agreement with discharge. TV HOST no longer warranted at this level of care. Please re-consult if any difficulties/concerns arise. Frequency/Duration: Date Range for Service Req: Timeline to reassess: Radiation Oncology Manager Clinican/Clinical Fellow: No Supervisory Statement: I have reviewed and agree with the student/clinical fellow's documentation: No Speech Language Pathologist: Makenzie Griffith M.A., [facility]-TV HOST
[2025-08-15 16:41] LABS: Glucose, Whole Blood 160 mg/dL (60-115)
[2025-08-15 20:20] LABS: Glucose, Whole Blood 183 mg/dL (60-115)
[2025-08-15] MEDS: Insulin Glargine,Hum.rec.anlog 100 UNIT/ML 10 ML VIAL 50 UNIT SUBCUT (22:41)
[2025-08-16 03:04] VITALS: BP 123/62; PULSE 67; RESP 16; TEMP 36.2; O2SAT 97
[2025-08-16] MEDS: Albuterol/Iprat 2.5/0.5MG 3 ML AMPUL.NEB INHALE (07:24)
[2025-08-16 07:25] VITALS: PULSE 71; RESP 16; O2SAT 98
[2025-08-16 07:32] LABS: Glucose, Whole Blood 188 mg/dL (60-115)
[2025-08-16 07:41] VITALS: BP 136/63; PULSE 76; RESP 18; TEMP 36.9; O2SAT 96
[2025-08-16] MEDS: Ferrous Sulfate 324 MG TABLET.DR PO (08:10)
[2025-08-16] MEDS: Metoprolol Succinate ER 50 MG TAB.ER.24H PO (08:10)
[2025-08-16] MEDS: Insulin Glargine,Hum.rec.anlog 100 UNIT/ML 10 ML VIAL 15 UNIT SUBCUT (08:10)
[2025-08-16 11:09] VITALS: BP 131/60; PULSE 69; RESP 18; TEMP 36.9; O2SAT 94
[2025-08-16 11:20] LABS: Glucose, Whole Blood 259 mg/dL (60-115)
--- NOTE | 2025-08-16 12:49 | PM.DS ---
DS: Providers Provider Date of Service: 08/16/25 Date of admission: 08/12/25 07:00 Date of discharge: 08/16/25 Primary care physician: Unknown Physician Consults: 08/12/25 06:37 Consult for Sitter Routine Reason for consultation: depression, self harm, [facility] pt Has provider been notified: No 08/15/25 10:30 Inpt CARE Team Crisis Consult Routine Comment: Reason for consultation: transfer to [facility] Attending physician on discharge: Nikhil Steele Discharging clinician: Nikhil Steele DS: Diagnosis Discharge Diagnosis (1) Stage 3b chronic kidney disease (CKD): Status: Acute (2) MDD (major depressive disorder), recurrent, severe, with psychosis: Status: Acute (3) Multifocal pneumonia: Status: Acute DS: Summary Hospital Course Hospital Course: 75 year old who was initially admitted to [facility] for MDD with self harming behavior on 07/15, developed acute hypoxic respiratory failure requiring supplemental oxygen. on imaging found to have bilateral multifocal pneumonia. treated with IV abs and steroids with improvement of his symptoms. patient developed mild MAMADOU and hyperkalemia, resolved after holding losartan and gabapentin. Patient at this time states that he feels well, denies any SOB. patient assessed by PT/OT and does not require any PT/OT at this time Acute respiratory failure with hypoxia due to multifocal pneumonia with bilateral pleural effusions and acute COPD exacerbation, resolved continue doxy/ceftriaxone, transitiont to PO doxy and levofloxacin for 2 days s/p iv methylprednisolone, medrol dose romeo ordered Hyperkalemia, resolved continue lasix hold losartan and rogelio for now, restart as outpatient chronic constipation bowel regimen Depression with self harming behavior per care team not a patient for psych at this time as no HI/SI chronic normocytic anemia H/H at baseline continue iron, b12, thiamine supplementation chronic pain tramadol and tizanidine resumed gabapentin D/c in the setting of MAMADOU morbid obesity BMI elevated body habitus likely contributing to respiratory symptoms Coronary artery disease/history of stroke/CHF/hypertension aspirin, Plavix, atorvastatin, Jardiance, metoprolol and Lasix hold losartan for hyperkalemia and MAMADOU, may restart as outpatient 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 in setting of MAMADOU, resume as outpatient Chronic kidney disease Stage 3B appears stable with baseline renal function Vitamin-D deficiency vit D BPH tamsulosin GERD PPI Time Attestation Discharge Coordination Time (in mins): 35 minutes Quality: Safe Use of Opioids Does Pt have an Active Cancer Diagnosis on the Problem List?: No Quality: Stroke Does the patient have a stroke diagnosis?: No Physical Exam Exam: Exam: General: AxOx3, No acute distress Head: AT/NC ENT: Moist mucous membranes Neck: supple CVS; RRR, S1 S2 normal Lungs: Clear bilateral breath sounds, no wheezes or crackles Abd: Soft non tender, non distended Ext: No edema and no calf tenderness MSK: moving all 4 limbs Skin: No cyanosis or edema Psych: Cooperative with exam Neurology: no focal deficit Vital Signs: Vital Signs: Last Vital Signs Temp 98.4 F 08/16/25 11:09 Pulse 69 08/16/25 11:09 Resp 18 08/16/25 11:09 BP 131/60 08/16/25 11:09 Pulse Ox 94 08/16/25 11:09 O2 Del Method Room Air 08/16/25 11:09 O2 Flow Rate 2 08/14/25 07:29 BMI result Body Mass Index 40.7 DS: Data Data Completed and Pending Labs on day of discharge: Laboratory Results - last 24 hr 08/15/25 08/15/25 08/16/25 16:37 20:16 07:29 POC Glucose 160 H 183 H 188 H 08/16/25 11:10 POC Glucose 259 H Discharge Plan Discharge Anticipated Discharge Date/Time: 08/15/25 12:18 Patient Disposition: Home, Self-Care Discharge Diagnosis: MDD, Pneumonia Referrals: Physician,Unknown J [Primary Care Provider, Medical] - 1 Week Discharge Medications: New doxycycline monohydrate 100 mg Capsule 100 mg PO Q12H 3 Days Qty: 6 0RF levofloxacin 750 mg Tablet 750 mg PO Q24H 3 Days Qty: 3 0RF methylprednisolone [Medrol (Romeo)] 4 mg tablets,dose pack 4 mg PO DAILY Qty: 21 0RF Rx Instructions: take as per medrol dose romeo recs Continued atorvastatin 40 mg Tablet 40 mg PO BEDTIME Qty: 0 0RF tizanidine 4 mg Tablet 2 mg PO BEDTIME Qty: 0 0RF metoprolol succinate 50 mg Tablet Extended Release 24 Hr 50 mg PO DAILY Qty: 0 0RF tramadol 50 mg Tablet 50 mg PO Q6H PRN (Reason: severe left hip pain) Qty: 0 0RF lorazepam 0.5 mg Tablet 0.5 mg PO BID PRN (Reason: Anxiety) Qty: 0 0RF tamsulosin 0.4 mg Capsule 0.4 mg PO BEDTIME Qty: 0 0RF docusate sodium 100 mg Capsule 100 mg PO BID Qty: 0 0RF aspirin 81 mg Tablet,Chewable 81 mg PO DAILY Qty: 0 0RF furosemide 20 mg Tablet 20 mg PO DAILY Qty: 0 0RF Protocol: Hold for SBP< HOLD for SBP < : 90 albuterol sulfate [Ventolin HFA] 90 mcg/actuation Hfa Aerosol Inhaler 2 puff inhalation RQ4H PRN (Reason: SOB/Wheezing) Qty: 0 0RF fluticasone propionate 50 mcg/actuation [place],Suspension 1 spray intranasal DAILY Qty: 0 0RF risperidone 1 mg Tablet 1 mg PO BID Qty: 0 0RF [place] Nasal 0.65 % Aerosol,[place] 1 spray intranasal Q1H PRN (Reason: Nasal congestion) Qty: 0 0RF ferrous sulfate 324 mg (65 mg iron) Tablet,Delayed Release (Dr/Ec) 324 mg PO DAILY Qty: 0 0RF Sore Throat (benzocaine-menth) 15-3.6 mg Lozenge 1 eduar mucous membrane Q2H PRN (Reason: Sore Throat) Qty: 0 0RF Spiriva Respimat 2.5 mcg/actuation Mist 2 puff inhalation RDAILY Qty: 0 0RF sennosides [Senna Lax] 8.6 mg Tablet 8.6 mg PO BEDTIME Qty: 0 0RF insulin glargine [Lantus U-100 Insulin] 100 unit/mL Solution 15 unit subcut DAILY Qty: 0 0RF insulin glargine [Lantus U-100 Insulin] 100 unit/mL Solution 50 unit subcut BEDTIME Qty: 0 0RF lidocaine [Lidocaine Pain Relief] 4 % Adhesive Patch,Medicated 1 patch transdermal DAILY PRN (Reason: R flank pain) Qty: 0 0RF Protocol: Apply to: Apply to: R flank polyethylene glycol 3350 17 gram Powder In Packet 17 g PO DAILY Qty: 0 0RF cyanocobalamin (vitamin B-12) [Vitamin B-12] 1,000 mcg Tablet 1,000 mcg PO DAILY Qty: 0 0RF melatonin 3 mg Tablet 6 mg PO BEDTIME Qty: 0 0RF pantoprazole 20 mg Tablet,Delayed Release (Dr/Ec) 40 mg PO DAILY Qty: 0 0RF ascorbic acid (vitamin C) [Vitamin C] 500 mg Tablet 500 mg PO DAILY Qty: 0 0RF montelukast 10 mg Tablet 10 mg PO BEDTIME Qty: 0 0RF ergocalciferol (vitamin D2) [Vitamin D2] 1,250 mcg (50,000 unit) Capsule 1,250 mcg PO Fr@0900 Qty: 0 0RF insulin lispro [Admelog U-100 Insulin lispro] 100 unit/mL Solution See Protocol subcut QIDACHS Qty: 0 0RF Protocol: Insulin Correction Scale Less than or equal to 110 ---- Give (units): 0 111 to 150 Give (units): 0 151 to 200 Give (units): 2 201 to 250 Give (units): 4 251 to 300 Give (units): 6 301 to 350 Give (units): 8 Greater than 350 Give (units): 10 Call MD if Blood Glucose > : 350 thiamine mononitrate (vit B1) 100 mg Tablet 100 mg PO DAILY Qty: 0 0RF Jardiance 10 mg Tablet 10 mg PO DAILY Qty: 0 0RF Discontinued gabapentin 600 mg Tablet 600 mg PO TID Qty: 0 0RF Discharge Orders: Discharge Order (Routine); Ordered 08/16/25 Ordered By: Nikhil Steele Activity on Discharge: As tolerated Stand Alone Forms: Patient Portal Discharge page Print Language: Lithuanian Care Plan Goals: continue taking antibiotics for Pneumonia continue with depression medications Health Concerns: depression with psychosis diabetes pneumonia Plan of Treatment: continue antibioitics and medrol dose romeo follow up with psychiatry as outpatient hold losartan and gabapentin secondary to kidney disease and high potassium Assessment: 75 year old who was initially admitted to [facility] for MDD with self harming behavior on 07/15, developed acute hypoxic respiratory failure requiring supplemental oxygen. on imaging found to have bilateral multifocal pneumonia. treated with IV abs and steroids with improvement of his symptoms. Stable for discharge. Patient at this time states that he feels well, denies any SOB. Patient Instructions: Bacterial Pneumonia (DC), Depression in Older Adults (DC)
--- NOTE | 2025-08-16 13:54 | P.PNIM_ITS ---
Subjective Subjective Date of Service: 08/16/25 Interval History: Patient seen examined at bedside this morning, patient states that he feels well, ambulating by himself, with mentation issues. Review of Systems Review of Systems: Yes all other systems are reviewed and are negative Physical Exam 2 Exam: Exam: General: AxOx3, No acute distress Head: AT/NC ENT: Moist mucous membranes Neck: supple CVS; RRR, S1 S2 normal Lungs: Clear bilateral breath sounds, no wheezes or crackles Abd: Soft non tender, non distended Ext: No edema and no calf tenderness MSK: moving all 4 limbs Skin: No cyanosis or edema Psych: Cooperative with exam Neurology: no focal deficit Vital Signs: Vital Signs: Last Vital Signs Temp 98.4 F 08/16/25 11:09 Pulse 69 08/16/25 11:09 Resp 18 08/16/25 11:09 BP 131/60 08/16/25 11:09 Pulse Ox 94 08/16/25 11:09 O2 Del Method Room Air 08/16/25 11:09 O2 Flow Rate 2 08/14/25 07:29 BMI result Body Mass Index 40.7 Objective Data Active Medications Albuterol/Ipratropium (Albuterol/Iprat 2.5/0.5mg 3 Ml Ampul.Neb) 3 ml INHALE Q4H PRN PRN Reason: Shortness of Breath/Wheezing Last Admin: 08/13/25 23:14 Dose: 3 ml Documented By: JOSE Albuterol/Ipratropium (Albuterol/Iprat 2.5/0.5mg 3 Ml Ampul.Neb) 3 ml INHALE RQ6H WHILE AWAKE [facility] Last Admin: 08/16/25 07:24 Dose: 3 ml Documented By: BENJAMÍN Ascorbic Acid (Ascorbic Acid 500 Mg Tablet) 500 mg PO DAILY [facility] Last Admin: 08/16/25 08:10 Dose: 500 mg Documented By: CARISA Aspirin (Aspirin 81 Mg Tab.Chew) 81 mg PO DAILY [facility] Last Admin: 08/16/25 08:10 Dose: 81 mg Documented By: CARISA Atorvastatin Calcium (Atorvastatin Calcium 40 Mg Tablet) 40 mg PO BEDTIME [facility] Last Admin: 08/15/25 22:37 Dose: 40 mg Documented By: JUAN Benzocaine (Throat Lozenge, Medicated Lozenge) 1 lozenge MUCOUS MEM Q2H PRN PRN Reason: Sore Throat Calcium Carbonate (Calcium Carbonate 750 Mg Tab.Chew) 750 mg PO Q4H PRN PRN Reason: Heartburn Last Admin: 08/14/25 18:43 Dose: 750 mg Documented By: GIN Cyanocobalamin (Cyanocobalamin (Vitamin B-12) 1,000 Mcg Tablet) 1,000 mcg PO DAILY [facility] Last Admin: 08/16/25 08:10 Dose: 1,000 mcg Documented By: CARISA Dextrose (Dextrose 50 % 25 Gm/50 Ml Syringe) 25 gm IVPUSH Q15M PRN; Protocol PRN Reason: per Hypoglycemia Standing Ord. Docusate Sodium (Docusate Sodium 100 Mg Capsule) 100 mg PO BID [facility] Last Admin: 08/16/25 08:10 Dose: 100 mg Documented By: CARISA Doxycycline Monohydrate (Doxycycline Monohydrate 100 Mg Capsule) 100 mg PO Q12H [facility] Stop: 08/19/25 19:59 Last Admin: 08/16/25 08:10 Dose: 100 mg Documented By: CARISA Empagliflozin (Empagliflozin 10 Mg Tablet) 10 mg PO DAILY [facility] Last Admin: 08/16/25 08:10 Dose: 10 mg Documented By: CARISA Ergocalciferol (Ergocalciferol (Vitamin D2) 1,250 Mcg Capsule) 1,250 mcg PO Fr@0900 [facility] Ferrous Sulfate (Ferrous Sulfate 324 Mg Tablet.Dr) 324 mg PO DAILY [facility] Last Admin: 08/16/25 08:10 Dose: 324 mg Documented By: CARISA Fluticasone Propionate (Fluticasone Propionate Nasal 16 Gm [place]) 1 spray NOSTRIL-B DAILY [facility] Last Admin: 08/16/25 08:14 Dose: 1 spray Documented By: CARISA Furosemide (Furosemide 20 Mg Tablet) 20 mg PO DAILY [facility]; Protocol Last Admin: 08/16/25 08:18 Dose: 20 mg Documented By: CARISA Gabapentin (Gabapentin 600 Mg Tablet) 600 mg PO TID [facility] Last Admin: 08/16/25 08:10 Dose: 600 mg Documented By: CARISA Glucose (Glucose Gel 15 Gm Gel..Gram.) 15 gm PO Q15M PRN; Protocol PRN Reason: per Hypoglycemia Standing Ord. Heparin Sodium (Porcine) (Heparin Sodium,Porcine 5,000 Unit/Ml Vial) 5,000 unit SUBCUT Q12H [facility] Last Admin: 08/16/25 06:37 Dose: 5,000 unit Documented By: RACHEL Insulin Glargine (Insulin Glargine,Hum.Rec.Anlog 100 Unit/Ml 10 Ml Vial) 15 unit SUBCUT DAILY [facility] Last Admin: 08/16/25 08:10 Dose: 15 unit Documented By: CARISA Insulin Glargine (Insulin Glargine,Hum.Rec.Anlog 100 Unit/Ml 10 Ml Vial) 50 unit SUBCUT BEDTIME [facility] Last Admin: 08/15/25 22:41 Dose: 50 unit Documented By: JUAN Insulin Human Lispro (Insulin Lispro 100 Unit/Ml 3 Ml Vial) 0 unit SUBCUT QIDACHS [facility]; Protocol Last Admin: 08/16/25 11:50 Dose: 6 unit Documented By: CARISA Insulin Human Lispro (Insulin Lispro 100 Unit/Ml 3 Ml Vial) 8 unit SUBCUT QIDACHS [facility] Last Admin: 08/16/25 11:50 Dose: 8 unit Documented By: CARISA Levofloxacin (Levofloxacin 750 Mg Tablet) 750 mg PO Q24H [facility] Stop: 08/20/25 08:59 Last Admin: 08/16/25 08:10 Dose: 750 mg Documented By: CARISA Lidocaine (Lidocaine 4 % Patch Adh..Patch) 1 patch TRANSDERMA DAILY PRN; Protocol PRN Reason: R flank pain Lorazepam (Lorazepam 0.5 Mg Tablet) 0.5 mg PO BID PRN PRN Reason: Anxiety Last Admin: 08/14/25 22:02 Dose: 0.5 mg Documented By: JUAN Melatonin (Melatonin 3 Mg Tablet) 6 mg PO BEDTIME [facility] Last Admin: 08/15/25 22:37 Dose: 6 mg Documented By: JUAN Methylprednisolone Sodium Succinate (Methylprednisolone Sod Succ 40 Mg/Ml Vial) 40 mg IVPUSH Q8H [facility] Last Admin: 08/16/25 08:10 Dose: 40 mg Documented By: CARISA Metoprolol Succinate (Metoprolol Succinate Er 50 Mg Tab.Er.24h) 50 mg PO DAILY [facility]; Protocol Last Admin: 08/16/25 08:10 Dose: 50 mg Documented By: CARISA Montelukast Sodium (Montelukast Sodium 10 Mg Tablet) 10 mg PO BEDTIME [facility] Last Admin: 08/15/25 22:38 Dose: 10 mg Documented By: JUAN Omeprazole (Omeprazole 20 Mg Capsule.Dr) 20 mg PO DAILY@0630 [facility] Last Admin: 08/16/25 06:37 Dose: 20 mg Documented By: RACHEL Ondansetron HCl (Ondansetron Hcl 4 Mg/2 Ml Vial) 4 mg IVPUSH Q8H PRN PRN Reason: Nausea and Vomiting Polyethylene Glycol (Polyethylene Glycol 3350 17 Gm Powd.Pack) 17 gm PO BID [facility] Last Admin: 08/16/25 08:12 Dose: 17 gm Documented By: CARISA Risperidone (Risperidone 1 Mg Tablet) 1 mg PO BID [facility] Last Admin: 08/16/25 08:10 Dose: 1 mg Documented By: CARISA Senna (Sennosides 8.6 Mg Tablet) 8.6 mg PO BEDTIME [facility] Last Admin: 08/15/25 22:38 Dose: 8.6 mg Documented By: JUAN Simethicone (Simethicone 80 Mg Tab.Chew) 80 mg PO QIDWMHS PRN PRN Reason: Gas Last Admin: 08/14/25 21:01 Dose: 80 mg Documented By: JUAN Sodium Chloride (0.9 % Sodium Chloride Flush 3 Ml Syringe) 3 ml IVFLUSH QSHIFT [facility] Last Admin: 08/16/25 08:11 Dose: Not Given Documented By: CARISA Non-Admin Reason: IV Running Sodium Chloride (Sodium Chloride 0.65 % Nasal 44 Ml Sprbtl) 1 spray NOSTRIL-B Q1H PRN PRN Reason: Nasal Congestion Tamsulosin HCl (Tamsulosin Hcl 0.4 Mg Capsule) 0.4 mg PO BEDTIME [facility] Last Admin: 08/15/25 22:37 Dose: 0.4 mg Documented By: JUAN Thiamine HCl (Thiamine Hcl 100 Mg Tablet) 100 mg PO DAILY [facility] Last Admin: 08/16/25 08:10 Dose: 100 mg Documented By: CARISA Tizanidine HCl (Tizanidine Hcl 4 Mg Tablet) 2 mg PO BEDTIME [facility] Last Admin: 08/15/25 22:38 Dose: 2 mg Documented By: JUAN Tramadol HCl (Tramadol Hcl 50 Mg Tablet) 50 mg PO Q6H PRN PRN Reason: severe left hip pain Labs 08/15/25 06:40 08/15/25 06:40 Labs: Laboratory Results - last 24 hr 08/15/25 08/15/25 08/16/25 16:37 20:16 07:29 POC Glucose 160 H 183 H 188 H 08/16/25 11:10 POC Glucose 259 H Assessment and Plan (1) Depression: Status: Acute Plan 75 year old who was initially admitted to [facility] for MDD with self harming behavior on 07/15, developed acute hypoxic respiratory failure requiring supplemental oxygen. on imaging found to have bilateral multifocal pneumonia. treated with IV abs and steroids with improvement of his symptoms. patient developed mild MAMADOU and hyperkalemia, resolved after holding losartan and gabapentin. Patient at this time states that he feels well, denies any SOB. patient assessed by PT/OT and does not require any PT/OT at this time. however unable to take care of himself Acute respiratory failure with hypoxia due to multifocal pneumonia with bilateral pleural effusions and acute COPD exacerbation, resolved continue doxy/ceftriaxone, transitiont to PO doxy and levofloxacin for 2 days s/p iv methylprednisolone, medrol dose glynn ordered Hyperkalemia, resolved continue lasix hold losartan and rogelio for now, restart as outpatient chronic constipation bowel regimen Depression with self harming behavior per care team not a patient for psych at this time as no HI/SI chronic normocytic anemia H/H at baseline continue iron, b12, thiamine supplementation chronic pain tramadol and tizanidine resumed gabapentin D/c in the setting of MAMADOU morbid obesity BMI elevated body habitus likely contributing to respiratory symptoms Coronary artery disease/history of stroke/CHF/hypertension aspirin, Plavix, atorvastatin, Jardiance, metoprolol and Lasix hold losartan for hyperkalemia and MAMADOU, may restart as outpatient 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 in setting of MAMADOU, resume as outpatient Chronic kidney disease Stage 3B appears stable with baseline renal function Vitamin-D deficiency vit D BPH tamsulosin GERD PPI Total time managing care of this patient today: 35 minutes. Quality Stroke Does the patient have a stroke diagnosis?: No VTE Prior VTE?: No VTE Risk Level:: Medical - moderate - high VTE Device Contraindication: Treatment Not Indicated VTE Drug Contraindication: N/A - Med Ordered
--- NOTE | 2025-08-16 14:41 | MHC.CM.PN ---
With Patient's approval, SHANNAN spoke with Granddaughter/only contact/Sudhir @ [phone]. Patient has no family who can take Patient home to their home. It is Sudhir's goal for Patient to go to [facility] and SHANNAN reassured Sudhir that SHANNAN is working toward getting the LEANDRO completed. SHANNAN will continue to follow.
[2025-08-16 15:12] VITALS: BP 124/58; PULSE 59; RESP 18; TEMP 36.7; O2SAT 95
[2025-08-16 16:17] LABS: Glucose, Whole Blood 223 mg/dL (60-115)
[2025-08-16] MEDS: 0.9 % Sodium Chloride Flush 3 ML SYRINGE IVFLUSH ×2 (16:31→20:52)
[2025-08-16 19:14] VITALS: BP 129/55; PULSE 67; RESP 18; TEMP 36.3; O2SAT 94
[2025-08-16 20:05] LABS: Glucose, Whole Blood 185 mg/dL (60-115)
[2025-08-16] MEDS: Insulin Glargine,Hum.rec.anlog 100 UNIT/ML 10 ML VIAL 50 UNIT SUBCUT (20:51)
[2025-08-17] VITALS: BP 114/57; PULSE 65; RESP 20; TEMP 36.4; O2SAT 92
[2025-08-17 07:10] VITALS: BP 120/59; PULSE 69; RESP 18; TEMP 37.2; O2SAT 97
[2025-08-17 07:17] LABS: Glucose, Whole Blood 52 mg/dL (60-115)
[2025-08-17 07:55] LABS: Glucose, Whole Blood 98 mg/dL (60-115)
[2025-08-17] MEDS: Ferrous Sulfate 324 MG TABLET.DR PO (08:17)
[2025-08-17] MEDS: Metoprolol Succinate ER 50 MG TAB.ER.24H PO (08:17)
[2025-08-17] MEDS: 0.9 % Sodium Chloride Flush 3 ML SYRINGE IVFLUSH ×2 (08:20→17:00)
[2025-08-17 09:12] LABS: Glucose, Whole Blood 142 mg/dL (60-115)
[2025-08-17] MEDS: Insulin Glargine,Hum.rec.anlog 100 UNIT/ML 10 ML VIAL 15 UNIT SUBCUT (10:39)
[2025-08-17 11:13] VITALS: BP 147/65; PULSE 62; RESP 18; TEMP 36.6; O2SAT 99
[2025-08-17 11:20] LABS: Glucose, Whole Blood 150 mg/dL (60-115)
[2025-08-17 15:18] VITALS: BP 113/54; PULSE 60; RESP 18; TEMP 36.4; O2SAT 94
--- NOTE | 2025-08-17 15:43 | HO.PM.IMPN ---
Subjective Subjective Date of Service: 08/17/25 Interval History: no complaints, states cough and dyspnea have improved Review of Systems Review of Systems: Yes all other systems are reviewed and are negative Physical Exam Vital Signs: Vital Signs: Last Vital Signs Temp 97.5 F 08/17/25 15:18 Pulse 60 08/17/25 15:18 Resp 18 08/17/25 15:18 BP 113/54 L 08/17/25 15:18 Pulse Ox 94 08/17/25 15:18 O2 Del Method Room Air 08/17/25 15:18 O2 Flow Rate 2 08/14/25 07:29 BMI result Body Mass Index 40.7 Gen: in no acute distress HEENT: sclera anicteric, moist mucus membranes Neck: supple Lungs: diminished Heart: regular rate and rhythm, no murmurs Abd: soft, non-tender, non-distended Ext: no edema Skin: warm/well-perfused Neuro: alert and oriented x3, no focal findings Psych: restricted affect, impaired insight Objective Data Active Medications Albuterol/Ipratropium (Albuterol/Iprat 2.5/0.5mg 3 Ml Ampul.Neb) 3 ml INHALE Q4H PRN PRN Reason: Shortness of Breath/Wheezing Last Admin: 08/13/25 23:14 Dose: 3 ml Documented By: JOSE Albuterol/Ipratropium (Albuterol/Iprat 2.5/0.5mg 3 Ml Ampul.Neb) 3 ml INHALE RQ6H WHILE AWAKE [facility] Last Admin: 08/17/25 14:24 Dose: Not Given Documented By: MAVIS Non-Admin Reason: Patient Refused Ascorbic Acid (Ascorbic Acid 500 Mg Tablet) 500 mg PO DAILY [facility] Last Admin: 08/17/25 08:17 Dose: 500 mg Documented By: VIKY Aspirin (Aspirin 81 Mg Tab.Chew) 81 mg PO DAILY [facility] Last Admin: 08/17/25 08:17 Dose: 81 mg Documented By: VIKY Atorvastatin Calcium (Atorvastatin Calcium 40 Mg Tablet) 40 mg PO BEDTIME [facility] Last Admin: 08/16/25 20:51 Dose: 40 mg Documented By: NEEL Benzocaine (Throat Lozenge, Medicated Lozenge) 1 lozenge MUCOUS MEM Q2H PRN PRN Reason: Sore Throat Calcium Carbonate (Calcium Carbonate 750 Mg Tab.Chew) 750 mg PO Q4H PRN PRN Reason: Heartburn Last Admin: 08/14/25 18:43 Dose: 750 mg Documented By: GIN Cyanocobalamin (Cyanocobalamin (Vitamin B-12) 1,000 Mcg Tablet) 1,000 mcg PO DAILY [facility] Last Admin: 08/17/25 08:17 Dose: 1,000 mcg Documented By: VIKY Dextrose (Dextrose 50 % 25 Gm/50 Ml Syringe) 25 gm IVPUSH Q15M PRN; Protocol PRN Reason: per Hypoglycemia Standing Ord. Docusate Sodium (Docusate Sodium 100 Mg Capsule) 100 mg PO BID [facility] Last Admin: 08/17/25 08:17 Dose: 100 mg Documented By: VIKY Doxycycline Monohydrate (Doxycycline Monohydrate 100 Mg Capsule) 100 mg PO Q12H [facility] Stop: 08/19/25 19:59 Last Admin: 08/17/25 08:17 Dose: 100 mg Documented By: VIKY Empagliflozin (Empagliflozin 10 Mg Tablet) 10 mg PO DAILY [facility] Last Admin: 08/17/25 08:17 Dose: 10 mg Documented By: VIKY Ergocalciferol (Ergocalciferol (Vitamin D2) 1,250 Mcg Capsule) 1,250 mcg PO Fr@0900 [facility] Ferrous Sulfate (Ferrous Sulfate 324 Mg Tablet.Dr) 324 mg PO DAILY [facility] Last Admin: 08/17/25 08:17 Dose: 324 mg Documented By: VIKY Fluticasone Propionate (Fluticasone Propionate Nasal 16 Gm [place]) 1 spray NOSTRIL-B DAILY [facility] Last Admin: 08/17/25 08:21 Dose: 1 spray Documented By: VIKY Furosemide (Furosemide 20 Mg Tablet) 20 mg PO DAILY [facility]; Protocol Last Admin: 08/17/25 08:17 Dose: 20 mg Documented By: VIKY Gabapentin (Gabapentin 600 Mg Tablet) 600 mg PO TID [facility] Last Admin: 08/17/25 08:17 Dose: 600 mg Documented By: VIKY Glucose (Glucose Gel 15 Gm Gel..Gram.) 15 gm PO Q15M PRN; Protocol PRN Reason: per Hypoglycemia Standing Ord. Heparin Sodium (Porcine) (Heparin Sodium,Porcine 5,000 Unit/Ml Vial) 5,000 unit SUBCUT Q12H [facility] Last Admin: 08/17/25 05:57 Dose: Not Given Documented By: NEEL Non-Admin Reason: Patient Refused Insulin Glargine (Insulin Glargine,Hum.Rec.Anlog 100 Unit/Ml 10 Ml Vial) 15 unit SUBCUT DAILY [facility] Last Admin: 08/17/25 10:39 Dose: 15 unit Documented By: VIKY Insulin Glargine (Insulin Glargine,Hum.Rec.Anlog 100 Unit/Ml 10 Ml Vial) 40 unit SUBCUT BEDTIME [facility] Insulin Human Lispro (Insulin Lispro 100 Unit/Ml 3 Ml Vial) 0 unit SUBCUT QIDACHS [facility]; Protocol Last Admin: 08/17/25 11:32 Dose: Not Given Documented By: VIKY Non-Admin Reason: No Insulin Coverage Insulin Human Lispro (Insulin Lispro 100 Unit/Ml 3 Ml Vial) 8 unit SUBCUT QIDACHS [facility] Last Admin: 08/17/25 11:54 Dose: Not Given Documented By: VIKY Non-Admin Reason: Physician Held Med Levofloxacin (Levofloxacin 750 Mg Tablet) 750 mg PO Q24H [facility] Stop: 08/20/25 08:59 Last Admin: 08/17/25 08:17 Dose: 750 mg Documented By: VIKY Lidocaine (Lidocaine 4 % Patch Adh..Patch) 1 patch TRANSDERMA DAILY PRN; Protocol PRN Reason: R flank pain Melatonin (Melatonin 3 Mg Tablet) 6 mg PO BEDTIME [facility] Last Admin: 08/16/25 20:51 Dose: 6 mg Documented By: NEEL Metoprolol Succinate (Metoprolol Succinate Er 50 Mg Tab.Er.24h) 50 mg PO DAILY [facility]; Protocol Last Admin: 08/17/25 08:17 Dose: 50 mg Documented By: VIKY Montelukast Sodium (Montelukast Sodium 10 Mg Tablet) 10 mg PO BEDTIME [facility] Last Admin: 08/16/25 20:50 Dose: 10 mg Documented By: NEEL Omeprazole (Omeprazole 20 Mg Capsule.Dr) 20 mg PO DAILY@0630 [facility] Last Admin: 08/17/25 05:56 Dose: Not Given Documented By: NEEL Non-Admin Reason: Patient Refused Ondansetron HCl (Ondansetron Hcl 4 Mg/2 Ml Vial) 4 mg IVPUSH Q8H PRN PRN Reason: Nausea and Vomiting Polyethylene Glycol (Polyethylene Glycol 3350 17 Gm Powd.Pack) 17 gm PO BID [facility] Last Admin: 08/17/25 08:16 Dose: 17 gm Documented By: VIKY Prednisone (Prednisone 20 Mg Tablet) 40 mg PO DAILY [facility] Last Admin: 08/17/25 08:17 Dose: 40 mg Documented By: VIKY Risperidone (Risperidone 1 Mg Tablet) 1 mg PO BID [facility] Last Admin: 08/17/25 08:17 Dose: 1 mg Documented By: VIKY Senna (Sennosides 8.6 Mg Tablet) 8.6 mg PO BEDTIME [facility] Last Admin: 08/16/25 20:51 Dose: 8.6 mg Documented By: NEEL Simethicone (Simethicone 80 Mg Tab.Chew) 80 mg PO QIDWMHS PRN PRN Reason: Gas Last Admin: 08/14/25 21:01 Dose: 80 mg Documented By: JUAN Sodium Chloride (0.9 % Sodium Chloride Flush 3 Ml Syringe) 3 ml IVFLUSH QSHIFT [facility] Last Admin: 08/17/25 08:20 Dose: 3 ml Documented By: VIKY Sodium Chloride (Sodium Chloride 0.65 % Nasal 44 Ml Sprbtl) 1 spray NOSTRIL-B Q1H PRN PRN Reason: Nasal Congestion Tamsulosin HCl (Tamsulosin Hcl 0.4 Mg Capsule) 0.4 mg PO BEDTIME [facility] Last Admin: 08/16/25 20:51 Dose: 0.4 mg Documented By: NEEL Thiamine HCl (Thiamine Hcl 100 Mg Tablet) 100 mg PO DAILY [facility] Last Admin: 08/17/25 08:17 Dose: 100 mg Documented By: VIKY Tizanidine HCl (Tizanidine Hcl 4 Mg Tablet) 2 mg PO BEDTIME [facility] Last Admin: 08/16/25 20:50 Dose: 2 mg Documented By: NEEL Tramadol HCl (Tramadol Hcl 50 Mg Tablet) 50 mg PO Q6H PRN PRN Reason: severe left hip pain Labs 08/15/25 06:40 08/15/25 06:40 Labs: Laboratory Results - last 24 hr 08/16/25 08/16/2525 16:11 20:01 07:13 POC Glucose 223 H 185 H 52 L* 08/17/25 08/17/25 08/17/25 07:51 09:09 11:16 POC Glucose 98 142 H 150 H Assessment and Plan (1) Depression: Status: Acute Plan 75yo M initially admitted to [facility] 07/15/25 for MDD with self-harming behavior, developed hypoxia and transferred to hospitalist service 08/12 for treatment of multifocal PNA, COPD exacerbation, MAMADOU, hyperkalemia. Does not need IPLOC but unable to take care of self, awaiting SNF placement acute hypoxic respiratory failure due to multifocal PNA with bilateral pleural effusions and acute COPD exacerbation - treated with doxycycline + ceftriaxone 08/14-08/17, levofloxacin + doxycycline 08/17-08/19, was on IV methylprednisolone and on prednisone taper now over next 7d - weaned off O2 acute hyperK - resolved after stopping losartan chronic constipation - bowel regimen depression with self-harm behavior - per CARE Team no SI/HI and does not need IPLOC at this time - continue risperidone chronic normocytic anemia - continue b12 + iron chronic pain - continue tramadol + tizanidine + gabapentin prerenal MAMADOU - resolved after fluid hydration CAD and hx stroke - ASA, clopidogrel, atorvastatin CHF - losartan held as above; continue empagliflozin, metoprolol succinate, furosemide morbid obesity - diet/exercise counseling DM2 with polyneuropathy and steroid-induced hyperglycemia overnight hypoglycemia - reduce hs glargine by 20%; continue AM glargine at same dose; correction-dose lispro [d/c fixed dos CKD3b - SCr at baseline BPH - tamsulosin GERD - PPI VTE ppx: [facility]FH dispo: awaiting placement at SNF in [place] In my clinical judgment, the patient requires continued inpatient hospitalization for the following reasons: placement Total time managing care of this patient today: 35 minutes. Quality Stroke Does the patient have a stroke diagnosis?: No VTE Prior VTE?: No VTE Risk Level:: Medical - moderate - high VTE Device Contraindication: Treatment Not Indicated VTE Drug Contraindication: N/A - Med Ordered
[2025-08-17 15:45] LABS: Glucose, Whole Blood 253 mg/dL (60-115)
[2025-08-17 19:03] VITALS: BP 133/63; PULSE 66; RESP 18; TEMP 36.6; O2SAT 100
[2025-08-17 20:42] LABS: Glucose, Whole Blood 316 mg/dL (60-115)
[2025-08-17] MEDS: Insulin Glargine,Hum.rec.anlog 100 UNIT/ML 10 ML VIAL 40 UNIT SUBCUT (20:52)
[2025-08-17 22:52] VITALS: BP 129/60; PULSE 70; RESP 18; TEMP 36.4; O2SAT 93
[2025-08-18 04:00] VITALS: BP 140/63; PULSE 70; RESP 18; TEMP 36.3; O2SAT 98
[2025-08-18 07:40] LABS: Glucose, Whole Blood 122 mg/dL (60-115)
[2025-08-18 07:46] VITALS: BP 157/64; PULSE 69; RESP 18; TEMP 36.3; O2SAT 96
[2025-08-18] MEDS: Insulin Glargine,Hum.rec.anlog 100 UNIT/ML 10 ML VIAL 15 UNIT SUBCUT (09:37)
[2025-08-18] MEDS: Ferrous Sulfate 324 MG TABLET.DR PO (09:41)
[2025-08-18] MEDS: Metoprolol Succinate ER 50 MG TAB.ER.24H PO (09:42)
[2025-08-18] MEDS: 0.9 % Sodium Chloride Flush 3 ML SYRINGE IVFLUSH (09:47)
[2025-08-18 11:46] LABS: Glucose, Whole Blood 122 mg/dL (60-115)
[2025-08-18 11:51] VITALS: BP 133/70; PULSE 69; RESP 18; TEMP 36; O2SAT 99
--- NOTE | 2025-08-18 12:32 | P.PNIM_ITS ---
Subjective Subjective Date of Service: 08/18/25 Interval History: This history was taken in Yi from the patient. Cough improved No dyspnea Review of Systems Review of Systems: Yes all other systems are reviewed and are negative Physical Exam 2 Vital Signs: Vital Signs: Last Vital Signs Temp 96.8 F 08/18/25 11:51 Pulse 69 08/18/25 11:51 Resp 18 08/18/25 11:51 BP 133/70 08/18/25 11:51 Pulse Ox 99 08/18/25 11:51 O2 Del Method Room Air 08/18/25 11:51 O2 Flow Rate 2 08/14/25 07:29 BMI result Body Mass Index 40.7 Gen: in no acute distress HEENT: sclera anicteric, moist mucus membranes Neck: supple Lungs: diminished Heart: regular rate and rhythm, no murmurs Abd: soft, non-tender, non-distended, obese Ext: no edema Skin: warm/well-perfused Neuro: alert and oriented x3, no focal findings Psych: restricted affect, impaired insight Objective Data Active Medications Albuterol/Ipratropium (Albuterol/Iprat 2.5/0.5mg 3 Ml Ampul.Neb) 3 ml INHALE Q4H PRN PRN Reason: Shortness of Breath/Wheezing Last Admin: 08/13/25 23:14 Dose: 3 ml Documented By: JOSE Albuterol/Ipratropium (Albuterol/Iprat 2.5/0.5mg 3 Ml Ampul.Neb) 3 ml INHALE RQ6H WHILE AWAKE REPLACED BY [facility] Last Admin: 08/18/25 07:58 Dose: Not Given Documented By: ZAY Non-Admin Reason: Patient Refused Ascorbic Acid (Ascorbic Acid 500 Mg Tablet) 500 mg PO DAILY REPLACED BY [facility] Last Admin: 08/18/25 09:41 Dose: 500 mg Documented By: MYNOR Aspirin (Aspirin 81 Mg Tab.Chew) 81 mg PO DAILY REPLACED BY [facility] Last Admin: 08/18/25 09:42 Dose: 81 mg Documented By: MYNOR Atorvastatin Calcium (Atorvastatin Calcium 40 Mg Tablet) 40 mg PO BEDTIME REPLACED BY [facility] Last Admin: 08/17/25 20:51 Dose: 40 mg Documented By: BETH Benzocaine (Throat Lozenge, Medicated Lozenge) 1 lozenge MUCOUS MEM Q2H PRN PRN Reason: Sore Throat Calcium Carbonate (Calcium Carbonate 750 Mg Tab.Chew) 750 mg PO Q4H PRN PRN Reason: Heartburn Last Admin: 08/14/25 18:43 Dose: 750 mg Documented By: GIN Cyanocobalamin (Cyanocobalamin (Vitamin B-12) 1,000 Mcg Tablet) 1,000 mcg PO DAILY REPLACED BY [facility] Last Admin: 08/18/25 09:42 Dose: 1,000 mcg Documented By: MYNOR Dextrose (Dextrose 50 % 25 Gm/50 Ml Syringe) 25 gm IVPUSH Q15M PRN; Protocol PRN Reason: per Hypoglycemia Standing Ord. Docusate Sodium (Docusate Sodium 100 Mg Capsule) 100 mg PO BID REPLACED BY [facility] Last Admin: 08/18/25 09:42 Dose: 100 mg Documented By: MYNOR Doxycycline Monohydrate (Doxycycline Monohydrate 100 Mg Capsule) 100 mg PO Q12H REPLACED BY [facility] Stop: 08/19/25 19:59 Last Admin: 08/18/25 09:42 Dose: 100 mg Documented By: MYNOR Empagliflozin (Empagliflozin 10 Mg Tablet) 10 mg PO DAILY REPLACED BY [facility] Last Admin: 08/18/25 09:42 Dose: 10 mg Documented By: MYNOR Ergocalciferol (Ergocalciferol (Vitamin D2) 1,250 Mcg Capsule) 1,250 mcg PO Fr@0900 REPLACED BY [facility] Ferrous Sulfate (Ferrous Sulfate 324 Mg Tablet.Dr) 324 mg PO DAILY REPLACED BY [facility] Last Admin: 08/18/25 09:41 Dose: 324 mg Documented By: MYNOR Fluticasone Propionate (Fluticasone Propionate Nasal 16 Gm Jewell) 1 spray NOSTRIL-B DAILY REPLACED BY [facility] Last Admin: 08/18/25 11:36 Dose: Not Given Documented By: MYNOR Non-Admin Reason: Patient Refused Furosemide (Furosemide 20 Mg Tablet) 20 mg PO DAILY REPLACED BY [facility]; Protocol Last Admin: 08/18/25 09:43 Dose: 20 mg Documented By: MYNOR Gabapentin (Gabapentin 600 Mg Tablet) 600 mg PO TID REPLACED BY [facility] Last Admin: 08/18/25 09:42 Dose: 600 mg Documented By: MYNOR Glucose (Glucose Gel 15 Gm Gel..Gram.) 15 gm PO Q15M PRN; Protocol PRN Reason: per Hypoglycemia Standing Ord. Heparin Sodium (Porcine) (Heparin Sodium,Porcine 5,000 Unit/Ml Vial) 5,000 unit SUBCUT BID@0800,2000 REPLACED BY [facility] Insulin Glargine (Insulin Glargine,Hum.Rec.Anlog 100 Unit/Ml 10 Ml Vial) 15 unit SUBCUT DAILY REPLACED BY [facility] Last Admin: 08/18/25 09:37 Dose: 15 unit Documented By: MYNOR Insulin Glargine (Insulin Glargine,Hum.Rec.Anlog 100 Unit/Ml 10 Ml Vial) 40 unit SUBCUT BEDTIME REPLACED BY [facility] Last Admin: 08/17/25 20:52 Dose: 40 unit Documented By: BETH Insulin Human Lispro (Insulin Lispro 100 Unit/Ml 3 Ml Vial) 0 unit SUBCUT QIDACHS REPLACED BY [facility]; Protocol Last Admin: 08/18/25 11:59 Dose: Not Given Documented By: MYNOR Non-Admin Reason: No Insulin Coverage Levofloxacin (Levofloxacin 750 Mg Tablet) 750 mg PO Q24H REPLACED BY [facility] Stop: 08/20/25 08:59 Last Admin: 08/18/25 09:42 Dose: 750 mg Documented By: MYNOR Lidocaine (Lidocaine 4 % Patch Adh..Patch) 1 patch TRANSDERMA DAILY PRN; Protocol PRN Reason: R flank pain Melatonin (Melatonin 3 Mg Tablet) 6 mg PO BEDTIME REPLACED BY [facility] Last Admin: 08/17/25 20:52 Dose: 6 mg Documented By: BETH Metoprolol Succinate (Metoprolol Succinate Er 50 Mg Tab.Er.24h) 50 mg PO DAILY REPLACED BY [facility]; Protocol Last Admin: 08/18/25 09:42 Dose: 50 mg Documented By: MYNOR Montelukast Sodium (Montelukast Sodium 10 Mg Tablet) 10 mg PO BEDTIME REPLACED BY [facility] Last Admin: 08/17/25 20:51 Dose: 10 mg Documented By: BETH Omeprazole (Omeprazole 20 Mg Capsule.Dr) 20 mg PO DAILY@0800 REPLACED BY [facility] Ondansetron HCl (Ondansetron Hcl 4 Mg/2 Ml Vial) 4 mg IVPUSH Q8H PRN PRN Reason: Nausea and Vomiting Polyethylene Glycol (Polyethylene Glycol 3350 17 Gm Powd.Pack) 17 gm PO BID REPLACED BY [facility] Last Admin: 08/18/25 09:41 Dose: Not Given Documented By: MYNOR Non-Admin Reason: Patient Refused Prednisone (Prednisone 20 Mg Tablet) 40 mg PO DAILY REPLACED BY [facility]; Taper Stop: 08/25/25 08:59 Last Admin: 08/18/25 09:43 Dose: 40 mg Documented By: MYNOR Risperidone (Risperidone 1 Mg Tablet) 1 mg PO BID REPLACED BY [facility] Last Admin: 08/18/25 09:42 Dose: 1 mg Documented By: MYNOR Senna (Sennosides 8.6 Mg Tablet) 8.6 mg PO BEDTIME REPLACED BY [facility] Last Admin: 08/17/25 20:52 Dose: 8.6 mg Documented By: BETH Simethicone (Simethicone 80 Mg Tab.Chew) 80 mg PO QIDWMHS PRN PRN Reason: Gas Last Admin: 08/14/25 21:01 Dose: 80 mg Documented By: JUAN Sodium Chloride (0.9 % Sodium Chloride Flush 3 Ml Syringe) 3 ml IVFLUSH QSHIFT REPLACED BY [facility] Last Admin: 08/18/25 09:47 Dose: 3 ml Documented By: MYNOR Sodium Chloride (Sodium Chloride 0.65 % Nasal 44 Ml Sprbtl) 1 spray NOSTRIL-B Q1H PRN PRN Reason: Nasal Congestion Tamsulosin HCl (Tamsulosin Hcl 0.4 Mg Capsule) 0.4 mg PO BEDTIME REPLACED BY [facility] Last Admin: 08/17/25 20:51 Dose: 0.4 mg Documented By: BETH Thiamine HCl (Thiamine Hcl 100 Mg Tablet) 100 mg PO DAILY REPLACED BY [facility] Last Admin: 08/18/25 09:42 Dose: 100 mg Documented By: MYNOR Tizanidine HCl (Tizanidine Hcl 4 Mg Tablet) 2 mg PO BEDTIME REPLACED BY [facility] Last Admin: 08/17/25 20:53 Dose: 2 mg Documented By: BETH Tramadol HCl (Tramadol Hcl 50 Mg Tablet) 50 mg PO Q6H PRN PRN Reason: severe left hip pain Labs 08/15/25 06:40 08/15/25 06:40 Labs: Laboratory Results - last 24 hr 08/17/25 08/17/25 08/18/25 15:41 20:39 07:36 POC Glucose 253 H 316 H 122 H 08/18/25 11:42 POC Glucose 122 H Assessment and Plan (1) Depression: Status: Acute Plan 75yo M initially admitted to [facility] 07/15/25 for MDD with self-harming behavior, developed hypoxia and transferred to hospitalist service 08/12 for treatment of multifocal PNA, COPD exacerbation, MAMADOU, hyperkalemia. Does not need IPLOC but unable to take care of self, awaiting SNF placement [id number] acute hypoxic respiratory failure due to multifocal PNA with bilateral pleural effusions and acute COPD exacerbation - treated with doxycycline + ceftriaxone 08/14-08/17, levofloxacin + doxycycline 08/17-08/19, was on IV methylprednisolone and on prednisone taper now to complete 08/25 - weaned off O2 acute hyperK - resolved after stopping losartan chronic constipation - bowel regimen depression with self-harm behavior - per CARE Team no SI/HI and does not need IPLOC at this time - continue risperidone chronic normocytic anemia - continue B12 + iron chronic pain - continue tramadol + tizanidine + gabapentin prerenal MAMADOU - resolved after fluid hydration CAD and hx stroke - ASA, clopidogrel, atorvastatin CHF - losartan held as above; continue empagliflozin, metoprolol succinate, furosemide morbid obesity - diet/exercise counseling DM2 with polyneuropathy and steroid-induced hyperglycemia overnight hypoglycemia - reduce hs glargine by 20%; continued AM glargine at same dose; also on correction-dose lispro. Hypoglycemia has resolved. CKD3b - SCr at baseline BPH - tamsulosin GERD - PPI VTE ppx: enoxaparin dispo: awaiting placement at SNF in [place] In my clinical judgment, the patient requires continued inpatient hospitalization for the following reasons: placement Total time managing care of this patient today: 30 minutes. Quality Stroke Does the patient have a stroke diagnosis?: No VTE Prior VTE?: No VTE Risk Level:: Medical - moderate - high VTE Device Contraindication: Treatment Not Indicated VTE Drug Contraindication: N/A - Med Ordered
--- NOTE | 2025-08-18 13:41 | PC.NURSE ---
Safety discussion with pt w diesel electrician present. Pt refusing alarm and camera, states he will call for assistance to [place], is steady on his feet. Will continue to monitor with frequent checks.
--- NOTE | 2025-08-18 14:21 | MHC.CM.PN ---
This conventional underwriter submitted all documentation to [place] [employer] RN screener. Check sent via certified mail. Awaiting response @ this time
[2025-08-18 15:21] VITALS: BP 129/58; PULSE 65; RESP 18; TEMP 35.7; O2SAT 99
[2025-08-18 16:04] LABS: Glucose, Whole Blood 196 mg/dL (60-115)
[2025-08-18 19:09] VITALS: BP 103/50; PULSE 70; RESP 18; TEMP 36.1; O2SAT 97
[2025-08-18 20:13] LABS: Glucose, Whole Blood 276 mg/dL (60-115)
[2025-08-18] MEDS: Insulin Glargine,Hum.rec.anlog 100 UNIT/ML 10 ML VIAL 40 UNIT SUBCUT (20:22)
[2025-08-18 23:46] VITALS: BP 166/66; PULSE 76; RESP 18; TEMP 36.4; O2SAT 100
[2025-08-19 03:09] VITALS: BP 156/64; PULSE 80; RESP 18; TEMP 36.3; O2SAT 96
[2025-08-19 07:48] LABS: Glucose, Whole Blood 86 mg/dL (60-115)
[2025-08-19 07:50] VITALS: BP 130/59; PULSE 60; RESP 16; TEMP 36.1; O2SAT 98
[2025-08-19] MEDS: Metoprolol Succinate ER 50 MG TAB.ER.24H PO (08:49)
[2025-08-19] MEDS: Ferrous Sulfate 324 MG TABLET.DR PO (08:49)
[2025-08-19] MEDS: Insulin Glargine,Hum.rec.anlog 100 UNIT/ML 10 ML VIAL 15 UNIT SUBCUT (09:05)
--- NOTE | 2025-08-19 10:22 | HO.PM.IMPN ---
Subjective Subjective Date of Service: 08/19/25 Interval History: This history was taken in Frisian from the patient. refusing breathing treatments no cough or dyspnea Review of Systems Review of Systems: Yes all other systems are reviewed and are negative Physical Exam Vital Signs: Vital Signs: Last Vital Signs Temp 96.9 F 08/19/25 07:50 Pulse 60 08/19/25 07:50 Resp 16 08/19/25 07:50 BP 130/59 L 08/19/25 07:50 Pulse Ox 98 08/19/25 07:50 O2 Del Method Room Air 08/19/25 07:50 O2 Flow Rate 2 08/14/25 07:29 BMI result Body Mass Index 40.7 Gen: in no acute distress HEENT: sclera anicteric, moist mucus membranes Neck: supple Lungs: diminished Heart: regular rate and rhythm, no murmurs Abd: soft, non-tender, non-distended, obese Ext: no edema Skin: warm/well-perfused Neuro: alert and oriented x3, no focal findings Psych: restricted affect, impaired insight Objective Data Active Medications Albuterol/Ipratropium (Albuterol/Iprat 2.5/0.5mg 3 Ml Ampul.Neb) 3 ml INHALE Q4H PRN PRN Reason: Shortness of Breath/Wheezing Last Admin: 08/13/25 23:14 Dose: 3 ml Documented By: JOSE Albuterol/Ipratropium (Albuterol/Iprat 2.5/0.5mg 3 Ml Ampul.Neb) 3 ml INHALE RQ6H WHILE AWAKE [facility] Last Admin: 08/19/25 07:34 Dose: Not Given Documented By: SUDEEP Non-Admin Reason: Patient Refused Ascorbic Acid (Ascorbic Acid 500 Mg Tablet) 500 mg PO DAILY [facility] Last Admin: 08/19/25 08:50 Dose: 500 mg Documented By: MYNOR Aspirin (Aspirin 81 Mg Tab.Chew) 81 mg PO DAILY [facility] Last Admin: 08/19/25 08:50 Dose: 81 mg Documented By: MYNOR Atorvastatin Calcium (Atorvastatin Calcium 40 Mg Tablet) 40 mg PO BEDTIME [facility] Last Admin: 08/18/25 20:23 Dose: 40 mg Documented By: ALYSIA Benzocaine (Throat Lozenge, Medicated Lozenge) 1 lozenge MUCOUS MEM Q2H PRN PRN Reason: Sore Throat Calcium Carbonate (Calcium Carbonate 750 Mg Tab.Chew) 750 mg PO Q4H PRN PRN Reason: Heartburn Last Admin: 08/14/25 18:43 Dose: 750 mg Documented By: GIN Cyanocobalamin (Cyanocobalamin (Vitamin B-12) 1,000 Mcg Tablet) 1,000 mcg PO DAILY [facility] Last Admin: 08/19/25 08:50 Dose: 1,000 mcg Documented By: MYNOR Dextrose (Dextrose 50 % 25 Gm/50 Ml Syringe) 25 gm IVPUSH Q15M PRN; Protocol PRN Reason: per Hypoglycemia Standing Ord. Docusate Sodium (Docusate Sodium 100 Mg Capsule) 100 mg PO BID [facility] Last Admin: 08/19/25 08:49 Dose: 100 mg Documented By: MYNOR Doxycycline Monohydrate (Doxycycline Monohydrate 100 Mg Capsule) 100 mg PO Q12H [facility] Stop: 08/19/25 19:59 Last Admin: 08/19/25 08:49 Dose: 100 mg Documented By: MYNOR Empagliflozin (Empagliflozin 10 Mg Tablet) 10 mg PO DAILY [facility] Last Admin: 08/19/25 08:49 Dose: 10 mg Documented By: MYNOR Enoxaparin Sodium (Enoxaparin Sodium 40 Mg/0.4 Ml Syringe) 40 mg SUBCUT Q24H [facility] Last Admin: 08/18/25 16:17 Dose: 40 mg Documented By: MYNOR Ergocalciferol (Ergocalciferol (Vitamin D2) 1,250 Mcg Capsule) 1,250 mcg PO Fr@0900 [facility] Last Admin: 08/19/25 08:50 Dose: 1,250 mcg Documented By: MYNOR Ferrous Sulfate (Ferrous Sulfate 324 Mg Tablet.) 324 mg PO DAILY [facility] Last Admin: 08/19/25 08:49 Dose: 324 mg Documented By: MYNOR Fluticasone Propionate (Fluticasone Propionate Nasal 16 Gm Berry) 1 spray NOSTRIL-B DAILY [facility] Last Admin: 08/19/25 08:47 Dose: 1 spray Documented By: MYNOR Furosemide (Furosemide 20 Mg Tablet) 20 mg PO DAILY [facility]; Protocol Last Admin: 08/19/25 08:50 Dose: 20 mg Documented By: MYNOR Gabapentin (Gabapentin 600 Mg Tablet) 600 mg PO TID [facility] Last Admin: 08/19/25 08:49 Dose: 600 mg Documented By: MYNOR Glucose (Glucose Gel 15 Gm Gel..Gram.) 15 gm PO Q15M PRN; Protocol PRN Reason: per Hypoglycemia Standing Ord. Insulin Glargine (Insulin Glargine,Hum.Rec.Anlog 100 Unit/Ml 10 Ml Vial) 15 unit SUBCUT DAILY [facility] Last Admin: 08/19/25 09:05 Dose: 15 unit Documented By: MYNOR Insulin Glargine (Insulin Glargine,Hum.Rec.Anlog 100 Unit/Ml 10 Ml Vial) 40 unit SUBCUT BEDTIME [facility] Last Admin: 08/18/25 20:22 Dose: 40 unit Documented By: ALYSIA Insulin Human Lispro (Insulin Lispro 100 Unit/Ml 3 Ml Vial) 0 unit SUBCUT QIDACHS [facility]; Protocol Last Admin: 08/19/25 07:53 Dose: Not Given Documented By: MYNOR Non-Admin Reason: No Insulin Coverage Levofloxacin (Levofloxacin 750 Mg Tablet) 750 mg PO Q24H [facility] Stop: 08/20/25 08:59 Last Admin: 08/19/25 08:47 Dose: 750 mg Documented By: MYNOR Lidocaine (Lidocaine 4 % Patch Adh..Patch) 1 patch TRANSDERMA DAILY PRN; Protocol PRN Reason: R flank pain Melatonin (Melatonin 3 Mg Tablet) 6 mg PO BEDTIME [facility] Last Admin: 08/18/25 20:23 Dose: 6 mg Documented By: ALYSIA Metoprolol Succinate (Metoprolol Succinate Er 50 Mg Tab.Er.24h) 50 mg PO DAILY [facility]; Protocol Last Admin: 08/19/25 08:49 Dose: 50 mg Documented By: MYNOR Montelukast Sodium (Montelukast Sodium 10 Mg Tablet) 10 mg PO BEDTIME [facility] Last Admin: 08/18/25 20:23 Dose: 10 mg Documented By: ALYSIA Omeprazole (Omeprazole 20 Mg Capsule.) 20 mg PO DAILY@0800 [facility] Last Admin: 08/19/25 08:49 Dose: 20 mg Documented By: MYNOR Ondansetron HCl (Ondansetron Hcl 4 Mg/2 Ml Vial) 4 mg IVPUSH Q8H PRN PRN Reason: Nausea and Vomiting Polyethylene Glycol (Polyethylene Glycol 3350 17 Gm Powd.Pack) 17 gm PO BID [facility] Last Admin: 08/19/25 08:53 Dose: Not Given Documented By: MYNOR Non-Admin Reason: Patient Refused Prednisone (Prednisone 20 Mg Tablet) 30 mg PO DAILY [facility]; Taper Stop: 08/25/25 08:59 Last Admin: 08/19/25 08:47 Dose: 30 mg Documented By: MYNOR Risperidone (Risperidone 1 Mg Tablet) 1 mg PO BID [facility] Last Admin: 08/19/25 08:48 Dose: 1 mg Documented By: MYNOR Senna (Sennosides 8.6 Mg Tablet) 8.6 mg PO BEDTIME [facility] Last Admin: 08/18/25 20:23 Dose: 8.6 mg Documented By: ALYSIA Simethicone (Simethicone 80 Mg Tab.Chew) 80 mg PO QIDWMHS PRN PRN Reason: Gas Last Admin: 08/14/25 21:01 Dose: 80 mg Documented By: JUAN Sodium Chloride (0.9 % Sodium Chloride Flush 3 Ml Syringe) 3 ml IVFLUSH QSHIFT [facility] Last Admin: 08/19/25 08:53 Dose: Not Given Documented By: MYNOR Non-Admin Reason: No Access Sodium Chloride (Sodium Chloride 0.65 % Nasal 44 Ml Sprbtl) 1 spray NOSTRIL-B Q1H PRN PRN Reason: Nasal Congestion Tamsulosin HCl (Tamsulosin Hcl 0.4 Mg Capsule) 0.4 mg PO BEDTIME [facility] Last Admin: 08/18/25 20:23 Dose: 0.4 mg Documented By: ALYSIA Thiamine HCl (Thiamine Hcl 100 Mg Tablet) 100 mg PO DAILY [facility] Last Admin: 08/19/25 08:50 Dose: 100 mg Documented By: MYNOR Tizanidine HCl (Tizanidine Hcl 4 Mg Tablet) 2 mg PO BEDTIME [facility] Last Admin: 08/18/25 20:23 Dose: 2 mg Documented By: ALYSIA Tramadol HCl (Tramadol Hcl 50 Mg Tablet) 50 mg PO Q6H PRN PRN Reason: severe left hip pain Labs 08/15/25 06:40 08/15/25 06:40 Labs: Laboratory Results - last 24 hr 08/18/25 08/18/25 08/18/25 11:42 16:00 20:02 POC Glucose 122 H 196 H 276 H 08/19/25 07:42 POC Glucose 86 Assessment and Plan (1) Depression: Status: Acute Plan 75yo M initially admitted to [facility] 07/15/25 for MDD with self-harming behavior, developed hypoxia and transferred to hospitalist service 08/12 for treatment of multifocal PNA, COPD exacerbation, MAMADOU, hyperkalemia; does not need IPLOC but unable to take care of self, awaiting SNF placement in [place] acute hypoxic respiratory failure due to multifocal PNA with bilateral pleural effusions and acute COPD exacerbation - treated with doxycycline + ceftriaxone 08/14-08/17, levofloxacin + doxycycline 08/17-08/19 - was on IV methylprednisolone and on prednisone taper now to complete 08/25 - weaned off O2 prerenal MAMADOU: resolved after fluid hydrationacute hyperK: resolved after stopping losartan chronic constipation: bowel regimen depression with self-harm behavior: per CARE Team no SI/HI and does not need IPLOC at this time; continue risperidone chronic normocytic anemia: continue B12 + iron chronic pain: continue tramadol + tizanidine + gabapentin CAD and hx stroke: ASA, clopidogrel, atorvastatin CHF: losartan held as above; continue empagliflozin, metoprolol succinate, furosemide morbid obesity: diet/exercise counseling DM2 with polyneuropathy and steroid-induced hyperglycemia overnight hypoglycemia: reduced hs glargine by 20%; continued AM glargine at same dose; also on correction-dose lispro; hypoglycemia has resolved CKD3b: SCr at baseline BPH: tamsulosin GERD: PPI VTE ppx: enoxaparin dispo: awaiting placement at SNF in [place] In my clinical judgment, the patient requires continued inpatient hospitalization for the following reasons: placement Total time managing care of this patient today: 25 minutes. Quality Stroke Does the patient have a stroke diagnosis?: No VTE Prior VTE?: No VTE Risk Level:: Medical - moderate - high VTE Device Contraindication: Treatment Not Indicated VTE Drug Contraindication: N/A - Med Ordered
--- NOTE | 2025-08-19 10:38 | MHC.CM.PN ---
SHANNAN RECEIVED A CALL FROM PTS GRAND DAUGHTER WHO SAYS PT CALLED HER AND SAID HE WAS GOING TO DC FRIDAY SHE SAYS SHE JUST WANTS TO CONFIRM SO SHE CAN BE PRESENT WHEN HE GOES AND MEET HIM AT THE SNF TO HELP GET HIM SETTLED SHANNAN INFORMED HER THERE WAS NO CONFIRMED DC DATE, AND THE SNF HAS YET TO CONFIRM ACCEPTANCE SHE ASKS THAT SHE BE NOTIFIED ONCE A DC DATE IS KNOWN
[2025-08-19 11:11] VITALS: BP 116/54; PULSE 65; RESP 16; TEMP 36; O2SAT 98
[2025-08-19 11:22] LABS: Glucose, Whole Blood 181 mg/dL (60-115)
--- NOTE | 2025-08-19 13:17 | P.CDIM_ITS ---
PROVIDER RESPONSE TEXT: To clarify, the appropriate diagnosis supported by the clinical indicators: Other (explain): morbid oBesity QUERY TEXT: PHYSICIAN'S DOCUMENTATION REQUEST Date of Query: 08/18/2025 11:42 AM EST Patient Name: Deejay Yu Admit Date: 08/12/2025 Dear Bianca Moser MD, A review of the medical record indicates additional documentation may be needed. Please review below and update the documentation accordingly. Clinical Indicators: Height: 5ft 5in Weight: 111kg BMI: 40.8 Other Clinical Notes Supporting Significance of the BMI: Nursing notes Height and Weight: Extreme obesity Class III If possible, please provide an associated diagnosis related to the abnormal BMI, such as: Morbid Obesity Due to excess calories Obesity Class I, II, III Severe or Morbid Obesity With alveolar hypoventilation or Obesity hypoventilation syndrome (OHS) Other (explain) Clinically unable to determine (explain) Thank you, Josefa Sweeney, CCS, CDIS Use of terms such as suspected, likely, concern for, or probable (associated with a specific diagnosis that is being evaluated, monitored, or treated as if it exists) are acceptable and can be coded in the inpatient setting, when documented at the time of discharge. Please use your independent medical judgment in providing your response. THIS QUERY IS PART OF THE PERMANENT MEDICAL RECORD
[2025-08-19 15:46] VITALS: BP 163/71; PULSE 68; RESP 20; TEMP 36; O2SAT 99
[2025-08-19 16:24] LABS: Glucose, Whole Blood 203 mg/dL (60-115)
[2025-08-19 19:22] VITALS: BP 149/63; PULSE 68; RESP 17; TEMP 36.1; O2SAT 98
[2025-08-19 20:37] LABS: Glucose, Whole Blood 242 mg/dL (60-115)
[2025-08-19] MEDS: Insulin Glargine,Hum.rec.anlog 100 UNIT/ML 10 ML VIAL 40 UNIT SUBCUT (21:03)
[2025-08-19 23:26] VITALS: BP 121/57; PULSE 68; RESP 15; TEMP 207.7; TEMP 97.6; O2SAT 99
[2025-08-20] VITALS (7 sets, daily range): BP systolic 94–124; BP diastolic 40–56; PULSE 63–81; RESP 16–18; TEMP 36–36.7; O2SAT 91–98
[2025-08-20 07:21] LABS: Glucose, Whole Blood 81 mg/dL (60-115)
[2025-08-20] MEDS: Ferrous Sulfate 324 MG TABLET.DR PO (08:45)
[2025-08-20] MEDS: Metoprolol Succinate ER 50 MG TAB.ER.24H PO (08:45)
[2025-08-20] MEDS: Insulin Glargine,Hum.rec.anlog 100 UNIT/ML 10 ML VIAL 15 UNIT SUBCUT (08:45)
[2025-08-20 11:27] LABS: Glucose, Whole Blood 177 mg/dL (60-115)
--- NOTE | 2025-08-20 15:52 | PC.NURSE ---
Patient requesting his granddaughter be contacted by social work. Sallie Gaspar [phone]. Thank you.
--- NOTE | 2025-08-20 16:25 | P.PNIM_ITS ---
Subjective Subjective Date of Service: 08/20/25 Interval History: No acute issues overnight. Minimal interaction Review of Systems Denies chest pain Denies shortness of breath Denies nausea vomiting diarrhea Denies fever chills Physical Exam 2 Vital Signs: Vital Signs: Last Vital Signs Temp 97.6 F 08/20/25 15:59 Pulse 63 08/20/25 15:59 Resp 18 08/20/25 15:59 BP 124/56 L 08/20/25 15:59 Pulse Ox 98 08/20/25 15:59 O2 Del Method Room Air 08/20/25 15:59 O2 Flow Rate 2 08/14/25 07:29 BMI result Body Mass Index 40.7 Const: Other: Awake alert no acute distress Resp: Other: Clear to auscultation bilaterally no rales rhonchi or wheezes Cardio: Other: No S4; positive S1-S2; no S3 murmurs rubs or gallops GI: Other: Soft nontender nondistended normoactive bowel sounds Extrem: Other: No edema bilaterally Objective Data Active Medications Albuterol/Ipratropium (Albuterol/Iprat 2.5/0.5mg 3 Ml Ampul.Neb) 3 ml INHALE Q4H PRN PRN Reason: Shortness of Breath/Wheezing Last Admin: 08/13/25 23:14 Dose: 3 ml Documented By: JOSE Ascorbic Acid (Ascorbic Acid 500 Mg Tablet) 500 mg PO DAILY [facility] Last Admin: 08/20/25 08:45 Dose: 500 mg Documented By: YENNI Aspirin (Aspirin 81 Mg Tab.Chew) 81 mg PO DAILY [facility] Last Admin: 08/20/25 08:44 Dose: 81 mg Documented By: YENNI Atorvastatin Calcium (Atorvastatin Calcium 40 Mg Tablet) 40 mg PO BEDTIME [facility] Last Admin: 08/19/25 20:59 Dose: 40 mg Documented By: JEFFRY Benzocaine (Throat Lozenge, Medicated Lozenge) 1 lozenge MUCOUS MEM Q2H PRN PRN Reason: Sore Throat Calcium Carbonate (Calcium Carbonate 750 Mg Tab.Chew) 750 mg PO Q4H PRN PRN Reason: Heartburn Last Admin: 08/14/25 18:43 Dose: 750 mg Documented By: GIN Cyanocobalamin (Cyanocobalamin (Vitamin B-12) 1,000 Mcg Tablet) 1,000 mcg PO DAILY [facility] Last Admin: 08/20/25 08:44 Dose: 1,000 mcg Documented By: YENNI Dextrose (Dextrose 50 % 25 Gm/50 Ml Syringe) 25 gm IVPUSH Q15M PRN; Protocol PRN Reason: per Hypoglycemia Standing Ord. Docusate Sodium (Docusate Sodium 100 Mg Capsule) 100 mg PO BID [facility] Last Admin: 08/20/25 08:44 Dose: 100 mg Documented By: YENNI Empagliflozin (Empagliflozin 10 Mg Tablet) 10 mg PO DAILY [facility] Last Admin: 08/20/25 08:45 Dose: 10 mg Documented By: YENNI Enoxaparin Sodium (Enoxaparin Sodium 40 Mg/0.4 Ml Syringe) 40 mg SUBCUT Q24H [facility] Last Admin: 08/20/25 15:32 Dose: Not Given Documented By: YENNI Non-Admin Reason: Patient Refused Ergocalciferol (Ergocalciferol (Vitamin D2) 1,250 Mcg Capsule) 1,250 mcg PO Fr@0900 [facility] Last Admin: 08/19/25 08:50 Dose: 1,250 mcg Documented By: MYNOR Ferrous Sulfate (Ferrous Sulfate 324 Mg Tablet.Dr) 324 mg PO DAILY [facility] Last Admin: 08/20/25 08:45 Dose: 324 mg Documented By: YENNI Fluticasone Propionate (Fluticasone Propionate Nasal 16 Gm [place]) 1 spray NOSTRIL-B DAILY [facility] Last Admin: 08/20/25 08:55 Dose: 1 spray Documented By: YENNI Furosemide (Furosemide 20 Mg Tablet) 20 mg PO DAILY [facility]; Protocol Last Admin: 08/20/25 08:45 Dose: 20 mg Documented By: YENNI Gabapentin (Gabapentin 600 Mg Tablet) 600 mg PO TID [facility] Last Admin: 08/20/25 15:32 Dose: 600 mg Documented By: YENNI Glucose (Glucose Gel 15 Gm Gel..Gram.) 15 gm PO Q15M PRN; Protocol PRN Reason: per Hypoglycemia Standing Ord. Insulin Glargine (Insulin Glargine,Hum.Rec.Anlog 100 Unit/Ml 10 Ml Vial) 15 unit SUBCUT DAILY [facility] Last Admin: 08/20/25 08:45 Dose: 15 unit Documented By: YENNI Insulin Glargine (Insulin Glargine,Hum.Rec.Anlog 100 Unit/Ml 10 Ml Vial) 40 unit SUBCUT BEDTIME [facility] Last Admin: 08/19/25 21:03 Dose: 40 unit Documented By: JEFFRY Insulin Human Lispro (Insulin Lispro 100 Unit/Ml 3 Ml Vial) 0 unit SUBCUT QIDACHS [facility]; Protocol Last Admin: 08/20/25 11:57 Dose: 2 unit Documented By: YENNI Lidocaine (Lidocaine 4 % Patch Adh..Patch) 1 patch TRANSDERMA DAILY PRN; Protocol PRN Reason: R flank pain Melatonin (Melatonin 3 Mg Tablet) 6 mg PO BEDTIME [facility] Last Admin: 08/19/25 20:59 Dose: 6 mg Documented By: JEFFRY Metoprolol Succinate (Metoprolol Succinate Er 50 Mg Tab.Er.24h) 50 mg PO DAILY [facility]; Protocol Last Admin: 08/20/25 08:45 Dose: 50 mg Documented By: YENNI Montelukast Sodium (Montelukast Sodium 10 Mg Tablet) 10 mg PO BEDTIME [facility] Last Admin: 08/19/25 20:59 Dose: 10 mg Documented By: JEFFRY Omeprazole (Omeprazole 20 Mg Capsule.Dr) 20 mg PO DAILY@0800 [facility] Last Admin: 08/20/25 08:45 Dose: 20 mg Documented By: YENNI Ondansetron HCl (Ondansetron Hcl 4 Mg/2 Ml Vial) 4 mg IVPUSH Q8H PRN PRN Reason: Nausea and Vomiting Polyethylene Glycol (Polyethylene Glycol 3350 17 Gm Powd.Pack) 17 gm PO BID [facility] Last Admin: 08/20/25 08:55 Dose: Not Given Documented By: YENNI Non-Admin Reason: Patient Refused Prednisone (Prednisone 20 Mg Tablet) 30 mg PO DAILY [facility]; Taper Stop: 08/25/25 08:59 Last Admin: 08/20/25 08:43 Dose: 30 mg Documented By: YENNI Risperidone (Risperidone 1 Mg Tablet) 1 mg PO BID [facility] Last Admin: 08/20/25 08:44 Dose: 1 mg Documented By: YENNI Senna (Sennosides 8.6 Mg Tablet) 8.6 mg PO BEDTIME [facility] Last Admin: 08/19/25 20:59 Dose: 8.6 mg Documented By: JEFFRY Simethicone (Simethicone 80 Mg Tab.Chew) 80 mg PO QIDWMHS PRN PRN Reason: Gas Last Admin: 08/14/25 21:01 Dose: 80 mg Documented By: JUAN Sodium Chloride (0.9 % Sodium Chloride Flush 3 Ml Syringe) 3 ml IVFLUSH QSHIFT [facility] Last Admin: 08/20/25 15:33 Dose: Not Given Documented By: YENNI Non-Admin Reason: No IV access Sodium Chloride (Sodium Chloride 0.65 % Nasal 44 Ml Sprbtl) 1 spray NOSTRIL-B Q1H PRN PRN Reason: Nasal Congestion Tamsulosin HCl (Tamsulosin Hcl 0.4 Mg Capsule) 0.4 mg PO BEDTIME [facility] Last Admin: 08/19/25 20:59 Dose: 0.4 mg Documented By: JEFFRY Thiamine HCl (Thiamine Hcl 100 Mg Tablet) 100 mg PO DAILY [facility] Last Admin: 08/20/25 08:54 Dose: 100 mg Documented By: YENNI Tizanidine HCl (Tizanidine Hcl 4 Mg Tablet) 2 mg PO BEDTIME [facility] Last Admin: 08/19/25 20:59 Dose: 2 mg Documented By: JEFFRY Tramadol HCl (Tramadol Hcl 50 Mg Tablet) 50 mg PO Q6H PRN PRN Reason: severe left hip pain Labs 08/15/25 06:40 08/15/25 06:40 Labs: Laboratory Results - last 24 hr 08/19/25 08/20/25 08/20/25 20:34 07:16 11:19 POC Glucose 242 H 81 177 H Assessment and Plan (1) Acute and chronic respiratory failure with hypoxia: Status: Acute (2) RLL pneumonia: Status: Acute Plan 75yo M initially admitted to [facility] 07/15/25 for MDD with self-harming behavior, developed hypoxia and transferred to hospitalist service 08/12 for treatment of multifocal PNA, COPD exacerbation, MAMADOU, hyperkalemia; does not need IPLOC but unable to take care of self, awaiting SNF placement in [place] 1.Acute hypoxic respiratory failure due to multifocal PNA/acute COPD exacerbation - treated with doxycycline + ceftriaxone 08/14-08/17, levofloxacin + doxycycline 08/17-08/19 - was on IV methylprednisolone and on prednisone taper now to complete 08/25 - weaned off O2 -follow sats 2.Prerenal acute kidney injury (in backdrop of chronic kidney disease stage IIIB) -responded to volume -follow renal/divalents 3.CAD -no acute issues at this time -continue outpatient therapies 4.CHF -stable and well compensated -adjust therapies as indicated 5. Diabetes type 2 -acceptable control on current regimen -reduced hs glargine by 20%; continued AM glargine at same dose -lispro correctional scale -adjust as indicated enoxaparin dispo: awaiting placement at [facility] in [place] In my clinical judgment, the patient requires continued inpatient hospitalization for the following reasons: placement Quality Stroke Does the patient have a stroke diagnosis?: No VTE Prior VTE?: No VTE Risk Level:: Medical - moderate - high VTE Device Contraindication: Treatment Not Indicated VTE Drug Contraindication: N/A - Med Ordered
[2025-08-20 16:31] LABS: Glucose, Whole Blood 206 mg/dL (60-115)
[2025-08-20 20:09] LABS: Glucose, Whole Blood 394 mg/dL (60-115)
[2025-08-20] MEDS: Insulin Glargine,Hum.rec.anlog 100 UNIT/ML 10 ML VIAL 40 UNIT SUBCUT (21:51)
[2025-08-21 03:11] VITALS: BP 115/58; PULSE 86; RESP 17; TEMP 36.9; O2SAT 94
[2025-08-21 07:10] VITALS: BP 119/56; PULSE 74; RESP 18; TEMP 36; O2SAT 98
[2025-08-21 07:17] LABS: Glucose, Whole Blood 262 mg/dL (60-115)
[2025-08-21] MEDS: Insulin Glargine,Hum.rec.anlog 100 UNIT/ML 10 ML VIAL 15 UNIT SUBCUT (07:42)
[2025-08-21] MEDS: Metoprolol Succinate ER 50 MG TAB.ER.24H PO (07:43)
[2025-08-21] MEDS: Ferrous Sulfate 324 MG TABLET.DR PO (07:44)
[2025-08-21 11:14] VITALS: BP 142/64; PULSE 77; RESP 18; TEMP 35.9; O2SAT 100
[2025-08-21 11:18] LABS: Glucose, Whole Blood 202 mg/dL (60-115)
--- NOTE | 2025-08-21 13:09 | P.PNIM_ITS ---
Subjective Subjective Date of Service: 08/21/25 Interval History: No acute issues overnight; no status change Review of Systems Denies chest pain Denies shortness of breath Denies nausea vomiting diarrhea Denies fever chills Physical Exam 2 Vital Signs: Vital Signs: Last Vital Signs Temp 96.7 F L 08/21/25 11:14 Pulse 77 08/21/25 11:14 Resp 18 08/21/25 11:14 BP 142/64 H 08/21/25 11:14 Pulse Ox 100 08/21/25 11:14 O2 Del Method Room Air 08/21/25 11:14 O2 Flow Rate 2 08/14/25 07:29 BMI result Body Mass Index 40.7 Const: Other: Awake alert no acute distress Resp: Other: Clear to auscultation bilaterally no rales rhonchi or wheezes Cardio: Other: No S4; positive S1-S2; no S3 murmurs rubs or gallops GI: Other: Soft nontender nondistended normoactive bowel sounds Extrem: Other: No edema bilaterally Objective Data Active Medications Albuterol/Ipratropium (Albuterol/Iprat 2.5/0.5mg 3 Ml Ampul.Neb) 3 ml INHALE Q4H PRN PRN Reason: Shortness of Breath/Wheezing Last Admin: 08/13/25 23:14 Dose: 3 ml Documented By: JOSE Ascorbic Acid (Ascorbic Acid 500 Mg Tablet) 500 mg PO DAILY [facility] Last Admin: 08/21/25 07:44 Dose: 500 mg Documented By: AAKASH Aspirin (Aspirin 81 Mg Tab.Chew) 81 mg PO DAILY [facility] Last Admin: 08/21/25 07:43 Dose: 81 mg Documented By: AAKASH Atorvastatin Calcium (Atorvastatin Calcium 40 Mg Tablet) 40 mg PO BEDTIME [facility] Last Admin: 08/20/25 21:51 Dose: 40 mg Documented By: DAMARIS Benzocaine (Throat Lozenge, Medicated Lozenge) 1 lozenge MUCOUS MEM Q2H PRN PRN Reason: Sore Throat Calcium Carbonate (Calcium Carbonate 750 Mg Tab.Chew) 750 mg PO Q4H PRN PRN Reason: Heartburn Last Admin: 08/14/25 18:43 Dose: 750 mg Documented By: GIN Cyanocobalamin (Cyanocobalamin (Vitamin B-12) 1,000 Mcg Tablet) 1,000 mcg PO DAILY [facility] Last Admin: 08/21/25 07:44 Dose: 1,000 mcg Documented By: AAKASH Dextrose (Dextrose 50 % 25 Gm/50 Ml Syringe) 25 gm IVPUSH Q15M PRN; Protocol PRN Reason: per Hypoglycemia Standing Ord. Docusate Sodium (Docusate Sodium 100 Mg Capsule) 100 mg PO BID [facility] Last Admin: 08/21/25 07:44 Dose: 100 mg Documented By: AAKASH Empagliflozin (Empagliflozin 10 Mg Tablet) 10 mg PO DAILY [facility] Last Admin: 08/21/25 07:43 Dose: 10 mg Documented By: AAKASH Enoxaparin Sodium (Enoxaparin Sodium 40 Mg/0.4 Ml Syringe) 40 mg SUBCUT Q24H [facility] Last Admin: 08/20/25 15:32 Dose: Not Given Documented By: YENNI Non-Admin Reason: Patient Refused Ergocalciferol (Ergocalciferol (Vitamin D2) 1,250 Mcg Capsule) 1,250 mcg PO Fr@0900 [facility] Last Admin: 08/19/25 08:50 Dose: 1,250 mcg Documented By: MYNOR Ferrous Sulfate (Ferrous Sulfate 324 Mg Tablet.Dr) 324 mg PO DAILY [facility] Last Admin: 08/21/25 07:44 Dose: 324 mg Documented By: AAKASH Fluticasone Propionate (Fluticasone Propionate Nasal 16 Gm [place]) 1 spray NOSTRIL-B DAILY [facility] Last Admin: 08/21/25 07:51 Dose: 1 spray Documented By: AAKASH Furosemide (Furosemide 20 Mg Tablet) 20 mg PO DAILY [facility]; Protocol Last Admin: 08/21/25 07:44 Dose: 20 mg Documented By: AAKASH Gabapentin (Gabapentin 600 Mg Tablet) 600 mg PO TID [facility] Last Admin: 08/21/25 07:43 Dose: 600 mg Documented By: AAKASH Glucose (Glucose Gel 15 Gm Gel..Gram.) 15 gm PO Q15M PRN; Protocol PRN Reason: per Hypoglycemia Standing Ord. Insulin Glargine (Insulin Glargine,Hum.Rec.Anlog 100 Unit/Ml 10 Ml Vial) 15 unit SUBCUT DAILY [facility] Last Admin: 08/21/25 07:42 Dose: 15 unit Documented By: AAKASH Insulin Glargine (Insulin Glargine,Hum.Rec.Anlog 100 Unit/Ml 10 Ml Vial) 40 unit SUBCUT BEDTIME [facility] Last Admin: 08/20/25 21:51 Dose: 1 unit Documented By: DAMARIS Insulin Human Lispro (Insulin Lispro 100 Unit/Ml 3 Ml Vial) 0 unit SUBCUT QIDACHS [facility]; Protocol Last Admin: 08/21/25 11:40 Dose: 4 unit Documented By: AAKASH Lidocaine (Lidocaine 4 % Patch Adh..Patch) 1 patch TRANSDERMA DAILY PRN; Protocol PRN Reason: R flank pain Melatonin (Melatonin 3 Mg Tablet) 6 mg PO BEDTIME [facility] Last Admin: 08/20/25 21:52 Dose: 6 mg Documented By: DAMARIS Metoprolol Succinate (Metoprolol Succinate Er 50 Mg Tab.Er.24h) 50 mg PO DAILY [facility]; Protocol Last Admin: 08/21/25 07:43 Dose: 50 mg Documented By: AAKASH Montelukast Sodium (Montelukast Sodium 10 Mg Tablet) 10 mg PO BEDTIME [facility] Last Admin: 08/20/25 21:50 Dose: 10 mg Documented By: DAMARIS Omeprazole (Omeprazole 20 Mg Capsule.Dr) 20 mg PO DAILY@0800 [facility] Last Admin: 08/21/25 07:43 Dose: 20 mg Documented By: AAKASH Ondansetron HCl (Ondansetron Hcl 4 Mg/2 Ml Vial) 4 mg IVPUSH Q8H PRN PRN Reason: Nausea and Vomiting Polyethylene Glycol (Polyethylene Glycol 3350 17 Gm Powd.Pack) 17 gm PO BID [facility] Last Admin: 08/21/25 07:44 Dose: 17 gm Documented By: AAKASH Prednisone (Prednisone 20 Mg Tablet) 20 mg PO DAILY [facility]; Taper Stop: 08/25/25 08:59 Last Admin: 08/21/25 07:43 Dose: 20 mg Documented By: AAKASH Risperidone (Risperidone 1 Mg Tablet) 1 mg PO BID [facility] Last Admin: 08/21/25 07:43 Dose: 1 mg Documented By: AAKASH Senna (Sennosides 8.6 Mg Tablet) 8.6 mg PO BEDTIME [facility] Last Admin: 08/20/25 21:50 Dose: 8.6 mg Documented By: DAMARIS Simethicone (Simethicone 80 Mg Tab.Chew) 80 mg PO QIDWMHS PRN PRN Reason: Gas Last Admin: 08/14/25 21:01 Dose: 80 mg Documented By: JUAN Sodium Chloride (0.9 % Sodium Chloride Flush 3 Ml Syringe) 3 ml IVFLUSH QSHIFT [facility] Last Admin: 08/21/25 07:48 Dose: Not Given Documented By: AAKASH Non-Admin Reason: No Access Sodium Chloride (Sodium Chloride 0.65 % Nasal 44 Ml Sprbtl) 1 spray NOSTRIL-B Q1H PRN PRN Reason: Nasal Congestion Tamsulosin HCl (Tamsulosin Hcl 0.4 Mg Capsule) 0.4 mg PO BEDTIME [facility] Last Admin: 08/20/25 21:50 Dose: 0.4 mg Documented By: DAMARIS Thiamine HCl (Thiamine Hcl 100 Mg Tablet) 100 mg PO DAILY [facility] Last Admin: 08/21/25 07:44 Dose: 100 mg Documented By: AAKASH Tizanidine HCl (Tizanidine Hcl 4 Mg Tablet) 2 mg PO BEDTIME [facility] Last Admin: 08/20/25 22:14 Dose: 2 mg Documented By: DAMARIS Tramadol HCl (Tramadol Hcl 50 Mg Tablet) 50 mg PO Q6H PRN PRN Reason: severe left hip pain Labs 08/15/25 06:40 08/15/25 06:40 Labs: Laboratory Results - last 24 hr 08/20/25 08/20/25 08/21/25 16:19 20:05 07:12 POC Glucose 206 H 394 H* 262 H 08/21/25 11:12 POC Glucose 202 H Assessment and Plan (1) Multifocal pneumonia: Status: Acute (2) Acute and chronic respiratory failure with hypoxia: Status: Acute Plan 75yo M initially admitted to [facility] 07/15/25 for MDD with self-harming behavior, developed hypoxia and transferred to hospitalist service 08/12 for treatment of multifocal PNA, COPD exacerbation, MAMADOU, hyperkalemia; does not need IPLOC but unable to take care of self, awaiting SNF placement in [place] 1.Acute hypoxic respiratory failure due to multifocal PNA/acute COPD exacerbation - treated with doxycycline + ceftriaxone 08/14-08/17, levofloxacin + doxycycline 08/17-08/19 - was on IV methylprednisolone and on prednisone taper now to complete 08/25 -weaned off O2 -follow sats 2.Prerenal acute kidney injury (in backdrop of chronic kidney disease stage IIIB) -responded to volume -follow renal/divalents 3.CAD -no acute issues at this time -continue outpatient therapies 4.CHF -stable and well compensated -adjust therapies as indicated 5. Diabetes type 2 -acceptable control on current regimen -reduced hs glargine by 20%; continued AM glargine at same dose -lispro correctional scale -adjust as indicated enoxaparin dispo: awaiting placement at [facility] in [place] In my clinical judgment, the patient requires continued inpatient hospitalization for the following reasons: placement Quality Stroke Does the patient have a stroke diagnosis?: No VTE Prior VTE?: No VTE Risk Level:: Medical - moderate - high VTE Device Contraindication: Treatment Not Indicated VTE Drug Contraindication: N/A - Med Ordered
[2025-08-21 15:24] VITALS: BP 145/66; PULSE 75; RESP 18; TEMP 36.6; O2SAT 95
[2025-08-21 15:57] LABS: Glucose, Whole Blood 336 mg/dL (60-115)
[2025-08-21 19:40] LABS: Glucose, Whole Blood 416 mg/dL (60-115)
[2025-08-21 20:00] VITALS: BP 144/62; PULSE 74; RESP 18; TEMP 36.3; O2SAT 94
[2025-08-21] MEDS: Insulin Glargine,Hum.rec.anlog 100 UNIT/ML 10 ML VIAL 40 UNIT SUBCUT (20:01)
--- NOTE | 2025-08-21 20:07 | PC.NURSE ---
Pt's blood sugar was 416. MD Giraldo notified via [place] text. Per , give scheduled sliding scale lispro and Lantus and recheck blood sugar in 2 hours.
[2025-08-21 22:00] LABS: Glucose, Whole Blood 396 mg/dL (60-115)
--- NOTE | 2025-08-21 22:36 | PC.NURSE ---
Pt's blood sugar recheck at 21:54 was 396. WILL Pruitt notified via [place]. PA ordered additional 5 units of lispro. Administered. Pt continues to ask for snacks. Dietary education reinforced.
[2025-08-21 23:40] LABS: Glucose, Whole Blood 362 mg/dL (60-115)
--- NOTE | 2025-08-21 23:46 | PC.NURSE ---
Pt's blood sugar recheck was 362. WILL Pruitt notified via [place] text. Per WILL, pt's blood sugar dropped appropriately the past few nights; No new orders at this time.
[2025-08-22] VITALS (7 sets, daily range): BP systolic 112–138; BP diastolic 56–68; PULSE 68–87; RESP 14–18; TEMP 36.2–36.6; O2SAT 92–98
[2025-08-22 07:29] LABS: Glucose, Whole Blood 161 mg/dL (60-115)
[2025-08-22] MEDS: Ferrous Sulfate 324 MG TABLET.DR PO (08:23)
[2025-08-22] MEDS: Metoprolol Succinate ER 50 MG TAB.ER.24H PO (08:23)
[2025-08-22] MEDS: Insulin Glargine,Hum.rec.anlog 100 UNIT/ML 10 ML VIAL 15 UNIT SUBCUT (08:24)
[2025-08-22 11:28] LABS: Glucose, Whole Blood 189 mg/dL (60-115)
--- NOTE | 2025-08-22 14:41 | P.PNIM_ITS ---
Subjective Subjective Date of Service: 08/22/25 Interval History: No acute issues overnight Review of Systems Denies chest pain Denies shortness of breath Denies nausea vomiting diarrhea Denies fever chills Physical Exam 2 Vital Signs: Vital Signs: Last Vital Signs Temp 97.9 F 08/22/25 12:00 Pulse 68 08/22/25 12:00 Resp 18 08/22/25 12:00 BP 125/60 08/22/25 12:00 Pulse Ox 97 08/22/25 12:00 O2 Del Method Room Air 08/22/25 12:00 O2 Flow Rate 2 08/14/25 07:29 BMI result Body Mass Index 40.7 Const: Other: Awake alert no acute distress Resp: Other: Clear to auscultation bilaterally no rales rhonchi or wheezes Cardio: Other: No S4; positive S1-S2; no S3 murmurs rubs or gallops GI: Other: Soft nontender nondistended normoactive bowel sounds Extrem: Other: No edema bilaterally Objective Data Active Medications Albuterol/Ipratropium (Albuterol/Iprat 2.5/0.5mg 3 Ml Ampul.Neb) 3 ml INHALE Q4H PRN PRN Reason: Shortness of Breath/Wheezing Last Admin: 08/13/25 23:14 Dose: 3 ml Documented By: JOSE Ascorbic Acid (Ascorbic Acid 500 Mg Tablet) 500 mg PO DAILY [facility] Last Admin: 08/22/25 08:23 Dose: 500 mg Documented By: JULIUS Aspirin (Aspirin 81 Mg Tab.Chew) 81 mg PO DAILY [facility] Last Admin: 08/22/25 08:23 Dose: 81 mg Documented By: JULIUS Atorvastatin Calcium (Atorvastatin Calcium 40 Mg Tablet) 40 mg PO BEDTIME [facility] Last Admin: 08/21/25 20:03 Dose: 40 mg Documented By: JH Benzocaine (Throat Lozenge, Medicated Lozenge) 1 lozenge MUCOUS MEM Q2H PRN PRN Reason: Sore Throat Calcium Carbonate (Calcium Carbonate 750 Mg Tab.Chew) 750 mg PO Q4H PRN PRN Reason: Heartburn Last Admin: 08/14/25 18:43 Dose: 750 mg Documented By: GIN Cyanocobalamin (Cyanocobalamin (Vitamin B-12) 1,000 Mcg Tablet) 1,000 mcg PO DAILY [facility] Last Admin: 08/22/25 08:23 Dose: 1,000 mcg Documented By: JULIUS Dextrose (Dextrose 50 % 25 Gm/50 Ml Syringe) 25 gm IVPUSH Q15M PRN; Protocol PRN Reason: per Hypoglycemia Standing Ord. Docusate Sodium (Docusate Sodium 100 Mg Capsule) 100 mg PO BID [facility] Last Admin: 08/22/25 08:23 Dose: 100 mg Documented By: JULIUS Empagliflozin (Empagliflozin 10 Mg Tablet) 10 mg PO DAILY [facility] Last Admin: 08/22/25 08:23 Dose: 10 mg Documented By: JULIUS Enoxaparin Sodium (Enoxaparin Sodium 40 Mg/0.4 Ml Syringe) 40 mg SUBCUT Q24H [facility] Last Admin: 08/21/25 14:04 Dose: 40 mg Documented By: AAKASH Ergocalciferol (Ergocalciferol (Vitamin D2) 1,250 Mcg Capsule) 1,250 mcg PO Fr@0900 [facility] Last Admin: 08/19/25 08:50 Dose: 1,250 mcg Documented By: MYNOR Ferrous Sulfate (Ferrous Sulfate 324 Mg Tablet.Dr) 324 mg PO DAILY [facility] Last Admin: 08/22/25 08:23 Dose: 324 mg Documented By: JULIUS Fluticasone Propionate (Fluticasone Propionate Nasal 16 Gm [place]) 1 spray NOSTRIL-B DAILY [facility] Last Admin: 08/22/25 08:31 Dose: Not Given Documented By: JULIUS Non-Admin Reason: Patient Refused Furosemide (Furosemide 20 Mg Tablet) 20 mg PO DAILY [facility]; Protocol Last Admin: 08/22/25 08:23 Dose: 20 mg Documented By: JULIUS Gabapentin (Gabapentin 600 Mg Tablet) 600 mg PO TID [facility] Last Admin: 08/22/25 08:23 Dose: 600 mg Documented By: JULIUS Glucose (Glucose Gel 15 Gm Gel..Gram.) 15 gm PO Q15M PRN; Protocol PRN Reason: per Hypoglycemia Standing Ord. Insulin Glargine (Insulin Glargine,Hum.Rec.Anlog 100 Unit/Ml 10 Ml Vial) 15 unit SUBCUT DAILY [facility] Last Admin: 08/22/25 08:24 Dose: 15 unit Documented By: JULIUS Insulin Glargine (Insulin Glargine,Hum.Rec.Anlog 100 Unit/Ml 10 Ml Vial) 40 unit SUBCUT BEDTIME [facility] Last Admin: 08/21/25 20:01 Dose: 40 unit Documented By: JH Insulin Human Lispro (Insulin Lispro 100 Unit/Ml 3 Ml Vial) 0 unit SUBCUT QIDACHS [facility]; Protocol Last Admin: 08/22/25 11:34 Dose: 2 unit Documented By: JULIUS Lidocaine (Lidocaine 4 % Patch Adh..Patch) 1 patch TRANSDERMA DAILY PRN; Protocol PRN Reason: R flank pain Melatonin (Melatonin 3 Mg Tablet) 6 mg PO BEDTIME [facility] Last Admin: 08/21/25 20:03 Dose: 6 mg Documented By: JH Metoprolol Succinate (Metoprolol Succinate Er 50 Mg Tab.Er.24h) 50 mg PO DAILY [facility]; Protocol Last Admin: 08/22/25 08:23 Dose: 50 mg Documented By: JULIUS Montelukast Sodium (Montelukast Sodium 10 Mg Tablet) 10 mg PO BEDTIME [facility] Last Admin: 08/21/25 20:03 Dose: 10 mg Documented By: JH Omeprazole (Omeprazole 20 Mg Capsule.Dr) 20 mg PO DAILY@0800 [facility] Last Admin: 08/22/25 08:23 Dose: 20 mg Documented By: JULIUS Ondansetron HCl (Ondansetron Hcl 4 Mg/2 Ml Vial) 4 mg IVPUSH Q8H PRN PRN Reason: Nausea and Vomiting Polyethylene Glycol (Polyethylene Glycol 3350 17 Gm Powd.Pack) 17 gm PO BID [facility] Last Admin: 08/22/25 08:24 Dose: 17 gm Documented By: JULIUS Prednisone (Prednisone 20 Mg Tablet) 20 mg PO DAILY [facility]; Taper Stop: 08/25/25 08:59 Last Admin: 08/22/25 08:23 Dose: 20 mg Documented By: JULIUS Risperidone (Risperidone 1 Mg Tablet) 1 mg PO BID [facility] Last Admin: 08/22/25 08:23 Dose: 1 mg Documented By: JULIUS Senna (Sennosides 8.6 Mg Tablet) 8.6 mg PO BEDTIME [facility] Last Admin: 08/21/25 20:02 Dose: 8.6 mg Documented By: JH Simethicone (Simethicone 80 Mg Tab.Chew) 80 mg PO QIDWMHS PRN PRN Reason: Gas Last Admin: 08/14/25 21:01 Dose: 80 mg Documented By: JUAN Sodium Chloride (0.9 % Sodium Chloride Flush 3 Ml Syringe) 3 ml IVFLUSH QSHIFT [facility] Last Admin: 08/22/25 08:24 Dose: Not Given Documented By: JULIUS Non-Admin Reason: no iv access Sodium Chloride (Sodium Chloride 0.65 % Nasal 44 Ml Sprbtl) 1 spray NOSTRIL-B Q1H PRN PRN Reason: Nasal Congestion Tamsulosin HCl (Tamsulosin Hcl 0.4 Mg Capsule) 0.4 mg PO BEDTIME [facility] Last Admin: 08/21/25 20:03 Dose: 0.4 mg Documented By: JH Thiamine HCl (Thiamine Hcl 100 Mg Tablet) 100 mg PO DAILY [facility] Last Admin: 08/22/25 08:23 Dose: 100 mg Documented By: JULIUS Tizanidine HCl (Tizanidine Hcl 4 Mg Tablet) 2 mg PO BEDTIME [facility] Last Admin: 08/21/25 20:03 Dose: 2 mg Documented By: JH Tramadol HCl (Tramadol Hcl 50 Mg Tablet) 50 mg PO Q6H PRN PRN Reason: severe left hip pain Labs 08/15/25 06:40 08/15/25 06:40 Labs: Laboratory Results - last 24 hr 08/21/25 08/21/25 08/21/25 15:53 19:35 21:54 POC Glucose 336 H 416 H* 396 H* 08/21/25 08/22/25 08/22/25 23:35 07:24 11:22 POC Glucose 362 H* 161 H 189 H Assessment and Plan (1) Acute and chronic respiratory failure with hypoxia: Status: Acute (2) Multifocal pneumonia: Status: Acute Plan 75yo M initially admitted to [facility] 07/15/25 for MDD with self-harming behavior, developed hypoxia and transferred to hospitalist service 08/12 for treatment of multifocal PNA, COPD exacerbation, MAMADOU, hyperkalemia; does not need IPLOC but unable to take care of self, awaiting SNF placement in [place] 1.Acute hypoxic respiratory failure due to multifocal PNA/acute COPD exacerbation - treated with doxycycline + ceftriaxone 08/14-08/17, levofloxacin + doxycycline 08/17-08/19 - was on IV methylprednisolone and on prednisone taper now to complete 08/25 -weaned off O2 -follow sats 2.Prerenal acute kidney injury (in backdrop of chronic kidney disease stage IIIB) -responded to volume -follow renal/divalents 3.CAD -no acute issues at this time -continue outpatient therapies 4.CHF -stable and well compensated -adjust therapies as indicated 5. Diabetes type 2 -acceptable control on current regimen -reduced hs glargine by 20%; continued AM glargine at same dose -lispro correctional scale -adjust as indicated enoxaparin dispo: awaiting placement at SNF in [place] In my clinical judgment, the patient requires continued inpatient hospitalization for the following reasons: placement Quality Stroke Does the patient have a stroke diagnosis?: No VTE Prior VTE?: No VTE Risk Level:: Medical - moderate - high VTE Device Contraindication: Treatment Not Indicated VTE Drug Contraindication: N/A - Med Ordered
--- NOTE | 2025-08-22 15:12 | MHC.CM.PN ---
EMR REVIEWED AND PER MD ROUNDS, PT REMAINS MEDICALLY CLEARED FOR DC. PT AWAITING COMPLETION OF [facility] FOR PLACEMENT IN [facility]. CM MET WITH PT VIA WHEEL AND AXLE INSPECTOR, PT NOW STATES HE IS WILLING TO HAVE INFORMATION SHARED WITH GRANDDAUGHTER SHE SOUGHT HIS FORGIVENESS THIS PAST WEEKEND. CM WILL CONTINUE TO FOLLOW FOR ANY CHANGE TO DC PLAN.
[2025-08-22 16:11] LABS: Glucose, Whole Blood 260 mg/dL (60-115)
[2025-08-22 20:42] LABS: Glucose, Whole Blood 300 mg/dL (60-115)
[2025-08-22] MEDS: Insulin Glargine,Hum.rec.anlog 100 UNIT/ML 10 ML VIAL 40 UNIT SUBCUT (20:54)
[2025-08-23 03:42] VITALS: BP 129/61; PULSE 77; RESP 18; TEMP 36.4; O2SAT 95
[2025-08-23 07:44] VITALS: BP 140/63; PULSE 67; RESP 16; TEMP 36.1; O2SAT 99
[2025-08-23 07:52] LABS: Glucose, Whole Blood 145 mg/dL (60-115)
[2025-08-23] MEDS: Metoprolol Succinate ER 50 MG TAB.ER.24H PO (08:34)
[2025-08-23] MEDS: Ferrous Sulfate 324 MG TABLET.DR PO (08:35)
[2025-08-23] MEDS: Insulin Glargine,Hum.rec.anlog 100 UNIT/ML 10 ML VIAL 15 UNIT SUBCUT (08:36)
[2025-08-23 11:40] LABS: Glucose, Whole Blood 195 mg/dL (60-115)
[2025-08-23 11:44] VITALS: BP 131/61; PULSE 74; RESP 18; TEMP 36; O2SAT 97
--- NOTE | 2025-08-23 12:02 | MHC.CM.PN ---
This policy writer sales LEANDRO screener from [place]- she reports not getting my email from last week. Re-sent the email. Lisa Hung stated the LEANDRO will be completed today.
[2025-08-23 15:09] VITALS: BP 121/57; PULSE 93; RESP 17; TEMP 36.2; O2SAT 98
--- NOTE | 2025-08-23 15:23 | P.PNIM_ITS ---
Subjective Subjective Date of Service: 08/23/25 Interval History: No acute issues overnight. Awaiting placement Review of Systems Denies chest pain Denies shortness of breath Denies nausea vomiting diarrhea Denies fever chills Physical Exam 2 Vital Signs: Vital Signs: Last Vital Signs Temp 97.2 F 08/23/25 15:09 Pulse 93 08/23/25 15:09 Resp 17 08/23/25 15:09 BP 121/57 L 08/23/25 15:09 Pulse Ox 98 08/23/25 15:09 O2 Del Method Room Air 08/23/25 15:09 O2 Flow Rate 2 08/14/25 07:29 BMI result Body Mass Index 40.7 Const: Other: Awake alert no acute distress Resp: Other: Clear to auscultation bilaterally no rales rhonchi or wheezes Cardio: Other: No S4; positive S1-S2; no S3 murmurs rubs or gallops GI: Other: Soft nontender nondistended normoactive bowel sounds Extrem: Other: No edema bilaterally Objective Data Active Medications Albuterol/Ipratropium (Albuterol/Iprat 2.5/0.5mg 3 Ml Ampul.Neb) 3 ml INHALE Q4H PRN PRN Reason: Shortness of Breath/Wheezing Last Admin: 08/13/25 23:14 Dose: 3 ml Documented By: JOSE Ascorbic Acid (Ascorbic Acid 500 Mg Tablet) 500 mg PO DAILY [facility] Last Admin: 08/23/25 08:35 Dose: 500 mg Documented By: LUZ Aspirin (Aspirin 81 Mg Tab.Chew) 81 mg PO DAILY [facility] Last Admin: 08/23/25 08:36 Dose: 81 mg Documented By: LUZ Atorvastatin Calcium (Atorvastatin Calcium 40 Mg Tablet) 40 mg PO BEDTIME [facility] Last Admin: 08/22/25 20:53 Dose: 40 mg Documented By: JH Benzocaine (Throat Lozenge, Medicated Lozenge) 1 lozenge MUCOUS MEM Q2H PRN PRN Reason: Sore Throat Calcium Carbonate (Calcium Carbonate 750 Mg Tab.Chew) 750 mg PO Q4H PRN PRN Reason: Heartburn Last Admin: 08/14/25 18:43 Dose: 750 mg Documented By: GIN Cyanocobalamin (Cyanocobalamin (Vitamin B-12) 1,000 Mcg Tablet) 1,000 mcg PO DAILY [facility] Last Admin: 08/23/25 08:35 Dose: 1,000 mcg Documented By: LUZ Dextrose (Dextrose 50 % 25 Gm/50 Ml Syringe) 25 gm IVPUSH Q15M PRN; Protocol PRN Reason: per Hypoglycemia Standing Ord. Docusate Sodium (Docusate Sodium 100 Mg Capsule) 100 mg PO BID [facility] Last Admin: 08/23/25 08:35 Dose: 100 mg Documented By: LUZ Empagliflozin (Empagliflozin 10 Mg Tablet) 10 mg PO DAILY [facility] Last Admin: 08/23/25 08:34 Dose: 10 mg Documented By: LUZ Enoxaparin Sodium (Enoxaparin Sodium 40 Mg/0.4 Ml Syringe) 40 mg SUBCUT Q24H [facility] Last Admin: 08/23/25 14:53 Dose: 40 mg Documented By: LUZ Ergocalciferol (Ergocalciferol (Vitamin D2) 1,250 Mcg Capsule) 1,250 mcg PO Fr@0900 [facility] Last Admin: 08/19/25 08:50 Dose: 1,250 mcg Documented By: MYNOR Ferrous Sulfate (Ferrous Sulfate 324 Mg Tablet.Dr) 324 mg PO DAILY [facility] Last Admin: 08/23/25 08:35 Dose: 324 mg Documented By: LUZ Fluticasone Propionate (Fluticasone Propionate Nasal 16 Gm [place]) 1 spray NOSTRIL-B DAILY [facility] Last Admin: 08/23/25 08:36 Dose: Not Given Documented By: LUZ Non-Admin Reason: Patient Refused Furosemide (Furosemide 20 Mg Tablet) 20 mg PO DAILY [facility]; Protocol Last Admin: 08/23/25 08:35 Dose: 20 mg Documented By: LUZ Gabapentin (Gabapentin 600 Mg Tablet) 600 mg PO TID [facility] Last Admin: 08/23/25 14:53 Dose: 600 mg Documented By: LUZ Glucose (Glucose Gel 15 Gm Gel..Gram.) 15 gm PO Q15M PRN; Protocol PRN Reason: per Hypoglycemia Standing Ord. Insulin Glargine (Insulin Glargine,Hum.Rec.Anlog 100 Unit/Ml 10 Ml Vial) 15 unit SUBCUT DAILY [facility] Last Admin: 08/23/25 08:36 Dose: 15 unit Documented By: LUZ Insulin Glargine (Insulin Glargine,Hum.Rec.Anlog 100 Unit/Ml 10 Ml Vial) 40 unit SUBCUT BEDTIME [facility] Last Admin: 08/22/25 20:54 Dose: 40 unit Documented By: JH Insulin Human Lispro (Insulin Lispro 100 Unit/Ml 3 Ml Vial) 0 unit SUBCUT QIDACHS [facility]; Protocol Last Admin: 08/23/25 11:59 Dose: 2 unit Documented By: LUZ Lidocaine (Lidocaine 4 % Patch Adh..Patch) 1 patch TRANSDERMA DAILY PRN; Protocol PRN Reason: R flank pain Melatonin (Melatonin 3 Mg Tablet) 6 mg PO BEDTIME [facility] Last Admin: 08/22/25 20:53 Dose: 6 mg Documented By: JH Metoprolol Succinate (Metoprolol Succinate Er 50 Mg Tab.Er.24h) 50 mg PO DAILY [facility]; Protocol Last Admin: 08/23/25 08:34 Dose: 50 mg Documented By: LUZ Montelukast Sodium (Montelukast Sodium 10 Mg Tablet) 10 mg PO BEDTIME [facility] Last Admin: 08/22/25 20:53 Dose: 10 mg Documented By: JH Omeprazole (Omeprazole 20 Mg Capsule.Dr) 20 mg PO DAILY@0800 [facility] Last Admin: 08/23/25 08:35 Dose: 20 mg Documented By: LUZ Ondansetron HCl (Ondansetron Hcl 4 Mg/2 Ml Vial) 4 mg IVPUSH Q8H PRN PRN Reason: Nausea and Vomiting Polyethylene Glycol (Polyethylene Glycol 3350 17 Gm Powd.Pack) 17 gm PO BID [facility] Last Admin: 08/23/25 08:36 Dose: 17 gm Documented By: LUZ Prednisone (Prednisone 20 Mg Tablet) 10 mg PO DAILY [facility]; Taper Stop: 08/25/25 08:59 Last Admin: 08/23/25 08:35 Dose: 10 mg Documented By: LUZ Risperidone (Risperidone 1 Mg Tablet) 1 mg PO BID [facility] Last Admin: 08/23/25 08:34 Dose: 1 mg Documented By: LUZ Senna (Sennosides 8.6 Mg Tablet) 8.6 mg PO BEDTIME [facility] Last Admin: 08/22/25 20:53 Dose: 8.6 mg Documented By: JH Simethicone (Simethicone 80 Mg Tab.Chew) 80 mg PO QIDWMHS PRN PRN Reason: Gas Last Admin: 08/14/25 21:01 Dose: 80 mg Documented By: JUAN Sodium Chloride (0.9 % Sodium Chloride Flush 3 Ml Syringe) 3 ml IVFLUSH QSHIFT [facility] Last Admin: 08/23/25 14:54 Dose: Not Given Documented By: LUZ Non-Admin Reason: No Access Sodium Chloride (Sodium Chloride 0.65 % Nasal 44 Ml Sprbtl) 1 spray NOSTRIL-B Q1H PRN PRN Reason: Nasal Congestion Tamsulosin HCl (Tamsulosin Hcl 0.4 Mg Capsule) 0.4 mg PO BEDTIME [facility] Last Admin: 08/22/25 20:53 Dose: 0.4 mg Documented By: JH Thiamine HCl (Thiamine Hcl 100 Mg Tablet) 100 mg PO DAILY [facility] Last Admin: 08/23/25 08:35 Dose: 100 mg Documented By: LUZ Tizanidine HCl (Tizanidine Hcl 4 Mg Tablet) 2 mg PO BEDTIME [facility] Last Admin: 08/22/25 20:53 Dose: 2 mg Documented By: JH Labs 08/15/25 06:40 08/15/25 06:40 Labs: Laboratory Results - last 24 hr 08/22/25 08/22/25 08/23/25 16:07 20:27 07:46 POC Glucose 260 H 300 H 145 H 08/23/25 11:32 POC Glucose 195 H Assessment and Plan (1) Acute and chronic respiratory failure with hypoxia: Status: Acute (2) Acute kidney injury superimposed on stage 3b chronic kidney disease: Status: Acute Plan 75yo M initially admitted to [facility] 07/15/25 for MDD with self-harming behavior, developed hypoxia and transferred to hospitalist service 08/12 for treatment of multifocal PNA, COPD exacerbation, MAMADOU, hyperkalemia; does not need IPLOC but unable to take care of self, awaiting SNF placement in [place] 1.Acute hypoxic respiratory failure due to multifocal PNA/acute COPD exacerbation - treated with doxycycline + ceftriaxone 08/14-08/17, levofloxacin + doxycycline 08/17-08/19 - was on IV methylprednisolone and on prednisone taper now to complete 08/25 -weaned off O2 -follow sats 2.Prerenal acute kidney injury (in backdrop of chronic kidney disease stage IIIB) -responded to volume -follow renal/divalents 3.CAD -no acute issues at this time -continue outpatient therapies 4.CHF -stable and well compensated -adjust therapies as indicated 5. Diabetes type 2 -acceptable control on current regimen -reduced hs glargine by 20%; continued AM glargine at same dose -lispro correctional scale -adjust as indicated enoxaparin dispo: awaiting placement at [facility] in [place] In my clinical judgment, the patient requires continued inpatient hospitalization for the following reasons: placement Quality Stroke Does the patient have a stroke diagnosis?: No VTE Prior VTE?: No VTE Risk Level:: Medical - moderate - high VTE Device Contraindication: Treatment Not Indicated VTE Drug Contraindication: N/A - Med Ordered
[2025-08-23 16:31] LABS: Glucose, Whole Blood 239 mg/dL (60-115)
[2025-08-23 19:29] VITALS: BP 149/67; PULSE 67; RESP 20; TEMP 36.1; O2SAT 95
[2025-08-23 20:37] LABS: Glucose, Whole Blood 188 mg/dL (60-115)
[2025-08-23] MEDS: Insulin Glargine,Hum.rec.anlog 100 UNIT/ML 10 ML VIAL 40 UNIT SUBCUT (21:26)
[2025-08-24] VITALS (7 sets, daily range): BP systolic 134–167; BP diastolic 61–75; PULSE 64–82; RESP 16–20; TEMP 36–37; O2SAT 95–99
--- NOTE | 2025-08-24 04:24 | PC.NURSE ---
Late entry: Pt's POC at 20:33 was 188. Pt had MARCIA SSI & Lantus. This RN notified the conference interpreter Hospitalist WILL Pruitt about giving the full amount of Lantus 40 units. Per PA, to give the full amount of Lantus if pt has been eating well and hold the sliding scale insulin. Pt was given the Lantus dose, see MAR, pt was provided with a snack.Will continue to monitor the pt's POC.
[2025-08-24 07:20] LABS: Glucose, Whole Blood 219 mg/dL (60-115)
[2025-08-24] MEDS: Insulin Glargine,Hum.rec.anlog 100 UNIT/ML 10 ML VIAL 15 UNIT SUBCUT (07:57)
[2025-08-24] MEDS: Metoprolol Succinate ER 50 MG TAB.ER.24H PO (07:58)
[2025-08-24] MEDS: Ferrous Sulfate 324 MG TABLET.DR PO (07:58)
[2025-08-24 11:15] LABS: Glucose, Whole Blood 194 mg/dL (60-115)
--- NOTE | 2025-08-24 13:25 | P.PNIM_ITS ---
Subjective Subjective Date of Service: 08/24/25 Interval History: Continued to void well without [place]. Responded well to increase of Lasix Review of Systems Denies chest pain Denies shortness of breath Denies nausea vomiting diarrhea Denies fever chills Physical Exam 2 Vital Signs: Vital Signs: Last Vital Signs Temp 96.8 F 08/24/25 11:28 Pulse 68 08/24/25 11:28 Resp 16 08/24/25 11:28 BP 134/61 08/24/25 11:28 Pulse Ox 98 08/24/25 11:28 O2 Del Method Room Air 08/24/25 11:28 O2 Flow Rate 2 08/14/25 07:29 BMI result Body Mass Index 40.7 Const: Other: Awake alert no acute distress Resp: Other: Clear to auscultation bilaterally no rales rhonchi or wheezes Cardio: Other: No S4; positive S1-S2; no S3 murmurs rubs or gallops GI: Other: Soft nontender nondistended normoactive bowel sounds Extrem: Other: No edema bilaterally Objective Data Active Medications Albuterol/Ipratropium (Albuterol/Iprat 2.5/0.5mg 3 Ml Ampul.Neb) 3 ml INHALE Q4H PRN PRN Reason: Shortness of Breath/Wheezing Last Admin: 08/13/25 23:14 Dose: 3 ml Documented By: JOSE Ascorbic Acid (Ascorbic Acid 500 Mg Tablet) 500 mg PO DAILY [facility] Last Admin: 08/24/25 07:59 Dose: 500 mg Documented By: LUZ Aspirin (Aspirin 81 Mg Tab.Chew) 81 mg PO DAILY [facility] Last Admin: 08/24/25 07:58 Dose: 81 mg Documented By: LUZ Atorvastatin Calcium (Atorvastatin Calcium 40 Mg Tablet) 40 mg PO BEDTIME [facility] Last Admin: 08/23/25 21:29 Dose: 40 mg Documented By: STEPHANIE Benzocaine (Throat Lozenge, Medicated Lozenge) 1 lozenge MUCOUS MEM Q2H PRN PRN Reason: Sore Throat Calcium Carbonate (Calcium Carbonate 750 Mg Tab.Chew) 750 mg PO Q4H PRN PRN Reason: Heartburn Last Admin: 08/14/25 18:43 Dose: 750 mg Documented By: GIN Cyanocobalamin (Cyanocobalamin (Vitamin B-12) 1,000 Mcg Tablet) 1,000 mcg PO DAILY [facility] Last Admin: 08/24/25 07:59 Dose: 1,000 mcg Documented By: LUZ Dextrose (Dextrose 50 % 25 Gm/50 Ml Syringe) 25 gm IVPUSH Q15M PRN; Protocol PRN Reason: per Hypoglycemia Standing Ord. Docusate Sodium (Docusate Sodium 100 Mg Capsule) 100 mg PO BID [facility] Last Admin: 08/24/25 07:59 Dose: 100 mg Documented By: LUZ Empagliflozin (Empagliflozin 10 Mg Tablet) 10 mg PO DAILY [facility] Last Admin: 08/24/25 07:58 Dose: 10 mg Documented By: LUZ Enoxaparin Sodium (Enoxaparin Sodium 40 Mg/0.4 Ml Syringe) 40 mg SUBCUT Q24H [facility] Last Admin: 08/23/25 14:53 Dose: 40 mg Documented By: LUZ Ergocalciferol (Ergocalciferol (Vitamin D2) 1,250 Mcg Capsule) 1,250 mcg PO Fr@0900 [facility] Last Admin: 08/19/25 08:50 Dose: 1,250 mcg Documented By: MYNOR Ferrous Sulfate (Ferrous Sulfate 324 Mg Tablet.Dr) 324 mg PO DAILY [facility] Last Admin: 08/24/25 07:58 Dose: 324 mg Documented By: LUZ Fluticasone Propionate (Fluticasone Propionate Nasal 16 Gm Spencer) 1 spray NOSTRIL-B DAILY [facility] Last Admin: 08/24/25 07:59 Dose: Not Given Documented By: LUZ Non-Admin Reason: Patient Refused Furosemide (Furosemide 20 Mg Tablet) 20 mg PO DAILY [facility]; Protocol Last Admin: 08/24/25 07:57 Dose: 20 mg Documented By: LUZ Gabapentin (Gabapentin 600 Mg Tablet) 600 mg PO TID [facility] Last Admin: 08/24/25 07:59 Dose: 600 mg Documented By: LUZ Glucose (Glucose Gel 15 Gm Gel..Gram.) 15 gm PO Q15M PRN; Protocol PRN Reason: per Hypoglycemia Standing Ord. Insulin Glargine (Insulin Glargine,Hum.Rec.Anlog 100 Unit/Ml 10 Ml Vial) 15 unit SUBCUT DAILY [facility] Last Admin: 08/24/25 07:57 Dose: 15 unit Documented By: LUZ Insulin Glargine (Insulin Glargine,Hum.Rec.Anlog 100 Unit/Ml 10 Ml Vial) 40 unit SUBCUT BEDTIME [facility] Last Admin: 08/23/25 21:26 Dose: 40 unit Documented By: STEPHANIE Insulin Human Lispro (Insulin Lispro 100 Unit/Ml 3 Ml Vial) 0 unit SUBCUT QIDACHS [facility]; Protocol Last Admin: 08/24/25 11:29 Dose: 2 unit Documented By: LUZ Lidocaine (Lidocaine 4 % Patch Adh..Patch) 1 patch TRANSDERMA DAILY PRN; Protocol PRN Reason: R flank pain Melatonin (Melatonin 3 Mg Tablet) 6 mg PO BEDTIME [facility] Last Admin: 08/23/25 21:28 Dose: 6 mg Documented By: STEPHANIE Metoprolol Succinate (Metoprolol Succinate Er 50 Mg Tab.Er.24h) 50 mg PO DAILY [facility]; Protocol Last Admin: 08/24/25 07:58 Dose: 50 mg Documented By: LUZ Montelukast Sodium (Montelukast Sodium 10 Mg Tablet) 10 mg PO BEDTIME [facility] Last Admin: 08/23/25 21:28 Dose: 10 mg Documented By: STEPHANIE Omeprazole (Omeprazole 20 Mg Capsule.Dr) 20 mg PO DAILY@0800 [facility] Last Admin: 08/24/25 07:58 Dose: 20 mg Documented By: LUZ Ondansetron HCl (Ondansetron Hcl 4 Mg/2 Ml Vial) 4 mg IVPUSH Q8H PRN PRN Reason: Nausea and Vomiting Polyethylene Glycol (Polyethylene Glycol 3350 17 Gm Powd.Pack) 17 gm PO BID [facility] Last Admin: 08/24/25 07:59 Dose: Not Given Documented By: LUZ Non-Admin Reason: Patient Refused Prednisone (Prednisone 20 Mg Tablet) 10 mg PO DAILY [facility]; Taper Stop: 08/25/25 08:59 Last Admin: 08/24/25 07:58 Dose: 10 mg Documented By: LUZ Risperidone (Risperidone 1 Mg Tablet) 1 mg PO BID [facility] Last Admin: 08/24/25 07:59 Dose: 1 mg Documented By: LUZ Senna (Sennosides 8.6 Mg Tablet) 8.6 mg PO BEDTIME [facility] Last Admin: 08/23/25 21:29 Dose: 8.6 mg Documented By: STEPHANIE Simethicone (Simethicone 80 Mg Tab.Chew) 80 mg PO QIDWMHS PRN PRN Reason: Gas Last Admin: 08/14/25 21:01 Dose: 80 mg Documented By: JUAN Sodium Chloride (0.9 % Sodium Chloride Flush 3 Ml Syringe) 3 ml IVFLUSH QSHIFT [facility] Last Admin: 08/24/25 08:00 Dose: Not Given Documented By: LUZ Non-Admin Reason: No Access Sodium Chloride (Sodium Chloride 0.65 % Nasal 44 Ml Sprbtl) 1 spray NOSTRIL-B Q1H PRN PRN Reason: Nasal Congestion Tamsulosin HCl (Tamsulosin Hcl 0.4 Mg Capsule) 0.4 mg PO BEDTIME [facility] Last Admin: 08/23/25 21:28 Dose: 0.4 mg Documented By: STEPHANIE Thiamine HCl (Thiamine Hcl 100 Mg Tablet) 100 mg PO DAILY [facility] Last Admin: 08/24/25 07:59 Dose: 100 mg Documented By: LUZ Tizanidine HCl (Tizanidine Hcl 4 Mg Tablet) 2 mg PO BEDTIME [facility] Last Admin: 08/23/25 21:29 Dose: 2 mg Documented By: STEPHANIE Labs 08/15/25 06:40 08/15/25 06:40 Labs: Laboratory Results - last 24 hr 08/23/25 08/23/25 08/24/25 16:22 20:33 07:17 POC Glucose 239 H 188 H 219 H 08/24/25 11:10 POC Glucose 194 H Assessment and Plan (1) Acute and chronic respiratory failure with hypoxia: Status: Acute (2) Acute kidney injury superimposed on stage 3b chronic kidney disease: Status: Acute Plan 75yo M initially admitted to [facility] 07/15/25 for MDD with self-harming behavior, developed hypoxia and transferred to hospitalist service 08/12 for treatment of multifocal PNA, COPD exacerbation, MAMADOU, hyperkalemia; does not need IPLOC but unable to take care of self, awaiting SNF placement in [place] 1.Acute hypoxic respiratory failure due to multifocal PNA/acute COPD exacerbation - treated with doxycycline + ceftriaxone 08/14-08/17, levofloxacin + doxycycline 08/17-08/19 - was on IV methylprednisolone and on prednisone taper now to complete 08/25 -weaned off O2 -follow sats 2.Prerenal acute kidney injury (in backdrop of chronic kidney disease stage IIIB) -responded to volume -follow renal/divalents 3.CAD -no acute issues at this time -continue outpatient therapies 4.CHF -stable and well compensated -adjust therapies as indicated -Lasix increased as per lower extremity edema. Can switch to p.o. in a.m. 5. Diabetes type 2 -acceptable control on current regimen -reduced hs glargine by 20%; continued AM glargine at same dose -lispro correctional scale -adjust as indicated enoxaparin dispo: awaiting placement at [facility] in [place] In my clinical judgment, the patient requires continued inpatient hospitalization for the following reasons: placement Quality Stroke Does the patient have a stroke diagnosis?: No VTE Prior VTE?: No VTE Risk Level:: Medical - moderate - high VTE Device Contraindication: Treatment Not Indicated VTE Drug Contraindication: N/A - Med Ordered
--- NOTE | 2025-08-24 13:27 | PM.DS ---
DS: Providers Provider Date of admission: 08/12/25 07:00 Primary care physician: Unknown Physician Consults: 08/12/25 06:37 Consult for Sitter Routine Reason for consultation: depression, self harm, [facility] pt Has provider been notified: No 08/15/25 10:30 Inpt CARE Team Crisis Consult Routine Comment: Reason for consultation: transfer to [facility] DS: Diagnosis Discharge Diagnosis (1) Acute and chronic respiratory failure with hypoxia: Status: Acute (2) Acute kidney injury superimposed on stage 3b chronic kidney disease: Status: Acute DS: Summary Hospital Course Hospital Course: 75 year old who was initially admitted to [facility] for MDD with self harming behavior on 07/15, developed acute hypoxic respiratory failure requiring supplemental oxygen. on imaging found to have bilateral multifocal pneumonia. treated with IV abs and steroids with improvement of his symptoms. patient developed mild MAMADOU and hyperkalemia, resolved after holding losartan and gabapentin. Patient at this time states that he feels well, denies any SOB. patient assessed by PT/OT and does not require any PT/OT at this time Acute respiratory failure with hypoxia due to multifocal pneumonia with bilateral pleural effusions and acute COPD exacerbation, resolved continue doxy/ceftriaxone, transitiont to PO doxy and levofloxacin for 2 days s/p iv methylprednisolone, medrol dose romeo ordered Hyperkalemia, resolved continue lasix hold losartan and rogelio for now, restart as outpatient chronic constipation bowel regimen Depression with self harming behavior per care team not a patient for [facility] at this time as no HI/SI chronic normocytic anemia H/H at baseline continue iron, b12, thiamine supplementation chronic pain tramadol and tizanidine resumed gabapentin D/c in the setting of MAMADOU morbid obesity BMI elevated body habitus likely contributing to respiratory symptoms Coronary artery disease/history of stroke/CHF/hypertension aspirin, Plavix, atorvastatin, Jardiance, metoprolol and Lasix hold losartan for hyperkalemia and MAMADOU, may restart as outpatient 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 in setting of MAMADOU, resume as outpatient Chronic kidney disease Stage 3B appears stable with baseline renal function Vitamin-D deficiency vit D BPH tamsulosin GERD PPI Physical Exam Vital Signs: Vital Signs: Last Vital Signs Temp 96.8 F 08/24/25 11:28 Pulse 68 08/24/25 11:28 Resp 16 08/24/25 11:28 BP 134/61 08/24/25 11:28 Pulse Ox 98 08/24/25 11:28 O2 Del Method Room Air 08/24/25 11:28 O2 Flow Rate 2 08/14/25 07:29 BMI result Body Mass Index 40.7 DS: Data Data Completed and Pending Labs on day of discharge: Laboratory Results - last 24 hr 08/23/25 08/23/25 08/24/25 16:22 20:33 07:17 POC Glucose 239 H 188 H 219 H 08/24/25 11:10 POC Glucose 194 H Discharge Plan Discharge Anticipated Discharge Date/Time: 08/15/25 12:18 Patient Disposition: Home, Self-Care Discharge Diagnosis: MDD, Pneumonia Referrals: Physician,Unknown J [Primary Care Provider, Medical] - 1 Week Discharge Medications: New doxycycline monohydrate 100 mg Capsule 100 mg PO Q12H 3 Days Qty: 6 0RF levofloxacin 750 mg Tablet 750 mg PO Q24H 3 Days Qty: 3 0RF methylprednisolone [Medrol (Romeo)] 4 mg tablets,dose pack 4 mg PO DAILY Qty: 21 0RF Rx Instructions: take as per medrol dose romeo recs Continued atorvastatin 40 mg Tablet 40 mg PO BEDTIME Qty: 0 0RF tizanidine 4 mg Tablet 2 mg PO BEDTIME Qty: 0 0RF metoprolol succinate 50 mg Tablet Extended Release 24 Hr 50 mg PO DAILY Qty: 0 0RF tramadol 50 mg Tablet 50 mg PO Q6H PRN (Reason: severe left hip pain) Qty: 0 0RF lorazepam 0.5 mg Tablet 0.5 mg PO BID PRN (Reason: Anxiety) Qty: 0 0RF tamsulosin 0.4 mg Capsule 0.4 mg PO BEDTIME Qty: 0 0RF docusate sodium 100 mg Capsule 100 mg PO BID Qty: 0 0RF aspirin 81 mg Tablet,Chewable 81 mg PO DAILY Qty: 0 0RF furosemide 20 mg Tablet 20 mg PO DAILY Qty: 0 0RF Protocol: Hold for SBP< HOLD for SBP < : 90 albuterol sulfate [Ventolin HFA] 90 mcg/actuation Hfa Aerosol Inhaler 2 puff inhalation RQ4H PRN (Reason: SOB/Wheezing) Qty: 0 0RF fluticasone propionate 50 mcg/actuation [place],Suspension 1 spray intranasal DAILY Qty: 0 0RF risperidone 1 mg Tablet 1 mg PO BID Qty: 0 0RF [place] Nasal 0.65 % Aerosol,[place] 1 spray intranasal Q1H PRN (Reason: Nasal congestion) Qty: 0 0RF ferrous sulfate 324 mg (65 mg iron) Tablet,Delayed Release (Dr/Ec) 324 mg PO DAILY Qty: 0 0RF Sore Throat (benzocaine-menth) 15-3.6 mg Lozenge 1 eduar mucous membrane Q2H PRN (Reason: Sore Throat) Qty: 0 0RF Spiriva Respimat 2.5 mcg/actuation Mist 2 puff inhalation RDAILY Qty: 0 0RF sennosides [Senna Lax] 8.6 mg Tablet 8.6 mg PO BEDTIME Qty: 0 0RF insulin glargine [Lantus U-100 Insulin] 100 unit/mL Solution 15 unit subcut DAILY Qty: 0 0RF insulin glargine [Lantus U-100 Insulin] 100 unit/mL Solution 50 unit subcut BEDTIME Qty: 0 0RF lidocaine [Lidocaine Pain Relief] 4 % Adhesive Patch,Medicated 1 patch transdermal DAILY PRN (Reason: R flank pain) Qty: 0 0RF Protocol: Apply to: Apply to: R flank polyethylene glycol 3350 17 gram Powder In Packet 17 g PO DAILY Qty: 0 0RF cyanocobalamin (vitamin B-12) [Vitamin B-12] 1,000 mcg Tablet 1,000 mcg PO DAILY Qty: 0 0RF melatonin 3 mg Tablet 6 mg PO BEDTIME Qty: 0 0RF pantoprazole 20 mg Tablet,Delayed Release (Dr/Ec) 40 mg PO DAILY Qty: 0 0RF ascorbic acid (vitamin C) [Vitamin C] 500 mg Tablet 500 mg PO DAILY Qty: 0 0RF montelukast 10 mg Tablet 10 mg PO BEDTIME Qty: 0 0RF ergocalciferol (vitamin D2) [Vitamin D2] 1,250 mcg (50,000 unit) Capsule 1,250 mcg PO Fr@0900 Qty: 0 0RF insulin lispro [Admelog U-100 Insulin lispro] 100 unit/mL Solution See Protocol subcut QIDACHS Qty: 0 0RF Protocol: Insulin Correction Scale Less than or equal to 110 ---- Give (units): 0 111 to 150 Give (units): 0 151 to 200 Give (units): 2 201 to 250 Give (units): 4 251 to 300 Give (units): 6 301 to 350 Give (units): 8 Greater than 350 Give (units): 10 Call MD if Blood Glucose > : 350 thiamine mononitrate (vit B1) 100 mg Tablet 100 mg PO DAILY Qty: 0 0RF Jardiance 10 mg Tablet 10 mg PO DAILY Qty: 0 0RF Discontinued gabapentin 600 mg Tablet 600 mg PO TID Qty: 0 0RF Activity on Discharge: As tolerated Stand Alone Forms: Patient Portal Discharge page Print Language: Bhutanese Care Plan Goals: continue taking antibiotics for Pneumonia continue with depression medications Health Concerns: depression with psychosis diabetes pneumonia Plan of Treatment: continue antibioitics and medrol dose romeo follow up with psychiatry as outpatient hold losartan and gabapentin secondary to kidney disease and high potassium Assessment: 75 year old who was initially admitted to [facility] for MDD with self harming behavior on 07/15, developed acute hypoxic respiratory failure requiring supplemental oxygen. on imaging found to have bilateral multifocal pneumonia. treated with IV abs and steroids with improvement of his symptoms. Stable for discharge. Patient at this time states that he feels well, denies any SOB. Patient Instructions: Bacterial Pneumonia (DC), Depression in Older Adults (DC)
[2025-08-24 16:08] LABS: Glucose, Whole Blood 330 mg/dL (60-115)
[2025-08-24 20:36] LABS: Glucose, Whole Blood 240 mg/dL (60-115)
[2025-08-24] MEDS: Insulin Glargine,Hum.rec.anlog 100 UNIT/ML 10 ML VIAL 40 UNIT SUBCUT (21:07)
[2025-08-25 03:33] VITALS: RESP 18
[2025-08-25 05:36] LABS: MANUAL DIFF FLAG NO
[2025-08-25 05:42] LABS: Hematocrit 25.9 % (42.0-52.0); Hemoglobin 7.6 g/dl (14.0-18.0); Imm Gran Abs Auto 0.33 X10*3/uL (0.00-0.03); Imm Gran Pct Auto 2.9 % (0.0-0.4); Lymphocytes Absolute Auto 1.1 X10*3/uL (1.2-4.9); Mean Corpuscular HGB Conc 29.3 g/dl (31.0-36.0); Mean Corpuscular Hemoglobin 26.3 pg (27.0-33.0); Mean Corpuscular Volume 89.6 fL (80.0-98.0); NRBC Abs Auto 0.030 X10*3/uL (0.0-0.012); NRBC Pct Auto 0.3 /100WBC (0.0-0.2); Platelet Count 254 X10*3/uL (160-400); Red Blood Count 2.89 X10*6/uL (4.60-5.80); White Blood Count 11.5 X10*3/uL (4.8-10.8)
[2025-08-25 06:00] LABS: Alanine Aminotransferase 23 U/L (0-40); Albumin Level 3.4 g/dL (3.5-5.0); Alkaline Phosphatase 102 U/L (39-117); Anion Gap 14 (12-20); Aspartate Amino Transferase 24 U/L (5-37); Blood Urea Nitrogen 49 mg/dL (9-16); Calcium 8.4 mg/dL (8.4-10.2); Carbon Dioxide 24 mmol/L (22-29); Chloride 107 mmol/L (96-108); Creatinine Clr Calc Pharmacy 57.3; Estimated Glomerular Filt Rate 56; Potassium 4.6 mmol/L (3.3-5.1); Sodium 140 mmol/L (135-145); Total Protein 6.2 g/dL (6.5-8.0)
[2025-08-25 07:10] VITALS: BP 154/67; PULSE 75; RESP 18; TEMP 36.8; O2SAT 98
[2025-08-25 07:36] LABS: Glucose, Whole Blood 187 mg/dL (60-115)
[2025-08-25] MEDS: Insulin Glargine,Hum.rec.anlog 100 UNIT/ML 10 ML VIAL 15 UNIT SUBCUT (07:54)
[2025-08-25] MEDS: Metoprolol Succinate ER 50 MG TAB.ER.24H PO (07:54)
[2025-08-25] MEDS: Ferrous Sulfate 324 MG TABLET.DR PO (07:54)
--- NOTE | 2025-08-25 10:42 | P.PNIM_ITS ---
Subjective Subjective Date of Service: 08/25/25 Interval History: Patient seen and examined at bedside this morning, in no acute respiratory distress, patient states that he is awaiting to be discharged to [place], no acute overnight events. Review of Systems Review of Systems: Yes all other systems are reviewed and are negative Physical Exam 2 Exam: Exam: General: AxOx2, No acute distress Head: AT/NC ENT: Moist mucous membranes Neck: supple CVS; RRR, S1 S2 normal Lungs: Clear bilateral breath sounds, no wheezes or crackles Abd: Soft non tender, non distended Ext: No edema and no calf tenderness MSK: moving all 4 limbs Skin: No cyanosis or edema Psych: Cooperative with exam Neurology: no focal deficit Vital Signs: Vital Signs: Last Vital Signs Temp 98.3 F 08/25/25 07:10 Pulse 75 08/25/25 07:10 Resp 18 08/25/25 07:10 BP 154/67 H 08/25/25 07:10 Pulse Ox 98 08/25/25 07:10 O2 Del Method Room Air 08/25/25 07:10 O2 Flow Rate 2 08/14/25 07:29 BMI result Body Mass Index 40.7 Objective Data Active Medications Albuterol/Ipratropium (Albuterol/Iprat 2.5/0.5mg 3 Ml Ampul.Neb) 3 ml INHALE Q4H PRN PRN Reason: Shortness of Breath/Wheezing Last Admin: 08/13/25 23:14 Dose: 3 ml Documented By: JOSE Ascorbic Acid (Ascorbic Acid 500 Mg Tablet) 500 mg PO DAILY [facility] Last Admin: 08/25/25 07:53 Dose: 500 mg Documented By: AAKASH Aspirin (Aspirin 81 Mg Tab.Chew) 81 mg PO DAILY [facility] Last Admin: 08/25/25 07:54 Dose: 81 mg Documented By: AAKASH Atorvastatin Calcium (Atorvastatin Calcium 40 Mg Tablet) 40 mg PO BEDTIME [facility] Last Admin: 08/24/25 21:10 Dose: 40 mg Documented By: STEPHANIE Benzocaine (Throat Lozenge, Medicated Lozenge) 1 lozenge MUCOUS MEM Q2H PRN PRN Reason: Sore Throat Calcium Carbonate (Calcium Carbonate 750 Mg Tab.Chew) 750 mg PO Q4H PRN PRN Reason: Heartburn Last Admin: 08/14/25 18:43 Dose: 750 mg Documented By: GIN Cyanocobalamin (Cyanocobalamin (Vitamin B-12) 1,000 Mcg Tablet) 1,000 mcg PO DAILY [facility] Last Admin: 08/25/25 07:53 Dose: 1,000 mcg Documented By: AAKASH Dextrose (Dextrose 50 % 25 Gm/50 Ml Syringe) 25 gm IVPUSH Q15M PRN; Protocol PRN Reason: per Hypoglycemia Standing Ord. Docusate Sodium (Docusate Sodium 100 Mg Capsule) 100 mg PO BID [facility] Last Admin: 08/25/25 07:53 Dose: 100 mg Documented By: AAKASH Empagliflozin (Empagliflozin 10 Mg Tablet) 10 mg PO DAILY [facility] Last Admin: 08/25/25 07:54 Dose: 10 mg Documented By: AAKASH Enoxaparin Sodium (Enoxaparin Sodium 40 Mg/0.4 Ml Syringe) 40 mg SUBCUT Q24H [facility] Last Admin: 08/24/25 15:02 Dose: 40 mg Documented By: LUZ Ergocalciferol (Ergocalciferol (Vitamin D2) 1,250 Mcg Capsule) 1,250 mcg PO Fr@0900 [facility] Last Admin: 08/19/25 08:50 Dose: 1,250 mcg Documented By: MYNOR Ferrous Sulfate (Ferrous Sulfate 324 Mg Tablet.Dr) 324 mg PO DAILY [facility] Last Admin: 08/25/25 07:54 Dose: 324 mg Documented By: AAKASH Fluticasone Propionate (Fluticasone Propionate Nasal 16 Gm [place]) 1 spray NOSTRIL-B DAILY [facility] Last Admin: 08/25/25 07:59 Dose: 1 spray Documented By: AAKASH Furosemide (Furosemide 20 Mg Tablet) 20 mg PO DAILY [facility]; Protocol Last Admin: 08/25/25 07:53 Dose: 20 mg Documented By: AAKASH Gabapentin (Gabapentin 600 Mg Tablet) 600 mg PO TID [facility] Last Admin: 08/25/25 07:54 Dose: 600 mg Documented By: AAKASH Glucose (Glucose Gel 15 Gm Gel..Gram.) 15 gm PO Q15M PRN; Protocol PRN Reason: per Hypoglycemia Standing Ord. Insulin Glargine (Insulin Glargine,Hum.Rec.Anlog 100 Unit/Ml 10 Ml Vial) 15 unit SUBCUT DAILY [facility] Last Admin: 08/25/25 07:54 Dose: 15 unit Documented By: AAKASH Insulin Glargine (Insulin Glargine,Hum.Rec.Anlog 100 Unit/Ml 10 Ml Vial) 40 unit SUBCUT BEDTIME [facility] Last Admin: 08/24/25 21:07 Dose: 40 unit Documented By: STEPHANIE Insulin Human Lispro (Insulin Lispro 100 Unit/Ml 3 Ml Vial) 0 unit SUBCUT QIDACHS [facility]; Protocol Last Admin: 08/25/25 07:54 Dose: 2 unit Documented By: AAKASH Lidocaine (Lidocaine 4 % Patch Adh..Patch) 1 patch TRANSDERMA DAILY PRN; Protocol PRN Reason: R flank pain Melatonin (Melatonin 3 Mg Tablet) 6 mg PO BEDTIME [facility] Last Admin: 08/24/25 21:12 Dose: Not Given Documented By: STEPHANIE Non-Admin Reason: Patient Refused Metoprolol Succinate (Metoprolol Succinate Er 50 Mg Tab.Er.24h) 50 mg PO DAILY [facility]; Protocol Last Admin: 08/25/25 07:54 Dose: 50 mg Documented By: AAKASH Montelukast Sodium (Montelukast Sodium 10 Mg Tablet) 10 mg PO BEDTIME [facility] Last Admin: 08/24/25 21:11 Dose: 10 mg Documented By: STEPHANIE Omeprazole (Omeprazole 20 Mg Capsule.Dr) 20 mg PO DAILY@0800 [facility] Last Admin: 08/25/25 07:54 Dose: 20 mg Documented By: AAKASH Ondansetron HCl (Ondansetron Hcl 4 Mg/2 Ml Vial) 4 mg IVPUSH Q8H PRN PRN Reason: Nausea and Vomiting Polyethylene Glycol (Polyethylene Glycol 3350 17 Gm Powd.Pack) 17 gm PO BID [facility] Last Admin: 08/25/25 07:57 Dose: Not Given Documented By: AAKASH Non-Admin Reason: Patient Refused Risperidone (Risperidone 1 Mg Tablet) 1 mg PO BID [facility] Last Admin: 08/25/25 07:53 Dose: 1 mg Documented By: AAKASH Senna (Sennosides 8.6 Mg Tablet) 8.6 mg PO BEDTIME [facility] Last Admin: 08/24/25 21:12 Dose: 8.6 mg Documented By: STEPHANIE Simethicone (Simethicone 80 Mg Tab.Chew) 80 mg PO QIDWMHS PRN PRN Reason: Gas Last Admin: 08/14/25 21:01 Dose: 80 mg Documented By: JUAN Sodium Chloride (0.9 % Sodium Chloride Flush 3 Ml Syringe) 3 ml IVFLUSH QSHIFT [facility] Last Admin: 08/25/25 07:57 Dose: Not Given Documented By: AAKASH Non-Admin Reason: No Access Sodium Chloride (Sodium Chloride 0.65 % Nasal 44 Ml Sprbtl) 1 spray NOSTRIL-B Q1H PRN PRN Reason: Nasal Congestion Tamsulosin HCl (Tamsulosin Hcl 0.4 Mg Capsule) 0.4 mg PO BEDTIME [facility] Last Admin: 08/24/25 21:12 Dose: 0.4 mg Documented By: STEPHANIE Thiamine HCl (Thiamine Hcl 100 Mg Tablet) 100 mg PO DAILY [facility] Last Admin: 08/25/25 07:54 Dose: 100 mg Documented By: AAKASH Tizanidine HCl (Tizanidine Hcl 4 Mg Tablet) 2 mg PO BEDTIME [facility] Last Admin: 08/24/25 21:11 Dose: 2 mg Documented By: STEPHANIE Comments: [id number] Labs 08/25/25 05:25 08/25/25 05:25 Labs: Laboratory Results - last 24 hr 08/24/25 08/24/25 08/24/25 11:10 16:00 20:31 MCV MCH MCHC RDW Plt Count MPV Immature Gran % (Auto) Neut % (Auto) Lymph % (Auto) [place] % (Auto) Eos % (Auto) Baso % (Auto) Lymph # (Auto) [place] # (Auto) Eos # (Auto) Baso # (Auto) Abs Immat Gran (auto) Absolute Neuts (auto) Absolute Nucleated RBC Nucleated RBC % (auto) Anion Gap Estim Creat Clear Calc Estimated GFR POC Glucose 194 H 330 H 240 H Fasting Glucose Calcium Total Bilirubin AST ALT Alkaline Phosphatase Total Protein Albumin 08/25/25 08/25/25 05:25 07:15 MCV 89.6 MCH 26.3 L MCHC 29.3 L RDW 18.5 H Plt Count 254 D MPV 11.0 Immature Gran % (Auto) 2.9 H Neut % (Auto) 80.1 H Lymph % (Auto) 9.1 L [place] % (Auto) 7.4 Eos % (Auto) 0.3 Baso % (Auto) 0.2 Lymph # (Auto) 1.1 L [place] # (Auto) 0.9 Eos # (Auto) 0.0 Baso # (Auto) 0.0 Abs Immat Gran (auto) 0.33 H Absolute Neuts (auto) 9.2 H Absolute Nucleated RBC 0.030 H Nucleated RBC % (auto) 0.3 H Anion Gap 14 Estim Creat Clear Calc 57.3 Estimated GFR 56 POC Glucose 187 H Fasting Glucose 203 H Calcium 8.4 Total Bilirubin 0.2 AST 24 ALT 23 Alkaline Phosphatase 102 Total Protein 6.2 L Albumin 3.4 L Assessment and Plan (1) MDD (major depressive disorder), recurrent, severe, with psychosis: Status: Acute (2) Congestive heart failure: Status: Acute (3) Stage 3b chronic kidney disease (CKD): Status: Acute Plan 75yo M initially admitted to [facility] 07/15/25 for MDD with self-harming behavior, developed hypoxia and transferred to hospitalist service 08/12 for treatment of multifocal PNA, COPD exacerbation, MAMADOU, hyperkalemia; does not need IPLOC but unable to take care of self, awaiting SNF placement in [place] Acute hypoxic respiratory failure due to multifocal PNA/acute COPD exacerbation, improved - treated with doxycycline + ceftriaxone 08/14-08/17, levofloxacin + doxycycline 08/17-08/19 - was on IV methylprednisolone and on prednisone taper now to complete 08/25 -weaned off O2 -follow sats CAD -no acute issues at this time -continue outpatient therapies CHF -stable and well compensated -adjust therapies as indicated Diabetes type 2 -acceptable control on current regimen -reduced hs glargine by 20%; continued AM glargine at same dose -lispro correctional scale -adjust as indicated DVT PPx: Enoxaparin dispo: awaiting placement at SNF in [place] Total time managing care of this patient today: 35 minutes. Quality Stroke Does the patient have a stroke diagnosis?: No VTE Prior VTE?: No VTE Risk Level:: Medical - moderate - high VTE Device Contraindication: Treatment Not Indicated VTE Drug Contraindication: N/A - Med Ordered
[2025-08-25 11:17] LABS: Glucose, Whole Blood 148 mg/dL (60-115)
[2025-08-25 11:32] VITALS: BP 131/64; PULSE 76; RESP 16; TEMP 36.3; O2SAT 97
[2025-08-25 15:06] VITALS: BP 136/56; PULSE 68; RESP 18; TEMP 36.6; O2SAT 96
[2025-08-25 16:07] LABS: Glucose, Whole Blood 206 mg/dL (60-115)
[2025-08-25 19:59] VITALS: BP 139/60; PULSE 75; RESP 20; TEMP 37.1; O2SAT 99
[2025-08-25 21:09] LABS: Glucose, Whole Blood 150 mg/dL (60-115)
[2025-08-25] MEDS: Insulin Glargine,Hum.rec.anlog 100 UNIT/ML 10 ML VIAL 40 UNIT SUBCUT (21:21)
[2025-08-26] VITALS (7 sets, daily range): BP systolic 110–147; BP diastolic 52–67; PULSE 67–97; RESP 18–20; TEMP 36.1–36.6; O2SAT 94–100
[2025-08-26 07:46] LABS: Glucose, Whole Blood 167 mg/dL (60-115)
[2025-08-26] MEDS: Ferrous Sulfate 324 MG TABLET.DR PO (08:03)
[2025-08-26] MEDS: Metoprolol Succinate ER 50 MG TAB.ER.24H PO (08:04)
[2025-08-26] MEDS: Insulin Glargine,Hum.rec.anlog 100 UNIT/ML 10 ML VIAL 15 UNIT SUBCUT (08:04)
[2025-08-26 10:21] LABS: Chlamydia pneumoniae PCR Not Detected (Not Detect.); Coronavirus 229E PCR Not Detected (Not Detect.); Coronavirus HKU1 PCR Not Detected (Not Detect.); Coronavirus NL63 PCR Not Detected (Not Detect.); Coronavirus OC43 PCR Not Detected (Not Detect.); RSV PCR Not Detected (Not Detect.); Rhino/Enterovirus PCR Not Detected (Not Detect.)
--- NOTE | 2025-08-26 10:22 | MHC.CM.PN ---
Addendum entered by Abi Albrecht RN 08/26/25 15:03: Liaison confirmed they have received LEANDRO. Still in review. Anticipate decision by Friday. Rec'd call from granddaughter who requested referral to [facility]. Referral sent via [employer], facility declined. CM will continue to follow. Original Note: Received completed LEANDRO and sent to [facility] via [facility]. Attempted to call facility x2 to follow up. No answer. Will continue attempts to follow up via [facility] and telephone.
[2025-08-26 10:37] LABS: SARS-CoV-2 PCR Not Detected (Not Detect.)
[2025-08-26 10:38] LABS: Influenza A H1 PCR Not Detected (Not Detect.); Influenza A H1-2009 PCR Not Detected (Not Detect.); Influenza A H3 PCR Not Detected (Not Detect.)
[2025-08-26 11:25] LABS: Glucose, Whole Blood 193 mg/dL (60-115)
--- NOTE | 2025-08-26 12:17 | P.PNIM_ITS ---
Subjective Subjective Date of Service: 08/26/25 Interval History: Patient seen examined at bedside this morning, patient states that he is experiencing sore throat, ear pain. No fevers. Review of Systems Review of Systems: Yes all other systems are reviewed and are negative Physical Exam 2 Exam: Exam: General: AxOx2, No acute distress Head: AT/NC ENT: Moist mucous membranes Neck: supple CVS; RRR, S1 S2 normal Lungs: Clear bilateral breath sounds, no wheezes or crackles Abd: Soft non tender, non distended Ext: No edema and no calf tenderness MSK: moving all 4 limbs Skin: No cyanosis or edema Psych: Cooperative with exam Neurology: no focal deficit Vital Signs: Vital Signs: Last Vital Signs Temp 97.2 F 08/26/25 11:26 Pulse 67 08/26/25 11:26 Resp 18 08/26/25 11:26 BP 110/56 L 08/26/25 11:26 Pulse Ox 96 08/26/25 11:26 O2 Del Method Room Air 08/26/25 11:26 O2 Flow Rate 2 08/14/25 07:29 BMI result Body Mass Index 40.7 Objective Data Active Medications Albuterol/Ipratropium (Albuterol/Iprat 2.5/0.5mg 3 Ml Ampul.Neb) 3 ml INHALE Q4H PRN PRN Reason: Shortness of Breath/Wheezing Last Admin: 08/13/25 23:14 Dose: 3 ml Documented By: JOSE Ascorbic Acid (Ascorbic Acid 500 Mg Tablet) 500 mg PO DAILY [facility] Last Admin: 08/26/25 08:04 Dose: 500 mg Documented By: AAKASH Aspirin (Aspirin 81 Mg Tab.Chew) 81 mg PO DAILY [facility] Last Admin: 08/26/25 08:04 Dose: 81 mg Documented By: AAKASH Atorvastatin Calcium (Atorvastatin Calcium 40 Mg Tablet) 40 mg PO BEDTIME [facility] Last Admin: 08/25/25 21:20 Dose: 40 mg Documented By: MILADIS Benzocaine (Throat Lozenge, Medicated Lozenge) 1 lozenge MUCOUS MEM Q2H PRN PRN Reason: Sore Throat Calcium Carbonate (Calcium Carbonate 750 Mg Tab.Chew) 750 mg PO Q4H PRN PRN Reason: Heartburn Last Admin: 08/14/25 18:43 Dose: 750 mg Documented By: IGN Cyanocobalamin (Cyanocobalamin (Vitamin B-12) 1,000 Mcg Tablet) 1,000 mcg PO DAILY [facility] Last Admin: 08/26/25 08:04 Dose: 1,000 mcg Documented By: AAKASH Dextrose (Dextrose 50 % 25 Gm/50 Ml Syringe) 25 gm IVPUSH Q15M PRN; Protocol PRN Reason: per Hypoglycemia Standing Ord. Docusate Sodium (Docusate Sodium 100 Mg Capsule) 100 mg PO BID [facility] Last Admin: 08/26/25 08:04 Dose: 100 mg Documented By: AAKASH Empagliflozin (Empagliflozin 10 Mg Tablet) 10 mg PO DAILY [facility] Last Admin: 08/26/25 08:04 Dose: 10 mg Documented By: AAKASH Enoxaparin Sodium (Enoxaparin Sodium 40 Mg/0.4 Ml Syringe) 40 mg SUBCUT Q24H [facility] Last Admin: 08/25/25 15:40 Dose: 40 mg Documented By: AAKASH Ergocalciferol (Ergocalciferol (Vitamin D2) 1,250 Mcg Capsule) 1,250 mcg PO Fr@0900 [facility] Last Admin: 08/26/25 08:04 Dose: 1,250 mcg Documented By: AAKASH Ferrous Sulfate (Ferrous Sulfate 324 Mg Tablet.Dr) 324 mg PO DAILY [facility] Last Admin: 08/26/25 08:03 Dose: 324 mg Documented By: AAKASH Fluticasone Propionate (Fluticasone Propionate Nasal 16 Gm [place]) 1 spray NOSTRIL-B DAILY [facility] Last Admin: 08/26/25 08:05 Dose: 1 spray Documented By: AAKASH Furosemide (Furosemide 20 Mg Tablet) 20 mg PO DAILY [facility]; Protocol Last Admin: 08/26/25 08:04 Dose: 20 mg Documented By: AAKASH Gabapentin (Gabapentin 600 Mg Tablet) 600 mg PO TID [facility] Last Admin: 08/26/25 08:04 Dose: 600 mg Documented By: AAKASH Glucose (Glucose Gel 15 Gm Gel..Gram.) 15 gm PO Q15M PRN; Protocol PRN Reason: per Hypoglycemia Standing Ord. Guaifenesin/Dextromethorphan (Guaifenesin Dm 200/20/10 Ml 10 Ml Syrup) 10 ml PO Q8H [facility] Stop: 08/31/25 08:59 Last Admin: 08/26/25 09:10 Dose: Not Given Documented By: AAKASH Non-Admin Reason: pt refused Guaifenesin/Dextromethorphan (Guaifenesin Dm 600/30 1 Tab Tab.Er.12h) 1 tab PO BID [facility] Stop: 08/31/25 10:44 Last Admin: 08/26/25 11:58 Dose: Not Given Documented By: AAKASH Non-Admin Reason: Patient Refused Insulin Glargine (Insulin Glargine,Hum.Rec.Anlog 100 Unit/Ml 10 Ml Vial) 15 unit SUBCUT DAILY [facility] [place] Last Admin: 08/26/25 08:04 Dose: 15 unit Documented By: AAKASH Insulin Glargine (Insulin Glargine,Hum.Rec.Anlog 100 Unit/Ml 10 Ml Vial) 40 unit SUBCUT BEDTIME [facility] [place] Last Admin: 08/25/25 21:21 Dose: 40 unit Documented By: MILADIS Insulin Human Lispro (Insulin Lispro 100 Unit/Ml 3 Ml Vial) 0 unit SUBCUT QIDACHS [facility]; Protocol Last Admin: 08/26/25 11:42 Dose: 2 unit Documented By: AAKASH Lidocaine (Lidocaine 4 % Patch Adh..Patch) 1 patch TRANSDERMA DAILY PRN; Protocol PRN Reason: R flank pain Melatonin (Melatonin 3 Mg Tablet) 6 mg PO BEDTIME [facility] Last Admin: 08/25/25 21:20 Dose: 6 mg Documented By: MILADIS Metoprolol Succinate (Metoprolol Succinate Er 50 Mg Tab.Er.24h) 50 mg PO DAILY [facility]; Protocol Last Admin: 08/26/25 08:04 Dose: 50 mg Documented By: AAKASH Montelukast Sodium (Montelukast Sodium 10 Mg Tablet) 10 mg PO BEDTIME [facility] [place] Last Admin: 08/25/25 21:21 Dose: 10 mg Documented By: MILADIS Omeprazole (Omeprazole 20 Mg Capsule.Dr) 20 mg PO DAILY@0800 [facility] Last Admin: 08/26/25 08:03 Dose: 20 mg Documented By: AAKASH Ondansetron HCl (Ondansetron Hcl 4 Mg/2 Ml Vial) 4 mg IVPUSH Q8H PRN PRN Reason: Nausea and Vomiting Polyethylene Glycol (Polyethylene Glycol 3350 17 Gm Powd.Pack) 17 gm PO BID [facility] Last Admin: 08/26/25 08:08 Dose: Not Given Documented By: AAKASH Non-Admin Reason: Patient Refused Risperidone (Risperidone 1 Mg Tablet) 1 mg PO BID [facility] [place] Last Admin: 08/26/25 08:03 Dose: 1 mg Documented By: AAKASH Senna (Sennosides 8.6 Mg Tablet) 8.6 mg PO BEDTIME [facility] Last Admin: 08/25/25 21:21 Dose: 8.6 mg Documented By: MILADIS Simethicone (Simethicone 80 Mg Tab.Chew) 80 mg PO QIDWMHS PRN PRN Reason: Gas Last Admin: 08/14/25 21:01 Dose: 80 mg Documented By: JUAN Sodium Chloride (0.9 % Sodium Chloride Flush 3 Ml Syringe) 3 ml IVFLUSH QSHIFT [facility] Last Admin: 08/26/25 08:08 Dose: Not Given Documented By: AAKASH Non-Admin Reason: No Access Sodium Chloride (Sodium Chloride 0.65 % Nasal 44 Ml Sprbtl) 1 spray NOSTRIL-B Q1H PRN PRN Reason: Nasal Congestion Tamsulosin HCl (Tamsulosin Hcl 0.4 Mg Capsule) 0.4 mg PO BEDTIME [facility] Last Admin: 08/25/25 21:20 Dose: 0.4 mg Documented By: MILADIS Thiamine HCl (Thiamine Hcl 100 Mg Tablet) 100 mg PO DAILY [facility] Last Admin: 08/26/25 08:04 Dose: 100 mg Documented By: AAKASH Tizanidine HCl (Tizanidine Hcl 4 Mg Tablet) 2 mg PO BEDTIME [facility] Last Admin: 08/25/25 21:20 Dose: 2 mg Documented By: MILADIS Labs 08/25/25 05:25 08/25/25 05:25 Labs: Laboratory Results - last 24 hr 08/25/25 08/25/25 08/26/25 16:03 21:05 07:42 POC Glucose 206 H 150 H 167 H Respiratory Panel Rico Adenovirus (Rapid PCR) B.pert (TEM-PCR) B.parapertussis DNA PCR C. pneumoniae DNA (PCR) Coronavirus OC43 (PCR) Coronavirus HKU1 (PCR) Coronavirus 229E (PCR) Coronavirus NL63 (PCR) Human Metapneumovir PCR Influenza A (RT-PCR) Influenza A (H1) PCR Influ A (H1/) PCR Influenza A (H3) PCR Influenza B (RT-PCR) M. pneumoniae (PCR) Parainfluenza 1 (PCR) Parainfluenza 2 (PCR) Parainfluenza 3 (PCR) Parainfluenza 4 (PCR) RSV (PCR) Entero/Rhino (PCR) SARS-CoV-2 RNA (RT-PCR) 08/26/25 08/26/25 09:06 11:18 POC Glucose 193 H Respiratory Panel Rico See Note Adenovirus (Rapid PCR) Not Detected B.pert (TEM-PCR) Not Detected B.parapertussis DNA PCR Not Detected C. pneumoniae DNA (PCR) Not Detected Coronavirus OC43 (PCR) Not Detected Coronavirus HKU1 (PCR) Not Detected Coronavirus 229E (PCR) Not Detected Coronavirus NL63 (PCR) Not Detected Human Metapneumovir PCR Not Detected Influenza A (RT-PCR) Not Detected Influenza A (H1) PCR Not Detected Influ A (H1) PCR Not Detected Influenza A (H3) PCR Not Detected Influenza B (RT-PCR) Not Detected M. pneumoniae (PCR) Not Detected Parainfluenza 1 (PCR) Not Detected Parainfluenza 2 (PCR) Not Detected Parainfluenza 3 (PCR) Not Detected Parainfluenza 4 (PCR) Not Detected RSV (PCR) Not Detected Entero/Rhino (PCR) Not Detected SARS-CoV-2 RNA (RT-PCR) Not Detected Assessment and Plan (1) Stage 3b chronic kidney disease (CKD): Status: Acute (2) Depression: Status: Acute Plan 75yo M initially admitted to [facility] 07/15/25 for MDD with self-harming behavior, developed hypoxia and transferred to hospitalist service 08/12 for treatment of multifocal PNA, COPD exacerbation, MAMADOU, hyperkalemia; does not need IPLOC but unable to take care of self, awaiting SNF placement in [place] Acute hypoxic respiratory failure due to multifocal PNA/acute COPD exacerbation, resolved - treated with doxycycline + ceftriaxone 08/14-08/17, levofloxacin + doxycycline 08/17-08/19 - was on IV methylprednisolone and on prednisone taper on08/25 -weaned off O2 -follow sats Suspect URI infection -chest x ray ordered -respiratory panel negative -will consult Speech therapy to assess for aspiration CAD -no acute issues at this time -continue home meds CHF -stable and well compensated -adjust therapies as indicated Diabetes type 2 -acceptable control on current regimen -reduced hs glargine by 20%; continued AM glargine at same dose -lispro correctional scale -adjust as indicated DVT PPx: Enoxaparin dispo: awaiting placement at [facility] in [place] Total time managing care of this patient today: 35 minutes. Quality Stroke Does the patient have a stroke diagnosis?: No VTE Prior VTE?: No VTE Risk Level:: Medical - moderate - high VTE Device Contraindication: Treatment Not Indicated VTE Drug Contraindication: N/A - Med Ordered
--- NOTE | 2025-08-26 15:00 | MHC.SL.SWA ---
Speech Pathologist Impression: Mild Oral Phase Dysphagia Risk of Aspiration Due to: Limited Dentition Dysphasia Diet Status: No Change Liquid Consistency and Strategies for Safe Swallow: Liquid Intake Recommendation: Thin Liquid Intake Strategies: Small Sips Solid Food Consistency: Dietary Recommendations: Regular Additional Modifications to Solid Foods: CASE MANAGEMENT DIRECTOR advised patient on aspiration precautions and recommended strategies for clearance: take small bites, chew food well, alternate with sips of liquid, remain upright during PO intake and for at least 30 minutes afterwards. No changes made to diet order at this time. CASE MANAGEMENT DIRECTOR will continue to follow to monitor tolerance/re-assess swallow. Oral Medication Intake: Whole with Liquid Please contact the pharmacy regarding appropriate crushable or liquid drug formulations that are available whenever modified delivery is recommended. Compensatory Strategies and Precautions to be Taken for Safe Swallow: Sitting Upright (90 deg) Double Swallow Small Bites and Sips Alternate Liquids/Solids Rate of Ingestion Change Avoid Specific Foods Supervision While Eating and Drinking for Safe Swallow: Intermittent Supervision Foods to Avoid: Hard/difficult to chew solids; patient well aware of mastication abilities. Swallowing Recommended Treatments: Compens. Strategy Educat. Recommendation for Speech: Inpatient Speech Therapy Stamp Classifier Clinican/Clinical Fellow: No Supervisory Statement: I have reviewed and agree with the student/clinical fellow's documentation: No Speech Language Pathologist: Elizabeth Templeton M.A., CCC-CASE MANAGEMENT DIRECTOR
[2025-08-26 16:26] LABS: Glucose, Whole Blood 196 mg/dL (60-115)
[2025-08-26] MEDS: guaiFENesin DM 200/20/10 ML 10 ML SYRUP PO (16:33)
[2025-08-26 20:02] LABS: Glucose, Whole Blood 195 mg/dL (60-115)
[2025-08-26] MEDS: guaiFENesin DM 600/30 1 TAB TAB.ER.12H PO (20:21)
[2025-08-26] MEDS: Insulin Glargine,Hum.rec.anlog 100 UNIT/ML 10 ML VIAL 40 UNIT SUBCUT (20:24)
[2025-08-27 03:43] VITALS: BP 138/62; PULSE 76; RESP 18; TEMP 36.3; O2SAT 94
[2025-08-27 06:57] VITALS: BP 114/58; PULSE 84; RESP 16; TEMP 36.6; O2SAT 92
[2025-08-27 07:08] LABS: Glucose, Whole Blood 178 mg/dL (60-115)
[2025-08-27] MEDS: Insulin Glargine,Hum.rec.anlog 100 UNIT/ML 10 ML VIAL 15 UNIT SUBCUT (08:01)
[2025-08-27] MEDS: guaiFENesin DM 600/30 1 TAB TAB.ER.12H PO ×2 (08:02→20:25)
[2025-08-27 08:03] VITALS: BP 110/54; PULSE 84
[2025-08-27] MEDS: Ferrous Sulfate 324 MG TABLET.DR PO (08:03)
[2025-08-27] MEDS: Metoprolol Succinate ER 50 MG TAB.ER.24H PO (08:04)
--- NOTE | 2025-08-27 09:57 | HO.PM.IMPN ---
Subjective Subjective Date of Service: 08/27/25 Interval History: Patient seen and examined at bedside this morning, patient states that his chest feels little bit better, respiratory panel negative, however x-ray shows right lower lobe pneumonia, similar to prior x-rays, worsening. Review of Systems Review of Systems: Yes all other systems are reviewed and are negative Physical Exam Exam: Exam: General: AxOx3, No acute distress Head: AT/NC ENT: Moist mucous membranes Neck: supple CVS; RRR, S1 S2 normal Lungs: Right lower base with rales Abd: Soft non tender, non distended Ext: No edema and no calf tenderness MSK: moving all 4 limbs Skin: No cyanosis or edema Psych: Cooperative with exam Neurology: no focal deficit Vital Signs: Vital Signs: Last Vital Signs Temp 97.9 F 08/27/25 06:57 Pulse 84 08/27/25 08:03 Resp 16 08/27/25 06:57 BP 110/54 L 08/27/25 08:03 Pulse Ox 92 08/27/25 06:57 O2 Del Method Room Air 08/27/25 06:57 O2 Flow Rate 2 08/14/25 07:29 BMI result Body Mass Index 40.7 Objective Data Active Medications Albuterol/Ipratropium (Albuterol/Iprat 2.5/0.5mg 3 Ml Ampul.Neb) 3 ml INHALE Q4H PRN PRN Reason: Shortness of Breath/Wheezing Last Admin: 08/13/25 23:14 Dose: 3 ml Documented By: JOSE Ascorbic Acid (Ascorbic Acid 500 Mg Tablet) 500 mg PO DAILY [facility] Last Admin: 08/27/25 08:02 Dose: 500 mg Documented By: KISHA Aspirin (Aspirin 81 Mg Tab.Chew) 81 mg PO DAILY [facility] Last Admin: 08/27/25 08:02 Dose: 81 mg Documented By: KISHA Atorvastatin Calcium (Atorvastatin Calcium 40 Mg Tablet) 40 mg PO BEDTIME [facility] Last Admin: 08/26/25 20:21 Dose: 40 mg Documented By: TED Benzocaine (Throat Lozenge, Medicated Lozenge) 1 lozenge MUCOUS MEM Q2H PRN PRN Reason: Sore Throat Calcium Carbonate (Calcium Carbonate 750 Mg Tab.Chew) 750 mg PO Q4H PRN PRN Reason: Heartburn Last Admin: 08/14/25 18:43 Dose: 750 mg Documented By: GIN Cyanocobalamin (Cyanocobalamin (Vitamin B-12) 1,000 Mcg Tablet) 1,000 mcg PO DAILY [facility] Last Admin: 08/27/25 08:04 Dose: 1,000 mcg Documented By: KISHA Dextrose (Dextrose 50 % 25 Gm/50 Ml Syringe) 25 gm IVPUSH Q15M PRN; Protocol PRN Reason: per Hypoglycemia Standing Ord. Docusate Sodium (Docusate Sodium 100 Mg Capsule) 100 mg PO BID [facility] Last Admin: 08/27/25 08:02 Dose: 100 mg Documented By: KISHA Empagliflozin (Empagliflozin 10 Mg Tablet) 10 mg PO DAILY [facility] Last Admin: 08/27/25 08:02 Dose: 10 mg Documented By: KISHA Enoxaparin Sodium (Enoxaparin Sodium 40 Mg/0.4 Ml Syringe) 40 mg SUBCUT Q24H [facility] Last Admin: 08/26/25 14:21 Dose: 40 mg Documented By: AAKASH Ergocalciferol (Ergocalciferol (Vitamin D2) 1,250 Mcg Capsule) 1,250 mcg PO Fr@0900 [facility] Last Admin: 08/26/25 08:04 Dose: 1,250 mcg Documented By: AAKASH Ferrous Sulfate (Ferrous Sulfate 324 Mg Tablet.Dr) 324 mg PO DAILY [facility] Last Admin: 08/27/25 08:03 Dose: 324 mg Documented By: KISHA Fluticasone Propionate (Fluticasone Propionate Nasal 16 Gm [place]) 1 spray NOSTRIL-B DAILY [facility] Last Admin: 08/27/25 09:40 Dose: 1 spray Documented By: KISHA Furosemide (Furosemide 20 Mg Tablet) 20 mg PO DAILY [facility]; Protocol Last Admin: 08/27/25 08:03 Dose: 20 mg Documented By: KISHA Gabapentin (Gabapentin 600 Mg Tablet) 600 mg PO TID [facility] Last Admin: 08/27/25 08:04 Dose: 600 mg Documented By: KISHA Glucose (Glucose Gel 15 Gm Gel..Gram.) 15 gm PO Q15M PRN; Protocol PRN Reason: per Hypoglycemia Standing Ord. Guaifenesin/Dextromethorphan (Guaifenesin Dm 600/30 1 Tab Tab.Er.12h) 1 tab PO BID [facility] Stop: 08/31/25 10:44 Last Admin: 08/27/25 08:02 Dose: 1 tab Documented By: KISHA Insulin Glargine (Insulin Glargine,Hum.Rec.Anlog 100 Unit/Ml 10 Ml Vial) 15 unit SUBCUT DAILY [facility] Last Admin: 08/27/25 08:01 Dose: 15 unit Documented By: KISHA Insulin Glargine (Insulin Glargine,Hum.Rec.Anlog 100 Unit/Ml 10 Ml Vial) 40 unit SUBCUT BEDTIME [facility] Last Admin: 08/26/25 20:24 Dose: 40 unit Documented By: TED Insulin Human Lispro (Insulin Lispro 100 Unit/Ml 3 Ml Vial) 0 unit SUBCUT QIDACHS [facility]; Protocol Last Admin: 08/27/25 08:01 Dose: 2 unit Documented By: KISHA Lidocaine (Lidocaine 4 % Patch Adh..Patch) 1 patch TRANSDERMA DAILY PRN; Protocol PRN Reason: R flank pain Melatonin (Melatonin 3 Mg Tablet) 6 mg PO BEDTIME [facility] Last Admin: 08/26/25 20:22 Dose: 6 mg Documented By: TED Metoprolol Succinate (Metoprolol Succinate Er 50 Mg Tab.Er.24h) 50 mg PO DAILY [facility]; Protocol Last Admin: 08/27/25 08:04 Dose: 50 mg Documented By: KISHA Montelukast Sodium (Montelukast Sodium 10 Mg Tablet) 10 mg PO BEDTIME [facility] Last Admin: 08/26/25 20:21 Dose: 10 mg Documented By: TED Omeprazole (Omeprazole 20 Mg Capsule.) 20 mg PO DAILY@0800 [facility] Last Admin: 08/27/25 08:02 Dose: 20 mg Documented By: KISHA Ondansetron HCl (Ondansetron Hcl 4 Mg/2 Ml Vial) 4 mg IVPUSH Q8H PRN PRN Reason: Nausea and Vomiting Polyethylene Glycol (Polyethylene Glycol 3350 17 Gm Powd.Pack) 17 gm PO BID [facility] Last Admin: 08/27/25 08:04 Dose: Not Given Documented By: KISHA Non-Admin Reason: Patient Refused Risperidone (Risperidone 1 Mg Tablet) 1 mg PO BID [facility] Last Admin: 08/27/25 08:03 Dose: 1 mg Documented By: KISHA Senna (Sennosides 8.6 Mg Tablet) 8.6 mg PO BEDTIME [facility] Last Admin: 08/26/25 20:22 Dose: 8.6 mg Documented By: TED Simethicone (Simethicone 80 Mg Tab.Chew) 80 mg PO QIDWMHS PRN PRN Reason: Gas Last Admin: 08/14/25 21:01 Dose: 80 mg Documented By: JUAN Sodium Chloride (0.9 % Sodium Chloride Flush 3 Ml Syringe) 3 ml IVFLUSH QSHIFT [facility] Last Admin: 08/27/25 08:04 Dose: Not Given Documented By: KISHA Non-Admin Reason: No Access Sodium Chloride (Sodium Chloride 0.65 % Nasal 44 Ml Sprbtl) 1 spray NOSTRIL-B Q1H PRN PRN Reason: Nasal Congestion Tamsulosin HCl (Tamsulosin Hcl 0.4 Mg Capsule) 0.4 mg PO BEDTIME [facility] Last Admin: 08/26/25 20:22 Dose: 0.4 mg Documented By: TED Thiamine HCl (Thiamine Hcl 100 Mg Tablet) 100 mg PO DAILY [facility] Last Admin: 08/27/25 08:03 Dose: 100 mg Documented By: KISHA Tizanidine HCl (Tizanidine Hcl 4 Mg Tablet) 2 mg PO BEDTIME [facility] Last Admin: 08/26/25 20:20 Dose: 2 mg Documented By: TED Labs 08/25/25 05:25 08/25/25 05:25 Labs: Laboratory Results - last 24 hr 08/26/25 08/26/25 08/26/25 09:06 11:18 16:18 POC Glucose 193 H 196 H Respiratory Panel Rico See Note Adenovirus (Rapid PCR) Not Detected B.pert (TEM-PCR) Not Detected B.parapertussis DNA PCR Not Detected C. pneumoniae DNA (PCR) Not Detected Coronavirus OC43 (PCR) Not Detected Coronavirus HKU1 (PCR) Not Detected Coronavirus 229E (PCR) Not Detected Coronavirus NL63 (PCR) Not Detected Human Metapneumovir PCR Not Detected Influenza A (RT-PCR) Not Detected Influenza A (H1) PCR Not Detected Influ A (H1/09) PCR Not Detected Influenza A (H3) PCR Not Detected Influenza B (RT-PCR) Not Detected M. pneumoniae (PCR) Not Detected Parainfluenza 1 (PCR) Not Detected Parainfluenza 2 (PCR) Not Detected Parainfluenza 3 (PCR) Not Detected Parainfluenza 4 (PCR) Not Detected RSV (PCR) Not Detected Entero/Rhino (PCR) Not Detected SARS-CoV-2 RNA (RT-PCR) Not Detected 08/26/25 08/27/25 19:59 07:04 POC Glucose 195 H 178 H Respiratory Panel [place] Adenovirus (Rapid PCR) B.pert (TEM-PCR) B.parapertussis DNA PCR C. pneumoniae DNA (PCR) Coronavirus OC43 (PCR) Coronavirus HKU1 (PCR) Coronavirus 229E (PCR) Coronavirus NL63 (PCR) Human Metapneumovir PCR Influenza A (RT-PCR) Influenza A (H1) PCR Influ A (H1/09) PCR Influenza A (H3) PCR Influenza B (RT-PCR) M. pneumoniae (PCR) Parainfluenza 1 (PCR) Parainfluenza 2 (PCR) Parainfluenza 3 (PCR) Parainfluenza 4 (PCR) RSV (PCR) Entero/Rhino (PCR) SARS-CoV-2 RNA (RT-PCR) Assessment and Plan (1) Stage 3b chronic kidney disease (CKD): Status: Acute (2) Depression: Status: Acute Plan 75yo M initially admitted to [facility] 07/15/25 for MDD with self-harming behavior, developed hypoxia and transferred to hospitalist service 08/12 for treatment of multifocal PNA, COPD exacerbation, MAMADOU, hyperkalemia; does not need IPLOC but unable to take care of self, awaiting SNF placement in [place] Suspect URI infection/bronchitis -chest x ray with right lung base airspase disease, worsened from prior. patient on mutiple courses of abs doxycycline + ceftriaxone 08/14-08/17, levofloxacin + doxycycline 08/17-08/19 amd recent prednisone taper, will order Chest CT to further assess chest x ray findings. -respiratory panel negative -continue diane nase and mucinex CAD -no acute issues at this time -continue home meds CHF -stable and well compensated -adjust therapies as indicated Diabetes type 2 -acceptable control on current regimen -reduced hs glargine by 20%; continued AM glargine at same dose -lispro correctional scale -adjust as indicated Acute hypoxic respiratory failure due to multifocal PNA/acute COPD exacerbation, resolved Total time managing care of this patient today: 35 minutes. Quality Stroke Does the patient have a stroke diagnosis?: No VTE Prior VTE?: No VTE Risk Level:: Medical - moderate - high VTE Device Contraindication: Treatment Not Indicated VTE Drug Contraindication: N/A - Med Ordered
[2025-08-27 11:10] VITALS: BP 138/62; PULSE 72; RESP 16; TEMP 36.6; O2SAT 96
[2025-08-27 11:11] LABS: Glucose, Whole Blood 286 mg/dL (60-115)
[2025-08-27 15:40] VITALS: BP 114/53; PULSE 69; RESP 18; TEMP 36.3; O2SAT 93
[2025-08-27 15:52] LABS: Glucose, Whole Blood 163 mg/dL (60-115)
[2025-08-27 20:00] VITALS: BP 156/55; PULSE 80; RESP 18; TEMP 37.3; O2SAT 94
[2025-08-27 20:02] LABS: Glucose, Whole Blood 144 mg/dL (60-115)
[2025-08-27] MEDS: Insulin Glargine,Hum.rec.anlog 100 UNIT/ML 10 ML VIAL 40 UNIT SUBCUT (20:23)
[2025-08-28] VITALS: BP 145/63; PULSE 83; RESP 18; TEMP 36.8; O2SAT 93
[2025-08-28 03:33] VITALS: BP 136/73; PULSE 88; RESP 18; TEMP 36.2; O2SAT 92
[2025-08-28 06:57] VITALS: BP 141/65; PULSE 74; RESP 17; TEMP 36.6; O2SAT 92
[2025-08-28 07:04] LABS: Glucose, Whole Blood 70 mg/dL (60-115)
[2025-08-28] MEDS: Metoprolol Succinate ER 50 MG TAB.ER.24H PO (07:50)
[2025-08-28] MEDS: Ferrous Sulfate 324 MG TABLET.DR PO (07:50)
[2025-08-28] MEDS: guaiFENesin DM 600/30 1 TAB TAB.ER.12H PO ×2 (07:50→20:45)
[2025-08-28] MEDS: Insulin Glargine,Hum.rec.anlog 100 UNIT/ML 10 ML VIAL 15 UNIT SUBCUT (07:51)
[2025-08-28 11:08] LABS: Glucose, Whole Blood 238 mg/dL (60-115)
--- NOTE | 2025-08-28 11:45 | P.PNIM_ITS ---
Subjective Subjective Date of Service: 08/28/25 Interval History: Patient seen and examined at bedside this morning, patient states that his chest pain and cough has improved, CT scan showed bronchitis. Review of Systems Review of Systems: Yes all other systems are reviewed and are negative Physical Exam 2 Exam: Exam: General: AxOx2, No acute distress Head: AT/NC ENT: Moist mucous membranes Neck: supple CVS; RRR, S1 S2 normal Lungs: Clear bilateral breath sounds, no wheezes or crackles Abd: Soft non tender, non distended Ext: No edema and no calf tenderness MSK: moving all 4 limbs Skin: No cyanosis or edema Psych: Cooperative with exam Neurology: no focal deficit Vital Signs: Vital Signs: Last Vital Signs Temp 98 F 08/28/25 06:57 Pulse 74 08/28/25 06:57 Resp 17 08/28/25 06:57 BP 141/65 H 08/28/25 06:57 Pulse Ox 92 08/28/25 06:57 O2 Del Method Room Air 08/28/25 06:57 O2 Flow Rate 2 08/14/25 07:29 BMI result Body Mass Index 40.7 Objective Data Active Medications Albuterol/Ipratropium (Albuterol/Iprat 2.5/0.5mg 3 Ml Ampul.Neb) 3 ml INHALE Q4H PRN PRN Reason: Shortness of Breath/Wheezing Last Admin: 08/13/25 23:14 Dose: 3 ml Documented By: JOSE Ascorbic Acid (Ascorbic Acid 500 Mg Tablet) 500 mg PO DAILY [facility] Last Admin: 08/28/25 07:50 Dose: 500 mg Documented By: KISHA Aspirin (Aspirin 81 Mg Tab.Chew) 81 mg PO DAILY [facility] Last Admin: 08/28/25 07:50 Dose: 81 mg Documented By: KISHA Atorvastatin Calcium (Atorvastatin Calcium 40 Mg Tablet) 40 mg PO BEDTIME [facility] Last Admin: 08/27/25 20:26 Dose: 40 mg Documented By: STEPHANIE Benzocaine (Throat Lozenge, Medicated Lozenge) 1 lozenge MUCOUS MEM Q2H PRN PRN Reason: Sore Throat Calcium Carbonate (Calcium Carbonate 750 Mg Tab.Chew) 750 mg PO Q4H PRN PRN Reason: Heartburn Last Admin: 08/14/25 18:43 Dose: 750 mg Documented By: GIN Cyanocobalamin (Cyanocobalamin (Vitamin B-12) 1,000 Mcg Tablet) 1,000 mcg PO DAILY [facility] Last Admin: 08/28/25 07:50 Dose: 1,000 mcg Documented By: KISHA Dextrose (Dextrose 50 % 25 Gm/50 Ml Syringe) 25 gm IVPUSH Q15M PRN; Protocol PRN Reason: per Hypoglycemia Standing Ord. Docusate Sodium (Docusate Sodium 100 Mg Capsule) 100 mg PO BID [facility] Last Admin: 08/28/25 07:50 Dose: 100 mg Documented By: KISHA Empagliflozin (Empagliflozin 10 Mg Tablet) 10 mg PO DAILY [facility] Last Admin: 08/28/25 07:50 Dose: 10 mg Documented By: KISHA Enoxaparin Sodium (Enoxaparin Sodium 40 Mg/0.4 Ml Syringe) 40 mg SUBCUT Q24H [facility] Last Admin: 08/27/25 15:16 Dose: 40 mg Documented By: KISHA Ergocalciferol (Ergocalciferol (Vitamin D2) 1,250 Mcg Capsule) 1,250 mcg PO Fr@0900 [facility] Last Admin: 08/26/25 08:04 Dose: 1,250 mcg Documented By: AAKASH Ferrous Sulfate (Ferrous Sulfate 324 Mg Tablet.Dr) 324 mg PO DAILY [facility] Last Admin: 08/28/25 07:50 Dose: 324 mg Documented By: KISHA Fluticasone Propionate (Fluticasone Propionate Nasal 16 Gm [place]) 1 spray NOSTRIL-B DAILY [facility] Last Admin: 08/28/25 07:51 Dose: 1 spray Documented By: KISHA Furosemide (Furosemide 20 Mg Tablet) 20 mg PO DAILY [facility]; Protocol Last Admin: 08/28/25 07:49 Dose: 20 mg Documented By: KISHA Gabapentin (Gabapentin 600 Mg Tablet) 600 mg PO TID [facility] Last Admin: 08/28/25 07:50 Dose: 600 mg Documented By: KISHA Glucose (Glucose Gel 15 Gm Gel..Gram.) 15 gm PO Q15M PRN; Protocol PRN Reason: per Hypoglycemia Standing Ord. Guaifenesin/Dextromethorphan (Guaifenesin Dm 600/30 1 Tab Tab.Er.12h) 1 tab PO BID [facility] Stop: 08/31/25 10:44 Last Admin: 08/28/25 07:50 Dose: 1 tab Documented By: KISHA Insulin Glargine (Insulin Glargine,Hum.Rec.Anlog 100 Unit/Ml 10 Ml Vial) 15 unit SUBCUT DAILY [facility] Last Admin: 08/28/25 07:51 Dose: 15 unit Documented By: KISHA Insulin Glargine (Insulin Glargine,Hum.Rec.Anlog 100 Unit/Ml 10 Ml Vial) 40 unit SUBCUT BEDTIME [facility] Last Admin: 08/27/25 20:23 Dose: 40 unit Documented By: STEPHANIE Insulin Human Lispro (Insulin Lispro 100 Unit/Ml 3 Ml Vial) 0 unit SUBCUT QIDACHS [facility]; Protocol Last Admin: 08/28/25 11:21 Dose: 4 unit Documented By: KISHA Lidocaine (Lidocaine 4 % Patch Adh..Patch) 1 patch TRANSDERMA DAILY PRN; Protocol PRN Reason: R flank pain Melatonin (Melatonin 3 Mg Tablet) 6 mg PO BEDTIME [facility] Last Admin: 08/27/25 20:28 Dose: Not Given Documented By: STEPHANIE Non-Admin Reason: Patient Refused Metoprolol Succinate (Metoprolol Succinate Er 50 Mg Tab.Er.24h) 50 mg PO DAILY [facility]; Protocol Last Admin: 08/28/25 07:50 Dose: 50 mg Documented By: KISHA Montelukast Sodium (Montelukast Sodium 10 Mg Tablet) 10 mg PO BEDTIME [facility] Last Admin: 08/27/25 20:26 Dose: 10 mg Documented By: STEPHANIE Omeprazole (Omeprazole 20 Mg Capsule.Dr) 20 mg PO DAILY@0800 [facility] Last Admin: 08/28/25 07:50 Dose: 20 mg Documented By: KISHA Ondansetron HCl (Ondansetron Hcl 4 Mg/2 Ml Vial) 4 mg IVPUSH Q8H PRN PRN Reason: Nausea and Vomiting Polyethylene Glycol (Polyethylene Glycol 3350 17 Gm Powd.Pack) 17 gm PO BID [facility] Last Admin: 08/28/25 07:56 Dose: Not Given Documented By: KISHA Non-Admin Reason: Patient Refused Risperidone (Risperidone 1 Mg Tablet) 1 mg PO BID [facility] Last Admin: 08/28/25 07:50 Dose: 1 mg Documented By: KISHA Senna (Sennosides 8.6 Mg Tablet) 8.6 mg PO BEDTIME [facility] Last Admin: 08/27/25 20:25 Dose: 8.6 mg Documented By: STEPHANIE Simethicone (Simethicone 80 Mg Tab.Chew) 80 mg PO QIDWMHS PRN PRN Reason: Gas Last Admin: 08/14/25 21:01 Dose: 80 mg Documented By: JUAN Sodium Chloride (0.9 % Sodium Chloride Flush 3 Ml Syringe) 3 ml IVFLUSH QSHIFT [facility] Last Admin: 08/28/25 07:49 Dose: Not Given Documented By: KISHA Non-Admin Reason: No Access Sodium Chloride (Sodium Chloride 0.65 % Nasal 44 Ml Sprbtl) 1 spray NOSTRIL-B Q1H PRN PRN Reason: Nasal Congestion Tamsulosin HCl (Tamsulosin Hcl 0.4 Mg Capsule) 0.4 mg PO BEDTIME [facility] Last Admin: 08/27/25 20:24 Dose: 0.4 mg Documented By: STEPHANIE Thiamine HCl (Thiamine Hcl 100 Mg Tablet) 100 mg PO DAILY [facility] Last Admin: 08/28/25 07:51 Dose: 100 mg Documented By: KISHA Tizanidine HCl (Tizanidine Hcl 4 Mg Tablet) 2 mg PO BEDTIME [facility] Last Admin: 08/27/25 20:24 Dose: 2 mg Documented By: STEPHANIE Labs 08/25/25 05:25 08/25/25 05:25 Labs: Laboratory Results - last 24 hr 08/27/25 08/27/25 08/28/25 15:49 19:58 06:56 POC Glucose 163 H 144 H 70 08/28/25 11:00 POC Glucose 238 H Assessment and Plan (1) Stage 3b chronic kidney disease (CKD): Status: Acute (2) Depression: Status: Acute Plan 75yo M initially admitted to [facility] 07/15/25 for MDD with self-harming behavior, developed hypoxia and transferred to hospitalist service 08/12 for treatment of multifocal PNA, COPD exacerbation, MAMADOU, hyperkalemia; does not need IPLOC but unable to take care of self, awaiting SNF placement in [place] Bronchitis -chest x ray with right lung base airspase disease, worsened from prior. patient on mutiple courses of abs doxycycline + ceftriaxone 08/14-08/17, levofloxacin + doxycycline 08/17-08/19 amd recent prednisone taper -Chest CT reviewed. -respiratory panel negative -continue diane nase and mucinex CAD -no acute issues at this time -continue home meds CHF -stable and well compensated -adjust therapies as indicated Diabetes type 2 -acceptable control on current regimen -reduced hs glargine by 20%; continued AM glargine at same dose -lispro correctional scale -adjust as indicated Total time managing care of this patient today: 35 minutes. Quality Stroke Does the patient have a stroke diagnosis?: No VTE Prior VTE?: No VTE Risk Level:: Medical - moderate - high VTE Device Contraindication: Treatment Not Indicated VTE Drug Contraindication: N/A - Med Ordered
[2025-08-28 15:44] VITALS: BP 128/61; PULSE 79; RESP 18; TEMP 36.6; O2SAT 99
[2025-08-28 16:45] LABS: Glucose, Whole Blood 184 mg/dL (60-115)
[2025-08-28 20:00] VITALS: BP 128/56; PULSE 77; RESP 19; TEMP 37.4; O2SAT 93
[2025-08-28 20:32] LABS: Glucose, Whole Blood 166 mg/dL (60-115)
[2025-08-28] MEDS: Insulin Glargine,Hum.rec.anlog 100 UNIT/ML 10 ML VIAL 40 UNIT SUBCUT (21:02)
[2025-08-29 03:16] VITALS: BP 109/53; PULSE 89; RESP 20; TEMP 37.2; O2SAT 93
[2025-08-29 06:58] VITALS: BP 134/58; PULSE 75; RESP 16; TEMP 36.1; O2SAT 93
[2025-08-29 07:16] LABS: Anion Gap 12 (12-20); Blood Urea Nitrogen 46 mg/dL (9-16); Calcium 8.6 mg/dL (8.4-10.2); Carbon Dioxide 26 mmol/L (22-29); Chloride 105 mmol/L (96-108); Creatinine Clr Calc Pharmacy 59.2; Estimated Glomerular Filt Rate 58; Potassium 4.7 mmol/L (3.3-5.1); Sodium 138 mmol/L (135-145)
[2025-08-29 07:18] LABS: Glucose, Whole Blood 146 mg/dL (60-115)
[2025-08-29 07:36] LABS: Hematocrit 25.9 % (42.0-52.0); Hemoglobin 7.4 g/dl (14.0-18.0); Mean Corpuscular HGB Conc 28.6 g/dl (31.0-36.0); Mean Corpuscular Hemoglobin 26.0 pg (27.0-33.0); Mean Corpuscular Volume 90.9 fL (80.0-98.0); NRBC Abs Auto 0.000 X10*3/uL (0.0-0.012); NRBC Pct Auto 0.0 /100WBC (0.0-0.2); Platelet Count 204 X10*3/uL (160-400); Red Blood Count 2.85 X10*6/uL (4.60-5.80); White Blood Count 9.6 X10*3/uL (4.8-10.8)
[2025-08-29] MEDS: Ferrous Sulfate 324 MG TABLET.DR PO (08:18)
[2025-08-29] MEDS: Metoprolol Succinate ER 50 MG TAB.ER.24H PO (08:18)
[2025-08-29] MEDS: Insulin Glargine,Hum.rec.anlog 100 UNIT/ML 10 ML VIAL 15 UNIT SUBCUT (08:18)
[2025-08-29] MEDS: guaiFENesin DM 600/30 1 TAB TAB.ER.12H PO ×2 (08:18→20:07)
[2025-08-29 11:28] LABS: Glucose, Whole Blood 169 mg/dL (60-115)
--- NOTE | 2025-08-29 12:19 | MHC.SL.SWA ---
Speech Pathologist Impression: Oropharyngeal swallow WFL Risk of Aspiration Due to: Weakness Dysphasia Diet Status: Liquid Consistency and Strategies for Safe Swallow: Liquid Intake Recommendation: Thin Liquid Intake Strategies: Small Sips Solid Food Consistency: Dietary Recommendations: Regular Additional Modifications to Solid Foods: CONDUIT MECHANIC advised patient on aspiration precautions and recommended strategies for clearance: take small bites, chew food well, alternate with sips of liquid, remain upright during PO intake and for at least 30 minutes afterwards. No changes made to diet order at this time. CONDUIT MECHANIC will continue to follow to monitor tolerance/re-assess swallow. Oral Medication Intake: Whole with Liquid Please contact the pharmacy regarding appropriate crushable or liquid drug formulations that are available whenever modified delivery is recommended. Compensatory Strategies and Precautions to be Taken for Safe Swallow: Sitting Upright (90 deg) Double Swallow Small Bites and Sips Alternate Liquids/Solids Rate of Ingestion Change Avoid Specific Foods Supervision While Eating and Drinking for Safe Swallow: Intermittent Supervision Foods to Avoid: Hard/difficult to chew solids; patient well aware of mastication abilities. Swallowing Recommended Treatments: Compens. Strategy Educat. Recommendation for Speech: Inpatient Speech Therapy Comment: Pt seen for dysphagia follow-up. Pt sitting upright in chair, alert but appearing sleeping. Pt opened eyes when tray arrived, setting up lunch and taking several bites without delay. Pt requested more ice. Pt tolerated regular solids/thin liquids without difficulty; pt is missing dentition but able to formulate/manipulate bolus efficiently. Anterior loss of pieces of rice occurred but pt sensed food escaping and used lingual sweep or wiping mouth to clear. Anterior to posterior transit and trigger of pharyngeal swallow WNL. No overt s/s of aspiration with PO intake, pt paced slowly enough to conserve energy, expressed satisfaction with lunch foods, and did not want extra liquids (only coffee). Pt endorsed mild throat pain persists but noted that ice alleviates the discomfort. RN present to administer insulin, no issues reported by RN with pt PO tolerance. Recc diet as ordered, regular/thin liquid. CONDUIT MECHANIC to followup x1. Frequency/Duration: Date Range for Service Req: Timeline to reassess: Car Designer Clinican/Clinical Fellow: No Supervisory Statement: I have reviewed and agree with the student/clinical fellow's documentation: No Speech Language Pathologist: Ana Donovan M.S., CCC-CONDUIT MECHANIC
--- NOTE | 2025-08-29 13:55 | MHC.CM.PN ---
Addendum entered by Abi Albrecht RN 08/29/25 15:53: [facility], preferred facility, has declined patient d/t recent psych stay. [facility] continues to follow. Spoke w/ liaison via telephone who says [facility] are reviewed by their director, who is out today. They anticipate having an answer tomorrow and will also consider for any sister facilities. Attempted to call granddaughter to update x2 earlier in the day, box full. Able to leave at 15:50 with update. Will continue to follow. Original Note: Patient continues to await LTC bed in [place]. No response from [facility] at this time. Spoke w/ [facility] Roofer, Neda. Facility had previously denied patient, but are now considering. She requested documentation of CARE team clearance, which was sent via [employer]. Facility will review and f/u w/ this CM. Granddaughter aware.
--- NOTE | 2025-08-29 14:31 | P.PNIM_ITS ---
Subjective Subjective Date of Service: 08/29/25 Interval History: Patient seen examined at bedside this morning, no acute respiratory distress. Patient states that he is feeling well, waiting [facility] be [facility] in [place]. Review of Systems Review of Systems: Yes all other systems are reviewed and are negative Physical Exam 2 Exam: Exam: General: AxOx2, No acute distress Head: AT/NC ENT: Moist mucous membranes Neck: supple CVS; RRR, S1 S2 normal Lungs: Clear bilateral breath sounds, no wheezes or crackles Abd: Soft non tender, non distended Ext: No edema and no calf tenderness MSK: moving all 4 limbs Skin: No cyanosis or edema Psych: Cooperative with exam Neurology: no focal deficit Vital Signs: Vital Signs: Last Vital Signs Temp 96.9 F 08/29/25 06:58 Pulse 75 08/29/25 06:58 Resp 16 08/29/25 06:58 BP 134/58 L 08/29/25 06:58 Pulse Ox 93 08/29/25 06:58 O2 Del Method Room Air 08/29/25 06:58 O2 Flow Rate 2 08/14/25 07:29 BMI result Body Mass Index 40.7 Objective Data Active Medications Albuterol/Ipratropium (Albuterol/Iprat 2.5/0.5mg 3 Ml Ampul.Neb) 3 ml INHALE Q4H PRN PRN Reason: Shortness of Breath/Wheezing Last Admin: 08/13/25 23:14 Dose: 3 ml Documented By: JOSE Ascorbic Acid (Ascorbic Acid 500 Mg Tablet) 500 mg PO DAILY [facility] Last Admin: 08/29/25 08:18 Dose: 500 mg Documented By: SVITLANA Aspirin (Aspirin 81 Mg Tab.Chew) 81 mg PO DAILY [facility] Last Admin: 08/29/25 08:18 Dose: 81 mg Documented By: SVITLANA Atorvastatin Calcium (Atorvastatin Calcium 40 Mg Tablet) 40 mg PO BEDTIME [facility] Last Admin: 08/28/25 20:45 Dose: 40 mg Documented By: DAMARIS Benzocaine (Throat Lozenge, Medicated Lozenge) 1 lozenge MUCOUS MEM Q2H PRN PRN Reason: Sore Throat Calcium Carbonate (Calcium Carbonate 750 Mg Tab.Chew) 750 mg PO Q4H PRN PRN Reason: Heartburn Last Admin: 08/14/25 18:43 Dose: 750 mg Documented By: GIN Cyanocobalamin (Cyanocobalamin (Vitamin B-12) 1,000 Mcg Tablet) 1,000 mcg PO DAILY [facility] Last Admin: 08/29/25 08:18 Dose: 1,000 mcg Documented By: SVITLANA Dextrose (Dextrose 50 % 25 Gm/50 Ml Syringe) 25 gm IVPUSH Q15M PRN; Protocol PRN Reason: per Hypoglycemia Standing Ord. Docusate Sodium (Docusate Sodium 100 Mg Capsule) 100 mg PO BID [facility] Last Admin: 08/29/25 08:18 Dose: 100 mg Documented By: SVITLANA Empagliflozin (Empagliflozin 10 Mg Tablet) 10 mg PO DAILY [facility] Last Admin: 08/29/25 08:18 Dose: 10 mg Documented By: SVITLANA Enoxaparin Sodium (Enoxaparin Sodium 40 Mg/0.4 Ml Syringe) 40 mg SUBCUT Q24H [facility] Last Admin: 08/28/25 15:01 Dose: 40 mg Documented By: KISHA Ergocalciferol (Ergocalciferol (Vitamin D2) 1,250 Mcg Capsule) 1,250 mcg PO Fr@0900 [facility] Last Admin: 08/26/25 08:04 Dose: 1,250 mcg Documented By: AAKASH Ferrous Sulfate (Ferrous Sulfate 324 Mg Tablet.Dr) 324 mg PO DAILY [facility] Last Admin: 08/29/25 08:18 Dose: 324 mg Documented By: SVITLANA Fluticasone Propionate (Fluticasone Propionate Nasal 16 Gm [place]) 1 spray NOSTRIL-B DAILY [facility] Last Admin: 08/29/25 09:23 Dose: Not Given Documented By: SVITLANA Non-Admin Reason: left in the room, pt already administered Furosemide (Furosemide 20 Mg Tablet) 20 mg PO DAILY [facility]; Protocol Last Admin: 08/29/25 08:17 Dose: 20 mg Documented By: SVITLANA Gabapentin (Gabapentin 600 Mg Tablet) 600 mg PO TID [facility] Last Admin: 08/29/25 08:18 Dose: 600 mg Documented By: SVITLANA Glucose (Glucose Gel 15 Gm Gel..Gram.) 15 gm PO Q15M PRN; Protocol PRN Reason: per Hypoglycemia Standing Ord. Guaifenesin/Dextromethorphan (Guaifenesin Dm 600/30 1 Tab Tab.Er.12h) 1 tab PO BID [facility] Stop: 08/31/25 10:44 Last Admin: 08/29/25 08:18 Dose: 1 tab Documented By: SVITLANA Insulin Glargine (Insulin Glargine,Hum.Rec.Anlog 100 Unit/Ml 10 Ml Vial) 15 unit SUBCUT DAILY [facility] Last Admin: 08/29/25 08:18 Dose: 15 unit Documented By: SVITLANA Insulin Glargine (Insulin Glargine,Hum.Rec.Anlog 100 Unit/Ml 10 Ml Vial) 40 unit SUBCUT BEDTIME [facility] Last Admin: 08/28/25 21:02 Dose: 40 unit Documented By: DAMARIS Insulin Human Lispro (Insulin Lispro 100 Unit/Ml 3 Ml Vial) 0 unit SUBCUT QIDACHS [facility]; Protocol Last Admin: 08/29/25 11:46 Dose: 2 unit Documented By: SVITLANA Lidocaine (Lidocaine 4 % Patch Adh..Patch) 1 patch TRANSDERMA DAILY PRN; Protocol PRN Reason: R flank pain Melatonin (Melatonin 3 Mg Tablet) 6 mg PO BEDTIME [facility] Last Admin: 08/28/25 20:45 Dose: 6 mg Documented By: DAMARIS Metoprolol Succinate (Metoprolol Succinate Er 50 Mg Tab.Er.24h) 50 mg PO DAILY [facility]; Protocol Last Admin: 08/29/25 08:18 Dose: 50 mg Documented By: SVITLAAN Montelukast Sodium (Montelukast Sodium 10 Mg Tablet) 10 mg PO BEDTIME [facility] Last Admin: 08/28/25 20:45 Dose: 10 mg Documented By: DAMARIS Omeprazole (Omeprazole 20 Mg Capsule.Dr) 20 mg PO DAILY@0800 [facility] Last Admin: 08/29/25 08:17 Dose: 20 mg Documented By: SVITLANA Ondansetron HCl (Ondansetron Hcl 4 Mg/2 Ml Vial) 4 mg IVPUSH Q8H PRN PRN Reason: Nausea and Vomiting Polyethylene Glycol (Polyethylene Glycol 3350 17 Gm Powd.Pack) 17 gm PO BID [facility] Last Admin: 08/29/25 08:19 Dose: Not Given Documented By: SVITLANA Non-Admin Reason: Patient Refused Risperidone (Risperidone 1 Mg Tablet) 1 mg PO BID [facility] Last Admin: 08/29/25 08:18 Dose: 1 mg Documented By: SVITLANA Senna (Sennosides 8.6 Mg Tablet) 8.6 mg PO BEDTIME [facility] Last Admin: 08/28/25 20:45 Dose: 8.6 mg Documented By: DAMARIS Simethicone (Simethicone 80 Mg Tab.Chew) 80 mg PO QIDWMHS PRN PRN Reason: Gas Last Admin: 08/14/25 21:01 Dose: 80 mg Documented By: JUAN Sodium Chloride (0.9 % Sodium Chloride Flush 3 Ml Syringe) 3 ml IVFLUSH QSHIFT [facility] Last Admin: 08/29/25 08:14 Dose: Not Given Documented By: SVITLANA Non-Admin Reason: No Access Sodium Chloride (Sodium Chloride 0.65 % Nasal 44 Ml Sprbtl) 1 spray NOSTRIL-B Q1H PRN PRN Reason: Nasal Congestion Tamsulosin HCl (Tamsulosin Hcl 0.4 Mg Capsule) 0.4 mg PO BEDTIME [facility] Last Admin: 08/28/25 20:45 Dose: 0.4 mg Documented By: DAMARIS Thiamine HCl (Thiamine Hcl 100 Mg Tablet) 100 mg PO DAILY [facility] Last Admin: 08/29/25 08:17 Dose: 100 mg Documented By: SVITLANA Tizanidine HCl (Tizanidine Hcl 4 Mg Tablet) 2 mg PO BEDTIME [facility] Last Admin: 08/28/25 20:46 Dose: 2 mg Documented By: DAMARIS Labs 08/29/25 05:23 08/29/25 05:23 Labs: Laboratory Results - last 24 hr 08/28/25 08/28/25 08/29/25 16:38 20:22 05:23 MCV 90.9 MCH 26.0 L MCHC 28.6 L RDW 18.4 H Plt Count 204 MPV 11.5 Absolute Nucleated RBC 0.000 Nucleated RBC % (auto) 0.0 Anion Gap 12 Estim Creat Clear Calc 59.2 Estimated GFR 58 POC Glucose 184 H 166 H Random Glucose 146 H Calcium 8.6 08/29/25 08/29/25 07:14 11:21 MCV MCH MCHC RDW Plt Count MPV Absolute Nucleated RBC Nucleated RBC % (auto) Anion Gap Estim Creat Clear Calc Estimated GFR POC Glucose 146 H 169 H Random Glucose Calcium Assessment and Plan (1) Depression: Status: Acute Plan 75yo M initially admitted to [facility] 07/15/25 for MDD with self-harming behavior, developed hypoxia and transferred to hospitalist service 08/12 for treatment of multifocal PNA, COPD exacerbation, MAMADOU, hyperkalemia; does not need IPLOC but unable to take care of self, awaiting SNF placement in [place] Bronchitis -chest x ray with right lung base airspase disease, worsened from prior. patient completed multiple courses of abs doxycycline + ceftriaxone 08/14-08/17, levofloxacin + doxycycline 08/17-08/19 amd recent prednisone taper -Chest CT reviewed, with findings suggestive on bronchitis -respiratory panel negative -continue diane nase and mucinex CAD -no acute issues at this time -continue home meds CHF -stable and well compensated -adjust therapies as indicated Diabetes type 2 -acceptable control on current regimen -reduced hs glargine by 20%; continued AM glargine at same dose -lispro correctional scale -adjust as indicated Total time managing care of this patient today: 35 minutes. Quality Stroke Does the patient have a stroke diagnosis?: No VTE Prior VTE?: No VTE Risk Level:: Medical - moderate - high VTE Device Contraindication: Treatment Not Indicated VTE Drug Contraindication: N/A - Med Ordered
[2025-08-29 15:17] VITALS: BP 103/50; PULSE 81; RESP 18; TEMP 36.3; O2SAT 98
[2025-08-29 16:13] LABS: Glucose, Whole Blood 188 mg/dL (60-115)
[2025-08-29 20:00] VITALS: BP 110/55; PULSE 81; RESP 18; TEMP 36.9; O2SAT 97
[2025-08-29] MEDS: guaiFENesin 200 MG/10 ML 10 ML LIQUID PO (20:08)
[2025-08-29 20:50] LABS: Glucose, Whole Blood 182 mg/dL (60-115)
[2025-08-29] MEDS: Insulin Glargine,Hum.rec.anlog 100 UNIT/ML 10 ML VIAL 40 UNIT SUBCUT (21:00)
--- NOTE | 2025-08-30 | ECG_ITS ---
Test Reason : chest pain Blood Pressure : */* mmHG Vent. Rate : 85 BPM Atrial Rate : 85 BPM P-R Int : 208 ms QRS Dur : 154 ms QT Int : 384 ms P-R-T Axes : 45 -62 56 degrees QTcB Int : 456 ms Normal sinus rhythm Left axis deviation Right bundle branch block Abnormal ECG When compared with ECG of 12-Aug-2025 13:51, No significant change was found Referred By: Hamilton Stephens Electronically Signed By: Gurmeet Larsen
[2025-08-30 04:00] VITALS: BP 108/53; PULSE 70; TEMP 36.4; O2SAT 95
[2025-08-30 07:33] VITALS: BP 119/56; PULSE 66; RESP 16; TEMP 36.4; O2SAT 93
[2025-08-30 07:43] LABS: Glucose, Whole Blood 143 mg/dL (60-115)
[2025-08-30] MEDS: Insulin Glargine,Hum.rec.anlog 100 UNIT/ML 10 ML VIAL 15 UNIT SUBCUT (08:21)
[2025-08-30] MEDS: Metoprolol Succinate ER 50 MG TAB.ER.24H PO (08:21)
[2025-08-30] MEDS: Ferrous Sulfate 324 MG TABLET.DR PO (08:21)
[2025-08-30] MEDS: guaiFENesin DM 600/30 1 TAB TAB.ER.12H PO ×2 (08:21→20:31)
[2025-08-30 11:20] LABS: Glucose, Whole Blood 170 mg/dL (60-115)
--- NOTE | 2025-08-30 11:59 | HO.PM.IMPN ---
Subjective Subjective Date of Service: 08/30/25 Interval History: Patient seen examined at bedside this morning, patient stated he is feeling well, awaiting to be discharged to longterm [facility] [place] [facility]. Review of Systems Review of Systems: Yes all other systems are reviewed and are negative Physical Exam Exam: Exam: General: AxOx2, No acute distress Head: AT/NC ENT: Moist mucous membranes Neck: supple CVS; RRR, S1 S2 normal Lungs: Clear bilateral breath sounds, no wheezes or crackles Abd: Soft non tender, non distended Ext: No edema and no calf tenderness MSK: moving all 4 limbs Skin: No cyanosis or edema Psych: Cooperative with exam Neurology: no focal deficit Vital Signs: Vital Signs: Last Vital Signs Temp 97.5 F 08/30/25 07:33 Pulse 66 08/30/25 07:33 Resp 16 08/30/25 07:33 BP 119/56 L 08/30/25 07:33 Pulse Ox 93 08/30/25 07:33 O2 Del Method Room Air 08/30/25 07:33 O2 Flow Rate 2 08/14/25 07:29 BMI result Body Mass Index 40.7 Objective Data Active Medications Acetaminophen (Acetaminophen 325 Mg Tablet) 650 mg PO Q6H PRN PRN Reason: Pain, Moderate(Pain Scale 4-6) Last Admin: 08/29/25 20:07 Dose: 650 mg Documented By: MICHELE Albuterol/Ipratropium (Albuterol/Iprat 2.5/0.5mg 3 Ml Ampul.Neb) 3 ml INHALE Q4H PRN PRN Reason: Shortness of Breath/Wheezing Last Admin: 08/13/25 23:14 Dose: 3 ml Documented By: JOSE Ascorbic Acid (Ascorbic Acid 500 Mg Tablet) 500 mg PO DAILY [facility] Last Admin: 08/30/25 08:21 Dose: 500 mg Documented By: WAYNE Aspirin (Aspirin 81 Mg Tab.Chew) 81 mg PO DAILY [facility] Last Admin: 08/30/25 08:21 Dose: 81 mg Documented By: WAYNE Atorvastatin Calcium (Atorvastatin Calcium 40 Mg Tablet) 40 mg PO BEDTIME [facility] Last Admin: 08/29/25 20:07 Dose: 40 mg Documented By: MICHELE Benzocaine (Throat Lozenge, Medicated Lozenge) 1 lozenge MUCOUS MEM Q2H PRN PRN Reason: Sore Throat Calcium Carbonate (Calcium Carbonate 750 Mg Tab.Chew) 750 mg PO Q4H PRN PRN Reason: Heartburn Last Admin: 08/14/25 18:43 Dose: 750 mg Documented By: GIN Cyanocobalamin (Cyanocobalamin (Vitamin B-12) 1,000 Mcg Tablet) 1,000 mcg PO DAILY [facility] Last Admin: 08/30/25 08:21 Dose: 1,000 mcg Documented By: WAYNE Dextrose (Dextrose 50 % 25 Gm/50 Ml Syringe) 25 gm IVPUSH Q15M PRN; Protocol PRN Reason: per Hypoglycemia Standing Ord. Docusate Sodium (Docusate Sodium 100 Mg Capsule) 100 mg PO BID [facility] Last Admin: 08/30/25 08:21 Dose: 100 mg Documented By: WAYNE Empagliflozin (Empagliflozin 10 Mg Tablet) 10 mg PO DAILY [facility] Last Admin: 08/30/25 08:21 Dose: 10 mg Documented By: WAYNE Enoxaparin Sodium (Enoxaparin Sodium 40 Mg/0.4 Ml Syringe) 40 mg SUBCUT Q24H [facility] Last Admin: 08/29/25 14:58 Dose: 40 mg Documented By: DOBROKarl Ergocalciferol (Ergocalciferol (Vitamin D2) 1,250 Mcg Capsule) 1,250 mcg PO Fr@0900 [facility] Last Admin: 08/26/25 08:04 Dose: 1,250 mcg Documented By: AAKASH Ferrous Sulfate (Ferrous Sulfate 324 Mg Tablet.) 324 mg PO DAILY [facility] Last Admin: 08/30/25 08:21 Dose: 324 mg Documented By: WAYNE Fluticasone Propionate (Fluticasone Propionate Nasal 16 Gm [place]) 1 spray NOSTRIL-B DAILY [facility] Last Admin: 08/30/25 08:30 Dose: Not Given Documented By: WAYNE Non-Admin Reason: Patient Refused Furosemide (Furosemide 20 Mg Tablet) 20 mg PO DAILY [facility]; Protocol Last Admin: 08/30/25 08:21 Dose: 20 mg Documented By: WAYNE Gabapentin (Gabapentin 600 Mg Tablet) 600 mg PO TID [facility] Last Admin: 08/30/25 08:21 Dose: 600 mg Documented By: WAYNE Glucose (Glucose Gel 15 Gm Gel..Gram.) 15 gm PO Q15M PRN; Protocol PRN Reason: per Hypoglycemia Standing Ord. Guaifenesin (Guaifenesin 200 Mg/10 Ml 10 Ml Liquid) 10 ml PO Q4H PRN PRN Reason: Cough Last Admin: 08/29/25 20:08 Dose: 10 ml Documented By: MICHELE Guaifenesin/Dextromethorphan (Guaifenesin Dm 600/30 1 Tab Tab.Er.12h) 1 tab PO BID [facility] Stop: 08/31/25 10:44 Last Admin: 08/30/25 08:21 Dose: 1 tab Documented By: WAYNE Insulin Glargine (Insulin Glargine,Hum.Rec.Anlog 100 Unit/Ml 10 Ml Vial) 15 unit SUBCUT DAILY [facility] Last Admin: 08/30/25 08:21 Dose: 15 unit Documented By: WAYNE Insulin Glargine (Insulin Glargine,Hum.Rec.Anlog 100 Unit/Ml 10 Ml Vial) 40 unit SUBCUT BEDTIME [facility] Last Admin: 08/29/25 21:00 Dose: 40 unit Documented By: MICHELE Insulin Human Lispro (Insulin Lispro 100 Unit/Ml 3 Ml Vial) 0 unit SUBCUT QIDACHS [facility]; Protocol Last Admin: 08/30/25 11:31 Dose: 2 unit Documented By: WAYNE Lidocaine (Lidocaine 4 % Patch Adh..Patch) 1 patch TRANSDERMA DAILY PRN; Protocol PRN Reason: R flank pain Melatonin (Melatonin 3 Mg Tablet) 6 mg PO BEDTIME [facility] Last Admin: 08/29/25 20:04 Dose: 6 mg Documented By: MICHELE Metoprolol Succinate (Metoprolol Succinate Er 50 Mg Tab.Er.24h) 50 mg PO DAILY [facility]; Protocol Last Admin: 08/30/25 08:21 Dose: 50 mg Documented By: WAYNE Montelukast Sodium (Montelukast Sodium 10 Mg Tablet) 10 mg PO BEDTIME [facility] Last Admin: 08/29/25 20:07 Dose: 10 mg Documented By: MICHELE Omeprazole (Omeprazole 20 Mg [place].) 20 mg PO DAILY@0800 [facility] Last Admin: 08/30/25 08:21 Dose: 20 mg Documented By: WAYNE Ondansetron HCl (Ondansetron Hcl 4 Mg/2 Ml Vial) 4 mg IVPUSH Q8H PRN PRN Reason: Nausea and Vomiting Polyethylene Glycol (Polyethylene Glycol 3350 17 Gm Powd.Pack) 17 gm PO BID [facility] Last Admin: 08/30/25 08:27 Dose: Not Given Documented By: WAYNE Non-Admin Reason: Patient Refused Risperidone (Risperidone 1 Mg Tablet) 1 mg PO BID [facility] Last Admin: 08/30/25 08:29 Dose: 1 mg Documented By: WAYNE Senna (Sennosides 8.6 Mg Tablet) 8.6 mg PO BEDTIME [facility] Last Admin: 08/29/25 20:05 Dose: 8.6 mg Documented By: MICHELE Simethicone (Simethicone 80 Mg Tab.Chew) 80 mg PO QIDWMHS PRN PRN Reason: Gas Last Admin: 08/14/25 21:01 Dose: 80 mg Documented By: JUAN Sodium Chloride (0.9 % Sodium Chloride Flush 3 Ml Syringe) 3 ml IVFLUSH QSHIFT [facility] Last Admin: 08/30/25 08:23 Dose: Not Given Documented By: WAYNE Non-Admin Reason: No Access Sodium Chloride (Sodium Chloride 0.65 % Nasal 44 Ml Sprbtl) 1 spray NOSTRIL-B Q1H PRN PRN Reason: Nasal Congestion Tamsulosin HCl (Tamsulosin Hcl 0.4 Mg Capsule) 0.4 mg PO BEDTIME [facility] Last Admin: 08/29/25 20:06 Dose: 0.4 mg Documented By: MICHELE Thiamine HCl (Thiamine Hcl 100 Mg Tablet) 100 mg PO DAILY [facility] Last Admin: 08/30/25 08:29 Dose: 100 mg Documented By: WAYNE Tizanidine HCl (Tizanidine Hcl 4 Mg Tablet) 2 mg PO BEDTIME [facility] Last Admin: 08/29/25 20:05 Dose: 2 mg Documented By: MICHELE Labs 08/29/25 05:23 08/29/25 05:23 Labs: Laboratory Results - last 24 hr 08/29/25 08/29/25 08/30/25 16:09 20:46 07:38 POC Glucose 188 H 182 H 143 H 08/30/25 11:16 POC Glucose 170 H Assessment and Plan (1) Stage 3b chronic kidney disease (CKD): Status: Acute (2) Depression: Status: Acute Plan 75 yo M initially admitted to [facility] 07/15/25 for MDD with self-harming behavior, developed hypoxia and transferred to hospitalist service 08/12 for treatment of multifocal PNA, COPD exacerbation, MAMADOU, hyperkalemia; does not need IPLOC but unable to take care of self, awaiting SNF placement in [place] Bronchitis, improving -chest x ray with right lung base airspase disease, worsened from prior. patient completed multiple courses of abs doxycycline + ceftriaxone 08/14-08/17, levofloxacin + doxycycline 08/17-08/19 amd recent prednisone taper -Chest CT reviewed, with findings suggestive on bronchitis -respiratory panel negative -continue diane nase and mucinex CAD -no acute issues at this time -continue home meds CHF -stable and well compensated -adjust therapies as indicated Diabetes type 2, chronic, controlled -Continue Insulin glargine -lispro correctional scale -adjust as indicated Disposition: waiting to be D/C to [place] Total time managing care of this patient today: 35 minutes. Quality Stroke Does the patient have a stroke diagnosis?: No VTE Prior VTE?: No VTE Risk Level:: Medical - moderate - high VTE Device Contraindication: Treatment Not Indicated VTE Drug Contraindication: N/A - Med Ordered
--- NOTE | 2025-08-30 12:48 | MHC.SL.SWA ---
Speech Pathologist Impression: WFL Risk of Aspiration Due to: Dysphasia Diet Status: Recommend CONTINUE with REGULAR solids, THIN liquids. Liquid Consistency and Strategies for Safe Swallow: Liquid Intake Recommendation: Thin Liquid Intake Strategies: Small Sips Solid Food Consistency: Dietary Recommendations: Regular Additional Modifications to Solid Foods: DRIVER'S LICENSE EXAMINER advised patient on aspiration precautions and recommended strategies for clearance: take small bites, chew food well, alternate with sips of liquid, remain upright during PO intake and for at least 30 minutes afterwards. Oral Medication Intake: Whole with Liquid Please contact the pharmacy regarding appropriate crushable or liquid drug formulations that are available whenever modified delivery is recommended. Compensatory Strategies and Precautions to be Taken for Safe Swallow: Sitting Upright (90 deg) Double Swallow Small Bites and Sips Alternate Liquids/Solids Rate of Ingestion Change Avoid Specific Foods Supervision While Eating and Drinking for Safe Swallow: Intermittent Supervision Foods to Avoid: Hard/difficult to chew solids; patient well aware of mastication abilities. Swallowing Recommended Treatments: Compens. Strategy Educat. Recommendation for Speech: Discharge Comment: Patient seen for follow-up. Patient met in room and seen at lunch. Session translated with assistance of medical animal sticker. Patient endorsing odynophagia this date. Reports that this is baseline and has been going on for years; hot beverage tend to reduce. Patient seen with lunch of regular solids, thin liquids. Patient eating green beans; timely mastication, adequate cohesion and clearance. Patient reports no difficulties with swallowing or mastication. Patient knows personal mastication abilities and elects softer items from menu. Patient with no s/sx of penetration/aspiration. After a few bites of lunch, patient reporting no odynophagia. Patient tolerating current diet; recommend CONTINUE with REGULAR solids, THIN liquids. Patient with no difficulties seen across multiple sessions. DRIVER'S LICENSE EXAMINER services no longer warranted at this level. Patient in agreement with discharge from DRIVER'S LICENSE EXAMINER services. MD and RN notified of POC via secure chat. Frequency/Duration: Date Range for Service Req: Timeline to reassess: Bicycle Repairman Clinican/Clinical Fellow: No Supervisory Statement: I have reviewed and agree with the student/clinical fellow's documentation: No Speech Language Pathologist: Makenzie Griffith M.A., [facility]-DRIVER'S LICENSE EXAMINER
--- NOTE | 2025-08-30 13:01 | MHC.CM.PN ---
Addendum entered by Abi Albrecht RN 08/30/25 13:51: [facility] has denied. Referral expanded. Granddaughter updated and is considering bringing to [place]. She will call CM with decision. Addendum entered by Abi Albrecht RN 08/30/25 13:43: Spoke with Jennifer in admissions - LEANDRO still has not been reviewed. Expect answer this afternoon. Original Note: Still awaiting answer from [facility]. Spoke w/ Bessie in admissions, she is unable to tell if LEANDRO was reviewed yet. She will f/u w/ her director and this CM. Attempted to call granddaughter Sudhir x2 to update. No answer, VM box full.
[2025-08-30 15:53] VITALS: BP 127/56; PULSE 72; RESP 19; TEMP 36; O2SAT 96
[2025-08-30 16:12] LABS: Glucose, Whole Blood 176 mg/dL (60-115)
[2025-08-30] MEDS: oxyCODONE HCl Immed Release 5 MG TABLET PO (18:43)
[2025-08-30] MEDS: 0.9 % Sodium Chloride Flush 3 ML SYRINGE IVFLUSH (19:28)
[2025-08-30] MEDS: Lidocaine 4 % Patch ADH..PATCH 2 PATCH TRANSDERMA (19:29)
[2025-08-30 20:00] VITALS: BP 125/56; PULSE 71; RESP 19; TEMP 36.6; O2SAT 95
[2025-08-30 20:20] LABS: Glucose, Whole Blood 190 mg/dL (60-115)
[2025-08-30] MEDS: Insulin Glargine,Hum.rec.anlog 100 UNIT/ML 10 ML VIAL 40 UNIT SUBCUT (20:30)
[2025-08-31 03:31] VITALS: BP 116/58; PULSE 73; RESP 18; TEMP 36.4; O2SAT 93
[2025-08-31 07:42] LABS: Glucose, Whole Blood 94 mg/dL (60-115)
[2025-08-31 08:00] VITALS: BP 130/66; PULSE 66; RESP 18; TEMP 36.7; O2SAT 95
[2025-08-31] MEDS: Metoprolol Succinate ER 50 MG TAB.ER.24H PO (08:52)
[2025-08-31] MEDS: Ferrous Sulfate 324 MG TABLET.DR PO (08:52)
[2025-08-31] MEDS: guaiFENesin DM 600/30 1 TAB TAB.ER.12H PO (08:52)
[2025-08-31] MEDS: Insulin Glargine,Hum.rec.anlog 100 UNIT/ML 10 ML VIAL 15 UNIT SUBCUT (08:52)
[2025-08-31] MEDS: Lidocaine 4 % Patch ADH..PATCH 2 PATCH TRANSDERMA (08:52)
[2025-08-31] MEDS: 0.9 % Sodium Chloride Flush 3 ML SYRINGE IVFLUSH ×3 (08:53→21:41)
--- NOTE | 2025-08-31 10:41 | MHC.CM.PN ---
CM placed f/u call to granddaughter. She is awaiting call from patient's PCP in [place] to discuss options, expecting to hear back this afternoon. She reports if PCP has no further suggestions, she plans to turkey picker patient from the hospital on Friday and bring him to [place], as she is worried about the effect of this extended hosp stay on patient's mental health. CM will continue to follow.
[2025-08-31 11:04] LABS: Glucose, Whole Blood 165 mg/dL (60-115)
[2025-08-31 15:57] VITALS: BP 136/58; PULSE 76; RESP 19; TEMP 36; O2SAT 97
[2025-08-31 16:19] LABS: Glucose, Whole Blood 133 mg/dL (60-115)
--- NOTE | 2025-08-31 16:26 | HO.PM.IMPN ---
Subjective Subjective Date of Service: 09/01/25 Interval History: no new overnight events Review of Systems Review of Systems: Yes all other systems are reviewed and are negative Physical Exam Exam: Exam: Appearance: Alert.? Oriented X2.? cvs: [id number], [id number] . res: clear to auscultation. abd: no rebound or guarding ,nt, bs present. ext pulses present , no cyanosis . neuro: axo3 , nonfocal. Vital Signs: Vital Signs: Last Vital Signs Temp 96.8 F 08/31/25 15:57 Pulse 76 08/31/25 15:57 Resp 19 08/31/25 15:57 BP 136/58 L 08/31/25 15:57 Pulse Ox 97 08/31/25 15:57 O2 Del Method Room Air 08/31/25 15:57 O2 Flow Rate 2 08/14/25 07:29 BMI result Body Mass Index 40.7 Objective Data Active Medications Acetaminophen (Acetaminophen 325 Mg Tablet) 650 mg PO Q6H PRN PRN Reason: Pain, Moderate(Pain Scale 4-6) Last Admin: 08/30/25 17:50 Dose: 650 mg Documented By: WAYNE Albuterol/Ipratropium (Albuterol/Iprat 2.5/0.5mg 3 Ml Ampul.Neb) 3 ml INHALE Q4H PRN PRN Reason: Shortness of Breath/Wheezing Last Admin: 08/13/25 23:14 Dose: 3 ml Documented By: JOSE Ascorbic Acid (Ascorbic Acid 500 Mg Tablet) 500 mg PO DAILY [facility] Last Admin: 08/31/25 08:51 Dose: 500 mg Documented By: RAMON Aspirin (Aspirin 81 Mg Tab.Chew) 81 mg PO DAILY [facility] Last Admin: 08/31/25 08:51 Dose: 81 mg Documented By: RAMON Atorvastatin Calcium (Atorvastatin Calcium 40 Mg Tablet) 40 mg PO BEDTIME [facility] Last Admin: 08/30/25 20:31 Dose: 40 mg Documented By: MICHELE Benzocaine (Throat Lozenge, Medicated Lozenge) 1 lozenge MUCOUS MEM Q2H PRN PRN Reason: Sore Throat Calcium Carbonate (Calcium Carbonate 750 Mg Tab.Chew) 750 mg PO Q4H PRN PRN Reason: Heartburn Last Admin: 08/14/25 18:43 Dose: 750 mg Documented By: GIN Cyanocobalamin (Cyanocobalamin (Vitamin B-12) 1,000 Mcg Tablet) 1,000 mcg PO DAILY [facility] Last Admin: 08/31/25 08:52 Dose: 1,000 mcg Documented By: RAMON Cyclobenzaprine HCl (Cyclobenzaprine Hcl 5 Mg Tablet) 5 mg PO TID [facility] Last Admin: 08/31/25 14:35 Dose: 5 mg Documented By: RAMON Dextrose (Dextrose 50 % 25 Gm/50 Ml Syringe) 25 gm IVPUSH Q15M PRN; Protocol PRN Reason: per Hypoglycemia Standing Ord. Docusate Sodium (Docusate Sodium 100 Mg Capsule) 100 mg PO BID [facility] Last Admin: 08/31/25 08:51 Dose: 100 mg Documented By: RAMON Empagliflozin (Empagliflozin 10 Mg Tablet) 10 mg PO DAILY [facility] Last Admin: 08/31/25 08:51 Dose: 10 mg Documented By: RAMON Enoxaparin Sodium (Enoxaparin Sodium 40 Mg/0.4 Ml Syringe) 40 mg SUBCUT Q24H [facility] Last Admin: 08/31/25 14:35 Dose: 40 mg Documented By: RAMON Ergocalciferol (Ergocalciferol (Vitamin D2) 1,250 Mcg Capsule) 1,250 mcg PO Fr@0900 [facility] Last Admin: 08/26/25 08:04 Dose: 1,250 mcg Documented By: AAKASH Ferrous Sulfate (Ferrous Sulfate 324 Mg Tablet.Dr) 324 mg PO DAILY [facility] Last Admin: 08/31/25 08:52 Dose: 324 mg Documented By: RAMON Fluticasone Propionate (Fluticasone Propionate Nasal 16 Gm [place]) 1 spray NOSTRIL-B DAILY [facility] Last Admin: 08/31/25 11:07 Dose: Not Given Documented By: RAMON Non-Admin Reason: Patient Refused Furosemide (Furosemide 20 Mg Tablet) 20 mg PO DAILY [facility]; Protocol Last Admin: 08/31/25 08:51 Dose: 20 mg Documented By: RAMON Gabapentin (Gabapentin 600 Mg Tablet) 600 mg PO TID [facility] Last Admin: 08/31/25 14:35 Dose: 600 mg Documented By: RAMON Glucose (Glucose Gel 15 Gm Gel..Gram.) 15 gm PO Q15M PRN; Protocol PRN Reason: per Hypoglycemia Standing Ord. Guaifenesin (Guaifenesin 200 Mg/10 Ml 10 Ml Liquid) 10 ml PO Q4H PRN PRN Reason: Cough Last Admin: 08/29/25 20:08 Dose: 10 ml Documented By: MICHELE Insulin Glargine (Insulin Glargine,Hum.Rec.Anlog 100 Unit/Ml 10 Ml Vial) 15 unit SUBCUT DAILY [facility] Last Admin: 08/31/25 08:52 Dose: 15 unit Documented By: RAMON Insulin Glargine (Insulin Glargine,Hum.Rec.Anlog 100 Unit/Ml 10 Ml Vial) 40 unit SUBCUT BEDTIME [facility] Last Admin: 08/30/25 20:30 Dose: 40 unit Documented By: MICHELE Insulin Human Lispro (Insulin Lispro 100 Unit/Ml 3 Ml Vial) 0 unit SUBCUT QIDACHS [facility]; Protocol Last Admin: 08/31/25 16:25 Dose: Not Given Documented By: RAMON Non-Admin Reason: No Insulin Coverage Lidocaine (Lidocaine 4 % Patch Adh..Patch) 1 patch TRANSDERMA DAILY PRN; Protocol PRN Reason: R flank pain Lidocaine (Lidocaine 4 % Patch Adh..Patch) 2 patch TRANSDERMA DAILY [facility]; Protocol Last Admin: 08/31/25 08:52 Dose: 2 patch Documented By: RAMON Melatonin (Melatonin 3 Mg Tablet) 6 mg PO BEDTIME [facility] Last Admin: 08/30/25 20:32 Dose: 6 mg Documented By: MICHELE Metoprolol Succinate (Metoprolol Succinate Er 50 Mg Tab.Er.24h) 50 mg PO DAILY [facility]; Protocol Last Admin: 08/31/25 08:52 Dose: 50 mg Documented By: RAMON Montelukast Sodium (Montelukast Sodium 10 Mg Tablet) 10 mg PO BEDTIME [facility] Last Admin: 08/30/25 20:31 Dose: 10 mg Documented By: MICHELE Omeprazole (Omeprazole 20 Mg Capsule.Dr) 20 mg PO DAILY@0800 [facility] Last Admin: 08/31/25 08:51 Dose: 20 mg Documented By: RAMON Ondansetron HCl (Ondansetron Hcl 4 Mg/2 Ml Vial) 4 mg IVPUSH Q8H PRN PRN Reason: Nausea and Vomiting Polyethylene Glycol (Polyethylene Glycol 3350 17 Gm Powd.Pack) 17 gm PO BID [facility] Last Admin: 08/31/25 08:53 Dose: 17 gm Documented By: RAMON Risperidone (Risperidone 1 Mg Tablet) 1 mg PO BID [facility] Last Admin: 08/31/25 08:51 Dose: 1 mg Documented By: RAMON Senna (Sennosides 8.6 Mg Tablet) 8.6 mg PO BEDTIME [facility] Last Admin: 08/30/25 20:32 Dose: 8.6 mg Documented By: MICHELE Simethicone (Simethicone 80 Mg Tab.Chew) 80 mg PO QIDWMHS PRN PRN Reason: Gas Last Admin: 08/14/25 21:01 Dose: 80 mg Documented By: JUAN Sodium Chloride (0.9 % Sodium Chloride Flush 3 Ml Syringe) 3 ml IVFLUSH QSHIFT [facility] Last Admin: 08/31/25 08:53 Dose: 3 ml Documented By: RAMON Sodium Chloride (Sodium Chloride 0.65 % Nasal 44 Ml Sprbtl) 1 spray NOSTRIL-B Q1H PRN PRN Reason: Nasal Congestion Tamsulosin HCl (Tamsulosin Hcl 0.4 Mg Capsule) 0.4 mg PO BEDTIME [facility] Last Admin: 08/30/25 20:31 Dose: 0.4 mg Documented By: MICHELE Thiamine HCl (Thiamine Hcl 100 Mg Tablet) 100 mg PO DAILY [facility] Last Admin: 08/31/25 08:51 Dose: 100 mg Documented By: RAMON Labs 08/29/25 05:23 08/29/25 05:23 Labs: Laboratory Results - last 24 hr 08/30/25 08/31/25 08/31/25 20:15 07:37 10:58 POC Glucose 190 H 94 165 H 08/31/25 16:15 POC Glucose 133 H Assessment and Plan (1) Stage 3b chronic kidney disease (CKD): Status: Acute (2) Depression: Status: Acute Plan 75 yo M initially admitted to [facility] 07/15/25 for MDD with self-harming behavior, developed hypoxia and transferred to hospitalist service 08/12 for treatment of multifocal PNA, COPD exacerbation, MAMADOU, hyperkalemia; does not need IPLOC but unable to take care of self, awaiting SNF placement in [place] Bronchitis, improving chest x ray with right lung base airspase disease, worsened from prior. patient completed multiple courses of abs doxycycline + ceftriaxone 08/14-08/17, levofloxacin + doxycycline 08/17-08/19 amd recent prednisone taper Chest CT reviewed, with findings suggestive on bronchitis respiratory panel negative continue diane nase and mucinex CAD -no acute issues at this time -continue home meds CHF -stable and well compensated -adjust therapies as indicated Diabetes type 2, chronic, controlled -Continue Insulin glargine -lispro correctional scale -adjust as indicated Disposition: waiting to be D/C to [place] Total time managing care of this patient today: 35 minutes. Quality Stroke Does the patient have a stroke diagnosis?: No VTE Prior VTE?: No VTE Risk Level:: Medical - moderate - high VTE Device Contraindication: Treatment Not Indicated VTE Drug Contraindication: N/A - Med Ordered
[2025-08-31 19:28] VITALS: BP 149/90; PULSE 79; RESP 19; TEMP 36.6; O2SAT 98
[2025-08-31 20:36] LABS: Glucose, Whole Blood 141 mg/dL (60-115)
[2025-08-31] MEDS: Insulin Glargine,Hum.rec.anlog 100 UNIT/ML 10 ML VIAL 40 UNIT SUBCUT (21:34)
[2025-09-01 03:20] VITALS: BP 139/61; PULSE 91; RESP 18; TEMP 37.1; O2SAT 92
[2025-09-01 07:29] VITALS: BP 121/52; PULSE 86; RESP 18; TEMP 36.8; O2SAT 94
[2025-09-01 07:35] LABS: Glucose, Whole Blood 67 mg/dL (60-115)
[2025-09-01] MEDS: Metoprolol Succinate ER 50 MG TAB.ER.24H PO (07:49)
[2025-09-01] MEDS: Ferrous Sulfate 324 MG TABLET.DR PO (07:51)
[2025-09-01] MEDS: 0.9 % Sodium Chloride Flush 3 ML SYRINGE IVFLUSH ×3 (07:56→21:46)
[2025-09-01 08:18] LABS: Glucose, Whole Blood 127 mg/dL (60-115)
[2025-09-01 11:11] LABS: Glucose, Whole Blood 110 mg/dL (60-115)
--- NOTE | 2025-09-01 14:17 | HO.PM.IMPN ---
Subjective Subjective Date of Service: 09/01/25 Interval History: no new overnight events Review of Systems boderline fs , asymptomatic Review of Systems: Yes all other systems are reviewed and are negative Physical Exam Exam: Exam: Appearance: Alert.? Oriented X2.? cvs: [id number], [id number] . res: clear to auscultation. abd: no rebound or guarding ,nt, bs present. ext pulses present , no cyanosis . neuro: axo3 , nonfocal. Vital Signs: Vital Signs: Last Vital Signs Temp 98.2 F 09/01/25 07:29 Pulse 86 09/01/25 07:29 Resp 18 09/01/25 07:29 BP 121/52 L 09/01/25 07:29 Pulse Ox 94 09/01/25 07:29 O2 Del Method Room Air 09/01/25 07:29 O2 Flow Rate 2 08/14/25 07:29 BMI result Body Mass Index 40.7 Objective Data Active Medications Acetaminophen (Acetaminophen 325 Mg Tablet) 650 mg PO Q6H PRN PRN Reason: Pain, Moderate(Pain Scale 4-6) Last Admin: 08/30/25 17:50 Dose: 650 mg Documented By: WAYNE Ascorbic Acid (Ascorbic Acid 500 Mg Tablet) 500 mg PO DAILY [facility] Last Admin: 09/01/25 07:51 Dose: 500 mg Documented By: MYNOR Aspirin (Aspirin 81 Mg Tab.Chew) 81 mg PO DAILY [facility] Last Admin: 09/01/25 07:49 Dose: 81 mg Documented By: MYNOR Atorvastatin Calcium (Atorvastatin Calcium 40 Mg Tablet) 40 mg PO BEDTIME [facility] Last Admin: 08/31/25 21:35 Dose: 40 mg Documented By: NAVEEN Benzocaine (Throat Lozenge, Medicated Lozenge) 1 lozenge MUCOUS MEM Q2H PRN PRN Reason: Sore Throat Calcium Carbonate (Calcium Carbonate 750 Mg Tab.Chew) 750 mg PO Q4H PRN PRN Reason: Heartburn Last Admin: 08/14/25 18:43 Dose: 750 mg Documented By: GIN Cyanocobalamin (Cyanocobalamin (Vitamin B-12) 1,000 Mcg Tablet) 1,000 mcg PO DAILY [facility] Last Admin: 09/01/25 07:49 Dose: 1,000 mcg Documented By: MYNOR Cyclobenzaprine HCl (Cyclobenzaprine Hcl 5 Mg Tablet) 5 mg PO TID [facility] Last Admin: 09/01/25 07:50 Dose: 5 mg Documented By: MYNOR Dextrose (Dextrose 50 % 25 Gm/50 Ml Syringe) 25 gm IVPUSH Q15M PRN; Protocol PRN Reason: per Hypoglycemia Standing Ord. Docusate Sodium (Docusate Sodium 100 Mg Capsule) 100 mg PO BID [facility] Last Admin: 09/01/25 07:51 Dose: 100 mg Documented By: MYNOR Empagliflozin (Empagliflozin 10 Mg Tablet) 10 mg PO DAILY [facility] Last Admin: 09/01/25 07:51 Dose: 10 mg Documented By: MYNOR Enoxaparin Sodium (Enoxaparin Sodium 40 Mg/0.4 Ml Syringe) 40 mg SUBCUT Q24H [facility] Last Admin: 08/31/25 14:35 Dose: 40 mg Documented By: RAMON Ergocalciferol (Ergocalciferol (Vitamin D2) 1,250 Mcg Capsule) 1,250 mcg PO Fr@0900 [facility] Last Admin: 08/26/25 08:04 Dose: 1,250 mcg Documented By: AAKASH Ferrous Sulfate (Ferrous Sulfate 324 Mg Tablet.Dr) 324 mg PO DAILY [facility] Last Admin: 09/01/25 07:51 Dose: 324 mg Documented By: MYNOR Fluticasone Propionate (Fluticasone Propionate Nasal 16 Gm [place]) 1 spray NOSTRIL-B DAILY [facility] Last Admin: 09/01/25 07:52 Dose: Not Given Documented By: MYNOR Non-Admin Reason: Patient Refused Furosemide (Furosemide 20 Mg Tablet) 20 mg PO DAILY [facility]; Protocol Last Admin: 09/01/25 07:51 Dose: 20 mg Documented By: MYNOR Gabapentin (Gabapentin 600 Mg Tablet) 600 mg PO TID [facility] Last Admin: 09/01/25 07:52 Dose: 600 mg Documented By: MYNOR Glucose (Glucose Gel 15 Gm Gel..Gram.) 15 gm PO Q15M PRN; Protocol PRN Reason: per Hypoglycemia Standing Ord. Guaifenesin (Guaifenesin 200 Mg/10 Ml 10 Ml Liquid) 10 ml PO Q4H PRN PRN Reason: Cough Last Admin: 08/29/25 20:08 Dose: 10 ml Documented By: MICHELE Insulin Glargine (Insulin Glargine,Hum.Rec.Anlog 100 Unit/Ml 10 Ml Vial) 15 unit SUBCUT DAILY [facility] Last Admin: 09/01/25 07:57 Dose: Not Given Documented By: MYNOR Non-Admin Reason: Physician Held Med Insulin Glargine (Insulin Glargine,Hum.Rec.Anlog 100 Unit/Ml 10 Ml Vial) 40 unit SUBCUT BEDTIME [facility] Last Admin: 08/31/25 21:34 Dose: 40 unit Documented By: NAVEEN Insulin Human Lispro (Insulin Lispro 100 Unit/Ml 3 Ml Vial) 0 unit SUBCUT QIDACHS [facility]; Protocol Last Admin: 09/01/25 11:27 Dose: Not Given Documented By: MYNOR Non-Admin Reason: No Insulin Coverage Lidocaine (Lidocaine 4 % Patch Adh..Patch) 1 patch TRANSDERMA DAILY PRN; Protocol PRN Reason: R flank pain Lidocaine (Lidocaine 4 % Patch Adh..Patch) 2 patch TRANSDERMA DAILY [facility]; Protocol Last Admin: 09/01/25 07:57 Dose: Not Given Documented By: MYNOR Non-Admin Reason: Patient Refused Melatonin (Melatonin 3 Mg Tablet) 6 mg PO BEDTIME [facility] Last Admin: 08/31/25 21:35 Dose: 6 mg Documented By: NAVEEN Metoprolol Succinate (Metoprolol Succinate Er 50 Mg Tab.Er.24h) 50 mg PO DAILY [facility]; Protocol Last Admin: 09/01/25 07:49 Dose: 50 mg Documented By: MYNOR Montelukast Sodium (Montelukast Sodium 10 Mg Tablet) 10 mg PO BEDTIME [facility] Last Admin: 08/31/25 21:35 Dose: 10 mg Documented By: NAVEEN Omeprazole (Omeprazole 20 Mg Capsule.) 20 mg PO DAILY@0800 [facility] Last Admin: 09/01/25 07:51 Dose: 20 mg Documented By: MYNOR Ondansetron HCl (Ondansetron Hcl 4 Mg/2 Ml Vial) 4 mg IVPUSH Q8H PRN PRN Reason: Nausea and Vomiting Polyethylene Glycol (Polyethylene Glycol 3350 17 Gm Powd.Pack) 17 gm PO BID [facility] Last Admin: 09/01/25 07:49 Dose: 17 gm Documented By: MYNOR Risperidone (Risperidone 1 Mg Tablet) 1 mg PO BID [facility] Last Admin: 09/01/25 07:51 Dose: 1 mg Documented By: MYNOR Senna (Sennosides 8.6 Mg Tablet) 8.6 mg PO BEDTIME [facility] Last Admin: 08/31/25 21:35 Dose: 8.6 mg Documented By: NAVEEN Simethicone (Simethicone 80 Mg Tab.Chew) 80 mg PO QIDWMHS PRN PRN Reason: Gas Last Admin: 08/14/25 21:01 Dose: 80 mg Documented By: JUAN Sodium Chloride (0.9 % Sodium Chloride Flush 3 Ml Syringe) 3 ml IVFLUSH QSHIFT [facility] Last Admin: 09/01/25 07:56 Dose: 3 ml Documented By: MYNOR Sodium Chloride (Sodium Chloride 0.65 % Nasal 44 Ml Sprbtl) 1 spray NOSTRIL-B Q1H PRN PRN Reason: Nasal Congestion Tamsulosin HCl (Tamsulosin Hcl 0.4 Mg Capsule) 0.4 mg PO BEDTIME [facility] Last Admin: 08/31/25 21:35 Dose: 0.4 mg Documented By: NAVEEN Thiamine HCl (Thiamine Hcl 100 Mg Tablet) 100 mg PO DAILY [facility] Last Admin: 09/01/25 07:51 Dose: 100 mg Documented By: MYNOR Labs 08/29/25 05:23 08/29/25 05:23 Labs: Laboratory Results - last 24 hr 08/31/25 08/31/25 09/01/25 16:15 20:30 07:32 POC Glucose 133 H 141 H 67 09/01/25 09/01/25 08:14 11:04 POC Glucose 127 H 110 Assessment and Plan (1) Stage 3b chronic kidney disease (CKD): Status: Acute (2) Depression: Status: Acute Plan 75 yo M initially admitted to [facility] 07/15/25 for MDD with self-harming behavior, developed hypoxia and transferred to hospitalist service 08/12 for treatment of multifocal PNA, COPD exacerbation, MAMADOU, hyperkalemia; does not need IPLOC but unable to take care of self, awaiting SNF placement in [place] Bronchitis, improving chest x ray with right lung base airspase disease, worsened from prior. patient completed multiple courses of abs doxycycline + ceftriaxone 08/14-08/17, levofloxacin + doxycycline 08/17-08/19 amd recent prednisone taper Chest CT reviewed, with findings suggestive on bronchitis respiratory panel negative continue diane nase and mucinex CAD -no acute issues at this time -continue home meds CHF -stable and well compensated -adjust therapies as indicated Diabetes type 2, chronic, controlled bodelrine fs improcing with po carbs hold lantus -lispro correctional scale -adjust as indicated Disposition: waiting to be D/C to [place] Total time managing care of this patient today: 35 minutes. Quality Stroke Does the patient have a stroke diagnosis?: No VTE Prior VTE?: No VTE Risk Level:: Medical - moderate - high VTE Device Contraindication: Treatment Not Indicated VTE Drug Contraindication: N/A - Med Ordered
[2025-09-01 15:04] VITALS: BP 110/53; PULSE 77; RESP 18; TEMP 36.7; O2SAT 92
[2025-09-01 16:29] LABS: Glucose, Whole Blood 141 mg/dL (60-115)
[2025-09-01 19:14] VITALS: BP 134/64; PULSE 84; RESP 18; TEMP 36.4; O2SAT 94
[2025-09-01 19:59] LABS: Glucose, Whole Blood 197 mg/dL (60-115)
[2025-09-02 03:24] VITALS: BP 117/58; PULSE 78; RESP 18; TEMP 36.2; O2SAT 90
[2025-09-02 07:43] VITALS: BP 132/63; PULSE 70; RESP 18; TEMP 36.1; O2SAT 92
--- NOTE | 2025-09-02 08:00 | HO.PM.IMPN ---
Subjective Subjective Date of Service: 09/02/25 Interval History: dm Review of Systems encouraged for po intake and hydration Review of Systems: Yes all other systems are reviewed and are negative Physical Exam Exam: Exam: Appearance: Alert.? Oriented X2.? cvs: [id number], [id number] . res: clear to auscultation. abd: no rebound or guarding ,nt, bs present. ext pulses present , no cyanosis . neuro: axo3 , nonfocal. Vital Signs: Vital Signs: Last Vital Signs Temp 97.0 F 09/02/25 07:43 Pulse 70 09/02/25 07:43 Resp 18 09/02/25 07:43 BP 132/63 09/02/25 07:43 Pulse Ox 92 09/02/25 07:43 O2 Del Method Room Air 09/02/25 07:43 O2 Flow Rate 2 08/14/25 07:29 BMI result Body Mass Index 40.7 Objective Data Active Medications Acetaminophen (Acetaminophen 325 Mg Tablet) 650 mg PO Q6H PRN PRN Reason: Pain, Moderate(Pain Scale 4-6) Last Admin: 09/02/25 02:59 Dose: 650 mg Documented By: JH Ascorbic Acid (Ascorbic Acid 500 Mg Tablet) 500 mg PO DAILY [facility] Last Admin: 09/01/25 07:51 Dose: 500 mg Documented By: MYNOR Aspirin (Aspirin 81 Mg Tab.Chew) 81 mg PO DAILY [facility] Last Admin: 09/01/25 07:49 Dose: 81 mg Documented By: MYNOR Atorvastatin Calcium (Atorvastatin Calcium 40 Mg Tablet) 40 mg PO BEDTIME [facility] Last Admin: 09/01/25 21:45 Dose: 40 mg Documented By: JH Benzocaine (Throat Lozenge, Medicated Lozenge) 1 lozenge MUCOUS MEM Q2H PRN PRN Reason: Sore Throat Calcium Carbonate (Calcium Carbonate 750 Mg Tab.Chew) 750 mg PO Q4H PRN PRN Reason: Heartburn Last Admin: 08/14/25 18:43 Dose: 750 mg Documented By: GIN Cyanocobalamin (Cyanocobalamin (Vitamin B-12) 1,000 Mcg Tablet) 1,000 mcg PO DAILY [facility] Last Admin: 09/01/25 07:49 Dose: 1,000 mcg Documented By: MYNOR Cyclobenzaprine HCl (Cyclobenzaprine Hcl 5 Mg Tablet) 5 mg PO TID [facility] Last Admin: 09/01/25 21:45 Dose: 5 mg Documented By: JH Dextrose (Dextrose 50 % 25 Gm/50 Ml Syringe) 25 gm IVPUSH Q15M PRN; Protocol PRN Reason: per Hypoglycemia Standing Ord. Docusate Sodium (Docusate Sodium 100 Mg Capsule) 100 mg PO BID [facility] Last Admin: 09/01/25 21:48 Dose: 100 mg Documented By: JH Empagliflozin (Empagliflozin 10 Mg Tablet) 10 mg PO DAILY [facility] Last Admin: 09/01/25 07:51 Dose: 10 mg Documented By: MYNOR Enoxaparin Sodium (Enoxaparin Sodium 40 Mg/0.4 Ml Syringe) 40 mg SUBCUT Q24H [facility] Last Admin: 09/01/25 14:59 Dose: 40 mg Documented By: OSCAR Ergocalciferol (Ergocalciferol (Vitamin D2) 1,250 Mcg Capsule) 1,250 mcg PO Fr@0900 [facility] Last Admin: 08/26/25 08:04 Dose: 1,250 mcg Documented By: AAKASH Ferrous Sulfate (Ferrous Sulfate 324 Mg Tablet.Dr) 324 mg PO DAILY [facility] Last Admin: 09/01/25 07:51 Dose: 324 mg Documented By: MYNOR Fluticasone Propionate (Fluticasone Propionate Nasal 16 Gm [place]) 1 spray NOSTRIL-B DAILY [facility] Last Admin: 09/01/25 07:52 Dose: Not Given Documented By: MYNOR Non-Admin Reason: Patient Refused Furosemide (Furosemide 20 Mg Tablet) 20 mg PO DAILY [facility]; Protocol On Hold: 09/02/25 07:59 Last Admin: 09/01/25 07:51 Dose: 20 mg Documented By: MYNOR Gabapentin (Gabapentin 600 Mg Tablet) 600 mg PO TID [facility] Last Admin: 09/01/25 21:45 Dose: 600 mg Documented By: JH Glucose (Glucose Gel 15 Gm Gel..Gram.) 15 gm PO Q15M PRN; Protocol PRN Reason: per Hypoglycemia Standing Ord. Guaifenesin (Guaifenesin 200 Mg/10 Ml 10 Ml Liquid) 10 ml PO Q4H PRN PRN Reason: Cough Last Admin: 08/29/25 20:08 Dose: 10 ml Documented By: MICHELE Insulin Glargine (Insulin Glargine,Hum.Rec.Anlog 100 Unit/Ml 10 Ml Vial) 15 unit SUBCUT DAILY [facility] On Hold: 09/01/25 14:18 Last Admin: 09/01/25 07:57 Dose: Not Given Documented By: MYNOR Non-Admin Reason: Physician Held Med Insulin Glargine (Insulin Glargine,Hum.Rec.Anlog 100 Unit/Ml 10 Ml Vial) 40 unit SUBCUT BEDTIME [facility] On Hold: 09/01/25 14:20 Last Admin: 08/31/25 21:34 Dose: 40 unit Documented By: NAVEEN Insulin Human Lispro (Insulin Lispro 100 Unit/Ml 3 Ml Vial) 0 unit SUBCUT QIDACHS [facility]; Protocol Last Admin: 09/01/25 21:45 Dose: 2 unit Documented By: JH Lidocaine (Lidocaine 4 % Patch Adh..Patch) 1 patch TRANSDERMA DAILY PRN; Protocol PRN Reason: R flank pain Lidocaine (Lidocaine 4 % Patch Adh..Patch) 2 patch TRANSDERMA DAILY [facility]; Protocol Last Admin: 09/01/25 07:57 Dose: Not Given Documented By: MYNOR Non-Admin Reason: Patient Refused Melatonin (Melatonin 3 Mg Tablet) 6 mg PO BEDTIME [facility] Last Admin: 09/01/25 21:45 Dose: 6 mg Documented By: JH Metoprolol Succinate (Metoprolol Succinate Er 50 Mg Tab.Er.24h) 50 mg PO DAILY [facility]; Protocol Last Admin: 09/01/25 07:49 Dose: 50 mg Documented By: MYNOR Montelukast Sodium (Montelukast Sodium 10 Mg Tablet) 10 mg PO BEDTIME [facility] Last Admin: 09/01/25 21:45 Dose: 10 mg Documented By: JH Omeprazole (Omeprazole 20 Mg Capsule.) 20 mg PO DAILY@0800 [facility] Last Admin: 09/01/25 07:51 Dose: 20 mg Documented By: MYNOR Ondansetron HCl (Ondansetron Hcl 4 Mg/2 Ml Vial) 4 mg IVPUSH Q8H PRN PRN Reason: Nausea and Vomiting Polyethylene Glycol (Polyethylene Glycol 3350 17 Gm Powd.Pack) 17 gm PO BID [facility] Last Admin: 09/01/25 22:00 Dose: Not Given Documented By: JH Non-Admin Reason: Patient Refused Risperidone (Risperidone 1 Mg Tablet) 1 mg PO BID [facility] Last Admin: 09/01/25 21:45 Dose: 1 mg Documented By: JH Senna (Sennosides 8.6 Mg Tablet) 8.6 mg PO BEDTIME [facility] Last Admin: 09/01/25 21:45 Dose: 8.6 mg Documented By: JH Simethicone (Simethicone 80 Mg Tab.Chew) 80 mg PO QIDWMHS PRN PRN Reason: Gas Last Admin: 08/14/25 21:01 Dose: 80 mg Documented By: SOULEYMANELAMStefany Sodium Chloride (0.9 % Sodium Chloride Flush 3 Ml Syringe) 3 ml IVFLUSH QSHIFT [facility] Last Admin: 09/01/25 21:46 Dose: 3 ml Documented By: JH Sodium Chloride (Sodium Chloride 0.65 % Nasal 44 Ml Sprbtl) 1 spray NOSTRIL-B Q1H PRN PRN Reason: Nasal Congestion Tamsulosin HCl (Tamsulosin Hcl 0.4 Mg Capsule) 0.4 mg PO BEDTIME [facility] Last Admin: 09/01/25 21:45 Dose: 0.4 mg Documented By: JH Thiamine HCl (Thiamine Hcl 100 Mg Tablet) 100 mg PO DAILY [facility] Last Admin: 09/01/25 07:51 Dose: 100 mg Documented By: MYNOR Labs 08/29/25 05:23 08/29/25 05:23 Labs: Laboratory Results - last 24 hr 09/01/25 09/01/25 09/01/25 08:14 11:04 16:25 POC Glucose 127 H 110 141 H 09/01/25 19:55 POC Glucose 197 H Assessment and Plan (1) Stage 3b chronic kidney disease (CKD): Status: Acute (2) Depression: Status: Acute Plan 75 yo M initially admitted to [facility] 07/15/25 for MDD with self-harming behavior, developed hypoxia and transferred to hospitalist service 08/12 for treatment of multifocal PNA, COPD exacerbation, MAMADOU, hyperkalemia; does not need IPLOC but unable to take care of self, awaiting SNF placement in [place] Bronchitis, improving chest x ray with right lung base airspase disease, worsened from prior. patient completed multiple courses of abs doxycycline + ceftriaxone 08/14-08/17, levofloxacin + doxycycline 08/17-08/19 amd recent prednisone taper Chest CT reviewed, with findings suggestive on bronchitis respiratory panel negative continue diane nase and mucinex CAD -no acute issues at this time -continue home meds CHF -stable and well compensated, hold lasix for today -adjust therapies as indicated Diabetes type 2, chronic, controlled bodelrine fs improcing with po carbs hold lantus -lispro correctional scale -adjust as indicated Disposition: waiting to be D/C to [place] Total time managing care of this patient today: 35 minutes. Quality Stroke Does the patient have a stroke diagnosis?: No VTE Prior VTE?: No VTE Risk Level:: Medical - moderate - high VTE Device Contraindication: Treatment Not Indicated VTE Drug Contraindication: N/A - Med Ordered
[2025-09-02 08:01] LABS: Glucose, Whole Blood 146 mg/dL (60-115)
[2025-09-02] MEDS: Metoprolol Succinate ER 50 MG TAB.ER.24H PO (08:07)
[2025-09-02] MEDS: Ferrous Sulfate 324 MG TABLET.DR PO (08:08)
[2025-09-02] MEDS: 0.9 % Sodium Chloride Flush 3 ML SYRINGE IVFLUSH ×2 (08:10→16:24)
[2025-09-02 11:39] LABS: Glucose, Whole Blood 167 mg/dL (60-115)
--- NOTE | 2025-09-02 13:12 | MHC.CM.PN ---
EMR REVIEWED, PT REMAINS MEDICALLY CLEARED FOR DC HOWEVER STILL AWAITING BED OFFER, STILL AWAITING ANSWER FROM 2 FACILITIES, ALL OTHER FACILITIES HAVE DECLINED, CM WILL CONT TO FOLLOW.
[2025-09-02 15:31] VITALS: BP 138/83; PULSE 73; RESP 18; TEMP 36.6; O2SAT 93
[2025-09-02 16:05] LABS: Glucose, Whole Blood 160 mg/dL (60-115)
--- NOTE | 2025-09-02 18:05 | PC.NURSE ---
Per Dr. Stephens pt ok to have Iodized salt with all meals as it does not fall under sodium restriction. Dr. Stephens will change diet order to reflect this.
--- NOTE | 2025-09-02 18:21 | PC.NURSE ---
Patient in hallway yelling I want salt with dinner . Patient had a cardiac/ diabetic /1800 flori diet ordered. Patient sat in hallway and began banging head on wall . This RN notified hospitalist of this occurrence. Patient was escorted by Security back to room willingly. Hospitalist to change diet in computer to added salt. Patient updated regarding change.
--- NOTE | 2025-09-02 20:36 | PC.NURSE ---
pt refusing poc and meds at this time. (note; on previous shift, pt sat in [place] and was banging head, security needed for escorting pt back to room) PA Gia notified.
--- NOTE | 2025-09-03 07:44 | HO.PM.IMPN ---
Subjective Subjective Date of Service: 09/03/25 Interval History: left ear pain Review of Systems patient seems to be putting finger and paper ? in ear right ear has ?some paper and wax left ear also wax -donot see further due to wax. Review of Systems: Yes all other systems are reviewed and are negative Physical Exam Exam: Exam: Appearance: Alert.? Oriented X2. ear exam: please see above.? cvs: rrr, [id number] . res: clear to auscultation. abd: no rebound or guarding ,nt, bs present. ext pulses present , no cyanosis . neuro: axo3 , nonfocal. Vital Signs: Vital Signs: Last Vital Signs Temp 97.8 F 09/02/25 15:31 Pulse 73 09/02/25 15:31 Resp 18 09/02/25 15:31 BP 138/83 09/02/25 15:31 Pulse Ox 93 09/02/25 15:31 O2 Del Method Room Air 09/02/25 15:31 O2 Flow Rate 2 08/14/25 07:29 BMI result Body Mass Index 40.7 Objective Data Active Medications Acetaminophen (Acetaminophen 325 Mg Tablet) 650 mg PO Q6H PRN PRN Reason: Pain, Moderate(Pain Scale 4-6) Last Admin: 09/02/25 02:59 Dose: 650 mg Documented By: JH Ascorbic Acid (Ascorbic Acid 500 Mg Tablet) 500 mg PO DAILY [facility] Last Admin: 09/02/25 08:08 Dose: 500 mg Documented By: NICOLE Aspirin (Aspirin 81 Mg Tab.Chew) 81 mg PO DAILY [facility] Last Admin: 09/02/25 08:08 Dose: 81 mg Documented By: NICOLE Atorvastatin Calcium (Atorvastatin Calcium 40 Mg Tablet) 40 mg PO BEDTIME [facility] Last Admin: 09/02/25 20:39 Dose: Not Given Documented By: NAVEEN Non-Admin Reason: Patient Refused Benzocaine (Throat Lozenge, Medicated Lozenge) 1 lozenge MUCOUS MEM Q2H PRN PRN Reason: Sore Throat Calcium Carbonate (Calcium Carbonate 750 Mg Tab.Chew) 750 mg PO Q4H PRN PRN Reason: Heartburn Last Admin: 08/14/25 18:43 Dose: 750 mg Documented By: GIN Cyanocobalamin (Cyanocobalamin (Vitamin B-12) 1,000 Mcg Tablet) 1,000 mcg PO DAILY [facility] Last Admin: 09/02/25 08:08 Dose: 1,000 mcg Documented By: NICOLE Cyclobenzaprine HCl (Cyclobenzaprine Hcl 5 Mg Tablet) 5 mg PO TID [facility] Last Admin: 09/02/25 20:39 Dose: Not Given Documented By: NAVEEN Non-Admin Reason: Patient Refused Dextrose (Dextrose 50 % 25 Gm/50 Ml Syringe) 25 gm IVPUSH Q15M PRN; Protocol PRN Reason: per Hypoglycemia Standing Ord. Docusate Sodium (Docusate Sodium 100 Mg Capsule) 100 mg PO BID [facility] Last Admin: 09/02/25 20:39 Dose: Not Given Documented By: NAVEEN Non-Admin Reason: Patient Refused Empagliflozin (Empagliflozin 10 Mg Tablet) 10 mg PO DAILY [facility] Last Admin: 09/02/25 08:08 Dose: 10 mg Documented By: NICOLE Enoxaparin Sodium (Enoxaparin Sodium 40 Mg/0.4 Ml Syringe) 40 mg SUBCUT Q24H [facility] Last Admin: 09/02/25 14:06 Dose: 40 mg Documented By: NICOLE Ergocalciferol (Ergocalciferol (Vitamin D2) 1,250 Mcg Capsule) 1,250 mcg PO Fr@0900 [facility] Last Admin: 09/02/25 08:07 Dose: 1,250 mcg Documented By: NICOLE Ferrous Sulfate (Ferrous Sulfate 324 Mg Tablet.Dr) 324 mg PO DAILY [facility] Last Admin: 09/02/25 08:08 Dose: 324 mg Documented By: NICOLE Fluticasone Propionate (Fluticasone Propionate Nasal 16 Gm [place]) 1 spray NOSTRIL-B DAILY [facility] Last Admin: 09/02/25 08:10 Dose: Not Given Documented By: NICOLE Non-Admin Reason: Patient Refused Furosemide (Furosemide 20 Mg Tablet) 20 mg PO DAILY [facility]; Protocol On Hold: 09/02/25 07:59 Last Admin: 09/01/25 07:51 Dose: 20 mg Documented By: MYNOR Gabapentin (Gabapentin 600 Mg Tablet) 600 mg PO TID [facility] Last Admin: 09/02/25 20:39 Dose: Not Given Documented By: NAVEEN Non-Admin Reason: Patient Refused Glucose (Glucose Gel 15 Gm Gel..Gram.) 15 gm PO Q15M PRN; Protocol PRN Reason: per Hypoglycemia Standing Ord. Guaifenesin (Guaifenesin 200 Mg/10 Ml 10 Ml Liquid) 10 ml PO Q4H PRN PRN Reason: Cough Last Admin: 08/29/25 20:08 Dose: 10 ml Documented By: MICHELE Insulin Glargine (Insulin Glargine,Hum.Rec.Anlog 100 Unit/Ml 10 Ml Vial) 15 unit SUBCUT DAILY [facility] On Hold: 09/01/25 14:18 Last Admin: 09/01/25 07:57 Dose: Not Given Documented By: MYNOR Non-Admin Reason: Physician Held Med Insulin Glargine (Insulin Glargine,Hum.Rec.Anlog 100 Unit/Ml 10 Ml Vial) 40 unit SUBCUT BEDTIME [facility] On Hold: 09/01/25 14:20 Last Admin: 08/31/25 21:34 Dose: 40 unit Documented By: NAVEEN Insulin Human Lispro (Insulin Lispro 100 Unit/Ml 3 Ml Vial) 0 unit SUBCUT QIDACHS [facility]; Protocol Last Admin: 09/03/25 07:43 Dose: Not Given Documented By: ELIAS Non-Admin Reason: No Insulin Coverage Lidocaine (Lidocaine 4 % Patch Adh..Patch) 1 patch TRANSDERMA DAILY PRN; Protocol PRN Reason: R flank pain Lidocaine (Lidocaine 4 % Patch Adh..Patch) 2 patch TRANSDERMA DAILY [facility]; Protocol Last Admin: 09/02/25 08:10 Dose: Not Given Documented By: NICOLE Non-Admin Reason: Patient Refused Melatonin (Melatonin 3 Mg Tablet) 6 mg PO BEDTIME [facility] Last Admin: 09/02/25 20:40 Dose: Not Given Documented By: NAVEEN Non-Admin Reason: Patient Refused Metoprolol Succinate (Metoprolol Succinate Er 50 Mg Tab.Er.24h) 50 mg PO DAILY [facility]; Protocol Last Admin: 09/02/25 08:07 Dose: 50 mg Documented By: NICOLE Montelukast Sodium (Montelukast Sodium 10 Mg Tablet) 10 mg PO BEDTIME [facility] Last Admin: 09/02/25 20:40 Dose: Not Given Documented By: NAVEEN Non-Admin Reason: Patient Refused Omeprazole (Omeprazole 20 Mg Capsule.Dr) 20 mg PO DAILY@0800 [facility] Last Admin: 09/02/25 08:08 Dose: 20 mg Documented By: NICOLE Ondansetron HCl (Ondansetron Hcl 4 Mg/2 Ml Vial) 4 mg IVPUSH Q8H PRN PRN Reason: Nausea and Vomiting Polyethylene Glycol (Polyethylene Glycol 3350 17 Gm Powd.Pack) 17 gm PO BID [facility] Last Admin: 09/02/25 20:40 Dose: Not Given Documented By: NAVEEN Non-Admin Reason: Patient Refused Risperidone (Risperidone 1 Mg Tablet) 1 mg PO BID [facility] Last Admin: 09/02/25 20:40 Dose: Not Given Documented By: NAVEEN Non-Admin Reason: Patient Refused Senna (Sennosides 8.6 Mg Tablet) 8.6 mg PO BEDTIME [facility] Last Admin: 09/02/25 20:40 Dose: Not Given Documented By: NAVEEN Non-Admin Reason: Patient Refused Simethicone (Simethicone 80 Mg Tab.Chew) 80 mg PO QIDWMHS PRN PRN Reason: Gas Last Admin: 08/14/25 21:01 Dose: 80 mg Documented By: JUAN Sodium Chloride (0.9 % Sodium Chloride Flush 3 Ml Syringe) 3 ml IVFLUSH QSHIFT [facility] Last Admin: 09/02/25 20:40 Dose: Not Given Documented By: NAVEEN Non-Admin Reason: Patient Refused Sodium Chloride (Sodium Chloride 0.65 % Nasal 44 Ml Sprbtl) 1 spray NOSTRIL-B Q1H PRN PRN Reason: Nasal Congestion Tamsulosin HCl (Tamsulosin Hcl 0.4 Mg Capsule) 0.4 mg PO BEDTIME [facility] Last Admin: 09/02/25 20:40 Dose: Not Given Documented By: NAVEEN Non-Admin Reason: Patient Refused Thiamine HCl (Thiamine Hcl 100 Mg Tablet) 100 mg PO DAILY [facility] Last Admin: 09/02/25 08:08 Dose: 100 mg Documented By: NICOLE Labs 08/29/25 05:23 08/29/25 05:23 Labs: Laboratory Results - last 24 hr 09/02/25 09/02/25 09/02/25 07:46 11:35 16:02 POC Glucose 146 H 167 H 160 H Assessment and Plan (1) Stage 3b chronic kidney disease (CKD): Status: Acute (2) Depression: Status: Acute Plan 75 yo M initially admitted to [facility] 07/15/25 for MDD with self-harming behavior, developed hypoxia and transferred to hospitalist service 08/12 for treatment of multifocal PNA, COPD exacerbation, MAMADOU, hyperkalemia; does not need IPLOC but unable to take care of self, awaiting SNF placement in [place] Bronchitis, improving chest x ray with right lung base airspase disease, worsened from prior. patient completed multiple courses of abs doxycycline + ceftriaxone 08/14-08/17, levofloxacin + doxycycline 08/17-08/19 amd recent prednisone taper Chest CT reviewed, with findings suggestive on bronchitis respiratory panel negative continue diane nase and mucinex. Ear pain : left ear pain b/l ear wax , as well as ? small paper in right ear plan: continue tylenol /debrox ear drop and moniter closely CAD -no acute issues at this time -continue home meds CHF -stable and well compensated, hold lasix for today -adjust therapies as indicated Diabetes type 2, chronic, controlled bodelrine fs improcing with po carbs hold lantus -lispro correctional scale -adjust as indicated Disposition: waiting to be D[place]C to [place] Total time managing care of this patient today: 35 minutes. Quality Stroke Does the patient have a stroke diagnosis?: No VTE Prior VTE?: No VTE Risk Level:: Medical - moderate - high VTE Device Contraindication: Treatment Not Indicated VTE Drug Contraindication: N/A - Med Ordered
[2025-09-03 07:45] LABS: Glucose, Whole Blood 143 mg/dL (60-115)
[2025-09-03 08:23] VITALS: BP 146/65; PULSE 79; RESP 20; TEMP 36.6; O2SAT 93
[2025-09-03] MEDS: Metoprolol Succinate ER 50 MG TAB.ER.24H PO (09:16)
[2025-09-03] MEDS: Ferrous Sulfate 324 MG TABLET.DR PO (09:16)
[2025-09-03] MEDS: Carbamide Peroxide 6.5% Otic 15 ML DRPBTL 5 DROP EAR-BOTH ×2 (11:03→19:36)
[2025-09-03 12:02] LABS: Glucose, Whole Blood 177 mg/dL (60-115)
[2025-09-03 15:47] VITALS: BP 127/72; PULSE 65; RESP 18; TEMP 36.1; O2SAT 94
[2025-09-03 16:17] LABS: Glucose, Whole Blood 159 mg/dL (60-115)
[2025-09-03 19:13] VITALS: BP 129/63; PULSE 74; RESP 19; TEMP 36.2; O2SAT 92
[2025-09-03 19:23] LABS: Glucose, Whole Blood 162 mg/dL (60-115)
[2025-09-04] VITALS (8 sets, daily range): BP systolic 114–142; BP diastolic 56–67; PULSE 64–70; RESP 15–18; TEMP 36.1–36.6; O2SAT 94–96
[2025-09-04 07:41] LABS: Glucose, Whole Blood 155 mg/dL (60-115)
--- NOTE | 2025-09-04 07:49 | HO.PM.IMPN ---
Subjective Subjective Date of Service: 09/04/25 Interval History: left ear pain, anemia No nausea vomiting or abdominal pain Review of Systems says ear pain is somewhat improving-advised to the patient not to put her fingers in ear. denies any gross bleeding Review of Systems: Yes all other systems are reviewed and are negative Physical Exam Exam: Exam: Appearance: Alert.? Oriented X2. ear exam: please see above.? cvs: rrr, [id number] . res: clear to auscultation. abd: no rebound or guarding ,nt, bs present. ext pulses present , no cyanosis . neuro:nonfocal. Vital Signs: Vital Signs: Last Vital Signs Temp 97.1 F 09/03/25 19:13 Pulse 74 09/03/25 19:13 Resp 16 09/04/25 04:00 BP 129/63 09/03/25 19:13 Pulse Ox 92 09/03/25 19:13 O2 Del Method Room Air 09/03/25 19:13 O2 Flow Rate 2 08/14/25 07:29 BMI result Body Mass Index 40.7 Objective Data Active Medications Acetaminophen (Acetaminophen 325 Mg Tablet) 650 mg PO Q6H PRN PRN Reason: Pain, Moderate(Pain Scale 4-6) Last Admin: 09/03/25 16:08 Dose: 650 mg Documented By: ELIAS Ascorbic Acid (Ascorbic Acid 500 Mg Tablet) 500 mg PO DAILY [facility] Last Admin: 09/03/25 09:15 Dose: 500 mg Documented By: ELIAS Aspirin (Aspirin 81 Mg Tab.Chew) 81 mg PO DAILY [facility] Last Admin: 09/03/25 09:16 Dose: 81 mg Documented By: ELIAS Atorvastatin Calcium (Atorvastatin Calcium 40 Mg Tablet) 40 mg PO BEDTIME [facility] Last Admin: 09/03/25 19:35 Dose: 40 mg Documented By: NAVEEN Benzocaine (Throat Lozenge, Medicated Lozenge) 1 lozenge MUCOUS MEM Q2H PRN PRN Reason: Sore Throat Calcium Carbonate (Calcium Carbonate 750 Mg Tab.Chew) 750 mg PO Q4H PRN PRN Reason: Heartburn Last Admin: 08/14/25 18:43 Dose: 750 mg Documented By: GIN Carbamide Peroxide (Carbamide Peroxide 6.5% Otic 15 Ml Drpbtl) 5 drop EAR-BOTH BID [facility] Stop: 09/07/25 09:46 Last Admin: 09/03/25 19:36 Dose: 5 drop Documented By: NAVEEN Cyanocobalamin (Cyanocobalamin (Vitamin B-12) 1,000 Mcg Tablet) 1,000 mcg PO DAILY [facility] Last Admin: 09/03/25 09:16 Dose: 1,000 mcg Documented By: ELIAS Cyclobenzaprine HCl (Cyclobenzaprine Hcl 5 Mg Tablet) 5 mg PO TID [facility] Last Admin: 09/03/25 19:35 Dose: 5 mg Documented By: NAVEEN Dextrose (Dextrose 50 % 25 Gm/50 Ml Syringe) 25 gm IVPUSH Q15M PRN; Protocol PRN Reason: per Hypoglycemia Standing Ord. Docusate Sodium (Docusate Sodium 100 Mg Capsule) 100 mg PO BID [facility] Last Admin: 09/03/25 19:35 Dose: 100 mg Documented By: NAVEEN Empagliflozin (Empagliflozin 10 Mg Tablet) 10 mg PO DAILY [facility] Last Admin: 09/03/25 09:15 Dose: 10 mg Documented By: ELIAS Enoxaparin Sodium (Enoxaparin Sodium 40 Mg/0.4 Ml Syringe) 40 mg SUBCUT Q24H [facility] Last Admin: 09/03/25 15:03 Dose: 40 mg Documented By: ELIAS Ergocalciferol (Ergocalciferol (Vitamin D2) 1,250 Mcg Capsule) 1,250 mcg PO Fr@0900 [facility] Last Admin: 09/02/25 08:07 Dose: 1,250 mcg Documented By: NICOLE Ferrous Sulfate (Ferrous Sulfate 324 Mg Tablet.) 324 mg PO DAILY [facility] Last Admin: 09/03/25 09:16 Dose: 324 mg Documented By: ELIAS Fluticasone Propionate (Fluticasone Propionate Nasal 16 Gm Jarreau) 1 spray NOSTRIL-B DAILY [facility] Last Admin: 09/03/25 09:21 Dose: Not Given Documented By: ELIAS Non-Admin Reason: Patient Refused Furosemide (Furosemide 20 Mg Tablet) 20 mg PO DAILY [facility]; Protocol On Hold: 09/02/25 07:59 Last Admin: 09/01/25 07:51 Dose: 20 mg Documented By: MYNOR Gabapentin (Gabapentin 600 Mg Tablet) 600 mg PO TID [facility] Last Admin: 09/03/25 19:35 Dose: 600 mg Documented By: NAVEEN Glucose (Glucose Gel 15 Gm Gel..Gram.) 15 gm PO Q15M PRN; Protocol PRN Reason: per Hypoglycemia Standing Ord. Guaifenesin (Guaifenesin 200 Mg/10 Ml 10 Ml Liquid) 10 ml PO Q4H PRN PRN Reason: Cough Last Admin: 08/29/25 20:08 Dose: 10 ml Documented By: MICHELE Insulin Glargine (Insulin Glargine,Hum.Rec.Anlog 100 Unit/Ml 10 Ml Vial) 15 unit SUBCUT DAILY [facility] On Hold: 09/01/25 14:18 Last Admin: 09/01/25 07:57 Dose: Not Given Documented By: MYNOR Non-Admin Reason: Physician Held Med Insulin Glargine (Insulin Glargine,Hum.Rec.Anlog 100 Unit/Ml 10 Ml Vial) 40 unit SUBCUT BEDTIME [facility] On Hold: 09/01/25 14:20 Last Admin: 08/31/25 21:34 Dose: 40 unit Documented By: NAVEEN Insulin Human Lispro (Insulin Lispro 100 Unit/Ml 3 Ml Vial) 0 unit SUBCUT QIDACHS [facility]; Protocol Last Admin: 09/04/25 07:46 Dose: 2 unit Documented By: ELIAS Lidocaine (Lidocaine 4 % Patch Adh..Patch) 1 patch TRANSDERMA DAILY PRN; Protocol PRN Reason: R flank pain Lidocaine (Lidocaine 4 % Patch Adh..Patch) 2 patch TRANSDERMA DAILY [facility]; Protocol Last Admin: 09/03/25 09:17 Dose: Not Given Documented By: ELIAS Non-Admin Reason: Patient Refused Melatonin (Melatonin 3 Mg Tablet) 6 mg PO BEDTIME [facility] Last Admin: 09/03/25 19:34 Dose: 6 mg Documented By: NAVEEN Metoprolol Succinate (Metoprolol Succinate Er 50 Mg Tab.Er.24h) 50 mg PO DAILY [facility]; Protocol Last Admin: 09/03/25 09:16 Dose: 50 mg Documented By: ELIAS Montelukast Sodium (Montelukast Sodium 10 Mg Tablet) 10 mg PO BEDTIME [facility] Last Admin: 09/03/25 19:36 Dose: 10 mg Documented By: NAVEEN Omeprazole (Omeprazole 20 Mg Capsule.) 20 mg PO DAILY@0800 [facility] Last Admin: 09/04/25 07:46 Dose: 20 mg Documented By: ELIAS Ondansetron HCl (Ondansetron Hcl 4 Mg/2 Ml Vial) 4 mg IVPUSH Q8H PRN PRN Reason: Nausea and Vomiting Polyethylene Glycol (Polyethylene Glycol 3350 17 Gm Powd.Pack) 17 gm PO BID [facility] Last Admin: 09/03/25 19:36 Dose: Not Given Documented By: NAVEEN Non-Admin Reason: Patient Refused Risperidone (Risperidone 1 Mg Tablet) 1 mg PO BID [facility] Last Admin: 09/03/25 19:35 Dose: 1 mg Documented By: NAVEEN Senna (Sennosides 8.6 Mg Tablet) 8.6 mg PO BEDTIME [facility] Last Admin: 09/03/25 19:35 Dose: 8.6 mg Documented By: NAVEEN Simethicone (Simethicone 80 Mg Tab.Chew) 80 mg PO QIDWMHS PRN PRN Reason: Gas Last Admin: 08/14/25 21:01 Dose: 80 mg Documented By: JUAN Sodium Chloride (0.9 % Sodium Chloride Flush 3 Ml Syringe) 3 ml IVFLUSH QSHIFT [facility] Last Admin: 09/04/25 07:47 Dose: Not Given Documented By: ELIAS Non-Admin Reason: No Access Sodium Chloride (Sodium Chloride 0.65 % Nasal 44 Ml Sprbtl) 1 spray NOSTRIL-B Q1H PRN PRN Reason: Nasal Congestion Tamsulosin HCl (Tamsulosin Hcl 0.4 Mg Capsule) 0.4 mg PO BEDTIME [facility] Last Admin: 09/03/25 19:35 Dose: 0.4 mg Documented By: NAVEEN Thiamine HCl (Thiamine Hcl 100 Mg Tablet) 100 mg PO DAILY [facility] Last Admin: 09/03/25 09:15 Dose: 100 mg Documented By: ELIAS Labs 09/04/25 10:16 09/04/25 09:34 Labs: Laboratory Results - last 24 hr 09/03/25 09/03/25 09/03/25 11:57 16:13 19:17 POC Glucose 177 H 159 H 162 H 09/04/25 07:33 POC Glucose 155 H Assessment and Plan (1) Stage 3b chronic kidney disease (CKD): Status: Acute (2) Depression: Status: Acute Plan 75 yo M initially admitted to [facility] 07/15/25 for MDD with self-harming behavior, developed hypoxia and transferred to hospitalist service 08/12 for treatment of multifocal PNA, COPD exacerbation, MAMADOU, hyperkalemia; does not need IPLOC but unable to take care of self, awaiting SNF placement in [place] new issues: normocytic anemia-acute on ch . Patient denies any gross bleeding or melena Patient is already on iron/cyanocobalamin We will check iron studies, ferritin, fecal occult blood Added PRBC 1 unit, hold aspirin, added PPI Monitor H&H closely May need GI evaluation. Ear pain : left ear pain b/l ear wax , as well as ? small paper in right ear plan: continue tylenol /debrox ear drop and somewhat improving ,will continue to moniter old issues : Bronchitis, improving chest x ray with right lung base airspase disease, worsened from prior. patient completed multiple courses of abs doxycycline + ceftriaxone 08/14-08/17, levofloxacin + doxycycline 08/17-08/19 amd recent prednisone taper Chest CT reviewed, with findings suggestive on bronchitis respiratory panel negative continue diane nase and mucinex. CAD -no acute issues at this time -continue home meds CHF -stable and well compensated, hold lasix for today -adjust therapies as indicated Diabetes type 2, chronic, controlled bodelrine fs improcing with po carbs hold lantus -lispro correctional scale -adjust as indicated Disposition: waiting to be D/C to [place] Total time managing care of this patient today: 35 minutes. Quality Stroke Does the patient have a stroke diagnosis?: No VTE Prior VTE?: No VTE Risk Level:: Medical - moderate - high VTE Device Contraindication: Treatment Not Indicated VTE Drug Contraindication: N/A - Med Ordered
[2025-09-04] MEDS: Carbamide Peroxide 6.5% Otic 15 ML DRPBTL 5 DROP EAR-BOTH ×2 (08:52→20:56)
[2025-09-04] MEDS: Metoprolol Succinate ER 50 MG TAB.ER.24H PO (08:52)
[2025-09-04] MEDS: Ferrous Sulfate 324 MG TABLET.DR PO (08:53)
[2025-09-04 09:46] LABS: Hematocrit 24.3 % (42.0-52.0); Mean Corpuscular HGB Conc 27.6 g/dl (31.0-36.0); Mean Corpuscular Hemoglobin 25.7 pg (27.0-33.0); Mean Corpuscular Volume 93.1 fL (80.0-98.0); NRBC Abs Auto 0.020 X10*3/uL (0.0-0.012); NRBC Pct Auto 0.3 /100WBC (0.0-0.2); Platelet Count 144 X10*3/uL (160-400); Red Blood Count 2.61 X10*6/uL (4.60-5.80); White Blood Count 6.9 X10*3/uL (4.8-10.8)
[2025-09-04 09:57] LABS: Anion Gap 15 (12-20); Blood Urea Nitrogen 38 mg/dL (9-16); Calcium 8.9 mg/dL (8.4-10.2); Carbon Dioxide 22 mmol/L (22-29); Chloride 108 mmol/L (96-108); Creatinine Clr Calc Pharmacy 56.4; Estimated Glomerular Filt Rate 55; Potassium 4.6 mmol/L (3.3-5.1); Sodium 140 mmol/L (135-145)
[2025-09-04 10:11] LABS: Hemoglobin 6.7 g/dl (14.0-18.0)
[2025-09-04 11:01] LABS: Hematocrit 24.1 % (42.0-52.0)
[2025-09-04 11:32] LABS: Hemoglobin 6.8 g/dl (14.0-18.0)
[2025-09-04 11:34] LABS: Glucose, Whole Blood 182 mg/dL (60-115)
[2025-09-04 11:37] LABS: Iron 26 mcg/dL (45-160); Percent Iron Saturation 11 % (15-50); Total Iron Binding Capacity 234 mcg/dL (228-428); Unsaturated Iron Binding 208 ug/dL
[2025-09-04 11:53] LABS: Ferritin 49 ng/mL (20-250)
[2025-09-04 12:08] LABS: Folate 9.8 ng/mL (> or = 4.0); Vitamin B12 1432 pg/mL (200-900)
[2025-09-04 16:07] LABS: Glucose, Whole Blood 185 mg/dL (60-115)
[2025-09-04] MEDS: Furosemide 20 MG/2 ML VIAL IVPUSH (17:58)
[2025-09-04] MEDS: Lidocaine 4 % Patch ADH..PATCH 1 PATCH TRANSDERMA (18:32)
[2025-09-04 20:38] LABS: Glucose, Whole Blood 236 mg/dL (60-115)
[2025-09-04] MEDS: 0.9 % Sodium Chloride Flush 3 ML SYRINGE IVFLUSH (20:56)
[2025-09-05 04:00] VITALS: BP 142/82; PULSE 71; RESP 18; TEMP 36.3; O2SAT 96
[2025-09-05 06:02] LABS: Hematocrit 27.3 % (42.0-52.0); Hemoglobin 8.0 g/dl (14.0-18.0); Mean Corpuscular HGB Conc 29.3 g/dl (31.0-36.0); Mean Corpuscular Hemoglobin 26.2 pg (27.0-33.0); Mean Corpuscular Volume 89.5 fL (80.0-98.0); NRBC Abs Auto 0.040 X10*3/uL (0.0-0.012); NRBC Pct Auto 0.6 /100WBC (0.0-0.2); Platelet Count 144 X10*3/uL (160-400); Red Blood Count 3.05 X10*6/uL (4.60-5.80); White Blood Count 6.6 X10*3/uL (4.8-10.8)
[2025-09-05 06:19] LABS: Anion Gap 14 (12-20); Blood Urea Nitrogen 38 mg/dL (9-16); Calcium 8.6 mg/dL (8.4-10.2); Carbon Dioxide 23 mmol/L (22-29); Chloride 106 mmol/L (96-108); Creatinine Clr Calc Pharmacy 53.9; Estimated Glomerular Filt Rate 52; Potassium 4.6 mmol/L (3.3-5.1); Sodium 138 mmol/L (135-145)
[2025-09-05 07:57] LABS: Glucose, Whole Blood 172 mg/dL (60-115)
[2025-09-05 07:59] VITALS: BP 110/58; PULSE 69; RESP 18; TEMP 36.1; O2SAT 95
[2025-09-05] MEDS: Carbamide Peroxide 6.5% Otic 15 ML DRPBTL 5 DROP EAR-BOTH ×2 (08:55→20:43)
[2025-09-05] MEDS: Ferrous Sulfate 324 MG TABLET.DR PO (08:57)
[2025-09-05] MEDS: Metoprolol Succinate ER 50 MG TAB.ER.24H PO (08:57)
[2025-09-05] MEDS: 0.9 % Sodium Chloride Flush 3 ML SYRINGE IVFLUSH ×3 (08:58→20:49)
--- NOTE | 2025-09-05 11:13 | PM.DS ---
DS: Providers Provider Date of Service: 09/07/25 Date of admission: 08/12/25 07:00 Date of discharge: 09/07/25 Primary care physician: Unknown Physician Consults: 08/12/25 06:37 Consult for Sitter Routine Reason for consultation: depression, self harm, [facility] pt Has provider been notified: No 08/15/25 10:30 In CARE Team Crisis Consult Routine Comment: Reason for consultation: transfer to [facility] Attending physician on discharge: Harleen Beltre Discharging clinician: Harleen Beltre DS: Diagnosis Discharge Diagnosis (1) Stage 3b chronic kidney disease (CKD): Status: Acute (2) Depression: Status: Acute DS: Summary Hospital Course Hospital Course: 75 year old who was initially admitted to [facility] for MDD with self harming behavior on 07/15, developed acute hypoxic respiratory failure requiring supplemental oxygen. on imaging found to have bilateral multifocal pneumonia. treated with IV abs and steroids with improvement of his symptoms. patient developed mild MAMADOU and hyperkalemia, resolved after holding losartan and gabapentin. Patient at this time states that he feels well, denies any SOB. patient assessed by PT/OT and does not require any PT/OT at this time Acute respiratory failure with hypoxia due to multifocal pneumonia with bilateral pleural effusions and acute COPD exacerbation, resolved multiple courses of abs doxycycline + ceftriaxone 08/14-08/17, levofloxacin + doxycycline 08/17-08/19 and recent prednisone taper. Patient is currently asymptomatic, no shortness of breath no cough , sats are in 95% range even with ambulating. Possible otitis externa?: Added otic eardrops. normocytic anemia-acute on ch . Patient denies any gross bleeding or melena Patient is already on iron/cyanocobalamin Iron study and B12 and folate level noted-B12 and folate normal, iron and iron sats slightly low unclear if he is taking his iron p.o. Received PRBC 1 unit, adjusted PPIs. Monitor CBC and follow up with GI outpatient Hyperkalemia, resolved continue lasix hold losartan and rogelio for now, restart as outpatient. Monitor BMP, follow up with Nephrology outpatient chronic constipation bowel regimen Depression with self harming behavior per care team not a patient for psych at this time as no HI/SI chronic normocytic anemia H/H at baseline continue iron, b12, thiamine supplementation chronic pain Continue home medication. morbid obesity BMI elevated body habitus likely contributing to respiratory symptoms Coronary artery disease/history of stroke/CHF/hypertension aspirin, P atorvastatin, Jardiance, metoprolol and Lasix hold losartan for hyperkalemia and MAMADOU, may restart as outpatient. 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 Chronic kidney disease Stage 3B appears stable with baseline renal function Vitamin-D deficiency vit D BPH tamsulosin plan: Anemia: Currently denies any melena or any blood loss grossly, discussed with the GI follow CBC outpatient, follow up with GI outpatient.PPIs adjusted 40 mg p.o. b.i.d. Patient is already taking iron and cyanocobalamin-encouraged to continue. follow up with GI outpatient. Fingersticks are running 180's -adjusted Lantus to 5 units daily and 5 units at bedside, monitor fingersticks. Diabetic education given. Completed antibiotics, repeat chest imaging in 2 weeks outpatient. For ear pain added otic eardrops for left ear. follow up with psychiatry as outpatient hold losartan and gabapentin secondary to kidney disease and intial high potassium. Monitor BMP outpatient andFollow up with Nephrology ,psych outpatient f/u Discussed with the patient's granddaughter about above in detail as well as appointment needs to be arrange outpatient. Candidate is agreeable with the above, [employer] staff witnessed conversation. Assessment and plan coordination time spent 50 minute. Time Attestation Total time managing care of this patient today: 50 mintues. Discharge Coordination Time (in mins): 50 min Quality: Safe Use of Opioids Does Pt have an Active Cancer Diagnosis on the Problem List?: No Quality: Stroke Does the patient have a stroke diagnosis?: No Physical Exam Exam: Exam: Appearance: awke ,Alert seems at baseline. ear exam: has wax in right ear, and mild erythema of left ear canal area. cvs: rrr, [id number] . res: clear to auscultation. abd: no rebound or guarding ,nt, bs present. ext pulses present , no cyanosis . neuro:nonfocal. Vital Signs: Vital Signs: Last Vital Signs Temp 97.0 F 09/05/25 07:59 Pulse 69 09/05/25 07:59 Resp 18 09/05/25 07:59 BP 110/58 L 09/05/25 07:59 Pulse Ox 95 09/05/25 07:59 O2 Del Method Room Air 09/05/25 07:59 O2 Flow Rate 2 08/14/25 07:29 BMI result Body Mass Index 40.7 DS: Data Data Completed and Pending Labs on day of discharge: Laboratory Results - last 24 hr 09/04/25 09/04/25 09/04/25 09:34 10:16 11:29 WBC RBC Hgb 6.8 L* Hct 24.1 L MCV MCH MCHC RDW Plt Count MPV Absolute Nucleated RBC Nucleated RBC % (auto) Smear Path Review SEE NOTE Sodium Potassium Chloride Carbon Dioxide Anion Gap BUN Creatinine Estim Creat Clear Calc Estimated GFR POC Glucose 182 H Random Glucose Calcium Iron 26 L TIBC 234 % Saturation 11 L Unsat Iron Binding 208 Ferritin 49 Vitamin B12 1432 H Folate 9.8 Blood Type O Positive Antibody Screen NEGATIVE Crossmatch See Detail 09/04/25 09/04/25 09/05/25 16:01 20:34 05:20 WBC 6.6 RBC 3.05 L Hgb 8.0 L Hct 27.3 L MCV 89.5 MCH 26.2 L MCHC 29.3 L RDW 18.6 H Plt Count 144 L MPV 10.7 Absolute Nucleated RBC 0.040 H Nucleated RBC % (auto) 0.6 H Smear Path Review Sodium 138 Potassium 4.6 Chloride 106 Carbon Dioxide 23 Anion Gap 14 BUN 38 H Creatinine 1.34 Estim Creat Clear Calc 53.9 Estimated GFR 52 POC Glucose 185 H 236 H Random Glucose 207 H Calcium 8.6 Iron TIBC % Saturation Unsat Iron Binding Ferritin Vitamin B12 Folate Blood Type Antibody Screen Crossmatch 09/05/25 07:43 WBC RBC Hgb Hct MCV MCH MCHC RDW Plt Count MPV Absolute Nucleated RBC Nucleated RBC % (auto) Smear Path Review Sodium Potassium Chloride Carbon Dioxide Anion Gap BUN Creatinine Estim Creat Clear Calc Estimated GFR POC Glucose 172 H Random Glucose Calcium Iron TIBC % Saturation Unsat Iron Binding Ferritin Vitamin B12 Folate Blood Type Antibody Screen Crossmatch Imaging Chest x-ray: Radiologist's impression: ITS Impressions Chest X-Ray 08/26/25 12:55 IMPRESSION: Mild interval worsening of the findings suggestive of airspace disease in the right lung base. Discharge Plan Discharge Anticipated Discharge Date/Time: 09/05/25 15:23 Patient Disposition: Home, Self-Care Discharge Diagnosis: MDD, Pneumonia Referrals: Joaquin Barrow MD [Physician, Critical Care ([facility])] - 1 Week Jeremi Scott MD [Physician, Gastroenterology] - 1 Week Physician,Alexis Gaona [Primary Care Provider, Medical] - 1 Week Discharge Medications: New carbamide peroxide 6.5 % Drops 5 drp otic (ears) BID Qty: 30 0RF (DME) FreeStyle Lite Strips Strip Qty: 100 0RF Rx Instructions: Test four times a day or as directed. (DME) blood-glucose meter [FreeStyle Lite Meter] Kit Qty: 1 0RF Rx Instructions: As Directed alcohol swabs Pads, Medicated 1 pad TOPICAL QIDACHS Qty: 100 0RF Rx Instructions: Use four times a day or as directed. insulin glargine [Lantus Solostar U-100 Insulin] 100 unit/mL (3 mL) insulin pen 5 unit SUBCUT DAILY Qty: 15 0RF (DME) pen needle, diabetic 32 gauge x 1/4 needle Qty: 100 0RF Rx Instructions: Use four times a day or as directed. (DME) lancets [FreeStyle Lancets] 28 gauge misc Qty: 100 0RF Rx Instructions: Test four times a day or as directed. [id number] 3.5-10,000-1 mg/mL-unit/mL-% Drops,Suspension 3 drp otic (ear) left QID Qty: 30 0RF Continued atorvastatin 40 mg Tablet 40 mg PO BEDTIME Qty: 0 0RF tizanidine 4 mg Tablet 2 mg PO BEDTIME Qty: 0 0RF metoprolol succinate 50 mg Tablet Extended Release 24 Hr 50 mg PO DAILY Qty: 0 0RF tramadol 50 mg Tablet 50 mg PO Q6H PRN (Reason: severe left hip pain) Qty: 0 0RF lorazepam 0.5 mg Tablet 0.5 mg PO BID PRN (Reason: Anxiety) Qty: 0 0RF tamsulosin 0.4 mg Capsule 0.4 mg PO BEDTIME Qty: 0 0RF docusate sodium 100 mg Capsule 100 mg PO BID Qty: 0 0RF aspirin 81 mg Tablet,Chewable 81 mg PO DAILY Qty: 0 0RF furosemide 20 mg Tablet 20 mg PO DAILY Qty: 0 0RF Protocol: Hold for SBP< HOLD for SBP < : 90 albuterol sulfate [Ventolin HFA] 90 mcg/actuation Hfa Aerosol Inhaler 2 puff inhalation RQ4H PRN (Reason: SOB/Wheezing) Qty: 0 0RF fluticasone propionate 50 mcg/actuation [place],Suspension 1 spray intranasal DAILY Qty: 0 0RF risperidone 1 mg Tablet 1 mg PO BID Qty: 0 0RF [place] Nasal 0.65 % Aerosol,[place] 1 spray intranasal Q1H PRN (Reason: Nasal congestion) Qty: 0 0RF ferrous sulfate 324 mg (65 mg iron) Tablet,Delayed Release (Dr/Ec) 324 mg PO DAILY Qty: 0 0RF Sore Throat (benzocaine-menth) 15-3.6 mg Lozenge 1 eduar mucous membrane Q2H PRN (Reason: Sore Throat) Qty: 0 0RF Spiriva Respimat 2.5 mcg/actuation Mist 2 puff inhalation RDAILY Qty: 0 0RF sennosides [Senna Lax] 8.6 mg Tablet 8.6 mg PO BEDTIME Qty: 0 0RF lidocaine [Lidocaine Pain Relief] 4 % Adhesive Patch,Medicated 1 patch transdermal DAILY PRN (Reason: R flank pain) Qty: 0 0RF Protocol: Apply to: Apply to: R flank polyethylene glycol 3350 17 gram Powder In Packet 17 g PO DAILY Qty: 0 0RF cyanocobalamin (vitamin B-12) [Vitamin B-12] 1,000 mcg Tablet 1,000 mcg PO DAILY Qty: 0 0RF melatonin 3 mg Tablet 6 mg PO BEDTIME Qty: 0 0RF ascorbic acid (vitamin C) [Vitamin C] 500 mg Tablet 500 mg PO DAILY Qty: 0 0RF montelukast 10 mg Tablet 10 mg PO BEDTIME Qty: 0 0RF ergocalciferol (vitamin D2) [Vitamin D2] 1,250 mcg (50,000 unit) Capsule 1,250 mcg PO Fr@0900 Qty: 0 0RF insulin lispro [Admelog U-100 Insulin lispro] 100 unit/mL Solution See Protocol subcut QIDACHS Qty: 0 0RF Protocol: Insulin Correction Scale Less than or equal to 110 ---- Give (units): 0 111 to 150 Give (units): 0 151 to 200 Give (units): 2 201 to 250 Give (units): 4 251 to 300 Give (units): 6 301 to 350 Give (units): 8 Greater than 350 Give (units): 10 Call MD if Blood Glucose > : 350 thiamine mononitrate (vit B1) 100 mg Tablet 100 mg PO DAILY Qty: 0 0RF Jardiance 10 mg Tablet 10 mg PO DAILY Qty: 0 0RF Changed pantoprazole 20 mg Tablet,Delayed Release (Dr/Ec) 40 mg PO BID Qty: 120 0RF insulin glargine [Lantus U-100 Insulin] 100 unit/mL Solution 5 unit subcut DAILY Qty: 15 0RF Discontinued gabapentin 600 mg Tablet 600 mg PO TID Qty: 0 0RF insulin glargine [Lantus U-100 Insulin] 100 unit/mL Solution 50 unit subcut BEDTIME Qty: 0 0RF Discharge Orders: Discharge Order (Routine); Ordered 09/05/25 Ordered By: Harleen Beltre Diet: Advance to usual diet Activity on Discharge: As tolerated Stand Alone Forms: Patient Portal Discharge page Print Language: German Care Plan Goals: continue taking antibiotics for Pneumonia continue with depression medications Health Concerns: depression with psychosis diabetes pneumonia Plan of Treatment: Anemia: Currently denies any melena or any blood loss grossly, discussed with the GI follow CBC outpatient, follow up with GI outpatient. Fingersticks are running 180's -adjusted Lantus to 5 units daily and 5 units at bedside, monitor fingersticks. Diabetic education given. PPIs adjusted 40 mg p.o. b.i.d. Patient is already taking iron and cyanocobalamin. Completed antibiotics, repeat chest imaging in 2 weeks outpatient. For ear pain added otic eardrops for left ear. follow up with psychiatry as outpatient hold losartan and gabapentin secondary to kidney disease and high potassium Assessment: 75 year old who was initially admitted to [facility] for MDD with self harming behavior on 07/15, developed acute hypoxic respiratory failure requiring supplemental oxygen. on imaging found to have bilateral multifocal pneumonia. treated with IV abs and steroids with improvement of his symptoms. Stable for discharge. Patient at this time states that he feels well, denies any SOB. Patient Instructions: Bacterial Pneumonia (DC), Depression in Older Adults (DC) Discharge Date/Time: 09/06/25 11:04
[2025-09-05 12:00] LABS: Glucose, Whole Blood 201 mg/dL (60-115)
[2025-09-05] MEDS: Insulin Glargine,Hum.rec.anlog 100 UNIT/ML 10 ML VIAL SUBCUT ×2 (12:54→20:42)
--- NOTE | 2025-09-05 13:57 | MHC.CM.PN ---
No bed offers at this time. Per MD, medically cleared for dc. Granddaughter would like to discuss w/ and will come to [facility] this evening. Will potentially bring patient home tonight. aware.
[2025-09-05 16:00] VITALS: BP 129/80; PULSE 73; RESP 18; TEMP 36.3; O2SAT 91
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
[2025-09-05 16:27] LABS: Glucose, Whole Blood 167 mg/dL (60-115)
[2025-09-05 20:00] VITALS: BP 146/62; PULSE 76; RESP 19; TEMP 36.2; O2SAT 93
[2025-09-05 20:30] LABS: Glucose, Whole Blood 207 mg/dL (60-115)
[2025-09-05] MEDS: NeoMYCIN/Polymyxin/HC Otic Sus 10 ML DRPBTL 3 DROP EAR-LEFT (20:43)
[2025-09-06 03:29] VITALS: BP 143/63; PULSE 81; RESP 18; TEMP 36.1; O2SAT 93
--- NOTE | 2025-09-06 07:30 | P.PNIM_ITS ---
Subjective Subjective Date of Service: 09/06/25 Interval History: seems better Review of Systems no new c/o Physical Exam 2 Exam: Exam: Appearance: Alert.? Oriented X2. ear exam: please see above.? cvs: rrr, [id number] . res: clear to auscultation. abd: no rebound or guarding ,nt, bs present. ext pulses present , no cyanosis . neuro:nonfocal. Vital Signs: Vital Signs: Last Vital Signs Temp 96.9 F 09/06/25 03:29 Pulse 81 09/06/25 03:29 Resp 18 09/06/25 03:29 BP 143/63 H 09/06/25 03:29 Pulse Ox 93 09/06/25 03:29 O2 Del Method Room Air 09/06/25 03:29 O2 Flow Rate 2 08/14/25 07:29 BMI result Body Mass Index 40.7 Objective Data Active Medications Acetaminophen (Acetaminophen 325 Mg Tablet) 650 mg PO Q6H PRN PRN Reason: Pain, Moderate(Pain Scale 4-6) Last Admin: 09/05/25 15:15 Dose: 650 mg Documented By: SVITLANA Ascorbic Acid (Ascorbic Acid 500 Mg Tablet) 500 mg PO DAILY [facility] Last Admin: 09/05/25 08:57 Dose: 500 mg Documented By: SVITLANA Aspirin (Aspirin 81 Mg Tab.Chew) 81 mg PO DAILY [facility] On Hold: 09/04/25 10:09 Last Admin: 09/04/25 08:53 Dose: 81 mg Documented By: ELIAS Atorvastatin Calcium (Atorvastatin Calcium 40 Mg Tablet) 40 mg PO BEDTIME [facility] Last Admin: 09/05/25 20:43 Dose: 40 mg Documented By: MICHELE Benzocaine (Throat Lozenge, Medicated Lozenge) 1 lozenge MUCOUS MEM Q2H PRN PRN Reason: Sore Throat Calcium Carbonate (Calcium Carbonate 750 Mg Tab.Chew) 750 mg PO Q4H PRN PRN Reason: Heartburn Last Admin: 08/14/25 18:43 Dose: 750 mg Documented By: GIN Carbamide Peroxide (Carbamide Peroxide 6.5% Otic 15 Ml Drpbtl) 5 drop EAR-BOTH BID MARCIA Stop: 09/07/25 09:46 Last Admin: 09/05/25 20:43 Dose: 5 drop Documented By: MICHELE Cyanocobalamin (Cyanocobalamin (Vitamin B-12) 1,000 Mcg Tablet) 1,000 mcg PO DAILY [facility] Last Admin: 09/05/25 08:57 Dose: 1,000 mcg Documented By: SVITLANA Cyclobenzaprine HCl (Cyclobenzaprine Hcl 5 Mg Tablet) 5 mg PO TID [facility] Last Admin: 09/05/25 20:43 Dose: 5 mg Documented By: MICHELE Dextrose (Dextrose 50 % 25 Gm/50 Ml Syringe) 25 gm IVPUSH Q15M PRN; Protocol PRN Reason: per Hypoglycemia Standing Ord. Docusate Sodium (Docusate Sodium 100 Mg Capsule) 100 mg PO BID [facility] Last Admin: 09/05/25 20:43 Dose: 100 mg Documented By: MICHELE Empagliflozin (Empagliflozin 10 Mg Tablet) 10 mg PO DAILY [facility] Last Admin: 09/05/25 08:57 Dose: 10 mg Documented By: SVITLANA Ergocalciferol (Ergocalciferol (Vitamin D2) 1,250 Mcg Capsule) 1,250 mcg PO Fr@0900 [facility] Last Admin: 09/02/25 08:07 Dose: 1,250 mcg Documented By: NICOLE Ferrous Sulfate (Ferrous Sulfate 324 Mg Tablet.Dr) 324 mg PO DAILY [facility] Last Admin: 09/05/25 08:57 Dose: 324 mg Documented By: SVITLANA Fluticasone Propionate (Fluticasone Propionate Nasal 16 Gm [place]) 1 spray NOSTRIL-B DAILY [facility] Last Admin: 09/05/25 08:57 Dose: 1 spray Documented By: SVITLANA Furosemide (Furosemide 20 Mg Tablet) 20 mg PO DAILY [facility]; Protocol On Hold: 09/02/25 07:59 Last Admin: 09/01/25 07:51 Dose: 20 mg Documented By: MYNOR Gabapentin (Gabapentin 600 Mg Tablet) 600 mg PO TID [facility] Last Admin: 09/05/25 20:43 Dose: 600 mg Documented By: MICHELE Glucose (Glucose Gel 15 Gm Gel..Gram.) 15 gm PO Q15M PRN; Protocol PRN Reason: per Hypoglycemia Standing Ord. Guaifenesin (Guaifenesin 200 Mg/10 Ml 10 Ml Liquid) 10 ml PO Q4H PRN PRN Reason: Cough Last Admin: 08/29/25 20:08 Dose: 10 ml Documented By: MICHELE Insulin Glargine (Insulin Glargine,Hum.Rec.Anlog 100 Unit/Ml 10 Ml Vial) 5 unit SUBCUT BEDTIME [facility] Last Admin: 09/05/25 20:42 Dose: 5 unit Documented By: MICHELE Insulin Glargine (Insulin Glargine,Hum.Rec.Anlog 100 Unit/Ml 10 Ml Vial) 5 unit SUBCUT DAILY [facility] Last Admin: 09/05/25 12:54 Dose: 5 unit Documented By: SVITLANA Insulin Human Lispro (Insulin Lispro 100 Unit/Ml 3 Ml Vial) 0 unit SUBCUT QIDACHS [facility]; Protocol Last Admin: 09/05/25 20:42 Dose: 4 unit Documented By: MICHELE Lidocaine (Lidocaine 4 % Patch Adh..Patch) 1 patch TRANSDERMA DAILY PRN; Protocol PRN Reason: R flank pain Last Admin: 09/04/25 18:32 Dose: 1 patch Documented By: ELIAS Lidocaine (Lidocaine 4 % Patch Adh..Patch) 2 patch TRANSDERMA DAILY [facility]; Protocol Last Admin: 09/05/25 08:56 Dose: Not Given Documented By: SVITLANA Non-Admin Reason: Patient Refused Melatonin (Melatonin 3 Mg Tablet) 6 mg PO BEDTIME [facility] Last Admin: 09/05/25 20:43 Dose: 6 mg Documented By: MICHELE Metoprolol Succinate (Metoprolol Succinate Er 50 Mg Tab.Er.24h) 50 mg PO DAILY [facility]; Protocol Last Admin: 09/05/25 08:57 Dose: 50 mg Documented By: SVITLANA Montelukast Sodium (Montelukast Sodium 10 Mg Tablet) 10 mg PO BEDTIME [facility] Last Admin: 09/05/25 20:43 Dose: 10 mg Documented By: MICHELE Neomycin/Polymyxin/Hydrocortisone (Neomycin/Polymyxin/Hc Otic Cathy 10 Ml Drpbtl) 3 drop EAR-LEFT QID [facility] Last Admin: 09/05/25 20:43 Dose: 3 drop Documented By: MICHELE Omeprazole (Omeprazole 20 Mg Capsule.Dr) 20 mg PO DAILY@0800 [facility] Last Admin: 09/05/25 08:56 Dose: 20 mg Documented By: SVITLANA Ondansetron HCl (Ondansetron Hcl 4 Mg/2 Ml Vial) 4 mg IVPUSH Q8H PRN PRN Reason: Nausea and Vomiting Pantoprazole Sodium (Pantoprazole Sodium 40 Mg/10 Ml Vial) 40 mg IVPUSH BID@0630,1630 [facility] Last Admin: 09/06/25 06:02 Dose: Not Given Documented By: MICHELE Non-Admin Reason: No Access Polyethylene Glycol (Polyethylene Glycol 3350 17 Gm Powd.Pack) 17 gm PO BID [facility] Last Admin: 09/05/25 20:53 Dose: Not Given Documented By: MICHELE Non-Admin Reason: Patient Refused Risperidone (Risperidone 1 Mg Tablet) 1 mg PO BID [facility] Last Admin: 09/05/25 20:43 Dose: 1 mg Documented By: MICHELE Senna (Sennosides 8.6 Mg Tablet) 8.6 mg PO BEDTIME [facility] Last Admin: 09/05/25 20:43 Dose: 8.6 mg Documented By: MICHELE Simethicone (Simethicone 80 Mg Tab.Chew) 80 mg PO QIDWMHS PRN PRN Reason: Gas Last Admin: 08/14/25 21:01 Dose: 80 mg Documented By: JUAN Sodium Chloride (0.9 % Sodium Chloride Flush 3 Ml Syringe) 3 ml IVFLUSH QSHIFT [facility] Last Admin: 09/05/25 20:49 Dose: 3 ml Documented By: MICHELE Sodium Chloride (Sodium Chloride 0.65 % Nasal 44 Ml Sprbtl) 1 spray NOSTRIL-B Q1H PRN PRN Reason: Nasal Congestion Tamsulosin HCl (Tamsulosin Hcl 0.4 Mg Capsule) 0.4 mg PO BEDTIME [facility] Last Admin: 09/05/25 20:43 Dose: 0.4 mg Documented By: MICHELE Thiamine HCl (Thiamine Hcl 100 Mg Tablet) 100 mg PO DAILY [facility] Last Admin: 09/05/25 08:56 Dose: 100 mg Documented By: SVITLANA Labs 09/05/25 05:20 09/05/25 05:20 Labs: Laboratory Results - last 24 hr 09/04/25 09/05/25 09/05/25 09:34 07:43 11:52 Smear Path Review SEE NOTE POC Glucose 172 H 201 H 09/05/25 09/05/25 16:24 20:27 Smear Path Review POC Glucose 167 H 207 H Assessment and Plan (1) Stage 3b chronic kidney disease (CKD): Status: Acute (2) Depression: Status: Acute Plan 75 yo M initially admitted to [facility] 07/15/25 for MDD with self-harming behavior, developed hypoxia and transferred to hospitalist service 08/12 for treatment of multifocal PNA, COPD exacerbation, MAMADOU, hyperkalemia; does not need IPLOC but unable to take care of self, awaiting SNF placement in [place] new issues: normocytic anemia-acute on ch . Patient denies any gross bleeding or melena Patient is already on iron/cyanocobalamin s/p 1prbc -h/h in 8 range Ear pain : left ear pain b/l ear wax , as well as ? small paper in right ear plan: continue tylenol /debrox ear drop and improved significantly. old issues : Bronchitis, improving chest x ray with right lung base airspase disease, worsened from prior. patient completed multiple courses of abs doxycycline + ceftriaxone 08/14-08/17, levofloxacin + doxycycline 08/17-08/19 amd recent prednisone taper Chest CT reviewed, with findings suggestive on bronchitis respiratory panel negative continue diane nase and mucinex. CAD -no acute issues at this time -continue home meds CHF -stable and well compensated, hold lasix for today -adjust therapies as indicated Diabetes type 2, chronic, controlled bodelrine fs improcing with po carbs hold lantus -lispro correctional scale -adjust as indicated Disposition: Patient awaiting discharge, discharge paperwork done, grand daughter could not able to come and pick him up Total time managing care of this patient today: 35 minutes. Quality Stroke Does the patient have a stroke diagnosis?: No VTE Prior VTE?: No VTE Risk Level:: Medical - moderate - high VTE Device Contraindication: Treatment Not Indicated VTE Drug Contraindication: N/A - Med Ordered
[2025-09-06 07:36] LABS: Glucose, Whole Blood 142 mg/dL (60-115)
[2025-09-06 08:00] VITALS: BP 132/84; PULSE 77; RESP 14; TEMP 36.1; O2SAT 93
[2025-09-06] MEDS: Metoprolol Succinate ER 50 MG TAB.ER.24H PO (08:06)
[2025-09-06] MEDS: Ferrous Sulfate 324 MG TABLET.DR PO (08:07)
[2025-09-06] MEDS: NeoMYCIN/Polymyxin/HC Otic Sus 10 ML DRPBTL 3 DROP EAR-LEFT (08:07)
[2025-09-06] MEDS: Insulin Glargine,Hum.rec.anlog 100 UNIT/ML 10 ML VIAL SUBCUT (08:07)
[2025-09-06] MEDS: Carbamide Peroxide 6.5% Otic 15 ML DRPBTL 5 DROP EAR-BOTH (08:07)
--- NOTE | 2025-09-06 10:22 | MHC.CM.PN ---
Addendum entered by Abi Albrecht RN 09/06/25 10:38: DC plan reviewed w/ patient via business analysis specialist. Patient agreeable to plan and verbalized understanding. Original Note: Granddaughter Demary did not grain picker patient last night. CM and MD called this morning. Granddaughter agreed to grain picker patient prior to 12pm. MD reviewed hospital course, and outpatient follow up needed. Sudhir verbalized understanding and will pick patient up in dc lounge by noon.
--- NOTE | 2025-09-28 09:25 | P.CDIM_ITS ---
PROVIDER RESPONSE TEXT: To clarify, the appropriate diagnosis supported by the clinical indicators: Acute or subacute QUERY TEXT: PHYSICIAN'S DOCUMENTATION REQUEST Date of Query: 09/21/2025 05:25 AM EST Patient Name: Deejay Yu Admit Date: 08/12/2025 Dear Harleen Beltre MD, RETROSPECTIVE QUERY A review of the medical record indicates additional documentation may be needed. Please review below and update the documentation accordingly. Clinical Indicators: Progress note dated 08/27/25- Right lower base with rales, Suspect URI infection/Bronchitis. Chest x-ray with right lung base airspace disease, worsened from prior, patient on multiple courses of abs doxycycline + ceftriaxone 08/14-08/17, levofloxacin + doxycycline 08/17-08/19 and recent prednisone taper. Progress note 08/28/25 - Bronchitis, Chest CT reviewed, with findings suggestive of Bronchitis. Progress note 09/04/25 - Bronchitis, improving Clarify which of the following accurately represents further specificity to the documented Bronchitis for this admission: Possible options might include: Acute or subacute Chronic Viral, acute or subacute Chemical Asthmatic Obstructive Other (explain) Clinically unable to determine (explain) Thank you, Josefa Sweeney, CCS, CDIS Use of terms such as suspected, likely, concern for, or probable (associated with a specific diagnosis that is being evaluated, monitored, or treated as if it exists) are acceptable and can be coded in the inpatient setting, when documented at the time of discharge. Please use your independent medical judgment in providing your response. THIS QUERY IS PART OF THE PERMANENT MEDICAL RECORD
== END 2025-09-06 11:04 | disposition home or self-care (01) | DRG 193 ==
LOC: HO.IMC 08-17 07:21 → HO.S3 08-17 22:36
PROVIDERS: Family Medicine; Hospitalist; Physician Assistant Medical; Student in an Organized Health Care Education/Training Program; Admitting Provider Physician Assistant; Visit Provider Internal Medicine
DX: J18.9 Pneumonia, unspecified organism (principal); J96.01 Acute respiratory failure with hypoxia; F33.9 Major depressive disorder, recurrent, unspecified; I13.0 Hypertensive heart and chronic kidney disease with heart failure and stage 1 through stage 4 chronic kidney disease, or unspecified chronic kidney disease; J91.8 Pleural effusion in other conditions classified elsewhere; J44.0 Chronic obstructive pulmonary disease with (acute) lower respiratory infection; J44.1 Chronic obstructive pulmonary disease with (acute) exacerbation; N17.9 Acute kidney failure, unspecified; Z68.41 Body mass index [BMI] 40.0-44.9, adult; N18.32 Chronic kidney disease, stage 3b; I50.9 Heart failure, unspecified; E11.22 Type 2 diabetes mellitus with diabetic chronic kidney disease; E11.65 Type 2 diabetes mellitus with hyperglycemia; D63.1 Anemia in chronic kidney disease; I25.10 Atherosclerotic heart disease of native coronary artery without angina pectoris; E87.5 Hyperkalemia; N40.0 Benign prostatic hyperplasia without lower urinary tract symptoms; K21.9 Gastro-esophageal reflux disease without esophagitis; E55.9 Vitamin D deficiency, unspecified; E11.42 Type 2 diabetes mellitus with diabetic polyneuropathy; K59.09 Other constipation; E11.649 Type 2 diabetes mellitus with hypoglycemia without coma; E66.01 Morbid (severe) obesity due to excess calories; H60.92 Unspecified otitis externa, left ear; G89.29 Other chronic pain; Z86.73 Personal history of transient ischemic attack (TIA), and cerebral infarction without residual deficits; Z91.148 Patient's other noncompliance with medication regimen for other reason; J20.9 Acute bronchitis, unspecified; Z20.822 Contact with and (suspected) exposure to COVID-19; Z75.1 Person awaiting admission to adequate facility elsewhere; Z91.52 Personal history of nonsuicidal self-harm; Z79.82 Long term (current) use of aspirin; Z79.4 Long term (current) use of insulin; Z79.899 Other long term (current) drug therapy
CPT/HCPCS: 36415; 36600; 71045; 71046; 71250; 80048; 80053; 81001; 82607; 82728; 82746; 82803; 82947; 83540; 84132; 85007; 85014; 85018; 85025; 85027; 86850; 86900; 86901; 86923; 87633; 92526; 92610; 93005; 94640; 97161; J0696; J1271; J1644; J1650; J1938; J2470; J2919; P9016; S9485

== ENCOUNTER → 2025-08-12 07:00 | Outpatient (BNV) | payer MEDICARE, SELFPAY | PROVIDERS: Admitting Provider Physician Assistant; Visit Provider Physician Assistant Medical | DX: F32.A Depression, unspecified (principal) | CPT/HCPCS: 99223; 99232; 99233; 99499 ==